=== PATIENT | male | born 1980 | race Caucasian/White ===

== ENCOUNTER 2021-11-02 23:31 | Emergency (ER) | payer MEDICAID, SELFPAY ==
[2021-11-02 23:39] VITALS: BP 160/87; BP 168/82; PULSE 105; PULSE 90; RESP 16; TEMP 36.8; O2SAT 95; O2SAT 97; BMI 25.8
[2021-11-02 23:44] LABS: Glucose, Whole Blood 111 mg/dL (60-115)
[2021-11-02 23:47] VITALS: PULSE 104; RESP 16; O2SAT 97
--- NOTE | 2021-11-03 03:31 | ED.ALCOHOL ---
HPI - Alcohol General Chief Complaint: ETOH/Substance Use Stated Complaint: ETOH USE Time Seen by Provider: 11/03/21 03:31 Source: patient Mode of arrival: EMS Limitations: no limitations History of Present Illness HPI narrative: 41-year-old male who is brought to emergency department for evaluation of alcohol intoxication. Patient states that he was drinking vodka and beer. He states that he was walking and got tired and sat down and fell asleep. Patient was found outside with altered mental status, EMS report that the patient was outside of a [employer]. The patient had no complaints and was transported to the emergency department for evaluation. When I evaluated the patient he told me that he drinks anywhere from a pint to a 5th of vodka per day. He states that he was not ill in any way prior to drinking this evening. He currently denies being ill. He denies headache, neck pain, chest pain, abdominal pain, nausea, vomiting, change in his bowel movements, frequency, urgency or dysuria. Related Data Allergies Allergy/AdvReac Type Severity Reaction Status Date / Time fish derived [FISH] Allergy Unknown UNKNOWN - Unverified 08/02/20 19:51 NOT ANAPHYLAXIS PER PATIENT Review of Systems Review of Systems: Yes all other systems are reviewed and are negative FOR[facility]LY [facility] Social History Social History Advance Directives: No Advance Directives Information Provided: No Physical Exam Vital Signs: Vital Signs: Last Vital Signs Temp 98.2 F 11/02/21 23:39 Pulse 104 H 11/02/21 23:47 Resp 16 11/02/21 23:47 BP 160/87 H 11/02/21 23:39 Pulse Ox 97 11/02/21 23:47 BMI result Body Mass Index 25.8 Const: General: cooperative and no acute distress Orientation/consciousness: oriented to person and oriented to place Limitations: no limitations HENMT: Head: Yes normal to inspection, Yes normocephalic and Yes atraumatic Ears: external ears normal General nose exam: Normal external nose present Face and sinus: Yes normal facial exam Mouth: Normal oral and palatal mucosa present Throat: Yes posterior oropharynx normal Eyes: General: appearance normal, both eyes and all related structures Pupils: Equal, round and reactive pupils present Neck: Neck: Yes normal visual inspection, Yes no lymphadenopathy, Yes trachea midline and Yes supple Chest: Chest palpation & inspection: normal inspection of the chest and normal palpation of entire chest wall Resp: Effort & Inspection: normal respiratory effort and able to speak in complete sentences Auscultation: clear to auscultation bilaterally Cardio: Rate: regular rate Rhythm: regular rhythm Heart sounds: S1 normal heart sound present, S2 normal heart sound present and no murmurs GI: Inspection: Yes normal to inspection Palpation (GI): Soft to palpation, nontender and no guarding Auscultation: normal bowel sounds : General: Yes no CVA tenderness Back/Spine/Pelvis: Back: no CVA tenderness Skin: General skin exam: no rashes or lesions noted Neuro: General: oriented to person and oriented to place Cranial nerves: Yes CN's II-XII intact bilaterally and Yes Equal, round and reactive pupils present Cognition (Neuro): normal cognition Motor exam (neuro): 5/5 motor strength present throughout Extrem: General: Yes normal to inspection Psych: Appearance: grossly normal Speech and movement: Normal speech and movement present Affect: normal affect Attitude: cooperative Thought process: Normal thought process present Thought content: Normal thought content present Course Course Course Narrative: 41-year-old male who presents emergency department for evaluation of acute intoxication. The patient was found outside of a mini marked altered. The patient admits to drinking alcohol and he patient denies any injury or illness. The patient was observed in the emergency department for several hours. He remained awake and alert. The patient was able to walk in the emergency department without any difficulty. The patient does not want any help with his alcohol use disorder at this time therefore he was discharged home. MDM - Alcohol Lab Data Labs: Lab Results 11/02/21 Range/Units 23:37 POC Glucose 111 (60-115) mg/dL Discharge Plan Discharge Clinical Impression: Alcoholic intoxication Qualifiers: Complication of substance-induced condition: uncomplicated Qualified Code(s): F10.920 - Alcohol use, unspecified with intoxication, uncomplicated Patient Disposition: Home, Self-Care Instructions: Alcohol Intoxication (ED) Additional Instructions: Follow-up with your doctor in 2 days. Please return to the emergency department if your symptoms get worse or if you develop any symptoms that are concerning to you.
--- NOTE | 2021-11-03 03:31 | PC.NURSE ---
PT AWAKE A/O SPEAKING IN FULL SENTENCES, WALKING WITH STEADY GAIT, STATING TO THIS RN I MADE A DEAL WITH THE DOC I WOULD BE OUT OF HER BY 2AM. DID VISUALIZE PT WALKING IN FRONT OF NURSES STATION. PT NOW DRESSING IN ROOM AWAITING D/C PAPERWORK
== END 2021-11-03 05:10 | disposition home or self-care (01) ==
PROVIDERS: Emergency Provider Emergency Medicine Emergency Medical Services
DX: F10.920 Alcohol use, unspecified with intoxication, uncomplicated (principal); Y90.9 Presence of alcohol in blood, level not specified
CPT/HCPCS: 82947; 99282; 99284

== ENCOUNTER 2021-12-06 09:30 | Emergency (ER) | payer MEDICAID, SELFPAY ==
[2021-12-06 09:50] VITALS: BP 123/75; PULSE 117; RESP 19; TEMP 36.2; O2SAT 97; BMI 25.7
--- NOTE | 2021-12-06 10:01 | ECG_ITS ---
Test Reason : overdose Blood Pressure : / mmHG Vent. Rate : 100 BPM Atrial Rate : 100 BPM P-R Int : 134 ms QRS Dur : 086 ms QT Int : 356 ms P-R-T Axes : 060 061 -01 degrees QTc Int : 459 ms Normal sinus rhythm Nonspecific ST abnormality Abnormal QRS-T angle, consider primary T wave abnormality Abnormal ECG No previous ECGs available Referred By: Alicia Villasenor Electronically Signed By:Elgin Kingsley
--- NOTE | 2021-12-06 10:18 | MHC.CARE ---
Addendum entered by Bee Palma, [facility] 12/06/21 11:32: recovery support Original Note: Pt should be offered SUDE when medically stable.
--- NOTE | 2021-12-06 10:19 | ED_ITS ---
HPI - Overdose General Chief Complaint: Overdose Stated Complaint: BODY ACHES/CP/SOB S/P SUBSTANCE ABUSE Time Seen by Provider: 12/06/21 10:01 Source: patient and EMS Mode of arrival: EMS Limitations: no limitations History of Present Illness HPI Narrative: 41 y/o male with history of hepatitis C, IVDA who presents to the ER with complaints of feeling freezing cold after he shot up bad dope about 2 hours ago, got sick and fell to the ground. He reports he was unable to get up for >1 hour due to not feeling good and cramping in his legs. He reports being out in the cold all night. He denies anyt trauma from the fall. His main complaint is leg cramping and pain in both legs. He reports having a staph infe ction to the back of his left leg. He has not been on antibiotics. It has not been worsening. He has not no fevers. No drainage from the area. complaint: accidental overdose Onset (ago): hour(s) Intent: unknown How Overdose Was Discovered: called 911 Context: Accidental Overdose: wanted to get high Treatments Prior to Arrival: none Related Data Allergies Allergy/AdvReac Type Severity Reaction Status Date / Time fish derived [FISH] Allergy Unknown UNKNOWN - Unverified 08/02/20 19:51 NOT ANAPHYLAXIS PER PATIENT Review of Systems Review of Systems: Constitutional: No Fever, No Chills ENT/Mouth: No sore throat, No Rhinorrhea, No Swallowing Difficulty Cardiovascular: No Chest Pain, No SOB, No Orthopnea, No Edema Respiratory: No Cough, No Sputum, No Wheezing, No dyspnea Gastrointestinal: + Nausea, + Vomiting, No Diarrhea, No abdominal Pain, No Hematochezia, No Melena Genitourinary: No Dysuria, No Urinary Frequency, No Hematuria Musculoskeletal: No joint pain, + Myalgias Skin: + Skin Lesions, No rash Neuro: No Weakness, No Numbness, No Dizziness, No Headache Psych: + Anxiety/Panic, No Depression Heme/Lymph: No Bruising, No Lymphadenopathy Endocrine: No Polyuria, No Polydipsia PMFSH Past Medical History Medical History (Updated 12/06/21 @ 16:50 by ALEIDA Kunz) Hep C w/o coma, chronic Social History Social History Advance Directives: No Advance Directives Information Provided: No Physical Exam Vital Signs: Vital Signs: Last Vital Signs Temp 99.4 F 12/06/21 15:53 Pulse 97 12/06/21 15:53 Resp 15 12/06/21 15:53 BP 133/52 L 12/06/21 15:53 Pulse Ox 93 12/06/21 15:53 BMI result Body Mass Index 25.7 Appearance: Alert. Oriented X3. Appears uncomfortable, she ring and cold. Eyes: Pupils 3mm equal, round and reactive to light. ENT: Pharynx normal. face with crusted and scabbed lesions on the left side of his face Neck: Normal inspection. Neck supple. CVS: Tachycardic, regular rhythm. Pulses normal. Respiratory: No respiratory distress. Breath sounds normal. Abdomen: Soft and nontender. +BS x4 Skin: Skin warm and dry. Normal skin color. Normal skin turgor. No rashes. Extremities: No lower extremity edema. scattered dry, flakey lesions on bilateral LE. posterior aspect of left lower leg with an oval shape 5cm lesion with red, raw skin, mild surrounding erythema. bilateral calf tenderness, quadricep tenderness, compartments are soft and compressible. pelvis stable. normal ROM x4 Neuro: Oriented X 3. No motor deficit. No sensory deficit. Moves all extremities. Course Course Course Narrative: 41-year-old male with a history of IV drug use and hepatitis C presents to the ER via EMS after he used ?bad dope,? got sick and fell to the ground and was unable to get up. He reports severe muscle aches and cramping after being out in the cold. His core temperature today is 97 degrees. Will check for electrolyte abnormalities and rhabdomyolysis. His exam does not reveal any traumatic injuries. Will monitor closely. Reevaluation(s) Reevaluation #1: Electrolytes are within normal limits. CPK in the 200s. He is tolerating p.o.. No role for IV fluids. He remains normothermic. He reports he is in alcohol withdrawal. His alcohol level is in the 80s. His CIWA score is 6. He is asking for medication for withdrawal. He reports ?goose bumps? con cern for more opiate withdrawal than alcohol withdrawal. Will discuss detox and see if he is interested in detox placement. Reevaluation #2: Patient has been accepted to [place] for detox. Patient is agreeable with plan. Spoke with provider there. Plan to treat left posterior lower leg cellulitis with oral Keflex and doxycycline for double coverage given he has a history of MRSA in the remote past. He is not septic at this time. He is stable for discharge with oral antibiotics, outpatient follow-up and plan to go directly to detox. MDM - Overdose Medical Records Attestation: I reviewed the patient's medical records. Lab Data Attestation: I reviewed the patient's lab results. Result diagrams: 12/06/21 11:40 12/06/21 11:40 Labs: Lab Results 12/06/21 12/06/21 12/06/21 Range/Units 11:40 11:40 11:40 WBC 11.5 H (4.8-10.8) X10*3/uL RBC 5.16 (4.60-5.80) X10*6/uL Hgb 11.0 L (14.0-18.0) g/dl Hct 35.1 L (42.0-52.0) % MCV 68.0 L (80.0-98.0) fL MCH 21.3 L (27.0-33.0) pg MCHC 31.3 (31.0-36.0) g/dl RDW 16.7 H (11.0-16.0) % Plt Count 301 (160-400) X10*3/uL MPV 9.6 (9.4-12.4) fL Immature Gran % (Auto) 0.4 (0.0-0.4) % Neut % (Auto) 82.9 H (45-73) % Lymph % (Auto) 7.9 L (20-40) % [place] % (Auto) 8.6 (2-11) % Eos % (Auto) 0.1 (0-4) % Baso % (Auto) 0.1 (0-2) % Lymph # (Auto) 0.9 L (1.2-4.9) X10*3/uL [place] # (Auto) 1.0 (0.1-1.2) X10*3/uL Eos # (Auto) 0.0 (0.0-0.4) X10*3/uL Baso # (Auto) 0.0 (0.0-0.2) X10*3/uL Abs Immat Gran (auto) 0.05 H (0.00-0.03) X10*3/uL Absolute Neuts (auto) 9.5 H (2.0-8.3) x10*3/uL Absolute Nucleated RBC 0.000 (0.0-0.012) X10*3/uL Nucleated RBC % (auto) 0.0 (0.0-0.2) /100WBC Sodium 137 (135-145) mmol/L Potassium 3.5 (3.3-5.1) mmol/L Chloride 102 (96-108) mmol/L Carbon Dioxide 25 (22-29) mmol/L Anion Gap 14 (12-20) BUN 8 L (9-16) mg/dL Creatinine 0.74 (0.5-1.4) mg/dL Estim Creat Clear Calc 142.7 Estimated GFR > 60 Random Glucose 110 (60-115) mg/dL Calcium 8.7 (8.4-10.2) mg/dL Magnesium 2.0 (1.6-2.6) mg/dL Total Bilirubin 0.9 (0.0-1.0) mg/dL Direct Bilirubin 0.6 H (0.0-0.5) mg/dL AST 106 H (5-37) U/L ALT 81 H (0-40) U/L Alkaline Phosphatase 77 (39-117) U/L Total Creatine Kinase 242 H (38-174) U/L Total Protein 7.2 (6.5-8.0) g/dL Albumin 3.7 (3.5-5.0) g/dL Urine Color Urine Appearance Urine pH (5.0-8.0) Ur Specific [place] (1.005-1.025) Urine Protein (NEG-TRACE) MG/DL Urine Glucose (UA) (NEG) MG/DL Urine Ketones (NEG) MG/DL Urine Blood (NEG) Urine Nitrite (NEG) Ur Leukocyte Esterase (NEG) Urine RBC (0) /HPF Urine WBC (0-4) /HPF Ur Squamous Epith Cells /LPF Urine Bacteria /LPF Urine Opiates Screen (Not Detect) Urine Fentanyl Screen (Not Detect) Ur Barbiturates Screen (Not Detect) Ur Phencyclidine Scrn (Not Detect) Ur Amphetamines Screen (Not Detect) U Benzodiazepines Scrn (Not Detect) Urine Cocaine Screen (Not Detect) U Marijuana (THC) Screen (Not Detect) Ethyl Alcohol 83 mg/dL COVID-19 (ELOY) (Negative) COVID-19 Clin Com Influenza Type A (PCR) (Negative) Influenza Type B (PCR) (Negative) RSV RNA Qual (PCR) (Negative) SARS-CoV-2 RNA (RT-PCR) (Negative) 12/06/21 12/06/21 12/06/21 Range/Units 12:20 14:20 14:20 WBC (4.8-10.8) X10*3/uL RBC (4.60-5.80) X10*6/uL Hgb (14.0-18.0) g/dl Hct (42.0-52.0) % MCV (80.0-98.0) fL MCH (27.0-33.0) pg MCHC (31.0-36.0) g/dl RDW (11.0-16.0) % Plt Count (160-400) X10*3/uL MPV (9.4-12.4) fL Immature Gran % (Auto) (0.0-0.4) % Neut % (Auto) (45-73) % Lymph % (Auto) (20-40) % [place] % (Auto) (2-11) % Eos % (Auto) (0-4) % Baso % (Auto) (0-2) % Lymph # (Auto) (1.2-4.9) X10*3/uL [place] # (Auto) (0.1-1.2) X10*3/uL Eos # (Auto) (0.0-0.4) X10*3/uL Baso # (Auto) (0.0-0.2) X10*3/uL Abs Immat Gran (auto) (0.00-0.03) X10*3/uL Absolute Neuts (auto) (2.0-8.3) x10*3/uL Absolute Nucleated RBC (0.0-0.012) X10*3/uL Nucleated RBC % (auto) (0.0-0.2) /100WBC Sodium (135-145) mmol/L Potassium (3.3-5.1) mmol/L Chloride (96-108) mmol/L Carbon Dioxide (22-29) mmol/L Anion Gap (12-20) BUN (9-16) mg/dL Creatinine (0.5-1.4) mg/dL Estim Creat Clear Calc Estimated GFR Random Glucose (60-115) mg/dL Calcium (8.4-10.2) mg/dL Magnesium (1.6-2.6) mg/dL Total Bilirubin (0.0-1.0) mg/dL Direct Bilirubin (0.0-0.5) mg/dL AST (5-37) U/L ALT (0-40) U/L Alkaline Phosphatase (39-117) U/L Total Creatine Kinase (38-174) U/L Total Protein (6.5-8.0) g/dL Albumin (3.5-5.0) g/dL Urine Color YELLOW Urine Appearance HAZY Urine pH 5.5 (5.0-8.0) Ur Specific [place] 1.025 (1.005-1.025) Urine Protein 2+ H (NEG-TRACE) MG/DL Urine Glucose (UA) NEG (NEG) MG/DL Urine Ketones NEG (NEG) MG/DL Urine Blood NEG (NEG) Urine Nitrite NEG (NEG) Ur Leukocyte Esterase NEG (NEG) Urine RBC 1-4 (0) /HPF Urine WBC 0-2 (0-4) /HPF Ur Squamous Epith Cells TRACE /LPF Urine Bacteria NONE /LPF Urine Opiates Screen (Not Detect) Urine Fentanyl Screen (Not Detect) Ur Barbiturates Screen (Not Detect) Ur Phencyclidine Scrn (Not Detect) Ur Amphetamines Screen (Not Detect) U Benzodiazepines Scrn (Not Detect) Urine Cocaine Screen (Not Detect) U Marijuana (THC) Screen (Not Detect) Ethyl Alcohol mg/dL COVID-19 ([facility]OY) Negative (Negative) COVID-19 Clin Com See Note Influenza Type A (PCR) NEGATIVE (Negative) Influenza Type B (PCR) NEGATIVE (Negative) RSV RNA Qual (PCR) NEGATIVE (Negative) SARS-CoV-2 RNA (RT-PCR) NEGATIVE (Negative) 12/06/21 Range/Units 14:20 WBC (4.8-10.8) X10*3/uL RBC (4.60-5.80) X10*6/uL Hgb (14.0-18.0) g/dl Hct (42.0-52.0) % MCV (80.0-98.0) fL MCH (27.0-33.0) pg MCHC (31.0-36.0) g/dl RDW (11.0-16.0) % Plt Count (160-400) X10*3/uL MPV (9.4-12.4) fL Immature Gran % (Auto) (0.0-0.4) % Neut % (Auto) (45-73) % Lymph % (Auto) (20-40) % [place] % (Auto) (2-11) % Eos % (Auto) (0-4) % Baso % (Auto) (0-2) % Lymph # (Auto) (1.2-4.9) X10*3/uL [place] # (Auto) (0.1-1.2) X10*3/uL Eos # (Auto) (0.0-0.4) X10*3/uL Baso # (Auto) (0.0-0.2) X10*3/uL Abs Immat Gran (auto) (0.00-0.03) X10*3/uL Absolute Neuts (auto) (2.0-8.3) x10*3/uL Absolute Nucleated RBC (0.0-0.012) X10*3/uL Nucleated RBC % (auto) (0.0-0.2) /100WBC Sodium (135-145) mmol/L Potassium (3.3-5.1) mmol/L Chloride (96-108) mmol/L Carbon Dioxide (22-29) mmol/L Anion Gap (12-20) BUN (9-16) mg/dL Creatinine (0.5-1.4) mg/dL Estim Creat Clear Calc Estimated GFR Random Glucose (60-115) mg/dL Calcium (8.4-10.2) mg/dL Magnesium (1.6-2.6) mg/dL Total Bilirubin (0.0-1.0) mg/dL Direct Bilirubin (0.0-0.5) mg/dL AST (5-37) U/L ALT (0-40) U/L Alkaline Phosphatase (39-117) U/L Total Creatine Kinase (38-174) U/L Total Protein (6.5-8.0) g/dL Albumin (3.5-5.0) g/dL Urine Color Urine Appearance Urine pH (5.0-8.0) Ur Specific [place] (1.005-1.025) Urine Protein (NEG-TRACE) MG/DL Urine Glucose (UA) (NEG) MG/DL Urine Ketones (NEG) MG/DL Urine Blood (NEG) Urine Nitrite (NEG) Ur Leukocyte Esterase (NEG) Urine RBC (0) /HPF Urine WBC (0-4) /HPF Ur Squamous Epith Cells /LPF Urine Bacteria /LPF Urine Opiates Screen POSITIVE H (Not Detect) Urine Fentanyl Screen POSITIVE H (Not Detect) Ur Barbiturates Screen Not Detected (Not Detect) Ur Phencyclidine Scrn Not Detected (Not Detect) Ur Amphetamines Screen Not Detected (Not Detect) U Benzodiazepines Scrn Not Detected (Not Detect) Urine Cocaine Screen POSITIVE H (Not Detect) U Marijuana (THC) Screen POSITIVE H (Not Detect) Ethyl Alcohol mg/dL COVID-19 ([facility]OY) (Negative) COVID-19 Clin Com Influenza Type A (PCR) (Negative) Influenza Type B (PCR) (Negative) RSV RNA Qual (PCR) (Negative) SARS-CoV-2 RNA (RT-PCR) (Negative) ECG Data ECG interpretation date: 12/06/21 ECG interpretation time: 16:52 Prior ECG tracings: not available for review Interpretation: Normal sinus rhythm, heart rate 100 beats per minute, nonspecific ST wave abnormality, normal MO interval, normal QTC, no ST segment elevations or depressions. Critical Care Time Critical Care Time Critical Care Time: No Discharge Plan Discharge Clinical Impression: Poisoning by opiate or related narcotic Cellulitis Qualifiers: Site of cellulitis: extremity Site of cellulitis of extremity: lower extremity Laterality: left Qualified Code(s): L03.116 - Cellulitis of left lower limb Patient Disposition: Home, Self-Care Instructions: Cellulitis (ED), Opioid Use Disorder (ED) Additional Instructions: Present directly to the [facility] for detox. Recommend oral antibiotics for cellulitis/infection of the skin - recommend Keflex 500 mg every 6 hours and Doxycycline 100 mg every 12 hours for 1 week (given history of MRSA in the past, this will cover possible MRSA) Follow up with your primary care doctor in 1 week If you have worsening swelling, pain, redness or develop fevers or drainage of pus call your doctor or come back to the ER for further evaluation.
[2021-12-06 11:15] VITALS: BP 123/75; PULSE 118; RESP 24; TEMP 36.1; O2SAT 96
[2021-12-06 11:44] LABS: MANUAL DIFF FLAG NO
[2021-12-06 11:47] LABS: Basophils Percent Auto 0.1 % (0-2); Eosinophils Percent Auto 0.1 % (0-4); Hematocrit 35.1 % (42.0-52.0); Imm Gran Abs Auto 0.05 X10*3/uL (0.00-0.03); Imm Gran Pct Auto 0.4 % (0.0-0.4); Lymphocytes Absolute Auto 0.9 X10*3/uL (1.2-4.9); Lymphocytes Percent Auto 7.9 % (20-40); Mean Corpuscular HGB Conc 31.3 g/dl (31.0-36.0); Mean Corpuscular Hemoglobin 21.3 pg (27.0-33.0); Mean Platelet Volume 9.6 fL (9.4-12.4); Monocytes Percent Auto 8.6 % (2-11); Neutrophils Absolute Auto 9.5 x10*3/uL (2.0-8.3); Neutrophils Percent Auto 82.9 % (45-73); Platelet Count 301 X10*3/uL (160-400); Red Blood Count 5.16 X10*6/uL (4.60-5.80); Red Cell Distribution Width 16.7 % (11.0-16.0); White Blood Count 11.5 X10*3/uL (4.8-10.8)
[2021-12-06 12:02] LABS: Ethanol 83 mg/dL
[2021-12-06 12:06] LABS: Alanine Aminotransferase 81 U/L (0-40); Albumin Level 3.7 g/dL (3.5-5.0); Alkaline Phosphatase 77 U/L (39-117); Anion Gap 14 (12-20); Aspartate Amino Transferase 106 U/L (5-37); Bilirubin Direct 0.6 mg/dL (0.0-0.5); Bilirubin Total 0.9 mg/dL (0.0-1.0); Blood Urea Nitrogen 8 mg/dL (9-16); Calcium 8.7 mg/dL (8.4-10.2); Carbon Dioxide 25 mmol/L (22-29); Chloride 102 mmol/L (96-108); Creatinine Clr Calc Pharmacy 142.7; Estimated Glomerular Filt Rate > 60; Glucose Random 110 mg/dL (60-115); Potassium 3.5 mmol/L (3.3-5.1); Sodium 137 mmol/L (135-145); Total Protein 7.2 g/dL (6.5-8.0)
--- NOTE | 2021-12-06 12:15 | PC.NURSE ---
pt a difficult stick, uncooperative during attempt for U/S guided IV by KRISTOPHER Astudillo. this RN made an attempt without luck. ALEIDA Vargas made aware. phlebotomy called to obtain lab work
[2021-12-06 12:48] LABS: COVID-19 Test Negative (Negative); IDNOW Serial# 9DD0AD1C
[2021-12-06] MEDS: 0.9 % Sodium Chloride 1,000 ML 999 ML IVCONT (12:59)
[2021-12-06 13:09] VITALS: PULSE 94; RESP 14
[2021-12-06] MEDS: LORazepam 1 MG TABLET PO (13:26)
--- NOTE | 2021-12-06 14:34 | MHC.RECOVSUP ---
Recovery Support note: Patient is a 41 year old [place] African speaking male who presented to [facility] via EMS after using heroin and being unable to get up off the ground. Patient is medically cleared and was referred to this consumer loan underwriter for assistance securing an ATS bed. Patient reports using 1-2 bundles of heroin a day and half a gallon of vodka. Patient reports he has been using this quantity consistently for over a week. Patient reports 4 overdoses with the most recent occurring summer. Patient denies SI and also denies HI. Patient reports a remote history of suicidality however continues to deny SI at this time. Patient reports anxiety and depression and currently does not have providers. Patient denies AH and also denies VH. Discussed case with crisis/CARE Team. No further evaluation necessary at this time.
[2021-12-06 14:38] LABS: Appearance Urine HAZY; Color Urine YELLOW; Glucose Urine UA NEG (NEG); Leukocyte Esterase Urine NEG (NEG); Nitrite Urine NEG (NEG); PH 5.5 (5.0-8.0); Specific Gravity - Urine 1.025 (1.005-1.025); UACC Culture Trigger NO; Urine Blood NEG (NEG); Urine Ketones NEG (NEG); Urine Protein 2+ MG/DL (NEG-TRACE)
[2021-12-06 14:47] LABS: Squamous Epithelial Cell Urine TRACE /LPF; WBC Urine 0-2 /HPF (0-4)
[2021-12-06 14:54] LABS: Amphetamine Screen Urine Not Detected (Not Detect); Barbiturates, Urine Not Detected (Not Detect); Benzodiazepines Screen Urine Not Detected (Not Detect); Cannabinoid Screen Urine POSITIVE (Not Detect); Cocaine Screen Urine POSITIVE (Not Detect); Fentanyl, urine POSITIVE (Not Detect); Opiate Screen Urine POSITIVE (Not Detect); Phencyclidine Screen Urine Not Detected (Not Detect)
[2021-12-06 14:55] VITALS: PULSE 96; RESP 17; O2SAT 93
[2021-12-06 15:09] LABS: Influenza A PCR NEGATIVE (Negative); Influenza B PCR NEGATIVE (Negative); Resp Syncy Virus RNA Qual PCR NEGATIVE (Negative); SARS COV2 PCR INHOUSE NEGATIVE (Negative)
[2021-12-06 15:53] VITALS: BP 133/52; PULSE 97; RESP 15; TEMP 37.4; O2SAT 93
--- NOTE | 2021-12-06 15:57 | MHC.RECOVSUP ---
Recovery Support note: [facility] 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
[2021-12-06] MEDS: LORazepam 2 MG/ML VIAL IM (18:14)
== END 2021-12-06 18:45 | disposition home or self-care (01) ==
PROVIDERS: Physician Assistant; Emergency Provider Emergency Medicine Emergency Medical Services
DX: T40.2X1A Poisoning by other opioids, accidental (unintentional), initial encounter (principal); R25.2 Cramp and spasm; F11.10 Opioid abuse, uncomplicated; Y92.410 Unspecified street and highway as the place of occurrence of the external cause; L03.116 Cellulitis of left lower limb; Z20.822 Contact with and (suspected) exposure to COVID-19; F19.10 Other psychoactive substance abuse, uncomplicated; B19.20 Unspecified viral hepatitis C without hepatic coma; Z86.14 Personal history of Methicillin resistant Staphylococcus aureus infection; F12.90 Cannabis use, unspecified, uncomplicated; F14.90 Cocaine use, unspecified, uncomplicated; F17.200 Nicotine dependence, unspecified, uncomplicated
CPT/HCPCS: 0241U; 80048; 80076; 80307; 81001; 82077; 82550; 83735; 85025; 87635; 93005; 96360; 96372; 99284; 99285; J2060

== ENCOUNTER 2021-12-06 19:13 | Emergency (ER) | payer MEDICAID, SELFPAY ==
[2021-12-06 19:28] VITALS: BP 130/82; BP 138/70; PULSE 78; PULSE 98; RESP 16; TEMP 37.4; O2SAT 96; O2SAT 99; BMI 28.7
--- NOTE | 2021-12-06 19:43 | MHC.RECOVSUP ---
? Reason for consult o Current location: o Identified substance use concern: - Overdose - Withdrawal - Seeking ATS (detox) - Support ? Intervention: o ATS bed search started/completed/in process o MAT started or to be started o Community resources provided o Harm reduction discussion ? Plan: o Referral to [facility] o Bed search in progress to o Follow up tomorrow o Patient awaiting crisis evaluation o Patient to follow up with [facility] after discharge ? Additional information:pt seen at for etoh and hypothermia, treated and discharged to [facility] and on arrival they refused to take the pt and they had to bring the pt back to .. Not much info was given why he was refused.. But we think its because his [facility] status.. There is no beds anywhere tonight.
--- NOTE | 2021-12-06 19:44 | ED_ITS ---
HPI - General Adult General Chief complaint: ETOH/Substance Use Stated complaint: ETOH/Withdrawals Time Seen by Provider: 12/06/21 19:43 Source: patient, EMS and old records reviewed Mode of arrival: EMS History of Present Illness HPI narrative: Patient is a 41 year old male presenting to the emergency department today with alcohol withdrawal, cellulitis, and requiring placement for detox. Patient states that he was seen here earlier this evening when he was diagnosed with cellulitis of the lower limb and need placement for withdrawal from alcohol. Patient states that he was sent to the [facility], where he was turned away and sent back here. Patient denies any dizziness, lightheadedness, abdominal pain, nausea, vomiting, fever, chills, blurry vision, double vision, loss of vision, chest pain, difficulty breathing, shortness of breath, back pain, night sweats, pain with urination, increased urinary frequency, increased urinary urgency, blood in his urine or stool, syncope or a near syncopal episode, recent trauma or falls, bowel incontinence, bladder incontinence, bowel retention, bladder retention, or any other complaints at this time. Onset (ago): hour(s) Radiation: non-radiation Severity: mild Relieving factors: none Exacerbating factors: none Associated symptoms: denies other symptoms Related Data Previous Rx's Medication Instructions Recorded cephalexin 500 mg capsule 500 mg PO Q6H 7 Days #28 cap 12/06/21 doxycycline hyclate 100 mg tablet 100 mg PO BID #14 tab 12/06/21 Allergies Allergy/AdvReac Type Severity Reaction Status Date / Time fish derived [FISH] Allergy Unknown UNKNOWN - Unverified 08/02/20 19:51 NOT ANAPHYLAXIS PER PATIENT Review of Systems Constitutional: Constitutional: Reports no additional constitutional complaints, Denies chills, Denies fever(s) and Denies night sweats Eyes: Eyes: Reports no additional eye complaints, Denies blurry vision, Denies change in vision, Denies diplopia, Denies eye discharge, Denies loss of vision and Denies eye pain ENT: Denies dizziness Cardiovascular: Cardiovascular: Reports no additional cardiovascular complaints, Denies chest pain, Denies lightheadedness, Denies Loss of Consciousness and Denies dyspnea Respiratory: Respiratory: Reports no additional respiratory complaints and Denies dyspnea Gastrointestinal: Gastrointestinal: Reports no additional gastrointestinal complaints, Denies abdominal pain, Denies melena, Denies hematochezia, Denies change in bowel habits and Denies change in stool character Genitourinary: Genitourinary: Reports no additional male genitourinary complaints, Denies hematuria, Denies oliguria, Denies difficulty urinating, Denies dysuria, Denies urinary frequency, Denies urinary hesitancy, Denies urinary incontinence and Denies urinary urgency Musculoskeletal: Musculoskeletal: Reports no additional musculoskeletal complaints, Denies numbness and Denies tingling Neurologic: Denies dizziness, Denies loss of vision, Denies numbness and Denies tingling Psychiatric: Psychiatric: Reports no additional psychiatric complaints Endocrine: Endocrine: Reports no additional endocrine complaints Hematologic/Lymphatic: Hematologic/Lymphatic: Reports no additional hematologic/lymphatic complaints Allergic/Immunologic: Allergic/Immunologic: Reports no additional allergic/immunologic complaints [facility] Past Medical History Attestation statement: The following information was validated with the patient. Medical History Hep C w/o coma, chronic Social History Social History Alcohol intake: current Alcohol intake frequency: 3 or more drinks per day Alcohol type: hard liquor Patient Tobacco Use Status: Current everyday Tobacco user Smoked in Last 30 Days: Yes Use of substances other than those prescribed or required for medical reasons: Yes Substance Use Type: Heroin Substance Use Frequency: Daily Advance Directives: No Physical Exam Vital Signs: Vital Signs: Last Vital Signs Temp 99.3 F 12/06/21 19:28 Pulse 89 12/06/21 21:52 Resp 18 12/06/21 21:52 BP 134/62 12/06/21 21:52 Pulse Ox 97 12/06/21 21:52 BMI result Body Mass Index 28.7 Const: General: cooperative, no acute distress, alert and awake Nutritional Appearance: well nourished Orientation/consciousness: patient oriented x3 Limitations: no limitations HENMT: Head: Yes normal to inspection and Yes atraumatic Ears: hearing grossly normal bilaterally and external ears normal General nose exam: Normal external nose present, no nasal discharge noted and no epistaxis Face and sinus: Yes normal facial exam, No abrasion and No laceration Mouth: Normal oral and palatal mucosa present, no drooling and no muffled voice Eyes: General: appearance normal, both eyes and all related structures Periorbital: periorbital findings normal Eyelids: Yes eyelids normal Conjunctivae: conjunctivae normal Pupils: Equal, round and reactive pupils present EOM: EOMs intact bilaterally Neck: Neck: Yes normal visual inspection, Yes full ROM and Yes no lymphadenop athy Chest: Chest palpation & inspection: normal inspection of the chest Resp: Effort & Inspection: normal respiratory effort and able to speak in complete sentences GI: Inspection: Yes normal to inspection Neuro: General: patient oriented x3 and moves all extremities Cranial nerves: Yes Equal, round and reactive pupils present Cognition (Neuro): normal cognition Motor exam (neuro): 5/5 motor strength present throughout Sensory Exam: Normal double simultaneous stimulation for sensation Coordination: [id number] test normal Extrem: General: Yes normal to inspection, Yes full ROM and Yes capillary refill normal Psych: Appearance: grossly normal Mental Status: mental status grossly normal Affect: normal affect Attitude: cooperative Thought process: Normal thought process present Thought content: Normal thought content present Insight: Good insight present (Psych) Medical Decision Making [facility] Narrative Medical decision making narrative: Patient is a 41 year old male presenting to the emergency department today requesting alcohol detox. Patient's physical exam was unremarkable. Patient's previous workup, done earlier today, was reviewed and it was not necessary to repeat due to [facility] and [facility]. I explained my physical exam findings to the patient. I answered all questions asked by the patient. Patient received Librium which he stated helped his symptoms significantly. [facility], pending a care team consultation, in the morning, for placement for detox. Differential Diagnosis Differential Diagnosis: Alcohol detox, medical examination, [facility] Medical Records Medical records reviewed: Yes I reviewed the patient's medical records. Lab Data Lab results reviewed: Yes I reviewed the patient's lab results. Discharge Plan Discharge Clinical Impression: Alcohol withdrawal syndrome Patient Disposition: Still a Patient Prescriptions: No Action doxycycline hyclate 100 mg tablet 100 mg PO BID Qty: 14 RF: 0 cephalexin 500 mg capsule 500 mg PO Q6H 7 Days Qty: 28 RF: 0
--- NOTE | 2021-12-06 19:48 | PC.NURSE ---
late entry 1900. this rn recieved call from Ro, Clinical Coordinator, at [facility] in [place]. [phone]. Ro stating that patient is being brought back to ED b/c pt is ineligible for care but it cannot be explained why it may have to do with his discharge
--- NOTE | 2021-12-06 21:27 | PC.NURSE ---
report given to overflow. pt is sleeping vitals stable. skin pink warm and dry. no changes to facial scabs.
[2021-12-06 21:52] VITALS: BP 134/62; PULSE 89; RESP 18; O2SAT 97
[2021-12-06] MEDS: chlordiazePOXIDE HCl 25 MG CAPSULE 50 MG PO (22:01)
--- NOTE | 2021-12-06 23:02 | PC.NURSE ---
Assumed care of pt at 2300. Pt sleeping, even and non-labored respirations noted. Awaiting care team eval in the AM
[2021-12-06 23:21] VITALS: BP 156/87; PULSE 89; RESP 20; O2SAT 98
[2021-12-07 07:40] VITALS: BP 155/83; PULSE 68; RESP 14; O2SAT 97
--- NOTE | 2021-12-07 09:02 | MHC.RECOVSUP ---
Recovery Support note: Patient is a 41 year old [place]er speaking male who presented to [facility] via [facility] after [facility]. This blurb writer met with patient to discuss treatment options. Patient initially expressed interest in going to detox and was referred to [facility]. Informed patient that we may have to expand the bedsearch to [place] if nothing is available locally. Shortly later patient reported that he has called his brother and that he would like to leave. Discussed case with ED provider. Patient safe to discharge with resources.
== END 2021-12-07 09:11 | disposition left against medical advice (07) ==
PROVIDERS: Emergency Provider Internal Medicine
DX: F10.130 Alcohol abuse with withdrawal, uncomplicated (principal); Y90.9 Presence of alcohol in blood, level not specified; L03.116 Cellulitis of left lower limb
CPT/HCPCS: 99284; 99285

== ENCOUNTER 2021-12-20 09:58 | Emergency (ER) | payer MEDICAID, SELFPAY ==
[2021-12-20] VITALS (8 sets, daily range): BP systolic 138–166; BP diastolic 66–99; PULSE 76–102; RESP 12–20; TEMP 36.1–37.5; O2SAT 94–97; BMI 25.8
--- NOTE | ~2021-12-20 | XR_ITS ---
EXAMINATION: XR CHEST CLINICAL INFORMATION: Weakness COMPARISON: CT chest 08/02/2020 TECHNIQUE: 2 views of the chest were obtained. FINDINGS: No significant abnormality is noted involving the heart, lungs, mediastinum, bony thorax or soft tissues. XR/XR chest 2V IMPRESSION: Unremarkable chest examination.
--- NOTE | 2021-12-20 11:40 | ECG_ITS ---
Test Reason : weakness Blood Pressure : / mmHG Vent. Rate : 066 BPM Atrial Rate : 066 BPM P-R Int : 148 ms QRS Dur : 088 ms QT Int : 454 ms P-R-T Axes : 049 039 017 degrees QTc Int : 475 ms Sinus rhythm with marked sinus arrhythmia Otherwise normal ECG When compared with ECG of 06-DEC-2021 11:03, Vent. rate has decreased BY 34 BPM Referred By: Henny Charles Electronically Signed By:BURAK TIMMONS
--- NOTE | 2021-12-20 11:41 | ED_ITS ---
HPI - General Adult General Chief complaint: General Medical <Henny Charles NP - Last Filed: 12/20/21 20:44> Stated complaint: BODY SWELLING NOT FEELING RIGHT DETOX <Henny Charles NP - Last Filed: 12/20/21 20:44> Time Seen by Provider: 12/20/21 11:14 <Henny Charles NP - Last Filed: 12/20/21 20:44> Source: patient <Henny Charles NP - Last Filed: 12/20/21 20:44> Mode of arrival: ambulatory <Henny Charles NP - Last Filed: 12/20/21 20:44> Limitations: no limitations <Henny Charles NP - Last Filed: 12/20/21 20:44> History of Present Illness HPI narrative: 41yo male with history of IV drug abuse and alcohol abuse who is currently homeless here with reports of generalized body aches with chills since yesterday. Patient tells me he does not have a thermometer but he does not think he was febrile. He also had some vomiting, diarrhea and abdominal cramps today. No cough, shortness of breath, chest pain, headache, neck pain, uti symptoms. Patient does report a history of psoriasis and so he has some wounds to the lower extremities. Patient has received covid vaccine x2 w/ booster last week. <Henny Charles NP - Last Filed: 12/20/21 20:44> Related Data Allergies/adverse reactions: Allergies Allergy/AdvReac Type Severity Reaction Status Date / Time fish derived [FISH] Allergy Unknown UNKNOWN - Unverified 08/02/20 19:51 NOT ANAPHYLAXIS PER PATIENT <Henny Charles NP - Last Filed: 12/20/21 20:44> Review of Systems Verdana 4l Review of Systems: Verdana 4d Yes all other systems are reviewed and are negative Verdana 4Il <Henny Charles NP - Last Filed: 12/20/21 20:44> Verdana 4d Verdana 4l Constitutional: Verdana 4d Verdana 4d Constitutional: Verdana 4d Reports no additional constitutional complaints, Reports body ache(s), Reports chills, Denies fever(s), Denies headache(s) and Denies weakness Verdana 4Il <Henny Charles NP - Last Filed: 12/20/21 20:44> Eyes: Eyes: Reports no additional eye complaints and Denies change in vision <Henny Charles NP - Last Filed: 12/20/21 20:44> ENT: Reports system reviewed and no additional complaints, except as documented, Denies dizziness, Denies headache(s), Denies nasal congestion, Denies nasal discharge and Denies neck pain <Henny Charles NP - Last Filed: 12/20/21 20:44> Cardiovascular: Cardiovascular: Reports no additional cardiovascular complaints, Denies chest pain, Denies leg edema and Denies dyspnea <Henny Charles NP - Last Filed: 12/20/21 20:44> Respiratory: Respiratory: Reports no additional respiratory complaints, Denies cough and Denies dyspnea <Henny Charles NP - Last Filed: 12/20/21 20:44> Gastrointestinal: Gastrointestinal: Reports no additional gastrointestinal complaints, Reports abdominal pain, Reports diarrhea, Reports nausea and Reports vomiting <Henny Charles NP - Last Filed: 12/20/21 20:44> Genitourinary: Genitourinary: Denies urinary incontinence <Henny Charles NP - Last Filed: 12/20/21 20:44> Musculoskeletal: Musculoskeletal: Reports no additional musculoskeletal complaints, Denies back pain, Denies arthralgias, Denies joint swelling, Denies neck pain, Denies numbness and Denies tingling <Henny Charles NP - Last Filed: 12/20/21 20:44> Integumentary/Breasts: Skin/Breast: Reports system reviewed and no additional complaints, except as docu and Denies rash <Henny Charles NP - Last Filed: 12/20/21 20:44> Neurologic: Denies Abnormal speech present, Denies dizziness, Denies headache(s), Denies numbness, Denies tingling and Denies weakness <Henny Charles NP - Last Filed: 12/20/21 20:44> PMFSH Past Medical History Attestation statement: The following information was validated with the patient. <Henny Charles NP - Last Filed: 12/20/21 20:44> Source: old records reviewed and nursing notes reviewed <Henny Charles NP - Last Filed: 12/20/21 20:44> Medical History: Medical History Hep C w/o coma, chronic <Henny Charles NP - Last Filed: 12/20/21 20:44> Social History Social History: Social History (Updated 12/20/21 @ 11:50 by Henny Charles NP) Alcohol intake: current Alcohol intake frequency: 3 or more drinks per day Alcohol type: hard liquor Patient Tobacco Use Status: Current everyday Tobacco user Smoked in Last 30 Days: Yes Use of substances other than those prescribed or required for medical reasons: Yes Substance Use Type: Heroin, IV Drugs and Other Substance Use Type Other:: fentanyl Substance Use Frequency: Daily Last Used Substance: Just Prior to Admission Advance Directives: No Advance Directives Information Provided: No <Henny Charles NP - Last Filed: 12/20/21 20:44> Physical Exam Verdana 4l Vital Signs: Verdana 4d Verdana 4d Vital Signs: Verdana 4d Verdana 4Bd Last Vital Signs Verdana 4d Project Manager/Design Manager New 4d Project Manager/Design Manager New 4d Temp 98.6 F 12/20/21 23:45 Project Manager/Design Manager New 4d Pulse 88 12/20/21 23:45 Project Manager/Design Manager New 4d Resp 16 12/21/21 07:33 BP 152/86 H 12/20/21 23:45 Pulse Ox 97 12/20/21 23:45 BMI result Body Mass Index 25.8 <Henny Charles NP - Last Filed: 12/20/21 20:44> Vital Signs: Last Vital Signs Temp 98.6 F 12/20/21 23:45 Pulse 88 12/20/21 23:45 Resp 12/21/21 07:33 BP 152/86 H 12/20/21 23:45 Pulse Ox 97 12/20/21 23:45 BMI result Body Mass Index 25.8 <ALEIDA Zaragoza - Last Filed: 12/21/21 10:22> Const: General: alert and poor hygiene <Henny Charles NP - Last Filed: 12/20/21 20:44> Orientation/consciousness: patient oriented x3 <Henny Charles NP - Last Filed: 12/20/21 20:44> Limitations: no limitations <Henny Charles NP - Last Filed: 12/20/21 20:44> HENMT: Head: Yes normal to inspection <eHnny Charles NP - Last Filed: 12/20/21 20:44> Ears: hearing grossly normal bilaterally and TM's normal bilaterally <Henny Charles NP - Last Filed: 12/20/21 20:44> General nose exam: Normal external nose present <Henny Charles NP - Last Filed: 12/20/21 20:44> Face and sinus: Yes normal facial exam <Henny Charles NP - Last Filed: 0 12/20/21 20:44> Mouth: Normal oral and palatal mucosa present <Henny Charles NP - Last Filed: 12/20/21 20:44> Throat: Yes posterior oropharynx normal, Yes tonsils normal and Yes uvula midline <Henny Charles NP - Last Filed: 12/20/21 20:44> Eyes: General: appearance normal, both eyes and all related structures <Henny Charles NP - Last Filed: 12/20/21 20:44> Pupils: Equal, round and reactive pupils present <Henny hCarles NP - Last Filed: 12/20/21 20:44> Neck: Neck: Yes normal visual inspection, Yes full ROM, Yes no lymphadenopathy and Yes no meningeal signs <Henny Charles NP - Last Filed: 12/20/21 20:44> Chest: Chest palpation & inspection: normal inspection of the chest <Henny Charles NP - Last Filed: 12/20/21 20:44> Resp: Effort & Inspection: normal respiratory effort <Henny Charles NP - Last Filed: 12/20/21 20:44> Auscultation: clear to auscultation bilaterally <Henny Charles NP - Last Filed: 12/20/21 20:44> Cardio: Rate: regular rate <Henny Charles NP - Last Filed: 12/20/21 20:44> Rhythm: regular rhythm <Henny Charles NP - Last Filed: 12/20/21 20:44> Peripheral pulses: Peripheral pulses 2+ throughout <Henny Charles NP - Last Filed: 12/20/21 20:44> GI: Inspection: Yes normal to inspection <Henny Charles NP - Last Filed: 12/20/21 20:44> Palpation (GI): Soft to palpation and nontender <Henny Charles NP - Last Filed: 12/20/21 20:44> Auscultation: normal bowel sounds <Henny Charles NP - Last Filed: 12/20/21 20:44> Back/Spine/Pelvis: Thoracic/Lumbar Spine: thoracic and lumbar spine normal to inspection <Henny Charles NP - Last Filed: 12/20/21 20:44> Skin: General skin exam: no rashes or lesions noted <Henny Charles NP - Last Filed: 12/20/21 20:44> Neuro: General: patient oriented x3, no meningeal signs, no focal motor deficits and normal sensation to monofilament <Henny Charles NP - Last Filed: 12/20/21 20:44> Cranial nerves: Yes CN's II-XII intact bilaterally, Yes Equal, round and reactive pupils present, Yes Bilaterally intact EOM present, Yes Nystagmus not present, Yes Normal facial strength present and Yes Midline tongue present <Henny Charles NP - Last Filed: 12/20/21 20:44> Cognition (Neuro): normal cognition <Henny Charles NP - Last Filed: 03/07 20:44> Speech: No Abnormal speech present <Henny Charles NP - Last Filed: 12/20/21 20:44> Gait exam (Neuro): Normal gait present <Henny Charles NP - Last Filed: 12/20/21 20:44> Motor exam (neuro): 5/5 motor strength present throughout <Henny Charles NP - Last Filed: 12/20/21 20:44> Sensory Exam: Normal double simultaneous stimulation for sensation <Henyn Charles NP - Last Filed: 12/20/21 20:44> Extrem: Other: To the lower legs there are plaque like lesions noted. To the posterior left knee there is an abrasion with some crusting but no surrounding erythema, fluctuance or warmth. To the soles of both feet there is maceration with no open wounds, erythema, warmth <Henny Charles NP - Last Filed: 12/20/21 20:44> General: Yes normal to inspection <Henny Charles NP - Last Filed: 12/20/21 20:44> Course Course Course Narrative: 41 yo male with a history of IV drug abuse and alcohol abuse here with reports of chills and body aches since yesterday. Patient reports generalized malaise and fatigue. His last use of fentanyl was just prior to arrival. The patient reports using about 20 bags per day IV. He did use 2 bags prior to arrival. Patient also reports drinking about half a pt of liquor a day his last use was yesterday. He does not feel like he is withdrawing. Patient states ?I am sick . Will check labs including blood cultures, lactic acid, chest x-ray, EKG, UA, C OVID screen 1250-labs show no leukocytosis or shift. Negative lactic acid. EKG unchanged from previous. Chest x-ray and COVID screen negative. Patient alcohol levels show 183. Drug screen shows poly substances. UA is pending. ?withdrawal related. Patient is interested in detox so will speak to recovery team. At this point he is medically cleared 2020-care team is actively working on obtaining a detox bed for the patient. The patient has required p.r.n. Ativan for withdrawal symptoms from alcohol. Nursing will monitor his CIWA scores closely. 2100-Sign out to Dr Dougherty pending placement <Henny Charles NP - Last Filed: 12/20/21 20:44> Reevaluation(s) Reevaluation #1: Pt placed at [facility] [place] in [facility], being discharged this morning He is CIWA, will medicate prior to transport <ALEIDA Zaragoza - Last Filed: 12/21/21 10:22> Time: 10:21 <ALEIDA Zaragoza - Last Filed: 12/21/21 10:22> Medical Decision Making MDM Narrative Medical decision making narrative: Consider cellulitis. Skin exam is normal Consider meningitis but no headache, fever here, leukocytosis, nuchal rigidity Consider endocarditis but no reports of chest pain, no EKG changes, no murmur on exam. No fever here. No reports of back pain or neurological deficits concerning for osteomyelitis or epidural abscess <Henny Charles NP - Last Filed: 12/20/21 20:44> Medical Records Medical records reviewed: Yes I reviewed the patient's medical records. <Henny Charles NP - Last Filed: 12/20/21 20:44> Lab Data Lab results reviewed: Yes I reviewed the patient's lab results. <Henny Charles NP - Last Filed: 12/20/21 20:44> Result diagrams: : 12/20/21 11:56 12/20/21 11:56 <Henny Charles NP - Last Filed: 12/20/21 20:44> Labs: Lab Results 12/20/21 12/20/21 12/20/21 Range/Units 11:47 11:47 11:48 WBC (4.8-10.8) X10*3/uL RBC (4.60-5.80) X10*6/uL Hgb (14.0-18.0) g/dl Hct (42.0-52.0) % MCV (80.0-98.0) fL MCH (27.0-33.0) pg MCHC (31.0-36.0) g/dl RDW (11.0-16.0) % Plt Count (160-400) X10*3/uL MPV (9.4-12.4) fL Immature Gran % (0.0-0.4) % (Auto) Neut % (Auto) (45-73) % Lymph % (Auto) (20-40) % [place] % (Auto) (2-11) % Eos % (Auto) (0-4) % Baso % (Auto) (0-2) % Lymph # (Auto) (1.2-4.9) X10*3/uL [place] # (Auto) (0.1-1.2) X10*3/uL Eos # (Auto) (0.0-0.4) X10*3/uL Baso # (Auto) (0.0-0.2) X10*3/uL Abs Immat Gran (auto) (0.00-0.03) X10*3/uL Absolute Neuts (auto) (2.0-8.3) x10*3/uL Absolute Nucleated (0.0-0.012) RBC X10*3/uL Nucleated RBC % (0.0-0.2) /100WBC (auto) PT (9.9-13.0) SEC INR (0.9-1.1) Sodium (135-145) mmol/L Potassium (3.3-5.1) mmol/L Chloride (96-108) mmol/L Carbon Dioxide (22-29) mmol/L Anion Gap (12-20) BUN (9-16) mg/dL Creatinine (0.5-1.4) mg/dL Estim Creat Clear Calc Estimated GFR Random Glucose (60-115) mg/dL Lactic Acid (0.5-2.0) mmol/L Calcium (8.4-10.2) mg/dL Magnesium (1.6-2.6) mg/dL Total Bilirubin (0.0-1.0) mg/dL Direct Bilirubin (0.0-0.5) mg/dL AST (5-37) U/L ALT (0-40) U/L Alkaline Phosphatase (39-117) U/L Total Creatine Kinase (38-174) U/L Troponin I High Sens (<3.5-35.0) ng/L C-Reactive Protein (< or = 0.50) mg/dL B-Natriuretic Peptide (<100) pg/mL Total Protein (6.5-8.0) g/dL Albumin (3.5-5.0) g/dL Lipase (8-78) U/L Urine Color YELLOW Urine Appearance CLEAR Urine pH 8.0 (5.0-8.0) Ur Specific Barnett 1.015 (1.005-1.025) Urine Protein 2+ H (NEG-TRACE) MG/DL Urine Glucose (UA) NEG (NEG) MG/DL Urine Ketones NEG (NEG) MG/DL Urine Blood NEG (NEG) Urine Nitrite NEG (NEG) Ur Leukocyte Esterase NEG (NEG) Urine RBC 0-2 (0) /HPF Urine WBC 0 (0-4) /HPF Ur Squamous Epith NONE /LPF Cells Urine Bacteria NONE /LPF Urine Opiates Screen POSITIVE H (Not Detect) Urine Fentanyl Screen POSITIVE H (Not Detect) Ur Barbiturates Not Detected (Not Detect) Screen Ur Phencyclidine Scrn Not Detected (Not Detect) Ur Amphetamines Not Detected (Not Detect) Screen U Benzodiazepines POSITIVE H (Not Detect) Scrn Urine Cocaine Screen Not Detected (Not Detect) U Marijuana (THC) Not Detected (Not Detect) Screen Ethyl Alcohol mg/dL Influenza Type A NEGATIVE (Negative) (PCR) Influenza Type B NEGATIVE (Negative) (PCR) RSV RNA Qual (PCR) NEGATIVE (Negative) SARS-CoV-2 RNA NEGATIVE (Negative) (RT-PCR) 12/20/21 12/20/21 12/20/21 Range/Units 11:56 11:56 11:56 WBC 5.9 (4.8-10.8) X10*3/uL RBC 5.20 (4.60-5.80) X10*6/uL Hgb 10.9 L (14.0-18.0) g/dl Hct 34.9 L (42.0-52.0) % MCV 67.1 L (80.0-98.0) fL MCH 21.0 L (27.0-33.0) pg MCHC 31.2 (31.0-36.0) g/dl RDW 15.8 (11.0-16.0) % Plt Count 352 (160-400) X10*3/uL MPV 9.1 L (9.4-12.4) fL Immature Gran % (Auto) 0.3 (0.0-0.4) % Neut % (Auto) 73.5 H (45-73) % Lymph % (Auto) 16.9 L (20-40) % [place] % (Auto) 8.6 (2-11) % Eos % (Auto) 0.2 (0-4) % Baso % (Auto) 0.5 (0-2) % Lymph # (Auto) 1.0 L (1.2-4.9) X10*3/uL [place] # (Auto) 0.5 (0.1-1.2) X10*3/uL Eos # (Auto) 0.0 (0.0-0.4) X10*3/uL Baso # (Auto) 0.0 (0.0-0.2) X10*3/uL Abs Immat Gran (auto) 0.02 (0.00-0.03) X10*3/uL Absolute Neuts (auto) 4.4 (2.0-8.3) x10*3/uL Absolute Nucleated RBC 0.000 (0.0-0.012) X10*3/uL Nucleated RBC % (auto) 0.0 (0.0-0.2) /100WBC PT 12.6 (9.9-13.0) SEC INR 1.1 (0.9-1.1) Sodium 137 (135-145) mmol/L Potassium 4.0 (3.3-5.1) mmol/L Chloride 100 (96-108) mmol/L Carbon Dioxide 28 (22-29) mmol/L Anion Gap 13 (12-20) BUN 4 L (9-16) mg/dL Creatinine 0.72 (0.5-1.4) mg/dL Estim Creat Clear Calc 138.0 Estimated GFR > 60 Random Glucose 132 H (60-115) mg/dL Lactic Acid (0.5-2.0) mmol/L Calcium 9.0 (8.4-10.2) mg/dL Magnesium 1.7 (1.6-2.6) mg/dL Total Bilirubin 0.7 (0.0-1.0) mg/dL Direct Bilirubin 0.4 (0.0-0.5) mg/dL AST 166 H (5-37) U/L ALT 100 H (0-40) U/L Alkaline Phosphatase 111 D (39-117) U/L Total Creatine Kinase 258 H (38-174) U/L Troponin I High Sens (<3.5-35.0) ng/L C-Reactive Protein 0.08 (< or = 0.50) mg/dL B-Natriuretic Peptide (<100) pg/mL Total Protein 7.9 (6.5-8.0) g/dL Albumin 4.0 (3.5-5.0) g/dL Lipase 27 (8-78) U/L Urine Color Urine Appearance Urine pH (5.0-8.0) Ur Specific Barnett (1.005-1.025) Urine Protein (NEG-TRACE) MG/DL Urine Glucose (UA) (NEG) MG/DL Urine Ketones (NEG) MG/DL Urine Blood (NEG) Urine Nitrite (NEG) Ur Leukocyte Esterase (NEG) Urine RBC (0) /HPF Urine WBC (0-4) /HPF Ur Squamous Epith Cells /LPF Urine Bacteria /LPF Urine Opiates Screen (Not Detect) Urine Fentanyl Screen (Not Detect) Ur Barbiturates Screen (Not Detect) Ur Phencyclidine Scrn (Not Detect) Ur Amphetamines Screen (Not Detect) U Benzodiazepines Scrn (Not Detect) Urine Cocaine Screen (Not Detect) U Marijuana (THC) Screen (Not Detect) Ethyl Alcohol mg/dL Influenza Type A (PCR) (Negative) Influenza Type B (PCR) (Negative) RSV RNA Qual (PCR) (Negative) SARS-CoV-2 RNA (RT-PCR) (Negative) 12/20/21 12/20/21 12/20/21 Range/Units 11:56 11:56 11:56 WBC (4.8-10.8) X10*3/uL RBC (4.60-5.80) X10*6/uL Hgb (14.0-18.0) g/dl Hct (42.0-52.0) % MCV (80.0-98.0) fL MCH (27.0-33.0) pg MCHC (31.0-36.0) g/dl RDW (11.0-16.0) % Plt Count (160-400) X10*3/uL MPV (9.4-12.4) fL Immature Gran % (Auto) (0.0-0.4) % Neut % (Auto) (45-73) % Lymph % (Auto) (20-40) % [place] % (Auto) (2-11) % Eos % (Auto) (0-4) % Baso % (Auto) (0-2) % Lymph # (Auto) (1.2-4.9) X10*3/uL [place] # (Auto) (0.1-1.2) X10*3/uL Eos # (Auto) (0.0-0.4) X10*3/uL Baso # (Auto) (0.0-0.2) X10*3/uL Abs Immat Gran (auto) (0.00-0.03) X10*3/uL Absolute Neuts (auto) (2.0-8.3) x10*3/uL Absolute Nucleated RBC (0.0-0.012) X10*3/uL Nucleated RBC % (auto) (0.0-0.2) /100WBC PT (9.9-13.0) SEC INR (0.9-1.1) Sodium (135-145) mmol/L Potassium (3.3-5.1) mmol/L Chloride (96-108) mmol/L Carbon Dioxide (22-29) mmol/L Anion Gap (12-20) BUN (9-16) mg/dL Creatinine (0.5-1.4) mg/dL Estim Creat Clear Calc Estimated GFR Random Glucose (60-115) mg/dL Lactic Acid 1.9 (0.5-2.0) mmol/L Calcium (8.4-10.2) mg/dL Magnesium (1.6-2.6) mg/dL Total Bilirubin (0.0-1.0) mg/dL Direct Bilirubin (0.0-0.5) mg/dL AST (5-37) U/L ALT (0-40) U/L Alkaline Phosphatase (39-117) U/L Total Creatine Kinase (38-174) U/L Troponin I High Sens < 3.5 (<3.5-35.0) ng/L C-Reactive Protein (< or = 0.50) mg/dL B-Natriuretic Peptide 12 (<100) pg/mL Total Protein (6.5-8.0) g/dL Albumin (3.5-5.0) g/dL Lipase (8-78) U/L Urine Color Urine Appearance Urine pH (5.0-8.0) Ur Specific Barnett (1.005-1.025) Urine Protein (NEG-TRACE) MG/DL Urine Glucose (UA) (NEG) MG/DL Urine Ketones (NEG) MG/DL Urine Blood (NEG) Urine Nitrite (NEG) Ur Leukocyte Esterase (NEG) Urine RBC (0) /HPF Urine WBC (0-4) /HPF Ur Squamous Epith Cells /LPF Urine Bacteria /LPF Urine Opiates Screen (Not Detect) Urine Fentanyl Screen (Not Detect) Ur Barbiturates Screen (Not Detect) Ur Phencyclidine Scrn (Not Detect) Ur Amphetamines Screen (Not Detect) U Benzodiazepines Scrn (Not Detect) Urine Cocaine Screen (Not Detect) U Marijuana (THC) Screen (Not Detect) Ethyl Alcohol 183 mg/dL Influenza Type A (PCR) (Negative) Influenza Type B (PCR) (Negative) RSV RNA Qual (PCR) (Negative) SARS-CoV-2 RNA (RT-PCR) (Negative) <Henny Charles, MEDICATION MANAGER - Last Filed: 12/20/21 20:44> Lab Results 12/20/21 12/20/21 12/20/21 Range/Units 11:47 11:47 11:48 WBC (4.8-10.8) X10*3/uL RBC (4.60-5.80) X10*6/uL Hgb (14.0-18.0) g/dl Hct (42.0-52.0) % MCV (80.0-98.0) fL MCH (27.0-33.0) pg MCHC (31.0-36.0) g/dl RDW (11.0-16.0) % Plt Count (160-400) X10*3/uL MPV (9.4-12.4) fL Immature Gran % (0.0-0.4) % (Auto) Neut % (Auto) (45-73) % Lymph % (Auto) (20-40) % [place] % (Auto) (2-11) % Eos % (Auto) (0-4) % Baso % (Auto) (0-2) % Lymph # (Auto) (1.2-4.9) X10*3/uL [place] # (Auto) (0.1-1.2) X10*3/uL Eos # (Auto) (0.0-0.4) X10*3/uL Baso # (Auto) (0.0-0.2) X10*3/uL Abs Immat Gran (auto) (0.00-0.03) X10*3/uL Absolute Neuts (auto) (2.0-8.3) x10*3/uL Absolute Nucleated (0.0-0.012) RBC X10*3/uL Nucleated RBC % (0.0-0.2) /100WBC (auto) PT (9.9-13.0) SEC INR (0.9-1.1) Sodium (135-145) mmol/L Potassium (3.3-5.1) mmol/L Chloride (96-108) mmol/L Carbon Dioxide (22-29) mmol/L Anion Gap (12-20) BUN (9-16) mg/dL Creatinine (0.5-1.4) mg/dL Estim Creat Clear Calc Estimated GFR Random Glucose (60-115) mg/dL Lactic Acid (0.5-2.0) mmol/L Calcium (8.4-10.2) mg/dL Magnesium (1.6-2.6) mg/dL Total Bilirubin (0.0-1.0) mg/dL Direct Bilirubin (0.0-0.5) mg/dL AST (5-37) U/L ALT (0-40) U/L Alkaline Phosphatase (39-117) U/L Total Creatine Kinase (38-174) U/L Troponin I High Sens (<3.5-35.0) ng/L C-Reactive Protein (< or = 0.50) mg/dL B-Natriuretic Peptide (<100) pg/mL Total Protein (6.5-8.0) g/dL Albumin (3.5-5.0) g/dL Lipase (8-78) U/L Urine Color YELLOW Urine Appearance CLEAR Urine pH 8.0 (5.0-8.0) Ur Specific [place]ett 1.015 (1.005-1.025) Urine Protein 2+ H (NEG-TRACE) MG/DL Urine Glucose (UA) NEG (NEG) MG/DL Urine Ketones NEG (NEG) MG/DL Urine Blood NEG (NEG) Urine Nitrite NEG (NEG) Ur Leukocyte Esterase NEG (NEG) Urine RBC 0-2 (0) /HPF Urine WBC 0 (0-4) /HPF Ur Squamous Epith NONE /LPF Cells Urine Bacteria NONE /LPF Urine Opiates Screen POSITIVE H (Not Detect) Urine Fentanyl Screen POSITIVE H (Not Detect) Ur Barbiturates Not Detected (Not Detect) Screen Ur Phencyclidine Scrn Not Detected (Not Detect) Ur Amphetamines Not Detected (Not Detect) Screen U Benzodiazepines POSITIVE H (Not Detect) Scrn Urine Cocaine Screen Not Detected (Not Detect) U Marijuana (THC) Not Detected (Not Detect) Screen Ethyl Alcohol mg/dL Influenza Type A NEGATIVE (Negative) (PCR) Influenza Type B NEGATIVE (Negative) (PCR) RSV RNA Qual (PCR) NEGATIVE (Negative) SARS-CoV-2 RNA NEGATIVE (Negative) (RT-PCR) 12/20/21 12/20/21 12/20/21 Range/Units 11:56 11:56 11:56 WBC 5.9 (4.8-10.8) X10*3/uL RBC 5.20 (4.60-5.80) X10*6/uL Hgb 10.9 L (14.0-18.0) g/dl Hct 34.9 L (42.0-52.0) % MCV 67.1 L (80.0-98.0) fL MCH 21.0 L (27.0-33.0) pg MCHC 31.2 (31.0-36.0) g/dl RDW 15.8 (11.0-16.0) % Plt Count 352 (160-400) X10*3/uL MPV 9.1 L (9.4-12.4) fL Immature Gran % (Auto) 0.3 (0.0-0.4) % Neut % (Auto) 73.5 H (45-73) % Lymph % (Auto) 16.9 L (20-40) % [place] % (Auto) 8.6 (2-11) % Eos % (Auto) 0.2 (0-4) % Baso % (Auto) 0.5 (0-2) % Lymph # (Auto) 1.0 L (1.2-4.9) X10*3/uL [place] # (Auto) 0.5 (0.1-1.2) X10*3/uL Eos # (Auto) 0.0 (0.0-0.4) X10*3/uL Baso # (Auto) 0.0 (0.0-0.2) X10*3/uL Abs Immat Gran (auto) 0.02 (0.00-0.03) X10*3/uL Absolute Neuts (auto) 4.4 (2.0-8.3) x10*3/uL Absolute Nucleated RBC 0.000 (0.0-0.012) X10*3/uL Nucleated RBC % (auto) 0.0 (0.0-0.2) /100WBC PT 12.6 (9.9-13.0) SEC INR 1.1 (0.9-1.1) Sodium 137 (135-145) mmol/L Potassium 4.0 (3.3-5.1) mmol/L Chloride 100 (96-108) mmol/L Carbon Dioxide 28 (22-29) mmol/L Anion Gap 13 (12-20) BUN 4 L (9-16) mg/dL Creatinine 0.72 (0.5-1.4) mg/dL Estim Creat Clear Calc 138.0 Estimated GFR > 60 Random Glucose 132 H (60-115) mg/dL Lactic Acid (0.5-2.0) mmol/L Calcium 9.0 (8.4-10.2) mg/dL Magnesium 1.7 (1.6-2.6) mg/dL Total Bilirubin 0.7 (0.0-1.0) mg/dL Direct Bilirubin 0.4 (0.0-0.5) mg/dL AST 166 H (5-37) U/L ALT 100 H (0-40) U/L Alkaline Phosphatase 111 D (39-117) U/L Total Creatine Kinase 258 H (38-174) U/L Troponin I High Sens (<3.5-35.0) ng/L C-Reactive Protein 0.08 (< or = 0.50) mg/dL B-Natriuretic Peptide (<100) pg/mL Total Protein 7.9 (6.5-8.0) g/dL Albumin 4.0 (3.5-5.0) g/dL Lipase 27 (8-78) U/L Urine Color Urine Appearance Urine pH (5.0-8.0) Ur Specific [place] (1.005-1.025) Urine Protein (NEG-TRACE) MG/DL Urine Glucose (UA) (NEG) MG/DL Urine Ketones (NEG) MG/DL Urine Blood (NEG) Urine Nitrite (NEG) Ur Leukocyte Esterase (NEG) Urine RBC (0) /HPF Urine WBC (0-4) /HPF Ur Squamous Epith Cells /LPF Urine Bacteria /LPF Urine Opiates Screen (Not Detect) Urine Fentanyl Screen (Not Detect) Ur Barbiturates Screen (Not Detect) Ur Phencyclidine Scrn (Not Detect) Ur Amphetamines Screen (Not Detect) U Benzodiazepines Scrn (Not Detect) Urine Cocaine Screen (Not Detect) U Marijuana (THC) Screen (Not Detect) Ethyl Alcohol mg/dL Influenza Type A (PCR) (Negative) Influenza Type B (PCR) (Negative) RSV RNA Qual (PCR) (Negative) SARS-CoV-2 RNA (RT-PCR) (Negative) 12/20/21 12/20/21 12/20/21 Range/Units 11:56 11:56 11:56 WBC (4.8-10.8) X10*3/uL RBC (4.60-5.80) X10*6/uL Hgb (14.0-18.0) g/dl Hct (42.0-52.0) % MCV (80.0-98.0) fL MCH (27.0-33.0) pg MCHC (31.0-36.0) g/dl RDW (11.0-16.0) % Plt Count (160-400) X10*3/uL MPV (9.4-12.4) fL Immature Gran % (Auto) (0.0-0.4) % Neut % (Auto) (45-73) % Lymph % (Auto) (20-40) % [place] % (Auto) (2-11) % Eos % (Auto) (0-4) % Baso % (Auto) (0-2) % Lymph # (Auto) (1.2-4.9) X10*3/uL [place] # (Auto) (0.1-1.2) X10*3/uL Eos # (Auto) (0.0-0.4) X10*3/uL Baso # (Auto) (0.0-0.2) X10*3/uL Abs Immat Gran (auto) (0.00-0.03) X10*3/uL Absolute Neuts (auto) (2.0-8.3) x10*3/uL Absolute Nucleated RBC (0.0-0.012) X10*3/uL Nucleated RBC % (auto) (0.0-0.2) /100WBC PT (9.9-13.0) SEC INR (0.9-1.1) Sodium (135-145) mmol/L Potassium (3.3-5.1) mmol/L Chloride (96-108) mmol/L Carbon Dioxide (22-29) mmol/L Anion Gap (12-20) BUN (9-16) mg/dL Creatinine (0.5-1.4) mg/dL Estim Creat Clear Calc Estimated GFR Random Glucose (60-115) mg/dL Lactic Acid 1.9 (0.5-2.0) mmol/L Calcium (8.4-10.2) mg/dL Magnesium (1.6-2.6) mg/dL Total Bilirubin (0.0-1.0) mg/dL Direct Bilirubin (0.0-0.5) mg/dL AST (5-37) U/L ALT (0-40) U/L Alkaline Phosphatase (39-117) U/L Total Creatine Kinase (38-174) U/L Troponin I High Sens < 3.5 (<3.5-35.0) ng/L C-Reactive Protein (< or = 0.50) mg/dL B-Natriuretic Peptide 12 (<100) pg/mL Total Protein (6.5-8.0) g/dL Albumin (3.5-5.0) g/dL Lipase (8-78) U/L Urine Color Urine Appearance Urine pH (5.0-8.0) Ur Specific Barnett (1.005-1.025) Urine Protein (NEG-TRACE) MG/DL Urine Glucose (UA) (NEG) MG/DL Urine Ketones (NEG) MG/DL Urine Blood (NEG) Urine Nitrite (NEG) Ur Leukocyte Esterase (NEG) Urine RBC (0) /HPF Urine WBC (0-4) /HPF Ur Squamous Epith Cells /LPF Urine Bacteria /LPF Urine Opiates Screen (Not Detect) Urine Fentanyl Screen (Not Detect) Ur Barbiturates Screen (Not Detect) Ur Phencyclidine Scrn (Not Detect) Ur Amphetamines Screen (Not Detect) U Benzodiazepines Scrn (Not Detect) Urine Cocaine Screen (Not Detect) U Marijuana (THC) Screen (Not Detect) Ethyl Alcohol 183 mg/dL Influenza Type A (PCR) (Negative) Influenza Type B (PCR) (Negative) RSV RNA Qual (PCR) (Negative) SARS-CoV-2 RNA (RT-PCR) (Negative) <ALEIDA Zaragoza - Last Filed: 12/21/21 10:22> Imaging Data Chest x-ray: Attestation: I personally reviewed and interpreted this imaging study as follows: <Henny Charles NP - Last Filed: 12/20/21 20:44> Radiologist's impression: EXAMINATION: XR CHEST CLINICAL INFORMATION: Weakness COMPARISON: CT chest 08/02/2020 TECHNIQUE: 2 views of the chest were obtained. FINDINGS: No significant abnormality is noted involving the heart, lungs, mediastinum, bony thorax or soft tissues. XR/XR chest 2V IMPRESSION: Unremarkable chest examination. <Henny Charles NP - Last Filed: 12/20/21 20:44> ECG Data Attestation: I personally reviewed and interpreted this ECG as follows: <Henny Charles NP - Last Filed: 12/20/21 20:44> Interpretation: Sinus rhythm with sinus arrhythmia with rate Sixty-six, normal [place], normal QRS, normal QT, ST depressions leads V1 and V2 unchanged with EKG from 12/06/2021 <Henny Charles NP - Last Filed: 12/20/21 20:44> Discharge Plan Discharge Clinical Impression: Opioid use disorder, Alcohol abuse <Henny Charles NP - Last Filed: 12/20/21 20:44> Patient Disposition: Still a Patient <Henny Charles NP - Last Filed: 12/20/21 20:44> Instructions: Abuse of Alcohol (DC), Opioid Use Disorder (ED) <Henny Charles NP - Last Filed: 12/20/21 20:44>
[2021-12-20 12:03] LABS: MANUAL DIFF FLAG NO
[2021-12-20 12:07] LABS: Appearance Urine CLEAR; Color Urine YELLOW; Glucose Urine UA NEG (NEG); Leukocyte Esterase Urine NEG (NEG); Nitrite Urine NEG (NEG); Specific Gravity - Urine 1.015 (1.005-1.025); UACC Culture Trigger NO; Urine Blood NEG (NEG); Urine Ketones NEG (NEG); Urine Protein 2+ MG/DL (NEG-TRACE)
[2021-12-20 12:09] LABS: Basophils Percent Auto 0.5 % (0-2); Eosinophils Percent Auto 0.2 % (0-4); Hematocrit 34.9 % (42.0-52.0); Hemoglobin 10.9 g/dl (14.0-18.0); Imm Gran Abs Auto 0.02 X10*3/uL (0.00-0.03); Imm Gran Pct Auto 0.3 % (0.0-0.4); Lymphocytes Percent Auto 16.9 % (20-40); Mean Corpuscular HGB Conc 31.2 g/dl (31.0-36.0); Mean Corpuscular Volume 67.1 fL (80.0-98.0); Mean Platelet Volume 9.1 fL (9.4-12.4); Monocytes Absolute Auto 0.5 X10*3/uL (0.1-1.2); Monocytes Percent Auto 8.6 % (2-11); Neutrophils Absolute Auto 4.4 x10*3/uL (2.0-8.3); Neutrophils Percent Auto 73.5 % (45-73); Platelet Count 352 X10*3/uL (160-400); Red Cell Distribution Width 15.8 % (11.0-16.0); White Blood Count 5.9 X10*3/uL (4.8-10.8)
[2021-12-20 12:16] LABS: Lactic Acid 1.9 mmol/L (0.5-2.0)
[2021-12-20 12:17] LABS: RBC Urine 0-2 /HPF (0); WBC Urine 0 /HPF (0-4)
[2021-12-20 12:18] LABS: Ethanol 183 mg/dL
[2021-12-20 12:22] LABS: INTERNATIONAL NORM RATIO 1.1 (0.9-1.1); Prothrombin Time 12.6 SEC (9.9-13.0)
[2021-12-20 12:26] LABS: B Type Natriuretic Peptide 12 pg/mL (<100); Troponin-I High Sensitivity < 3.5 ng/L (<3.5-35.0)
[2021-12-20 12:40] LABS: Alanine Aminotransferase 100 U/L (0-40); Alkaline Phosphatase 111 U/L (39-117); Anion Gap 13 (12-20); Aspartate Amino Transferase 166 U/L (5-37); Bilirubin Direct 0.4 mg/dL (0.0-0.5); Bilirubin Total 0.7 mg/dL (0.0-1.0); Blood Urea Nitrogen 4 mg/dL (9-16); C Reactive Protein 0.08 mg/dL (< or = 0.50); Carbon Dioxide 28 mmol/L (22-29); Chloride 100 mmol/L (96-108); Estimated Glomerular Filt Rate > 60; Glucose Random 132 mg/dL (60-115); Lipase 27 U/L (8-78); Magnesium 1.7 mg/dL (1.6-2.6); Sodium 137 mmol/L (135-145); Total Protein 7.9 g/dL (6.5-8.0)
[2021-12-20 12:46] LABS: Influenza A PCR NEGATIVE (Negative); Influenza B PCR NEGATIVE (Negative); Resp Syncy Virus RNA Qual PCR NEGATIVE (Negative); SARS COV2 PCR INHOUSE NEGATIVE (Negative)
[2021-12-20 12:49] LABS: Amphetamine Screen Urine Not Detected (Not Detect); Barbiturates, Urine Not Detected (Not Detect); Benzodiazepines Screen Urine POSITIVE (Not Detect); Cannabinoid Screen Urine Not Detected (Not Detect); Cocaine Screen Urine Not Detected (Not Detect); Fentanyl, urine POSITIVE (Not Detect); Opiate Screen Urine POSITIVE (Not Detect); Phencyclidine Screen Urine Not Detected (Not Detect)
[2021-12-20] MEDS: LORazepam 1 MG TABLET 2 MG PO ×3 (13:16→22:45)
--- NOTE | 2021-12-20 13:30 | MHC.RECOVSUP ---
Recovery Support note: Patient is a 41 year old Tanzanian speaking male who presented [place] [facility] seeking detox reporting he does not feel well. Patient was medically cleared and referred to this jingle writer for ATS referrals. Patient reports using up to 30 bags of heroin daily and up to half a gallon of vodka. Patient reports he has not drank today and he is feeling sick Patient is willing to go anywhere for treatment. This jingle writer will assist patient in referring to ATS facilities.
--- NOTE | 2021-12-20 17:05 | PC.NURSE ---
Pt is requesting more ativan, not scoring on CIWA at this time. Last dose was approximately at 1300 and recieved 2mg PO. VSS.
--- NOTE | 2021-12-20 17:06 | MHC.RECOVSUP ---
Recovery Support note: Patient declined from [facility] due to lab values. Informed patient. [facility] is the only facility with a bed at this time. Patient continues to report he is not willing to go there. Patient stated to this rfp writer I'll just tell them I'm going to kill myself, [facility]. Discussed case with patient's RN and jv baseball coach. life skills coach will check in with patient and will continue searching for an [facility] bed.
--- NOTE | 2021-12-20 18:48 | PC.NURSE ---
Brought up concerns regarding ETOH withdrawal management to [facility] [employer], per request Updated VS and CIWA in system. Awaiting orders for medication management at this time.
--- NOTE | 2021-12-20 19:53 | PC.NURSE ---
Patient scored 16 on CIWA at 1934, provider notified/ordered Ativan 2 mg PO/administered as ordered pending effect, will continue to monitor for alcohol withdrawal.
--- NOTE | 2021-12-21 06:53 | PC.NURSE ---
Patient slept through the night, no distress observed/reported, asymptomatic of withdrawal at this time, per care team patient's disposition is detox bed search, patient currently not on any medication this time, will continue to monitor.
[2021-12-21 07:33] VITALS: RESP 16
--- NOTE | 2021-12-21 07:55 | PC.NURSE ---
pt is sleeping resp even and unlabored.
[2021-12-21] MEDS: LORazepam 1 MG TABLET 2 MG PO (10:35)
--- NOTE | 2021-12-21 10:48 | PC.NURSE ---
Patient was escorted to waiting room with belongings and discharge paperwork to await ride to detox. Scot from care team accompanied hime to await ride. Patient verbally stated he understood discharge instruction.
--- NOTE | 2021-12-21 10:48 | MHC.RECOVSUP ---
Recovery Support note: Patient accepted to [facility] [place] and transported to facility via Ly[employer].
== END 2021-12-21 10:58 | disposition other institution (70) ==
PROVIDERS: Nurse Practitioner Family; Emergency Provider Emergency Medicine
DX: F11.99 Opioid use, unspecified with unspecified opioid-induced disorder (principal); F10.10 Alcohol abuse, uncomplicated; Y90.6 Blood alcohol level of 120-199 mg/100 ml; R68.83 Chills (without fever); M79.10 Myalgia, unspecified site; F19.10 Other psychoactive substance abuse, uncomplicated; Z20.822 Contact with and (suspected) exposure to COVID-19
CPT/HCPCS: 0241U; 71046; 80048; 80076; 80307; 81001; 82077; 82550; 83605; 83690; 83735; 83880; 84484; 85025; 85610; 86140; 87040; 93005; 99285

== ENCOUNTER 2022-01-04 12:55 | Inpatient (IN) | payer MEDICAID, OTHER, SELFPAY ==
--- NOTE | ~2022-01-04 | XR_ITS ---
EXAMINATION: XR CHEST CLINICAL INFORMATION: Chest pain and shortness of breath COMPARISON: 12/20/2021 TECHNIQUE: Frontal view of the chest was obtained. FINDINGS: No significant abnormality is noted involving the heart, lungs, mediastinum, bony thorax or soft tissues. XR/XR chest 1V IMPRESSION: Unremarkable examination.
[2022-01-04 13:09] VITALS: BP 120/77; PULSE 84; RESP 20; TEMP 37.1; O2SAT 99; BMI 25.8
--- NOTE | 2022-01-04 13:39 | ED_ITS ---
HPI - Psych General Chief Complaint: Psychiatric Symptoms Stated Complaint: crisis Time Seen by Provider: 01/04/22 13:39 Source: patient Mode of arrival: ambulatory Limitations: no limitations History of Present Illness HPI Narrative: 41-year-old male past medical history significant for homelessness, hepatitis-C, IV drug abuse, alcohol use disorder presents to the emergency department with suicidal ideation with plan, chest pain and shortness of breath. Patient tells me that he has been feeling this way since yesterday. He tells me he feels short of breath particularly when he takes a deep breath and. He tells me when he takes a deep breath in his chest also hurts. He tells me his chest pain is substernal, nonradiating. He tells me he has never experienced this before. He explains to me that he was recently in detox for heroin, cocaine, methamphetamines in [place] however he left detox because he felt like it was not working for him. Patient tells me that his plan is to kill himself with a firea rm, he has access to a firearm he tells me he wants to use his brother's rifle. He denies visual, auditory and tactile hallucinations. He tells me he used heroin, and drink some alcohol yesterday night. He denies any drug or alcohol use today. He tells me he would want to be quick and easy. Patient has no medical complaints at this time, denies chest pain, shortness of breath, nausea, vomiting, fevers, chills, abdominal pain, weakness, lethargy, headache, dizziness. Patient does not have outpatient providers at this time. MD complaint: suicidal ideation Onset (ago): week(s) (2) Duration: constant Relieving factors: none Exacerbating factors: none Associated psychiatric symptoms: none Associated symptoms: denies other symptoms Treatments prior to arrival: none If self harm: admits thoughts of self harm and has plan (with firearm) Related Data Home Medications Medication Instructions Recorded Confirmed No Known Home Meds 01/04/22 01/04/22 Allergies Allergy/AdvReac Type Severity Reaction Status Date / Time fish derived [FISH] Allergy Unknown UNKNOWN - Unverified 08/02/20 19:51 NOT ANAPHYLAXIS PER PATIENT Review of Systems Review of Systems: Constitutional : No Fever, No Chills ENT/Mouth : No Ear Pain, No Nasal Congestion, No sore throat Eyes: No Eye Pain, No Swelling, No Redness Cardiovascular : + Chest Pain, + SOB Respiratory : No Cough, No Sputum, No Dyspnea Gastrointestinal : No Nausea, No Vomiting, No Diarrhea, No Hematochezia, No Melena Genitourinary : No Dysuria, No Urinary Frequency, No Hematuria Musculoskeletal : No Myalgias Skin : No Skin Lesions, No rash Neuro : No Weakness, No Numbness, No Paresthesias, No Dizziness, No Headache Psych : positive Anxiety, positive Depression, positive SI/HI All other systems reviewed and are negative Yes all other systems are reviewed and are negative [facility] Past Medical History Attestation statement: The following information was validated with the patient. Source: old records reviewed and nursing notes reviewed Medical History Hep C w/o coma, chronic Social History Social History (Updated 12/20/21 @ 11:50 by Henny Charles NP) Alcohol intake: current Alcohol intake frequency: 3 or more drinks per day Alcohol type: hard liquor Patient Tobacco Use Status: Current everyday Tobacco user Substance Use Type: Heroin, IV Drugs and Other Advance Directives: No Advance Directives Information Provided: No Physical Exam Vital Signs: Vital Signs: Last Vital Signs Temp 98.7 F 01/04/22 13:09 Pulse 84 01/04/22 13:09 Resp 20 01/04/22 13:09 BP 120/77 01/04/22 13:09 Pulse Ox 99 01/04/22 13:09 BMI result Body Mass Index 25.8 vss Appearance: Alert.? Oriented X3.? No acute distress.? Head: Normocephalic, atraumatic, no step-offs or deformities Eyes: Pupils equal, round and reactive to light.? ENT: Pharynx normal.? No tongue fasciculations. Neck: Normal inspection.? Neck supple.? CVS: Normal heart rate and rhythm.? Pulses normal.? Respiratory: No respiratory distress.? Breath sounds normal.? Abdomen: Soft and nontender.? Skin: Skin warm and dry.? Normal skin color.? Normal skin turgor.? Extremities: No lower extremity edema.? No calf ttp, negative abisai b/l. 5/5 strength to bilateral upper and lower extremities. No asterixis. Back: No midline tenderness, no C-spine tenderness, full range of motion, no CVA tenderness bilaterally Neuro: Oriented X 3.? No motor deficit.? No sensory deficit. CN 2-12 intact Course Reevaluation(s) Reevaluation #1: Patient noted to have a microcytic anemia. Platelets are noted to be elevated however this appears to be patient's baseline. D-dimer negative. Trop negative. No acute electrolyte abnormalities. Ethanol 46. COVID negative. UA, urine tox, CXR pending Time: 15:11 Reevaluation #2: Chest x-ray unremarkable. UA, urine toxicology still pending at this time. Unlikely that this is a PE, ACS, or pneumonia. At this time patient will be placed in physician observation to allow more time to be evaluated by the behavioral health team. At time that observation was started patient was, cooperative in no acute distress. No signs of acute alcohol withdrawal, or opiate withdrawal at this time. Will continue to monitor. Time: 16:08 MDM - Psych MDM Narrative Medical decision making narrative: 1343 41 yo m pmhx homelessness, hep c, IVDA, alcohol abuse presents with chest pain and sob, si w/ plan to use fire arm, he tells me he would use his brothers rifle. Was in detox 3 weeks ago which he feels like didnt work PE benign. Negative abisai b/l. Neuro itact. CN 2-12 itact. Based off patient history and physical examination PE is unlikely however due to the patient explaining that his chest pain is pleuritic in nature will order a D-dimer, and troponin to rule out PE/DVT and ACS. Plan- labs, EKG, troponin, D-dimer, urine, ethanol, ley, BHN consult. Based off patient's history and physical examination patient should be placed on a Section [address] Curtis sign it. Medical Records Attestation: I reviewed the patient's medical records. Lab Data Attestation: I reviewed the patient's lab results. Result diagrams: 01/04/22 14:18 01/04/22 14:17 Labs: Lab Results 01/04/22 01/04/22 01/04/22 Range/Units 13:59 14:17 14:17 WBC (4.8-10.8) X10*3/uL RBC (4.60-5.80) X10*6/uL Hgb (14.0-18.0) g/dl Hct (42.0-52.0) % MCV (80.0-98.0) fL MCH (27.0-33.0) pg MCHC (31.0-36.0) g/dl RDW (11.0-16.0) % Plt Count (160-400) X10*3/uL MPV (9.4-12.4) fL Immature Gran % (Auto) (0.0-0.4) % Neut % (Auto) (45-73) % Lymph % (Auto) (20-40) % Emanuel % (Auto) (2-11) % Eos % (Auto) (0-4) % Baso % (Auto) (0-2) % Lymph # (Auto) (1.2-4.9) X10*3/uL Emanuel # (Auto) (0.1-1.2) X10*3/uL Eos # (Auto) (0.0-0.4) X10*3/uL Baso # (Auto) (0.0-0.2) X10*3/uL Abs Immat Gran (auto) (0.00-0.03) X10*3/uL Absolute Neuts (auto) (2.0-8.3) x10*3/uL Absolute Nucleated RBC (0.0-0.012) X10*3/uL Nucleated RBC % (auto) (0.0-0.2) /100WBC D-Dimer High Sensitivty NG/ML Sodium 135 (135-145) mmol/L Potassium 3.5 (3.3-5.1) mmol/L Chloride 100 (96-108) mmol/L Carbon Dioxide 25 (22-29) mmol/L Anion Gap 14 (12-20) BUN 10 D (9-16) mg/dL Creatinine 0.73 (0.5-1.4) mg/dL Estim Creat Clear Calc 136.1 Estimated GFR > 60 Random Glucose 159 H (60-115) mg/dL Calcium 9.0 (8.4-10.2) mg/dL Troponin I High Sens (<3.5-35.0) ng/L Ethyl Alcohol 46 mg/dL COVID-19 (ELOY) Negative (Negative) COVID-19 Clin Com See Note 01/04/22 01/04/22 01/04/22 Range/Units 14:17 14:18 14:18 WBC 8.7 (4.8-10.8) X10*3/uL RBC 4.75 (4.60-5.80) X10*6/uL Hgb 10.1 L (14.0-18.0) g/dl Hct 31.9 L (42.0-52.0) % MCV 67.2 L (80.0-98.0) fL MCH 21.3 L (27.0-33.0) pg MCHC 31.7 (31.0-36.0) g/dl RDW 14.3 (11.0-16.0) % Plt Count 429 H (160-400) X10*3/uL MPV 10.3 (9.4-12.4) fL Immature Gran % (Auto) 0.5 H (0.0-0.4) % Neut % (Auto) 71.5 (45-73) % Lymph % (Auto) 16.7 L (20-40) % Emanuel % (Auto) 10.4 (2-11) % Eos % (Auto) 0.6 (0-4) % Baso % (Auto) 0.3 (0-2) % Lymph # (Auto) 1.5 (1.2-4.9) X10*3/uL Emanuel # (Auto) 0.9 (0.1-1.2) X10*3/uL Eos # (Auto) 0.1 (0.0-0.4) X10*3/uL Baso # (Auto) 0.0 (0.0-0.2) X10*3/uL Abs Immat Gran (auto) 0.04 H (0.00-0.03) X10*3/uL Absolute Neuts (auto) 6.2 (2.0-8.3) x10*3/uL Absolute Nucleated RBC 0.000 (0.0-0.012) X10*3/uL Nucleated RBC % (auto) 0.0 (0.0-0.2) /100WBC D-Dimer High Sensitivty 225 NG/ML Sodium (135-145) mmol/L Potassium (3.3-5.1) mmol/L Chloride (96-108) mmol/L Carbon Dioxide (22-29) mmol/L Anion Gap (12-20) BUN (9-16) mg/dL Creatinine (0.5-1.4) mg/dL Estim Creat Clear Calc Estimated GFR Random Glucose (60-115) mg/dL Calcium (8.4-10.2) mg/dL Troponin I High Sens 3.5 (<3.5-35.0) ng/L Ethyl Alcohol mg/dL COVID-19 (LEOY) (Negative) COVID-19 Clin Com ECG Data Attestation: I personally reviewed and interpreted this ECG as follows: ECG interpretation date: 01/04/22 ECG interpretation time: 14:15 Prior ECG tracings: available for review Interpretation: Ventricular rate 86, DC normal, QRS normal, QT/QTC normal. EKG shows normal sinus rhythm. No ST elevations or inversions concerning for ischemia. No significant changes when compared to EKG from December 2021. Critical Care Time Critical Care Time Critical Care Time: No Discharge Plan Discharge Clinical Impression: Suicidal ideation Patient Disposition: Still a Patient Prescriptions: No Action No Known Home Meds 0RF
--- NOTE | 2022-01-04 13:53 | ECG_ITS ---
Test Reason : chest pain Blood Pressure : / mmHG Vent. Rate : 086 BPM Atrial Rate : 086 BPM P-R Int : 122 ms QRS Dur : 086 ms QT Int : 394 ms P-R-T Axes : 062 057 026 degrees QTc Int : 471 ms Normal sinus rhythm Normal ECG When compared with ECG of 20-DEC-2021 11:57, No significant change was found Referred By: Leilani Case Electronically Signed By:SANDRA LINK MD
--- NOTE | 2022-01-04 14:04 | PHA.MEDREC ---
Pharmacy Consult ? Medication Reconciliation Pharmacy has completed the medication reconciliation. No known home meds. Vee PatelD
[2022-01-04] MEDS: LORazepam 1 MG TABLET PO (14:14)
[2022-01-04 14:23] LABS: MANUAL DIFF FLAG NO
[2022-01-04 14:32] LABS: Basophils Percent Auto 0.3 % (0-2); Eosinophils Absolute Auto 0.1 X10*3/uL (0.0-0.4); Eosinophils Percent Auto 0.6 % (0-4); Hematocrit 31.9 % (42.0-52.0); Hemoglobin 10.1 g/dl (14.0-18.0); Imm Gran Abs Auto 0.04 X10*3/uL (0.00-0.03); Imm Gran Pct Auto 0.5 % (0.0-0.4); Lymphocytes Absolute Auto 1.5 X10*3/uL (1.2-4.9); Lymphocytes Percent Auto 16.7 % (20-40); Mean Corpuscular HGB Conc 31.7 g/dl (31.0-36.0); Mean Corpuscular Hemoglobin 21.3 pg (27.0-33.0); Mean Corpuscular Volume 67.2 fL (80.0-98.0); Mean Platelet Volume 10.3 fL (9.4-12.4); Monocytes Absolute Auto 0.9 X10*3/uL (0.1-1.2); Monocytes Percent Auto 10.4 % (2-11); Neutrophils Absolute Auto 6.2 x10*3/uL (2.0-8.3); Neutrophils Percent Auto 71.5 % (45-73); Platelet Count 429 X10*3/uL (160-400); Red Blood Count 4.75 X10*6/uL (4.60-5.80); Red Cell Distribution Width 14.3 % (11.0-16.0); White Blood Count 8.7 X10*3/uL (4.8-10.8)
[2022-01-04 14:34] LABS: D Dimer High Sensitivity 225 NG/ML
[2022-01-04 14:38] LABS: Ethanol 46 mg/dL
[2022-01-04 14:39] LABS: Anion Gap 14 (12-20); Blood Urea Nitrogen 10 mg/dL (9-16); Carbon Dioxide 25 mmol/L (22-29); Chloride 100 mmol/L (96-108); Creatinine Clr Calc Pharmacy 136.1; Estimated Glomerular Filt Rate > 60; Glucose Random 159 mg/dL (60-115); Potassium 3.5 mmol/L (3.3-5.1); Sodium 135 mmol/L (135-145)
[2022-01-04 14:41] LABS: COVID-19 Test Negative (Negative)
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
[2022-01-04 14:47] LABS: Troponin-I High Sensitivity 3.5 ng/L (<3.5-35.0)
--- NOTE | 2022-01-04 18:09 | PC.NURSE ---
Patient resting comfortablly in bed bhn called and stated bhn en route for eval. no c/o pain was given 1mg ativan for anxiety. will continue to monitor.
[2022-01-04] MEDS: LORazepam 1 MG TABLET 2 MG PO (18:42)
[2022-01-04 18:56] LABS: Appearance Urine CLEAR; Color Urine YELLOW; Glucose Urine UA NEG (NEG); Leukocyte Esterase Urine NEG (NEG); Nitrite Urine NEG (NEG); PH 6.5 (5.0-8.0); UACC Culture Trigger NO; Urine Blood NEG (NEG); Urine Ketones 15 MG/DL (NEG); Urine Protein 1+ MG/DL (NEG-TRACE)
[2022-01-04 19:13] LABS: Amphetamine Screen Urine POSITIVE (Not Detect); Barbiturates, Urine Not Detected (Not Detect); Benzodiazepines Screen Urine Not Detected (Not Detect); Cannabinoid Screen Urine POSITIVE (Not Detect); Cocaine Screen Urine Not Detected (Not Detect); Fentanyl, urine POSITIVE (Not Detect); Opiate Screen Urine POSITIVE (Not Detect); Phencyclidine Screen Urine Not Detected (Not Detect)
[2022-01-04 19:24] LABS: Squamous Epithelial Cell Urine TRACE /LPF
[2022-01-05 01:18] VITALS: BP 122/68; PULSE 84; RESP 18; TEMP 37.2; O2SAT 100
[2022-01-05] MEDS: chlordiazePOXIDE HCl 25 MG CAPSULE 50 MG PO (01:41)
--- NOTE | 2022-01-05 06:32 | PC.NURSE ---
PT appears to be sleeping on safety checks. PT VSS, calm and cooperative. PRN Librium 50mg given at 01:41 for withdrawal symptoms.
[2022-01-05 08:35] VITALS: BP 108/57; PULSE 69; O2SAT 96
[2022-01-05] MEDS: LORazepam 1 MG TABLET PO ×3 (09:20→22:42)
[2022-01-05 16:21] VITALS: BP 145/73; PULSE 63; TEMP 36.8; O2SAT 100
--- NOTE | 2022-01-05 16:48 | PC.NURSE ---
Patient medicated for anxiety at this time resting comfortably in bed awaiting inpatient bed search
[2022-01-05] MEDS: Buprenorphine/Naloxone 4/1 mg FILM 1 FILM SUBLINGUAL (17:27)
--- NOTE | 2022-01-05 17:39 | MHC.RECOVSUP ---
Recovery Support note: This check writer checked in on patient to discuss withdrawal symptoms. Patient appears uncomfortable and reports that he is experiencing alcohol and opiate withdrawal. Discussed Suboxone initiation with patient. Patient cannot recall when he last used however when he arrived to the ED on 01/04 he had reported using the night before. Patient has been on Suboxone in the past and found it helpful and he is open to receiving it today. Discussed case with ED provider. Plan for patient to receive 4/1mg of Suboxone and to be re-evaluated after 1-2 hours. If patient does not experience precipitated withdrawal, additional Suboxone will be provided.
[2022-01-05 22:38] VITALS: BP 153/80; PULSE 98; TEMP 37; O2SAT 98
[2022-01-06] MEDS: LORazepam 1 MG TABLET PO ×6 (05:33→20:59)
[2022-01-06 05:35] VITALS: BP 142/82; PULSE 73; RESP 16; TEMP 37.2; O2SAT 100
--- NOTE | 2022-01-06 06:01 | PC.NURSE ---
Patient slept through the night, received Ativan 1 mg PO at 0553 for anxiety/pending effect, behavior demanding, loud, and disruptive at time. medication compliant, disposition per [facility] s section 12 inpatient bed search, VSS, will continue to monitor.
--- NOTE | 2022-01-06 07:13 | PC.NURSE ---
patient appears to remain asleep at present respirations are even and unlabored patient appears in no distress
[2022-01-06] MEDS: Buprenorphine/Naloxone 4/1 mg FILM 1 FILM SUBLINGUAL ×2 (10:32→14:42)
[2022-01-06] MEDS: Nicotine Polacrilex 2 MG GUM BUCCAL ×5 (11:55→20:10)
[2022-01-06 21:04] VITALS: BP 127/70; PULSE 63; TEMP 37.3; O2SAT 97
[2022-01-07 00:07] VITALS: BP 131/89; PULSE 80; RESP 17; TEMP 36.7; O2SAT 96
[2022-01-07] MEDS: LORazepam 1 MG TABLET PO ×4 (05:06→16:21)
--- NOTE | 2022-01-07 06:19 | PC.NURSE ---
Patient slept through the night, received Ativan 1 mg PO at 0506 for comfort/pending effect, patient exhibit med seeking behavior by constantly asking for ativa, medication compliant, disposition per [facility] s section 12 inpatient bed search, VSS, will continue to monitor
--- NOTE | 2022-01-07 07:12 | PC.NURSE ---
patient appears to remain asleep at present respirations are even and unlabored patient appears in no distress
[2022-01-07] MEDS: Buprenorphine/Naloxone 8/2 mg FILM 1 FILM SUBLINGUAL (08:02)
[2022-01-07] MEDS: Nicotine Polacrilex 2 MG GUM BUCCAL ×6 (08:17→19:19)
[2022-01-07 10:16] LABS: COVID-19 Test Negative (Negative)
[2022-01-07] MEDS: Thiamine HCL 100 MG TABLET 200 MG PO (18:53)
[2022-01-07] MEDS: LORazepam 1 MG TABLET 2 MG PO (18:54)
[2022-01-07] MEDS: Nicotine 21 MG PATCH.TD24 TRANSDERMA (19:19)
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
[2022-01-07] MEDS: Gabapentin 300 MG CAPSULE PO (20:13)
[2022-01-07 20:15] VITALS: BP 126/80; PULSE 94; RESP 19; TEMP 36.6; O2SAT 96
[2022-01-07] MEDS: hydrOXYzine HCL 25 MG TABLET PO (20:19)
[2022-01-08] VITALS (9 sets, daily range): BP systolic 117–143; BP diastolic 53–79; PULSE 60–114; RESP 18–19; TEMP 36.2–36.8; O2SAT 99–100
[2022-01-08] MEDS: Magnesium Hydrox/Alum Hydrox 30 ML ORAL.SUSP PO (00:45)
[2022-01-08] MEDS: LORazepam 1 MG TABLET 2 MG PO ×4 (00:45→16:03)
[2022-01-08] MEDS: Acetaminophen 325 MG TABLET 650 MG PO (05:27)
[2022-01-08] MEDS: Thiamine HCL 100 MG TABLET 200 MG PO (08:52)
[2022-01-08] MEDS: Buprenorphine/Naloxone 8/2 mg FILM 1 FILM SUBLINGUAL (08:52)
[2022-01-08] MEDS: Gabapentin 300 MG CAPSULE PO (08:52)
[2022-01-08 09:15] LABS: Estimated Average Glucose 103 mg/dL; Hemoglobin A1c % 5.2 %
[2022-01-08 09:41] LABS: Cholesterol 188 mg/dL; HDL Cholesterol 43 mg/dL; LDL Cholesterol Calculated 122 mg/dl; Triglycerides 116 mg/dL
[2022-01-08 10:04] LABS: Thyroid Stimulating Hormone 1.44 uIU/mL (0.32-4.0)
[2022-01-08 10:28] LABS: Folate 18.3 ng/mL (> or = 4.0); Vitamin B12 496 pg/mL (200-900)
[2022-01-08] MEDS: Nicotine Polacrilex 2 MG GUM BUCCAL ×2 (10:53→16:48)
[2022-01-08] MEDS: LORazepam 1 MG TABLET PO ×2 (12:03→22:13)
[2022-01-08] MEDS: Nicotine 21 MG PATCH.TD24 TRANSDERMA (12:03)
[2022-01-08] MEDS: Buprenorphine/Naloxone 4/1 mg FILM 1 FILM SUBLINGUAL (12:03)
[2022-01-08] MEDS: cloNIDine HCL 0.1 MG TABLET PO ×2 (12:03→16:02)
[2022-01-08] MEDS: Gabapentin 300 MG CAPSULE 600 MG PO ×2 (16:03→22:03)
[2022-01-08] MEDS: Dicyclomine HCl 10 MG CAPSULE PO ×2 (16:03→22:13)
[2022-01-08] MEDS: Ibuprofen 600 MG TABLET PO ×2 (16:03→22:13)
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
[2022-01-08] MEDS: cloNIDine HCL 0.2 MG TABLET PO (22:03)
[2022-01-08] MEDS: traZODone HCL 50 MG TABLET PO (22:13)
[2022-01-09] VITALS (8 sets, daily range): BP systolic 105–128; BP diastolic 65–91; PULSE 77–110; RESP 16–18; TEMP 36.2–36.9; O2SAT 97–100; BMI 26.3
[2022-01-09] MEDS: cloNIDine HCL 0.1 MG TABLET PO ×4 (06:07→15:59)
[2022-01-09] MEDS: LORazepam 1 MG TABLET 2 MG PO (06:08)
[2022-01-09] MEDS: Ibuprofen 600 MG TABLET PO (06:08)
[2022-01-09] MEDS: Nicotine 21 MG PATCH.TD24 TRANSDERMA (09:41)
[2022-01-09] MEDS: Thiamine HCL 100 MG TABLET 200 MG PO (09:42)
[2022-01-09] MEDS: Gabapentin 300 MG CAPSULE 600 MG PO (09:42)
[2022-01-09] MEDS: Buprenorphine/Naloxone 12/3 mg FILM 1 FILM SUBLINGUAL (09:43)
[2022-01-09] MEDS: Dextroamphetamine/Amphetamine XR 10 MG CAP.ER.24H PO ×2 (12:29→15:54)
[2022-01-09] MEDS: LORazepam 1 MG TABLET PO ×2 (12:30→18:02)
--- NOTE | 2022-01-09 13:56 | P.PNPSI_ITS ---
Subjective Subjective Date of Service: 01/09/22 Reason For Visit: SI Interim History: pt reports he is feeling OK, a little better than yesterday. still needing a lot of ativan. asks for gabapentin to be increased back to 800 TID for nerve pain, his previous outpt dose. he is interested in higher doses as well as the 2400 mg daily does not quite help enough. also agrees to increase clonidine at HS to 0.3 mg to help with sleep - he had a rough night last night. asks for stimulants, reluctantly restarts stimulants at 10 mg adderall XR. pt's statements on his Hx at [facility] are not consistent with [place] medical record. per staff, anxious. denies depression. no SI/HI/AVH. good appetite. gassy. poor sleep. slept all shift days. getting various PRNs. restless. up at 0600. CIWA 14 and COWS 10 at 0600 today. recovery group contacted and pt will be referred there for intake for when he discharges. Mental Status Exam Mental Status Exam Narrative: appropriately dressed and groomed. cooperative. no PMA/PMR. speech nml rate, amount, loudness, latency. thoughts linear and logical. affect constricted, normo-intense, non-labile, consistent with context. mood anxious no SI/HI/AVH expressed. Diagnostics Vital Signs (24Hr): Vital Signs - 24 hr 01/08/22 15:49 01/08/22 21:50 01/09/22 06:11 Temperature 97.2 F 97.7 F Pulse Rate 90 88 85 Respiratory Rate 18 Blood Pressure 117/73 143/53 H 126/79 Pulse Oximetry 99 97 01/09/22 09:03 01/09/22 12:39 Temperature 97.2 F Pulse Rate 92 110 H Respiratory Rate 18 18 Blood Pressure 105/65 128/91 H Pulse Oximetry 98 97 BMI result Body Mass Index 25.8 Labs Results: 01/04/22 14:18 01/04/22 14:17 Labs: Laboratory Results - last 48 hr 01/08/22 01/08/22 01/08/22 08:42 08:42 08:42 Estimat Average Glucose 103 Hemoglobin A1c % 5.2 Triglycerides 116 Cholesterol 188 LDL Cholesterol, Calc 122 HDL Cholesterol 43 Vitamin B12 496 Folate 18.3 TSH 1.44 Imaging Radiology Impressions: ITS Impressions Chest X-Ray 01/04/22 15:39 IMPRESSION: Unremarkable examination. Medications Medications Current Medications Al Hydroxide/Mg Hydroxide (Magnesium Hydrox/Alum Hydrox 30 Ml Oral.Susp) 30 ml PO Q6H PRN PRN Reason: Heartburn/Nausea Last Admin: 01/08/22 00:45 Dose: 30 ml Documented by: Amphetamine/Dextroamphetamine (Dextroamphetamine/Amphetamine Xr 10 Mg Cap.Er.24h) 10 mg PO BID@1000,1500 [facility] Last Admin: 01/09/22 12:29 Dose: 10 mg Documented by: Buprenorphine/Naloxone (Buprenorphine/Naloxone 12/3 Mg Film) 1 film SUBLINGUAL DAILY [facility] Last Admin: 01/09/22 09:43 Dose: 1 film Documented by: Clonidine HCl (Clonidine Hcl 0.1 Mg Tablet) 0.1 mg PO DAILY [facility]; Protocol Last Admin: 01/09/22 09:43 Dose: 0.1 mg Documented by: Clonidine HCl (Clonidine Hcl 0.1 Mg Tablet) 0.1 mg PO DAILY@1500 [facility]; Protocol Last Admin: 01/08/22 16:02 Dose: 0.1 mg Documented by: Clonidine HCl (Clonidine Hcl 0.1 Mg Tablet) 0.1 mg PO Q2H PRN; Protocol PRN Reason: COWS > 8 Last Admin: 01/09/22 12:30 Dose: 0.1 mg Documented by: Clonidine HCl (Clonidine Hcl 0.1 Mg Tablet) 0.3 mg PO BEDTIME [facility]; Protocol Dicyclomine HCl (Dicyclomine Hcl 10 Mg Capsule) 10 mg PO QIDACHS PRN PRN Reason: cramping Last Admin: 01/08/22 22:13 Dose: 10 mg Documented by: Gabapentin (Gabapentin 400 Mg Capsule) 800 mg PO TID [facility] Hydroxyzine HCl (Hydroxyzine Hcl 25 Mg Tablet) 25 mg PO Q6H PRN PRN Reason: Anxiety Last Admin: 01/07/22 20:19 Dose: 25 mg Documented by: Ibuprofen (Ibuprofen 600 Mg Tablet) 600 mg PO Q6H PRN PRN Reason: moderate pain Last Admin: 01/09/22 06:08 Dose: 600 mg Documented by: Lorazepam (Lorazepam 1 Mg Tablet) 1 mg PO Q4H PRN PRN Reason: ciwa AR 8-12 Last Admin: 01/09/22 12:30 Dose: 1 mg Documented by: Lorazepam (Lorazepam 1 Mg Tablet) 2 mg PO Q4H PRN PRN Reason: ciwa ar 13-16 Last Admin: 01/09/22 06:08 Dose: 2 mg Documented by: Magnesium Hydroxide (Milk Of Magnesia 30 Ml Oral.Susp) 30 ml PO DAILY PRN PRN Reason: Constipation Nicotine (Nicotine 21 Mg Patch.Td24) 21 mg TRANSDERMA DAILY [facility] Last Admin: 01/09/22 09:41 Dose: 21 mg Documented by: Nicotine Polacrilex (Nicotine Polacrilex 2 Mg Gum) 2 mg BUCCAL Q1H PRN PRN Reason: smoking cessation/craving Last Admin: 01/08/22 16:48 Dose: 2 mg Documented by: Thiamine HCl (Thiamine Hcl 100 Mg Tablet) 200 mg PO DAILY [facility] Last Admin: 01/09/22 09:42 Dose: 200 mg Documented by: Trazodone HCl (Trazodone Hcl 50 Mg Tablet) 50 mg PO BEDTIME PRN PRN Reason: Insomnia Last Admin: 01/08/22 22:13 Dose: 50 mg Documented by: Allergies Allergies Allergy/AdvReac Type Severity Reaction Status Date / Time fish derived [FISH] Allergy Unknown UNKNOWN - Verified 01/05/22 21:22 NOT ANAPHYLAXIS PER PATIENT Assessment & Plan Assessment & Plan (1) Opioid use disorder: Status: Acute Code(s): F11.90 - Opioid use, unspecified, uncomplicated (2) Alcohol use disorder, moderate, dependence: Status: Acute Code(s): F10.20 - Alcohol dependence, uncomplicated (3) Stimulant use disorder: Status: Acute Code(s): F15.90 - Other stimulant use, unspecified, uncomplicated (4) PTSD (post-traumatic stress disorder): Status: Acute Code(s): F43.10 - Post-traumatic stress disorder, unspecified Plan ativan per [facility] protocol for alcohol use disorder titration of suboxone and comfort meds for opioid withdrawal/use disorder clonidine for anxiety/PTSD. gabapentin for neuropathy. restarted adderall XR at 10 BID 01/09. h/o stimulant misuse and abuse, however[facility]. has had a script for adderall recently from the [place]. I spent minutes with the patient and/or on the patient floor today, greater than?50% of which was spent counseling/coordinating care. Reason for contiued inpatient stay Substantial Risk for: inability to function and rapid decompensation
[2022-01-09] MEDS: Gabapentin 400 MG CAPSULE 800 MG PO ×2 (15:54→20:33)
[2022-01-09] MEDS: Nicotine Polacrilex 2 MG GUM BUCCAL ×2 (16:27→18:33)
[2022-01-09] MEDS: cloNIDine HCL 0.1 MG TABLET 0.3 MG PO (20:33)
[2022-01-09] MEDS: hydrOXYzine HCL 25 MG TABLET PO (20:36)
[2022-01-10] MEDS: LORazepam 1 MG TABLET PO ×4 (00:43→20:04)
[2022-01-10] MEDS: cloNIDine HCL 0.1 MG TABLET PO ×4 (01:20→19:03)
[2022-01-10] MEDS: traZODone HCL 50 MG TABLET PO (01:20)
[2022-01-10] MEDS: hydrOXYzine HCL 25 MG TABLET PO (01:20)
--- NOTE | 2022-01-10 07:03 | PC.NURSE ---
At approximately 2345, Pt in 326-2 came to the Nurse's station stating my roommate fell in the bathroom . Upon this writers arrival, pt was on the bathroom on the floor on his left side, pt stated he went to urinate and did not know what happened. Pt was Ox4, Seemed to hallucinate at times. VS were 98.7T, 100%, 109HR, 108/61BP,18RR and a blood glucose of 139. Pt was oriented to person, place and time. Stated that his left hip was hurting and his left side of head. Upon assessment of face, blood was on the left side of nose and left mu-ism area. Rapid Response was called. Pt was taken to have Head CT and cervical spine CT scan which came back negative as well as an xray of the left hip that also came back negative. Doctor and Psychiatrist are aware of event. Upon return from xray, Orthostats were done @ 0130 and were as follows; lying - 89/52, HR94 / sitting - 84/53, HR116 / Standing - unable to obtain due to pt increasing agitation. Labs were drawn and pt was ordered 2000mls of LR to be given over 2 hours. Pt IV access was removed per doctor. During this process of removing, he pushed this scenario writer away and kneeled at the foot of the bed and urinated a SIGNIFICANT amount onto the floor. ES called to clean. Monitored for rest of evening resting comfortably, was placed on 1:1 d/t IV and unsteady gate.
[2022-01-10 08:00] VITALS: PULSE 84
[2022-01-10] MEDS: Thiamine HCL 100 MG TABLET 200 MG PO (08:33)
[2022-01-10] MEDS: Nicotine 21 MG PATCH.TD24 TRANSDERMA ×2 (08:34→18:15)
[2022-01-10] MEDS: Buprenorphine/Naloxone 12/3 mg FILM 1 FILM SUBLINGUAL (08:34)
[2022-01-10] MEDS: Dextroamphetamine/Amphetamine XR 10 MG CAP.ER.24H PO ×2 (08:34→14:37)
[2022-01-10] MEDS: Gabapentin 400 MG CAPSULE 800 MG PO (08:34)
[2022-01-10] MEDS: Nicotine Polacrilex 2 MG GUM BUCCAL ×3 (10:21→19:04)
--- NOTE | 2022-01-10 12:26 | HO.PSYCHPN ---
Subjective Subjective Date of Service: 01/10/22 Reason For Visit: SI Subjective Notes: Conditional Voluntary Interim History: Pt siting in TV area doing puzzle he states has been working on for about two days. Pt reports he feels safe here. He denies SI/HI. he reports he wants to return to residential substance use tx through [place], otherwise not interested in other programs. Pt reports feeling anxious, asks for increased in gabapentin. This account underwriter agrees to increase in gabapentin. He also asks for increase in adderall which this account underwriter explained to account underwriter will leave up to primary treatment team. Per nursing, pt visible in unit, irritable at times. No behavioral concerns. Medication Compliance: Yes Side effects from medications: No Review of Systems Review of Systems Constitutional : No Fever, No Chills ENT/Mouth : No Ear Pain, No Nasal Congestion, No sore throat Eyes: No Eye Pain, No Swelling, No Redness Cardiovascular : + Chest Pain, + SOB Respiratory : No Cough, No Sputum, No Dyspnea Gastrointestinal : No Nausea, No Vomiting, No Diarrhea, No Hematochezia, No Melena Genitourinary : No Dysuria, No Urinary Frequency, No Hematuria Musculoskeletal : No Myalgias Skin : No Skin Lesions, No rash Neuro : No Weakness, No Numbness, No Paresthesias, No Dizziness, No Headache Psych : positive Anxiety, positive Depression, positive SI/HI All other systems reviewed and are negative Yes all other systems are reviewed and are negative Mental Status Exam Mental Status Exam Narrative: appropriately dressed and groomed. cooperative. no PMA/PMR. speech nml rate, amount, loudness, latency. thoughts linear and logical. affect constricted, normo-intense, non-labile, consistent with context. mood anxious no SI/HI/AVH expressed. Diagnostics Vital Signs (24Hr): Vital Signs - 24 hr 01/09/22 20:32 01/10/22 14:30 Temperature 98.4 F Pulse Rate 97 100 Blood Pressure 118/73 130/78 Pulse Oximetry 97 99 BMI result Body Mass Index 26.3 Labs Results: 01/04/22 14:18 01/04/22 14:17 Imaging Radiology Impressions: ITS Impressions Chest X-Ray 01/04/22 15:39 IMPRESSION: Unremarkable examination. Medications Medications Current Medications Al Hydroxide/Mg Hydroxide (Magnesium Hydrox/Alum Hydrox 30 Ml Oral.Susp) 30 ml PO Q6H PRN PRN Reason: Heartburn/Nausea Last Admin: 01/08/22 00:45 Dose: 30 ml Documented by: Amphetamine/Dextroamphetamine (Dextroamphetamine/Amphetamine Xr 10 Mg Cap.Er.24h) 10 mg PO BID@1000,1500 [facility] Last Admin: 01/10/22 14:37 Dose: 10 mg Documented by: Buprenorphine/Naloxone (Buprenorphine/Naloxone 12/3 Mg Film) 1 film SUBLINGUAL DAILY [facility] Last Admin: 01/10/22 08:34 Dose: 1 film Documented by: Clonidine HCl (Clonidine Hcl 0.1 Mg Tablet) 0.1 mg PO DAILY [facility]; Protocol Last Admin: 01/10/22 08:36 Dose: 0.1 mg Documented by: Clonidine HCl (Clonidine Hcl 0.1 Mg Tablet) 0.1 mg PO DAILY@1500 [facility]; Protocol Last Admin: 01/10/22 14:36 Dose: 0.1 mg Documented by: Clonidine HCl (Clonidine Hcl 0.1 Mg Tablet) 0.1 mg PO Q2H PRN; Protocol PRN Reason: COWS > 8 Last Admin: 01/10/22 01:20 Dose: 0.1 mg Documented by: Clonidine HCl (Clonidine Hcl 0.1 Mg Tablet) 0.3 mg PO BEDTIME [facility]; Protocol Last Admin: 01/09/22 20:33 Dose: 0.3 mg Documented by: Dicyclomine HCl (Dicyclomine Hcl 10 Mg Capsule) 10 mg PO QIDACHS PRN PRN Reason: cramping Last Admin: 01/08/22 22:13 Dose: 10 mg Documented by: Gabapentin (Gabapentin 400 Mg Capsule) 1,200 mg PO TID [facility] Last Admin: 01/10/22 14:35 Dose: 1,200 mg Documented by: Hydroxyzine HCl (Hydroxyzine Hcl 25 Mg Tablet) 25 mg PO Q6H PRN PRN Reason: Anxiety Last Admin: 01/10/22 01:20 Dose: 25 mg Documented by: Ibuprofen (Ibuprofen 600 Mg Tablet) 600 mg PO Q6H PRN PRN Reason: moderate pain Last Admin: 01/09/22 06:08 Dose: 600 mg Documented by: Lorazepam (Lorazepam 1 Mg Tablet) 1 mg PO Q4H PRN PRN Reason: ciwa AR 8-12 Last Admin: 01/10/22 14:36 Dose: 1 mg Documented by: Lorazepam (Lorazepam 1 Mg Tablet) 2 mg PO Q4H PRN PRN Reason: [facility] ar 13-16 Last Admin: 01/09/22 06:08 Dose: 2 mg Documented by: Magnesium Hydroxide (Milk Of Magnesia 30 Ml Oral.Susp) 30 ml PO DAILY PRN PRN Reason: Constipation Nicotine (Nicotine 21 Mg Patch.Td24) 21 mg TRANSDERMA DAILY [facility] Last Admin: 01/10/22 08:34 Dose: 21 mg Documented by: Nicotine Polacrilex (Nicotine Polacrilex 2 Mg Gum) 2 mg BUCCAL Q1H PRN PRN Reason: smoking cessation/craving Last Admin: 01/10/22 14:36 Dose: 2 mg Documented by: Thiamine HCl (Thiamine Hcl 100 Mg Tablet) 200 mg PO DAILY [facility] Last Admin: 01/10/22 08:33 Dose: 200 mg Documented by: Trazodone HCl (Trazodone Hcl 50 Mg Tablet) 50 mg PO BEDTIME PRN PRN Reason: Insomnia Last Admin: 01/10/22 01:20 Dose: 50 mg Documented by: Allergies Allergies Allergy/AdvReac Type Severity Reaction Status Date / Time fish derived [FISH] Allergy Unknown UNKNOWN - Verified 01/05/22 21:22 NOT ANAPHYLAXIS PER PATIENT Assessment & Plan Assessment & Plan (1) Opioid use disorder: Status: Acute Code(s): F11.90 - Opioid use, unspecified, uncomplicated (2) Alcohol use disorder, moderate, dependence: Status: Acute Code(s): F10.20 - Alcohol dependence, uncomplicated (3) Stimulant use disorder: Status: Acute Code(s): F15.90 - Other stimulant use, unspecified, uncomplicated (4) PTSD (post-traumatic stress disorder): Status: Acute Code(s): F43.10 - Post-traumatic stress disorder, unspecified Plan ativan per [facility] protocol for alcohol use disorder titration of suboxone and comfort meds for opioid withdrawal/use disorder clonidine for anxiety/PTSD. gabapentin for neuropathy- increase to 1200mg po TID on 01/10 restarted adderall XR at 10 BID 01/09. h/o stimulant misuse and abuse, however[facility]. [facility] I spent minutes with the patient and/or on the patient floor today, greater than?50% of which was spent counseling/coordinating care. Reason for contiued inpatient stay Substantial Risk for: harm to self
[2022-01-10 14:30] VITALS: BP 130/78; PULSE 100; O2SAT 99
[2022-01-10] MEDS: Gabapentin 400 MG CAPSULE 1200 MG PO ×2 (14:35→20:04)
[2022-01-10 16:00] VITALS: PULSE 96
[2022-01-10 19:01] VITALS: BP 118/73; PULSE 96; RESP 18; O2SAT 100
--- NOTE | 2022-01-10 19:10 | PC.NURSE ---
Patient reporting i feel sick, I think I need more Suboxone, I have chills. Observed to be eating a full meal, offered [id number] and hydroxyzine. Patient stating: 'where's the Ativan, I need Ativan.' Explained to patient that his symptoms appear to be related to opiate withdrawal. Pt increasingly agitated. Provider texted to notify re: patient request and agitation.
[2022-01-10 19:59] VITALS: BP 124/74; PULSE 85; RESP 18; TEMP 36.9; O2SAT 100
[2022-01-10] MEDS: cloNIDine HCL 0.1 MG TABLET 0.3 MG PO (20:04)
[2022-01-10 22:41] VITALS: PULSE 85
[2022-01-11] MEDS: LORazepam 1 MG TABLET PO ×4 (01:54→21:22)
[2022-01-11 06:00] VITALS: BP 109/58; PULSE 77; RESP 18; TEMP 36.6; O2SAT 96
[2022-01-11] MEDS: Nicotine Polacrilex 2 MG GUM BUCCAL (07:41)
[2022-01-11 08:00] VITALS: PULSE 77
--- NOTE | 2022-01-11 08:01 | P.PNPSI_ITS ---
Subjective Subjective Date of Service: 01/11/22 Reason For Visit: SI Subjective Notes: Conditional Voluntary Medical Problems Affecting Mental Status: No Interim History: Patient was seen and discussed in rounds today. Records and plans reviewed. He continues to be very uncomfortable with his withdrawal symptoms and the current dose of Suboxone 12 mg seems inadequate so I will add another 8 mg in the afternoon. He has been on as high as 24 mg in the past. He continues to score low on the CIWA protocol. The opiate withdrawal protocol is minimally helpful. He is irritable and not sleeping well. He continues to endorse anxiety and depression. No active suicidal ideations. Medication Compliance: Yes Side effects from medications: No Review of Systems Review of Systems Constitutional : No Fever, No Chills ENT/Mouth : No Ear Pain, No Nasal Congestion, No sore throat Eyes: No Eye Pain, No Swelling, No Redness Cardiovascular : + Chest Pain, + SOB Respiratory : No Cough, No Sputum, No Dyspnea Gastrointestinal : No Nausea, No Vomiting, No Diarrhea, No Hematochezia, No Melena Genitourinary : No Dysuria, No Urinary Frequency, No Hematuria Musculoskeletal : No Myalgias Skin : No Skin Lesions, No rash Neuro : No Weakness, No Numbness, No Paresthesias, No Dizziness, No Headache Psych : positive Anxiety, positive Depression, positive SI/HI All other systems reviewed and are negative Yes all other systems are reviewed and are negative Mental Status Exam Mental Status Exam Narrative: In today's visit he is alert, oriented and pleasant. Normal speech. Good eye contact. Affect is appropriate and varied. Some anxiety and restlessness present. No active SI. Cognitively intact. Judgment is intact Diagnostics Vital Signs (24Hr): Vital Signs - 24 hr 01/10/22 14:30 01/10/22 19:01 01/10/22 19:59 Temperature 98.4 F Pulse Rate 100 96 85 Respiratory Rate 18 18 Blood Pressure 130/78 118/73 124/74 Pulse Oximetry 99 100 100 BMI result Body Mass Index 26.3 Labs Results: 01/04/22 14:18 01/04/22 14:17 Imaging Radiology Impressions: ITS Impressions Chest X-Ray 01/04/22 15:39 IMPRESSION: Unremarkable examination. Medications Medications Current Medications Al Hydroxide/Mg Hydroxide (Magnesium Hydrox/Alum Hydrox 30 Ml Oral.Susp) 30 ml PO Q6H PRN PRN Reason: Heartburn/Nausea Last Admin: 01/08/22 00:45 Dose: 30 ml Documented by: Amphetamine/Dextroamphetamine (Dextroamphetamine/Amphetamine Xr 10 Mg Cap.Er.24h) 10 mg PO BID@1000,1500 [facility] Last Admin: 01/10/22 14:37 Dose: 10 mg Documented by: Buprenorphine/Naloxone (Buprenorphine/Naloxone 8/2 Mg Film) 1 film SUBLINGUAL DAILY [facility] Clonidine HCl (Clonidine Hcl 0.1 Mg Tablet) 0.1 mg PO DAILY [facility]; Protocol Last Admin: 01/10/22 08:36 Dose: 0.1 mg Documented by: Clonidine HCl (Clonidine Hcl 0.1 Mg Tablet) 0.1 mg PO DAILY@1500 [place]; Protocol Last Admin: 01/10/22 14:36 Dose: 0.1 mg Documented by: Clonidine HCl (Clonidine Hcl 0.1 Mg Tablet) 0.1 mg PO Q2H PRN; Protocol PRN Reason: COWS > 8 Last Admin: 01/10/22 19:03 Dose: 0.1 mg Documented by: Clonidine HCl (Clonidine Hcl 0.1 Mg Tablet) 0.3 mg PO BEDTIME [place]; Protocol Last Admin: 01/10/22 20:04 Dose: 0.3 mg Documented by: Dicyclomine HCl (Dicyclomine Hcl 10 Mg Capsule) 10 mg PO QIDACHS PRN PRN Reason: cramping Last Admin: 01/08/22 22:13 Dose: 10 mg Documented by: Gabapentin (Gabapentin 400 Mg Capsule) 1,200 mg PO TID [place] Last Admin: 01/10/22 20:04 Dose: 1,200 mg Documented by: Hydroxyzine HCl (Hydroxyzine Hcl 25 Mg Tablet) 25 mg PO Q6H PRN PRN Reason: Anxiety Last Admin: 01/10/22 01:20 Dose: 25 mg Documented by: Ibuprofen (Ibuprofen 600 Mg Tablet) 600 mg PO Q6H PRN PRN Reason: moderate pain Last Admin: 01/09/22 06:08 Dose: 600 mg Documented by: Lorazepam (Lorazepam 1 Mg Tablet) 1 mg PO Q4H PRN PRN Reason: breanne RUSSO 8-12 Last Admin: 01/11/22 07:03 Dose: 1 mg Documented by: Lorazepam (Lorazepam 1 Mg Tablet) 2 mg PO Q4H PRN PRN Reason: ciwa ar 13-16 Last Admin: 01/09/22 06:08 Dose: 2 mg Documented by: Magnesium Hydroxide (Milk Of Magnesia 30 Ml Oral.Susp) 30 ml PO DAILY PRN PRN Reason: Constipation Nicotine (Nicotine 21 Mg Patch.Td24) 21 mg TRANSDERMA DAILY [facility] Last Admin: 01/10/22 08:34 Dose: 21 mg Documented by: Nicotine Polacrilex (Nicotine Polacrilex 2 Mg Gum) 2 mg BUCCAL Q1H PRN PRN Reason: smoking cessation/craving Last Admin: 01/11/22 07:41 Dose: 2 mg Documented by: Thiamine HCl (Thiamine Hcl 100 Mg Tablet) 200 mg PO DAILY [facility] Last Admin: 01/10/22 08:33 Dose: 200 mg Documented by: Trazodone HCl (Trazodone Hcl 50 Mg Tablet) 50 mg PO BEDTIME PRN PRN Reason: Insomnia Last Admin: 01/10/22 01:20 Dose: 50 mg Documented by: Allergies Allergies Allergy/AdvReac Type Severity Reaction Status Date / Time fish derived [FISH] Allergy Unknown UNKNOWN - Verified 01/05/22 21:22 NOT ANAPHYLAXIS PER PATIENT Assessment & Plan Assessment & Plan (1) Opioid use disorder: Status: Acute Code(s): F11.90 - Opioid use, unspecified, uncomplicated (2) Alcohol use disorder, moderate, dependence: Status: Acute Code(s): F10.20 - Alcohol dependence, uncomplicated (3) Stimulant use disorder: Status: Acute Code(s): F15.90 - Other stimulant use, unspecified, uncomplicated (4) PTSD (post-traumatic stress disorder): Status: Acute Code(s): F43.10 - Post-traumatic stress disorder, unspecified Plan ativan per [facility] protocol for alcohol use disorder titration of suboxone and comfort meds for opioid withdrawal/use disorder clonidine for anxiety/PTSD. gabapentin for neuropathy- increase to 1200mg po TID on 01/10 restarted adderall XR at 10 BID 01/09. h/o stimulant misuse and abuse, however, per [facility] records. has had a script for [facility]all recently from the [facility]. 01/11/2022: Continue current regimen and plans with increase of Suboxone by 8 mg. I spent minutes with the patient and/or on the patient floor today, greater than?50% of which was spent counseling/coordinating care. Patient educated on: substance abuse and therapeutic strategies Reason for contiued inpatient stay Substantial Risk for: other
[2022-01-11] MEDS: Buprenorphine/Naloxone 12/3 mg FILM 1 FILM SUBLINGUAL (08:06)
[2022-01-11] MEDS: Gabapentin 400 MG CAPSULE 1200 MG PO ×3 (08:06→21:21)
[2022-01-11] MEDS: Thiamine HCL 100 MG TABLET 200 MG PO (08:07)
[2022-01-11] MEDS: cloNIDine HCL 0.1 MG TABLET PO ×3 (08:07→14:50)
[2022-01-11] MEDS: Dextroamphetamine/Amphetamine XR 10 MG CAP.ER.24H PO ×2 (08:09→14:50)
[2022-01-11] MEDS: Nicotine Polacrilex 2 MG GUM 4 MG BUCCAL ×6 (10:01→22:48)
[2022-01-11 13:14] VITALS: PULSE 89
[2022-01-11] MEDS: Buprenorphine/Naloxone 8/2 mg FILM 1 FILM SUBLINGUAL (14:50)
[2022-01-11 16:00] VITALS: PULSE 92
[2022-01-11 18:00] VITALS: BP 112/66; PULSE 93; RESP 16; TEMP 36.8; O2SAT 98
[2022-01-11] MEDS: cloNIDine HCL 0.1 MG TABLET 0.3 MG PO (21:21)
[2022-01-11] MEDS: hydrOXYzine HCL 25 MG TABLET PO (22:47)
[2022-01-12] MEDS: Ibuprofen 600 MG TABLET PO ×2 (04:39→11:39)
[2022-01-12] MEDS: LORazepam 1 MG TABLET PO ×4 (04:39→18:53)
[2022-01-12 04:42] VITALS: BP 117/82; PULSE 95
[2022-01-12 08:25] VITALS: BP 117/76; PULSE 98; RESP 16; TEMP 36.4; O2SAT 98
--- NOTE | 2022-01-12 08:26 | HO.PSYCHPN ---
Subjective Subjective Date of Service: 01/12/22 Reason For Visit: SI Subjective Notes: Conditional Voluntary Medical Problems Affecting Mental Status: No Interim History: Patient was seen and reviewed in rounds today. Records were reviewed. He states that he is frustrated that his Adderall was not putting correctly. He had been on ?10 mg 4 times a day? and he is on a b.i.d. dosing. I will increase it to t.i.d. for now and he will review this with Dr. Caballero tomorrow. He has an irritable edge. Eating and sleeping adequately. Continues to score on his detox protocol scale. No other complaints. No changes were made other than the Adderall. Medication Compliance: Yes Side effects from medications: No Review of Systems Review of Systems Constitutional : No Fever, No Chills ENT/Mouth : No Ear Pain, No Nasal Congestion, No sore throat Eyes: No Eye Pain, No Swelling, No Redness Cardiovascular : + Chest Pain, + SOB Respiratory : No Cough, No Sputum, No Dyspnea Gastrointestinal : No Nausea, No Vomiting, No Diarrhea, No Hematochezia, No Melena Genitourinary : No Dysuria, No Urinary Frequency, No Hematuria Musculoskeletal : No Myalgias Skin : No Skin Lesions, No rash Neuro : No Weakness, No Numbness, No Paresthesias, No Dizziness, No Headache Psych : positive Anxiety, positive Depression, positive SI/HI All other systems reviewed and are negative Yes all other systems are reviewed and are negative Mental Status Exam Mental Status Exam Narrative: In today's visit he is alert, oriented and pleasant. Normal speech. Good eye contact. Affect is appropriate and irritable. Some anxiety and restlessness present. No active SI. Cognitively intact. Judgment is intact Diagnostics Vital Signs (24Hr): Vital Signs - 24 hr 01/11/22 18:00 01/12/22 04:42 Temperature 98.3 F Pulse Rate 93 95 Respiratory Rate 16 Blood Pressure 112/66 117/82 Pulse Oximetry 98 BMI result Body Mass Index 26.3 Labs Results: 01/04/22 14:18 01/04/22 14:17 Imaging Radiology Impressions: ITS Impressions Chest X-Ray 01/04/22 15:39 IMPRESSION: Unremarkable examination. Medications Medications Current Medications Al Hydroxide/Mg Hydroxide (Magnesium Hydrox/Alum Hydrox 30 Ml Oral.Susp) 30 ml PO Q6H PRN PRN Reason: Heartburn/Nausea Last Admin: 01/08/22 00:45 Dose: 30 ml Documented by: Amphetamine/Dextroamphetamine (Dextroamphetamine/Amphetamine Xr 10 Mg Cap.Er.24h) 10 mg PO BID@1000,1500 [place] Last Admin: 01/11/22 14:50 Dose: 10 mg Documented by: Buprenorphine/Naloxone (Buprenorphine/Naloxone 8/2 Mg Film) 1 film SUBLINGUAL DAILY@1500 [place] Last Admin: 01/11/22 14:50 Dose: 1 film Documented by: Buprenorphine/Naloxone (Buprenorphine/Naloxone 12/3 Mg Film) 1 film SUBLINGUAL DAILY [facility] Last Admin: 01/11/22 08:06 Dose: 1 film Documented by: Clonidine HCl (Clonidine Hcl 0.1 Mg Tablet) 0.1 mg PO DAILY [facility]; Protocol Last Admin: 01/11/22 08:07 Dose: 0.1 mg Documented by: Clonidine HCl (Clonidine Hcl 0.1 Mg Tablet) 0.1 mg PO DAILY@1500 [place]; Protocol Last Admin: 01/11/22 14:50 Dose: 0.1 mg Documented by: Clonidine HCl (Clonidine Hcl 0.1 Mg Tablet) 0.1 mg PO Q2H PRN; Protocol PRN Reason: COWS > 8 Last Admin: 01/11/22 13:26 Dose: 0.1 mg Documented by: Clonidine HCl (Clonidine Hcl 0.1 Mg Tablet) 0.3 mg PO BEDTIME [facility]; Protocol Last Admin: 01/11/22 21:21 Dose: 0.3 mg Documented by: Dicyclomine HCl (Dicyclomine Hcl 10 Mg Capsule) 10 mg PO QIDACHS PRN PRN Reason: cramping Last Admin: 01/08/22 22:13 Dose: 10 mg Documented by: Gabapentin (Gabapentin 400 Mg Capsule) 1,200 mg PO TID [facility] Last Admin: 01/11/22 21:21 Dose: 1,200 mg Documented by: Hydroxyzine HCl (Hydroxyzine Hcl 25 Mg Tablet) 25 mg PO Q6H PRN PRN Reason: Anxiety Last Admin: 01/11/22 22:47 Dose: 25 mg Documented by: Ibuprofen (Ibuprofen 600 Mg Tablet) 600 mg PO Q6H PRN PRN Reason: moderate pain Last Admin: 01/12/22 04:39 Dose: 600 mg Documented by: Lorazepam (Lorazepam 1 Mg Tablet) 1 mg PO Q4H PRN PRN Reason: [facility] AR 8-12 Last Admin: 01/12/22 04:39 Dose: 1 mg Documented by: Lorazepam (Lorazepam 1 Mg Tablet) 2 mg PO Q4H PRN PRN Reason: [facility] ar 13-16 Last Admin: 01/09/22 06:08 Dose: 2 mg Documented by: Magnesium Hydroxide (Milk Of Magnesia 30 Ml Oral.Susp) 30 ml PO DAILY PRN PRN Reason: Constipation Nicotine (Nicotine 21 Mg Patch.Td24) 21 mg TRANSDERMA DAILY [facility] Last Admin: 01/11/22 10:56 Dose: Not Given Documented by: Nicotine Polacrilex (Nicotine Polacrilex 2 Mg Gum) 4 mg BUCCAL Q1H PRN PRN Reason: smoking cessation/craving Last Admin: 01/11/22 22:48 Dose: 4 mg Documented by: Thiamine HCl (Thiamine Hcl 100 Mg Tablet) 200 mg PO DAILY [facility] Last Admin: 01/11/22 08:07 Dose: 200 mg Documented by: Trazodone HCl (Trazodone Hcl 50 Mg Tablet) 50 mg PO BEDTIME PRN PRN Reason: Insomnia Last Admin: 01/10/22 01:20 Dose: 50 mg Documented by: Allergies Allergies Allergy/AdvReac Type Severity Reaction Status Date / Time fish derived [FISH] Allergy Unknown UNKNOWN - Verified 01/05/22 21:22 NOT ANAPHYLAXIS PER PATIENT Assessment & Plan Assessment & Plan (1) Opioid use disorder: Status: Acute Code(s): F11.90 - Opioid use, unspecified, uncomplicated (2) Alcohol use disorder, moderate, dependence: Status: Acute Code(s): F10.20 - Alcohol dependence, uncomplicated (3) Stimulant use disorder: Status: Acute Code(s): F15.90 - Other stimulant use, unspecified, uncomplicated (4) PTSD (post-traumatic stress disorder): Status: Acute Code(s): F43.10 - Post-traumatic stress disorder, unspecified Plan ativan per [facility] protocol for alcohol use disorder titration of suboxone and comfort meds for opioid withdrawal/use disorder clonidine for anxiety/PTSD. gabapentin for neuropathy- increase to 1200mg po TID on 01/10 restarted adderall XR at 10 BID 01/09. h/o stimulant misuse and abuse, however[facility] 01/11/2022: Continue current regimen and plans with increase of Suboxone by 8 mg. 01/12: Continue current regimen and plans. Increase Adderall to 10 mg t.i.d. I spent minutes with the patient and/or on the patient floor today, greater than?50% of which was spent counseling/coordinating care. Patient educated on: medication risk/benefits Reason for contiued inpatient stay Substantial Risk for: other
[2022-01-12] MEDS: Nicotine 21 MG PATCH.TD24 TRANSDERMA (08:34)
[2022-01-12] MEDS: Buprenorphine/Naloxone 12/3 mg FILM 1 FILM SUBLINGUAL (08:35)
[2022-01-12] MEDS: Gabapentin 400 MG CAPSULE 1200 MG PO ×3 (08:35→20:03)
[2022-01-12] MEDS: Thiamine HCL 100 MG TABLET 200 MG PO (08:35)
[2022-01-12] MEDS: cloNIDine HCL 0.1 MG TABLET PO ×3 (08:36→18:56)
[2022-01-12] MEDS: Dextroamphetamine/Amphetamine XR 10 MG CAP.ER.24H PO ×3 (08:40→15:05)
[2022-01-12] MEDS: Nicotine Polacrilex 2 MG GUM 4 MG BUCCAL ×3 (11:42→21:32)
[2022-01-12 14:55] VITALS: BP 123/83; PULSE 87
[2022-01-12] MEDS: Buprenorphine/Naloxone 8/2 mg FILM 1 FILM SUBLINGUAL (15:02)
[2022-01-12 21:28] VITALS: BP 120/70; PULSE 88; RESP 16; TEMP 36.6; O2SAT 97
[2022-01-12] MEDS: cloNIDine HCL 0.1 MG TABLET 0.3 MG PO (21:32)
[2022-01-12] MEDS: hydrOXYzine HCL 25 MG TABLET PO (21:32)
[2022-01-13] MEDS: Dicyclomine HCl 10 MG CAPSULE PO (01:03)
[2022-01-13] MEDS: LORazepam 1 MG TABLET PO (01:03)
[2022-01-13] MEDS: Ibuprofen 600 MG TABLET PO (01:04)
[2022-01-13] MEDS: Nicotine Polacrilex 2 MG GUM 4 MG BUCCAL (07:11)
[2022-01-13 08:00] VITALS: PULSE 96
[2022-01-13] MEDS: Gabapentin 400 MG CAPSULE 1200 MG PO (08:27)
[2022-01-13] MEDS: cloNIDine HCL 0.1 MG TABLET PO (08:28)
[2022-01-13] MEDS: Buprenorphine/Naloxone 12/3 mg FILM 1 FILM SUBLINGUAL (08:28)
[2022-01-13] MEDS: Thiamine HCL 100 MG TABLET 200 MG PO (08:28)
[2022-01-13] MEDS: Nicotine 21 MG PATCH.TD24 TRANSDERMA (08:33)
[2022-01-13] MEDS: Dextroamphetamine/Amphetamine XR 10 MG CAP.ER.24H PO ×2 (08:33→11:53)
--- NOTE | 2022-01-13 09:08 | PC.NURSE ---
Patient reporting nausea, diarrhea, tremors- offered imodium for diarrhea but declined. Patient visible on unit, affect even, completing jigsaw puzzle; appears to be tolerating PO fluids w/o concern. Patient states 'I can be discharged once I'm on the right dose of my adderall, when asked, patient reports he is hopeful to be resumed on 30 mg QD.
[2022-01-13 09:12] VITALS: BP 105/50; PULSE 96; RESP 12; TEMP 36.7; O2SAT 100
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
== END 2022-01-13 12:47 | disposition home or self-care (01) | DRG 755 ==
LOC: HO.ED 01-07 15:42 → HO.PADLT16 01-07 18:05
PROVIDERS: Physician Assistant; Social Worker; Admitting Provider Psychiatry & Neurology Psychiatry; Emergency Provider Emergency Medicine; Visit Provider Psychiatry & Neurology Psychiatry
DX: F43.12 Post-traumatic stress disorder, chronic (principal); R45.851 Suicidal ideations; F10.20 Alcohol dependence, uncomplicated; F17.210 Nicotine dependence, cigarettes, uncomplicated; F15.10 Other stimulant abuse, uncomplicated; Z20.822 Contact with and (suspected) exposure to COVID-19; Z59.02 Unsheltered homelessness; Z71.6 Tobacco abuse counseling; Z79.899 Other long term (current) drug therapy
CPT/HCPCS: 36415; 71045; 80048; 80061; 80307; 81001; 82077; 82607; 82746; 83036; 84443; 84484; 85025; 85379; 87635; 93005; 99285

== ENCOUNTER 2022-02-04 00:50 | Inpatient (IN) | payer OTHER, SELFPAY ==
[2022-02-04] VITALS (7 sets, daily range): BP systolic 113–145; BP diastolic 54–93; PULSE 82–104; RESP 18–20; TEMP 36.7–37.2; O2SAT 96–99; BMI 25.1
--- NOTE | 2022-02-04 | ECG_ITS ---
Test Reason : MED CLEARANCE Blood Pressure : / mmHG Vent. Rate : 081 BPM Atrial Rate : 081 BPM P-R Int : 148 ms QRS Dur : 092 ms QT Int : 426 ms P-R-T Axes : 052 043 022 degrees QTc Int : 494 ms Normal sinus rhythm Prolonged QT Abnormal ECG When compared with ECG of 04-JAN-2022 14:00, No significant change was found Referred By: Armando Dougherty Electronically Signed By:Elgin Kingsley
--- NOTE | 2022-02-04 01:12 | ED.PSYCH ---
HPI - Psych General Chief Complaint: Psychiatric Symptoms Stated Complaint: SI Time Seen by Provider: 02/04/22 01:09 Source: patient Mode of arrival: ambulatory Limitations: no limitations History of Present Illness HPI Narrative: Patient's history of PTSD/depression alcohol use and opiate use been feeling more depressed lately drinking heavy for depression also had suicidal thoughts with no specific plans but very close to it. No hallucination or delusions patient just discharged from inpatient psych on 01/13 Related Data Home Medications Medication Instructions Recorded Confirmed buprenorphine 12 mg-naloxone 3 mg 1 strip SUBLINGUAL DAILY 02/04/22 02/04/22 sublingual film (Suboxone) buprenorphine 8 mg-naloxone 2 mg 1 strip SUBLINGUAL DAILY@1700 02/04/22 02/04/22 sublingual film (Suboxone) clonidine HCl 0.1 mg tablet 1 tab PO BID 02/04/22 02/04/22 gabapentin 400 mg capsule 3 cap PO TID 02/04/22 02/04/22 nicotine (polacrilex) 2 mg gum 2 mg PO Q1H PRN 02/04/22 02/04/22 nicotine 21 mg/24 hr daily 1 patch TOPICAL DAILY 02/04/22 02/04/22 transdermal patch thiamine HCl (vitamin B1) 100 mg 2 tab PO DAILY 02/04/22 02/04/22 tablet Allergies Allergy/AdvReac Type Severity Reaction Status Date / Time fish derived [FISH] Allergy Unknown UNKNOWN - Verified 01/05/22 21:22 NOT ANAPHYLAXIS PER PATIENT Review of Systems Review of Systems: Yes all other systems are reviewed and are negative PMFSH Past Medical History Medical History Hep C w/o coma, chronic Stimulant use disorder Social History Social History Household Members: None Housing: Homeless Do you presently have visiting nurse or other home services: No Alcohol intake: current Alcohol intake frequency: 3 or more drinks per day Alcohol type: hard liquor Patient Tobacco Use Status: Current everyday Tobacco user Tobacco use type: Cigarette Cigarette Packs Per Day: 2 Cigarettes Per Day: 40.0 e-Cigarette/Vaping Use: Currently Using Second Hand Smoke Exposure: Yes Substance Use Type: Amphetamines, Crack/Cocaine and Heroin Advance Directives: No Advance Directives Information Provided: Yes service: Yes (pt served in the .) Sexual orientation: Don't Know Physical Exam Vital Signs: Vital Signs: Last Vital Signs Pulse 97 02/04/22 00:53 Resp 18 02/04/22 00:53 BP 145/60 H 02/04/22 00:53 Pulse Ox 97 02/04/22 00:53 BMI result Body Mass Index 25.1 Appearance: Alert. Oriented X3. No acute distress. Eyes: PERRLA, No Nystagmus ENT: Pharynx normal. Oral Mucosa moist Neck: Normal inspection. Neck supple. CVS: Normal heart rate and rhythm. Pulses normal. Respiratory: No respiratory distress. Equal air entry bilateral, no wheezing/rales/rhonchi Abdomen: Soft and nontender. Bowel sounds are present, no mass palpable, no CVA tenderness Skin: Skin warm and dry. Normal skin color. Normal skin turgor. Extremities: No lower extremity edema. No calf tenderness IVDA track lee+ psych: Depressed no current suicidal ideation or homicidal feeling no delusions or hallucination fair judgment Neuro: Oriented X 3. No motor deficit. No sensory deficit.No cerebellar signs , cranial nerves II-XII intact MDM - Psych Lab Data Labs: Lab Results 02/04/22 Range/Units 01:08 COVID-19 (ELOY) Negative (Negative) COVID-19 Clin Com See Note Discharge Plan Discharge Clinical Impression: PTSD (post-traumatic stress disorder), Alcohol use disorder, moderate, dependence, Opioid use disorder, Suicidal ideation, Depression Patient Disposition: Still a Patient Prescriptions: No Action clonidine HCl 0.1 mg tablet 1 tab PO BID 0RF nicotine (polacrilex) 2 mg gum 2 mg PO Q1H PRN (Reason: Nicotine Cravings) 0RF gabapentin 400 mg capsule 3 cap PO TID 0RF thiamine HCl (vitamin B1) 100 mg tablet 2 tab PO DAILY 0RF nicotine 21 mg/24 hr patch 24 hour 1 patch topical DAILY 0RF buprenorphine-naloxone [Suboxone] 12-3 mg film 1 strip sublingual DAILY 0RF buprenorphine-naloxone [Suboxone] 8-2 mg film 1 strip sublingual DAILY@1700 0RF
[2022-02-04 01:31] LABS: COVID-19 Test Negative (Negative)
[2022-02-04 01:43] LABS: MANUAL DIFF FLAG NO
[2022-02-04 01:44] LABS: Basophils Percent Auto 0.5 % (0-2); Eosinophils Absolute Auto 0.2 X10*3/uL (0.0-0.4); Eosinophils Percent Auto 2.5 % (0-4); Hematocrit 31.2 % (42.0-52.0); Hemoglobin 9.7 g/dl (14.0-18.0); Imm Gran Abs Auto 0.02 X10*3/uL (0.00-0.03); Imm Gran Pct Auto 0.3 % (0.0-0.4); Lymphocytes Absolute Auto 2.2 X10*3/uL (1.2-4.9); Lymphocytes Percent Auto 29.4 % (20-40); Mean Corpuscular HGB Conc 31.1 g/dl (31.0-36.0); Mean Corpuscular Hemoglobin 20.8 pg (27.0-33.0); Mean Corpuscular Volume 66.8 fL (80.0-98.0); Mean Platelet Volume 10.1 fL (9.4-12.4); Monocytes Percent Auto 13.8 % (2-11); Neutrophils Absolute Auto 4.1 x10*3/uL (2.0-8.3); Neutrophils Percent Auto 53.5 % (45-73); Platelet Count 379 X10*3/uL (160-400); Red Blood Count 4.67 X10*6/uL (4.60-5.80); Red Cell Distribution Width 14.6 % (11.0-16.0); White Blood Count 7.6 X10*3/uL (4.8-10.8)
[2022-02-04 02:04] LABS: Ethanol 42 mg/dL
[2022-02-04 02:09] LABS: Alanine Aminotransferase 72 U/L (0-40); Albumin Level 3.5 g/dL (3.5-5.0); Alkaline Phosphatase 85 U/L (39-117); Anion Gap 14 (12-20); Aspartate Amino Transferase 68 U/L (5-37); Bilirubin Total 0.7 mg/dL (0.0-1.0); Blood Urea Nitrogen 9 mg/dL (9-16); Calcium 8.6 mg/dL (8.4-10.2); Carbon Dioxide 24 mmol/L (22-29); Chloride 102 mmol/L (96-108); Creatinine Clr Calc Pharmacy 134.8; Estimated Glomerular Filt Rate > 60; Glucose Random 137 mg/dL (60-115); Potassium 3.7 mmol/L (3.3-5.1); Sodium 136 mmol/L (135-145); Total Protein 6.5 g/dL (6.5-8.0)
[2022-02-04 03:19] LABS: Appearance Urine CLEAR; Color Urine YELLOW; Glucose Urine UA NEG (NEG); Leukocyte Esterase Urine NEG (NEG); Nitrite Urine NEG (NEG); PH 5.5 (5.0-8.0); Specific Gravity - Urine 1.015 (1.005-1.025); Urine Blood NEG (NEG); Urine Ketones NEG (NEG); Urine Protein NEG (NEG-TRACE)
[2022-02-04 04:12] LABS: Amphetamine Screen Urine Not Detected (Not Detect); Barbiturates, Urine Not Detected (Not Detect); Benzodiazepines Screen Urine Not Detected (Not Detect); Cannabinoid Screen Urine Not Detected (Not Detect); Cocaine Screen Urine POSITIVE (Not Detect); Fentanyl, urine POSITIVE (Not Detect); Opiate Screen Urine POSITIVE (Not Detect); Phencyclidine Screen Urine Not Detected (Not Detect)
--- NOTE | 2022-02-04 06:15 | PC.NURSE ---
Patient slept through the night, no distress observed/reported, feet and hand edematous, provider aware no new order, behavior non concerning, Med rec completed/JAN updated, patient was assessed by N disposition voluntary inpatient bed search, will continue to monitor.
[2022-02-04] MEDS: chlordiazePOXIDE HCl 25 MG CAPSULE PO ×2 (06:42→18:51)
--- NOTE | 2022-02-04 06:44 | PC.NURSE ---
CIWA 10, administered 25 mg/pending effect.
--- NOTE | 2022-02-04 07:08 | PC.NURSE ---
patient appears to remain asleep at present respirations are even and unlabored patient appears in no distress
[2022-02-04] MEDS: Nicotine 21 MG PATCH.TD24 TRANSDERMA (09:51)
[2022-02-04] MEDS: Gabapentin 400 MG CAPSULE 1200 MG PO ×3 (09:51→20:34)
[2022-02-04] MEDS: Thiamine HCL 100 MG TABLET 200 MG PO (09:51)
[2022-02-04] MEDS: cloNIDine HCL 0.1 MG TABLET PO ×2 (09:51→23:13)
--- NOTE | 2022-02-04 10:25 | HE.PHANOTE ---
Suboxone was continue from home medication list. The order is currently pended. Medication has not been picked up since 01/13/22 for a 7 days supply. Last prescribed when patient was discharge from here by Broderick Caballero. Spoke with Dr Dougherty, he will monitor patient's COWs scale to determine if patient need Suboxone. Tesha Underwood, PharmD
[2022-02-04] MEDS: LORazepam 1 MG TABLET 2 MG PO (23:29)
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
[2022-02-05 06:43] VITALS: BP 102/55; PULSE 68; RESP 18; TEMP 37.6; O2SAT 99
[2022-02-05] MEDS: cloNIDine HCL 0.1 MG TABLET PO ×2 (08:42→20:23)
[2022-02-05] MEDS: Nicotine 21 MG PATCH.TD24 TRANSDERMA (08:42)
[2022-02-05] MEDS: LORazepam 1 MG TABLET 2 MG PO (08:42)
[2022-02-05] MEDS: Thiamine HCL 100 MG TABLET 200 MG PO (08:42)
[2022-02-05] MEDS: Buprenorphine/Naloxone 12/3 mg FILM 1 FILM SUBLINGUAL (08:42)
[2022-02-05] MEDS: Gabapentin 400 MG CAPSULE 1200 MG PO ×3 (08:42→20:23)
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
[2022-02-05] MEDS: Acetaminophen 325 MG TABLET 650 MG PO (14:31)
[2022-02-05] MEDS: LORazepam 1 MG TABLET PO ×2 (14:34→20:23)
[2022-02-05] MEDS: Buprenorphine/Naloxone 8/2 mg FILM 1 FILM SUBLINGUAL (16:30)
[2022-02-05] MEDS: Nicotine Polacrilex 2 MG GUM BUCCAL ×2 (18:15→20:30)
[2022-02-05 20:00] VITALS: BP 132/76; PULSE 108; TEMP 37.2; O2SAT 99
[2022-02-06 06:00] VITALS: BP 128/88; PULSE 90; RESP 14; TEMP 36.6; O2SAT 7
[2022-02-06 07:00] VITALS: BMI 25.4
[2022-02-06] MEDS: Nicotine 21 MG PATCH.TD24 TRANSDERMA (08:20)
[2022-02-06] MEDS: LORazepam 1 MG TABLET PO ×3 (08:20→20:03)
[2022-02-06] MEDS: Thiamine HCL 100 MG TABLET 200 MG PO (08:20)
[2022-02-06] MEDS: Gabapentin 400 MG CAPSULE 1200 MG PO ×3 (08:20→20:04)
[2022-02-06] MEDS: Buprenorphine/Naloxone 12/3 mg FILM 1 FILM SUBLINGUAL (08:20)
[2022-02-06] MEDS: cloNIDine HCL 0.1 MG TABLET PO ×2 (08:20→20:03)
[2022-02-06] MEDS: Nicotine Polacrilex 2 MG GUM BUCCAL ×3 (08:46→16:20)
--- NOTE | 2022-02-06 13:04 | HO.PSYCHPN ---
Subjective Subjective Date of Service: 02/06/22 Reason For Visit: PTSD Depression w/Psychosis SI ETOH/Opiate Use D/O Interim History: Patient reports that he is still feeling alcohol withdrawal and getting sweaty however he does acknowledge that he was mostly able to rest with current medication. Patient asks if he can please start Adderall XR are 30 mg daily. Financing Analyst touched on his history of stimulant abuse and patient agrees that this has occurred however he has been on Adderall for a long time and specifically this medication and gabapentin has made a significant difference in his ability to function. He says on these 2 medications I want to do the right things... Financing Analyst discussed that patient needs to get a permanent outpatient provider and that team will help set that up for him during this admission; however if patient does not follow up with this provider, television writer will not be able to provide future scripts for this patient should he become inpatient again. Patient said he fully understands this. [facility] [place] person available for drop-in appointments. Patient talked about how he was kicked out of [email or web address] ([facility]) for threatening to kill one of the staff people there named Baudilio. He said it was a mistake and that he meant to text 1 of his friends named Baudilio. He understands he needs to contact them and see if this could be cleared up and if he can return saying they have some of his belongings and his cellphone. Patient's goal is to get in to the [facility], a [place] treatment program for dual diagnosis. Financing Analyst discussed this and patient agrees and understands that he will need to pursue this with his [facility] providers. Financing Analyst talked about patient's history of PTSD and his report of symptoms of nightmares and flashbacks and hypervigilance. Patient did not want to discuss details but agreed to a trial of Prozac after television writer reviewed side effects/risks. He says he has never been on this type of medication in the past. Financing Analyst screened for history of manic type behaviors or episodes which was negative. Patient has trouble sleeping and says that trazodone causes pre a prism and Seroquel causes restless leg. He asks for Benadryl to which television writer agrees. Patient endorses depression but denies SI or HI. Mental Status Exam Mental Status Exam Narrative: Pt is alert and oriented; behavior is cooperative, calm; patient is not in distress; dressed in casual attire with unkempt hair but adequate hygiene; mood is described as depressed and affect congruent but no longer irritable; eye contact appropriate; Speech is normal rate, volume and prosody and not pressured; no psychomotor agitation/retardation present; thought process is organized and goal directed; Thought content is on tx; otherwise pertinent to relevant topics and without any delusional content, paranoid ideations or grandiosity; no SI; no HI. There is no evidence of perceptual disturbance. ?Patients insight and judgment appear intact. Diagnostics Vital Signs (24Hr): Vital Signs - 24 hr 02/05/22 20:00 Temperature 98.9 F Pulse Rate 108 H Blood Pressure 132/76 Pulse Oximetry 99 BMI result Body Mass Index 25.1 Labs Results: 02/04/22 01:37 02/04/22 01:37 Medications Medications Current Medications Acetaminophen (Acetaminophen 325 Mg Tablet) 650 mg PO Q6H PRN PRN Reason: Headache/Pain Mild Scale (1-3) Last Admin: 02/05/22 14:31 Dose: 650 mg Documented by: Al Hydroxide/Mg Hydroxide (Magnesium Hydrox/Alum Hydrox 30 Ml Oral.Susp) 30 ml PO Q6H PRN PRN Reason: Heartburn/Nausea Amphetamine/Dextroamphetamine (Dextroamphetamine/Amphetamine Xr 10 Mg Cap.Er.24h) 30 mg PO DAILY COUNTS INCLUDE 234 BEDS AT THE [facility] Amphetamine/Dextroamphetamine (Dextroamphetamine/Amphetamine Xr 10 Mg Cap.Er.24h) 30 mg PO ONCE ONE Stop: 02/06/22 13:03 Buprenorphine/Naloxone (Buprenorphine/Naloxone 8/2 Mg Film) 1 film SUBLINGUAL DAILY@1700 COUNTS INCLUDE 234 BEDS AT THE [facility] Last Admin: 02/05/22 16:30 Dose: 1 film Documented by: Buprenorphine/Naloxone (Buprenorphine/Naloxone 12/3 Mg Film) 1 film SUBLINGUAL DAILY COUNTS INCLUDE 234 BEDS AT THE [facility] Last Admin: 02/06/22 08:20 Dose: 1 film Documented by: Clonidine HCl (Clonidine Hcl 0.1 Mg Tablet) 0.1 mg PO BID COUNTS INCLUDE 234 BEDS AT THE [facility]; Protocol Last Admin: 02/06/22 08:20 Dose: 0.1 mg Documented by: Fluoxetine HCl (Fluoxetine Hcl 10 Mg Capsule) 10 mg PO DAILY COUNTS INCLUDE 234 BEDS AT THE [facility] Gabapentin (Gabapentin 400 Mg Capsule) 1,200 mg PO TID COUNTS INCLUDE 234 BEDS AT THE [facility] Last Admin: 02/06/22 08:20 Dose: 1,200 mg Documented by: Hydroxyzine HCl (Hydroxyzine Hcl 25 Mg Tablet) 25 mg PO BEDTIME PRN PRN Reason: Anxiety Loperamide HCl (Loperamide Hcl 2 Mg Capsule) 2 mg PO Q4H PRN PRN Reason: Loose Stool Lorazepam (Lorazepam 1 Mg Tablet) 1 mg PO TID COUNTS INCLUDE 234 BEDS AT THE [facility] Stop: 02/06/22 23:55 Last Admin: 02/06/22 08:20 Dose: 1 mg Documented by: Lorazepam (Lorazepam 1 Mg Tablet) 1 mg PO BID COUNTS INCLUDE 234 BEDS AT THE [facility] Stop: 02/08/22 23:50 Lorazepam (Lorazepam 1 Mg Tablet) 1 mg PO DAILY COUNTS INCLUDE 234 BEDS AT THE [facility] Stop: 02/10/22 23:00 Lorazepam (Lorazepam 1 Mg Tablet) 2 mg PO Q2H PRN PRN Reason: CIWA 13 and above Lorazepam (Lorazepam 1 Mg Tablet) 1 mg PO Q2H PRN PRN Reason: CIWA 8 - 12 Magnesium Hydroxide (Milk Of Magnesia 30 Ml Oral.Susp) 30 ml PO DAILY PRN PRN Reason: Constipation Nicotine (Nicotine 21 Mg Patch.Td24) 21 mg TRANSDERMA DAILY COUNTS INCLUDE 234 BEDS AT THE [facility] Last Admin: 02/06/22 08:20 Dose: 21 mg Documented by: Nicotine Polacrilex (Nicotine Polacrilex 2 Mg Gum) 2 mg BUCCAL Q1H PRN PRN Reason: Nicotine Cravings Last Admin: 02/06/22 08:46 Dose: 2 mg Documented by: Thiamine HCl (Thiamine Hcl 100 Mg Tablet) 200 mg PO DAILY COUNTS INCLUDE 234 BEDS AT THE [facility] Last Admin: 02/06/22 08:20 Dose: 200 mg Documented by: Allergies Allergies Allergy/AdvReac Type Severity Reaction Status Date / Time fish derived [FISH] Allergy Unknown UNKNOWN - Verified 01/05/22 21:22 NOT ANAPHYLAXIS PER PATIENT trazodone AdvReac Severe priapr Verified 02/06/22 12:53 Assessment & Plan Assessment & Plan (1) PTSD (post-traumatic stress disorder): Status: Acute Code(s): F43.10 - Post-traumatic stress disorder, unspecified (2) Alcohol use disorder, moderate, dependence: Status: Acute Code(s): F10.20 - Alcohol dependence, uncomplicated (3) Opioid use disorder: Status: Acute Code(s): F11.90 - Opioid use, unspecified, uncomplicated (4) Stimulant use disorder: Status: Acute Code(s): F15.90 - Other stimulant use, unspecified, uncomplicated Plan Pt is a 41 yo with hx of PTSD, polysubstance abuse/dependence, anti-social personality disorder and numerous arrests/incarcerations who presents detoxing from alcohol and opiates and SI. Patient endorses feeling depressed and tired of the cycle of relapse with substance abuse. He also endorses ongoing chronic PTSD symptoms. 02/06 patient continues to have withdrawal symptoms; television writer agrees to start Adderall as patient is emphatic that this medication is what helps some stay stable and want to do the right things. There is some concern that patient uses inpatient admissions to refill some of his prescriptions. Financing Analyst explained (and Patient understands) there will be limitations when writing an outpatient script and that subsequent scripts will not be given if he misses outpt appointment being set up by tx Team. Patient's goal is to get in to the [facility], a dual diagnosis [place] treatment program. Financing Analyst discussed this and patient agrees and understands that he will need to pursue this with his outpatient [place] providers. Patient agrees to trial of Prozac, or having reviewed risks/side effects with patient, for PTSD symptoms. He says he was on Zoloft as a child but does not remember anything about it. Patient asks for Benadryl for sleep PLAN: CV q15min checks -pt detoxing from Etoh, on CIWA -restarted on Suboxone which he says he's tolerating START Prozac 10mg daily for ptsd/depression ADDINg Benadry for insomnia + exra prn sTART Adderall XR 30mg for ADHD symptoms; will give outpatient script but will do it for short durations and only until outpatient provider appointment; patient understands that if for any reason this outpatient appointment is missed, that will be no subsequent outpatient scripts given Social work to set up outpatient appointment with psychiatric television writer at the [place] I spent minutes with the patient and/or on the patient floor today, greater than?50% of which was spent counseling/coordinating care. Patient educated on: diagnosis, medication risk/benefits, substance abuse and therapeutic strategies Informed Consent: understands Reason for contiued inpatient stay Substantial Risk for: rapid decompensation and med/psych decompensation
[2022-02-06] MEDS: FLUoxetine HCl 10 MG CAPSULE PO (13:24)
[2022-02-06] MEDS: Dextroamphetamine/Amphetamine XR 10 MG CAP.ER.24H 30 MG PO (13:36)
[2022-02-06] MEDS: Buprenorphine/Naloxone 8/2 mg FILM 1 FILM SUBLINGUAL (16:20)
[2022-02-06 18:00] VITALS: BP 133/94; PULSE 98
[2022-02-06 19:39] VITALS: BP 123/88; PULSE 116
[2022-02-06] MEDS: diphenhydrAMINE HCL 25 MG TABLET 100 MG PO (20:03)
[2022-02-07 06:00] VITALS: BP 140/88; PULSE 88; RESP 14; TEMP 36.6; O2SAT 97
[2022-02-07] MEDS: Gabapentin 400 MG CAPSULE 1200 MG PO ×3 (07:59→21:00)
[2022-02-07] MEDS: cloNIDine HCL 0.1 MG TABLET PO ×2 (07:59→20:57)
[2022-02-07] MEDS: Nicotine Polacrilex 2 MG GUM BUCCAL ×2 (08:00→17:54)
[2022-02-07] MEDS: Thiamine HCL 100 MG TABLET 200 MG PO (08:00)
[2022-02-07] MEDS: Dextroamphetamine/Amphetamine XR 10 MG CAP.ER.24H 30 MG PO (08:00)
[2022-02-07] MEDS: Nicotine 21 MG PATCH.TD24 TRANSDERMA (08:01)
[2022-02-07] MEDS: Buprenorphine/Naloxone 12/3 mg FILM 1 FILM SUBLINGUAL (08:01)
[2022-02-07] MEDS: FLUoxetine HCl 10 MG CAPSULE PO (08:19)
[2022-02-07] MEDS: LORazepam 1 MG TABLET PO ×4 (08:20→21:00)
--- NOTE | 2022-02-07 12:22 | P.PNPSI_ITS ---
Subjective Subjective Date of Service: 02/07/22 Reason For Visit: PTSD Depression w/Psychosis SI ETOH/Opiate Use D/O Interim History: pt reports he's feeling a little better; still in withdrawal but says it's getting milder. Denies medication side-effects. Pt denies any SI or HI and talks about programs he wants to get into. Pt also talked about housing saying he will start to call places on Thursday (since not open on ). Pt has no complaints; sleeping better. Mental Status Exam Mental Status Exam Narrative: Pt is alert and oriented; behavior is cooperative, calm; patient is not in distress; dressed in casual attire, clean shaven with adequate hygiene; mood is described as little better and affect congruent, brighter; eye contact appropriate; Speech is normal rate, volume and prosody and not pressured; no psychomotor agitation/retardation present; thought process is organized and goal directed; Thought content is on tx; otherwise pertinent to relevant topics and without any delusional content, paranoid ideations or grandiosity; no SI; no HI. There is no evidence of perceptual disturbance. ?Patients insight and judgment appear intact. Diagnostics Vital Signs (24Hr): Vital Signs - 24 hr 02/06/22 18:00 02/06/22 19:39 02/07/22 06:00 Temperature 98 F Pulse Rate 98 116 H 88 Respiratory Rate 14 Blood Pressure 133/94 H 123/88 140/88 H Pulse Oximetry 97 BMI result Body Mass Index 25.4 Labs Results: 02/04/22 01:37 02/04/22 01:37 Medications Medications Current Medications Acetaminophen (Acetaminophen 325 Mg Tablet) 650 mg PO Q6H PRN PRN Reason: Headache/Pain Mild Scale (1-3) Last Admin: 02/05/22 14:31 Dose: 650 mg Documented by: Al Hydroxide/Mg Hydroxide (Magnesium Hydrox/Alum Hydrox 30 Ml Oral.Susp) 30 ml PO Q6H PRN PRN Reason: Heartburn/Nausea Amphetamine/Dextroamphetamine (Dextroamphetamine/Amphetamine Xr 10 Mg Cap.Er.24h) 30 mg PO DAILY [facility] Last Admin: 02/07/22 08:00 Dose: 30 mg Documented by: Buprenorphine/Naloxone (Buprenorphine/Naloxone 8/2 Mg Film) 1 film SUBLINGUAL DAILY@1700 [facility] Last Admin: 02/06/22 16:20 Dose: 1 film Documented by: Buprenorphine/Naloxone (Buprenorphine/Naloxone 12/3 Mg Film) 1 film SUBLINGUAL DAILY [facility] Last Admin: 02/07/22 08:01 Dose: 1 film Documented by: Clonidine HCl (Clonidine Hcl 0.1 Mg Tablet) 0.1 mg PO BID [facility]; Protocol Last Admin: 02/07/22 07:59 Dose: 0.1 mg Documented by: Diphenhydramine HCl (Diphenhydramine Hcl 25 Mg Tablet) 50 mg PO BEDTIME PRN PRN Reason: continued insomnia Diphenhydramine HCl (Diphenhydramine Hcl 25 Mg Tablet) 100 mg PO BEDTIME [facility] Last Admin: 02/06/22 20:03 Dose: 100 mg Documented by: Fluoxetine HCl (Fluoxetine Hcl 10 Mg Capsule) 10 mg PO DAILY [facility] Last Admin: 02/07/22 08:19 Dose: 10 mg Documented by: Gabapentin (Gabapentin 400 Mg Capsule) 1,200 mg PO TID [facility] Last Admin: 02/07/22 07:59 Dose: 1,200 mg Documented by: Hydroxyzine HCl (Hydroxyzine Hcl 25 Mg Tablet) 25 mg PO BEDTIME PRN PRN Reason: Anxiety Loperamide HCl (Loperamide Hcl 2 Mg Capsule) 2 mg PO Q4H PRN PRN Reason: Loose Stool Lorazepam (Lorazepam 1 Mg Tablet) 1 mg PO BID [facility] Stop: 02/08/22 23:50 Lorazepam (Lorazepam 1 Mg Tablet) 1 mg PO DAILY [facility] Stop: 02/10/22 23:00 Lorazepam (Lorazepam 1 Mg Tablet) 2 mg PO Q2H PRN PRN Reason: CIWA 13 and above Lorazepam (Lorazepam 1 Mg Tablet) 1 mg PO Q2H PRN PRN Reason: CIWA 8 - 12 Last Admin: 02/07/22 08:20 Dose: 1 mg Documented by: Magnesium Hydroxide (Milk Of Magnesia 30 Ml Oral.Susp) 30 ml PO DAILY PRN PRN Reason: Constipation Nicotine (Nicotine 21 Mg Patch.Td24) 21 mg TRANSDERMA DAILY [facility] Last Admin: 02/07/22 08:01 Dose: 21 mg Documented by: Nicotine Polacrilex (Nicotine Polacrilex 2 Mg Gum) 2 mg BUCCAL Q1H PRN PRN Reason: Nicotine Cravings Last Admin: 02/07/22 08:00 Dose: 2 mg Documented by: Thiamine HCl (Thiamine Hcl 100 Mg Tablet) 200 mg PO DAILY [facility] Last Admin: 02/07/22 08:00 Dose: 200 mg Documented by: Allergies Allergies Allergy/AdvReac Type Severity Reaction Status Date / Time fish derived [FISH] Allergy Unknown UNKNOWN - Verified 01/05/22 21:22 NOT ANAPHYLAXIS PER PATIENT trazodone AdvReac Severe priapr Verified 02/06/22 12:53 Assessment & Plan Assessment & Plan (1) PTSD (post-traumatic stress disorder): Status: Acute Code(s): F43.10 - Post-traumatic stress disorder, unspecified (2) Alcohol use disorder, moderate, dependence: Status: Acute Code(s): F10.20 - Alcohol dependence, uncomplicated (3) Opioid use disorder: Status: Acute Code(s): F11.90 - Opioid use, unspecified, uncomplicated (4) Stimulant use disorder: Status: Acute Code(s): F15.90 - Other stimulant use, unspecified, uncomplicated Plan Pt is a 41 yo with hx of PTSD, polysubstance abuse/dependence, anti- social personality disorder and numerous arrests/incarcerations who presents detoxing from alcohol and opiates and SI. Patient endorses feeling depressed and tired of the cycle of relapse with substance abuse. He also endorses ongoing chronic PTSD symptoms. 02/06 patient continues to have withdrawal symptoms; manual writer agrees to start Adderall as patient is emphatic that this medication is what helps some stay stable and want to do the right things. There is some concern that patient uses inpatient admissions to refill some of his prescriptions. Lip Cutter explained (and Patient understands) there will be limitations when writing an outpatient script and that subsequent scripts will not be given if he misses outpt appointment being set up by tx Team. Patient's goal is to get in to the [facility], a dual diagnosis [place] treatment program. Lip Cutter discussed this and patient agrees and understands that he will need to pursue this with his outpatient [facility] providers. Patient agrees to trial of Prozac, or having reviewed risks/side effects with patient, for PTSD symptoms. He says he was on Zoloft as a child but does not remember anything about it. Patient asks for Benadryl for sleep 02/07 withdrawal getting mild; mood better and no SI. tolerating meds PLAN: CV q15min checks -pt detoxing from Etoh, on CIWA Continue Suboxone 12/3 daily and 8/1mg afternoon Continue Prozac 10mg daily for ptsd/depression; may increase Continue Benadry 100mg qhs for insomnia + exra prn Continue Adderall XR 30mg for ADHD symptoms; will give outpatient script but will do it for short durations and only until outpatient provider appointment; patient understands that if for any reason this outpatient appointment is missed, that will be no subsequent outpatient scripts given Continue Gabapentin 1200mg TID (which was RE-started by admitting provider) Continue Clonidine 0.1mg BID, started by admitting provider Social work to set up outpatient appointment with psychiatric manual writer at the [place] I spent minutes with the patient and/or on the patient floor today, greater than?50% of which was spent counseling/coordinating care. Patient educated on: diagnosis and substance abuse Informed Consent: understands Reason for contiued inpatient stay Substantial Risk for: med/psych decompensation
[2022-02-07 16:41] VITALS: BP 134/92; PULSE 78; RESP 14; TEMP 37; O2SAT 98
[2022-02-07] MEDS: Buprenorphine/Naloxone 8/2 mg FILM 1 FILM SUBLINGUAL (16:44)
[2022-02-07] MEDS: diphenhydrAMINE HCL 25 MG TABLET 100 MG PO (20:59)
[2022-02-08] MEDS: Dextroamphetamine/Amphetamine XR 10 MG CAP.ER.24H 30 MG PO (07:52)
[2022-02-08] MEDS: Gabapentin 400 MG CAPSULE 1200 MG PO ×3 (07:52→20:34)
[2022-02-08] MEDS: FLUoxetine HCl 10 MG CAPSULE PO (07:53)
[2022-02-08] MEDS: Thiamine HCL 100 MG TABLET 200 MG PO (07:53)
[2022-02-08] MEDS: Nicotine 21 MG PATCH.TD24 TRANSDERMA (07:53)
[2022-02-08] MEDS: Buprenorphine/Naloxone 12/3 mg FILM 1 FILM SUBLINGUAL (07:53)
[2022-02-08] MEDS: cloNIDine HCL 0.1 MG TABLET PO ×2 (07:53→20:35)
[2022-02-08] MEDS: LORazepam 1 MG TABLET PO ×4 (07:53→20:35)
[2022-02-08 08:00] VITALS: BP 120/80; PULSE 101; TEMP 36.4; O2SAT 98
[2022-02-08] MEDS: Loperamide HCl 2 MG CAPSULE PO ×2 (08:14→13:12)
[2022-02-08] MEDS: Nicotine Polacrilex 2 MG GUM BUCCAL ×3 (15:30→20:35)
--- NOTE | 2022-02-08 16:17 | HO.PSYCHPN ---
Subjective Subjective Date of Service: 02/08/22 Reason For Visit: PTSD Depression w/Psychosis SI ETOH/Opiate Use D/O Interim History: Patient seen and discussed with team. Patient evaluated today and upon interview he reports when im the combo im on, im great, i'm super focused. [facility]. Sleep has been up and down, thinks its because im here. Working on a puzzle.? In the milieu, patient is safe and appropriate in behavior, irritable at times. Denies SI/SIB/HI upon inquiry. Says he feels safe. Medication Compliance: Yes Side effects from medications: No Attending Groups: Yes Review of Systems Acute medical concerns: No Medical Review of Systems: unchanged Mental Status Exam Mental Status Exam Narrative: Pt is alert and oriented; behavior is cooperative, calm; patient is not in distress; dressed in casual attire, clean shaven with adequate hygiene; mood is described as okay and affect congruent, appropriate;? eye contact appropriate; Speech is normal rate, volume and prosody and not pressured; no psychomotor agitation/retardation present; thought process is organized and goal directed; Thought content is on tx; otherwise pertinent to relevant topics and without any delusional content, paranoid ideations or grandiosity; no SI; no HI. There is no evidence of perceptual disturbance. ?Patients insight and judgment appear intact. Diagnostics Vital Signs (24Hr): Vital Signs - 24 hr 02/09/22 08:25 02/09/22 18:00 Temperature 97.8 F 97.8 F Pulse Rate 83 108 H Respiratory Rate 16 Blood Pressure 124/80 123/86 Pulse Oximetry 99 98 BMI result Body Mass Index 25.4 Labs Results: 02/04/22 01:37 02/04/22 01:37 Medications Medications Current Medications Acetaminophen (Acetaminophen 325 Mg Tablet) 650 mg PO Q6H PRN PRN Reason: Headache/Pain Mild Scale (1-3) Last Admin: 02/05/22 14:31 Dose: 650 mg Documented by: Al Hydroxide/Mg Hydroxide (Magnesium Hydrox/Alum Hydrox 30 Ml Oral.Susp) 30 ml PO Q6H PRN PRN Reason: Heartburn/Nausea Amphetamine/Dextroamphetamine (Dextroamphetamine/Amphetamine Xr 10 Mg Cap.Er.24h) 30 mg PO DAILY [facility] Last Admin: 02/09/22 08:11 Dose: 30 mg Documented by: Buprenorphine/Naloxone (Buprenorphine/Naloxone 8/2 Mg Film) 1 film SUBLINGUAL DAILY@1700 [facility] Last Admin: 02/09/22 17:09 Dose: 1 film Documented by: Buprenorphine/Naloxone (Buprenorphine/Naloxone 12/3 Mg Film) 1 film SUBLINGUAL DAILY [facility] Last Admin: 02/09/22 08:11 Dose: 1 film Documented by: Clonidine HCl (Clonidine Hcl 0.1 Mg Tablet) 0.1 mg PO DAILY [facility]; Protocol Clonidine HCl (Clonidine Hcl 0.2 Mg Tablet) 0.2 mg PO BEDTIME [facility]; Protocol Last Admin: 02/09/22 19:49 Dose: 0.2 mg Documented by: Diphenhydramine HCl (Diphenhydramine Hcl 25 Mg Tablet) 50 mg PO BEDTIME PRN PRN Reason: continued insomnia Diphenhydramine HCl (Diphenhydramine Hcl 25 Mg Tablet) 100 mg PO BEDTIME [facility] Last Admin: 02/09/22 19:50 Dose: 100 mg Documented by: Fluoxetine HCl (Fluoxetine Hcl 10 Mg Capsule) 10 mg PO DAILY [facility] Last Admin: 02/09/22 08:11 Dose: 10 mg Documented by: Gabapentin (Gabapentin 400 Mg Capsule) 1,200 mg PO TID [facility] Last Admin: 02/09/22 19:50 Dose: 1,200 mg Documented by: Hydroxyzine HCl (Hydroxyzine Hcl 25 Mg Tablet) 25 mg PO BEDTIME PRN PRN Reason: Anxiety Last Admin: 02/09/22 19:49 Dose: 25 mg Documented by: Loperamide HCl (Loperamide Hcl 2 Mg Capsule) 2 mg PO Q4H PRN PRN Reason: Loose Stool Last Admin: 02/09/22 11:12 Dose: 2 mg Documented by: Lorazepam (Lorazepam 1 Mg Tablet) 1 mg PO DAILY [facility] Stop: 02/10/22 23:00 Last Admin: 02/09/22 08:11 Dose: 1 mg Documented by: Lorazepam (Lorazepam 1 Mg Tablet) 2 mg PO Q2H PRN PRN Reason: CIWA 13 and above Last Admin: 02/09/22 19:50 Dose: 2 mg Documented by: Lorazepam (Lorazepam 1 Mg Tablet) 1 mg PO Q2H PRN PRN Reason: CIWA 8 - 12 Last Admin: 02/09/22 12:56 Dose: 1 mg Documented by: Magnesium Hydroxide (Milk Of Magnesia 30 Ml Oral.Susp) 30 ml PO DAILY PRN PRN Reason: Constipation Nicotine (Nicotine 21 Mg Patch.Td24) 21 mg TRANSDERMA DAILY [facility] Last Admin: 02/09/22 08:11 Dose: 21 mg Documented by: Nicotine Polacrilex (Nicotine Polacrilex 2 Mg Gum) 2 mg BUCCAL Q1H PRN PRN Reason: Nicotine Cravings Last Admin: 02/09/22 19:49 Dose: 2 mg Documented by: Thiamine HCl (Thiamine Hcl 100 Mg Tablet) 200 mg PO DAILY [facility] Last Admin: 02/09/22 08:11 Dose: 200 mg Documented by: Allergies Allergies Allergy/AdvReac Type Severity Reaction Status Date / Time fish derived [FISH] Allergy Unknown UNKNOWN - Verified 01/05/22 21:22 NOT ANAPHYLAXIS PER PATIENT trazodone AdvReac Severe priapr Verified 02/06/22 12:53 Assessment & Plan Assessment & Plan (1) PTSD (post-traumatic stress disorder): Status: Acute Code(s): F43.10 - Post-traumatic stress disorder, unspecified (2) Alcohol use disorder, moderate, dependence: Status: Acute Code(s): F10.20 - Alcohol dependence, uncomplicated (3) Opioid use disorder: Status: Acute Code(s): F11.90 - Opioid use, unspecified, uncomplicated (4) Stimulant use disorder: Status: Acute Code(s): F15.90 - Other stimulant use, unspecified, uncomplicated Plan Pt is a 41 yo with hx of PTSD, polysubstance abuse/dependence, anti-social personality disorder and numerous arrests/incarcerations who presents detoxing from alcohol and opiates and SI. Patient endorses feeling depressed and tired of the cycle of relapse with substance abuse. He also endorses ongoing chronic PTSD symptoms. 02/06 patient continues to have withdrawal symptoms; handbook writer agrees to start Adderall as patient is emphatic that this medication is what helps some stay stable and want to do the right things. There is some concern that patient uses inpatient admissions to refill some of his prescriptions. Planning Official explained (and Patient understands) there will be limitations when writing an outpatient script and that subsequent scripts will not be given if he misses outpt appointment being set up by tx Team. Patient's goal is to get in to the [facility], [facility]. Planning Official discussed this and patient agrees and understands that he will need to pursue this with his outpatient [facility] providers. Patient agrees to trial of Prozac, or having reviewed risks/side effects with patient, for PTSD symptoms. He says he was on Zoloft as a child but does not remember anything about it. Patient asks for Benadryl for sleep 02/07 withdrawal getting mild; mood better and no SI. tolerating meds 02/08 No changes to med regimen, scoring lower on CIWA PLAN: CV q15min checks -pt detoxing from Etoh, on CIWA Continue Suboxone 12/3 daily and 8/1mg afternoon Continue Prozac 10mg daily for ptsd/depression; may increase Continue Benadry 100mg qhs for insomnia + exra prn Continue Adderall XR 30mg for ADHD symptoms; will give outpatient script but will do it for short durations and only until outpatient provider appointment; patient understands that if for any reason this outpatient appointment is missed, that will be no subsequent outpatient scripts given Continue Gabapentin 1200mg TID (which was RE-started by admitting provider) Continue Clonidine 0.1mg BID, started by admitting provider Social work to [facility] I spent minutes with the patient and/or on the patient floor today, greater than?50% of which was spent counseling/coordinating care. Reason for contiued inpatient stay Substantial Risk for: rapid decompensation and med/psych decompensation
[2022-02-08] MEDS: Buprenorphine/Naloxone 8/2 mg FILM 1 FILM SUBLINGUAL (16:55)
[2022-02-08 18:00] VITALS: BP 145/88; PULSE 112; TEMP 37; O2SAT 98
[2022-02-08] MEDS: diphenhydrAMINE HCL 25 MG TABLET 100 MG PO (20:34)
[2022-02-09] MEDS: cloNIDine HCL 0.1 MG TABLET PO (08:10)
[2022-02-09] MEDS: Gabapentin 400 MG CAPSULE 1200 MG PO ×3 (08:10→19:50)
[2022-02-09] MEDS: LORazepam 1 MG TABLET PO ×2 (08:11→12:56)
[2022-02-09] MEDS: Buprenorphine/Naloxone 12/3 mg FILM 1 FILM SUBLINGUAL (08:11)
[2022-02-09] MEDS: FLUoxetine HCl 10 MG CAPSULE PO (08:11)
[2022-02-09] MEDS: Thiamine HCL 100 MG TABLET 200 MG PO (08:11)
[2022-02-09] MEDS: Dextroamphetamine/Amphetamine XR 10 MG CAP.ER.24H 30 MG PO (08:11)
[2022-02-09] MEDS: Nicotine 21 MG PATCH.TD24 TRANSDERMA (08:11)
[2022-02-09 08:25] VITALS: BP 124/80; PULSE 83; TEMP 36.6; O2SAT 99
[2022-02-09] MEDS: Loperamide HCl 2 MG CAPSULE PO (11:12)
[2022-02-09] MEDS: Nicotine Polacrilex 2 MG GUM BUCCAL ×2 (11:12→19:49)
[2022-02-09] MEDS: Buprenorphine/Naloxone 8/2 mg FILM 1 FILM SUBLINGUAL (17:09)
[2022-02-09 18:00] VITALS: BP 123/86; PULSE 108; RESP 16; TEMP 36.6; O2SAT 98
--- NOTE | 2022-02-09 18:17 | HO.PSYCHPN ---
Subjective Subjective Date of Service: 02/09/22 Reason For Visit: PTSD Depression w/Psychosis SI ETOH/Opiate Use D/O Subjective Notes: Betts Warning and Conditional Voluntary Interim History: Patient seen and discussed with team. Patient evaluated today and upon interview pt reports Im loveht. Says sleep has been a thing, has difficulty falling asleep, not sure if because i'm here, but also says he didnt sleep much prior to coming in due to sleeping in the street, now getting four to six hours, has nightmares. Energy is okay. Discussed trialing an increase in bedtime clonidine. Pt is worried about homelessness. In the milieu, patient is safe and appropriate in behavior, working on a puzzle. Denies SI/SIB/HI upon inquiry. Says he feels safe. Medication Compliance: Yes Side effects from medications: No Attending Groups: Intermittent Review of Systems Acute medical concerns: No Medical Review of Systems: unchanged Mental Status Exam Mental Status Exam Narrative: Pt is alert and oriented; behavior is cooperative, calm; patient is not in distress; dressed in casual attire, clean shaven with adequate hygiene; mood is described as okay and affect congruent, appropriate;? eye contact appropriate; Speech is normal rate, volume and prosody and not pressured; no psychomotor agitation/retardation present; thought process is organized and goal directed; Thought content is on tx; otherwise pertinent to relevant topics and without any delusional content, paranoid ideations or grandiosity; no SI; no HI. There is no evidence of perceptual disturbance. ?Patients insight and judgment appear intact. Diagnostics Vital Signs (24Hr): Vital Signs - 24 hr 02/09/22 18:00 02/10/22 06:00 Temperature 97.8 F 98 F Pulse Rate 108 H 69 Respiratory Rate 16 16 Blood Pressure 123/86 106/61 Pulse Oximetry 98 99 BMI result Body Mass Index 25.4 Labs Results: 02/04/22 01:37 02/04/22 01:37 Medications Medications Current Medications Acetaminophen (Acetaminophen 325 Mg Tablet) 650 mg PO Q6H PRN PRN Reason: Headache/Pain Mild Scale (1-3) Last Admin: 02/05/22 14:31 Dose: 650 mg Documented by: Al Hydroxide/Mg Hydroxide (Magnesium Hydrox/Alum Hydrox 30 Ml Oral.Susp) 30 ml PO Q6H PRN PRN Reason: Heartburn/Nausea Amphetamine/Dextroamphetamine (Dextroamphetamine/Amphetamine Xr 10 Mg Cap.Er.24h) 30 mg PO DAILY [facility] Last Admin: 02/10/22 08:20 Dose: 30 mg Documented by: Buprenorphine/Naloxone (Buprenorphine/Naloxone 8/2 Mg Film) 1 film SUBLINGUAL DAILY@1700 [facility] Last Admin: 02/09/22 17:09 Dose: 1 film Documented by: Buprenorphine/Naloxone (Buprenorphine/Naloxone 12/3 Mg Film) 1 film SUBLINGUAL DAILY [facility] Last Admin: 02/10/22 08:22 Dose: 1 film Documented by: Clonidine HCl (Clonidine Hcl 0.1 Mg Tablet) 0.1 mg PO DAILY [facility]; Protocol Last Admin: 02/10/22 08:21 Dose: 0.1 mg Documented by: Clonidine HCl (Clonidine Hcl 0.2 Mg Tablet) 0.2 mg PO BEDTIME [facility]; Protocol Last Admin: 02/09/22 19:49 Dose: 0.2 mg Documented by: Diphenhydramine HCl (Diphenhydramine Hcl 25 Mg Tablet) 50 mg PO BEDTIME PRN PRN Reason: continued insomnia Diphenhydramine HCl (Diphenhydramine Hcl 25 Mg Tablet) 100 mg PO BEDTIME [facility] Last Admin: 02/09/22 19:50 Dose: 100 mg Documented by: Fluoxetine HCl (Fluoxetine Hcl 10 Mg Capsule) 10 mg PO DAILY [facility] Last Admin: 02/10/22 08:21 Dose: 10 mg Documented by: Gabapentin (Gabapentin 400 Mg Capsule) 1,200 mg PO TID [facility] Last Admin: 02/10/22 08:18 Dose: 1,200 mg Documented by: Hydroxyzine HCl (Hydroxyzine Hcl 25 Mg Tablet) 25 mg PO BEDTIME PRN PRN Reason: Anxiety Last Admin: 02/09/22 19:49 Dose: 25 mg Documented by: Loperamide HCl (Loperamide Hcl 2 Mg Capsule) 2 mg PO Q4H PRN PRN Reason: Loose Stool Last Admin: 02/09/22 11:12 Dose: 2 mg Documented by: Lorazepam (Lorazepam 1 Mg Tablet) 1 mg PO DAILY [facility] Stop: 02/10/22 23:00 Last Admin: 02/10/22 08:21 Dose: 1 mg Documented by: Lorazepam (Lorazepam 1 Mg Tablet) 2 mg PO Q2H PRN PRN Reason: CIWA 13 and above Last Admin: 02/09/22 19:50 Dose: 2 mg Documented by: Lorazepam (Lorazepam 1 Mg Tablet) 1 mg PO Q2H PRN PRN Reason: CIWA 8 - 12 Last Admin: 02/09/22 12:56 Dose: 1 mg Documented by: Magnesium Hydroxide (Milk Of Magnesia 30 Ml Oral.Susp) 30 ml PO DAILY PRN PRN Reason: Constipation Nicotine (Nicotine 21 Mg Patch.Td24) 21 mg TRANSDERMA DAILY [facility] Last Admin: 02/10/22 08:18 Dose: 21 mg Documented by: Nicotine Polacrilex (Nicotine Polacrilex 2 Mg Gum) 2 mg BUCCAL Q1H PRN PRN Reason: Nicotine Cravings Last Admin: 02/10/22 08:21 Dose: 2 mg Documented by: Thiamine HCl (Thiamine Hcl 100 Mg Tablet) 200 mg PO DAILY [facility] Last Admin: 02/10/22 08:20 Dose: 200 mg Documented by: Allergies Allergies Allergy/AdvReac Type Severity Reaction Status Date / Time fish derived [FISH] Allergy Unknown UNKNOWN - Verified 01/05/22 21:22 NOT ANAPHYLAXIS PER PATIENT trazodone AdvReac Severe priapr Verified 02/06/22 12:53 Assessment & Plan Assessment & Plan (1) PTSD (post-traumatic stress disorder): Status: Acute Code(s): F43.10 - Post-traumatic stress disorder, unspecified (2) Alcohol use disorder, moderate, dependence: Status: Acute Code(s): F10.20 - Alcohol dependence, uncomplicated (3) Opioid use disorder: Status: Acute Code(s): F11.90 - Opioid use, unspecified, uncomplicated (4) Stimulant use disorder: Status: Acute Code(s): F15.90 - Other stimulant use, unspecified, uncomplicated Plan Pt is a 41 yo with hx of PTSD, polysubstance abuse/dependence, anti-social personality disorder and numerous arrests/incarcerations who presents detoxing from alcohol and opiates and SI. Patient endorses feeling depressed and tired of the cycle of relapse with substance abuse. He also endorses ongoing chronic PTSD symptoms. 02/06 patient continues to have withdrawal symptoms; ghost writer agrees to start Adderall as patient is emphatic that this medication is what helps some stay stable and want to do the right things. There is some concern that patient uses inpatient admissions to refill some of his prescriptions. Records Officer explained (and Patient understands) there will be limitations when writing an outpatient script and that subsequent scripts will not be given if he misses outpt appointment being set up by tx Team. Patient's goal is to get in to the [facility], a dual diagnosis [place] treatment program. Records Officer discussed this and patient agrees and understands that he will need to pursue this with his outpatient [facility] providers. Patient agrees to trial of Prozac, or having reviewed risks/side effects with patient, for PTSD symptoms. He says he was on Zoloft as a child but does not remember anything about it. Patient asks for Benadryl for sleep 02/07 withdrawal getting mild; mood better and no SI. tolerating meds 02/08 No changes to med regimen, scoring lower on CIWA 02/09: will increase bedtime clonidine to 0.2 mg QHS for sleep and nightmares. PLAN: CV q15min checks -pt detoxing from Etoh, on CIWA Continue Suboxone 12/3 daily and 8/1mg afternoon Continue Prozac 10mg daily for ptsd/depression; may increase Continue Benadry 100mg qhs for insomnia + exra prn Continue Adderall XR 30mg for ADHD symptoms; will give outpatient script but will do it for short durations and only until outpatient provider appointment; patient understands that if for any reason this outpatient appointment is missed, that will be no subsequent outpatient scripts given Continue Gabapentin 1200mg TID (which was RE-started by admitting provider) Continue Clonidine 0.1mg BID, started by admitting provider Social work to set up outpatient appointment with psychiatric ghost writer at the [place] I spent minutes with the patient and/or on the patient floor today, greater than?50% of which was spent counseling/coordinating care. Reason for contiued inpatient stay Substantial Risk for: harm to self and med/psych decompensation
[2022-02-09] MEDS: cloNIDine HCL 0.2 MG TABLET PO (19:49)
[2022-02-09] MEDS: hydrOXYzine HCL 25 MG TABLET PO (19:49)
[2022-02-09] MEDS: diphenhydrAMINE HCL 25 MG TABLET 100 MG PO (19:50)
[2022-02-09] MEDS: LORazepam 1 MG TABLET 2 MG PO (19:50)
[2022-02-10 06:00] VITALS: BP 106/61; PULSE 69; RESP 16; TEMP 36.6; O2SAT 99
[2022-02-10] MEDS: Nicotine 21 MG PATCH.TD24 TRANSDERMA (08:18)
[2022-02-10] MEDS: Gabapentin 400 MG CAPSULE 1200 MG PO ×3 (08:18→20:31)
[2022-02-10] MEDS: Dextroamphetamine/Amphetamine XR 10 MG CAP.ER.24H 30 MG PO (08:20)
[2022-02-10] MEDS: Thiamine HCL 100 MG TABLET 200 MG PO (08:20)
[2022-02-10] MEDS: FLUoxetine HCl 10 MG CAPSULE PO (08:21)
[2022-02-10] MEDS: cloNIDine HCL 0.1 MG TABLET PO (08:21)
[2022-02-10] MEDS: Nicotine Polacrilex 2 MG GUM BUCCAL ×3 (08:21→20:29)
[2022-02-10] MEDS: LORazepam 1 MG TABLET PO (08:21)
[2022-02-10] MEDS: Buprenorphine/Naloxone 12/3 mg FILM 1 FILM SUBLINGUAL (08:22)
[2022-02-10] MEDS: LORazepam 0.5 MG TABLET PO ×2 (15:22→20:31)
--- NOTE | 2022-02-10 17:06 | P.PNPSI_ITS ---
Subjective Subjective Date of Service: 02/10/22 Reason For Visit: PTSD Depression w/Psychosis SI ETOH/Opiate Use D/O Interim History: Patient says that he is feeling better that withdrawal is complete. He feels that Prozac is working. He says his mood is good and all SI remains resol malissa. Regarding Prozac next effect, he says with some surprise that he does not feel angry, but overall more calm. PTSD symptoms are little less and nightmares less. Patient says that he is ready to discharge and appointments are set up at the [facility] for him for follow-up. Patient asks if aligner typewriter will help send application to [employer] on to which aligner typewriter agrees. Patient is going to stay at his brother's for however long as brother will let him otherwise will stay in a prison until he can get in to sold drawn which he is hopeful about. Patient is future oriented saying [facility], saying he is sick of the cycle of relapse and ready to address PTSD/trauma history. Patient has an appointment for trauma during the coming up in about 1 week. Patient expresses gratitude for help received. He is grateful that medications will be continued with [employer] scripts until his appointment next week on February 18 ([facility]er typewriter [facility] and [facility]18 with TREMAINE Osborne) Mental Status Exam Mental Status Exam Narrative: Pt is alert and oriented; behavior is cooperative, calm; patient is not in distress; dressed in casual attire, clean shaven with adequate hygiene; mood is described as good and affect congruent, appropriate;? eye contact appropriate; Speech is normal rate, volume and prosody and not pressured; no psychomotor agitation/retardation present; thought process is organized and goal directed; Thought content is [facility]; otherwise pertinent to relevant topics and without any delusional content, paranoid ideations or grandiosity; no SI; no HI. There is no evidence of perceptual disturbance. ?Patients insight and judgment appear intact. Diagnostics Vital Signs (24Hr): Vital Signs - 24 hr 02/09/22 18:00 02/10/22 06:00 Temperature 97.8 F 98 F Pulse Rate 108 H 69 Respiratory Rate 16 16 Blood Pressure 123/86 106/61 Pulse Oximetry 98 99 BMI result Body Mass Index 25.4 Labs Results: 02/04/22 01:37 02/04/22 01:37 Medications Medications Current Medications Acetaminophen (Acetaminophen 325 Mg Tablet) 650 mg PO Q6H PRN PRN Reason: Headache/Pain Mild Scale (1-3) Last Admin: 02/05/22 14:31 Dose: 650 mg Documented by: Al Hydroxide/Mg Hydroxide (Magnesium Hydrox/Alum Hydrox 30 Ml Oral.Susp) 30 ml PO Q6H PRN PRN Reason: Heartburn/Nausea Amphetamine/Dextroamphetamine (Dextroamphetamine/Amphetamine Xr 10 Mg Cap.E r.24h) 30 mg PO DAILY [facility] Last Admin: 02/10/22 08:20 Dose: 30 mg Documented by: Buprenorphine/Naloxone (Buprenorphine/Naloxone 8/2 Mg Film) 1 film SUBLINGUAL DAILY@1700 [facility] Last Admin: 02/09/22 17:09 Dose: 1 film Documented by: Buprenorphine/Naloxone (Buprenorphine/Naloxone 12/3 Mg Film) 1 film SUBLINGUAL DAILY [facility] Last Admin: 02/10/22 08:22 Dose: 1 film Documented by: Clonidine HCl (Clonidine Hcl 0.1 Mg Tablet) 0.1 mg PO DAILY [facility]; Protocol Last Admin: 02/10/22 08:21 Dose: 0.1 mg Documented by: Clonidine HCl (Clonidine Hcl 0.2 Mg Tablet) 0.2 mg PO BEDTIME [facility]; Protocol Last Admin: 02/09/22 19:49 Dose: 0.2 mg Documented by: Diphenhydramine HCl (Diphenhydramine Hcl 25 Mg Tablet) 50 mg PO BEDTIME PRN PRN Reason: continued insomnia Diphenhydramine HCl (Diphenhydramine Hcl 25 Mg Tablet) 100 mg PO BEDTIME [facility] Last Admin: 02/09/22 19:50 Dose: 100 mg Documented by: Fluoxetine HCl (Fluoxetine Hcl 10 Mg Capsule) 10 mg PO DAILY [facility] Last Admin: 02/10/22 08:21 Dose: 10 mg Documented by: Gabapentin (Gabapentin 400 Mg Capsule) 1,200 mg PO TID [facility] Last Admin: 02/10/22 14:22 Dose: 1,200 mg Documented by: Hydroxyzine HCl (Hydroxyzine Hcl 25 Mg Tablet) 25 mg PO BEDTIME PRN PRN Reason: Anxiety Last Admin: 02/09/22 19:49 Dose: 25 mg Documented by: Loperamide HCl (Loperamide Hcl 2 Mg Capsule) 2 mg PO Q4H PRN PRN Reason: Loose Stool Last Admin: 02/09/22 11:12 Dose: 2 mg Documented by: Lorazepam (Lorazepam 1 Mg Tablet) 1 mg PO DAILY [facility] Stop: 02/10/22 23:00 Last Admin: 02/10/22 08:21 Dose: 1 mg Documented by: Lorazepam (Lorazepam 0.5 Mg Tablet) 0.5 mg PO BID PRN PRN Reason: anxiety Last Admin: 02/10/22 15:22 Dose: 0.5 mg Documented by: Magnesium Hydroxide (Milk Of Magnesia 30 Ml Oral.Susp) 30 ml PO DAILY PRN PRN Reason: Constipation Nicotine (Nicotine 21 Mg Patch.Td24) 21 mg TRANSDERMA DAILY [facility] Last Admin: 02/10/22 08:18 Dose: 21 mg Documented by: Nicotine Polacrilex (Nicotine Polacrilex 2 Mg Gum) 2 mg BUCCAL Q1H PRN PRN Reason: Nicotine Cravings Last Admin: 02/10/22 15:23 Dose: 2 mg Documented by: Thiamine HCl (Thiamine Hcl 100 Mg Tablet) 200 mg PO DAILY [facility] Last Admin: 02/10/22 08:20 Dose: 200 mg Documented by: Allergies Allergies Allergy/AdvReac Type Severity Reaction Status Date / Time fish derived [FISH] Allergy Unknown UNKNOWN - Verified 01/05/22 21:22 NOT ANAPHYLAXIS PER PATIENT trazodone AdvReac Severe priapr Verified 02/06/22 12:53 Assessment & Plan Assessment & Plan (1) PTSD (post-traumatic stress disorder): Status: Acute Code(s): F43.10 - Post-traumatic stress disorder, unspecified (2) Alcohol use disorder, moderate, dependence: Status: Acute Code(s): F10.20 - Alcohol dependence, uncomplicated (3) Opioid use disorder: Status: Acute Code(s): F11.90 - Opioid use, unspecified, uncomplicated (4) Stimulant use disorder: Status: Acute Code(s): F15.90 - Other stimulant use, unspecified, uncomplicated Plan Pt is a 41 yo with hx of PTSD, polysubstance abuse/dependence, anti- social personality disorder and numerous arrests/incarcerations who presents detoxing from alcohol and opiates and SI. Patient endorses feeling depressed and tired of the cycle of relapse with substance abuse. He also endorses ongoing chronic PTSD symptoms. 02/06 patient continues to have withdrawal symptoms; aligner typewriter agrees to start Adderall as patient is emphatic that this medication is what helps some stay stable and want to do the right things. There is some concern that patient u ses inpatient admissions to refill some of his prescriptions. Home Health Travel Pt explained (and Patient understands) there will be limitations when writing an outpatient script and that subsequent scripts will not be given if he misses outpt appointment being set up by tx Team. Patient's goal is to get in to the [facility], a dual diagnosis [place] treatment program. Home Health Travel Pt discussed this and patient agrees and understands that he will need to pursue this with his outpatient [facility] providers. Patient agrees to trial of Prozac, or having reviewed risks/side effects with patient, for PTSD symptoms. He says he was on Zoloft as a child but does not remember anything about it. Patient asks for Benadryl for sleep 02/07 withdrawal getting mild; mood better and no SI. tolerating meds 02/08 No changes to med regimen, scoring lower on CIWA 02/09: will increase bedtime clonidine to 0.2 mg QHS for sleep and nightmares. 02/10 patient reports his mood is good and remains without any SI; withdrawal complete. He is tolerating medications well and feels that Prozac is helping and he can notice the change in his mood and disposition. is future oriented and has plans to attend his [facility] appointments and more directly deal with history of trauma. Patient is ready for discharge tomorrow and will either stay at his brother's or prison until he can hopefully get into homeless program at the [facility]. patient has remained in good behavioral and impulse control throughout his stay on the unit. He is not in imminent risk of harm to self or others and his request for discharge appropriate and honored. Will give patient prescriptions to get him to his outpatient appointment, which aligner typewriter and social service technician both co nfirmed on 02/18/2022 PLAN: CV q15min checks detox complete Continue Suboxone 12/3 daily and 8/1mg afternoon Continue Prozac 10mg daily for ptsd/depression; may increase Continue Benadry 100mg qhs for insomnia + exra prn Continue Adderall XR 30mg for ADHD symptoms; will give outpatient script but w ill do it for short durations and only until outpatient provider appointment; patient understands that if for any reason this outpatient appointment is missed, that will be no subsequent outpatient scripts given Continue Gabapentin 1200mg TID (which was RE-started by admitting provider) Continue Clonidine 0.1mg AM and 0.2 mg qhs Social work set up outpatient appointment with psychiatric provider at the [facility] I spent minutes with the patient and/or on the patient floor today, greater than?50% of which was spent counseling/coordinating care. Patient educated on: diagnosis, medication risk/benefits, substance abuse and therapeutic strategies Informed Consent: understands Reason for contiued inpatient stay Substantial Risk for: stable for discharge
[2022-02-10] MEDS: Buprenorphine/Naloxone 8/2 mg FILM 1 FILM SUBLINGUAL (17:26)
[2022-02-10 20:14] VITALS: BP 142/84; PULSE 101; RESP 16; TEMP 36.6; O2SAT 98
[2022-02-10] MEDS: diphenhydrAMINE HCL 25 MG TABLET 100 MG PO (20:30)
[2022-02-10] MEDS: cloNIDine HCL 0.2 MG TABLET PO (20:31)
[2022-02-11] MEDS: Gabapentin 400 MG CAPSULE 1200 MG PO (08:14)
[2022-02-11] MEDS: Buprenorphine/Naloxone 12/3 mg FILM 1 FILM SUBLINGUAL (08:14)
[2022-02-11] MEDS: Thiamine HCL 100 MG TABLET 200 MG PO (08:15)
[2022-02-11] MEDS: Dextroamphetamine/Amphetamine XR 10 MG CAP.ER.24H 30 MG PO (08:15)
[2022-02-11] MEDS: FLUoxetine HCl 10 MG CAPSULE PO (08:16)
[2022-02-11] MEDS: cloNIDine HCL 0.1 MG TABLET PO (08:16)
[2022-02-11] MEDS: Nicotine 21 MG PATCH.TD24 TRANSDERMA (08:16)
--- NOTE | 2022-02-11 09:26 | P.DS_ITS ---
DS: Providers Provider Date of Service: 02/11/22 Date of admission: 02/04/22 15:33 Date of discharge: 02/11/22 Primary care physician: Unknown Physician Attending physician on admission: Jose Ornelas Attending physician on discharge: Jose Ornelas DS: Diagnosis Discharge Diagnosis (1) PTSD (post-traumatic stress disorder): Status: Acute (2) Alcohol use disorder, moderate, dependence: Status: Resolved (3) Opioid use disorder: Status: Acute (4) Stimulant use disorder: Status: Acute DS: Medications Discharge Medications Home Medications: Previous Rx's Medication Instructions Recorded buprenorphine 12 mg-naloxone 3 mg 1 film SUBLINGUAL DAILY 7 Days #7 02/11/22 sublingual film (Suboxone) ea buprenorphine 8 mg-naloxone 2 mg 1 film SUBLINGUAL DAILY@1700 8 02/11/22 sublingual film (Suboxone) Days #8 ea clonidine HCl 0.1 mg tablet See Rx Instructions .ROUTE 02/11/22 .COMPLEX 7 Days #21 tab dextroamphetamine-amphetamine ER 30 mg PO DAILY 7 Days #7 cap 02/11/22 30 mg 24hr capsule,extend release diphenhydramine HCl 50 mg capsule 100 mg PO BEDTIME PRN 7 Days #7 cap 02/11/22 fluoxetine 10 mg capsule 10 mg PO DAILY 7 Days #7 cap 02/11/22 gabapentin 400 mg capsule 1,200 mg PO TID 8 Days #72 cap 02/11/22 nicotine (polacrilex) 2 mg gum 2 mg PO Q1H PRN 7 Days #20 ea 02/11/22 nicotine 21 mg/24 hr daily 1 patch TOPICAL DAILY PRN 7 Days 02/11/22 transdermal patch #7 ea thiamine HCl (vitamin B1) 100 mg 200 mg PO DAILY 7 Days #14 tab 02/11/22 tablet Mental Status Exam Mental Status Exam Narrative: Pt is alert and oriented; behavior is cooperative, calm; patient is not in distress; dressed in casual attire, clean shaven with adequate hygiene; mood is described as good and affect congruent, appropriate;? eye contact appropriate; Speech is normal rate, volume and prosody and not pressured; no psychomotor agitation/retardation present; thought process is organized and goal directed; Thought content is on pursuing treatment at [place]; otherwise pertinent to relevant topics and without any delusional content, paranoid ideations or grandiosity; no SI; no HI. There is no evidence of perceptual disturbance. ?Patients insight and judgment appear intact. DS: Summary Hospital Course Hospital Course: Pt is a 41 yo with hx of PTSD, polysubstance abuse/dependence, anti- social personality disorder and numerous arrests/incarcerations who presents detoxing from alcohol and opiates and SI.? Patient endorses feeling depressed and tired of the cycle of relapse with substance abuse.? He also endorses ongoing chronic PTSD symptoms. On admission, patient reported depression and SI however both these quickly resolved. He continued to have alcohol withdrawal symptoms which were treated with benzos. He was continued on Suboxone 12/3 daily and 8/1mg afternoon. Patient asks for Adderall to be restarted. He is emphatic that this medication is what helps some stay stable and want to do the right things. There is some concern that patient uses inpatient admissions to refill some of his prescriptions.? [employer]is [employer] Attendant explained (and Patient understands) there will be limitations when writing an outpatient script and that subsequent scripts will not be given if he misses outpt appointment being set up by tx Team.? Patient's goal is to get in to the [facility], a dual diagnosis [place] treatment program.? [employer] Attendant discussed this and patient agrees and understands that he will need to pursue this with his outpatient [facility] providers. Patient agrees to trial of Prozac, or having reviewed risks/side effects with patient, for PTSD symptoms.? He says he was on Zoloft as a child but does not remember anything about it.? Patient asks for Benadryl for sleep. Patient remained without any SI and withdrawal completed without incident. Clonidine used to q.h.s. for sleep and nightmares which patient said was helpful.? He tolerated medications well and feels that Prozac is helping and he can notice the change in his mood and disposition.? Patient reports he is ready for discharge tomorrow and will either stay at his brother's or jail until he can hopefully get into homeless program at the [place]. He is future oriented and has plans to attend his [facility] appointments and more directly deal with history of t rauma.? Patient could be demanding at times but generally remained appropriate with peers and staff and demonstrated impulse control throughout his stay on the unit.? He is not in imminent risk of harm to self or others and his request for discharge appropriate and honored.? Time spent discussing smoking cessation with patient: 3 to 10 minutes Status at Discharge Functional status at discharge: independent ambulation Overall status at discharge: patient is back to baseline Time Spent with Patient Time attestation: Total time spent providing and/or coordinating discharge services: Time spent: Greater than 30 minutes Discharge Plan Discharge Patient Disposition: Assisted Discharge Diagnosis: PTSD, chronic with acute exacerbation Referrals: Psychiatric Prescriber: Dr. Allison [Other] - 02/18/22 10:30 am (This is a video appointment that will be conducted at the [facility] [place] [facility] on the [facility]) Mental Health Clinic: Dr. Jennings [Other] - 02/19/22 2:00 pm (This appointment is in-office at the clinic) Mental Health Clinic: Dr. Jennings [Other] - 02/26/22 11:30 am (This appointment is in-office at the [facility]: room 1252) [facility] [Other] - 1 Week (PT. HAS NO PCP . PT REFERRED TO [facility]) Discharge Medications: New diphenhydramine HCl 50 mg capsule 100 mg PO BEDTIME PRN (Reason: sleep) 7 Days Qty: 7 0RF dextroamphetamine-amphetamine 30 mg capsule,extended release 24hr 30 mg PO DAILY 7 Days Qty: 7 0RF fluoxetine 10 mg Capsule 10 mg PO DAILY 7 Days Qty: 7 0RF gabapentin 400 mg Capsule 1,200 mg PO TID 8 Days Qty: 72 0RF Rx Instructions: fill script for 8 days (discard script for 7 days) Continued nicotine (polacrilex) 2 mg gum 2 mg PO Q1H PRN (Reason: Nicotine Cravings) 7 Days Qty: 20 0RF Changed clonidine HCl 0.1 mg tablet See Rx Instructions .ROUTE .COMPLEX 7 Days Qty: 21 0RF Rx Instructions: take 1 tab in the morning and take 2 tabs at bedtime thiamine HCl (vitamin B1) 100 mg tablet 200 mg PO DAILY 7 Days Qty: 14 0RF nicotine 21 mg/24 hr patch 24 hour 1 patch topical DAILY PRN (Reason: nicotine cravings) 7 Days Qty: 7 0RF Rx Instructions: remove at bedtime buprenorphine-naloxone [Suboxone] 8-2 mg film 1 film sublingual DAILY@1700 8 Days Qty: 8 0RF buprenorphine-naloxone [Suboxone] 12-3 mg film 1 film sublingual DAILY 7 Days Qty: 7 0RF Discontinued gabapentin 400 mg capsule 3 cap PO TID 0RF Discharge Orders: Discharge Order (Routine); Ordered 02/11/22 Ordered By: Jose Ornelas Diet: regular diet Activity on Discharge: As tolerated Stand Alone Forms: Patient Portal Discharge page, Community Support Care Plan Goals: Maintain mood and safe behaviors Take medications as prescribed Continue to pursue sobriety Practice coping skills Continue with outpatient providers and reach out to them as needed Health Concerns: Mood stability and behaviors Sobriety Plan of Treatment: Follow up with your PCP, psychiatric provider and other outpatient providers regarding above concerns Assessment: Risk assessment at time of discharge:? Patient was interviewed prior to discharge and found to be fully oriented and without any SI or HI. Patient has insight and demonstrates good judgment in terms of wanting to pursue treatment. Patient is not in imminent risk of harm to self or others and has a safety plan that includes presenting to the closest ER or calling 911 if feeling unsafe.? Patient has been observed closely by nursing and unit staff throughout admission; patient has not engaged in any behaviors that suggest dangerousness to self or others and has demonstrated appropriate behaviors and impulse control. Discharge Date/Time: 02/11/22 10:40
[2022-02-11] MEDS: Nicotine Polacrilex 2 MG GUM BUCCAL (10:35)
== END 2022-02-11 10:40 | disposition home or self-care (01) | DRG 755 ==
LOC: HO.ED 07:59 → HO.PM5 16:26
PROVIDERS: Internal Medicine; Admitting Provider Psychiatry & Neurology Psychiatry; Emergency Provider Emergency Medicine Emergency Medical Services; Visit Provider Psychiatry & Neurology Psychiatry
DX: F43.10 Post-traumatic stress disorder, unspecified (principal); R45.851 Suicidal ideations; F10.20 Alcohol dependence, uncomplicated; F11.20 Opioid dependence, uncomplicated; F17.210 Nicotine dependence, cigarettes, uncomplicated; F15.10 Other stimulant abuse, uncomplicated; Z71.6 Tobacco abuse counseling; Z91.410 Personal history of adult physical and sexual abuse; Z20.822 Contact with and (suspected) exposure to COVID-19; Z59.02 Unsheltered homelessness; Z91.013 Allergy to seafood; Z79.899 Other long term (current) drug therapy
CPT/HCPCS: 80053; 80307; 81003; 82077; 85025; 87635; 93005; 99285; Q0163

== ENCOUNTER 2022-04-04 04:47 | Emergency (ER) | payer MEDICAID, SELFPAY ==
--- NOTE | ~2022-04-04 | US_ITS ---
EXAMINATION: US VENOUS WITH DOPPLER UPPER EXTREMITY, LEFT CLINICAL INFORMATION: Left upper extremity abscess and swelling. COMPARISON: None TECHNIQUE: Ultrasound of the upper extremity is performed using compression sonography and color and pulse Doppler flow with assessment of augmentation of flow. There is also imaging and Doppler assessment of the jugular and subclavian veins. Spectral analysis with color-flow imaging is performed. FINDINGS: Respiratory variation, normal compression, and augmented flow are noted throughout the upper extremity including the axillary, brachial, cubital, and radial and ulnar veins. There is normal flow in the internal jugular and subclavian veins. There is no visible deep or superficial thrombophlebitis. If the patient's symptoms progress, a followup ultrasound in 5 -7 days might be of value to exclude proximal propagation from a nonvisualized distal arm vein. US/US venous duplex UE LT IMPRESSION: No DVT demonstrated in the left upper extremity.
[2022-04-04 05:05] VITALS: BP 155/94; PULSE 95; RESP 22; TEMP 36.8; O2SAT 95; BMI 25.1
[2022-04-04] MEDS: Ibuprofen 600 MG TABLET PO ×2 (05:30→07:51)
[2022-04-04 05:38] VITALS: BP 172/68; PULSE 89; RESP 20; O2SAT 94
[2022-04-04 05:52] LABS: Basophils Absolute Auto 0.1 X10*3/uL (0.0-0.2); Basophils Percent Auto 0.6 % (0-2); Eosinophils Absolute Auto 0.2 X10*3/uL (0.0-0.4); Eosinophils Percent Auto 1.2 % (0-4); Hematocrit 31.8 % (42.0-52.0); Imm Gran Abs Auto 0.06 X10*3/uL (0.00-0.03); Imm Gran Pct Auto 0.4 % (0.0-0.4); Lymphocytes Absolute Auto 2.9 X10*3/uL (1.2-4.9); Lymphocytes Percent Auto 21.2 % (20-40); MANUAL DIFF FLAG SCAN; Mean Corpuscular HGB Conc 31.4 g/dl (31.0-36.0); Mean Corpuscular Hemoglobin 21.3 pg (27.0-33.0); Mean Corpuscular Volume 67.8 fL (80.0-98.0); Mean Platelet Volume 9.9 fL (9.4-12.4); Monocytes Absolute Auto 1.7 X10*3/uL (0.1-1.2); Monocytes Percent Auto 12.3 % (2-11); Neutrophils Percent Auto 64.3 % (45-73); Platelet Count 453 X10*3/uL (160-400); Red Blood Count 4.69 X10*6/uL (4.60-5.80); Red Cell Distribution Width 16.3 % (11.0-16.0); SCAN SMEAR FLAG 1; White Blood Count 13.9 X10*3/uL (4.8-10.8)
[2022-04-04 05:55] LABS: Lactic Acid 1.4 mmol/L (0.5-2.0)
[2022-04-04 06:01] LABS: Alanine Aminotransferase 57 U/L (0-40); Albumin Level 3.8 g/dL (3.5-5.0); Alkaline Phosphatase 103 U/L (39-117); Anion Gap 13 (12-20); Aspartate Amino Transferase 70 U/L (5-37); Bilirubin Total 0.8 mg/dL (0.0-1.0); Blood Urea Nitrogen 6 mg/dL (9-16); Calcium 8.7 mg/dL (8.4-10.2); Carbon Dioxide 27 mmol/L (22-29); Chloride 100 mmol/L (96-108); Creatinine Clr Calc Pharmacy 129.7; Estimated Glomerular Filt Rate > 60; Glucose Random 115 mg/dL (60-115); Potassium 3.6 mmol/L (3.3-5.1); Sodium 136 mmol/L (135-145); Total Protein 7.2 g/dL (6.5-8.0)
--- NOTE | 2022-04-04 06:05 | PC.NURSE ---
this RN attempted to call [facility] on [facility] [place] ([phone]) to verify pt methadone dose. no answer x 3 attempts despite online hours stating they open at 0530. message left to call [facility] to verify dose.
[2022-04-04 06:36] LABS: SLIDE REVIEW VERIFIED
[2022-04-04 07:22] VITALS: BP 132/78; PULSE 89; RESP 17; TEMP 36.7; O2SAT 98
--- NOTE | 2022-04-04 07:37 | ED_ITS ---
HPI - Skin/Abscess/Foreign Bdy General Chief complaint: ETOH/Substance Use Stated complaint: heroine & alcohol withdrawal; arm infection Time Seen by Provider: 04/04/22 07:17 Source: patient Mode of arrival: ambulatory Limitations: no limitations History of Present Illness HPI narrative: 41-year-old male who presents emergency department for evaluation of an abscess of his left biceps. Patient has a history heroin use disorder and he states that he is in a methadone program. He states he did injected into his left arm 7 days prior to evaluation. He states that he was seen at [facility] 3 days prior and had a small area of redness to his biceps which the provider nancy a blue line around but did not start him on antibiotics. States the area of redness is gotten larger and area is now more swollen. He states that has a constant, dull pain which is 8/10 in the area of swelling. He states that he has been feeling sweaty, fatigued and has lost his appetite. The patient is in a methadone program but he states that he overslept yesterday and missed his methadone dose. He denied fever but he did experience chills. He has had rhinorrhea. He denied sore throat, cough, chest pain, shortness of breath, dyspnea on exertion, nausea, vomiting or diarrhea. The patient did tell the nurse that he felt like dying but he does not feel like harming himself, denies suicidal or homicidal ideation. complaint: abscess/boil Onset (ago): day(s) (7) Tetanus up to date: unsure (Greater than 5 years prior) Location: LUE Severity: moderate Severity scale (1-10): 8 Quality: stabbing Pain Consistency: constant Relieving factors: none Exacerbating factors: none Context: IVDA (Injected into the left biceps area 7 days prior) Associated symptoms: chills and other Treatments prior to arrival: none Related Data Home Medications Medication Instructions Recorded Confirmed methadone 10 mg/mL oral concentrate 70 mg PO DAILY 04/04/22 04/04/22 Previous Rx's Medication Instructions Recorded buprenorphine 12 mg-naloxone 3 mg 1 film SUBLINGUAL DAILY 7 Days #7 02/11/22 sublingual film (Suboxone) ea buprenorphine 8 mg-naloxone 2 mg 1 film SUBLINGUAL DAILY@1700 8 02/11/22 sublingual film (Suboxone) Days #8 ea clonidine HCl 0.1 mg tablet See Rx Instructions .ROUTE 02/11/22 .COMPLEX 7 Days #21 tab dextroamphetamine-amphetamine ER 30 mg PO DAILY 7 Days #7 cap 02/11/22 30 mg 24hr capsule,extend release diphenhydramine HCl 50 mg capsule 100 mg PO BEDTIME PRN 7 Days #7 cap 02/11/22 fluoxetine 10 mg capsule 10 mg PO DAILY 7 Days #7 cap 02/11/22 gabapentin 400 mg capsule 1,200 mg PO TID 8 Days #72 cap 02/11/22 nicotine (polacrilex) 2 mg gum 2 mg PO Q1H PRN 7 Days #20 ea 02/11/22 nicotine 21 mg/24 hr daily 1 patch TOPICAL DAILY PRN 7 Days 02/11/22 transdermal patch #7 ea thiamine HCl (vitamin B1) 100 mg 200 mg PO DAILY 7 Days #14 tab 02/11/22 tablet cephalexin 500 mg capsule 500 mg PO QID 7 Days #28 cap 04/04/22 doxycycline hyclate 100 mg tablet 100 mg PO Q12H 7 Days #14 tab 04/04/22 ibuprofen 600 mg tablet 600 mg PO Q6H #30 tab 04/04/22 Allergies Allergy/AdvReac Type Severity Reaction Status Date / Time fish derived [FISH] Allergy Unknown UNKNOWN - Verified 01/05/22 21:22 NOT ANAPHYLAXIS PER PATIENT trazodone AdvReac Severe priapr Verified 02/06/22 12:53 Review of Systems Review of Systems: Yes all other systems are reviewed and are negative [facility] Past Medical History [facility] Narrative: Past medical history: PTSD, hepatitis-C, polysubstance use disorder, alcohol use disorder. Social history: He smokes 1/2 pack of cigarettes per day times 25 years. He states that he drinks 30 nips of alcohol per day. He states that he uses injects heroin. Medical History Hep C w/o coma, chronic Social History Social History Household Members: None Housing: Homeless Do you presently have visiting nurse or other home services: No Alcohol intake: current Alcohol intake frequency: 3 or more drinks per day Alcohol type: hard liquor Patient Tobacco Use Status: Current everyday Tobacco user Tobacco use type: Cigarette Cigarette Packs Per Day: 2 Cigarettes Per Day: 40.0 Years Smoked: 25 e-Cigarette/Vaping Use: Currently Using Second Hand Smoke Exposure: No Substance Use Type: Crack/Cocaine, Heroin, Opiates and Painkillers Advance Directives: No Advance Directives Information Provided: No service: Yes (served in the [employer]) Sexual orientation: Did not discuss Physical Exam Vital Signs: Vital Signs: Last Vital Signs Temp 97.7 F 04/04/22 10:44 Pulse 52 04/04/22 10:44 Resp 17 04/04/22 10:44 BP 137/76 04/04/22 10:44 Pulse Ox 96 04/04/22 10:44 BMI result Body Mass Index 25.1 Const: General: cooperative and no acute distress Orientation/consciousness: oriented to person and oriented to place Limitations: no limitations HEENT: Head: Yes normal to inspection, Yes normocephalic and Yes atraumatic Ears: external ears normal General nose exam: Normal external nose present Face and sinus: Yes normal facial exam Mouth: Normal oral and palatal mucosa present Throat: Yes posterior oropharynx normal Eyes: General: appearance normal, both eyes and all related structures Pupils: Equal, round and reactive pupils present Neck: Neck: Yes normal visual inspection, Yes no lymphadenopathy, Yes trachea midline and Yes supple Chest: Chest palpation & inspection: normal inspection of the chest and normal palpation of entire chest wall Resp: Effort & Inspection: normal respiratory effort and able to speak in complete sentences Auscultation: clear to auscultation bilaterally Cardio: Rate: regular rate Rhythm: regular rhythm Heart sounds: S1 normal heart sound present, S2 normal heart sound present and no murmurs GI: Inspection: Yes normal to inspection Palpation (GI): Soft to palpation, nontender and no guarding Auscultation: normal bowel sounds : General: Yes no CVA tenderness Back/Spine/Pelvis: Back: no CVA tenderness Skin: General skin exam: no rashes or lesions noted Neuro: General: oriented to person and oriented to place Cranial nerves: Yes CN's II-XII intact bilaterally and Yes Equal, round and reactive pupils present Cognition (Neuro): normal cognition Motor exam (neuro): 5/5 motor strength present throughout Extrem: Other: The patient has a 6 x 4 cm abscess to his left biceps which is warm to the touch. He does have swelling of both upper extremities most likely secondary to his injection drug use. Psych: Appearance: grossly normal Speech and movement: Normal speech and movement present Affect: normal affect Attitude: cooperative Thought process: Normal thought process present Thought content: Normal thought con tent present Course Course Course Narrative: 41-year-old male with a history injection drug use who injected into his left arm biceps area proximally 5 days prior who presents with a large abscess she bicep which requires incision and drainage. The patient is in a methadone clinic but he states that he missed his dose of methadone yesterday and today. He continues to use injection heroin . He also states that he drinks 30 minute site alcohol per day. Patient's vital signs did reveal an elevated respiratory rate of 22 and an elevated blood pressure of 155/94 otherwise were unremarkable. The patient does have a large abscess to his left bicep which needs to be incised and drained. We will contact the patient's methadone clinic to determine his methadone dose administered here in the emergency department. Laboratory evaluation and left upper extremity ultrasound be obtained to rule out DVT. 0748: Laboratory evaluation: Elevated WBC 50430, anemia with an H&H of 10 and 31. 0918: The patient tolerated the incision injuring packing procedure well. His dose of methadone was conformed at 70 mg daily and this was ordered . He was also ordered to get doxycycline 100 mg orally and Keflex 500 mg orally. He was seen by our care team and they are going to do a search to get into a detox pr ogram. 1123: The Doppler ultrasound of the right upper extremity is negative for DVT. The patient is feeling better after receiving his methadone dose. The care team did obtain a detox bed for the patient at [facility]. The patient's prescriptions will be sent to the [facility] and the patient will pick these medications up prior to going to the rehab center. I will also prescribe ibuprofen for his pain. MDM - Skin/Abscess/Foreign Bdy Lab Data Result diagrams: 04/04/22 05:38 04/04/22 05:38 Labs: Lab Results 04/04/22 04/04/22 04/04/22 Range/Units 05:38 05:38 05:38 WBC 13.9 H (4.8-10.8) X10*3/uL RBC 4.69 (4.60-5.80) X10*6/uL Hgb 10.0 L (14.0-18.0) g/dl Hct 31.8 L (42.0-52.0) % MCV 67.8 L (80.0-98.0) fL MCH 21.3 L (27.0-33.0) pg MCHC 31.4 (31.0-36.0) g/dl RDW 16.3 H (11.0-16.0) % Plt Count 453 H (160-400) X10*3/uL MPV 9.9 (9.4-12.4) fL Immature Gran % (Auto) 0.4 (0.0-0.4) % Neut % (Auto) 64.3 (45-73) % Lymph % (Auto) 21.2 (20-40) % [place] % (Auto) 12.3 H (2-11) % Eos % (Auto) 1.2 (0-4) % Baso % (Auto) 0.6 (0-2) % Lymph # (Auto) 2.9 (1.2-4.9) X10*3/uL [place] # (Auto) 1.7 H (0.1-1.2) X10*3/uL Eos # (Auto) 0.2 (0.0-0.4) X10*3/uL Baso # (Auto) 0.1 (0.0-0.2) X10*3/uL Abs Immat Gran (auto) 0.06 H (0.00-0.03) X10*3/uL Absolute Neuts (auto) 9.0 H (2.0-8.3) x10*3/uL Absolute Nucleated RBC 0.000 (0.0-0.012) X10*3/uL Nucleated RBC % (auto) 0.0 (0.0-0.2) /100WBC Smear Tech's Comments VERIFIED Sodium 136 (135-145) mmol/L Potassium 3.6 (3.3-5.1) mmol/L Chloride 100 (96-108) mmol/L Carbon Dioxide 27 (22-29) mmol/L Anion Gap 13 (12-20) BUN 6 L (9-16) mg/dL Creatinine 0.79 (0.5-1.4) mg/dL Estim Creat Clear Calc 129.7 Estimated GFR > 60 Random Glucose 115 (60-115) mg/dL Lactic Acid 1.4 (0.5-2.0) mmol/L Calcium 8.7 (8.4-10.2) mg/dL Total Bilirubin 0.8 (0.0-1.0) mg/dL AST 70 H (5-37) U/L ALT 57 H (0-40) U/L Alkaline Phosphatase 103 D (39-117) U/L Total Protein 7.2 (6.5-8.0) g/dL Albumin 3.8 (3.5-5.0) g/dL Procedures Abscess I/D Site: upper extremity Side (if applicable): left Sedation/analgesia: other (Ativan 2 mg orally) Local Anesthetic: lidocaine 1% Amount of anesthesia used (mL): 10 Technique: incised with blade ( #11 Blade Scalp) Amount of fluid expressed (mL): 60 Sent for culture/gram staining?: Yes Irrigation: No Packing used?: iodoform Complications: other (None) Discharge Plan Discharge Clinical Impression: Abscess of arm, left, Alcohol use disorder, severe, dependence, Opiate use, Opiate withdrawal Patient Disposition: Home, Self-Care Instructions: Abscess (ED) Additional Instructions: Your blood work [place] [address], this is due to the infection/abscess in your arm. Your blood work was otherwise unremarkable. The left biceps abscess was incised drained and packed with I order form gauze. This packing needs to stay in for 4 days and you can remove this by pulling on the and that is sticking out of your arm. If this packing falls out before 4 days it does not need to be replaced. Keep your left arm elevated Apply a heating pad or warm compress to the arm for 15 minutes 4 to 6 times a day to help increase the blood flow to the area and help the healing process. Take doxycycline 100 mg pills, 1 pill twice a day for 7 days. Take Keflex 500 mg pills, 1 pill 4 times a day for 7 days. Take ibuprofen 6 mg pills, 1 pills every 6 hours as needed for pain. You need to crab picker your medications at the [facility] on [facility] prior to going to the [facility] detox facility. Please return to the emergency department if your symptoms get worse or if you develop any symptoms that are concerning to you. Prescriptions: New cephalexin 500 mg capsule 500 mg PO QID 7 Days Qty: 28 0RF doxycycline hyclate 100 mg tablet 100 mg PO Q12H 7 Days Qty: 14 0RF ibuprofen 600 mg tablet 600 mg PO Q6H Qty: 30 0RF No Action methadone 10 mg/mL Concentrate 70 mg PO DAILY 0RF diphenhydramine HCl 50 mg capsule 100 mg PO BEDTIME PRN (Reason: sleep) 7 Days Qty: 7 0RF dextroamphetamine-amphetamine 30 mg capsule,extended release 24hr 30 mg PO DAILY 7 Days Qty: 7 0RF fluoxetine 10 mg Capsule 10 mg PO DAILY 7 Days Qty: 7 0RF clonidine HCl 0.1 mg tablet See Rx Instructions .ROUTE .COMPLEX 7 Days Qty: 21 0RF Rx Instructions: take 1 tab in the morning and take 2 tabs at bedtime nicotine (polacrilex) 2 mg gum 2 mg PO Q1H PRN (Reason: Nicotine Cravings) 7 Days Qty: 20 0RF thiamine HCl (vitamin B1) 100 mg tablet 200 mg PO DAILY 7 Days Qty: 14 0RF nicotine 21 mg/24 hr patch 24 hour 1 patch topical DAILY PRN (Reason: nicotine cravings) 7 Days Qty: 7 0RF Rx Instructions: remove at bedtime buprenorphine-naloxone [Suboxone] 8-2 mg film 1 film sublingual DAILY@1700 8 Days Qty: 8 0RF buprenorphine-naloxone [Suboxone] 12-3 mg film 1 film sublingual DAILY 7 Days Qty: 7 0RF gabapentin 400 mg Capsule 1,200 mg PO TID 8 Days Qty: 72 0RF Rx Instructions: fill script for 8 days (discard script for 7 days)
[2022-04-04] MEDS: cloNIDine HCL 0.2 MG TABLET PO (07:51)
[2022-04-04] MEDS: LORazepam 1 MG TABLET 2 MG PO (07:51)
[2022-04-04] MEDS: Lidocaine HCl 1 % MPF 5 ML VIAL INFILTRATI ×2 (08:03)
--- NOTE | 2022-04-04 09:03 | MHC.RECOVSUP ---
Recovery Support note: Patient is a 41 year old Filipino speaking male who presented to [facility] due to an abscess and interest in going to detox. Patient is currently on methadone, 70mg, through [facility] on [address]. Patient reports he has been drinking a lot and that he would like to go to detox. Patient unable to quantify daily consumption however reports he has been having over ten drinks a day. This curriculum writer will assist patient in referring to ATS facilities.
[2022-04-04] MEDS: Diphth,Pertus(ACell),Tet Adult 0.5 ML SYRINGE IM (09:46)
[2022-04-04] MEDS: cephALEXin 500 MG CAPSULE PO (09:46)
[2022-04-04 10:44] VITALS: BP 137/76; PULSE 52; RESP 17; TEMP 36.5; O2SAT 96
[2022-04-04] MEDS: methADONE HCl 20 MG/2 ML ORAL.CONC 70 MG PO (10:51)
--- NOTE | 2022-04-04 11:08 | MHC.RECOVSUP ---
Recovery Support note: Patient accepted to [facility] with an admission time of 1545. Patient will need to bring antibiotics and dressing supplies. Discussed case with ED physician. This remote mortgage underwriter will arrange transportation.
--- NOTE | 2022-04-04 13:43 | ECG_ITS ---
Test Reason : weakness Blood Pressure : / mmHG Vent. Rate : 088 BPM Atrial Rate : 088 BPM P-R Int : 130 ms QRS Dur : 092 ms QT Int : 382 ms P-R-T Axes : 066 065 001 degrees QTc Int : 462 ms Normal sinus rhythm Normal ECG When compared with ECG of 04-FEB-2022 13:44, No significant change was found Referred By: Armando Dougherty Electronically Signed By:BURAK TIMMONS
== END 2022-04-04 13:39 | disposition home or self-care (01) ==
PROVIDERS: Emergency Provider Emergency Medicine Emergency Medical Services
DX: L02.414 Cutaneous abscess of left upper limb (principal); F11.23 Opioid dependence with withdrawal; F10.20 Alcohol dependence, uncomplicated; Y90.9 Presence of alcohol in blood, level not specified; M79.622 Pain in left upper arm; F17.210 Nicotine dependence, cigarettes, uncomplicated
CPT/HCPCS: 10060; 36415; 80053; 83605; 85025; 87040; 87071; 87205; 90471; 90715; 93005; 93971; 99284

== ENCOUNTER 2022-04-20 09:42 | Inpatient (IN) | payer OTHER, MEDICAID, SELFPAY ==
--- NOTE | ~2022-04-20 | XR_ITS ---
EXAMINATION: XR CHEST CLINICAL INFORMATION: Low oxygen level and falls asleep. COMPARISON: Chest 01/04/2022 TECHNIQUE: Frontal view of the chest was obtained. FINDINGS: The lungs are well-expanded and clear. The heart size and pulmonary vascularity is normal. No gross bony abnormality seen XR/XR chest 1V IMPRESSION: Unremarkable chest exam.
[2022-04-20 09:57] VITALS: BP 147/96; BP 150/70; PULSE 51; PULSE 60; RESP 16; TEMP 36.7; O2SAT 100; O2SAT 97; BMI 26.5
--- NOTE | 2022-04-20 10:05 | ECG_ITS ---
Test Reason : MEDICAL CLEARANCE Blood Pressure : / mmHG Vent. Rate : 053 BPM Atrial Rate : 053 BPM P-R Int : 132 ms QRS Dur : 096 ms QT Int : 514 ms P-R-T Axes : 050 056 026 degrees QTc Int : 482 ms Sinus bradycardia with sinus arrhythmia RSR' or QR pattern in V1 suggests right ventricular conduction delay Minimal voltage criteria for LVH, may be normal variant ( Sokolow-Mas ) Prolonged QT Abnormal ECG When compared with ECG of 04-APR-2022 05:20, Vent. rate has decreased BY 35 BPM Referred By: Shonda Barraza Electronically Signed By:BURAK TIMMONS
--- NOTE | 2022-04-20 10:07 | ED_ITS ---
HPI - Psych General Chief Complaint: Psychiatric Symptoms <ALEIDA Piedra - Last Filed: 04/20/22 17:43> Stated Complaint: WITHDRAWAL SX FROM ETOH & OPIOIDS, SI <ALEIDA Piedra - Last Filed: 04/20/22 17:43> Time Seen by Provider: 04/20/22 10:04 <ALEIDA Piedra - Last Filed: 04/20/22 17:43> Source: patient and EMS <ALEIDA Piedra Last Filed: 04/20/22 17:43> Mode of arrival: EMS <ALEIDA Piedra Last Filed: 04/20/22 17:43> Limitations: no limitations <ALEIDA Piedra Last Filed: 04/20/22 17:43> History of Present Illness HPI Narrative: 41-year-old male with past medical history of PTSD, polysubstance abuse/dependence x 22 years which include use of heroin, benzos, alcohol consumption on a daily basis as much as 30 nips/vodka, antisocial personality disorder, numerous arrest/incarcerations, hepatitis-C diagnosed in 2012 without treatment, alcohol withdrawal seizures and 2 episodes of overdoses presenting to the emergency department via EMS with complaints of increased anxiety/depression/SI thoughts with plan to walk in front of traffic to kill himself. He reports that he is currently homeless and he lost his 1 year ago overall heroin overdose. He reports that his 15-year-old daughter is currently living with the grandmother and he is not sure how she is doing. Reports that he last used around 03:00 prior to arrival. He feels like he is currently withdrawing. He reports he has a headache and some nausea. Denies any fevers, chills, dizziness, neck pain/stiffness, trouble swallowing or breathing, nasal congestion/rhinorrhea, loss of taste or smell, vomiting, chest pain or shortness of breath, dyspnea on exertion, orthopnea, palpitations, paresthesias, shakes, abdominal pain, back pain, cough, flank pain, dysuria, hematuria, abnormal penile discharge, rashes, recent falls or trauma, recent travel or sick contacts or any other symptoms complaints or concerns at this time. <ALEIDA Piedra Last Filed: 04/20/22 17:43> MD complaint: suicidal ideation, feels depressed, anxiety, substance abuse and alcohol abuse <ALEIDA Piedra Last Filed: 04/20/22 17:43> Onset (ago): day(s) <ALEIDA Piedra Last Filed: 04/20/22 17:43> Duration: constant, changing over time and getting worse <ALEIDA Piedra Last Filed: 04/20/22 17:43> History of same: Yes <ALEIDA Piedra Last Filed: 04/20/22 17:43> Relieving factors: none <ALEIDA Piedra Last Filed: 04/20/22 17:43> Exacerbating factors: alcohol and drug use <ALEIDA Piedra Last Filed: 04/20/22 17:43> Context: recent alcohol abuse, recent drug abuse and significant life stressor (His of an overdose approximately 1 year ago and his 15-year-old daughter is living with the grandmother and patient does not know how she is doing) <ALEIDA Piedra Last Filed: 04/20/22 17:43> Associated psychiatric symptoms: depression, suicidal ideation and racing thoughts <ALEIDA Piedra Last Filed: 04/20/22 17:43> Associated symptoms: headache, nausea and other (Feels like he is going into alcohol withdrawal) <ALEIDA Piedra Last Filed: 04/20/22 17:43> Treatments prior to arrival: none <ALEIDA Piedra Last Filed: 04/20/22 17:43> If self harm: admits thoughts of self harm and has plan (To walk in front of traffic) <ALEIDA Piedra Last Filed: 04/20/22 17:43> Related Data Home Medications: Home Medications Medication Instructions Recorded Confirmed No Known Home Meds 04/21/22 04/21/22 <ALEIDA Piedra Last Filed: 04/20/22 17:43> Allergies/Adverse Reactions: Allergies Allergy/AdvReac Type Severity Reaction Status Date / Time fish derived [FISH] Allergy Unknown UNKNOWN - Verified 01/05/22 21:22 NOT ANAPHYLAXIS PER PATIENT trazodone AdvReac Severe priapr Verified 02/06/22 12:53 <ALEIDA Piedra Last Filed: 04/20/22 17:43> Review of Systems Review of Systems: Constitutional : No Fever, No Chills ENT/Mouth : No Ear Pain, No Nasal Congestion, No sore throat Eyes: No Eye Pain, No Swelling, No Redness Cardiovascular : No Chest Pain, No SOB Respiratory : No Cough, No Sputum, No Dyspnea Gastrointestinal : No ingestions, + Nausea, No Vomiting, No Diarrhea, No Hematochezia, No Melena Genitourinary : No Dysuria, No Urinary Frequency, No Hematuria Musculoskeletal : No Myalgias Skin : No Skin Lesions, No rash Neuro : No Weakness, No Numbness, No Paresthesias, No Dizziness, + Headache Psych : + Anxiety, + Depression, + SI, + thoughts of self injury, No HI, No AVH, Heme/Lymph: No Lymphadenopathy Endocrine : No Polyuria, No Polydipsia <ALEIDA Piedra - Last Filed: 04/20/22 17:43> Yes all other systems are reviewed and are negative <ALEIDA Piedra - Last Filed: 04/20/22 17:43> [facility] Past Medical History Attestation statement: The following information was validated with the patient. <ALEIDA Piedra - Last Filed: 04/20/22 17:43> Source: old records reviewed and nursing notes reviewed <ALEIDA Piedra - Last Filed: 04/20/22 17:43> Medical History: Medical History Hep C w/o coma, chronic <ALEIDA Piedra - Last Filed: 04/20/22 17:43> Surgical History: Surgical History History of surgery on arm <ALEIDA Piedra Last Filed: 04/20/22 17:43> Social History Social History: Social History Household Members: None Housing: Homeless Do you presently have visiting nurse or other home services: No Alcohol intake: current Alcohol intake frequency: 3 or more drinks per day Alcohol type: hard liquor Patient Tobacco Use Status: Current everyday Tobacco user Tobacco use type: Cigarette Cigarette Packs Per Day: 2 Cigarettes Per Day: 40.0 Years Smoked: 25 Smoked in Last 30 Days: Yes e-Cigarette/Vaping Use: Currently Using Second Hand Smoke Exposure: No Use of substances other than those prescribed or required for medical reasons: Yes Substance Use Type: Heroin Advance Directives: No Advance Directives Information Provided: No service: Yes (served in the [employer]) Sexual orientation: Did not discuss <ALEIDA Piedra - Last Filed: 04/20/22 17:43> Physical Exam Vital Signs: Vital Signs: Last Vital Signs Temp 98.5 F 04/20/22 16:56 Pulse 81 04/20/22 16:56 Resp 20 04/20/22 16:56 BP 147/93 H 04/20/22 16:56 Pulse Ox 95 04/20/22 16:56 BMI result Body Mass Index 26.5 vital signs have been reviewed as normal and appeared to be correct. Blood pressure 1467/96. Heart rate normal. Respiration rate normal. Temperature normal. Oxygen saturation normal. <ALEIDA Piedra - Last Filed: 04/20/22 17:43> Vital Signs: Last Vital Signs Temp 98.5 F 04/20/22 16:56 Pulse 81 04/20/22 16:56 Resp 20 04/20/22 16:56 BP 147/93 H 04/20/22 16:56 Pulse Ox 95 04/20/22 16:56 BMI result Body Mass Index 26.5 <Andressa Schultz MD - Last Filed: 04/21/22 03:17> Appearance: Alert. Oriented X3. No acute distress. Head: Normal external exam. Normocephalic. Atraumatic. No Vasquez signs noted. No raccoon eyes noted Eyes: PERRLA. EOMI. Conjunctiva and sclera normal. Eyelids normal. ENT: EAC normal. TM's Normal. Pharynx normal. Uvula midline. Moist mucous membranes. No trismus noted. No drooling noted. No muffled voice noted. Neck: Normal inspection. Neck supple. FROM. No adenopathy. Thyroid Normal. No meningeal signs. No neck mass noted. CVS: Normal heart rate and rhythm. Heart sound normal. No murmurs noted. Pulses normal throughout. Respiratory: No respiratory distress. Painless inspiration. Breath sounds normal. No wheezes/rales/rhonchi noted. Chest nontender. No accessory muscle usage noted or decreased air movement noted. Abdomen: Soft and nontender. Bowel sounds normal in all 4 quadrants. No distention noted. No organomegaly noted. No visible injury noted. Back: No CVA tenderness. Full range of motion noted. Skin: Skin warm and dry. Normal skin color. Normal skin turgor. No rashes/lesions/lacerations noted. Extremities: No lower extremity edema. Extremities exhibit normal range of motion. Extremities nontender. Neuro: Oriented X 3. No motor deficit. No sensory deficit. Reflexes normal. CN's II-XII intact bilaterally? Psych: Appearance grossly normal, well-kept, mental status normal, speech and movement normal, speech clear, patient appears very sad and anxious along with depressed. Is cooperative. Normal thought process. Normal thought content. Normal good insight. Judgment good. <ALEIDA Piedra - Last Filed: 04/20/22 17:43> Course Course Course Narrative: 10am - 41-year-old male with a PMHX of PTSD, polysubstance abuse/dependence x 22 years which include use of heroin, benzos, alcohol consumption on a daily basis as much as 30 nips/vodka, antisocial personality disorder, numerous arrest/incarcerations, hepatitis-C diagnosed in 2012 without treatment, alcohol withdrawal seizures and 2 episodes of overdoses presenting to the emergency department via EMS with complaints of increased anxiety/depression/SI thoughts with plan to walk in front of traffic to kill himself. He reports that he is currently homeless and he lost his 1 year ago overall heroin overdose. He reports that his 15-year-old daughter is currently living with the grandmother and he is not sure how she is doing. Reports that he last used around 03:00 prior to arrival. He feels like he is currently withdrawing. He reports he has a headache and some nausea. Plan: Will obtain labs, EKG, chest x-ray, urine drug screen, ethanol level, UA, COVID swab/influenza swab and re-eval. <ALEIDA Piedra - Last Filed: 04/20/22 17:43> Reevaluation(s) Reevaluation #1: - labs reviewed and patient mild baseline anemia similar compared to prior. BUN 8. AST/ALT 122/91 mildly and decreased when compared to prior although patient denies any abdominal pain. ETOH level 49. Otherwise all other labs are within normal limits. Patient negative for COVID and influenza. - EKG is sinus bradycardia with sinus arrhythmia with prolonged QT at 514 milliseconds otherwise no acute ischemic change are noted and similar compared to prior EKG 04/04/2022. - chest x-ray within normal limits no acute processes noted. - therefore patient is medically cleared and placed in Physician observation because the patient needs more time to be evaluated by crisis at this time he is neuro intact. No focal neuro deficits are noted. cv rrr. Lungs clear to auscultation. Abdomen is soft nontender. <ALEIDA Piedra - Last Filed: 04/20/22 17:43> Time: 12:31 <ALEIDA Piedra - Last Filed: 04/20/22 17:43> MDM - Psych MDM Narrative Medical decision making narrative: Patient evaluated by [facility]. Will admit patient for further evaluation. Patient is currently pending bed search. In stable condition. <Andressa Schultz MD - Last Filed: 04/21/22 03:17> Medical Records Attestation: I reviewed the patient's medical records. <ALEIDA Piedra - Last Filed: 04/20/22 17:43> Lab Data Attestation: I reviewed the patient's lab results. <ALEIDA Piedra - Last Filed: 04/20/22 17:43> Result diagrams: : 04/20/22 10:35 04/20/22 10:35 <ALEIDA Piedra - Last Filed: 04/20/22 17:43> Labs: Lab Results 04/20/22 04/20/22 04/20/22 Range/Units 10:35 10:35 10:35 WBC 5.6 (4.8-10.8) X10*3/uL RBC 4.96 (4.60-5.80) X10*6/uL Hgb 10.4 L (14.0-18.0) g/dl Hct 33.1 L (42.0-52.0) % MCV 66.7 L (80.0-98.0) fL MCH 21.0 L (27.0-33.0) pg MCHC 31.4 (31.0-36.0) g/dl RDW 16.0 (11.0-16.0) % Plt Count 344 (160-400) X10*3/uL MPV 9.5 (9.4-12.4) fL Immature Gran % (Auto) 0.4 (0.0-0.4) % Neut % (Auto) 55.9 (45-73) % Lymph % (Auto) 26.1 (20-40) % Wake % (Auto) 12.4 H (2-11) % Eos % (Auto) 4.1 H (0-4) % Baso % (Auto) 1.1 (0-2) % Lymph # (Auto) 1.5 (1.2-4.9) X10*3/uL Wake # (Auto) 0.7 (0.1-1.2) X10*3/uL Eos # (Auto) 0.2 (0.0-0.4) X10*3/uL Baso # (Auto) 0.1 (0.0-0.2) X10*3/uL Abs Immat Gran (auto) 0.02 (0.00-0.03) X10*3/uL Absolute Neuts (auto) 3.1 (2.0-8.3) x10*3/uL Absolute Nucleated RBC 0.000 (0.0-0.012) X10*3/uL Nucleated RBC % (auto) 0.0 (0.0-0.2) /100WBC Sodium 137 (135-145) mmol/L Potassium 4.4 D (3.3-5.1) mmol/L Chloride 99 (96-108) mmol/L Carbon Dioxide 28 (22-29) mmol/L Anion Gap 14 (12-20) BUN 8 L (9-16) mg/dL Creatinine 0.85 (0.5-1.4) mg/dL Estim Creat Clear Calc 116.8 Estimated GFR > 60 Random Glucose 91 (60-115) mg/dL Calcium 9.3 D (8.4-10.2) mg/dL Magnesium 1.9 (1.6-2.6) mg/dL Total Bilirubin 0.8 (0.0-1.0) mg/dL AST 122 H (5-37) U/L ALT 91 H (0-40) U/L Alkaline Phosphatase 106 (39-117) U/L Total Protein 7.6 (6.5-8.0) g/dL Albumin 4.0 (3.5-5.0) g/dL Lipase 23 (8-78) U/L Urine Color Urine Appearance Urine pH (5.0-8.0) Ur Specific [place] (1.005-1.025) Urine Protein (NEG-TRACE) MG/DL Urine Glucose (UA) (NEG) MG/DL Urine Ketones (NEG) MG/DL Urine Blood (NEG) Urine Nitrite (NEG) Ur Leukocyte Esterase (NEG) Urine Opiates Screen (Not Detect) Urine Fentanyl Screen (Not Detect) Ur Barbiturates Screen (Not Detect) Ur Phencyclidine Scrn (Not Detect) Ur Amphetamines Screen (Not Detect) U Benzodiazepines Scrn (Not Detect) Urine Cocaine Screen (Not Detect) U Marijuana (THC) Screen (Not Detect) Ethyl Alcohol 49 mg/dL COVID-19 ([facility]OY) (Negative) COVID-19 Clin Com Influenza Type A ([place]) (Negative) Influenza Type B ([place]) (Negative) Influenza A & B Note 04/20/22 04/20/22 04/20/22 Range/Units 11:04 11:05 16:38 WBC (4.8-10.8) X10*3/uL RBC (4.60-5.80) X10*6/uL Hgb (14.0-18.0) g/dl Hct (42.0-52.0) % MCV (80.0-98.0) fL MCH (27.0-33.0) pg MCHC (31.0-36.0) g/dl RDW (11.0-16.0) % Plt Count (160-400) X10*3/uL MPV (9.4-12.4) fL Immature Gran % (Auto) (0.0-0.4) % Neut % (Auto) (45-73) % Lymph % (Auto) (20-40) % Wake % (Auto) (2-11) % Eos % (Auto) (0-4) % Baso % (Auto) (0-2) % Lymph # (Auto) (1.2-4.9) X10*3/uL Wake # (Auto) (0.1-1.2) X10*3/uL Eos # (Auto) (0.0-0.4) X10*3/uL Baso # (Auto) (0.0-0.2) X10*3/uL Abs Immat Gran (auto) (0.00-0.03) X10*3/uL Absolute Neuts (auto) (2.0-8.3) x10*3/uL Absolute Nucleated RBC (0.0-0.012) X10*3/uL Nucleated RBC % (auto) (0.0-0.2) /100WBC Sodium (135-145) mmol/L Potassium (3.3-5.1) mmol/L Chloride (96-108) mmol/L Carbon Dioxide (22-29) mmol/L Anion Gap (12-20) BUN (9-16) mg/dL Creatinine (0.5-1.4) mg/dL Estim Creat Clear Calc Estimated GFR Random Glucose (60-115) mg/dL Calcium (8.4-10.2) mg/dL Magnesium (1.6-2.6) mg/dL Total Bilirubin (0.0-1.0) mg/dL AST (5-37) U/L ALT (0-40) U/L Alkaline Phosphatase (39-117) U/L Total Protein (6.5-8.0) g/dL Albumin (3.5-5.0) g/dL Lipase (8-78) U/L Urine Color Urine Appearance Urine pH (5.0-8.0) Ur Specific [place] (1.005-1.025) Urine Protein (NEG-TRACE) MG/DL Urine Glucose (UA) (NEG) MG/DL Urine Ketones (NEG) MG/DL Urine Blood (NEG) Urine Nitrite (NEG) Ur Leukocyte Esterase (NEG) Urine Opiates Screen POSITIVE H (Not Detect) Urine Fentanyl Screen POSITIVE H (Not Detect) Ur Barbiturates Screen Not Detected (Not Detect) Ur Phencyclidine Scrn Not Detected (Not Detect) Ur Amphetamines Screen Not Detected (Not Detect) U Benzodiazepines Scrn POSITIVE H (Not Detect) Urine Cocaine Screen POSITIVE H (Not Detect) U Marijuana (THC) Screen POSITIVE H (Not Detect) Ethyl Alcohol mg/dL COVID-19 (ELOY) Negative (Negative) COVID-19 Clin Com See Note Influenza Type A ([place]) Negative (Negative) Influenza Type B ([place]) Negative (Negative) Influenza A & B Note See Note 04/20/22 Range/Units 16:39 WBC (4.8-10.8) X10*3/uL RBC (4.60-5.80) X10*6/uL Hgb (14.0-18.0) g/dl Hct (42.0-52.0) % MCV (80.0-98.0) fL MCH (27.0-33.0) pg MCHC (31.0-36.0) g/dl RDW (11.0-16.0) % Plt Count (160-400) X10*3/uL MPV (9.4-12.4) fL Immature Gran % (Auto) (0.0-0.4) % Neut % (Auto) (45-73) % Lymph % (Auto) (20-40) % Wake % (Auto) (2-11) % Eos % (Auto) (0-4) % Baso % (Auto) (0-2) % Lymph # (Auto) (1.2-4.9) X10*3/uL Wake # (Auto) (0.1-1.2) X10*3/uL Eos # (Auto) (0.0-0.4) X10*3/uL Baso # (Auto) (0.0-0.2) X10*3/uL Abs Immat Gran (auto) (0.00-0.03) X10*3/uL Absolute Neuts (auto) (2.0-8.3) x10*3/uL Absolute Nucleated RBC (0.0-0.012) X10*3/uL Nucleated RBC % (auto) (0.0-0.2) /100WBC Sodium (135-145) mmol/L Potassium (3.3-5.1) mmol/L Chloride (96-108) mmol/L Carbon Dioxide (22-29) mmol/L Anion Gap (12-20) BUN (9-16) mg/dL Creatinine (0.5-1.4) mg/dL Estim Creat Clear Calc Estimated GFR Random Glucose (60-115) mg/dL Calcium (8.4-10.2) mg/dL Magnesium (1.6-2.6) mg/dL Total Bilirubin (0.0-1.0) mg/dL AST (5-37) U/L ALT (0-40) U/L Alkaline Phosphatase (39-117) U/L Total Protein (6.5-8.0) g/dL Albumin (3.5-5.0) g/dL Lipase (8-78) U/L Urine Color DK YELLOW Urine Appearance CLEAR Urine pH 8.0 (5.0-8.0) Ur Specific [place] 1.010 (1.005-1.025) Urine Protein TRACE (NEG-TRACE) MG/DL Urine Glucose (UA) NEG (NEG) MG/DL Urine Ketones NEG (NEG) MG/DL Urine Blood NEG (NEG) Urine Nitrite NEG (NEG) Ur Leukocyte Esterase NEG (NEG) Urine Opiates Screen (Not Detect) Urine Fentanyl Screen (Not Detect) Ur Barbiturates Screen (Not Detect) Ur Phencyclidine Scrn (Not Detect) Ur Amphetamines Screen (Not Detect) U Benzodiazepines Scrn (Not Detect) Urine Cocaine Screen (Not Detect) U Marijuana (THC) Screen (Not Detect) Ethyl Alcohol mg/dL COVID-19 ([facility]OY) (Negative) COVID-19 Clin Com Influenza Type A ([place]) (Negative) Influenza Type B ([place]) (Negative) Influenza A & B Note <ALEIDA Piedra - Last Filed: 04/20/22 17:43> Lab Results 04/20/22 04/20/22 04/20/22 Range/Units 10:35 10:35 10:35 WBC 5.6 (4.8-10.8) X10*3/uL RBC 4.96 (4.60-5.80) X10*6/uL Hgb 10.4 L (14.0-18.0) g/dl Hct 33.1 L (42.0-52.0) % MCV 66.7 L (80.0-98.0) fL MCH 21.0 L (27.0-33.0) pg MCHC 31.4 (31.0-36.0) g/dl RDW 16.0 (11.0-16.0) % Plt Count 344 (160-400) X10*3/uL MPV 9.5 (9.4-12.4) fL Immature Gran % (Auto) 0.4 (0.0-0.4) % Neut % (Auto) 55.9 (45-73) % Lymph % (Auto) 26.1 (20-40) % Wake % (Auto) 12.4 H (2-11) % Eos % (Auto) 4.1 H (0-4) % Baso % (Auto) 1.1 (0-2) % Lymph # (Auto) 1.5 (1.2-4.9) X10*3/uL Wake # (Auto) 0.7 (0.1-1.2) X10*3/uL Eos # (Auto) 0.2 (0.0-0.4) X10*3/uL Baso # (Auto) 0.1 (0.0-0.2) X10*3/uL Abs Immat Gran (auto) 0.02 (0.00-0.03) X10*3/uL Absolute Neuts (auto) 3.1 (2.0-8.3) x10*3/uL Absolute Nucleated RBC 0.000 (0.0-0.012) X10*3/uL Nucleated RBC % (auto) 0.0 (0.0-0.2) /100WBC Sodium 137 (135-145) mmol/L Potassium 4.4 D (3.3-5.1) mmol/L Chloride 99 (96-108) mmol/L Carbon Dioxide 28 (22-29) mmol/L Anion Gap 14 (12-20) BUN 8 L (9-16) mg/dL Creatinine 0.85 (0.5-1.4) mg/dL Estim Creat Clear Calc 116.8 Estimated GFR > 60 Random Glucose 91 (60-115) mg/dL Calcium 9.3 D (8.4-10.2) mg/dL Magnesium 1.9 (1.6-2.6) mg/dL Total Bilirubin 0.8 (0.0-1.0) mg/dL AST 122 H (5-37) U/L ALT 91 H (0-40) U/L Alkaline Phosphatase 106 (39-117) U/L Total Protein 7.6 (6.5-8.0) g/dL Albumin 4.0 (3.5-5.0) g/dL Lipase 23 (8-78) U/L Urine Color Urine Appearance Urine pH (5.0-8.0) Ur Specific [place] (1.005-1.025) Urine Protein (NEG-TRACE) MG/DL Urine Glucose (UA) (NEG) MG/DL Urine Ketones (NEG) MG/DL Urine Blood (NEG) Urine Nitrite (NEG) Ur Leukocyte Esterase (NEG) Urine Opiates Screen (Not Detect) Urine Fentanyl Screen (Not Detect) Ur Barbiturates Screen (Not Detect) Ur Phencyclidine Scrn (Not Detect) Ur Amphetamines Screen (Not Detect) U Benzodiazepines Scrn (Not Detect) Urine Cocaine Screen (Not Detect) U Marijuana (THC) Screen (Not Detect) Ethyl Alcohol 49 mg/dL COVID-19 ([facility]OY) (Negative) COVID-19 Clin Com Influenza Type A ([place]) (Negative) Influenza Type B ([place]) (Negative) Influenza A & B Note 04/20/22 04/20/22 04/20/22 Range/Units 11:04 11:05 16:38 WBC (4.8-10.8) X10*3/uL RBC (4.60-5.80) X10*6/uL Hgb (14.0-18.0) g/dl Hct (42.0-52.0) % MCV (80.0-98.0) fL MCH (27.0-33.0) pg MCHC (31.0-36.0) g/dl RDW (11.0-16.0) % Plt Count (160-400) X10*3/uL MPV (9.4-12.4) fL Immature Gran % (Auto) (0.0-0.4) % Neut % (Auto) (45-73) % Lymph % (Auto) (20-40) % Wake % (Auto) (2-11) % Eos % (Auto) (0-4) % Baso % (Auto) (0-2) % Lymph # (Auto) (1.2-4.9) X10*3/uL Wake # (Auto) (0.1-1.2) X10*3/uL Eos # (Auto) (0.0-0.4) X10*3/uL Baso # (Auto) (0.0-0.2) X10*3/uL Abs Immat Gran (auto) (0.00-0.03) X10*3/uL Absolute Neuts (auto) (2.0-8.3) x10*3/uL Absolute Nucleated RBC (0.0-0.012) X10*3/uL Nucleated RBC % (auto) (0.0-0.2) /100WBC Sodium (135-145) mmol/L Potassium (3.3-5.1) mmol/L Chloride (96-108) mmol/L Carbon Dioxide (22-29) mmol/L Anion Gap (12-20) BUN (9-16) mg/dL Creatinine (0.5-1.4) mg/dL Estim Creat Clear Calc Estimated GFR Random Glucose (60-115) mg/dL Calcium (8.4-10.2) mg/dL Magnesium (1.6-2.6) mg/dL Total Bilirubin (0.0-1.0) mg/dL AST (5-37) U/L ALT (0-40) U/L Alkaline Phosphatase (39-117) U/L Total Protein (6.5-8.0) g/dL Albumin (3.5-5.0) g/dL Lipase (8-78) U/L Urine Color Urine Appearance Urine pH (5.0-8.0) Ur Specific [place] (1.005-1.025) Urine Protein (NEG-TRACE) MG/DL Urine Glucose (UA) (NEG) MG/DL Urine Ketones (NEG) MG/DL Urine Blood (NEG) Urine Nitrite (NEG) Ur Leukocyte Esterase (NEG) Urine Opiates Screen POSITIVE H (Not Detect) Urine Fentanyl Screen POSITIVE H (Not Detect) Ur Barbiturates Screen Not Detected (Not Detect) Ur Phencyclidine Scrn Not Detected (Not Detect) Ur Amphetamines Screen Not Detected (Not Detect) U Benzodiazepines Scrn POSITIVE H (Not Detect) Urine Cocaine Screen POSITIVE H (Not Detect) U Marijuana (THC) Screen POSITIVE H (Not Detect) Ethyl Alcohol mg/dL COVID-19 ([facility]) Negative (Negative) COVID-19 Clin Com See Note Influenza Type A ([place]) Negative (Negative) Influenza Type B ([place]) Negative (Negative) Influenza A & B Note See Note 04/20/22 Range/Units 16:39 WBC (4.8-10.8) X10*3/uL RBC (4.60-5.80) X10*6/uL Hgb (14.0-18.0) g/dl Hct (42.0-52.0) % MCV (80.0-98.0) fL MCH (27.0-33.0) pg MCHC (31.0-36.0) g/dl RDW (11.0-16.0) % Plt Count (160-400) X10*3/uL MPV (9.4-12.4) fL Immature Gran % (Auto) (0.0-0.4) % Neut % (Auto) (45-73) % Lymph % (Auto) (20-40) % Wake % (Auto) (2-11) % Eos % (Auto) (0-4) % Baso % (Auto) (0-2) % Lymph # (Auto) (1.2-4.9) X10*3/uL Wake # (Auto) (0.1-1.2) X10*3/uL Eos # (Auto) (0.0-0.4) X10*3/uL Baso # (Auto) (0.0-0.2) X10*3/uL Abs Immat Gran (auto) (0.00-0.03) X10*3/uL Absolute Neuts (auto) (2.0-8.3) x10*3/uL Absolute Nucleated RBC (0.0-0.012) X10*3/uL Nucleated RBC % (auto) (0.0-0.2) /100WBC Sodium (135-145) mmol/L Potassium (3.3-5.1) mmol/L Chloride (96-108) mmol/L Carbon Dioxide (22-29) mmol/L Anion Gap (12-20) BUN (9-16) mg/dL Creatinine (0.5-1.4) mg/dL Estim Creat Clear Calc Estimated GFR Random Glucose (60-115) mg/dL Calcium (8.4-10.2) mg/dL Magnesium (1.6-2.6) mg/dL Total Bilirubin (0.0-1.0) mg/dL AST (5-37) U/L ALT (0-40) U/L Alkaline Phosphatase (39-117) U/L Total Protein (6.5-8.0) g/dL Albumin (3.5-5.0) g/dL Lipase (8-78) U/L Urine Color DK YELLOW Urine Appearance CLEAR Urine pH 8.0 (5.0-8.0) Ur Specific [place] 1.010 (1.005-1.025) Urine Protein TRACE (NEG-TRACE) MG/DL Urine Glucose (UA) NEG (NEG) MG/DL Urine Ketones NEG (NEG) MG/DL Urine Blood NEG (NEG) Urine Nitrite NEG (NEG) Ur Leukocyte Esterase NEG (NEG) Urine Opiates Screen (Not Detect) Urine Fentanyl Screen (Not Detect) Ur Barbiturates Screen (Not Detect) Ur Phencyclidine Scrn (Not Detect) Ur Amphetamines Screen (Not Detect) U Benzodiazepines Scrn (Not Detect) Urine Cocaine Screen (Not Detect) U Marijuana (THC) Screen (Not Detect) Ethyl Alcohol mg/dL COVID-19 ([facility]) (Negative) COVID-19 Clin Com Influenza Type A ([facility]) (Negative) Influenza Type B ([place]) (Negative) Influenza A & B Note <Andressa Schultz MD - Last Filed: 04/21/22 03:17> Discharge Plan Discharge Clinical Impression: Suicidal ideation, Depression, Acute anxiety, Active substance abuse, Alcohol dependence <ALEIDA Piedra - Last Filed: 04/20/22 17:43> Patient Disposition: Still a Patient <ALEIDA Piedra - Last Filed: 04/20/22 17:43> Prescriptions: No Action No Known Home Meds 0RF <ALEIDA Piedra - Last Filed: 04/20/22 17:43>
[2022-04-20 10:37] LABS: MANUAL DIFF FLAG NO
[2022-04-20 10:51] LABS: Basophils Absolute Auto 0.1 X10*3/uL (0.0-0.2); Basophils Percent Auto 1.1 % (0-2); Eosinophils Absolute Auto 0.2 X10*3/uL (0.0-0.4); Eosinophils Percent Auto 4.1 % (0-4); Hematocrit 33.1 % (42.0-52.0); Hemoglobin 10.4 g/dl (14.0-18.0); Imm Gran Abs Auto 0.02 X10*3/uL (0.00-0.03); Imm Gran Pct Auto 0.4 % (0.0-0.4); Lymphocytes Absolute Auto 1.5 X10*3/uL (1.2-4.9); Lymphocytes Percent Auto 26.1 % (20-40); Mean Corpuscular HGB Conc 31.4 g/dl (31.0-36.0); Mean Corpuscular Volume 66.7 fL (80.0-98.0); Mean Platelet Volume 9.5 fL (9.4-12.4); Monocytes Absolute Auto 0.7 X10*3/uL (0.1-1.2); Monocytes Percent Auto 12.4 % (2-11); Neutrophils Absolute Auto 3.1 x10*3/uL (2.0-8.3); Neutrophils Percent Auto 55.9 % (45-73); Platelet Count 344 X10*3/uL (160-400); Red Blood Count 4.96 X10*6/uL (4.60-5.80); White Blood Count 5.6 X10*3/uL (4.8-10.8)
[2022-04-20] MEDS: Acetaminophen 325 MG TABLET 975 MG PO (10:53)
--- NOTE | 2022-04-20 10:57 | PC.NURSE ---
pt put on 2l oxygen because ever time the pt falls asleep his oxygen drops down to 89%, ls clear
[2022-04-20 10:58] VITALS: BP 128/76; PULSE 45; PULSE 47; RESP 12; RESP 18; O2SAT 89; O2SAT 98
[2022-04-20] MEDS: methADONE HCl 20 MG/2 ML ORAL.CONC 80 MG PO (10:59)
[2022-04-20 11:06] LABS: Ethanol 49 mg/dL
[2022-04-20 11:11] LABS: Alanine Aminotransferase 91 U/L (0-40); Alkaline Phosphatase 106 U/L (39-117); Anion Gap 14 (12-20); Aspartate Amino Transferase 122 U/L (5-37); Bilirubin Total 0.8 mg/dL (0.0-1.0); Blood Urea Nitrogen 8 mg/dL (9-16); Calcium 9.3 mg/dL (8.4-10.2); Carbon Dioxide 28 mmol/L (22-29); Chloride 99 mmol/L (96-108); Creatinine Clr Calc Pharmacy 116.8; Estimated Glomerular Filt Rate > 60; Glucose Random 91 mg/dL (60-115); Lipase 23 U/L (8-78); Magnesium 1.9 mg/dL (1.6-2.6); Potassium 4.4 mmol/L (3.3-5.1); Sodium 137 mmol/L (135-145); Total Protein 7.6 g/dL (6.5-8.0)
[2022-04-20 11:23] LABS: IDNOW Serial# 9DB6401D; Influenza A Negative (Negative); Influenza B2 Negative (Negative)
[2022-04-20 11:23] LABS: COVID-19 Test Negative (Negative)
[2022-04-20 13:14] VITALS: BP 141/77; PULSE 48; RESP 13; O2SAT 99
[2022-04-20] MEDS: chlordiazePOXIDE HCl 25 MG CAPSULE PO ×2 (13:34→17:26)
[2022-04-20 16:47] LABS: Appearance Urine CLEAR; Color Urine DK YELLOW; Glucose Urine UA NEG (NEG); Leukocyte Esterase Urine NEG (NEG); Nitrite Urine NEG (NEG); Urine Blood NEG (NEG); Urine Ketones NEG (NEG); Urine Protein TRACE MG/DL (NEG-TRACE)
[2022-04-20 16:56] VITALS: BP 147/93; PULSE 81; RESP 20; TEMP 36.9; O2SAT 95
[2022-04-20 17:00] LABS: Amphetamine Screen Urine Not Detected (Not Detect); Barbiturates, Urine Not Detected (Not Detect); Benzodiazepines Screen Urine POSITIVE (Not Detect); Cannabinoid Screen Urine POSITIVE (Not Detect); Cocaine Screen Urine POSITIVE (Not Detect); Fentanyl, urine POSITIVE (Not Detect); Opiate Screen Urine POSITIVE (Not Detect); Phencyclidine Screen Urine Not Detected (Not Detect)
--- NOTE | 2022-04-20 17:03 | MHC.RECOVSUP ---
Recovery Support note: Patient is a 41 year old Cuban speaking male who presented to [facility] ED due to concern of opiate and alcohol withdrawal and SI. This designer writer met with patient shortly after he arrived to the ED. Patient reports things have been getting worse and that it has never been this bad , in regards to his SI. Patient reports he presented to [facility] hoping to be admitted to their psychiatric unit. Patient reports he feels he needs dual diagnosis treatment. This designer writer spoke with Carlos at [facility] in [place] and confirmed that patient was dosed with 80mg of methadone at the clinic on 04/19. Verification form completed and faxed to pharmacy. Plan for patient to be evaluated by [facility] Discussed case with patient's ED provider.
--- NOTE | 2022-04-20 17:57 | PC.NURSE ---
patient reports he was either due to appear or will be tomorrow [place], enlisting assistance to call even though case should be dismissed . t/w notified him we could research phone number for him on 04/21/22.
[2022-04-21] MEDS: chlordiazePOXIDE HCl 25 MG CAPSULE 50 MG PO (03:00)
[2022-04-21 05:58] VITALS: BP 143/87; PULSE 64; RESP 16; TEMP 36.8; O2SAT 95
--- NOTE | 2022-04-21 06:46 | PC.NURSE ---
Patient slept though the night, well engaged with [facility] clinician, disposition section 12 inpatient bed search, Librium 50 mg PO administered at 0300 + effect, behavior appropriate and non concerning at this time, VSS, patient is currently not on any medication, will continue to monitor.
--- NOTE | 2022-04-21 07:44 | PC.NURSE ---
patient appears to remain asleep at present respirations are even and unlabored patient appears in no distress
[2022-04-21] MEDS: methADONE HCl 20 MG/2 ML ORAL.CONC 80 MG PO (09:36)
[2022-04-21 10:10] VITALS: BP 161/76; PULSE 62; RESP 16; TEMP 36.6; O2SAT 97
[2022-04-21] MEDS: LORazepam 1 MG TABLET 2 MG PO (14:00)
--- NOTE | 2022-04-21 14:30 | PC.NURSE ---
Pt seen this day at bedside for individual OT intervention. Upon initial approach pt presents agitated, anxious and graded. Pt education provided at role of OT within behavioral health setting at pts request. Following education pt became more receptive to treatment. Pt is uninterested in any activities to occupy his time while in the POD stating I just need something for anxiety I need to make a phone call . Pt encouraged to engage in deep breathing exercise for coping with periods of anxiety, pt smirks in response to suggestion however is receptive to the suggestion thanking this rfp writer for coming to talk with him.
[2022-04-21 16:27] LABS: COVID-19 Test Negative (Negative); IDNOW Serial# 9DD0AD1C
[2022-04-22] MEDS: LORazepam 1 MG TABLET PO ×3 (00:18→16:19)
[2022-04-22 01:54] VITALS: BP 145/115; PULSE 77; RESP 18; TEMP 36.2; O2SAT 97
--- NOTE | 2022-04-22 02:27 | PC.ADMIT ---
41yoM admitted from [facility] ED for suicidal ideation with plan to walk into traffic. Pt has hx PTSD and substance use x 20 yrs including fentanyl, alcohol, cocaine, and benzos. Pt reports drinking up to 30 nips of vodka/day and an undisclosed amount of fentanyl. Pt is homeless and his from an OD 1 year ago. Pt on methadone maintenance through [facility], dose verified in ED. Pt reports s/sx etoh withdrawal, hx w/d seizures. Pt declined to participate in admission interview, requesting a snack and went to sleep.
[2022-04-22 08:49] LABS: Alanine Aminotransferase 74 U/L (0-40); Albumin Level 4.1 g/dL (3.5-5.0); Alkaline Phosphatase 107 U/L (39-117); Aspartate Amino Transferase 73 U/L (5-37); Bilirubin Direct 0.5 mg/dL (0.0-0.5); Bilirubin Total 1.1 mg/dL (0.0-1.0); Total Protein 8.1 g/dL (6.5-8.0)
[2022-04-22] MEDS: methADONE HCl 20 MG/2 ML ORAL.CONC 80 MG PO (08:59)
[2022-04-22 09:00] VITALS: BP 145/92; PULSE 75; RESP 16; TEMP 36.7; O2SAT 97
[2022-04-22] MEDS: LORazepam 1 MG TABLET 2 MG PO (14:14)
[2022-04-22 14:21] VITALS: BP 126/84; PULSE 60; RESP 16; TEMP 36.3; O2SAT 97
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
--- NOTE | 2022-04-23 00:14 | PC.NURSE ---
Patient stated that he is not going through alcohol withdrawal. Patient requested not to be awoken during the overnight.
--- NOTE | 2022-04-23 03:55 | PC.NURSE ---
Patient requested not to be awoken for CIWA assessment if sleeping. Patient appears to be resting comfortably. Breathing was free and easy. RR-16. Nurse will continue to monitor.
[2022-04-23 10:04] VITALS: BP 124/66; PULSE 59; RESP 17; TEMP 36.6; O2SAT 98
[2022-04-23] MEDS: methADONE HCl 20 MG/2 ML ORAL.CONC 80 MG PO (10:07)
[2022-04-23] MEDS: LORazepam 1 MG TABLET PO ×3 (10:07→21:00)
--- NOTE | 2022-04-23 15:11 | HO.PSYCHPN ---
Subjective Subjective Date of Service: 04/23/22 Reason For Visit: SI Interim History: lying in bed, no eye contact, reports feeling unwell physically, not interested in much talk. informed ativan taper would be scheduled over next several days. would like to continue to detox and engage with MD once feeling better. per staff, not attending groups. spent nearly 100% of his time in his bed. VSS. refused ativan at HS. slept through the night. Mental Status Exam Mental Status Exam Narrative: in bed under covers. cooperative, but declines interview. no PMA/PMR. speech nml rate, decr amount, decr loudness, nml latency. thoughts linear and logical. affect constricted, normo-intense, non-labile, consistent with context. mood not assessed. no SI/HI/AVH expressed. Diagnostics Vital Signs (24Hr): Vital Signs - 24 hr 04/23/22 10:04 Temperature 97.8 F Pulse Rate 59 Respiratory Rate 17 Blood Pressure 124/66 Pulse Oximetry 98 Oxygen Delivery Method Room Air BMI result Body Mass Index 26.5 Labs Results: 04/20/22 10:35 04/20/22 10:35 Labs: Laboratory Results - last 48 hr 04/21/22 04/22/22 15:59 08:10 Total Bilirubin 1.1 H Direct Bilirubin 0.5 AST 73 H ALT 74 H Alkaline Phosphatase 107 Total Protein 8.1 H Albumin 4.1 COVID-19 ([facility]) Negative COVID-19 Clin Com See Note Imaging Radiology Impressions: ITS Impressions Chest X-Ray 04/20/22 11:00 IMPRESSION: Unremarkable chest exam. Medications Medications Current Medications Al Hydroxide/Mg Hydroxide (Magnesium Hydrox/Alum Hydrox 30 Ml Oral.Susp) 30 ml PO Q6H PRN PRN Reason: Heartburn/Nausea Clonidine HCl (Clonidine Hcl 0.1 Mg Tablet) 0.1 mg PO Q4H PRN; Protocol PRN Reason: signs of opioid withdrawal Dicyclomine HCl (Dicyclomine Hcl 10 Mg Capsule) 10 mg PO Q6H PRN PRN Reason: stomach cramps Hydroxyzine HCl (Hydroxyzine Hcl 25 Mg Tablet) 25 mg PO Q6H PRN PRN Reason: Anxiety Ibuprofen (Ibuprofen 600 Mg Tablet) 600 mg PO Q6H PRN PRN Reason: aches Lorazepam (Lorazepam 1 Mg Tablet) 1 mg PO TID [facility] Last Admin: 04/23/22 10:07 Dose: 1 mg Magnesium Hydroxide (Milk Of Magnesia 30 Ml Oral.Susp) 30 ml PO DAILY PRN PRN Reason: Constipation Methadone HCl (Methadone Hcl 20 Mg/2 Ml Oral.Conc) 80 mg PO DAILY [facility] Last Admin: 04/23/22 10:07 Dose: 80 mg Nicotine Polacrilex (Nicotine Polacrilex 2 Mg Gum) 4 mg BUCCAL Q2H PRN PRN Reason: Nicotine Cravings Allergies Allergies Allergy/AdvReac Type Severity Reaction Status Date / Time fish derived [FISH] Allergy Unknown UNKNOWN - Verified 01/05/22 21:22 NOT ANAPHYLAXIS PER PATIENT trazodone AdvReac Severe priapr Verified 02/06/22 12:53 Assessment & Plan Assessment & Plan (1) PTSD (post-traumatic stress disorder): Status: Acute Code(s): F43.10 - Post-traumatic stress disorder, unspecified (2) Stimulant use disorder: Status: Acute Code(s): F15.90 - Other stimulant use, unspecified, uncomplicated (3) Opioid use disorder: Status: Acute Code(s): F11.90 - Opioid use, unspecified, uncomplicated (4) Alcohol dependence: Status: Acute Code(s): F10.20 - Alcohol dependence, uncomplicated (5) Suicidal ideation: Status: Acute Code(s): R45.851 - Suicidal ideations Plan taper ativan: received 5 ativan mg equivs, 04/21, 4 on 04/22. will continue with 3 on 04/23, 2 on 04/24, and 1 on 04/25. comfort meds for opioid withdrawal. continue home meds otherwise. reassess daily, engage more around mental health treatment once detox is further along. I spent ___25___ minutes with the patient and/or on the patient floor today, greater than?50% of which was spent counseling/coordinating care. Reason for contiued inpatient stay Substantial Risk for: inability to function and rapid decompensation
[2022-04-23 20:55] VITALS: BP 124/84; PULSE 91; RESP 16; TEMP 36.4; O2SAT 98
[2022-04-23] MEDS: Melatonin 3 MG TABLET 6 MG PO (21:00)
[2022-04-24 06:00] VITALS: BP 152/67; PULSE 128; RESP 20; TEMP 36.6; O2SAT 98
[2022-04-24 07:00] VITALS: BMI 24.0
[2022-04-24] MEDS: methADONE HCl 20 MG/2 ML ORAL.CONC 80 MG PO (09:42)
[2022-04-24] MEDS: LORazepam 1 MG TABLET PO (09:42)
[2022-04-24] MEDS: Ibuprofen 600 MG TABLET PO ×2 (09:42→17:38)
[2022-04-24] MEDS: Dicyclomine HCl 10 MG CAPSULE PO ×2 (09:42→17:38)
[2022-04-24] MEDS: Milk of Magnesia 30 ML ORAL.SUSP PO (09:43)
[2022-04-24] MEDS: cloNIDine HCL 0.1 MG TABLET PO ×3 (09:43→21:54)
[2022-04-24] MEDS: Nicotine Polacrilex 2 MG GUM 4 MG BUCCAL ×4 (09:46→21:55)
--- NOTE | 2022-04-24 14:27 | P.PNPSI_ITS ---
Subjective Subjective Date of Service: 04/24/22 Reason For Visit: SI Interim History: pt remains in bed, easily roused. a bit more responsive to MD today. asks for his usual outpt meds to be restarted, specifying adderall and gabapentin. MD asks where he gets his meds filled and who prescribes them and pt states he last got them from [facility] at his most recent discharge. MD says he will look into it. pt also asks for triamcinolone for his plaque psoriasis, showing a plaque on his fisher. MD agrees to Rx. pt has no other requests or complaints for MD, states he is feeling a little better today but not well. reviews most recent DC summary, dated 02/11/22, which includes the following meds: suboxone 20 mg daily clonidine 0.1 mg TID adderall XR 30 mg daily prozac 10 mg daily gabapentin 1200 mg TID per staff, still spending all day in bed. no PO intake yesterday. court date thursday, which he asked SW to take care of. SW communicated with court and now date has been moved to may. no other notable events or behaviors. Mental Status Exam Mental Status Exam Narrative: in bed. cooperative, but keeps interview brief. no PMA/PMR. speech nml rate, decr amount, nml loudness, nml latency. thoughts linear and logical. affect constricted, normo-intense, non-labile, consistent with context. mood not assessed. no SI/HI/AVH expressed. Diagnostics Vital Signs (24Hr): Vital Signs - 24 hr 04/23/22 20:55 04/24/22 06:00 Temperature 97.5 F 97.9 F Pulse Rate 91 128 H Respiratory Rate 16 20 Blood Pressure 124/84 152/67 H Pulse Oximetry 98 98 Oxygen Delivery Method Room Air Room Air BMI result Body Mass Index 26.5 Labs Results: 04/20/22 10:35 04/20/22 10:35 Imaging Radiology Impressions: ITS Impressions Chest X-Ray 04/20/22 11:00 IMPRESSION: Unremarkable chest exam. Medications Medications Current Medications Al Hydroxide/Mg Hydroxide (Magnesium Hydrox/Alum Hydrox 30 Ml Oral.Susp) 30 ml PO Q6H PRN PRN Reason: Heartburn/Nausea Clonidine HCl (Clonidine Hcl 0.1 Mg Tablet) 0.1 mg PO TID [facility]; Protocol Dicyclomine HCl (Dicyclomine Hcl 10 Mg Capsule) 10 mg PO Q6H PRN PRN Reason: stomach cramps Last Admin: 04/24/22 09:42 Dose: 10 mg Fluoxetine HCl (Fluoxetine Hcl 20 Mg Capsule) 20 mg PO DAILY COUNT INCLUDES [facility] Gabapentin (Gabapentin 400 Mg Capsule) 400 mg PO TID COUNT INCLUDES THE [facility] Hydroxyzine HCl (Hydroxyzine Hcl 25 Mg Tablet) 25 mg PO Q6H PRN PRN Reason: Anxiety Ibuprofen (Ibuprofen 600 Mg Tablet) 600 mg PO Q6H PRN PRN Reason: aches Last Admin: 04/24/22 09:42 Dose: 600 mg Lorazepam (Lorazepam 0.5 Mg Tablet) 0.5 mg PO TID COUNT INCLUDES THE [facility] Magnesium Hydroxide (Milk Of Magnesia 30 Ml Oral.Susp) 30 ml PO DAILY PRN PRN Reason: Constipation Last Admin: 04/24/22 09:43 Dose: 30 ml Melatonin (Melatonin 3 Mg Tablet) 6 mg PO BEDTIME PRN PRN Reason: Insomnia Last Admin: 04/23/22 21:00 Dose: 6 mg Methadone HCl (Methadone Hcl 20 Mg/2 Ml Oral.Conc) 80 mg PO DAILY [facility] Last Admin: 04/24/22 09:42 Dose: 80 mg Nicotine Polacrilex (Nicotine Polacrilex 2 Mg Gum) 4 mg BUCCAL Q2H PRN PRN Reason: Nicotine Cravings Last Admin: 04/24/22 09:46 Dose: 4 mg Allergies Allergies Allergy/AdvReac Type Severity Reaction Status Date / Time fish derived [FISH] Allergy Unknown UNKNOWN - Verified 01/05/22 21:22 NOT ANAPHYLAXIS PER PATIENT trazodone AdvReac Severe priapr Verified 02/06/22 12:53 Assessment & Plan Assessment & Plan (1) PTSD (post-traumatic stress disorder): Status: Acute Code(s): F43.10 - Post-traumatic stress disorder, unspecified (2) Stimulant use disorder: Status: Acute Code(s): F15.90 - Other stimulant use, unspecified, uncomplicated (3) Opioid use disorder: Status: Acute Code(s): F11.90 - Opioid use, unspecified, uncomplicated (4) Alcohol dependence: Status: Acute Code(s): F10.20 - Alcohol dependence, uncomplicated (5) Suicidal ideation: Status: Acute Code(s): R45.851 - Suicidal ideations Plan taper ativan: received 5 ativan mg equivs, 04/21, 4 on 04/22. will continue with 3 on 04/23, 2 on 04/24, and 1 on 04/25. comfort meds for opioid withdrawal. restart clonidine, gabapentin, prozac, per pt request. hold adderall, as pt has clear h/o stimulant abuse and it is apparently not helping him stay away from drugs. add triamcinolone for psoriasis.. I spent __25____ minutes with the patient and/or on the patient floor today, greater than?50% of which was spent counseling/coordinating care. Reason for contiued inpatient stay Substantial Risk for: inability to function and rapid decompensation
[2022-04-24] MEDS: FLUoxetine HCl 20 MG CAPSULE PO (15:30)
[2022-04-24] MEDS: Gabapentin 400 MG CAPSULE PO ×2 (15:31→21:55)
[2022-04-24] MEDS: LORazepam 0.5 MG TABLET PO ×2 (15:31→21:55)
[2022-04-24] MEDS: hydrOXYzine HCL 25 MG TABLET PO (17:38)
[2022-04-24 21:52] VITALS: BP 102/70; PULSE 81; TEMP 36.6; O2SAT 98
[2022-04-24] MEDS: Melatonin 3 MG TABLET 6 MG PO (21:54)
[2022-04-25 09:26] VITALS: BP 107/69; PULSE 96; RESP 17; TEMP 36.9; O2SAT 98
[2022-04-25] MEDS: cloNIDine HCL 0.1 MG TABLET PO ×3 (09:27→20:13)
[2022-04-25] MEDS: FLUoxetine HCl 20 MG CAPSULE PO (09:28)
[2022-04-25] MEDS: methADONE HCl 20 MG/2 ML ORAL.CONC 80 MG PO (09:28)
[2022-04-25] MEDS: Gabapentin 400 MG CAPSULE PO ×2 (09:28→14:43)
[2022-04-25] MEDS: LORazepam 0.5 MG TABLET PO ×3 (09:28→23:20)
[2022-04-25] MEDS: Ibuprofen 600 MG TABLET PO (13:29)
[2022-04-25] MEDS: hydrOXYzine HCL 25 MG TABLET PO ×2 (13:30→20:13)
[2022-04-25] MEDS: Nicotine Polacrilex 2 MG GUM 4 MG BUCCAL ×2 (13:32→20:14)
[2022-04-25] MEDS: Triamcinolone Acet 0.1 % Cream 15 GM TUBE 1 APPL TOPICAL (14:41)
[2022-04-25 14:44] VITALS: BP 126/79; PULSE 107
--- NOTE | 2022-04-25 15:28 | HO.PSYCHPN ---
Subjective Subjective Date of Service: 04/25/22 Reason For Visit: SI Interim History: pt found sleeping in bed late morning, rousable to loud voice. asks MD about adderall, states no stimulants will be provided for him due to his substance use history. MD informs pt that plan will be to detox him through the weekend and [facility]. pt expresses gratitude for being allowed to stay the weekend and agreement with the plan as stated. he requests an increase in gabapentin dosing and to have benadryl 100 PRN at HS rather than hydroxyzine. Mental Status Exam Mental Status Exam Narrative: in bed. cooperative, but keeps interview brief. no PMA/PMR. speech nml rate, decr amount, nml loudness, nml latency. thoughts linear and logical. affect constricted, normo-intense, non-labile, consistent with context. mood not assessed. no SI/HI/AVH expressed. Diagnostics Vital Signs (24Hr): Vital Signs - 24 hr 04/24/22 21:52 04/25/22 09:26 04/25/22 14:44 Temperature 97.9 F 98.5 F Pulse Rate 81 96 107 H Respiratory Rate 17 Blood Pressure 102/70 107/69 126/79 Pulse Oximetry 98 98 Oxygen Delivery Method Room Air Room Air BMI result Body Mass Index 24.0 Labs Results: 04/20/22 10:35 04/20/22 10:35 Imaging Radiology Impressions: ITS Impressions Chest X-Ray 04/20/22 11:00 IMPRESSION: Unremarkable chest exam. Medications Medications Current Medications Al Hydroxide/Mg Hydroxide (Magnesium Hydrox/Alum Hydrox 30 Ml Oral.Susp) 30 ml PO Q6H PRN PRN Reason: Heartburn/Nausea Clonidine HCl (Clonidine Hcl 0.1 Mg Tablet) 0.1 mg PO TID [facility]; Protocol Last Admin: 04/25/22 14:43 Dose: 0.1 mg Dicyclomine HCl (Dicyclomine Hcl 10 Mg Capsule) 10 mg PO Q6H PRN PRN Reason: stomach cramps Last Admin: 04/24/22 17:38 Dose: 10 mg Fluoxetine HCl (Fluoxetine Hcl 20 Mg Capsule) 20 mg PO DAILY [facility] Last Admin: 04/25/22 09:28 Dose: 20 mg Gabapentin (Gabapentin 400 Mg Capsule) 800 mg PO TID [facility] Hydroxyzine HCl (Hydroxyzine Hcl 25 Mg Tablet) 25 mg PO Q6H PRN PRN Reason: Anxiety Last Admin: 04/25/22 13:30 Dose: 25 mg Ibuprofen (Ibuprofen 600 Mg Tablet) 600 mg PO Q6H PRN PRN Reason: aches Last Admin: 04/25/22 13:29 Dose: 600 mg Magnesium Hydroxide (Milk Of Magnesia 30 Ml Oral.Susp) 30 ml PO DAILY PRN PRN Reason: Constipation Last Admin: 04/24/22 09:43 Dose: 30 ml Melatonin (Melatonin 3 Mg Tablet) 6 mg PO BEDTIME PRN PRN Reason: Insomnia Last Admin: 04/24/22 21:54 Dose: 6 mg Methadone HCl (Methadone Hcl 20 Mg/2 Ml Oral.Conc) 80 mg PO DAILY [facility] Last Admin: 04/25/22 09:28 Dose: 80 mg Nicotine Polacrilex (Nicotine Polacrilex 2 Mg Gum) 4 mg BUCCAL Q2H PRN PRN Reason: Nicotine Cravings Last Admin: 04/25/22 13:32 Dose: 4 mg Triamcinolone Acetonide (Triamcinolone Acet 0.1 % Cream 15 Gm Tube) 1 appl TOPICAL DAILY [facility]; Protocol Last Admin: 04/25/22 14:41 Dose: 1 appl Allergies Allergies Allergy/AdvReac Type Severity Reaction Status Date / Time fish derived [FISH] Allergy Unknown UNKNOWN - Verified 01/05/22 21:22 NOT ANAPHYLAXIS PER PATIENT trazodone AdvReac Severe priapr Verified 02/06/22 12:53 Assessment & Plan Assessment & Plan (1) PTSD (post-traumatic stress disorder): Status: Acute Code(s): F43.10 - Post-traumatic stress disorder, unspecified (2) Stimulant use disorder: Status: Acute Code(s): F15.90 - Other stimulant use, unspecified, uncomplicated (3) Opioid use disorder: Status: Acute Code(s): F11.90 - Opioid use, unspecified, uncomplicated (4) Alcohol dependence: Status: Acute Code(s): F10.20 - Alcohol dependence, uncomplicated (5) Suicidal ideation: Status: Acute Code(s): R45.851 - Suicidal ideations Plan taper ativan: received 5 ativan mg equivs, 04/21, 4 on 04/22. will continue with 3 on 04/23, 2 on 04/24, and 1 on 04/25. comfort meds for opioid withdrawal. restarted clonidine, gabapentin, prozac, per pt request. hold adderall, as pt has clear h/o stimulant abuse and it is apparently not helping him stay away from drugs. added triamcinolone for psoriasis. DC thursday to [facility]. I spent __20____ minutes with the patient and/or on the patient floor today, greater than?50% of which was spent counseling/coordinating care. Reason for contiued inpatient stay Substantial Risk for: inability to function and rapid decompensation
[2022-04-25 20:05] VITALS: BP 101/71; PULSE 100; RESP 18; TEMP 36.4; O2SAT 97
[2022-04-25] MEDS: Gabapentin 400 MG CAPSULE 800 MG PO (20:13)
[2022-04-25] MEDS: Melatonin 3 MG TABLET 6 MG PO (20:13)
[2022-04-25] MEDS: diphenhydrAMINE HCL 25 MG TABLET 100 MG PO (20:13)
[2022-04-26] MEDS: hydrOXYzine HCL 25 MG TABLET PO ×2 (01:25→21:15)
[2022-04-26 09:05] VITALS: BP 119/73; PULSE 73; RESP 18; TEMP 36.6; O2SAT 99
[2022-04-26] MEDS: Gabapentin 400 MG CAPSULE 800 MG PO ×3 (09:18→21:14)
[2022-04-26] MEDS: FLUoxetine HCl 20 MG CAPSULE PO (09:18)
[2022-04-26] MEDS: cloNIDine HCL 0.1 MG TABLET PO ×2 (09:18→14:34)
[2022-04-26] MEDS: LORazepam 0.5 MG TABLET PO ×2 (09:19→21:14)
[2022-04-26] MEDS: methADONE HCl 20 MG/2 ML ORAL.CONC 80 MG PO (09:23)
--- NOTE | 2022-04-26 11:08 | P.PNPSI_ITS ---
Subjective Subjective Date of Service: 04/26/22 Reason For Visit: SI Subjective Notes: Conditional Voluntary Interim History: Pt reports I'm leaving Thursday, I am fine, I will sleep until Thursday. He denies SI/HI. He is eating and sleeping well. No behavioral concerns but not engagement in treatment. Medication Compliance: Yes Side effects from medications: No Review of Systems Review of Systems Constitutional : No Fever, No Chills ENT/Mouth : No Ear Pain, No Nasal Congestion, No sore throat Eyes: No Eye Pain, No Swelling, No Redness Cardiovascular : No Chest Pain, No SOB Respiratory : No Cough, No Sputum, No Dyspnea Gastrointestinal : No ingestions, + Nausea, No Vomiting, No Diarrhea, No Hematochezia, No Melena Genitourinary : No Dysuria, No Urinary Frequency, No Hematuria Musculoskeletal : No Myalgias Skin : No Skin Lesions, No rash Neuro : No Weakness, No Numbness, No Paresthesias, No Dizziness, + Headache Psych : + Anxiety, + Depression, + SI, + thoughts of self injury, No HI, No AVH, Heme/Lymph: No Lymphadenopathy Endocrine : No Polyuria, No Polydipsia Yes all other systems are reviewed and are negative Mental Status Exam Mental Status Exam Narrative: in bed. cooperative, but keeps interview brief. no PMA/PMR. speech nml rate, decr amount, nml loudness, nml latency. thoughts linear and logical. affect constricted, normo-intense, non-labile, consistent with context. mood not assessed. no SI/HI/AVH expressed. Diagnostics Vital Signs (24Hr): Vital Signs - 24 hr 04/27/22 09:30 04/27/22 14:40 04/27/22 20:10 Temperature 97.5 F 98.1 F Pulse Rate 83 96 74 Respiratory Rate 20 18 18 Blood Pressure 113/80 130/74 125/69 Pulse Oximetry 98 98 98 Oxygen Delivery Method Room Air Room Air Room Air BMI result Body Mass Index 24.0 Labs Results: 04/20/22 10:35 04/20/22 10:35 Imaging Radiology Impressions: ITS Impressions Chest X-Ray 04/20/22 11:00 IMPRESSION: Unremarkable chest exam. Medications Medications Current Medications Al Hydroxide/Mg Hydroxide (Magnesium Hydrox/Alum Hydrox 30 Ml Oral.Susp) 30 ml PO Q6H PRN PRN Reason: Heartburn/Nausea Clonidine HCl (Clonidine Hcl 0.1 Mg Tablet) 0.1 mg PO TID [facility]; Protocol Last Admin: 04/27/22 20:12 Dose: 0.1 mg Dicyclomine HCl (Dicyclomine Hcl 10 Mg Capsule) 10 mg PO Q6H PRN PRN Reason: stomach cramps Last Admin: 04/24/22 17:38 Dose: 10 mg Diphenhydramine HCl (Diphenhydramine Hcl 25 Mg Tablet) 100 mg PO BEDTIME PRN PRN Reason: insomnia Last Admin: 04/27/22 20:12 Dose: 100 mg Fluoxetine HCl (Fluoxetine Hcl 20 Mg Capsule) 20 mg PO DAILY [facility] Last Admin: 04/27/22 09:39 Dose: 20 mg Gabapentin (Gabapentin 400 Mg Capsule) 800 mg PO TID [facility] Last Admin: 04/27/22 20:12 Dose: 800 mg Hydroxyzine HCl (Hydroxyzine Hcl 25 Mg Tablet) 25 mg PO Q6H PRN PRN Reason: Anxiety Last Admin: 04/26/22 21:15 Dose: 25 mg Ibuprofen (Ibuprofen 600 Mg Tablet) 600 mg PO Q6H PRN PRN Reason: aches Last Admin: 04/27/22 09:39 Dose: 600 mg Magnesium Hydroxide (Milk Of Magnesia 30 Ml Oral.Susp) 30 ml PO DAILY PRN PRN Reason: Constipation Last Admin: 04/24/22 09:43 Dose: 30 ml Melatonin (Melatonin 3 Mg Tablet) 6 mg PO BEDTIME PRN PRN Reason: Insomnia Last Admin: 04/27/22 20:13 Dose: 6 mg Methadone HCl (Methadone Hcl 20 Mg/2 Ml Oral.Conc) 80 mg PO DAILY [facility] Last Admin: 04/27/22 09:38 Dose: 80 mg Nicotine Polacrilex (Nicotine Polacrilex 2 Mg Gum) 4 mg BUCCAL Q2H PRN PRN Reason: Nicotine Cravings Last Admin: 04/27/22 20:13 Dose: 4 mg Triamcinolone Acetonide (Triamcinolone Acet 0.1 % Cream 15 Gm Tube) 1 appl TOPICAL DAILY [facility]; Protocol Last Admin: 04/27/22 13:42 Dose: Not Given Allergies Allergies Allergy/AdvReac Type Severity Reaction Status Date / Time fish derived [FISH] Allergy Unknown UNKNOWN - Verified 01/05/22 21:22 NOT ANAPHYLAXIS PER PATIENT trazodone AdvReac Severe priapr Verified 02/06/22 12:53 Assessment & Plan Assessment & Plan (1) PTSD (post-traumatic stress disorder): Status: Acute Code(s): F43.10 - Post-traumatic stress disorder, unspecified (2) Stimulant use disorder: Status: Acute Code(s): F15.90 - Other stimulant use, unspecified, uncomplicated (3) Opioid use disorder: Status: Acute Code(s): F11.90 - Opioid use, unspecified, uncomplicated (4) Alcohol dependence: Status: Acute Code(s): F10.20 - Alcohol dependence, uncomplicated (5) Suicidal ideation: Status: Acute Code(s): R45.851 - Suicidal ideations Plan taper ativan: received 5 ativan mg equivs, 04/21, 4 on 04/22. will continue with 3 on 04/23, 2 on 04/24, and 1 on 04/25. comfort meds for opioid withdrawal. restarted clonidine, gabapentin, prozac, per pt request. hold adderall, as pt has clear h/o stimulant abuse and it is apparently not helping him stay away from drugs. added triamcinolone for psoriasis. [facility] continue current tx. I spent __25____ minutes with the patient and/or on the patient floor today, greater than?50% of which was spent counseling/coordinating care. Reason for contiued inpatient stay Substantial Risk for: stable for discharge
[2022-04-26] MEDS: Nicotine Polacrilex 2 MG GUM 4 MG BUCCAL ×2 (12:25→21:14)
[2022-04-26 14:40] VITALS: BP 115/79; PULSE 104; RESP 18; O2SAT 98
[2022-04-26 21:10] VITALS: BP 137/74; PULSE 60; RESP 16; TEMP 36.3; O2SAT 96
[2022-04-26] MEDS: diphenhydrAMINE HCL 25 MG TABLET 100 MG PO (21:15)
[2022-04-26] MEDS: Melatonin 3 MG TABLET 6 MG PO (21:15)
[2022-04-27] MEDS: cloNIDine HCL 0.1 MG TABLET PO ×4 (04:38→20:12)
[2022-04-27 04:40] VITALS: BP 137/86; PULSE 77; RESP 18; TEMP 36.6; O2SAT 98
--- NOTE | 2022-04-27 07:10 | HO.PSYCHPN ---
Subjective Subjective Date of Service: 04/27/22 Reason For Visit: SI Subjective Notes: Conditional Voluntary Interim History: Pt reports he is doing well. he denies SI/HI/VH/AH. He slept well. No behavioral concerns. However, pt not engaged in any aspect of therapeutic milieu. Medication Compliance: Yes Side effects from medications: No Review of Systems Review of Systems Constitutional : No Fever, No Chills ENT/Mouth : No Ear Pain, No Nasal Congestion, No sore throat Eyes: No Eye Pain, No Swelling, No Redness Cardiovascular : No Chest Pain, No SOB Respiratory : No Cough, No Sputum, No Dyspnea Gastrointestinal : No ingestions, + Nausea, No Vomiting, No Diarrhea, No Hematochezia, No Melena Genitourinary : No Dysuria, No Urinary Frequency, No Hematuria Musculoskeletal : No Myalgias Skin : No Skin Lesions, No rash Neuro : No Weakness, No Numbness, No Paresthesias, No Dizziness, + Headache Psych : + Anxiety, + Depression, + SI, + thoughts of self injury, No HI, No AVH, Heme/Lymph: No Lymphadenopathy Endocrine : No Polyuria, No Polydipsia Yes all other systems are reviewed and are negative Mental Status Exam Mental Status Exam Narrative: in bed. cooperative, but keeps interview brief. no PMA/PMR. speech nml rate, decr amount, nml loudness, nml latency. thoughts linear and logical. affect constricted, normo-intense, non-labile, consistent with context. mood not assessed. no SI/HI/AVH expressed. Diagnostics Vital Signs (24Hr): Vital Signs - 24 hr 04/27/22 09:30 04/27/22 14:40 04/27/22 20:10 Temperature 97.5 F 98.1 F Pulse Rate 83 96 74 Respiratory Rate 20 18 18 Blood Pressure 113/80 130/74 125/69 Pulse Oximetry 98 98 98 Oxygen Delivery Method Room Air Room Air Room Air BMI result Body Mass Index 24.0 Labs Results: 04/20/22 10:35 04/20/22 10:35 Imaging Radiology Impressions: ITS Impressions Chest X-Ray 04/20/22 11:00 IMPRESSION: Unremarkable chest exam. Medications Medications Current Medications Al Hydroxide/Mg Hydroxide (Magnesium Hydrox/Alum Hydrox 30 Ml Oral.Susp) 30 ml PO Q6H PRN PRN Reason: Heartburn/Nausea Clonidine HCl (Clonidine Hcl 0.1 Mg Tablet) 0.1 mg PO TID [facility]; Protocol Last Admin: 04/27/22 20:12 Dose: 0.1 mg Dicyclomine HCl (Dicyclomine Hcl 10 Mg Capsule) 10 mg PO Q6H PRN PRN Reason: stomach cramps Last Admin: 04/24/22 17:38 Dose: 10 mg Diphenhydramine HCl (Diphenhydramine Hcl 25 Mg Tablet) 100 mg PO BEDTIME PRN PRN Reason: insomnia Last Admin: 04/27/22 20:12 Dose: 100 mg Fluoxetine HCl (Fluoxetine Hcl 20 Mg Capsule) 20 mg PO DAILY [facility] Last Admin: 04/27/22 09:39 Dose: 20 mg Gabapentin (Gabapentin 400 Mg Capsule) 800 mg PO TID [facility] Last Admin: 04/27/22 20:12 Dose: 800 mg Hydroxyzine HCl (Hydroxyzine Hcl 25 Mg Tablet) 25 mg PO Q6H PRN PRN Reason: Anxiety Last Admin: 04/26/22 21:15 Dose: 25 mg Ibuprofen (Ibuprofen 600 Mg Tablet) 600 mg PO Q6H PRN PRN Reason: aches Last Admin: 04/27/22 09:39 Dose: 600 mg Magnesium Hydroxide (Milk Of Magnesia 30 Ml Oral.Susp) 30 ml PO DAILY PRN PRN Reason: Constipation Last Admin: 04/24/22 09:43 Dose: 30 ml Melatonin (Melatonin 3 Mg Tablet) 6 mg PO BEDTIME PRN PRN Reason: Insomnia Last Admin: 04/27/22 20:13 Dose: 6 mg Methadone HCl (Methadone Hcl 20 Mg/2 Ml Oral.Conc) 80 mg PO DAILY [facility] Last Admin: 04/27/22 09:38 Dose: 80 mg Nicotine Polacrilex (Nicotine Polacrilex 2 Mg Gum) 4 mg BUCCAL Q2H PRN PRN Reason: Nicotine Cravings Last Admin: 04/27/22 20:13 Dose: 4 mg Triamcinolone Acetonide (Triamcinolone Acet 0.1 % Cream 15 Gm Tube) 1 appl TOPICAL DAILY [facility]; Protocol Last Admin: 04/27/22 13:42 Dose: Not Given Allergies Allergies Allergy/AdvReac Type Severity Reaction Status Date / Time fish derived [FISH] Allergy Unknown UNKNOWN - Verified 01/05/22 21:22 NOT ANAPHYLAXIS PER PATIENT trazodone AdvReac Severe priapr Verified 03/24/22 12:53 Assessment & Plan Assessment & Plan (1) PTSD (post-traumatic stress disorder): Status: Acute Code(s): F43.10 - Post-traumatic stress disorder, unspecified (2) Stimulant use disorder: Status: Acute Code(s): F15.90 - Other stimulant use, unspecified, uncomplicated (3) Opioid use disorder: Status: Acute Code(s): F11.90 - Opioid use, unspecified, uncomplicated (4) Alcohol dependence: Status: Acute Code(s): F10.20 - Alcohol dependence, uncomplicated (5) Suicidal ideation: Status: Acute Code(s): R45.851 - Suicidal ideations Plan taper ativan: received 5 ativan mg equivs, 04/21, 4 on 04/22. will continue with 3 on 04/23, 2 on 04/24, and 1 on 04/25. comfort meds for opioid withdrawal. restarted clonidine, gabapentin, prozac, per pt request. hold adderall, as pt has clear h/o stimulant abuse and it is apparently not helping him stay away from drugs. added triamcinolone for psoriasis. DC thursday to [facility]. 04/26 continue current tx. 04/27 continue tx plan. I spent __25____ minutes with the patient and/or on the patient floor today, greater than?50% of which was spent counseling/coordinating care. Reason for contiued inpatient stay Substantial Risk for: stable for discharge
[2022-04-27 09:30] VITALS: BP 113/80; PULSE 83; RESP 20; TEMP 36.4; O2SAT 98
[2022-04-27] MEDS: methADONE HCl 20 MG/2 ML ORAL.CONC 80 MG PO (09:38)
[2022-04-27] MEDS: LORazepam 0.5 MG TABLET PO (09:39)
[2022-04-27] MEDS: Gabapentin 400 MG CAPSULE 800 MG PO ×3 (09:39→20:12)
[2022-04-27] MEDS: FLUoxetine HCl 20 MG CAPSULE PO (09:39)
[2022-04-27] MEDS: Ibuprofen 600 MG TABLET PO (09:39)
[2022-04-27] MEDS: Nicotine Polacrilex 2 MG GUM 4 MG BUCCAL ×3 (10:29→20:13)
[2022-04-27 14:40] VITALS: BP 130/74; PULSE 96; RESP 18; O2SAT 98
[2022-04-27 20:10] VITALS: BP 125/69; PULSE 74; RESP 18; TEMP 36.7; O2SAT 98
[2022-04-27] MEDS: diphenhydrAMINE HCL 25 MG TABLET 100 MG PO (20:12)
[2022-04-27] MEDS: Melatonin 3 MG TABLET 6 MG PO (20:13)
[2022-04-28 06:00] VITALS: BP 117/90; PULSE 83; RESP 16; TEMP 37; O2SAT 96
[2022-04-28] MEDS: Gabapentin 400 MG CAPSULE 800 MG PO (07:52)
[2022-04-28] MEDS: methADONE HCl 20 MG/2 ML ORAL.CONC 80 MG PO (07:52)
[2022-04-28] MEDS: FLUoxetine HCl 20 MG CAPSULE PO (07:53)
[2022-04-28] MEDS: cloNIDine HCL 0.1 MG TABLET PO (07:53)
[2022-04-28] MEDS: Nicotine Polacrilex 2 MG GUM 4 MG BUCCAL ×2 (07:55→09:58)
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
== END 2022-04-28 10:48 | disposition home or self-care (01) | DRG 755 ==
LOC: HO.ED 16:37 → HO.PADLT16 04-21 23:19
PROVIDERS: Physician Assistant Medical; Psychiatry & Neurology Psychiatry; Admitting Provider Psychiatry & Neurology Psychiatry; Emergency Provider Student in an Organized Health Care Education/Training Program; Visit Provider Psychiatry & Neurology Psychiatry
DX: F43.10 Post-traumatic stress disorder, unspecified (principal); R45.851 Suicidal ideations; F10.20 Alcohol dependence, uncomplicated; F11.20 Opioid dependence, uncomplicated; F17.210 Nicotine dependence, cigarettes, uncomplicated; Z20.822 Contact with and (suspected) exposure to COVID-19; Z91.013 Allergy to seafood; Z71.6 Tobacco abuse counseling; Z79.899 Other long term (current) drug therapy
CPT/HCPCS: 36415; 71045; 80053; 80076; 80307; 81003; 82077; 83690; 83735; 85025; 87502; 87635; 93005; 99285; Q0163

== ENCOUNTER 2022-05-18 05:33 | Inpatient (IN) | payer MEDICAID, OTHER, SELFPAY ==
[2022-05-18 05:35] VITALS: BP 155/90; PULSE 77; RESP 22; TEMP 36.6; O2SAT 98; BMI 27.2
[2022-05-18] MEDS: LORazepam 1 MG TABLET PO (06:12)
[2022-05-18 06:19] LABS: COVID-19 Test Negative (Negative)
[2022-05-18 06:28] LABS: MANUAL DIFF FLAG NO
[2022-05-18 06:30] LABS: Basophils Percent Auto 0.5 % (0-2); Eosinophils Absolute Auto 0.1 X10*3/uL (0.0-0.4); Eosinophils Percent Auto 1.6 % (0-4); Hematocrit 32.7 % (42.0-52.0); Hemoglobin 10.5 g/dl (14.0-18.0); Imm Gran Abs Auto 0.02 X10*3/uL (0.00-0.03); Imm Gran Pct Auto 0.2 % (0.0-0.4); Lymphocytes Absolute Auto 1.9 X10*3/uL (1.2-4.9); Lymphocytes Percent Auto 23.4 % (20-40); Mean Corpuscular HGB Conc 32.1 g/dl (31.0-36.0); Mean Corpuscular Volume 65.5 fL (80.0-98.0); Mean Platelet Volume 9.6 fL (9.4-12.4); Monocytes Absolute Auto 1.2 X10*3/uL (0.1-1.2); Monocytes Percent Auto 14.6 % (2-11); Neutrophils Absolute Auto 4.9 x10*3/uL (2.0-8.3); Neutrophils Percent Auto 59.7 % (45-73); Platelet Count 275 X10*3/uL (160-400); Red Blood Count 4.99 X10*6/uL (4.60-5.80); Red Cell Distribution Width 16.8 % (11.0-16.0); White Blood Count 8.2 X10*3/uL (4.8-10.8)
--- NOTE | 2022-05-18 06:32 | PC.NURSE ---
Patient just arrived, walked in, no distress observed/reported, [facility] referral completed/confirmed/pending ETA, med rec completed/pending provider's approval, urine pending, blood work completed, methadon dose needs to verified/paper work ready, VSS, Ativan 1 mg PO administered for comfort, will continue to monitor.
[2022-05-18 06:47] LABS: Acetaminophen LAB < 1 mcg/mL (<30); Alanine Aminotransferase 62 U/L (0-40); Albumin Level 4.3 g/dL (3.5-5.0); Alkaline Phosphatase 96 U/L (39-117); Anion Gap 14 (12-20); Aspartate Amino Transferase 97 U/L (5-37); Bilirubin Direct 0.5 mg/dL (0.0-0.5); Bilirubin Total 0.9 mg/dL (0.0-1.0); Blood Urea Nitrogen 9 mg/dL (9-16); Calcium 9.1 mg/dL (8.4-10.2); Carbon Dioxide 30 mmol/L (22-29); Chloride 96 mmol/L (96-108); Creatinine Clr Calc Pharmacy 109.1; Estimated Glomerular Filt Rate > 60; Ethanol 31 mg/dL; Glucose Random 80 mg/dL (60-115); Potassium 3.7 mmol/L (3.3-5.1); Salicylate < 5.0 mg/dL (15-30); Sodium 136 mmol/L (135-145); Total Protein 8.1 g/dL (6.5-8.0)
--- NOTE | 2022-05-18 06:56 | ED_ITS ---
HPI - Psych General Chief Complaint: Psychiatric Symptoms <Armando Dougherty MD - Last Filed: 05/18/22 07:05> Stated Complaint: SI , Withdrawing <Armando Dougherty MD - Last Filed: 05/18/22 07:05> Time Seen by Provider: 05/18/22 06:08 <Armando Dougherty MD - Last Filed: 05/18/22 07:05> Source: patient <Armando Dougherty MD - Last Filed: 05/18/22 07:05> Mode of arrival: ambulatory <Armando Dougherty MD - Last Filed: 05/18/22 07:05> Limitations: no limitations <Armadno Dougherty MD - Last Filed: 05/18/22 07:05> History of Present Illness HPI Narrative: 41-year-old male who presents emergency department for evaluation of suicidal ideation. The patient states that he was feeling suicidal this morning prior to coming to the emergency department. He states that he plans on walking into traffic or jumping off a bridge. He states that he has never attempted suicide but he states that he feels very close . The patient was hospitalized on our psychiatric service from 04/17/2022 until 04/28/2022. He states that since leaving the psychiatric service he is not taking a of his medications. The patient was started in a methadone program 1 month prior he states that he has cut down significantly on the amount fentanyl is using. He states that he was using 50 bag today and he is now down to 2-3 bags of intranasal fentanyl daily. The patient states that he drinks 25 nips of vodka per day his last drink was yesterday. He states he feels like he is withdrawing from alcohol, he states he feels anxious and shaky. Review of systems was positive for nausea and 2 episodes of vomiting otherwise was unremarkable. <Armando Dougherty MD - Last Filed: 05/18/22 07:05> complaint: suicidal ideation <Armando Dougherty MD - Last Filed: 05/18/22 07:05> Onset (ago): hour(s) (2) <Armando Dougherty MD - Last Filed: 05/18/22 07:05> Duration: constant <Armando Dougherty MD - Last Filed: 05/18/22 07:05> History of same: Yes <Armando Dougherty MD - Last Filed: 05/18/22 07:05> Relieving factors: none <Armando Dougherty MD - Last Filed: 05/18/22 07:05> Exacerbating factors: alcohol and drug use <Armando Dougherty MD - Last Filed: 05/18/22 07:05> Context: recent alcohol abuse and recent drug abuse <Armando Dougherty MD - Last Filed: 05/18/22 07:05> Associated psychiatric symptoms: depression and suicidal ideation <Armando Dougherty MD - Last Filed: 05/18/22 07:05> Associated symptoms: headache and shortness of breath <Armando Dougherty MD - Last Filed: 05/18/22 07:05> Treatments prior to arrival: none <Armando Doguherty MD - Last Filed: 05/18/22 07:05> If self harm: admits thoughts of self harm and has plan <Armando Dougherty MD - Last Filed: 05/18/22 07:05> Details of plan: Walk into traffic, jump off a bridge <Armando Dougherty MD - Last Filed: 05/18/22 07:05> Related Data Home Medications: Home Medications Medication Instructions Recorded Confirmed methadone 10 mg/5 mL oral solution 85 mg PO DAILY 04/21/22 05/18/22 Previous Rx's Medication Instructions Recorded fluoxetine 20 mg capsule 20 mg PO DAILY 30 days #30 caps 04/28/22 gabapentin 400 mg capsule 800 mg PO TID 30 days #180 caps 04/28/22 hydroxyzine HCl 25 mg tablet 25 mg PO BID PRN Anxiety 30 days 04/28/22 #60 tabs triamcinolone acetonide 0.1 % 1 appl topical DAILY 30 days #100 04/28/22 topical cream grams <Armando Dougherty MD - Last Filed: 05/18/22 07:05> Allergies/Adverse Reactions: Allergies Allergy/AdvReac Type Severity Reaction Status Date / Time fish derived [FISH] Allergy Unknown UNKNOWN - Verified 05/18/22 05:35 NOT ANAPHYLAXIS PER PATIENT trazodone AdvReac Severe priapr Verified 05/18/22 05:35 <Armando Dougherty MD - Last Filed: 05/18/22 07:05> Review of Systems Review of Systems: Yes all other systems are reviewed and are negative <Armando Dougherty MD - Last Filed: 05/18/22 07:05> [facility] Past Medical History [facility] Narrative: past medical history: Hepatitis C, opiate abuse disorder, alcohol use disorder. Surgery to the patient's right upper extremities /axilla region for MRSA infection. Social history: The patient is homeless. He smokes E cigarettes. He drinks 12 nips of vodka per day. He uses 2-3 bags of intranasal heroin per day, he is in a methadone program <Armando Dougherty MD - Last Filed: 05/18/22 07:05> Medical History: Medical History Hep C w/o coma, chronic PTSD (post-traumatic stress disorder) <Armando Dougherty MD - Last Filed: 05/18/22 07:05> Surgical History: Surgical History History of surgery on arm <Armando Dougherty MD - Last Filed: 05/18/22 07:05> Social History Social History: Social History Household Members: Unknown / Unable to assess Housing: Homeless Do you presently have visiting nurse or other home services: No Alcohol intake: current Alcohol intake frequency: 3 or more drinks per day Alcohol type: hard liquor Patient Tobacco Use Status: Current everyday Tobacco user Tobacco use type: Cigarette Cigarette Packs Per Day: 2 Cigarettes Per Day: 40.0 Years Smoked: 25 e-Cigarette/Vaping Use: Currently Using Second Hand Smoke Exposure: No Substance Use Type: Heroin, Marijuana and Opiates Advance Directives: No Advance Directives Information Provided: No service: Yes (Served in the [employer].) Sexual orientation: Did not discuss. <Armando Dougherty MD - Last Filed: 05/18/22 07:05> Physical Exam Vital Signs: Vital Signs: Last Vital Signs Temp 97.8 F 05/18/22 05:35 Pulse 77 05/18/22 05:35 Resp 22 H 05/18/22 05:35 BP 155/90 H 05/18/22 05:35 Pulse Ox 98 05/18/22 05:35 O2 Del Method 05/18/22 05:35 BMI result Body Mass Index 27.2 <Armando Dougherty MD - Last Filed: 05/18/22 07:05> Vital Signs: Last Vital Signs Temp 97.8 F 05/18/22 05:35 Pulse 77 05/18/22 05:35 Resp 22 H 05/18/22 05:35 BP 155/90 H 05/18/22 05:35 Pulse Ox 98 05/18/22 05:35 O2 Del Method 05/18/22 05:35 BMI result Body Mass Index 27.2 <ALEIDA Zaragoza - Last Filed: 05/18/22 10:10> Const: General: cooperative and no acute distress <Armando Dougherty MD - Last Filed: 05/18/22 07:05> Orientation/consciousness: oriented to person and oriented to place <Armando Dougherty MD - Last Filed: 05/18/22 07:05> Limitations: no limitations <Armando Dougherty MD - Last Filed: 05/18/22 07:05> HEENT: Head: Yes normal to inspection, Yes normocephalic and Yes atraumatic <Armando Dougherty MD - Last Filed: 05/18/22 07:05> Ears: external ears normal <Armando Dougherty MD - Last Filed: 05/18/22 07:05> General nose exam: Normal external nose present <Armando Dougherty MD - Last Filed: 05/18/22 07:05> Face and sinus: Yes normal facial exam <Armando Dougherty MD - Last Filed: 05/18/22 07:05> Mouth: Normal oral and palatal mucosa present <Armando Dougherty MD - Last Filed: 05/18/22 07:05> Throat: Yes posterior oropharynx normal <MD Lucía Hall Last Filed: 05/18/22 07:05> Eyes: General: appearance normal, both eyes and all related structures <MD Lucía Hall Last Filed: 05/18/22 07:05> Pupils: Equal, round and reactive pupils present <MD Lucía Hall Last Filed: 05/18/22 07:05> Neck: Neck: Yes normal visual inspection, Yes no lymphadenopathy, Yes trachea midline and Yes supple <MD Lucía Hall Last Filed: 05/18/22 07:05> Chest: Chest palpation & inspection: normal inspection of the chest and normal palpation of entire chest wall <MD Lucía Hall Last Filed: 05/18/22 07:05> Resp: Effort & Inspection: normal respiratory effort and able to speak in complete sentences <MD Lucía Hall Last Filed: 05/18/22 07:05> Auscultation: clear to auscultation bilaterally <MD Lucía Hall Last Filed: 05/18/22 07:05> Cardio: Rate: regular rate <MD Lucía Hall Last Filed: 05/18/22 07:05> Rhythm: regular rhythm <MD Lucía Hall Last Filed: 05/18/22 07:05> Heart sounds: S1 normal heart sound present, S2 normal heart sound present and no murmurs <MD Lucía Hall Last Filed: 05/18/22 07:05> GI: Inspection: Yes normal to inspection <MD Lucía Hall Last Filed: 05/18/22 07:05> Palpation (GI): Soft to palpation, nontender and no guarding <MD Lucía Hall Last Filed: 05/18/22 07:05> Auscultation: normal bowel sounds <MD Lucía Hall Last Filed: 05/18/22 07:05> : General: Yes no CVA tenderness <MD Lucía Hall Last Filed: 05/18/22 07:05> Back/Spine/Pelvis: Back: no CVA tenderness <Armando Dougherty MD - Last Filed: 05/18/22 07:05> Skin: General skin exam: no rashes or lesions noted <Armando Dougherty MD - Last Filed: 05/18/22 07:05> Neuro: General: oriented to person and oriented to place <Armando Dougherty MD - Last Filed: 05/18/22 07:05> Cranial nerves: Yes CN's II-XII intact bilaterally and Yes Equal, round and reactive pupils present <Armando Dougherty MD - Last Filed: 05/18/22 07:05> Cognition (Neuro): normal cognition <Armando Dougherty MD - Last Filed: 05/18/22 07:05> Motor exam (neuro): 5/5 motor strength present throughout <Armando Dougherty MD - Last Filed: 05/18/22 07:05> Extrem: General: Yes normal to inspection <Armando Dougherty MD - Last Filed: 05/18/22 07:05> Psych: Appearance: grossly normal <Armando Dougherty MD - Last Filed: 05/18/22 07:05> Speech and movement: Normal speech and movement present <Armando Dougherty MD - Last Filed: 05/18/22 07:05> Affect: Anxious affect present <Armando Dougherty MD - Last Filed: 05/18/22 07:05> Attitude: cooperative <Armando Dougherty MD - Last Filed: 05/18/22 07:05> Thought process: Normal thought process present <Armando Dougherty MD - Last Filed: 05/18/22 07:05> Thought content: Suicidality present <Armando Dougherty MD - Last Filed: 05/18/22 07:05> Course Course Course Narrative: 41-year-old male who presents emergency department for evaluation of suicidal ideation with a plan to either walk into traffic or jump off a bridge with symptoms starting prior to coming to the emergency department. Patient has had similar presentations in the past and was recently hospitalized on our psychiatric service from 04/17/2022 until 04/28/2022. Since being discharged the patient has not been compliant with his medications. Patient has been drinking 25 nips of vodka per day and has been using 2-3 bags of intranasal fentanyl daily and is in a methadone program. Vital signs revealed an elevated BP of 155/99 elevated respiratory rate of 22 otherwise were unremarkable.Patient's physical examination was unremarkable. Laboratory evaluation: CBC revealed anemia with an H&H of 10.5 and 32.7 with a low MCV of 66.5 -this is chronic. CO2 was elevated at 30.AST and ALT were amelia vated at 97 and 62 - this could be secondary to his ETOH use or his hepatitis- C. ETOH was low at 31, salicylate and acetaminophen were below detectable limits. COVID-19 was negative. Patient's medications from his previous visit reconciled and these were ordered by me. Patient was ordered to get Librium 50 mg 4 times a day for his alcohol withdrawal. He was also ordered to get a nicotine patch 21 mg Q 24 hours and I ordered his outpatient methadone dose as well. Patient is medically cleared for crisis evaluation. <Armando Dougherty MD - Last Filed: 05/18/22 07 :05> Reevaluation(s) Reevaluation #1: Physician observation continues, patient currently sleeping, vital signs have been stable, patient got methadone dose verified, patient got Librium, ordered C was evaluation. Patient in no apparent distress, respirations even and regular, awaiting behavioral health evaluation. Will continue to monitor <ALEIDA Zaragoza - Last Filed: 05/18/22 10:10> MDM - Psych Medical Records Attestation: I reviewed the patient's medical records. <Armando Dougherty MD - Last Filed: 05/18/22 07:05> Lab Data Attestation: I reviewed the patient's lab results. <Armando Dougherty MD - Last Filed: 05/18/22 07:05> Result diagrams: : 05/18/22 06:17 05/18/22 06:17 <Armando Dougherty MD - Last Filed: 05/18/22 07:05> Labs: Lab Results 05/18/22 05/18/22 05/18/22 Range/Units 05:53 06:17 06:17 WBC 8.2 (4.8-10.8) X10*3/uL RBC 4.99 (4.60-5.80) X10*6/uL Hgb 10.5 L (14.0-18.0) g/dl Hct 32.7 L (42.0-52.0) % MCV 65.5 L (80.0-98.0) fL MCH 21.0 L (27.0-33.0) pg MCHC 32.1 (31.0-36.0) g/dl RDW 16.8 H (11.0-16.0) % Plt Count 275 (160-400) X10*3/uL MPV 9.6 (9.4-12.4) fL Immature Gran % (Auto) 0.2 (0.0-0.4) % Neut % (Auto) 59.7 (45-73) % Lymph % (Auto) 23.4 (20-40) % [place] % (Auto) 14.6 H (2-11) % Eos % (Auto) 1.6 (0-4) % Baso % (Auto) 0.5 (0-2) % Lymph # (Auto) 1.9 (1.2-4.9) X10*3/uL [place] # (Auto) 1.2 (0.1-1.2) X10*3/uL Eos # (Auto) 0.1 (0.0-0.4) X10*3/uL Baso # (Auto) 0.0 (0.0-0.2) X10*3/uL Abs Immat Gran (auto) 0.02 (0.00-0.03) X10*3/uL Absolute Neuts (auto) 4.9 (2.0-8.3) x10*3/uL Absolute Nucleated RBC 0.000 (0.0-0.012) X10*3/uL Nucleated RBC % (auto) 0.0 (0.0-0.2) /100WBC Sodium 136 (135-145) mmol/L Potassium 3.7 (3.3-5.1) mmol/L Chloride 96 (96-108) mmol/L Carbon Dioxide 30 H (22-29) mmol/L Anion Gap 14 (12-20) BUN 9 (9-16) mg/dL Creatinine 0.91 (0.5-1.4) mg/dL Estim Creat Clear Calc 109.1 Estimated GFR > 60 Random Glucose 80 (60-115) mg/dL Calcium 9.1 (8.4-10.2) mg/dL Total Bilirubin 0.9 (0.0-1.0) mg/dL Direct Bilirubin 0.5 (0.0-0.5) mg/dL AST 97 H (5-37) U/L ALT 62 H (0-40) U/L Alkaline Phosphatase 96 (39-117) U/L Total Protein 8.1 H (6.5-8.0) g/dL Albumin 4.3 (3.5-5.0) g/dL Salicylates < 5.0 L (15-30) mg/dL Acetaminophen < 1 (<30) mcg/mL Ethyl Alcohol 31 mg/dL COVID-19 ([facility]OY) Negative (Negative) COVID-19 Clin Com See Note <Armando Dougherty MD - Last Filed: 05/18/22 07:05> Lab Results 05/18/22 05/18/22 05/18/22 Range/Units 05:53 06:17 06:17 WBC 8.2 (4.8-10.8) X10*3/uL RBC 4.99 (4.60-5.80) X10*6/uL Hgb 10.5 L (14.0-18.0) g/dl Hct 32.7 L (42.0-52.0) % MCV 65.5 L (80.0-98.0) fL MCH 21.0 L (27.0-33.0) pg MCHC 32.1 (31.0-36.0) g/dl RDW 16.8 H (11.0-16.0) % Plt Count 275 (160-400) X10*3/uL MPV 9.6 (9.4-12.4) fL Immature Gran % (Auto) 0.2 (0.0-0.4) % Neut % (Auto) 59.7 (45-73) % Lymph % (Auto) 23.4 (20-40) % [place] % (Auto) 14.6 H (2-11) % Eos % (Auto) 1.6 (0-4) % Baso % (Auto) 0.5 (0-2) % Lymph # (Auto) 1.9 (1.2-4.9) X10*3/uL [place] # (Auto) 1.2 (0.1-1.2) X10*3/uL Eos # (Auto) 0.1 (0.0-0.4) X10*3/uL Baso # (Auto) 0.0 (0.0-0.2) X10*3/uL Abs Immat Gran (auto) 0.02 (0.00-0.03) X10*3/uL Absolute Neuts (auto) 4.9 (2.0-8.3) x10*3/uL Absolute Nucleated RBC 0.000 (0.0-0.012) X10*3/uL Nucleated RBC % (auto) 0.0 (0.0-0.2) /100WBC Sodium 136 (135-145) mmol/L Potassium 3.7 (3.3-5.1) mmol/L Chloride 96 (96-108) mmol/L Carbon Dioxide 30 H (22-29) mmol/L Anion Gap 14 (12-20) BUN 9 (9-16) mg/dL Creatinine 0.91 (0.5-1.4) mg/dL Estim Creat Clear Calc 109.1 Estimated GFR > 60 Random Glucose 80 (60-115) mg/dL Calcium 9.1 (8.4-10.2) mg/dL Total Bilirubin 0.9 (0.0-1.0) mg/dL Direct Bilirubin 0.5 (0.0-0.5) mg/dL AST 97 H (5-37) U/L ALT 62 H (0-40) U/L Alkaline Phosphatase 96 (39-117) U/L Total Protein 8.1 H (6.5-8.0) g/dL Albumin 4.3 (3.5-5.0) g/dL Salicylates < 5.0 L (15-30) mg/dL Acetaminophen < 1 (<30) mcg/mL Ethyl Alcohol 31 mg/dL COVID-19 ([facility]OY) Negative (Negative) COVID-19 Clin Com See Note <ALEIDA Zaragoza - Last Filed: 05/18/22 10:10> Discharge Plan Discharge Clinical Impression: Suicidal ideation <Armando Dougherty MD - Last Filed: 05/18/22 07:05> Prescriptions: No Action methadone 10 mg/5 mL Solution 85 mg PO DAILY gabapentin 400 mg Capsule 800 mg PO TID 30 Days Qty: 180 0RF triamcinolone acetonide 0.1 % Cream 1 appl topical DAILY 30 Days Qty: 100 0RF Protocol: Apply to: Apply to: areas affected by psoriasis hydroxyzine HCl 25 mg Tablet 25 mg PO BID PRN (Reason: Anxiety) 30 Days Qty: 60 0RF fluoxetine 20 mg Capsule 20 mg PO DAILY 30 Days Qty: 30 0RF <Armando Dougherty MD - Last Filed: 05/18/22 07:05>
--- NOTE | 2022-05-18 07:19 | PC.NURSE ---
patient appears to remain asleep at present respirations are even and unlabored patient appears in no distress
[2022-05-18] MEDS: Nicotine 21 MG PATCH.TD24 TRANSDERMA (08:05)
[2022-05-18] MEDS: Gabapentin 400 MG CAPSULE 800 MG PO ×3 (08:05→20:14)
[2022-05-18] MEDS: chlordiazePOXIDE HCl 25 MG CAPSULE 50 MG PO ×4 (08:05→20:14)
[2022-05-18] MEDS: methADONE HCl 20 MG/2 ML ORAL.CONC 80 MG PO (08:06)
[2022-05-18] MEDS: FLUoxetine HCl 20 MG CAPSULE PO (08:06)
[2022-05-18 11:01] LABS: Barbiturates, Urine Not Detected (Not Detect); Benzodiazepines Screen Urine Not Detected (Not Detect); Cannabinoid Screen Urine POSITIVE (Not Detect); Cocaine Screen Urine POSITIVE (Not Detect); Fentanyl, urine POSITIVE (Not Detect); Opiate Screen Urine POSITIVE (Not Detect); Phencyclidine Screen Urine Not Detected (Not Detect)
[2022-05-18 11:03] LABS: Amphetamine Screen Urine Not Detected (Not Detect)
[2022-05-18 14:06] VITALS: BP 148/79; PULSE 84; TEMP 37.1; O2SAT 97
--- NOTE | 2022-05-19 | ECG_ITS ---
Test Reason : med clearance Blood Pressure : / mmHG Vent. Rate : 057 BPM Atrial Rate : 057 BPM P-R Int : 140 ms QRS Dur : 090 ms QT Int : 474 ms P-R-T Axes : 051 047 023 degrees QTc Int : 461 ms Sinus bradycardia with sinus arrhythmia Minimal voltage criteria for LVH, may be normal variant ( Sokolow-Mas ) Borderline ECG When compared with ECG of 20-APR-2022 10:15, No significant change was found Referred By: Armando Dougherty Electronically Signed By:Elgin Kingsley
[2022-05-19 03:03] VITALS: BP 142/74; PULSE 80; RESP 16; TEMP 37.1; O2SAT 97
--- NOTE | 2022-05-19 05:08 | PC.NURSE ---
Patient slept though the night, no distress observed/reported, medication compliant, behavior appropriate, VSS, disposition per N is inpatient bed search, will continue to monitor.
--- NOTE | 2022-05-19 07:00 | PC.NURSE ---
patient appears to remain asleep respirations are even and unlabored patient appears in no distress
[2022-05-19] MEDS: chlordiazePOXIDE HCl 25 MG CAPSULE 50 MG PO ×2 (07:57→13:23)
[2022-05-19] MEDS: Nicotine 21 MG PATCH.TD24 TRANSDERMA (07:57)
[2022-05-19] MEDS: methADONE HCl 20 MG/2 ML ORAL.CONC 80 MG PO (07:58)
[2022-05-19] MEDS: FLUoxetine HCl 20 MG CAPSULE PO (07:59)
[2022-05-19] MEDS: Gabapentin 400 MG CAPSULE 800 MG PO ×3 (07:59→20:32)
[2022-05-19 15:27] VITALS: BP 157/102; PULSE 81; RESP 15; TEMP 36.5; O2SAT 95
--- NOTE | 2022-05-19 16:05 | PC.NURSE ---
after ekg, tech inquires if patient has been medicated, patients pulse is 57 on ekg. t/w goes to his room where patient is mildly flush, eyes closed, sleeping on bed (very soon after completion of ekg) and appears as if he is relaxed, just fallen sleep. patient has been eating very well, possibly disinhibited. spoke to provider with recommendation that librium be reduced at present.
[2022-05-19] MEDS: cloNIDine HCL 0.1 MG TABLET PO (18:18)
[2022-05-19] MEDS: chlordiazePOXIDE HCl 25 MG CAPSULE PO (18:19)
[2022-05-19] MEDS: LORazepam 1 MG TABLET 0.5 MG PO (20:32)
--- NOTE | 2022-05-19 22:29 | PC.ADMIT ---
Pt is a male admitted for SI and w/drawals. Pt is alert and oriented X4, VSS, Covid negative, Tox screen positive for opiates, fentanyl, cocaine, and marijuana. Pt was brought in by a friend after he threatened to jump [place]. Pt presents as depressed hopeless and homeless. Pt states that he is here to get help to get into [facility] in [place]. Pt appears irritable saying that he lost his $25 the last time he was here and demanded to observe his belongings while being sorted out. Speech is regular with normal, rate and rhythm. Pt denies SI/HI at this time, endorsed anxiety and depression. Pt complained that Prozac is not working for him and added, i am supposed to be on Adderall. Admission orders obtained.
[2022-05-20] MEDS: LORazepam 1 MG TABLET 0.5 MG PO ×5 (02:16→20:15)
[2022-05-20] MEDS: Nicotine Polacrilex 2 MG GUM BUCCAL ×4 (02:16→23:48)
[2022-05-20 06:00] VITALS: BP 144/86; PULSE 79; RESP 16; TEMP 36.9; O2SAT 97
[2022-05-20 08:35] LABS: Alanine Aminotransferase 49 U/L (0-40); Albumin Level 4.1 g/dL (3.5-5.0); Alkaline Phosphatase 100 U/L (39-117); Anion Gap 13 (12-20); Aspartate Amino Transferase 56 U/L (5-37); Bilirubin Total 0.8 mg/dL (0.0-1.0); Blood Urea Nitrogen 14 mg/dL (9-16); Calcium 9.8 mg/dL (8.4-10.2); Carbon Dioxide 30 mmol/L (22-29); Chloride 98 mmol/L (96-108); Cholesterol 193 mg/dL; Creatinine Clr Calc Pharmacy 125.7; Estimated Glomerular Filt Rate > 60; Glucose Fasting 112 mg/dL (60-99); HDL Cholesterol 66 mg/dL; LDL Cholesterol Calculated 108 mg/dl; Potassium 4.7 mmol/L (3.3-5.1); Sodium 136 mmol/L (135-145); Total Protein 7.8 g/dL (6.5-8.0); Triglycerides 96 mg/dL
[2022-05-20] MEDS: Nicotine 21 MG PATCH.TD24 TRANSDERMA (08:36)
[2022-05-20] MEDS: Gabapentin 400 MG CAPSULE 800 MG PO ×3 (08:36→20:15)
[2022-05-20] MEDS: FLUoxetine HCl 20 MG CAPSULE PO (08:37)
[2022-05-20] MEDS: methADONE HCl 20 MG/2 ML ORAL.CONC 85 MG PO (09:35)
[2022-05-20] MEDS: Dextroamphetamine/Amphetamine XR 5 MG CAP.ER.24H 15 MG PO (12:41)
[2022-05-20] MEDS: Ferrous Sulfate 324 MG TABLET.DR PO (12:41)
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
[2022-05-20] MEDS: Triamcinolone Acet 0.1 % Cream 15 GM TUBE 1 APPL TOPICAL (20:13)
[2022-05-20] MEDS: Acetaminophen 325 MG TABLET 650 MG PO (20:14)
[2022-05-20 20:15] VITALS: BP 131/91; PULSE 96; TEMP 36.5
[2022-05-20] MEDS: hydrOXYzine HCL 25 MG TABLET PO (23:48)
[2022-05-20] MEDS: LORazepam 1 MG TABLET PO (23:48)
[2022-05-21] MEDS: LORazepam 1 MG TABLET 0.5 MG PO ×4 (03:16→20:05)
[2022-05-21] MEDS: LORazepam 1 MG TABLET PO (03:17)
[2022-05-21 06:00] VITALS: BP 140/84; PULSE 90; TEMP 36.4; O2SAT 96
[2022-05-21] MEDS: methADONE HCl 20 MG/2 ML ORAL.CONC 85 MG PO (09:25)
[2022-05-21] MEDS: Gabapentin 400 MG CAPSULE 800 MG PO ×3 (09:26→20:03)
[2022-05-21] MEDS: Ferrous Sulfate 324 MG TABLET.DR PO (09:26)
[2022-05-21] MEDS: Multivitamin TABLET 1 TAB PO (09:26)
[2022-05-21] MEDS: Dextroamphetamine/Amphetamine XR 5 MG CAP.ER.24H 15 MG PO (09:26)
[2022-05-21] MEDS: FLUoxetine HCl 20 MG CAPSULE PO (09:26)
[2022-05-21] MEDS: Nicotine 21 MG PATCH.TD24 TRANSDERMA (09:29)
[2022-05-21] MEDS: Nicotine Polacrilex 2 MG GUM BUCCAL ×3 (09:31→20:03)
[2022-05-21 10:06] LABS: Iron 89 mcg/dL (45-160); Percent Iron Saturation 22 % (15-50); Total Iron Binding Capacity 403 mcg/dL (228-428); Unsaturated Iron Binding 314 ug/dL
[2022-05-21 10:33] LABS: Thyroid Stimulating Hormone 3.48 uIU/mL (0.32-4.0)
[2022-05-21 10:51] LABS: Folate 15.8 ng/mL (> or = 4.0); Vitamin B12 293 pg/mL (200-900)
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
--- NOTE | 2022-05-21 16:00 | P.PNPSI_ITS ---
Subjective Subjective Date of Service: 05/21/22 Reason For Visit: Depression Subjective Notes: Conditional Voluntary Healthcare Proxy: No Guardianship: No Medical Problems Affecting Mental Status: No Interim History: Labile, Irritable. Discussed bowel incontinence of 05/20. Discussed intensity of illness, addiction and the need for treatment. Mark is focused on admission to one local skilled nursing. He is not able to add options to his treatment palate. He is also unwilling. He would like a regime of Methadone, Adderall, Gabapentin and Klonopin. He asks to stop Prozac. He has narrowed his acceptable options down to a point where we are unable to offer anything he will agree to or accept. Medication Compliance: Yes Side effects from medications: No Attending Groups: Intermittent Review of Systems Acute medical concerns: No Medical Review of Systems: unchanged Review of Systems Constitutional: Reports no additional constitutional complaints Eyes: Reports no additional eye complaints Reports system reviewed and no additional complaints, except as documented Cardiovascular: Reports no additional cardiovascular complaints Respiratory: Reports no additional respiratory complaints Gastrointestinal: Reports no additional gastrointestinal complaints and Reports diarrhea (05/20/22) Genitourinary: Reports no additional male genitourinary complaints Musculoskeletal: Reports no additional musculoskeletal complaints Skin/Breast: Reports nail changes, Reports change in nails (toenails are falling off) and Reports other (eczema) Reports system reviewed and no additional complaints, except as documented and Reports behavioral changes Psychiatric: Reports anxiety, Reports behavioral changes, Reports depression, Reports difficulty concentrating, Reports hopelessness, Reports irritability, Re ports anhedonia, Reports mood swings, Reports paranoia and Reports suicidal ideation Endocrine: Reports no additional endocrine complaints Hematologic/Lymphatic: Reports no additional hematologic/lymphatic complaints Allergic/Immunologic: Reports no additional allergic/immunologic complaints Mental Status Exam Mental Status Exam Patient Appearance: Appropriate Patient Orientation: Person, Place, Time and Situation Level of Consciousness: Restless and Alert Patient Behavior: Guarded, Talkative, Suspicious, Distractible and Poor Eye Contact Mood Description: Suspicious, Depressed, Hostile, Angry and Apprehensive Affect Description: Labile Patient Cognition Impaired: No Ability to Follow Directions: Good Speech Pattern: Spontaneous Speech Memory Description: Episodic Impaired Hallucinations: None Delusions: Paranoid Ideation Perceptual Disturbances: Depersonalization and Derealization Thought Process: Distracted, Rumination and Evasive Thought Content: positive for [place], positive for Circumstantial and positive for Suicidal Ideation Depressive Symptoms: Diff. Making Decisions, Increased Irritability, Loss of Int. in Activity, Feelings of Worthlessness, Hopelessness, Increased Fatigue, Thoughts of /Suicide, Low Self Esteem, Loss of Energy and Difficulty Concentrating Abnormal Motor Activity Signs and Symptoms: Agitation and Restlessness Judgement: Good Diagnostics Vital Signs (24Hr): Vital Signs - 24 hr 05/20/22 20:15 05/21/22 06:00 Temperature 97.7 F 97.6 F Pulse Rate 96 90 Blood Pressure 131/91 H 140/84 H Pulse Oximetry 96 Oxygen Delivery Method Room Air BMI result Body Mass Index 27.2 Labs Results: 05/18/22 06:17 05/20/22 07:50 Labs: Laboratory Results - last 48 hr 05/20/22 05/21/22 05/21/22 07:50 08:31 08:31 Sodium 136 Potassium 4.7 D Chloride 98 Carbon Dioxide 30 H Anion Gap 13 BUN 14 D Creatinine 0.79 Estim Creat Clear Calc 125.7 Estimated GFR > 60 Fasting Glucose 112 H Calcium 9.8 D Iron TIBC % Saturation Unsat Iron Binding Total Bilirubin 0.8 AST 56 H ALT 49 H Alkaline Phosphatase 100 Total Protein 7.8 Albumin 4.1 Triglycerides 96 Cholesterol 193 LDL Cholesterol, Calc 108 HDL Cholesterol 66 D Vitamin B12 293 Folate 15.8 TSH 3.48 05/21/22 08:31 Sodium Potassium Chloride Carbon Dioxide Anion Gap BUN Creatinine Estim Creat Clear Calc Estimated GFR Fasting Glucose Calcium Iron 89 TIBC 403 % Saturation 22 Unsat Iron Binding 314 Total Bilirubin AST ALT Alkaline Phosphatase Total Protein Albumin Triglycerides Cholesterol LDL Cholesterol, Calc HDL Cholesterol Vitamin B12 Folate TSH Medications Medications Current Medications Acetaminophen (Acetaminophen 325 Mg Tablet) 650 mg PO Q6H PRN PRN Reason: Headache/Pain Mild Scale (1-3) Last Admin: 05/20/22 20:14 Dose: 650 mg Al Hydroxide/Mg Hydroxide (Magnesium Hydrox/Alum Hydrox 30 Ml Oral.Susp) 30 ml PO Q6H PRN PRN Reason: Heartburn/Nausea Amphetamine/Dextroamphetamine (Dextroamphetamine/Amphetamine Xr 5 Mg Cap.Er.24h) 15 mg PO DAILY [facility] Last Admin: 05/21/22 09:26 Dose: 15 mg Ferrous Sulfate (Ferrous Sulfate 324 Mg Tablet.Dr) 324 mg PO DAILY [facility] Last Admin: 05/21/22 09:26 Dose: 324 mg Fluoxetine HCl (Fluoxetine Hcl 20 Mg Capsule) 20 mg PO DAILY [facility] Last Admin: 05/21/22 09:26 Dose: 20 mg Gabapentin (Gabapentin 400 Mg Capsule) 800 mg PO TID [facility] Last Admin: 05/21/22 15:07 Dose: 800 mg Hydroxyzine HCl (Hydroxyzine Hcl 25 Mg Tablet) 25 mg PO BID PRN PRN Reason: Anxiety Last Admin: 05/20/22 23:48 Dose: 25 mg Lorazepam (Lorazepam 1 Mg Tablet) 1 mg PO Q6H [place]; Taper Stop: 05/23/22 19:53 Last Admin: 05/21/22 15:08 Dose: 1 mg Lorazepam (Lorazepam 1 Mg Tablet) 1 mg PO Q4H PRN PRN Reason: Breakthrough alcohol withdrawa Stop: 05/23/22 19:53 Last Admin: 05/21/22 03:17 Dose: 1 mg Magnesium Hydroxide (Milk Of Magnesia 30 Ml Oral.Susp) 30 ml PO DAILY PRN PRN Reason: Constipation Methadone HCl (Methadone Hcl 20 Mg/2 Ml Oral.Conc) 85 mg PO DAILY [facility] Last Admin: 05/21/22 09:25 Dose: 85 mg Multivitamins/Vitamin C (Multivitamin Tablet) 1 tab PO DAILY [facility] Last Admin: 05/21/22 09:26 Dose: 1 tab Nicotine (Nicotine 21 Mg Patch.Td24) 21 mg TRANSDERMA DAILY [facility] Last Admin: 05/21/22 09:29 Dose: 21 mg Nicotine Polacrilex (Nicotine Polacrilex 2 Mg Gum) 2 mg BUCCAL Q2H PRN PRN Reason: Nicotine Cravings Last Admin: 05/21/22 10:52 Dose: 2 mg Triamcinolone Acetonide (Triamcinolone Acet 0.1 % Cream 15 Gm Tube) 1 appl TOPICAL BID [facility]; Protocol Last Admin: 05/21/22 11:45 Dose: Not Given Allergies Allergies Allergy/AdvReac Type Severity Reaction Status Date / Time fish derived [FISH] Allergy Unknown UNKNOWN - Verified 05/18/22 05:35 NOT ANAPHYLAXIS PER PATIENT trazodone AdvReac Severe priapr Verified 05/18/22 05:35 Assessment & Plan Assessment & Plan (1) Suicidal ideation: Status: Acute Code(s): R45.851 - Suicidal ideations (2) PTSD (post-traumatic stress disorder): Status: Acute Code(s): F43.10 - Post-traumatic stress disorder, unspecified (3) Recurrent major depression-severe: Status: Acute Code(s): F33.2 - Major depressive disorder, recurrent severe without psychotic features (4) Active substance abuse: Status: Acute Code(s): F19.10 - Other psychoactive substance abuse, uncomplicated (5) Alcohol dependence: Status: Acute Code(s): F10.20 - Alcohol dependence, uncomplicated (6) Hep C w/o coma, chronic: Status: Acute Code(s): B18.2 - Chronic viral hepatitis C (7) Opioid use disorder: Status: Acute Code(s): F11.90 - Opioid use, unspecified, uncomplicated (8) Stimulant use disorder: Status: Acute Code(s): F15.90 - Other stimulant use, unspecified, uncomplicated Plan 41 yo male, hx of PTSD, recurrent MDD, opiate/alcohol/stimulant use disorders. This is one of many recent admissions. Pt expresses anger that stimulants were not continued after last admission and that Methadone is cut (states he usually takes 120 mg daily.) Reports several legal issues, minimal connections in community and active SI with plan to jump from the [place] bridge. He presents several challenges he needs to address Plan: Addiction consult Attempt to connect with [facility] services if pt will allow Attempt to re-establish regime to evaluate efficacy and level of functioning/sx mgt. Labs: Iron Profile, TSH, B12, Folate Ferrous Sulfate daily Continue remainder of regime 05/21/22: Contineu current regime. I spent minutes with the patient and/or on the patient floor today, greater than?50% of which was spent counseling/coordinating care. Patient educated on: therapeutic strategies Informed Consent: further education needed Reason for contiued inpatient stay Substantial Risk for: harm to self, inability to function and rapid decompensation
--- NOTE | 2022-05-21 16:00 | P.PNPSI_ITS ---
Subjective Subjective Reason For Visit: Depression Diagnostics Vital Signs (24Hr): Vital Signs - 24 hr 05/20/22 20:15 05/21/22 06:00 Temperature 97.7 F 97.6 F Pulse Rate 96 90 Blood Pressure 131/91 H 140/84 H Pulse Oximetry 96 Oxygen Delivery Method Room Air BMI result Body Mass Index 27.2 Labs Results: 05/18/22 06:17 05/20/22 07:50 Labs: Laboratory Results - last 48 hr 05/20/22 05/21/22 05/21/22 07:50 08:31 08:31 Sodium 136 Potassium 4.7 D Chloride 98 Carbon Dioxide 30 H Anion Gap 13 BUN 14 D Creatinine 0.79 Estim Creat Clear Calc 125.7 Estimated GFR > 60 Fasting Glucose 112 H Calcium 9.8 D Iron TIBC % Saturation Unsat Iron Binding Total Bilirubin 0.8 AST 56 H ALT 49 H Alkaline Phosphatase 100 Total Protein 7.8 Albumin 4.1 Triglycerides 96 Cholesterol 193 LDL Cholesterol, Calc 108 HDL Cholesterol 66 D Vitamin B12 293 Folate 15.8 TSH 3.48 05/21/22 08:31 Sodium Potassium Chloride Carbon Dioxide Anion Gap BUN Creatinine Estim Creat Clear Calc Estimated GFR Fasting Glucose Calcium Iron 89 TIBC 403 % Saturation 22 Unsat Iron Binding 314 Total Bilirubin AST ALT Alkaline Phosphatase Total Protein Albumin Triglycerides Cholesterol LDL Cholesterol, Calc HDL Cholesterol Vitamin B12 Folate TSH Medications Medications Current Medications Acetaminophen (Acetaminophen 325 Mg Tablet) 650 mg PO Q6H PRN PRN Reason: Headache/Pain Mild Scale (1-3) Last Admin: 05/20/22 20:14 Dose: 650 mg Al Hydroxide/Mg Hydroxide (Magnesium Hydrox/Alum Hydrox 30 Ml Oral.Susp) 30 ml PO Q6H PRN PRN Reason: Heartburn/Nausea Amphetamine/Dextroamphetamine (Dextroamphetamine/Amphetamine Xr 5 Mg Cap.Er.24h) 15 mg PO DAILY [facility] Last Admin: 05/21/22 09:26 Dose: 15 mg Ferrous Sulfate (Ferrous Sulfate 324 Mg Tablet.Dr) 324 mg PO DAILY [facility] Last Admin: 05/21/22 09:26 Dose: 324 mg Fluoxetine HCl (Fluoxetine Hcl 20 Mg Capsule) 20 mg PO DAILY [facility] Last Admin: 05/21/22 09:26 Dose: 20 mg Gabapentin (Gabapentin 400 Mg Capsule) 800 mg PO TID [facility] Last Admin: 05/21/22 15:07 Dose: 800 mg Hydroxyzine HCl (Hydroxyzine Hcl 25 Mg Tablet) 25 mg PO BID PRN PRN Reason: Anxiety Last Admin: 05/20/22 23:48 Dose: 25 mg Lorazepam (Lorazepam 1 Mg Tablet) 1 mg PO Q6H [facility]; Taper Stop: 05/23/22 19:53 Last Admin: 05/21/22 15:08 Dose: 1 mg Lorazepam (Lorazepam 1 Mg Tablet) 1 mg PO Q4H PRN PRN Reason: Breakthrough alcohol withdrawa Stop: 05/23/22 19:53 Last Admin: 05/21/22 03:17 Dose: 1 mg Magnesium Hydroxide (Milk Of Magnesia 30 Ml Oral.Susp) 30 ml PO DAILY PRN PRN Reason: Constipation Methadone HCl (Methadone Hcl 20 Mg/2 Ml Oral.Conc) 85 mg PO DAILY [facility] Last Admin: 05/21/22 09:25 Dose: 85 mg Multivitamins/Vitamin C (Multivitamin Tablet) 1 tab PO DAILY [facility] Last Admin: 05/21/22 09:26 Dose: 1 tab Nicotine (Nicotine 21 Mg Patch.Td24) 21 mg TRANSDERMA DAILY [facility] Last Admin: 05/21/22 09:29 Dose: 21 mg Nicotine Polacrilex (Nicotine Polacrilex 2 Mg Gum) 2 mg BUCCAL Q2H PRN PRN Reason: Nicotine Cravings Last Admin: 05/21/22 10:52 Dose: 2 mg Triamcinolone Acetonide (Triamcinolone Acet 0.1 % Cream 15 Gm Tube) 1 appl TOPICAL BID [facility]; Protocol Last Admin: 05/21/22 11:45 Dose: Not Given Allergies Allergies Allergy/AdvReac Type Severity Reaction Status Date / Time fish derived [FISH] Allergy Unknown UNKNOWN - Verified 05/18/22 05:35 NOT ANAPHYLAXIS PER PATIENT trazodone AdvReac Severe priapr Verified 05/18/22 05:35 Assessment & Plan Assessment & Plan (1) Suicidal ideation: Status: Acute Code(s): R45.851 - Suicidal ideations (2) PTSD (post-traumatic stress disorder): Status: Acute Code(s): F43.10 - Post-traumatic stress disorder, unspecified (3) Recurrent major depression-severe: Status: Acute Code(s): F33.2 - Major depressive disorder, recurrent severe without psychotic features (4) Active substance abuse: Status: Acute Code(s): F19.10 - Other psychoactive substance abuse, uncomplicated (5) Alcohol dependence: Status: Acute Code(s): F10.20 - Alcohol dependence, uncomplicated (6) Hep C w/o coma, chronic: Status: Acute Code(s): B18.2 - Chronic viral hepatitis C (7) Opioid use disorder: Status: Acute Code(s): F11.90 - Opioid use, unspecified, uncomplicated (8) Stimulant use disorder: Status: Acute Code(s): F15.90 - Other stimulant use, unspecified, uncomplicated Plan 41 yo male, hx of PTSD, recurrent MDD, opiate/alcohol/stimulant use disorders. This is one of many recent admissions. Pt expresses anger that stimulants were not continued after last admission and that Methadone is cut (states he usually takes 120 mg daily.) Reports several legal issues, minimal connections in community and active SI with plan to jump from the [facility]. He presents several challenges he needs to address Plan: Addiction consult Attempt to connect with [facility] services if pt will allow Attempt to re-establish regime to evaluate efficacy and level of functioning/sx mgt. Labs: Iron Profile, TSH, B12, Folate Ferrous Sulfate daily Continue remainder of regime I spent minutes with the patient and/or on the patient floor today, greater than?50% of which was spent counseling/coordinating care.
[2022-05-21 18:00] VITALS: BP 132/74; PULSE 108; TEMP 36.5; O2SAT 96
[2022-05-21] MEDS: Acetaminophen 325 MG TABLET 650 MG PO (20:02)
[2022-05-22 06:00] VITALS: BP 137/87; PULSE 108; TEMP 36.6; O2SAT 97
[2022-05-22] MEDS: LORazepam 1 MG TABLET PO ×3 (06:16→22:53)
[2022-05-22] MEDS: Nicotine Polacrilex 2 MG GUM BUCCAL ×3 (06:16→16:01)
[2022-05-22 07:00] VITALS: BMI 27.8
[2022-05-22] MEDS: Gabapentin 400 MG CAPSULE 800 MG PO ×3 (08:12→20:50)
[2022-05-22] MEDS: LORazepam 1 MG TABLET 0.5 MG PO ×3 (08:12→20:59)
[2022-05-22] MEDS: methADONE HCl 20 MG/2 ML ORAL.CONC 85 MG PO (08:14)
[2022-05-22] MEDS: Ferrous Sulfate 324 MG TABLET.DR PO (08:14)
[2022-05-22] MEDS: Multivitamin TABLET 1 TAB PO (08:14)
[2022-05-22] MEDS: Triamcinolone Acet 0.1 % Cream 15 GM TUBE 1 APPL TOPICAL ×2 (09:59→20:52)
[2022-05-22] MEDS: Dextroamphetamine/Amphetamine XR 5 MG CAP.ER.24H 15 MG PO ×2 (11:12→13:08)
[2022-05-22 13:29] VITALS: BP 142/94; PULSE 102; RESP 18; TEMP 527.2; TEMP 981; O2SAT 98
[2022-05-22] MEDS: Acetaminophen 325 MG TABLET 650 MG PO (14:26)
--- NOTE | 2022-05-22 15:11 | HO.PSYCHPN ---
Subjective Subjective Date of Service: 05/22/22 Reason For Visit: Depression Subjective Notes: Conditional Voluntary Healthcare Proxy: No Guardianship: No Medical Problems Affecting Mental Status: No Interim History: Wilfred continues to decline available referrals, chosing a significantly small amount of referral resources which are acceptable to him. Considering [facility] with [place], but declines long-term placements at this time. Plans to camp by the [place]. Discussed treatment resistance with pt and what treatment options could offer in terms of recovery and healing. He will consider, but declines at this time. Medication Compliance: Yes Side effects from medications: No Attending Groups: No Review of Systems Acute medical concerns: No Medical Review of Systems: unchanged Review of Systems Reports behavioral changes Psychiatric: Reports anxiety, Reports behavioral changes, Reports irritability and Reports mood swings Mental Status Exam Mental Status Exam Patient Appearance: Appropriate Patient Orientation: Person, Place, Time and Situation Level of Consciousness: Alert Patient Behavior: Appropriate, Talkative, Cooperative and Good Eye Contact Mood Description: Labile, Angry and Apprehensive Affect Description: Labile Patient Cognition Impaired: No Ability to Follow Directions: Good Speech Pattern: Spontaneous Speech Memory Description: Intact Hallucinations: None Delusions: Not Present Thought Process: Intact Thought Content: positive for Intact and positive for Circumstantial Abnormal Motor Activity Signs and Symptoms: Restlessness Judgement: Good Diagnostics Vital Signs (24Hr): Vital Signs - 24 hr 05/21/22 18:00 05/22/22 06:00 05/22/22 13:29 Temperature 97.7 F 97.9 F 981 F H Pulse Rate 108 H 108 H 102 H Respiratory Rate 18 Blood Pressure 132/74 137/87 142/94 H Pulse Oximetry 96 97 98 Oxygen Delivery Method Room Air Room Air Room Air BMI result Body Mass Index 27.8 Labs Results: 05/18/22 06:17 05/20/22 07:50 Labs: Laboratory Results - last 48 hr 05/21/22 05/21/22 05/21/22 08:31 08:31 08:31 Iron 89 TIBC 403 % Saturation 22 Unsat Iron Binding 314 Vitamin B12 293 Folate 15.8 TSH 3.48 Medications Medications Current Medications Acetaminophen (Acetaminophen 325 Mg Tablet) 650 mg PO Q6H PRN PRN Reason: Headache/Pain Mild Scale (1-3) Last Admin: 05/22/22 14:26 Dose: 650 mg Al Hydroxide/Mg Hydroxide (Magnesium Hydrox/Alum Hydrox 30 Ml Oral.Susp) 30 ml PO Q6H PRN PRN Reason: Heartburn/Nausea Amphetamine/Dextroamphetamine (Dextroamphetamine/Amphetamine Xr 10 Mg Cap.Er.24h) 30 mg PO DAILY [facility] Ferrous Sulfate (Ferrous Sulfate 324 Mg Tablet.Dr) 324 mg PO DAILY [facility] Last Admin: 05/22/22 08:14 Dose: 324 mg Gabapentin (Gabapentin 400 Mg Capsule) 800 mg PO TID [facility] Last Admin: 05/22/22 14:25 Dose: 800 mg Hydroxyzine HCl (Hydroxyzine Hcl 25 Mg Tablet) 25 mg PO BID PRN PRN Reason: Anxiety Last Admin: 05/20/22 23:48 Dose: 25 mg Lorazepam (Lorazepam 1 Mg Tablet) 0.5 mg PO Q6H [facility]; Taper Stop: 05/23/22 19:53 Last Admin: 05/22/22 13:07 Dose: 0.5 mg Lorazepam (Lorazepam 1 Mg Tablet) 1 mg PO Q4H PRN PRN Reason: Breakthrough alcohol withdrawa Stop: 05/23/22 19:53 Last Admin: 05/22/22 06:16 Dose: 1 mg Magnesium Hydroxide (Milk Of Magnesia 30 Ml Oral.Susp) 30 ml PO DAILY PRN PRN Reason: Constipation Methadone HCl (Methadone Hcl 20 Mg/2 Ml Oral.Conc) 85 mg PO DAILY [facility] Last Admin: 05/22/22 08:14 Dose: 85 mg Multivitamins/Vitamin C (Multivitamin Tablet) 1 tab PO DAILY [facility] Last Admin: 05/22/22 08:14 Dose: 1 tab Nicotine (Nicotine 21 Mg Patch.Td24) 21 mg TRANSDERMA DAILY [facility] Last Admin: 05/21/22 09:29 Dose: 21 mg Nicotine Polacrilex (Nicotine Polacrilex 2 Mg Gum) 2 mg BUCCAL Q2H PRN PRN Reason: Nicotine Cravings Last Admin: 05/22/22 14:25 Dose: 2 mg Triamcinolone Acetonide (Triamcinolone Acet 0.1 % Cream 15 Gm Tube) 1 appl TOPICAL BID [facility]; Protocol Last Admin: 05/22/22 09:59 Dose: 1 appl Allergies Allergies Allergy/AdvReac Type Severity Reaction Status Date / Time fish derived [FISH] Allergy Unknown UNKNOWN - Verified 05/18/22 05:35 NOT ANAPHYLAXIS PER PATIENT trazodone AdvReac Severe priapr Verified 05/18/22 05:35 Assessment & Plan Assessment & Plan (1) Suicidal ideation: Status: Acute Code(s): R45.851 - Suicidal ideations (2) PTSD (post-traumatic stress disorder): Status: Acute Code(s): F43.10 - Post-traumatic stress disorder, unspecified (3) Recurrent major depression-severe: Status: Acute Code(s): F33.2 - Major depressive disorder, recurrent severe without psychotic features (4) Active substance abuse: Status: Acute Code(s): F19.10 - Other psychoactive substance abuse, uncomplicated (5) Alcohol dependence: Status: Acute Code(s): F10.20 - Alcohol dependence, uncomplicated (6) Hep C w/o coma, chronic: Status: Acute Code(s): B18.2 - Chronic viral hepatitis C (7) Opioid use disorder: Status: Acute Code(s): F11.90 - Opioid use, unspecified, uncomplicated (8) Stimulant use disorder: Status: Acute Code(s): F15.90 - Other stimulant use, unspecified, uncomplicated Plan 41 yo male, hx of PTSD, recurrent MDD, opiate/alcohol/stimulant use disorders. This is one of many recent admissions. Pt expresses anger that stimulants were not continued after last admission and that Methadone is cut (states he usually takes 120 mg daily.) Reports several legal issues, minimal connections in community and active SI with plan to jump from the [facility]. He presents several challenges he needs to address Plan: Addiction consult Attempt to connect with VA services if pt will allow Attempt to re-establish regime to evaluate efficacy and level of functioning/sx mgt. Labs: Iron Profile, TSH, B12, Folate Ferrous Sulfate daily Continue remainder of regime 05/21/22: Continue current regime. 05/22/22: Considering options, however, self-limiting at this time. I spent minutes with the patient and/or on the patient floor today, greater than?50% of which was spent counseling/coordinating care. Patient educated on: therapeutic strategies Informed Consent: further education needed Reason for contiued inpatient stay Substantial Risk for: inability to function and rapid decompensation
[2022-05-22 18:00] VITALS: BP 146/74; PULSE 92; RESP 16; TEMP 36.3; O2SAT 100
[2022-05-22] MEDS: hydrOXYzine HCL 25 MG TABLET PO (20:50)
[2022-05-23 06:00] VITALS: BP 139/86; PULSE 99; RESP 16; TEMP 36.4; O2SAT 99
[2022-05-23] MEDS: methADONE HCl 20 MG/2 ML ORAL.CONC 85 MG PO (07:58)
[2022-05-23] MEDS: Ferrous Sulfate 324 MG TABLET.DR PO (08:01)
[2022-05-23] MEDS: Gabapentin 400 MG CAPSULE 800 MG PO (08:01)
[2022-05-23] MEDS: LORazepam 1 MG TABLET 0.5 MG PO (08:01)
[2022-05-23] MEDS: Dextroamphetamine/Amphetamine XR 10 MG CAP.ER.24H 30 MG PO (08:01)
[2022-05-23] MEDS: Nicotine 21 MG PATCH.TD24 TRANSDERMA (08:03)
[2022-05-23] MEDS: Multivitamin TABLET 1 TAB PO (08:14)
--- NOTE | 2022-05-23 15:29 | PM.PSYDC ---
DS: Providers Provider Date of Service: 05/23/22 Date of admission: 05/19/22 19:18 Date of discharge: 05/23/22 Primary care physician: None Physician Admitting clinician: Jazmine Retana Attending physician on admission: Lui Gao Consults: 05/20/22 12:24 Addiction Medicine Routine Consulting Provider: Floresita Barry Reason for consultation: pt looking for methadone titration Has provider been notified: No Attending physician on discharge: Lui Gao Discharging clinician: Jazmine Retana DS: Diagnosis Discharge Diagnosis (1) Suicidal ideation: Status: Resolved (2) PTSD (post-traumatic stress disorder): Status: Acute (3) Recurrent major depression-severe: Status: Acute (4) Active substance abuse: Status: Resolved (5) Alcohol dependence: Status: Acute (6) Hep C w/o coma, chronic: (7) Opioid use disorder: Status: Acute (8) Stimulant use disorder: Status: Acute DS: Medications Discharge Medications Home Medications: Home Medications Medication Instructions Recorded Confirmed methadone 10 mg/5 mL oral solution 85 mg PO DAILY 04/21/22 05/18/22 Previous Rx's Medication Instructions Recorded ferrous sulfate 324 mg (65 mg 324 mg PO DAILY #30 tabs 05/23/22 iron) tablet,delayed release gabapentin 400 mg capsule 800 mg PO TID 30 days #42 caps 05/23/22 hydroxyzine HCl 25 mg tablet 25 mg PO BID PRN Anxiety 30 days 05/23/22 #60 tabs multivitamin (Daily-Jesenia) 1 tab PO DAILY #30 tabs 05/23/22 nicotine (polacrilex) 2 mg gum 2 mg buccal Q2H PRN Nicotine 05/23/22 Cravings #60 ea nicotine 21 mg/24 hr daily 21 mg transdermal DAILY #30 ea 05/23/22 transdermal patch triamcinolone acetonide 0.1 % 1 appl topical DAILY 30 days #100 05/23/22 topical cream grams Mental Status Exam Mental Status Exam Patient Appearance: Appropriate Patient Orientation: Person, Place, Time and Situation Level of Consciousness: Alert Patient Behavior: Appropriate, Talkative, Cooperative and Good Eye Contact Mood Description: Labile, Angry and Apprehensive Affect Description: Labile Patient Cognition Impaired: No Ability to Follow Directions: Good Speech Pattern: Spontaneous Speech Memory Description: Intact Hallucinations: None Delusions: Not Present Thought Process: Intact Thought Content: positive for Intact and positive for Circumstantial Abnormal Motor Activity Signs and Symptoms: Restlessness Judgement: Good Data Data Completed and Pending Completed studies during hospitalization [Text1]: 05/18/22 05/18/22 05/18/22 05:53 06:17 06:17 WBC 8.2 RBC 4.99 Hgb 10.5 L Hct 32.7 L MCV 65.5 L MCH 21.0 L MCHC 32.1 RDW 16.8 H Plt Count 275 MPV 9.6 Immature Gran % (Auto) 0.2 Neut % (Auto) 59.7 Lymph % (Auto) 23.4 [place] % (Auto) 14.6 H Eos % (Auto) 1.6 Baso % (Auto) 0.5 Lymph # (Auto) 1.9 [place] # (Auto) 1.2 Eos # (Auto) 0.1 Baso # (Auto) 0.0 Abs Immat Gran (auto) 0.02 Absolute Neuts (auto) 4.9 Absolute Nucleated RBC 0.000 Nucleated RBC % (auto) 0.0 Sodium 136 Potassium 3.7 Chloride 96 Carbon Dioxide 30 H Anion Gap 14 BUN 9 Creatinine 0.91 Estim Creat Clear Calc 109.1 Estimated GFR > 60 Random Glucose 80 Fasting Glucose Calcium 9.1 Iron TIBC % Saturation Unsat Iron Binding Total Bilirubin 0.9 Direct Bilirubin 0.5 AST 97 H ALT 62 H Alkaline Phosphatase 96 Total Protein 8.1 H Albumin 4.3 Triglycerides Cholesterol LDL Cholesterol, Calc HDL Cholesterol Vitamin B12 Folate TSH Salicylates < 5.0 L Urine Opiates Screen Urine Fentanyl Screen Acetaminophen < 1 Ur Barbiturates Screen Ur Phencyclidine Scrn Ur Amphetamines Screen U Benzodiazepines Scrn Urine Cocaine Screen U Marijuana (THC) Screen Ethyl Alcohol 31 COVID-19 ([facility]OY) Negative COVID-19 Clin Com See Note 05/18/22 05/20/22 05/21/22 10:33 07:50 08:31 WBC RBC Hgb Hct MCV MCH MCHC RDW Plt Count MPV Immature Gran % (Auto) Neut % (Auto) Lymph % (Auto) [place] % (Auto) Eos % (Auto) Baso % (Auto) Lymph # (Auto) [place] # (Auto) Eos # (Auto) Baso # (Auto) Abs Immat Gran (auto) Absolute Neuts (auto) Absolute Nucleated RBC Nucleated RBC % (auto) Sodium 136 Potassium 4.7 D Chloride 98 Carbon Dioxide 30 H Anion Gap 13 BUN 14 D Creatinine 0.79 Estim Creat Clear Calc 125.7 Estimated GFR > 60 Random Glucose Fasting Glucose 112 H Calcium 9.8 D Iron TIBC % Saturation Unsat Iron Binding Total Bilirubin 0.8 Direct Bilirubin AST 56 H ALT 49 H Alkaline Phosphatase 100 Total Protein 7.8 Albumin 4.1 Triglycerides 96 Cholesterol 193 LDL Cholesterol, Calc 108 HDL Cholesterol 66 D Vitamin B12 293 Folate 15.8 TSH Salicylates Urine Opiates Screen POSITIVE H Urine Fentanyl Screen POSITIVE H Acetaminophen Ur Barbiturates Screen Not Detected Ur Phencyclidine Scrn Not Detected Ur Amphetamines Screen Not Detected U Benzodiazepines Scrn Not Detected Urine Cocaine Screen POSITIVE H U Marijuana (THC) Screen POSITIVE H Ethyl Alcohol COVID-19 ([facility]OY) COVID-19 [employer] 05/21/22 05/21/22 08:31 08:31 WBC RBC Hgb Hct MCV MCH MCHC RDW Plt Count MPV Immature Gran % (Auto) Neut % (Auto) Lymph % (Auto) [place] % (Auto) Eos % (Auto) Baso % (Auto) Lymph # (Auto) [place] # (Auto) Eos # (Auto) Baso # (Auto) Abs Immat Gran (auto) Absolute Neuts (auto) Absolute Nucleated RBC Nucleated RBC % (auto) Sodium Potassium Chloride Carbon Dioxide Anion Gap BUN Creatinine Estim Creat Clear Calc Estimated GFR Random Glucose Fasting Glucose Calcium Iron 89 TIBC 403 % Saturation 22 Unsat Iron Binding 314 Total Bilirubin Direct Bilirubin AST ALT Alkaline Phosphatase Total Protein Albumin Triglycerides Cholesterol LDL Cholesterol, Calc HDL Cholesterol Vitamin B12 Folate TSH 3.48 Salicylates Urine Opiates Screen Urine Fentanyl Screen Acetaminophen Ur Barbiturates Screen Ur Phencyclidine Scrn Ur Amphetamines Screen U Benzodiazepines Scrn Urine Cocaine Screen U Marijuana (THC) Screen Ethyl Alcohol COVID-19 ([facility]OY) COVID-19 [employer] DS: Summary Hospital Course Hospital Course: Admission to adult psychiatry to address symptom exacerbation of PTSD, recurrent, severe major depression, opiate, alcohol and cocaine use disorder. Medications were evaluated. Mark refused any medication for depression and requested Prozac be discontinued. He declined to participate in the milieu and in aftercare planning, asking that we secure housing for him which was not a realistic possiblity. Several program applications were offered which would all include housing, however he refused, looking for housing without a treatment component. He declined out patient referrals and was discharged with a plan to call and or return should he change his mind regarding referrals. Time spent discussing smoking cessation with patient: 3 to 10 minutes Status at Discharge Functional status at discharge: independent ambulation Overall status at discharge: patient is back to baseline Time Spent with Patient Time attestation: Total time spent providing and/or coordinating discharge services: 35 Time spent: Greater than 30 minutes Discharge Plan Discharge Patient Disposition: Home, Self-Care Discharge Diagnosis: PTSD Recurrent Major Depression, Severe Opiate Use Disorder Alcohol Use Disorder Cocaine Use Disorder Referrals: Physician,None [Primary Care Provider] - 1 Week Discharge Medications: New multivitamin [Daily-Jesenia] Tablet 1 tab PO DAILY Qty: 30 0RF nicotine (polacrilex) 2 mg Gum 2 mg buccal Q2H PRN (Reason: Nicotine Cravings) Qty: 60 0RF nicotine 21 mg/24 hr Patch 24 Hour 21 mg transdermal DAILY Qty: 30 0RF ferrous sulfate 324 mg (65 mg iron) Tablet,Delayed Release (Dr/Ec) 324 mg PO DAILY Qty: 30 0RF Continued methadone 10 mg/5 mL Solution 85 mg PO DAILY gabapentin 400 mg Capsule 800 mg PO TID 30 Days Qty: 42 4RF triamcinolone acetonide 0.1 % Cream 1 appl topical DAILY 30 Days Qty: 100 0RF Protocol: Apply to: Apply to: areas affected by psoriasis hydroxyzine HCl 25 mg Tablet 25 mg PO BID PRN (Reason: Anxiety) 30 Days Qty: 60 0RF Discontinued fluoxetine 20 mg Capsule 20 mg PO DAILY 30 Days Qty: 30 0RF Discharge Orders: Discharge Order (Routine); Ordered 05/23/22 Ordered By: Jazmine Retana Diet: Advance to usual diet Activity on Discharge: As tolerated Stand Alone Forms: Patient Portal Discharge page Care Plan Goals: Mood Stabilization Sobriety Health Concerns: PTSD Major Depression Opiate Use Disorder Alcohol Use Disorder Stimulant Use Disorder-cocaine Plan of Treatment: You have declined medications for depression. You have declined referrals to programs to continue treatment You have requested to leave today. Call/Return as needed. Treatment options are available and we can help you to work with these options- Scott Aguilar has given you a list of treatment options, including [facility], [facility], [facility], [facility], [facility], [facility], [facility], [facility] and [facility]on Steele ([facility]) If you change your mind and want assistance in application, please call [phone]. [facility] Living Room may also help you with referrals [phone] Assessment: non suicidal, non psychotic Discharge Date/Time: 05/23/22 12:15
== END 2022-05-23 12:15 | disposition home or self-care (01) | DRG 751 ==
LOC: HO.ED 06:40 → HO.PM5 05-19 19:32
PROVIDERS: Psychiatry & Neurology Psychiatry; Admitting Provider Psychiatry & Neurology Psychiatry; Emergency Provider Emergency Medicine Emergency Medical Services; Visit Provider Clinical Nurse Specialist Psychiatric/Mental Health, Adult
DX: F33.2 Major depressive disorder, recurrent severe without psychotic features (principal); R45.851 Suicidal ideations; F10.20 Alcohol dependence, uncomplicated; F11.20 Opioid dependence, uncomplicated; F43.10 Post-traumatic stress disorder, unspecified; F17.210 Nicotine dependence, cigarettes, uncomplicated; F14.20 Cocaine dependence, uncomplicated; Z20.822 Contact with and (suspected) exposure to COVID-19; Z71.6 Tobacco abuse counseling; Z91.013 Allergy to seafood; Z88.8 Allergy status to other drugs, medicaments and biological substances; Z79.899 Other long term (current) drug therapy
CPT/HCPCS: 36415; 80048; 80053; 80061; 80076; 80143; 80179; 80307; 82077; 82607; 82746; 83540; 84443; 85025; 87635; 93005; 99285

== ENCOUNTER 2022-05-27 07:39 | Emergency (ER) | payer MEDICAID, SELFPAY ==
--- NOTE | 2022-05-27 08:05 | ED_ITS ---
HPI - General Adult General Chief complaint: Psychiatric Symptoms Stated complaint: SI,CALM/COOP PER EMS Time Seen by Provider: 05/27/22 08:05 Source: patient and EMS Mode of arrival: EMS Limitations: no limitations History of Present Illness HPI narrative: Patient is a 41 year old male presenting to the emergency department today with suicidal ideation. Patient states that he was just discharged from here and he isn't sure what to do. Patient denies any dizziness, lightheadedness, abdominal pain, nausea, vomiting, fever, chills, blurry vision, double vision, loss of vision, chest pain, difficulty breathing, shortness of breath, back pain, night sweats, pain with urination, increased urinary frequency, increased urinary urgency, blood in his urine or stool, syncope or a near syncopal episode, recent trauma or falls, bowel incontinence, bladder incontinence, bowel retention, bladder retention, or any other complaints at this time. Onset (ago): day(s) Relieving factors: none Exacerbating factors: none Associated symptoms: denies other symptoms Treatments prior to arrival: none Related Data Home Medications Medication Instructions Recorded Confirmed methadone 10 mg/5 mL oral solution 85 mg PO DAILY 04/21/22 05/27/22 Previous Rx's Medication Instructions Recorded ferrous sulfate 324 mg (65 mg 324 mg PO DAILY #30 tabs 05/23/22 iron) tablet,delayed release gabapentin 400 mg capsule 800 mg PO TID 30 days #42 caps 05/23/22 hydroxyzine HCl 25 mg tablet 25 mg PO BID PRN Anxiety 30 days 05/23/22 #60 tabs multivitamin (Daily-Jesenia) 1 tab PO DAILY #30 tabs 05/23/22 nicotine (polacrilex) 2 mg gum 2 mg buccal Q2H PRN Nicotine 05/23/22 Cravings #60 ea nicotine 21 mg/24 hr daily 21 mg transdermal DAILY #30 ea 05/23/22 transdermal patch triamcinolone acetonide 0.1 % 1 appl topical DAILY 30 days #100 05/23/22 topical cream grams Allergies Allergy/AdvReac Type Severity Reaction Status Date / Time fish derived [FISH] Allergy Unknown UNKNOWN - Verified 05/18/22 05:35 NOT ANAPHYLAXIS PER PATIENT trazodone AdvReac Severe priapr Verified 05/18/22 05:35 Review of Systems Constitutional: Constitutional: Reports no additional constitutional complaints, Denies chills, Denies fever(s) and Denies night sweats Eyes: Eyes: Reports no additional eye complaints, Denies blurry vision, Denies change in vision, Denies diplopia, Denies eye discharge, Denies loss of vision and Denies eye pain ENT: Denies dizziness Cardiovascular: Cardiovascular: Reports no additional cardiovascular complaints, Denies chest pain, Denies lightheadedness, Denies Loss of Cons ciousness and Denies dyspnea Respiratory: Respiratory: Reports no additional respiratory complaints and Denies dyspnea Gastrointestinal: Gastrointestinal: Reports no additional gastrointestinal complaints, Denies abdominal pain, Denies melena, Denies hematochezia, Denies change in bowel habits and Denies change in stool character Genitourinary: Genitourinary: Reports no additional male genitourinary complaints, Denies hematuria, Denies oliguria, Denies difficulty urinating, Denies dysuria, Denies urinary frequency, Denies urinary hesitancy, Denies urinary incontinence and Denies urinary urgency Musculoskeletal: Musculoskeletal: Reports no additional musculoskeletal complaints, Denies numbness and Denies tingling Neurologic: Denies dizziness, Denies loss of vision, Denies numbness and Denies tingling Psychiatric: Psychiatric: Reports no additional psychiatric complaints and Reports suicidal ideation Endocrine: Endocrine: Reports no additional endocrine complaints Hematologic/Lymphatic: Hematologic/Lymphatic: Reports no additional hematologic/lymphatic complaints Allergic/Immunologic: Allergic/Immunologic: Reports no additional allergic/immunologic complaints [facility] Past Medical History Attestation statement: The following information was validated with the patient. Source: old records reviewed Medical History Hep C w/o coma, chronic PTSD (post-traumatic stress disorder) PTSD (post-traumatic stress disorder) Recurrent major depression-severe Surgical History History of surgery on arm Social History Social History Household Members: Other Housing: Homeless Do you presently have visiting nurse or other home services: No Alcohol intake: current Alcohol intake frequency: 3 or more drinks per day Alcohol type: hard liquor Patient Tobacco Use Status: Current everyday Tobacco user Tobacco use type: Cigarette Cigarette Packs Per Day: 1 Cigarettes Per Day: 20.0 Years Smoked: 25 e-Cigarette/Vaping Use: Never Used Second Hand Smoke Exposure: Yes Substance Use Type: Heroin Advance Directives: Yes Advance Directives Information Provided: Yes Advance Directives on File: No service: Yes ([employer]) Sexual orientation: Straight/Heterosexual Physical Exam ED Vital Signs: Vital Signs - 24 hr 05/27/22 08:17 Temperature 97.7 F Pulse Rate 81 Respiratory Rate 18 Blood Pressure 139/93 H Pulse Oximetry 95 Oxygen Delivery Method Room Air BMI result Body Mass Index 27.2 Const General: cooperative, no acute distress, alert and awake Nutritional Appearance: well nourished Orientation/consciousness: patient oriented x3 Limitations: no limitations HENMT Head: Yes normal to inspection and Yes atraumatic Ears: hearing grossly normal bilaterally and external ears normal General nose exam: Normal external nose present, no nasal discharge noted and no epistaxis Face and sinus: Yes normal facial exam, No abrasion and No laceration Mouth: Normal oral and palatal mucosa present, no drooling and no muffled voice Eyes General: appearance normal, both eyes and all related structures Periorbital: periorbital findings normal Eyelids: Yes eyelids normal Conjunctivae: conjunctivae normal Pupils: Equal, round and reactive pupils present EOM: EOMs intact bilaterally Neck Neck: Yes normal visual inspection, Yes full ROM and Yes no lymphadenopathy Chest Chest palpation & inspection: normal inspection of the chest Resp Effort & Inspection: normal respiratory effort and able to speak in complete sentences Auscultation: clear to auscultation bilaterally Cardio Rate: regular rate Rhythm: regular rhythm GI Inspection: Yes normal to inspection Neuro General: patient oriented x3 and moves all extremities Cranial nerves: Yes Equal, round and reactive pupils present Cognition (Neuro): normal cognition Motor exam (neuro): 5/5 motor strength present throughout Sensory Exam: Normal double simultaneous stimulation for sensation Coordination: [id number] test normal Extrem General: Yes normal to inspection, Yes full ROM and Yes capillary refill normal Psych Appearance: grossly normal Mental Status: mental status grossly normal Affect: normal affect Attitude: cooperative Thought process: Normal thought process present Thought content: Normal thought content present Insight: Good insight present (Psych) Medical Decision Making MDM Narrative Medical decision making narrative: Patient is a 41 year old male presenting to the emergency department today with suicidal ideation. Patient's physical exam was unremarkable. Patient's blood work was unremarkable. Patient's urine showed no acute process. I explained my physical exam findings as well as all test results to the patient. I answered all questions asked by the patient. [facility] recommended discharge to the living room. I stressed the importance of the patient taking his medication as prescribed. I stressed the importance of the patient following up with his primary care provider. I stressed the importance of the patient returning to the emergency department immediately if his symptoms were to worsen or if he were to develop any dizziness, shortness of breath, difficulty breathing, chest pain, blurry vision, loss of vision, nausea, vomiting, abdominal pain, fever, chills, back pain, or any other complaints. Patient verbalized agreement and understanding with this treatment plan and discharge. Differential Diagnosis Differential Diagnosis: depression Medical Records Medical records reviewed: Yes I reviewed the patient's medical records. Lab Data Lab results reviewed: Yes I reviewed the patient's lab results. Result diagrams: 05/27/22 08:27 05/27/22 08:27 Labs: Lab Results 05/27/22 05/27/22 05/27/22 Range/Units 08:17 08:18 08:20 WBC (4.8-10.8) X10*3/uL RBC (4.60-5.80) X10*6/uL Hgb (14.0-18.0) g/dl Hct (42.0-52.0) % MCV (80.0-98.0) fL MCH (27.0-33.0) pg MCHC (31.0-36.0) g/dl RDW (11.0-16.0) % Plt Count (160-400) X10*3/uL MPV (9.4-12.4) fL Immature Gran % (Auto) (0.0-0.4) % Neut % (Auto) (45-73) % Lymph % (Auto) (20-40) % [place] % (Auto) (2-11) % Eos % (Auto) (0-4) % Baso % (Auto) (0-2) % Lymph # (Auto) (1.2-4.9) X10*3/uL [place] # (Auto) (0.1-1.2) X10*3/uL Eos # (Auto) (0.0-0.4) X10*3/uL Baso # (Auto) (0.0-0.2) X10*3/uL Abs Immat Gran (auto) (0.00-0.03) X10*3/uL Absolute Neuts (auto) (2.0-8.3) x10*3/uL Absolute Nucleated RBC (0.0-0.012) X10*3/uL Nucleated RBC % (auto) (0.0-0.2) /100WBC Sodium (135-145) mmol/L Potassium (3.3-5.1) mmol/L Chloride (96-108) mmol/L Carbon Dioxide (22-29) mmol/L Anion Gap (12-20) BUN (9-16) mg/dL Creatinine (0.5-1.4) mg/dL Estim Creat Clear Calc Estimated GFR Random Glucose (60-115) mg/dL Calcium (8.4-10.2) mg/dL Total Bilirubin (0.0-1.0) mg/dL AST (5-37) U/L ALT (0-40) U/L Alkaline Phosphatase (39-117) U/L Total Protein (6.5-8.0) g/dL Albumin (3.5-5.0) g/dL Urine Color YELLOW Urine Appearance CLEAR Urine pH 7.5 (5.0-8.0) Ur Specific [place] 1.010 (1.005-1.025) Urine Protein NEG (NEG-TRACE) MG/DL Urine Glucose (UA) NEG (NEG) MG/DL Urine Ketones NEG (NEG) MG/DL Urine Blood NEG (NEG) Urine Nitrite NEG (NEG) Ur Leukocyte Esterase NEG (NEG) Urine Opiates Screen POSITIVE H (Not Detect) Urine Fentanyl Screen POSITIVE H (Not Detect) Ur Barbiturates Screen Not Detected (Not Detect) Ur Phencyclidine Scrn Not Detected (Not Detect) Ur Amphetamines Screen Not Detected (Not Detect) U Benzodiazepines Scrn POSITIVE H (Not Detect) Urine Cocaine Screen POSITIVE H (Not Detect) U Marijuana (THC) Screen Not Detected (Not Detect) Ethyl Alcohol mg/dL COVID-19 (ELOY) Negative (Negative) COVID-19 Clin Com See Note 05/27/22 05/27/22 Range/Units 08:27 08:27 WBC 4.8 (4.8-10.8) X10*3/uL RBC 4.43 L (4.60-5.80) X10*6/uL Hgb 9.4 L (14.0-18.0) g/dl Hct 29.4 L (42.0-52.0) % MCV 66.4 L (80.0-98.0) fL MCH 21.2 L (27.0-33.0) pg MCHC 32.0 (31.0-36.0) g/dl RDW 16.2 H (11.0-16.0) % Plt Count 221 (160-400) X10*3/uL MPV 9.5 (9.4-12.4) fL Immature Gran % (Auto) 0.4 (0.0-0.4) % Neut % (Auto) 60.7 (45-73) % Lymph % (Auto) 23.1 (20-40) % [place] % (Auto) 13.7 H (2-11) % Eos % (Auto) 1.5 (0-4) % Baso % (Auto) 0.6 (0-2) % Lymph # (Auto) 1.1 L (1.2-4.9) X10*3/uL [place] # (Auto) 0.7 (0.1-1.2) X10*3/uL Eos # (Auto) 0.1 (0.0-0.4) X10*3/uL Baso # (Auto) 0.0 (0.0-0.2) X10*3/uL Abs Immat Gran (auto) 0.02 (0.00-0.03) X10*3/uL Absolute Neuts (auto) 2.9 (2.0-8.3) x10*3/uL Absolute Nucleated RBC 0.000 (0.0-0.012) X10*3/uL Nucleated RBC % (auto) 0.0 (0.0-0.2) /100WBC Sodium 136 (135-145) mmol/L Potassium 3.8 (3.3-5.1) mmol/L Chloride 102 (96-108) mmol/L Carbon Dioxide 27 (22-29) mmol/L Anion Gap 11 L (12-20) BUN 8 L (9-16) mg/dL Creatinine 0.73 (0.5-1.4) mg/dL Estim Creat Clear Calc 136.1 Estimated GFR > 60 Random Glucose 89 (60-115) mg/dL Calcium 8.2 L D (8.4-10.2) mg/dL Total Bilirubin 0.7 (0.0-1.0) mg/dL AST 94 H (5-37) U/L ALT 72 H (0-40) U/L Alkaline Phosphatase 72 D (39-117) U/L Total Protein 6.8 (6.5-8.0) g/dL Albumin 3.7 (3.5-5.0) g/dL Urine Color Urine Appearance Urine pH (5.0-8.0) Ur Specific [place] (1.005-1.025) Urine Protein (NEG-TRACE) MG/DL Urine Glucose (UA) (NEG) MG/DL Urine Ketones (NEG) MG/DL Urine Blood (NEG) Urine Nitrite (NEG) Ur Leukocyte Esterase (NEG) Urine Opiates Screen (Not Detect) Urine Fentanyl Screen (Not Detect) Ur Barbiturates Screen (Not Detect) Ur Phencyclidine Scrn (Not Detect) Ur Amphetamines Screen (Not Detect) U Benzodiazepines Scrn (Not Detect) Urine Cocaine Screen (Not Detect) U Marijuana (THC) Screen (Not Detect) Ethyl Alcohol 21 mg/dL COVID-19 (ELOY) (Negative) COVID-19 Clin Com Discharge Plan Discharge Clinical Impression: PTSD (post-traumatic stress disorder) Patient Disposition: Home, Self-Care Instructions: Post Traumatic Stress Disorder (ED) Additional Instructions: Follow up with your primary care provider. Return to the emergency department immediately if your symptoms worsen or if you develop any dizziness, shortness of breath, difficulty breathing, chest pain, blurry vision, loss of vision, nausea, vomiting, abdominal pain, fever, chills, back pain, or any other c omplaints. Prescriptions: No Action methadone 10 mg/5 mL Solution 85 mg PO DAILY multivitamin [Daily-Jseenia] Tablet 1 tab PO DAILY Qty: 30 0RF nicotine (polacrilex) 2 mg Gum 2 mg buccal Q2H PRN (Reason: Nicotine Cravings) Qty: 60 0RF nicotine 21 mg/24 hr Patch 24 Hour 21 mg transdermal DAILY Qty: 30 0RF ferrous sulfate 324 mg (65 mg iron) Tablet,Delayed Release (Dr/Ec) 324 mg PO DAILY Qty: 30 0RF gabapentin 400 mg Capsule 800 mg PO TID 30 Days Qty: 42 4RF triamcinolone acetonide 0.1 % Cream 1 appl topical DAILY 30 Days Qty: 100 0RF Protocol: Apply to: Apply to: areas affected by psoriasis hydroxyzine HCl 25 mg Tablet 25 mg PO BID PRN (Reason: Anxiety) 30 Days Qty: 60 0RF Referrals: [facility] Family Medicine [Provider Group] (Call to establish and follow up with a primary care provider. If you already have a primary care provider, call and follow up with them. ) [facility] Primary Care, Shauna [Provider Group] (Call to establish and follow up with a primary care provider. If you already have a primary care provider, call and follow up with them. ) [facility] Primary Care,Jay [Provider Group] (Call to establish and follow up with a primary care provider. If you already have a primary care provider, call and follow up with them. ) Print Language: Polish
[2022-05-27 08:17] VITALS: BP 139/93; BP 150/70; PULSE 80; PULSE 81; RESP 18; TEMP 36.5; O2SAT 95; BMI 27.2
[2022-05-27 08:34] LABS: MANUAL DIFF FLAG NO
[2022-05-27 08:36] LABS: Basophils Percent Auto 0.6 % (0-2); Eosinophils Absolute Auto 0.1 X10*3/uL (0.0-0.4); Eosinophils Percent Auto 1.5 % (0-4); Hematocrit 29.4 % (42.0-52.0); Hemoglobin 9.4 g/dl (14.0-18.0); Imm Gran Abs Auto 0.02 X10*3/uL (0.00-0.03); Imm Gran Pct Auto 0.4 % (0.0-0.4); Lymphocytes Absolute Auto 1.1 X10*3/uL (1.2-4.9); Lymphocytes Percent Auto 23.1 % (20-40); Mean Corpuscular Hemoglobin 21.2 pg (27.0-33.0); Mean Corpuscular Volume 66.4 fL (80.0-98.0); Mean Platelet Volume 9.5 fL (9.4-12.4); Monocytes Absolute Auto 0.7 X10*3/uL (0.1-1.2); Monocytes Percent Auto 13.7 % (2-11); Neutrophils Absolute Auto 2.9 x10*3/uL (2.0-8.3); Neutrophils Percent Auto 60.7 % (45-73); Platelet Count 221 X10*3/uL (160-400); Red Blood Count 4.43 X10*6/uL (4.60-5.80); Red Cell Distribution Width 16.2 % (11.0-16.0); White Blood Count 4.8 X10*3/uL (4.8-10.8)
[2022-05-27 08:36] LABS: Appearance Urine CLEAR; Color Urine YELLOW; Glucose Urine UA NEG (NEG); Leukocyte Esterase Urine NEG (NEG); Nitrite Urine NEG (NEG); PH 7.5 (5.0-8.0); Urine Blood NEG (NEG); Urine Ketones NEG (NEG); Urine Protein NEG (NEG-TRACE)
[2022-05-27 08:52] LABS: Alanine Aminotransferase 72 U/L (0-40); Albumin Level 3.7 g/dL (3.5-5.0); Alkaline Phosphatase 72 U/L (39-117); Anion Gap 11 (12-20); Aspartate Amino Transferase 94 U/L (5-37); Bilirubin Total 0.7 mg/dL (0.0-1.0); Blood Urea Nitrogen 8 mg/dL (9-16); Calcium 8.2 mg/dL (8.4-10.2); Carbon Dioxide 27 mmol/L (22-29); Chloride 102 mmol/L (96-108); Creatinine Clr Calc Pharmacy 136.1; Estimated Glomerular Filt Rate > 60; Ethanol 21 mg/dL; Glucose Random 89 mg/dL (60-115); Potassium 3.8 mmol/L (3.3-5.1); Sodium 136 mmol/L (135-145); Total Protein 6.8 g/dL (6.5-8.0)
[2022-05-27 08:52] LABS: Amphetamine Screen Urine Not Detected (Not Detect); Barbiturates, Urine Not Detected (Not Detect); Benzodiazepines Screen Urine POSITIVE (Not Detect); Cannabinoid Screen Urine Not Detected (Not Detect); Cocaine Screen Urine POSITIVE (Not Detect); Fentanyl, urine POSITIVE (Not Detect); Opiate Screen Urine POSITIVE (Not Detect); Phencyclidine Screen Urine Not Detected (Not Detect)
[2022-05-27 08:57] LABS: COVID-19 Test Negative (Negative)
[2022-05-27] MEDS: Nicotine Polacrilex 2 MG GUM BUCCAL (10:41)
[2022-05-27] MEDS: methADONE HCl 20 MG/2 ML ORAL.CONC 85 MG PO (10:41)
== END 2022-05-27 16:06 | disposition home or self-care (01) ==
PROVIDERS: Physician Assistant Medical; Emergency Provider Emergency Medicine
DX: F43.10 Post-traumatic stress disorder, unspecified (principal); R45.851 Suicidal ideations; R42 Dizziness and giddiness; R11.2 Nausea with vomiting, unspecified; R06.02 Shortness of breath; F17.210 Nicotine dependence, cigarettes, uncomplicated; Z20.822 Contact with and (suspected) exposure to COVID-19; Z79.899 Other long term (current) drug therapy; Z71.6 Tobacco abuse counseling
CPT/HCPCS: 80053; 80307; 81003; 82077; 85025; 87635; 99282; 99283

== ENCOUNTER 2022-06-20 06:15 | Emergency (ER) | payer MEDICAID, SELFPAY ==
[2022-06-20 06:21] VITALS: BMI 27.9
[2022-06-20 06:25] VITALS: BP 145/94; PULSE 93; RESP 17; TEMP 36.9; O2SAT 99
--- NOTE | 2022-06-20 06:37 | ED.PSYCH ---
HPI - Psych General Chief Complaint: Psychiatric Symptoms Stated Complaint: SI Time Seen by Provider: 06/20/22 06:37 Source: patient Mode of arrival: EMS Limitations: no limitations History of Present Illness MD complaint: suicidal ideation and feels depressed Onset (ago): day(s) (2) Duration: getting worse History of same: Yes Relieving factors: none Exacerbating factors: alcohol Context: recent alcohol abuse and not taking psychiatric medications Associated psychiatric symptoms: depression and suicidal ideation Associated symptoms: denies other symptoms Treatments prior to arrival: none If self harm: admits thoughts of self harm and has plan Related Data Home Medications Medication Instructions Recorded Confirmed methadone 10 mg/5 mL oral solution 85 mg PO DAILY 04/21/22 05/27/22 ferrous sulfate 324 mg (65 mg 1 tab PO DAILY 06/20/22 06/20/22 iron) tablet,delayed release gabapentin 400 mg capsule 2 cap PO TID 06/20/22 06/20/22 hydroxyzine HCl 25 mg tablet 1 tab PO BID PRN anxiety 06/20/22 06/20/22 multivitamin with folic acid 400 1 tab PO DAILY 06/20/22 06/20/22 mcg tablet (Daily-Jesenia (with folic acid)) nicotine (polacrilex) 2 mg gum 1 gum PO Q2H PRN nicotine cravings 06/20/22 06/20/22 nicotine 21 mg/24 hr daily 1 patch transdermal DAILY 06/20/22 06/20/22 transdermal patch triamcinolone acetonide 0.1 % 1 appl topical DAILY 06/20/22 06/20/22 topical cream Allergies Allergy/AdvReac Type Severity Reaction Status Date / Time fish derived [FISH] Allergy Unknown UNKNOWN - Verified 05/18/22 05:35 NOT ANAPHYLAXIS PER PATIENT trazodone AdvReac Severe priapr Verified 05/18/22 05:35 Review of Systems Review of Systems: Constitutional : No Fever, No Chills ENT/Mouth : No Ear Pain, No Nasal Congestion, No sore throat Eyes: No Eye Pain, No Swelling, No Redness Cardiovascular : No Chest Pain, No SOB Respiratory : No Cough, No Sputum, No Dyspnea Gastrointestinal : No Nausea, No Vomiting, No Diarrhea, No Hematochezia, No Melena Genitourinary : No Dysuria, No Urinary Frequency, No Hematuria Musculoskeletal : No Myalgias Skin : No Skin Lesions, No rash Neuro : No Weakness, No Numbness, No Paresthesias, No Dizziness, No Headache Psych : positive Anxiety, positive Depression, positive SI no HI Heme/Lymph: No Lymphadenopathy Endocrine : No Polyuria, No Polydipsia All other systems reviewed and are negative [facility] Past Medical History Attestation statement: The following information was validated with the patient. Medical History Hep C w/o coma, chronic PTSD (post-traumatic stress disorder) PTSD (post-traumatic stress disorder) Recurrent major depression-severe Surgical History History of surgery on arm Social History Social History Household Members: Other Housing: Homeless Do you presently have visiting nurse or other home services: No Alcohol intake: current Alcohol intake frequency: 3 or more drinks per day Alcohol type: hard liquor Patient Tobacco Use Status: Current everyday Tobacco user Tobacco use type: Cigarette Cigarette Packs Per Day: 1 Cigarettes Per Day: 20.0 Years Smoked: 25 e-Cigarette/Vaping Use: Never Used Second Hand Smoke Exposure: Yes Substance Use Type: Heroin Advance Directives: No Advance Directives Information Provided: Yes service: Yes ([employer] Sexual orientation: Straight/Heterosexual Physical Exam Vital Signs: Vital Signs: Last Vital Signs Temp 98.4 F 06/20/22 06:25 Pulse 93 06/20/22 06:25 Resp 17 06/20/22 06:25 BP 145/94 H 06/20/22 06:25 Pulse Ox 99 06/20/22 06:25 O2 Del Method 06/20/22 06:25 BMI result Body Mass Index 27.9 Appearance: Alert. Oriented X3. No acute distress. Anxious, agitated slightly with RN Eyes: Pupils equal, round and reactive to light. ENT: Pharynx normal. Neck: Normal inspection. Neck supple. CVS: Normal heart rate and rhythm. Pulses normal. Respiratory: No respiratory distress. Breath sounds normal. Abdomen: Soft and nontender. Skin: Skin warm and dry. Normal skin color. Normal skin turgor. Extremities: No lower extremity edema. Neuro: Oriented X 3. No motor deficit. No sensory deficit.CN 2-12 intact Course Course Course Narrative: Physician observation started at 744am. Patient placed in physician observation because the patient needed more time for BHN to assess the need for psych admission. At the time observation was started the patient's vitals were stable, patient is alert and oriented but slightly agitated, Neuro: nonfocal, CV RRR, Lungs clear Physician observation ended at 1212pm. Patient seen and cleared by CARE team and black leather buffer. Plan to DC to the living room. Patient agrees to DC. NAD, lungs clear, CV RRR, Abd nontender, Neuro intact. Disposition is for respite. MDM - Psych MDM Narrative Medical decision making narrative: 42 yo male with hx of PTSD< substance abuse, ETOH abuse here with c/o missing methadone dose x 2 days, feels shaky from not drinking ETOH - at this time labs, PO ativan and call to methadone clinic ordered. Will also refer to BHN given c/o SI. Lab Data Result diagrams: 06/20/22 08:11 06/20/22 08:11 Labs: Lab Results 06/20/22 06/20/22 06/20/22 Range/Units 06:29 06:35 08:11 WBC 6.8 (4.8-10.8) X10*3/uL RBC 4.82 (4.60-5.80) X10*6/uL Hgb 10.4 L (14.0-18.0) g/dl Hct 32.3 L (42.0-52.0) % MCV 67.0 L (80.0-98.0) fL MCH 21.6 L (27.0-33.0) pg MCHC 32.2 (31.0-36.0) g/dl RDW 17.4 H (11.0-16.0) % Plt Count 259 (160-400) X10*3/uL MPV 9.6 (9.4-12.4) fL Immature Gran % (Auto) 0.3 (0.0-0.4) % Neut % (Auto) 69.3 (45-73) % Lymph % (Auto) 16.4 L (20-40) % [place] % (Auto) 12.3 H (2-11) % Eos % (Auto) 1.0 (0-4) % Baso % (Auto) 0.7 (0-2) % Lymph # (Auto) 1.1 L (1.2-4.9) X10*3/uL [place] # (Auto) 0.8 (0.1-1.2) X10*3/uL Eos # (Auto) 0.1 (0.0-0.4) X10*3/uL Baso # (Auto) 0.1 (0.0-0.2) X10*3/uL Abs Immat Gran (auto) 0.02 (0.00-0.03) X10*3/uL Absolute Neuts (auto) 4.7 (2.0-8.3) x10*3/uL Absolute Nucleated RBC 0.000 (0.0-0.012) X10*3/uL Nucleated RBC % (auto) 0.0 (0.0-0.2) /100WBC Sodium (135-145) mmol/L Potassium (3.3-5.1) mmol/L Chloride (96-108) mmol/L Carbon Dioxide (22-29) mmol/L Anion Gap (12-20) BUN (9-16) mg/dL Creatinine (0.5-1.4) mg/dL Estim Creat Clear Calc Estimated GFR Random Glucose (60-115) mg/dL Calcium (8.4-10.2) mg/dL Total Bilirubin (0.0-1.0) mg/dL Direct Bilirubin (0.0-0.5) mg/dL AST (5-37) U/L ALT (0-40) U/L Alkaline Phosphatase (39-117) U/L Total Protein (6.5-8.0) g/dL Albumin (3.5-5.0) g/dL Urine Opiates Screen POSITIVE H (Not Detect) Urine Fentanyl Screen POSITIVE H (Not Detect) Ur Barbiturates Screen Not Detected (Not Detect) Ur Phencyclidine Scrn Not Detected (Not Detect) Ur Amphetamines Screen Not Detected (Not Detect) U Benzodiazepines Scrn POSITIVE H (Not Detect) Urine Cocaine Screen POSITIVE H (Not Detect) U Marijuana (THC) Screen Not Detected (Not Detect) Ethyl Alcohol mg/dL COVID-19 (ELOY) Negative (Negative) COVID-19 Clin Com See Note 06/20/22 Range/Units 08:11 WBC (4.8-10.8) X10*3/uL RBC (4.60-5.80) X10*6/uL Hgb (14.0-18.0) g/dl Hct (42.0-52.0) % MCV (80.0-98.0) fL MCH (27.0-33.0) pg MCHC (31.0-36.0) g/dl RDW (11.0-16.0) % Plt Count (160-400) X10*3/uL MPV (9.4-12.4) fL Immature Gran % (Auto) (0.0-0.4) % Neut % (Auto) (45-73) % Lymph % (Auto) (20-40) % [place] % (Auto) (2-11) % Eos % (Auto) (0-4) % Baso % (Auto) (0-2) % Lymph # (Auto) (1.2-4.9) X10*3/uL [place] # (Auto) (0.1-1.2) X10*3/uL Eos # (Auto) (0.0-0.4) X10*3/uL Baso # (Auto) (0.0-0.2) X10*3/uL Abs Immat Gran (auto) (0.00-0.03) X10*3/uL Absolute Neuts (auto) (2.0-8.3) x10*3/uL Absolute Nucleated RBC (0.0-0.012) X10*3/uL Nucleated RBC % (auto) (0.0-0.2) /100WBC Sodium 133 L (135-145) mmol/L Potassium 4.1 (3.3-5.1) mmol/L Chloride 94 L (96-108) mmol/L Carbon Dioxide 27 (22-29) mmol/L Anion Gap 16 (12-20) BUN 9 (9-16) mg/dL Creatinine 0.77 (0.5-1.4) mg/dL Estim Creat Clear Calc 138.5 Estimated GFR > 60 Random Glucose 110 (60-115) mg/dL Calcium 9.2 D (8.4-10.2) mg/dL Total Bilirubin 1.7 H (0.0-1.0) mg/dL Direct Bilirubin 0.9 H (0.0-0.5) mg/dL AST 89 H (5-37) U/L ALT 60 H (0-40) U/L Alkaline Phosphatase 98 D (39-117) U/L Total Protein 8.3 H D (6.5-8.0) g/dL Albumin 4.3 (3.5-5.0) g/dL Urine Opiates Screen (Not Detect) Urine Fentanyl Screen (Not Detect) Ur Barbiturates Screen (Not Detect) Ur Phencyclidine Scrn (Not Detect) Ur Amphetamines Screen (Not Detect) U Benzodiazepines Scrn (Not Detect) Urine Cocaine Screen (Not Detect) U Marijuana (THC) Screen (Not Detect) Ethyl Alcohol < 10 mg/dL COVID-19 (ELOY) (Negative) COVID-19 Clin Com Discharge Plan Discharge Clinical Impression: Suicidal ideation, Opioid use disorder Patient Disposition: Home, Self-Care Instructions: Opioid Use Disorder (ED), Suicide Prevention (ED) Additional Instructions: return to ED for any worsening symptoms or concerns please follow up with your mental health providers Prescriptions: No Action methadone 10 mg/5 mL Solution 85 mg PO DAILY nicotine (polacrilex) 2 mg gum 1 gum PO Q2H PRN (Reason: nicotine cravings) gabapentin 400 mg capsule 2 cap PO TID triamcinolone acetonide 0.1 % cream 1 appl topical DAILY nicotine 21 mg/24 hr patch 24 hour 1 patch transdermal DAILY hydroxyzine HCl 25 mg tablet 1 tab PO BID PRN (Reason: anxiety) ferrous sulfate 324 mg (65 mg iron) tablet,delayed release (DR/EC) 1 tab PO DAILY multivitamin with folic acid [Daily-Jesenia (with folic acid)] 400 mcg tablet 1 tab PO DAILY
[2022-06-20 06:48] LABS: COVID-19 Test Negative (Negative)
--- NOTE | 2022-06-20 06:49 | PC.NURSE ---
[facility] referral completed/confirmed/pending ETA, med rec completed/pending provider's approval, pending methadon verification from [facility] donnell, no concerning behavior, will continue to monitor.
[2022-06-20 06:55] LABS: Amphetamine Screen Urine Not Detected (Not Detect); Barbiturates, Urine Not Detected (Not Detect); Benzodiazepines Screen Urine POSITIVE (Not Detect); Cannabinoid Screen Urine Not Detected (Not Detect); Cocaine Screen Urine POSITIVE (Not Detect); Fentanyl, urine POSITIVE (Not Detect); Opiate Screen Urine POSITIVE (Not Detect); Phencyclidine Screen Urine Not Detected (Not Detect)
--- NOTE | 2022-06-20 08:07 | PC.NURSE ---
This nurse attempted to verify Methadone from [facility] [phone], message left,will reattempt
[2022-06-20 08:16] LABS: MANUAL DIFF FLAG NO
[2022-06-20] MEDS: LORazepam 1 MG TABLET 2 MG PO (08:17)
[2022-06-20 08:18] LABS: Basophils Absolute Auto 0.1 X10*3/uL (0.0-0.2); Basophils Percent Auto 0.7 % (0-2); Eosinophils Absolute Auto 0.1 X10*3/uL (0.0-0.4); Hematocrit 32.3 % (42.0-52.0); Hemoglobin 10.4 g/dl (14.0-18.0); Imm Gran Abs Auto 0.02 X10*3/uL (0.00-0.03); Imm Gran Pct Auto 0.3 % (0.0-0.4); Lymphocytes Absolute Auto 1.1 X10*3/uL (1.2-4.9); Lymphocytes Percent Auto 16.4 % (20-40); Mean Corpuscular HGB Conc 32.2 g/dl (31.0-36.0); Mean Corpuscular Hemoglobin 21.6 pg (27.0-33.0); Mean Platelet Volume 9.6 fL (9.4-12.4); Monocytes Absolute Auto 0.8 X10*3/uL (0.1-1.2); Monocytes Percent Auto 12.3 % (2-11); Neutrophils Absolute Auto 4.7 x10*3/uL (2.0-8.3); Neutrophils Percent Auto 69.3 % (45-73); Platelet Count 259 X10*3/uL (160-400); Red Blood Count 4.82 X10*6/uL (4.60-5.80); Red Cell Distribution Width 17.4 % (11.0-16.0); White Blood Count 6.8 X10*3/uL (4.8-10.8)
[2022-06-20 08:40] LABS: Alanine Aminotransferase 60 U/L (0-40); Albumin Level 4.3 g/dL (3.5-5.0); Alkaline Phosphatase 98 U/L (39-117); Anion Gap 16 (12-20); Aspartate Amino Transferase 89 U/L (5-37); Bilirubin Direct 0.9 mg/dL (0.0-0.5); Bilirubin Total 1.7 mg/dL (0.0-1.0); Blood Urea Nitrogen 9 mg/dL (9-16); Calcium 9.2 mg/dL (8.4-10.2); Carbon Dioxide 27 mmol/L (22-29); Chloride 94 mmol/L (96-108); Creatinine Clr Calc Pharmacy 138.5; Estimated Glomerular Filt Rate > 60; Ethanol < 10 mg/dL; Glucose Random 110 mg/dL (60-115); Potassium 4.1 mmol/L (3.3-5.1); Sodium 133 mmol/L (135-145); Total Protein 8.3 g/dL (6.5-8.0)
--- NOTE | 2022-06-20 08:47 | PC.NURSE ---
last methadone dose 06/18/22 85 mg, verified by ARLEEN Olmedo [phone]. Dr. Adamson aware, verification faxed to pharmacy.
--- NOTE | 2022-06-20 09:15 | HE.PHANOTE ---
RE METHADONE GOT FORM FROM ED
[2022-06-20] MEDS: methADONE HCl 20 MG/2 ML ORAL.CONC 85 MG PO (09:28)
--- NOTE | 2022-06-20 09:32 | PC.NURSE ---
Addendum entered by Lenora Yu RN 06/20/22 09:38: DENIES SI/HI. NO COMPLAINTS Original Note: METHADONE GIVEN DOCUMENTED
--- NOTE | 2022-06-20 12:40 | MHC.CARE ---
Pt is a 42 y/o Japanese speaking, male who is previously known to the CARE Team through prior ED visits and inpatient stays.? Today, pt presented to the ED, after calling an ambulance, with a complaint of suicidal thoughts in the context of his substance use and homelessness.? Pt also reports missing 2 methadone doses.? Pt has been medically cleared and is being assessed by the CARE Team to determine appropriate treatment recommendations.? Pt has a hx of PTSD, substance use, and inpatient treatment. Pt is alert and oriented x4 and is assessed in his room in the behavioral health pod of the ED.? He is engaged in the assessment and appears to be help seeking though he cannot say what help he feels he needs.? He does say he needs to ?Feel better.?? He reports poor sleep (sleeping outdoors), and good appetite.? His eye contact is avoidant, his speech is unremarkable.? He reports his mood as ?depressed? and attributes this to his homelessness and substance use.? He reports AVH, stating that he has been talking to people that aren?t there and ?hearing things.?? Pt did not appear to be experiencing this as he did not appear distracted.? Observation of pt after the assessment did not yield any indication that he was experiencing AVH.? Pt reports vague SI with a plan to ?jump off a bridge? or ?Walk into traffic.?? He attributes this to his homelessness and substance use.? Pt reports a remote attempt to complete suicide ?Many years ago? which resulted in a hospitalization for 30 days at [place].? Insight, judgement, concentration, impulse control and memory appear good.? Pt?s thoughts of suicide appear to be in the context of his substance use, isolation from his support system, and homelessness.? Plan is for pt to be discharged with referrals for housing with [facility], spoke with Kayode Wu ([phone]).? Intake form e mailed to [facility], Kayode Wu.? Pt will be referred to PHP at [facility] and [facility] as well. CARE Team contacted [facility] and secured placement for the day. CARE Team discussed the plan with pt who expressed that he was not interested in the referrals and refused to be transported to [facility].? Pt walked away from CARE Team while attempting to discuss the plan and the potential benefits of counseling, medication, PHP groups, and the resources offered by [facility] while at the [facility]. This plan was discussed with and agreed upon by [facility] Record Clerk of Behavioral Health YELITZA Schwab, ED Provider Dr. Adamson, and Psychiatric provider Malik.
== END 2022-06-20 12:33 | disposition home or self-care (01) ==
PROVIDERS: Emergency Provider Emergency Medicine
DX: F33.1 Major depressive disorder, recurrent, moderate (principal); R45.851 Suicidal ideations; F11.10 Opioid abuse, uncomplicated; F17.210 Nicotine dependence, cigarettes, uncomplicated; Z71.6 Tobacco abuse counseling; Z79.899 Other long term (current) drug therapy; Z20.822 Contact with and (suspected) exposure to COVID-19
CPT/HCPCS: 36415; 80048; 80076; 80307; 82077; 85025; 87635; 99284

== ENCOUNTER 2022-09-12 21:57 | Emergency (ER) | payer MEDICAID, SELFPAY ==
[2022-09-12 22:27] VITALS: BP 110/68; PULSE 83; O2SAT 93
[2022-09-12] MEDS: Naloxone HCl Nasal 4 MG SPRAY NOSTRILALT (22:29)
--- NOTE | 2022-09-12 22:29 | PC.NURSE ---
Pt. moved from ED 22H bed to ED bed 5. Given IN Narcan. Pt. non-compliant with wearing O2. Sats ~95% on RA. Pt. is gradually waking up. Not participating with RN's triage questions.
[2022-09-12 22:30] VITALS: BP 110/83; PULSE 77; RESP 25; TEMP 36.8; O2SAT 84; BMI 22.1
--- NOTE | 2022-09-12 22:41 | PC.NURSE ---
Pt. given second dose of IN Narcan d/t desating to 80s
--- NOTE | 2022-09-12 22:41 | PC.NURSE ---
Pt. on capnography at this time
[2022-09-12 22:42] VITALS: BP 110/83; PULSE 77; RESP 25; O2SAT 96
--- NOTE | 2022-09-12 23:53 | ED.OVERDOSE ---
HPI - Overdose General Chief Complaint: Overdose Stated Complaint: Drug Use Time Seen by Provider: 09/12/22 22:08 Source: patient Mode of arrival: ambulatory Limitations: no limitations History of Present Illness HPI Narrative: Patient history of opiate use disorder PTSD depression was found on the side of the street overdose on heroin details not available patient is obtunded falling sleep saturating 88% at room air with shallow breathing Related Data Home Medications Medication Instructions Recorded Confirmed methadone 10 mg/5 mL oral solution 85 mg PO DAILY 04/21/22 05/27/22 ferrous sulfate 324 mg (65 mg 1 tab PO DAILY 06/20/22 06/20/22 iron) tablet,delayed release gabapentin 400 mg capsule 2 cap PO TID 06/20/22 06/20/22 hydroxyzine HCl 25 mg tablet 1 tab PO BID PRN anxiety 06/20/22 06/20/22 multivitamin with folic acid 400 1 tab PO DAILY 06/20/22 06/20/22 mcg tablet (Daily-Jesenia (with folic acid)) nicotine (polacrilex) 2 mg gum 1 gum PO Q2H PRN nicotine cravings 06/20/22 06/20/22 nicotine 21 mg/24 hr daily 1 patch transdermal DAILY 06/20/22 06/20/22 transdermal patch triamcinolone acetonide 0.1 % 1 appl topical DAILY 06/20/22 06/20/22 topical cream Allergies Allergy/AdvReac Type Severity Reaction Status Date / Time fish derived [FISH] Allergy Unknown UNKNOWN - Verified 05/18/22 05:35 NOT ANAPHYLAXIS PER PATIENT trazodone AdvReac Severe priapr Verified 05/18/22 05:35 Review of Systems Review of Systems: Yes Unobtainable due to mental status PMFSH Past Medical History Medical History Hep C w/o coma, chronic PTSD (post-traumatic stress disorder) PTSD (post-traumatic stress disorder) Recurrent major depression-severe Surgical History History of surgery on arm Social History Social History Household Members: Other Housing: Homeless Do you presently have visiting nurse or other home services: No Alcohol intake: current Alcohol intake frequency: 3 or more drinks per day Alcohol type: hard liquor Patient Tobacco Use Status: Current everyday Tobacco user Tobacco use type: Cigarette Cigarette Packs Per Day: 1 Cigarettes Per Day: 20.0 Years Smoked: 25 e-Cigarette/Vaping Use: Never Used Second Hand Smoke Exposure: Yes Substance Use Type: Heroin Advance Directives: No Advance Directives Information Provided: No service: Yes ([employer]) Sexual orientation: Straight/Heterosexual Physical Exam Vital Signs: Vital Signs: Last Vital Signs Temp 98.3 F 09/13/22 05:57 Pulse 46 L 09/13/22 06:04 Resp 14 09/13/22 06:04 BP 102/55 L 09/13/22 06:04 Pulse Ox 98 09/13/22 06:04 O2 Del Method 09/13/22 06:04 O2 Flow Rate 1 09/13/22 06:04 BMI result Body Mass Index 22.1 Appearance: Alert. Oriented X3. No acute distress. Eyes: PERRL ENT: Pharynx normal. Oral Mucosa moist Neck: Normal inspection. Neck supple. CVS: Normal heart rate and rhythm. Pulses normal. Respiratory: No respiratory distress. Equal air entry bilateral, no wheezing/rales/rhonchi Abdomen: Soft and nontender. Bowel sounds are present, no mass palpable, Skin: Skin warm and dry. Normal skin color. Normal skin turgor. Extremities: No lower extremity edema. No calf tenderness IVDA Track + Neuro: Obtunded responding to noxious stimuli moving all 4 extremities Course Reevaluation(s) Reevaluation #1: Narcan 4 mg intranasally was given patient responded became more awake Time: 22:08 Reevaluation #2: Second dose of Narcan 4 mg intranasally was given as patient was desaturating to 82% 5 L nasal cannula with ET CO2 was applied saturating 99% now Time: 22:40 MDM - Overdose MDM Narrative Medical decision making narrative: Patient with polysubstance abuse requiring 2 doses of Narcan woke up in the morning urine drug screen positive for fentanyl opiates cocaine and THC patient refused any help does want to see 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 Labs: Lab Results 09/13/22 Range/Units 05:24 Urine Opiates Screen POSITIVE H (Not Detect) Urine Fentanyl Screen POSITIVE H (Not Detect) Ur Barbiturates Screen Not Detected (Not Detect) Ur Phencyclidine Scrn Not Detected (Not Detect) Ur Amphetamines Screen Not Detected (Not Detect) U Benzodiazepines Scrn POSITIVE H (Not Detect) Urine Cocaine Screen POSITIVE H (Not Detect) U Marijuana (THC) Screen POSITIVE H (Not Detect) Discharge Plan Discharge Clinical Impression: Polysubstance abuse Patient Disposition: Home, Self-Care Instructions: Polysubstance Abuse (ED) Additional Instructions: Stop using drugs heroin/fentanyl/cocaine Follow up detox Prescriptions: No Action methadone 10 mg/5 mL Solution 85 mg PO DAILY nicotine (polacrilex) 2 mg gum 1 gum PO Q2H PRN (Reason: nicotine cravings) gabapentin 400 mg capsule 2 cap PO TID triamcinolone acetonide 0.1 % cream 1 appl topical DAILY nicotine 21 mg/24 hr patch 24 hour 1 patch transdermal DAILY hydroxyzine HCl 25 mg tablet 1 tab PO BID PRN (Reason: anxiety) ferrous sulfate 324 mg (65 mg iron) tablet,delayed release (DR/EC) 1 tab PO DAILY multivitamin with folic acid [Daily-Jesenia (with folic acid)] 400 mcg tablet 1 tab PO DAILY Interventions: ED Discharge Assessment Last Done: 09/13/22 06:38 Discharge Date/Time: 09/13/22 06:40
[2022-09-13 00:46] VITALS: BP 139/78; PULSE 73; RESP 19; O2SAT 100
--- NOTE | 2022-09-13 01:49 | PC.NURSE ---
This RN spoke with Dr Mendoza to confirm if third dose of narcan IN should be given. Per Dr. Mendoza third dose was put in as a duplicate order.
[2022-09-13 02:00] VITALS: BP 114/52; PULSE 65; RESP 11; O2SAT 95
[2022-09-13 05:45] LABS: Amphetamine Screen Urine Not Detected (Not Detect); Barbiturates, Urine Not Detected (Not Detect); Benzodiazepines Screen Urine POSITIVE (Not Detect); Cannabinoid Screen Urine POSITIVE (Not Detect); Cocaine Screen Urine POSITIVE (Not Detect); Fentanyl, urine POSITIVE (Not Detect); Opiate Screen Urine POSITIVE (Not Detect); Phencyclidine Screen Urine Not Detected (Not Detect)
[2022-09-13 05:57] VITALS: BP 106/57; PULSE 48; RESP 10; TEMP 36.8; O2SAT 99
[2022-09-13 06:04] VITALS: BP 102/55; PULSE 46; RESP 14; O2SAT 98
--- NOTE | 2022-09-13 06:37 | PC.NURSE ---
pt walked with a steady gait. discharge detox and substance abuse information given at discharge, pt given food and drink before discharge.
== END 2022-09-13 06:40 | disposition home or self-care (01) ==
PROVIDERS: Emergency Provider Internal Medicine
DX: T40.1X1A Poisoning by heroin, accidental (unintentional), initial encounter (principal); Y92.9 Unspecified place or not applicable; F43.10 Post-traumatic stress disorder, unspecified; F17.210 Nicotine dependence, cigarettes, uncomplicated; Z79.899 Other long term (current) drug therapy; Z71.6 Tobacco abuse counseling
CPT/HCPCS: 80307; 99284

== ENCOUNTER 2023-03-01 08:35 | Emergency (ER) | payer OTHER, MEDICAID, SELFPAY ==
--- NOTE | 2023-03-01 08:48 | ED.PSYCH ---
HPI - Psych General Chief Complaint: Psychiatric Symptoms Stated Complaint: SI per EMS Time Seen by Provider: 03/01/23 08:40 Source: patient and EMS Mode of arrival: EMS Limitations: no limitations History of Present Illness HPI Narrative: 42-year-old male homeless was picked up from a methadone clinic by EMS to come to the hospital for further evaluation of depression and SI. There is no plan for SI today, patient admitted to drinking alcohol today he gets withdrawal symptoms if he does not drink last drink was last night. Related Data Home Medications Medication Instructions Recorded Confirmed methadone 10 mg/5 mL oral solution 85 mg PO DAILY 04/21/22 05/27/22 ferrous sulfate 324 mg (65 mg 1 tab PO DAILY 06/20/22 06/20/22 iron) tablet,delayed release gabapentin 400 mg capsule 2 cap PO TID 06/20/22 06/20/22 hydroxyzine HCl 25 mg tablet 1 tab PO BID PRN anxiety 06/20/22 06/20/22 multivitamin with folic acid 400 1 tab PO DAILY 06/20/22 06/20/22 mcg tablet (Daily-Jesenia (with folic acid)) nicotine (polacrilex) 2 mg gum 1 gum PO Q2H PRN nicotine cravings 06/20/22 06/20/22 nicotine 21 mg/24 hr daily 1 patch transdermal DAILY 06/20/22 06/20/22 transdermal patch triamcinolone acetonide 0.1 % 1 appl topical DAILY 06/20/22 06/20/22 topical cream Allergies Allergy/AdvReac Type Severity Reaction Status Date / Time fish derived [FISH] Allergy Unknown UNKNOWN - Verified 03/01/23 11:41 NOT ANAPHYLAXIS PER PATIENT trazodone AdvReac Severe priapr Verified 05/18/22 05:35 Review of Systems Review of Systems: All other systems are reviewed and are negative Constitutional: Reports as per HPI and Reports no additional constitutional complaints Eyes: Reports as per HPI and Reports no additional eye complaints Reports system reviewed and no additional complaints, except as documented Cardiovascular: Reports as per HPI and Reports no additional cardiovascular complaints Respiratory: Reports as per HPI and Reports no additional respiratory complaints Gastrointestinal: Reports as per HPI and Reports no additional gastrointestinal complaints Genitourinary: Reports no additional female genitourinary complaints Musculoskeletal: Reports no additional musculoskeletal complaints Skin/Breast: Reports system reviewed and no additional complaints, except as docu Psychiatric: Reports no additional psychiatric complaints Endocrine: Reports no additional endocrine complaints Hematologic/Lymphatic: Reports no additional hematologic/lymphatic complaints Allergic/Immunologic: Reports no additional allergic/immunologic complaints Reports system reviewed and no additional complaints, except as documented and Reports Abnormal speech present [facility] Past Medical History Medical History Hep C w/o coma, chronic PTSD (post-traumatic stress disorder) PTSD (post-traumatic stress disorder) Recurrent major depression-severe Surgical History History of surgery on arm Social History Social History Household Members: Other Housing: Homeless Do you presently have visiting nurse or other home services: No Alcohol intake: current Alcohol intake frequency: 3 or more drinks per day Alcohol type: hard liquor Patient Tobacco Use Status: Current everyday Tobacco user Tobacco use type: Cigarette Cigarette Packs Per Day: 1 Cigarettes Per Day: 20.0 Years Smoked: 25 e-Cigarette/Vaping Use: Never Used Second Hand Smoke Exposure: Yes Substance Use Type: Heroin Advance Directives: No Advance Directives Information Provided: No Guardian: No service: Yes ([employer]) Sexual orientation: Straight/Heterosexual Physical Exam Vital Signs: Vital Signs: Last Vital Signs Temp 98.7 F 03/01/23 15:07 Pulse 70 03/01/23 15:07 Resp 18 03/01/23 15:07 BP 127/65 03/01/23 15:07 Pulse Ox 100 03/01/23 15:07 O2 Del Method Room Air 03/01/23 15:07 BMI result Body Mass Index 25.8 Vital signs have been reviewed as appeared to be correct. Blood pressure normal. Heart rate normal. Respiration rate normal. Temperature normal. Oxygen saturation normal. Appearance: Alert. Oriented X3. No acute distress. Head: Normal external exam. Normocephalic. Atraumatic. No Vasquez signs noted. No raccoon eyes noted Eyes: PERRLA. EOMI. Conjunctiva and sclera normal. Eyelids normal. ENT: TM's Normal. Pharynx normal. Uvula midline. Moist mucous membranes. No trismus noted. No drooling noted. No muffled voice noted. Neck: Normal inspection. Neck supple. FROM. No adenopathy. Thyroid Normal. No meningeal signs. No neck mass noted. CVS: Normal heart rate and rhythm. Heart sound normal. No murmurs noted. Pulses normal throughout. Respiratory: No respiratory distress. Painless inspiration. Breath sounds normal. No wheezes/rales/rhonchi noted. Chest nontender. No accessory muscle usage noted or decreased air movement noted. Abdomen: Soft and nontender. Bowel sounds normal in all 4 quadrants. No distention noted. No organomegaly noted. No visible injury noted. Back: No CVA tenderness. Full range of motion noted. Skin: Skin warm and dry. Normal skin color. Normal skin turgor. No rashes/lesions/lacerations noted. Extremities: No lower extremity edema. Extremities exhibit normal range of motion. Extremities nontender. Neuro: Oriented X 3. Cranial nerve exam: II-XII are grossly intact No motor deficit. No sensory deficit. Reflexes normal. Patient Orientation: Person, Place, Time and Situation, okay hygiene and grooming. Fair eye contact, attentive, no tics or tremors. Level of Consciousness: Awake, Appropriate and Alert Patient Behavior: Appropriate, Guarded, Cooperative and Anxious Mood Description: Constricted, Blunted and Apprehensive Affect Description: Constricted, Blunted and Apprehensive Patient Cognition Impaired: No Ability to Follow Directions: Excellent Speech Pattern: Clear, Appropriate and Spontaneous Speech, nonpressured, spontaneous with regular rate and rhythm, normal volume and prosody. No dysarthria. Memory Description: Intact, Immediate Intact and Short Term Intact Hallucinations: None Delusions: Not Present Thought Process: Intact Thought Content: positive for Intact, positive for Logical, + Suicidal Ideation with no plan, denies Homicidal Ideation. Depressive Symptoms: Not present. Judgement and Insight: Limited but adequate. Course Course Course Narrative: Patient is accepted to [facility], we will arrange for transportation of the patient. Patient feels safe to go to the [facility], at discharge no SI, no HI, no visual hallucination. Medical Decision Making Differential Diagnosis Differential Diagnoses: The differential diagnosis associated with the presentation includes (Depression, alcohol withdrawal electrolyte disturbance, severe anemia, UTI.) Lab Data 03/01/23 09:36 03/01/23 09:36 Labs: Lab Results 03/01/23 03/01/23 03/01/23 Range/Units 09:29 09:29 09:36 WBC 5.0 (4.8-10.8) X10*3/uL RBC 4.82 (4.60-5.80) X10*6/uL Hgb 9.9 L (14.0-18.0) g/dl Hct 31.6 L (42.0-52.0) % MCV 65.6 L (80.0-98.0) fL MCH 20.5 L (27.0-33.0) pg MCHC 31.3 (31.0-36.0) g/dl RDW 17.0 H (11.0-16.0) % Plt Count 276 (160-400) X10*3/uL MPV 10.0 (9.4-12.4) fL Immature Gran % (Auto) 0.2 (0.0-0.4) % Neut % (Auto) 65.8 (45-73) % Lymph % (Auto) 21.6 (20-40) % [place] % (Auto) 10.6 (2-11) % Eos % (Auto) 0.8 (0-4) % Baso % (Auto) 1.0 (0-2) % Lymph # (Auto) 1.1 L (1.2-4.9) X10*3/uL [place] # (Auto) 0.5 (0.1-1.2) X10*3/uL Eos # (Auto) 0.0 (0.0-0.4) X10*3/uL Baso # (Auto) 0.1 (0.0-0.2) X10*3/uL Abs Immat Gran (auto) 0.01 (0.00-0.03) X10*3/uL Absolute Neuts (auto) 3.3 (2.0-8.3) x10*3/uL Absolute Nucleated RBC 0.000 (0.0-0.012) X10*3/uL Nucleated RBC % (auto) 0.0 (0.0-0.2) /100WBC Sodium (135-145) mmol/L Potassium (3.3-5.1) mmol/L Chloride (96-108) mmol/L Carbon Dioxide (22-29) mmol/L Anion Gap (12-20) BUN (9-16) mg/dL Creatinine (0.5-1.4) mg/dL Estim Creat Clear Calc Estimated GFR Random Glucose (60-115) mg/dL Calcium (8.4-10.2) mg/dL Total Bilirubin (0.0-1.0) mg/dL Direct Bilirubin (0.0-0.5) mg/dL AST (5-37) U/L ALT (0-40) U/L Alkaline Phosphatase (39-117) U/L Total Protein (6.5-8.0) g/dL Albumin (3.5-5.0) g/dL Lipase (8-78) U/L Urine Color Yellow Urine Appearance Clear Urine pH 6.0 (5.0-9.0) Ur Specific [place] 1.010 (1.005-1.025) Urine Protein Negative (Neg-Trace) mg/dL Urine Glucose (UA) Negative (Negative) mg/dL Urine Ketones 15 (Negative) mg/dL Urine Blood Negative (Negative) Urine Nitrite Negative (Negative) Ur Leukocyte Esterase Negative (Negative) Urine Opiates Screen Not Detected (Not Detect) Urine Fentanyl Screen POSITIVE H (Not Detect) Ur Barbiturates Screen Not Detected (Not Detect) Ur Phencyclidine Scrn Not Detected (Not Detect) Ur Amphetamines Screen Not Detected (Not Detect) U Benzodiazepines Scrn Not Detected (Not Detect) Urine Cocaine Screen POSITIVE H (Not Detect) U Marijuana (THC) Screen POSITIVE H (Not Detect) Ethyl Alcohol mg/dL 03/01/23 03/01/23 Range/Units 09:36 09:36 WBC (4.8-10.8) X10*3/uL RBC (4.60-5.80) X10*6/uL Hgb (14.0-18.0) g/dl Hct (42.0-52.0) % MCV (80.0-98.0) fL MCH (27.0-33.0) pg MCHC (31.0-36.0) g/dl RDW (11.0-16.0) % Plt Count (160-400) X10*3/uL MPV (9.4-12.4) fL Immature Gran % (Auto) (0.0-0.4) % Neut % (Auto) (45-73) % Lymph % (Auto) (20-40) % [place] % (Auto) (2-11) % Eos % (Auto) (0-4) % Baso % (Auto) (0-2) % Lymph # (Auto) (1.2-4.9) X10*3/uL [place] # (Auto) (0.1-1.2) X10*3/uL Eos # (Auto) (0.0-0.4) X10*3/uL Baso # (Auto) (0.0-0.2) X10*3/uL Abs Immat Gran (auto) (0.00-0.03) X10*3/uL Absolute Neuts (auto) (2.0-8.3) x10*3/uL Absolute Nucleated RBC (0.0-0.012) X10*3/uL Nucleated RBC % (auto) (0.0-0.2) /100WBC Sodium 137 (135-145) mmol/L Potassium 3.9 (3.3-5.1) mmol/L Chloride 103 (96-108) mmol/L Carbon Dioxide 24 (22-29) mmol/L Anion Gap 14 (12-20) BUN 11 (9-16) mg/dL Creatinine 0.70 (0.5-1.4) mg/dL Estim Creat Clear Calc 140.4 Estimated GFR > 60 Random Glucose 83 (60-115) mg/dL Calcium 8.6 D (8.4-10.2) mg/dL Total Bilirubin 1.0 (0.0-1.0) mg/dL Direct Bilirubin 0.5 (0.0-0.5) mg/dL AST 61 H (5-37) U/L ALT 51 H (0-40) U/L Alkaline Phosphatase 68 (39-117) U/L Total Protein 6.9 (6.5-8.0) g/dL Albumin 3.7 (3.5-5.0) g/dL Lipase 23 (8-78) U/L Urine Color Urine Appearance Urine pH (5.0-9.0) Ur Specific [place] (1.005-1.025) Urine Protein (Neg-Trace) mg/dL Urine Glucose (UA) (Negative) mg/dL Urine Ketones (Negative) mg/dL Urine Blood (Negative) Urine Nitrite (Negative) Ur Leukocyte Esterase (Negative) Urine Opiates Screen (Not Detect) Urine Fentanyl Screen (Not Detect) Ur Barbiturates Screen (Not Detect) Ur Phencyclidine Scrn (Not Detect) Ur Amphetamines Screen (Not Detect) U Benzodiazepines Scrn (Not Detect) Urine Cocaine Screen (Not Detect) U Marijuana (THC) Screen (Not Detect) Ethyl Alcohol 56 mg/dL Discharge Plan Discharge Clinical Impression: PTSD (post-traumatic stress disorder), Recurrent major depression-severe Patient Disposition: [facility] Transfer Details: [facility] resp[facility] Instructions: Depression (ED) Prescriptions: No Action methadone 10 mg/5 mL Solution 85 mg PO DAILY nicotine (polacrilex) 2 mg gum 1 gum PO Q2H PRN (Reason: nicotine cravings) gabapentin 400 mg capsule 2 cap PO TID triamcinolone acetonide 0.1 % cream 1 appl topical DAILY nicotine 21 mg/24 hr patch 24 hour 1 patch transdermal DAILY hydroxyzine HCl 25 mg tablet 1 tab PO BID PRN (Reason: anxiety) ferrous sulfate 324 mg (65 mg iron) tablet,delayed release (DR/EC) 1 tab PO DAILY multivitamin with folic acid [Daily-Jesenia (with folic acid)] 400 mcg tablet 1 tab PO DAILY Interventions: [place]-Suicide Risk Severity Scale Last Done: 03/01/23 11:50
[2023-03-01 09:13] VITALS: BP 132/88; BP 135/87; PULSE 68; PULSE 73; RESP 16; TEMP 37; O2SAT 98; O2SAT 99; BMI 25.8
[2023-03-01 09:41] LABS: MANUAL DIFF FLAG NO
[2023-03-01 09:44] LABS: Basophils Absolute Auto 0.1 X10*3/uL (0.0-0.2); Eosinophils Percent Auto 0.8 % (0-4); Hematocrit 31.6 % (42.0-52.0); Hemoglobin 9.9 g/dl (14.0-18.0); Imm Gran Abs Auto 0.01 X10*3/uL (0.00-0.03); Imm Gran Pct Auto 0.2 % (0.0-0.4); Lymphocytes Absolute Auto 1.1 X10*3/uL (1.2-4.9); Lymphocytes Percent Auto 21.6 % (20-40); Mean Corpuscular HGB Conc 31.3 g/dl (31.0-36.0); Mean Corpuscular Hemoglobin 20.5 pg (27.0-33.0); Mean Corpuscular Volume 65.6 fL (80.0-98.0); Monocytes Absolute Auto 0.5 X10*3/uL (0.1-1.2); Monocytes Percent Auto 10.6 % (2-11); Neutrophils Absolute Auto 3.3 x10*3/uL (2.0-8.3); Neutrophils Percent Auto 65.8 % (45-73); Platelet Count 276 X10*3/uL (160-400); Red Blood Count 4.82 X10*6/uL (4.60-5.80)
[2023-03-01 09:45] LABS: Appearance Urine Clear; Color Urine Yellow; Glucose Urine UA Negative (Negative); Leukocyte Esterase Urine Negative (Negative); Nitrite Urine Negative (Negative); Urine Blood Negative (Negative); Urine Ketones 15 mg/dL (Negative); Urine Protein Negative (Neg-Trace)
[2023-03-01 09:54] LABS: Amphetamine Screen Urine Not Detected (Not Detect); Barbiturates, Urine Not Detected (Not Detect); Benzodiazepines Screen Urine Not Detected (Not Detect); Cannabinoid Screen Urine POSITIVE (Not Detect); Cocaine Screen Urine POSITIVE (Not Detect); Fentanyl, urine POSITIVE (Not Detect); Opiate Screen Urine Not Detected (Not Detect); Phencyclidine Screen Urine Not Detected (Not Detect)
[2023-03-01 09:56] LABS: Ethanol 56 mg/dL
[2023-03-01 10:00] LABS: Alanine Aminotransferase 51 U/L (0-40); Albumin Level 3.7 g/dL (3.5-5.0); Alkaline Phosphatase 68 U/L (39-117); Anion Gap 14 (12-20); Aspartate Amino Transferase 61 U/L (5-37); Bilirubin Direct 0.5 mg/dL (0.0-0.5); Blood Urea Nitrogen 11 mg/dL (9-16); Calcium 8.6 mg/dL (8.4-10.2); Carbon Dioxide 24 mmol/L (22-29); Chloride 103 mmol/L (96-108); Creatinine Clr Calc Pharmacy 140.4; Estimated Glomerular Filt Rate > 60; Glucose Random 83 mg/dL (60-115); Lipase 23 U/L (8-78); Potassium 3.9 mmol/L (3.3-5.1); Sodium 137 mmol/L (135-145); Total Protein 6.9 g/dL (6.5-8.0)
[2023-03-01 15:07] VITALS: BP 127/65; PULSE 70; RESP 18; TEMP 37.1; O2SAT 100
--- NOTE | 2023-03-01 15:39 | MHC.CARE ---
Pt accepted to [facility], Care Team to arrange transportation
== END 2023-03-01 16:08 | disposition skilled nursing facility (03) ==
PROVIDERS: Emergency Provider Emergency Medicine
DX: F33.1 Major depressive disorder, recurrent, moderate (principal); R45.851 Suicidal ideations; F43.10 Post-traumatic stress disorder, unspecified; F17.210 Nicotine dependence, cigarettes, uncomplicated; F11.10 Opioid abuse, uncomplicated; Z79.899 Other long term (current) drug therapy; Z71.6 Tobacco abuse counseling
CPT/HCPCS: 36415; 80048; 80076; 80307; 81003; 82077; 83690; 85025; 99284; S9485

== ENCOUNTER 2023-07-29 05:46 | Emergency (ER) | payer MEDICAID, OTHER, SELFPAY ==
[2023-07-29] VITALS (12 sets, daily range): BP systolic 114–146; BP diastolic 56–84; PULSE 66–77; RESP 14–18; TEMP 36.2–37.9; O2SAT 92–98; BMI 26.5
--- NOTE | ~2023-07-29 | XR_ITS ---
EXAMINATION: XR CHEST CLINICAL INFORMATION: Chest pain COMPARISON: 04/20/2022 TECHNIQUE: AP upright and lateral views of the chest were obtained. FINDINGS: No significant abnormality is noted involving the heart, lungs, mediastinum, bony thorax or soft tissues. XR/XR chest 2V IMPRESSION: No acute disease or interval change
--- NOTE | ~2023-07-29 | CT_ITS ---
EXAMINATION: CT ABDOMEN AND PELVIS WITH CONTRAST CLINICAL INFORMATION: Abdominal pain COMPARISON: CT of 08/02/2020 TECHNIQUE: Multidetector volumetric images were obtained from the superior aspect of the liver through the pubic symphysis following administration 85 mL of Omnipaque 350 intravenous contrast. Sagittal and coronal reformatted images were obtained on the technologist's workstation. Oral contrast: No This CT examination was performed using dose optimization techniques as appropriate, variously including the following: *Automated exposure control *Adjustment of mA and/or kV according to patient size (this includes techniques or standardized protocols for targeted exams where dose is matched to indication/reason for exam; i.e. extremities or head) *Use of iterative reconstruction technique DLP: 774 mGy-cm FINDINGS: LUNG BASES: The visualized lung bases are unremarkable. LIVER, GALLBLADDER, AND BILIARY TREE: The liver is normal in size, shape, and attenuation. No focal hepatic lesion or biliary ductal dilatation is present. The gallbladder is unremarkable with no evidence of radiopaque gallstones, gallbladder wall thickening, or obvious pericholecystic inflammatory changes. PANCREAS: Unremarkable. SPLEEN: Enlarged, measuring 14.2 cm. ADRENAL GLANDS: Unremarkable. KIDNEYS AND URETERS: A 14 x 7 mm cyst is evident in the upper pole the right kidney. The kidneys are normal in size, shape, and attenuation. No hydronephrosis, hydroureter, or calculi seen. No perinephric stranding. BLADDER: Unremarkable. GASTROINTESTINAL TRACT: The small and large bowel are unremarkable. Fecal material distends the colon. The appendix is not visualized. . Evaluation of the intraperitoneal structures is limited by a marked paucity of intra-abdominal adipose tissue and the absence of oral contrast material. ABDOMINAL WALL: No significant hernia is appreciated. LYMPH NODES: Normal. VASCULAR: Unremarkable. PELVIC VISCERA: Unremarkable. OSSEOUS STRUCTURES: No suspicious bone lesions are evident. Degenerative disc disease is evident at L4-L5 and L5-S1 with retrolisthesis and vacuum phenomena at both levels. CT/CT abdomen pelvis w IV con IMPRESSION: 1. Splenomegaly, 14.2 cm. 2. No acute findings otherwise in the abdomen and pelvis. 3. Constipation. 4. Nonvisualization of the appendix. Fleischner guidelines were followed.
--- NOTE | ~2023-07-29 | CT_ITS ---
EXAMINATION: CT ANGIOGRAM OF THE CHEST WITH AND WITHOUT CONTRAST (CT PULMONARY ANGIOGRAM FOR PE) CLINICAL INFORMATION: Reason for Exam chest pain COMPARISON: None available. TECHNIQUE: Prior to contrast administration, noncontrast localization images were obtained. Subsequently, multidetector volumetric imaging was performed from the thoracic inlet to below the diaphragms following the administration of 85 mL Omnipaque 350 intravenous contrast. No contrast reaction reported Sagittal, coronal, and MIP oblique sagittal reformatted images were obtained on the CT workstation, uploaded to PACS, and reviewed. This CT examination was performed using dose optimization techniques as appropriate, variously including the following: *Automated exposure control *Adjustment of mA and/or kV according to patient size (this includes techniques or standardized protocols for targeted exams where dose is matched to indication/reason for exam; i.e. extremities or head) *Use of iterative reconstruction technique Total exam dose-length product 1142 mGy-cm FINDINGS: QUALITY OF STUDY/CONTRAST BOLUS: Satisfactory. PULMONARY ARTERIES: No pulmonary emboli. THORACIC AORTA: No aneurysm. LUNG: The lungs are well-expanded and clear of acute pneumonic process. No pulmonary nodule, mass or consolidation seen. PLEURA: No pleural effusion or pneumothorax. MEDIASTINUM: The thyroid lobes are symmetric and normal. The central trachea and the bronchi widely patent. Heart there is borderline enlarged cardiomegaly. There is good opacification of pulmonary artery and is branches without any intraluminal filling defect. There is no aneurysmal dilatation. Size and the great vessels are normal caliber. No evidence of septal bowing or right heart strain. CORONARY ARTERY CALCIFICATION: None visualized on this study. CHEST WALL/AXILLA: No axillary or internal mammary lymphadenopathy. OSSEOUS STRUCTURES: No acute or suspicious osseous abnormality. UPPER ABDOMEN: The liver is diffusely attenuated without any focal lesion seen however limited. The spleen, pancreas and bilateral adrenal glands are unremarkable. No reflux of contrast into the hepatic veins to suggest elevated right heart pressures. CT/CT angio chest PE protocol IMPRESSION: 1. No evidence of PE. 2. No evidence of aortic aneurysm. 3. Borderline cardiomegaly. VTE: negative.
--- NOTE | 2023-07-29 06:02 | PC.NURSE ---
Pt ca& responds to verbal stimuli appropriately. Pt reports 10/10 body aches from the waist up with an onset of x1-2 days. Pt reports the last time he drank alcohol or used cocaine was today. Plan of care ongoing.
--- NOTE | 2023-07-29 06:44 | ECG_ITS ---
Test Reason : CP Blood Pressure : / mmHG Vent. Rate : 070 BPM Atrial Rate : 070 BPM P-R Int : 144 ms QRS Dur : 090 ms QT Int : 430 ms P-R-T Axes : 047 043 015 degrees QTc Int : 464 ms Normal sinus rhythm Normal ECG When compared with ECG of 19-MAY-2022 15:56, No significant change was found Referred By: Ladi Lira Electronically Signed By:ZAC LANE
--- NOTE | 2023-07-29 06:45 | ED_ITS ---
HPI - General Adult General Chief complaint: Psychiatric Symptoms Stated complaint: body pain 2x days Time Seen by Provider: 07/29/23 06:34 Source: patient and RN notes reviewed Mode of arrival: EMS Limitations: no limitations History of Present Illness HPI narrative: This is a 43-year-old male, with a past medical history of untreated hepatitis- C, alcohol and cocaine abuse, presenting to the emergency department with complaints of severe body pain from the waist up . Patient is a poor historian as patient occasionally will fall asleep during exam, easily arousable. Patient states that yesterday while he was shooting cocaine into his right arm he suddenly developed pain all over. He states that the worst pain that he is having is in his chest. He states that the chest pain is constant and does not radiate. Chest pain worsens with movement and with palpation. Upon further questioning he states that the chest pain started 5 days ago. He denies any shortness of breath. No fevers or chills. Endorsing right upper quadrant pain. Denies nausea, vomiting, diarrhea. Endorsing constipation. Denies taking any medications at home to treat his current symptoms. He states that he drinks alcohol daily approximates 6-7 beers per day. Has a history of alcohol withdrawal seizures. No other complaints or concerns at this time. MD complaint: Chest pain, body aches Onset (ago): day(s) Location: chest, back and abdomen Radiation: non-radiation Severity: severe Quality: stabbing and aching Pain Consistency: constant Relieving factors: none Exacerbating factors: none Associated symptoms: denies other symptoms Treatments prior to arrival: none Related Data Home Medications Medication Instructions Recorded Confirmed nicotine (polacrilex) 2 mg gum 1 gum PO Q2H PRN nicotine cravings 06/20/22 07/29/23 nicotine 21 mg/24 hr daily 1 patch transdermal DAILY 06/20/22 07/29/23 transdermal patch Allergies Allergy/AdvReac Type Severity Reaction Status Date / Time fish derived [FISH] Allergy Unknown UNKNOWN - Verified 03/01/23 11:41 NOT ANAPHYLAXIS PER PATIENT trazodone AdvReac Severe priapr Verified 05/18/22 05:35 Review of Systems 2 Review of Systems: Yes all other systems are reviewed and are negative Constitutional: Constitutional: Reports as per [facility] Past Medical History Medical History Hep C w/o coma, chronic PTSD (post-traumatic stress disorder) PTSD (post-traumatic stress disorder) Recurrent major depression-severe Surgical History History of surgery on arm Social History Social History Household Members: Other Housing: Homeless Do you presently have visiting nurse or other home services: No Alcohol intake: current Alcohol intake frequency: 3 or more drinks per day Alcohol type: hard liquor Patient Tobacco Use Status: Current everyday Tobacco user Tobacco use type: Cigarette Cigarette Packs Per Day: 1 Cigarettes Per Day: 20.0 Years Smoked: 25 Smoked in Last 30 Days: Yes e-Cigarette/Vaping Use: Never Used Second Hand Smoke Exposure: Yes Use of substances other than those prescribed or required for medical reasons: Yes Substance Use Type: Crack/Cocaine Advance Directives: No Advance Directives Information Provided: Yes Healthcare Proxy: No Guardian: No service: Yes ([employer]) Sexual orientation: Straight/Heterosexual Physical Exam ED Vital Signs: Vital Signs - 24 hr 07/29/23 23:15 07/30/23 10:32 07/30/23 11:27 Temperature 97.2 F 98.7 F Pulse Rate 70 72 Respiratory Rate 16 18 18 Blood Pressure 140/76 H 142/92 H Pulse Oximetry 96 96 Oxygen Delivery Method Room Air Room Air 07/30/23 14:34 07/30/23 16:01 07/30/23 16:05 Temperature 100.5 F H 100.3 F 100.3 F Pulse Rate 79 65 Respiratory Rate 17 16 Blood Pressure 132/99 H 138/74 Pulse Oximetry 98 96 Oxygen Delivery Method Room Air Room Air 07/30/23 17:00 Temperature 99.9 F Pulse Rate Respiratory Rate Blood Pressure Pulse Oximetry Oxygen Delivery Method BMI result Body Mass Index 26.5 Const General: cooperative, comfortable, poor hygiene and tired appearing Orientation/consciousness: patient oriented x3 Limitations: no limitations HENMT Head: Yes normal to inspection, Yes normocephalic and Yes atraumatic Ears: hearing grossly normal bilaterally General nose exam: Normal external nose present Face and sinus: Yes normal facial exam Mouth: Normal oral and palatal mucosa present, oropharynx normal and moist mucous membranes Throat: Yes posterior oropharynx normal Eyes General: appearance normal, both eyes and all related structures Eyelids: Yes eyelids normal Conjunctivae: conjunctivae normal Sclerae: sclerae normal Pupils: Equal, round and reactive pupils present EOM: EOMs intact bilaterally Neck Neck: Yes normal visual inspection, Yes full ROM and Yes no lymphadenopathy Lymphatic: no lymphadenopathy noted Chest Other: Tenderness palpation across the anterior chest wall. Chest palpation & inspection: normal inspection of the chest Resp Effort & Inspection: normal respiratory effort and able to speak in complete sentences Auscultation: clear to auscultation bilaterally, no crackles, no rales, no rhonchi and no wheezes Cardio Rate: regular rate Rhythm: regular rhythm Heart sounds: S1 normal heart sound present and S2 normal heart sound present GI Other: Abdomen is soft, nondistended, with tenderness palpation in the right upper quadrant. Inspection: Yes normal to inspection Skin General skin exam: no rashes or lesions noted Trauma: no lacerations or abrasions Wounds: no wounds Neuro General: patient oriented x3 and moves all extremities Cranial nerves: Yes Equal, round and reactive pupils present Extrem General: Yes normal to inspection Right upper extremity: normal to inspection Left upper extremity: normal to inspection Right lower extremity: normal to inspection Left lower extremity: normal to inspection Course Course Course Narrative: 7:11 p.m. 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 for discharge to [facility] Reevaluation(s) Reevaluation #1: CPK mildly elevated 840. Will medicate with 1 L of IV fluids. Patient asleep, resting comfortably in exam room, upon awakening, patient reporting still severe persistent chest pain and body pain. Patient reporting no relief after receiving aspirin. Viral swabs still pending. Urine toxicology revealing positive opiates, fentanyl, and cocaine. Negative troponin. Upon further questioning, patient reports that the chest pain started 5 days ago and has been constant. Time: 07:45 Reevaluation #2: Patient sleeping in exam room. Upon waking patient, he is still complaining of body aches and chest pain. He states I am in withdrawal, sweetheart . CIWA and COWS scale ordered, pt medicated with ativan. Due to pt with persisnt chest pain, discussed case with my attending physician, Dr. Dougherty, will medicate with Toradol 30 mg IV chest CTA and CT abdomen and pelvis ordered. Time: 09:13 Reevaluation #3: CTA chest and CT abdomen and pelvis unremarkable for acute findings. Patient medicated with Toradol. I was notified by nursing staff the patient was having some suicidal ideations. Patient started to have elevation in temperature, lactic and cultures were ordered. Lactic negative. I came and evaluated the patient and patient reports that if he was to leave here today he would kill himself with an overdose. He denies any homicidal ideations. He endorses that he does have auditory hallucinations stating that he hears his at times stating to ?hold on . He reports that he also sees shadows, he has been seeing shadows for years. Crisis evaluation was ordered. Additional Reevaluation(s): Patient feeling slightly improved after receiving morphine, 2 L of IV fluids, troponin x2 negative. Upon each reassessment, patient is resting comfortably. Upon awaking, pt reporting body ache pain. Throughout his ER stay, patient has had a complete workup without any acute findings to distinguish his pain. I discussed case with my attending physician, Dr. Dougherty. Patient is medically cleared, will be seen by crisis and recovery team. It is 7:40 a.m.. I have assumed care at this time. Patient is pending care team evaluation. Patient has polysubstance abuse. Patient has symptomatology of depressive disorder. Medications Administered Generic Name Dose Route Start Last Admin Trade Name Freq PRN Reason Stop Dose Admin Lorazepam 2 mg 07/29/23 19:55 07/30/23 10:25 Lorazepam 1 Mg Tablet PO 2 mg RQ4H WHILE AWAKE PRN Administration Alcohol Withdrawal Discontinued Medications Generic Name Dose Route Start Last Admin Trade Name Freq PRN Reason Stop Dose Admin Acetaminophen 975 mg 07/30/23 16:01 07/30/23 16:04 Acetaminophen 325 Mg Tablet PO 07/30/23 16:02 975 mg ONCE ONE Administration Aspirin 324 mg 07/29/23 06:43 07/29/23 06:59 Aspirin 81 Mg Tab.Chew PO 07/29/23 06:44 324 mg ONCE ONE Administration Clonidine HCl 0.1 mg 07/30/23 11:10 07/30/23 11:20 Clonidine Hcl 0.1 Mg Tablet PO 07/30/23 11:11 0.1 mg ONCE ONE Administration Protocol Hydroxyzine HCl 25 mg 07/30/23 11:10 07/30/23 11:20 Hydroxyzine Hcl 25 Mg Tablet PO 07/30/23 11:11 25 mg ONCE ONE Administration Sodium Chloride 1,000 mls @ 999 mls/hr 07/29/23 07:34 07/29/23 09:25 Ns IV 07/29/23 08:34 Infused .Q1H1M ONE Infusion Sodium Chloride 1,000 mls @ 999 mls/hr 07/29/23 13:34 07/29/23 19:03 Ns IV 07/29/23 14:34 Infused .Q1H1M ONE Infusion Ibuprofen 600 mg 07/30/23 01:16 07/30/23 01:19 Ibuprofen 600 Mg Tablet PO 07/30/23 01:17 600 mg ONCE ONE Administration Ibuprofen 600 mg 07/30/23 14:27 07/30/23 14:34 Ibuprofen 600 Mg Tablet PO 07/30/23 14:28 600 mg ONCE ONE Administration Iohexol 100 ml 07/29/23 10:20 07/29/23 10:21 Iohexol 350 Mg/Ml 100 Ml Infus..Btl IV 07/29/23 10:21 85 ml ONCE ONE Administration Ketorolac Tromethamine 30 mg 07/29/23 09:15 07/29/23 09:23 Ketorolac Tromethamine 30 Mg/Ml Vial IVPUSH 07/29/23 09:16 30 mg ONCE ONE Administration Lorazepam 2 mg 07/29/23 12:07 07/29/23 12:12 Lorazepam 1 Mg Tablet PO 07/29/23 12:08 2 mg ONCE STA Administration Lorazepam 2 mg 07/29/23 18:22 07/29/23 18:48 Lorazepam 1 Mg Tablet PO 07/29/23 18:23 2 mg ONCE ONE Administration Methadone HCl 10 mg 07/30/23 09:21 07/30/23 09:37 Methadone Hcl 10 Mg Tablet PO 07/30/23 09:22 10 mg ONCE ONE Administration Methadone HCl 15 mg 07/30/23 11:10 07/30/23 11:20 Methadone Hcl 10 Mg Tablet PO 07/30/23 11:11 15 mg ONCE ONE Administration Morphine Sulfate 4 mg 07/29/23 15:33 07/29/23 15:37 Morphine Sulfate 4 Mg/Ml Cartridge IVPUSH 07/29/23 15:34 4 mg ONCE ONE Administration Protocol Medical Decision Making Medical Decision Making [facility] Narrative: This is a 43-year-old male, with a past medical history of untreated hepatitis- C, alcohol and cocaine abuse, presenting to the emergency department complaints of severe body pain from the waist up . He states that the most pain is he is having is in his chest. He denies any cardiac history. He states that he developed the symptoms after use with cocaine yesterday. He states that the chest pain has been constant. Upon further questioning he states that his chest pain has been constant for the last 5 days, exacerbated by palpation. Given onset and duration of symptoms, ACS is less likely. On arrival blood pressure 146/72, all other vital signs within normal limits. Lungs are clear to auscultation bilaterally. Patient has diffuse tenderness to palpation across the anterior chest wall. Differential diagnoses include ACS, rhabdomyolysis, cocaine abuse, polysubstance withdrawal, dehydration, electrolyte abnormality, COVID, viral syndrome Plan: Labs, EKG, equipment monitor phototypesetting, cardiac work up, urine drug screen, UA, chest x-ray, EKG. Patient medicated with aspirin 324 given chest pain. Differential Diagnosis Differential Diagnoses: The differential diagnosis associated with the presentation includes See above Consult Healthcare Provider Management of the patient was discussed with: Behavioral Health Provider Lab Data [facility] Lab Attestation statement: I reviewed the patient's lab results. See above 07/29/23 07:02 07/29/23 07:02 Labs: Lab Results 07/29/23 07/29/23 07/29/23 Range/Units 07:02 13:55 16:17 WBC 9.1 (4.8-10.8) X10*3/uL RBC 4.66 (4.60-5.80) X10*6/uL Hgb 9.8 L (14.0-18.0) g/dl Hct 31.3 L (42.0-52.0) % MCV 67.2 L (80.0-98.0) fL MCH 21.0 L (27.0-33.0) pg MCHC 31.3 (31.0-36.0) g/dl RDW 15.9 (11.0-16.0) % Plt Count 292 (160-400) X10*3/uL MPV 10.0 (9.4-12.4) fL Immature Gran % (Auto) 0.5 H (0.0-0.4) % Neut % (Auto) 67.8 (45-73) % Lymph % (Auto) 15.0 L (20-40) % [place] % (Auto) 15.0 H (2-11) % Eos % (Auto) 1.0 (0-4) % Baso % (Auto) 0.7 (0-2) % Lymph # (Auto) 1.4 (1.2-4.9) X10*3/uL [place] # (Auto) 1.4 H (0.1-1.2) X10*3/uL Eos # (Auto) 0.1 (0.0-0.4) X10*3/uL Baso # (Auto) 0.1 (0.0-0.2) X10*3/uL Abs Immat Gran (auto) 0.05 H (0.00-0.03) X10*3/uL Absolute Neuts (auto) 6.2 (2.0-8.3) x10*3/uL Absolute Nucleated RBC 0.000 (0.0-0.012) X10*3/uL Nucleated RBC % (auto) 0.0 (0.0-0.2) /100WBC PT 12.3 (11.1-13.3) SEC INR 1.0 (0.9-1.1) APTT 33.8 (26.0-36.4) SEC Sodium 136 (135-145) mmol/L Potassium 3.7 (3.3-5.1) mmol/L Chloride 101 (96-108) mmol/L Carbon Dioxide 24 (22-29) mmol/L Anion Gap 15 (12-20) BUN 8 L (9-16) mg/dL Creatinine 0.71 (0.5-1.4) mg/dL Estim Creat Clear Calc 137.0 Estimated GFR > 60 Random Glucose 106 (60-115) mg/dL Lactic Acid 0.9 (0.5-2.0) mmol/L Calcium 8.7 (8.4-10.2) mg/dL Magnesium 2.1 (1.6-2.6) mg/dL Total Bilirubin 0.7 (0.0-1.0) mg/dL Direct Bilirubin 0.4 (0.0-0.5) mg/dL AST 145 H (5-37) U/L ALT 89 H (0-40) U/L Alkaline Phosphatase 82 (39-117) U/L Total Creatine Kinase 840 H (38-174) U/L Troponin I High Sens < 2.7 < 2.7 (<3.5-35.0) ng/L Total Protein 7.9 (6.5-8.0) g/dL Albumin 3.8 (3.5-5.0) g/dL Lipase 14 (8-78) U/L Urine Color Yellow Urine Appearance Clear Urine pH 6.0 (5.0-9.0) Ur Specific [place] 1.015 (1.005-1.025) Urine Protein Trace (Neg-Trace) mg/dL Urine Glucose (UA) Negative (Negative) mg/dL Urine Ketones Negative (Negative) mg/dL Urine Blood Negative (Negative) Urine Nitrite Negative (Negative) Ur Leukocyte Esterase Negative (Negative) Urine Opiates Screen POSITIVE H (Not Detect) Urine Fentanyl Screen POSITIVE H (Not Detect) Ur Barbiturates Screen Not Detected (Not Detect) Ur Phencyclidine Scrn Not Detected (Not Detect) Ur Amphetamines Screen Not Detected (Not Detect) U Benzodiazepines Scrn Not Detected (Not Detect) Urine Cocaine Screen POSITIVE H (Not Detect) U Marijuana (THC) Screen Not Detected (Not Detect) Ethyl Alcohol 154 mg/dL Influenza Type A (PCR) NEGATIVE (Negative) Influenza Type B (PCR) NEGATIVE (Negative) RSV RNA Qual (PCR) NEGATIVE (Negative) SARS-CoV-2 RNA (RT-PCR) NEGATIVE (Negative) Independent Interpretation I performed an independent interpretation of an: EKG Interpretation: EKG normal sinus rhythm with a ventricular rate of 70bpm, MI interval 144, QTC 464, no ST elevation or depression Radiology Impression Discussion of test interpretation with radiology: I have reviewed the radiologist's reading. Radiologist Impression: Ordering Physician: Ladi Lira Date of Service: 07/29/23 Procedure(s): CT angio chest PE protocol Accession Number(s): [id number] cc: Ladi Lira; Physician,Unknown ~ EXAMINATION: CT ANGIOGRAM OF THE CHEST WITH AND WITHOUT CONTRAST (CT PULMONARY ANGIOGRAM FOR PE) CLINICAL INFORMATION: Reason for Exam chest pain COMPARISON: None available. TECHNIQUE: Prior to contrast administration, noncontrast localization images were obtained. Subsequently, multidetector volumetric imaging was performed from the thoracic inlet to below the diaphragms following the administration of 85 mL Omnipaque 350 intravenous contrast. No contrast reaction reported Sagittal, coronal, and MIP oblique sagittal reformatted images were obtained on the CT workstation, uploaded to PACS, and reviewed. This CT examination was performed using dose optimization techniques as appropriate, variously including the following: *Automated exposure control *Adjustment of mA and/or kV according to patient size (this includes techniques or standardized protocols for targeted exams where dose is matched to indication/reason for exam; i.e. extremities or head) *Use of iterative reconstruction technique Total exam dose-length product 1142 mGy-cm FINDINGS: QUALITY OF STUDY/CONTRAST BOLUS: Satisfactory. PULMONARY ARTERIES: No pulmonary emboli. THORACIC AORTA: No aneurysm. LUNG: The lungs are well-expanded and clear of acute pneumonic process. No pulmonary nodule, mass or consolidation seen. PLEURA: No pleural effusion or pneumothorax. MEDIASTINUM: The thyroid lobes are symmetric and normal. The central trachea and the bronchi widely patent. Heart there is borderline enlarged cardiomegaly. There is good opacification of pulmonary artery and is branches without any intraluminal filling defect. There is no aneurysmal dilatation. Size and the great vessels are normal caliber. No evidence of septal bowing or right heart strain. CORONARY ARTERY CALCIFICATION: None visualized on this study. CHEST WALL/AXILLA: No axillary or internal mammary lymphadenopathy. OSSEOUS STRUCTURES: No acute or suspicious osseous abnormality. UPPER ABDOMEN: The liver is diffusely attenuated without any focal lesion seen however limited. The spleen, pancreas and bilateral adrenal glands are unremarkable. No reflux of contrast into the hepatic veins to suggest elevated right heart pressures. CT/CT angio chest PE protocol IMPRESSION: 1. No evidence of PE. 2. No evidence of aortic aneurysm. 3. Borderline cardiomegaly. VTE: negative. EXAMINATION: CT ABDOMEN AND PELVIS WITH CONTRAST CLINICAL INFORMATION: Abdominal pain COMPARISON: CT of 08/02/2020 TECHNIQUE: Multidetector volumetric images were obtained from the superior aspect of the liver through the pubic symphysis following administration 85 mL of Omnipaque 350 intravenous contrast. Sagittal and coronal reformatted images were obtained on the technologist's workstation. Oral contrast: No This CT examination was performed using dose optimization techniques as appropriate, variously including the following: *Automated exposure control *Adjustment of mA and/or kV according to patient size (this includes techniques or standardized protocols for targeted exams where dose is matched to indication/reason for exam; i.e. extremities or head) *Use of iterative reconstruction technique DLP: 774 mGy-cm FINDINGS: LUNG BASES: The visualized lung bases are unremarkable. LIVER, GALLBLADDER, AND BILIARY TREE: The liver is normal in size, shape, and attenuation. No focal hepatic lesion or biliary ductal dilatation is present. The gallbladder is unremarkable with no evidence of radiopaque gallstones, gallbladder wall thickening, or obvious pericholecystic inflammatory changes. PANCREAS: Unremarkable. SPLEEN: Enlarged, measuring 14.2 cm. ADRENAL GLANDS: Unremarkable. KIDNEYS AND URETERS: A 14 x 7 mm cyst is evident in the upper pole the right kidney. The kidneys are normal in size, shape, and attenuation. No hydronephrosis, hydroureter, or calculi seen. No perinephric stranding. BLADDER: Unremarkable. GASTROINTESTINAL TRACT: The small and large bowel are unremarkable. Fecal material distends the colon. The appendix is not visualized. . Evaluation of the intraperitoneal structures is limited by a marked paucity of intra-abdominal adipose tissue and the absence of oral contrast material. ABDOMINAL WALL: No significant hernia is appreciated. LYMPH NODES: Normal. VASCULAR: Unremarkable. PELVIC VISCERA: Unremarkable. OSSEOUS STRUCTURES: No suspicious bone lesions are evident. Degenerative disc disease is evident at L4-L5 and L5-S1 with retrolisthesis and vacuum phenomena at both levels. CT/CT abdomen pelvis w IV con IMPRESSION: 1. Splenomegaly, 14.2 cm. 2. No acute findings otherwise in the abdomen and pelvis. 3. Constipation. 4. Nonvisualization of the appendix. Fleischner guidelines were followed. Dictated By: Davian Becker MD Scores Heart Score History: -1- moderately suspicious Age: -1- >45 - <65 Risk factory: -1- 1 or 2 risk factors Discharge Plan Discharge Clinical Impression: Opioid use disorder, Cocaine abuse, Myalgia Patient Disposition: Home, Self-Care Additional Instructions: Your workup today showed mild dehydration, we have given you IV fluids. Your CT scan of your chest and abdomen did not show any acute abnormalities. Is unclear what is causing you to have these body aches however there is no medical reason feet have this pain at this time. Please stop using drugs as this can be the cause of you to have this type of pain. Please take ibuprofen and Tylenol as needed body aches. Please follow the care team and crisis recommendations. If any new or worsening symptoms occur, please return for re-evaluation. Prescriptions: No Action nicotine (polacrilex) 2 mg gum 1 gum PO Q2H PRN (Reason: nicotine cravings) nicotine 21 mg/24 hr patch 24 hour 1 patch transdermal DAILY Interventions: Walker-Suicide Risk Severity Scale Last Done: 07/30/23 16:59
[2023-07-29] MEDS: Aspirin 81 MG TAB.CHEW 324 MG PO (06:59)
--- NOTE | 2023-07-29 07:02 | PC.NURSE ---
medication administered per provider order. tech currently drawing labs and obtaining urine.
--- NOTE | 2023-07-29 07:03 | PC.NURSE ---
Report and handoff given to oncoming RN be
[2023-07-29 07:12] LABS: MANUAL DIFF FLAG NO
[2023-07-29 07:14] LABS: Appearance Urine Clear; Color Urine Yellow; Glucose Urine UA Negative (Negative); Leukocyte Esterase Urine Negative (Negative); Nitrite Urine Negative (Negative); Specific Gravity - Urine 1.015 (1.005-1.025); Urine Blood Negative (Negative); Urine Ketones Negative (Negative); Urine Protein Trace mg/dL (Neg-Trace)
--- NOTE | 2023-07-29 07:18 | PC.NURSE ---
pt a&ox3, vss, nsr on the synthetic gem press operator. pt verbalizing 10/10 right sided chest pain that radiates to right neck & right shoulder/arm. pt verbalizes that he has never had this type of pain in his life. pt verbalizes that he is homeless and last drink was yesterday (unknown of what he drank and how much). pt also verbalizes that he injects cocaine into his hands - last use was yesterday (unknown on how much). pt currently tearful and agitated d/t pain. states he is not able to sit down because the pain increases. pt currently standing bedside. red socks on for fall precautions. pt completely changed over. respirations even and unlabored. call ellsworth placed on side of bed.
[2023-07-29 07:22] LABS: Amphetamine Screen Urine Not Detected (Not Detect); Barbiturates, Urine Not Detected (Not Detect); Benzodiazepines Screen Urine Not Detected (Not Detect); Cannabinoid Screen Urine Not Detected (Not Detect); Cocaine Screen Urine POSITIVE (Not Detect); Fentanyl, urine POSITIVE (Not Detect); Opiate Screen Urine POSITIVE (Not Detect); Phencyclidine Screen Urine Not Detected (Not Detect)
[2023-07-29 07:23] LABS: Prothrombin Time 12.3 SEC (11.1-13.3)
[2023-07-29 07:25] LABS: Basophils Absolute Auto 0.1 X10*3/uL (0.0-0.2); Basophils Percent Auto 0.7 % (0-2); Eosinophils Absolute Auto 0.1 X10*3/uL (0.0-0.4); Hematocrit 31.3 % (42.0-52.0); Hemoglobin 9.8 g/dl (14.0-18.0); Imm Gran Abs Auto 0.05 X10*3/uL (0.00-0.03); Imm Gran Pct Auto 0.5 % (0.0-0.4); Lymphocytes Absolute Auto 1.4 X10*3/uL (1.2-4.9); Mean Corpuscular HGB Conc 31.3 g/dl (31.0-36.0); Mean Corpuscular Volume 67.2 fL (80.0-98.0); Monocytes Absolute Auto 1.4 X10*3/uL (0.1-1.2); Neutrophils Absolute Auto 6.2 x10*3/uL (2.0-8.3); Neutrophils Percent Auto 67.8 % (45-73); Platelet Count 292 X10*3/uL (160-400); Red Blood Count 4.66 X10*6/uL (4.60-5.80); Red Cell Distribution Width 15.9 % (11.0-16.0); White Blood Count 9.1 X10*3/uL (4.8-10.8)
[2023-07-29 07:26] LABS: Ethanol 154 mg/dL; Partial Thromboplastin Time 33.8 SEC (26.0-36.4)
[2023-07-29 07:30] LABS: Alanine Aminotransferase 89 U/L (0-40); Albumin Level 3.8 g/dL (3.5-5.0); Alkaline Phosphatase 82 U/L (39-117); Anion Gap 15 (12-20); Aspartate Amino Transferase 145 U/L (5-37); Bilirubin Direct 0.4 mg/dL (0.0-0.5); Bilirubin Total 0.7 mg/dL (0.0-1.0); Blood Urea Nitrogen 8 mg/dL (9-16); Calcium 8.7 mg/dL (8.4-10.2); Carbon Dioxide 24 mmol/L (22-29); Chloride 101 mmol/L (96-108); Estimated Glomerular Filt Rate > 60; Glucose Random 106 mg/dL (60-115); Lipase 14 U/L (8-78); Magnesium 2.1 mg/dL (1.6-2.6); Potassium 3.7 mmol/L (3.3-5.1); Sodium 136 mmol/L (135-145); Total Protein 7.9 g/dL (6.5-8.0)
[2023-07-29 07:39] LABS: Troponin-I High Sensitivity < 2.7 ng/L (<3.5-35.0)
[2023-07-29 08:10] LABS: Influenza A PCR NEGATIVE (Negative); Influenza B PCR NEGATIVE (Negative); Resp Syncy Virus RNA Qual PCR NEGATIVE (Negative); SARS COV2 PCR INHOUSE NEGATIVE (Negative)
[2023-07-29] MEDS: 0.9 % Sodium Chloride 1,000 ML 999 ML IV ×2 (08:24→14:01)
--- NOTE | 2023-07-29 08:25 | PC.NURSE ---
20gIV placed in the right AC after multiple attempts. pt was a hard stick d/t scar tissue and hx of IV drug use. IVF hung and administered per provider order. pt verbalizes that pain level did not change despite aspirin administration. pt increasingly diaphoretic. updated temp = 99.4. skin warm to touch. nsr on the property assessment monitor. pt resting comfortably in no apparent distress with his eyes closed. respirations even and unlabored. call ellsworth placed within reach.
--- NOTE | 2023-07-29 08:42 | PC.NURSE ---
xray bedside w/ pt.
--- NOTE | 2023-07-29 09:00 | PC.NURSE ---
pt returned from xray. attempted to reposition pt to auscultate lung sounds. from what this rn could hear due to lack of mobility from pt - lung sounds clear throughout. heart sounds regular and wnl. nsr on the quality assurance monitor. pt resting in no apparent distress. respirations even and unlabored. call ellsworth placed within reach.
[2023-07-29] MEDS: Ketorolac Tromethamine 30 MG/ML VIAL IVPUSH (09:23)
--- NOTE | 2023-07-29 09:25 | PC.NURSE ---
CT came to bedside - this RN stated that she wanted to administer medication prior to CT so pain level decreases so mobility can improve for scans to be completed. medication administered per provider order. CT states that they will come back shortly.
--- NOTE | 2023-07-29 09:32 | PC.NURSE ---
pt currently being brought to CT.
--- NOTE | 2023-07-29 09:40 | PC.NURSE ---
pt brought to CT but were unaware that someone else was ahead of him so they brought him back to his room. vss and up to date. nsr on the satellite project site monitor. IVF still hung and running. blanket placed under arm in attempts to keep arm straight so fluids can flow more adequately. pt resting comfortably in no apparent distress. lights dimmed & call ellsworth placed within reach.
--- NOTE | 2023-07-29 09:48 | PC.NURSE ---
pt placed on IVF pump d/t not being able to keep arm straight for fluids to be administered. pt now being brought to CT.
--- NOTE | 2023-07-29 10:09 | PC.NURSE ---
pt returned from CT. IVF continues to be hung and running. vss. nsr on the envelope sealer. pt verbalizes pain level has not changed despite medication administration. resting comfortably with the lights dimmed. call ellsworth placed within reach.
[2023-07-29] MEDS: iohexoL 350 MG/ML 100 ML INFUS..BTL IV (10:21)
--- NOTE | 2023-07-29 11:30 | PC.NURSE ---
pt verbalizing that he is going through withdrawals from substances and etoh. CIWA = 21, COWS = 13. will notify provider kurtz. pt still verbalizing 10/10 generalized upper body aches and is now in apparent distress/discomfort. pt agitated d/t pain at this time.
--- NOTE | 2023-07-29 12:05 | PC.NURSE ---
pt c/o feeling like i am going to have a seizure md aware. no seizure activity at this time. seizure pads are in place.
[2023-07-29] MEDS: LORazepam 1 MG TABLET 2 MG PO ×2 (12:12→18:48)
--- NOTE | 2023-07-29 13:05 | PC.NURSE ---
pt newly endorsing SI at this time. states that he wants to and that he needs to be admitted somewhere because if not, then he is going to buy fentanyl and shoot up to kill himself. pt currently stating that he is interested in detox and would like to speak with someone about it. will reach out to proper resources in regards to pt's request.
--- NOTE | 2023-07-29 13:20 | PC.NURSE ---
COMMUNITY ENGAGEMENT MANAGER AND MLP (CHUCK) AT BEDSIDE, PT AWARE OF PLAN OF CARE.
--- NOTE | 2023-07-29 13:54 | MHC.RECOVSUP ---
Attempted to meet with pt in ED17 who is here for chest pain. When arriving to room pt was endorsing SI in addition to auditory and visual hallucinations stating he plans to intentionally OD. Will follow up with pt if cleared by Care Team.
--- NOTE | 2023-07-29 14:01 | PC.NURSE ---
IVF administered per provider order. tech bedside drawing repeat labs.
--- NOTE | 2023-07-29 14:10 | PC.NURSE ---
vss. nsr on architectural wood model maker. 2nd set of cultures drawn and sent to lab by tech. pressure bag applied to IVF to help administer fluids quicker. seizure pad precautions in place. 1:1 sitter present. pt in no apparent distress. respirations even and unlabored. call ellsworth placed within reach.
[2023-07-29 14:11] LABS: Lactic Acid 0.9 mmol/L (0.5-2.0)
--- NOTE | 2023-07-29 14:34 | PC.NURSE ---
behavioral health specialist bedside w/ pt. states that she is not able to speak w/ him until he is medically cleared. pt still not medically cleared at this moment. messaged transport to request inpatient bed d/t pt being in pain from lack of mobility. 1:1 sitter present. pt resting comfortably with the lights dimmed. call ellsworth placed within reach.
--- NOTE | 2023-07-29 14:47 | MHC.CARE ---
Pt is not currently medically cleared to be seen, getting IV fluids for rhabdomyolysis. Hospitalists consult ordered.
--- NOTE | 2023-07-29 15:20 | PC.NURSE ---
patient's belongings brought to decon by tech.
[2023-07-29] MEDS: Morphine Sulfate 4 MG/ML CARTRIDGE IVPUSH (15:37)
--- NOTE | 2023-07-29 15:39 | PC.NURSE ---
pt increasingly agitated and tearful d/t pain increase. provider aware. medication administered per provider order. will reassess pain shortly. 1:1 sitter present.
--- NOTE | 2023-07-29 16:38 | PC.NURSE ---
pt currently sleeping at this time so pain level will be reassess post medication administration once pt wakes up. pt resting comfortably in no apparent distress at this time. respirations even and unlabored. 1:1 sitter present. call ellsworth placed within reach.
[2023-07-29 16:54] LABS: Troponin-I High Sensitivity < 2.7 ng/L (<3.5-35.0)
--- NOTE | 2023-07-29 18:54 | PC.NURSE ---
vss and up to date. pt verbalizing no change in pain at this time. pt medicated per provider order. resting comfortably in no apparent distress with the lights dimmed. respirations even and unlabored. 1:1 sitter present. call ellsworth placed within reach.
[2023-07-30] VITALS (7 sets, daily range): BP systolic 132–142; BP diastolic 74–99; PULSE 65–79; RESP 16–18; TEMP 37.1–38.1; O2SAT 96–98
[2023-07-30] MEDS: Ibuprofen 600 MG TABLET PO ×2 (01:19→14:34)
[2023-07-30] MEDS: LORazepam 1 MG TABLET 2 MG PO ×3 (01:19→19:17)
--- NOTE | 2023-07-30 06:35 | PC.NURSE ---
Patient slept through the night, no distress observed/reported, asymptomatic of ETOH withdrawal at this time but has history of withdrawal seizure, Ativan 2 mg PO and ibuprofen 600 mg po administered at 0119 with + effect, disposition per care team is BIJU follow up, VSS, will continue to monitor.
--- NOTE | 2023-07-30 09:17 | MHC.CARE ---
T/w met with patient this morning to determine risk/ safety concerns. Patient was awakened, eyes remained closed. He reports that he wants detox, and when asked if he has any plan/ intention to try to kill himself, and he states no, not if I get the help I need. He has been in the ED numerous times and has no documented hx of suicide attempts, with his stays primarily related to discomfort from withdrawal / detox. He denies HI, denies AH/ VH and does not appear to be responding to internal stimuli. He is voluntary for detox LOC.
--- NOTE | 2023-07-30 09:25 | MHC.RECOVRN ---
Addendum entered by Milind Amador 07/30/23 14:47: Pt accepted to [facility] for 10pm admission. Lyft ordered for 7:30pm for transportation. Original Note: This abstract writer met with patient after patient cleared by Care Team. Pt was laying in bed, on side. Pt reports sweats, chills, bodyaches, visibly diaphoretic.Pt reports daily polysubstance use ETOH daily 6-7 beers, 2 bundles heroin IV, occasional use EKATERINA. Pt seeking detox, reviewed bedsearch process with patient. Pt verbalized understanding. This abstract writer reviewed findings with ED Provider, MTD ordered to treat opiate withdrawal. Provider and ED RN aware of plan. This abstract writer sending ATS referrals.
[2023-07-30] MEDS: methADONE HCl 10 MG TABLET PO (09:37)
--- NOTE | 2023-07-30 09:40 | PC.NURSE ---
Patient oob ambulating to bathroom, gait steady. Patient reports mild headache with nausea, visibly tremulous. Medicated with methadone per jan.
--- NOTE | 2023-07-30 10:25 | PC.NURSE ---
Patient re checked after methadone administration, patient remains tremulous, reports nausea and headache. Patient requesting ativan, given per jan.
[2023-07-30] MEDS: methADONE HCl 10 MG TABLET 15 MG PO (11:20)
[2023-07-30] MEDS: cloNIDine HCL 0.1 MG TABLET PO (11:20)
[2023-07-30] MEDS: hydrOXYzine HCL 25 MG TABLET PO (11:20)
--- NOTE | 2023-07-30 11:23 | PC.NURSE ---
Crystalizer Operator notified of tremors, patient reporting still having withdrawal symptoms. New orders obtained from MD, given per mar
--- NOTE | 2023-07-30 12:37 | PC.NURSE ---
Patient oob ambulating to bathroom , gait remains steady. Less tremulous, fluids provided at patients request.
--- NOTE | 2023-07-30 13:08 | PC.NURSE ---
Patient speaking with N intake for possible detox placement
--- NOTE | 2023-07-30 14:35 | PC.NURSE ---
temp 100.4, provider aware, order to give ibuprofen
--- NOTE | 2023-07-30 15:11 | PC.NURSE ---
oob ambulating in room, gait steady, reports all over body aches, improving with ibuprofen
[2023-07-30] MEDS: Acetaminophen 325 MG TABLET 975 MG PO (16:04)
--- NOTE | 2023-07-30 16:05 | PC.NURSE ---
temp 100.3, provider notified, new orders obtained
--- NOTE | 2023-07-30 16:59 | PC.NURSE ---
temp 99.9, patient resting comfortably, breathing even and unlabored.
--- NOTE | 2023-07-30 18:08 | PC.NURSE ---
Alert and oriented, reports body aches have improved. Taking fluids well.
== END 2023-07-30 19:26 | disposition home or self-care (01) ==
PROVIDERS: Physician Assistant Medical; Emergency Provider Emergency Medicine Emergency Medical Services
DX: M79.10 Myalgia, unspecified site (principal); F11.19 Opioid abuse with unspecified opioid-induced disorder; F14.19 Cocaine abuse with unspecified cocaine-induced disorder; R07.89 Other chest pain; M54.50 Low back pain, unspecified; R10.11 Right upper quadrant pain; Z20.822 Contact with and (suspected) exposure to COVID-19; Z20.828 Contact with and (suspected) exposure to other viral communicable diseases; Z79.899 Other long term (current) drug therapy; F17.210 Nicotine dependence, cigarettes, uncomplicated; Z71.6 Tobacco abuse counseling; Z71.51 Drug abuse counseling and surveillance of drug abuser
CPT/HCPCS: 0241U; 36415; 71046; 71275; 74177; 80048; 80076; 80307; 81003; 82550; 83605; 83690; 83735; 84484; 85025; 85610; 85730; 87040; 93005; 96361; 96374; 96375; 99285; J1885; J2270; Q9967; S9485

== ENCOUNTER 2023-08-17 10:07 | Inpatient (IN) | payer MEDICAID, SELFPAY ==
--- NOTE | ~2023-08-17 | CT_ITS ---
EXAMINATION: CT FOREARM WITH CONTRAST, RIGHT CLINICAL INFORMATION: Skin and soft tissue infection. COMPARISON: None available. TECHNIQUE: CT scan of the right forearm is performed with intra-articular contrast. Contrast dose 85 cc of Omnipaque 350 given intravenously. Reconstruction imaging performed at the acquisition workstation. This CT examination was performed using dose optimization techniques as appropriate, variously including the following: *Automated exposure control *Adjustment of mA and/or kV according to patient size (this includes techniques or standardized protocols for targeted exams where dose is matched to indication/reason for exam; i.e. extremities or head) *Use of iterative reconstruction technique DLP: 158 mGy-cm FINDINGS: Surgical clips are present in the volar proximal forearm just distal to the elbow joint. There is an area of slightly increased density fluid along the anteromedial aspect of the proximal forearm just distal to level of the surgical clips. This could reflect hematoma and/or seroma. This area measures 5.9 cm transverse, 1.6 cm AP, and 4.8 cm craniocaudal. There is circumferential generalized abnormal fluid like density noted throughout the forearm and extending into the proximal hand compatible with edema and perhaps scattered areas of cellulitis and/or fasciitis but without definitive enhancement. Muscles/tendons: Normal. Bone/joints: Unremarkable. Neurovascular structures: Unremarkable. CT/CT forearm RT w IV con IMPRESSION: 1. Post surgical changes in the proximal forearm. 2. Possible hematoma and/or seroma or possibly evolving into abscess along the subcutaneous soft tissues of the anteromedial aspect of the proximal forearm just distal to the level of the surgical clips. 3. Generalized abnormal fluid like density noted throughout the forearm and extending into the proximal hand compatible edema and perhaps scattered areas of cellulitis and/or fasciitis. No definite soft tissue enhancement.
[2023-08-17 10:24] VITALS: BP 117/72; BP 124/82; PULSE 72; RESP 18; TEMP 36.8; O2SAT 97; O2SAT 98; BMI 23.9
--- NOTE | 2023-08-17 10:27 | PC.NURSE ---
Patient alert and oriented, nodding off, states last drink of etoh was drug use was last night. Patiet repots 10/10 right arm pain that started 2 days ago. Right arm swollen, tender to touch, warm, with large abscess. Able to move fingers. 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 Reports drainage from site.
--- NOTE | 2023-08-17 10:30 | PC.NURSE ---
Patient with no s/s of etoh withdrawl at this time. Changed into hospital attire, belongings locked in decon by security
[2023-08-17 11:29] LABS: MANUAL DIFF FLAG NO
[2023-08-17] MEDS: ceFAZolin Sodium/Dextrose,Iso 2 GM/50 ML PIGGYBACK IV (11:36)
[2023-08-17 11:42] LABS: Basophils Absolute Auto 0.1 X10*3/uL (0.0-0.2); Basophils Percent Auto 0.6 % (0-2); Eosinophils Absolute Auto 0.2 X10*3/uL (0.0-0.4); Eosinophils Percent Auto 2.1 % (0-4); Hematocrit 29.6 % (42.0-52.0); Hemoglobin 9.1 g/dl (14.0-18.0); Imm Gran Abs Auto 0.03 X10*3/uL (0.00-0.03); Imm Gran Pct Auto 0.4 % (0.0-0.4); Lymphocytes Absolute Auto 1.5 X10*3/uL (1.2-4.9); Lymphocytes Percent Auto 17.9 % (20-40); Mean Corpuscular HGB Conc 30.7 g/dl (31.0-36.0); Mean Corpuscular Hemoglobin 20.6 pg (27.0-33.0); Monocytes Percent Auto 12.3 % (2-11); Neutrophils Absolute Auto 5.5 x10*3/uL (2.0-8.3); Neutrophils Percent Auto 66.7 % (45-73); Platelet Count 398 X10*3/uL (160-400); Red Blood Count 4.42 X10*6/uL (4.60-5.80); Red Cell Distribution Width 15.1 % (11.0-16.0); White Blood Count 8.2 X10*3/uL (4.8-10.8)
[2023-08-17 11:45] LABS: Anion Gap 15 (12-20); Blood Urea Nitrogen 6 mg/dL (9-16); Calcium 8.9 mg/dL (8.4-10.2); Carbon Dioxide 26 mmol/L (22-29); Chloride 100 mmol/L (96-108); Estimated Glomerular Filt Rate > 60; Glucose Random 97 mg/dL (60-115); Potassium 3.9 mmol/L (3.3-5.1); Sodium 137 mmol/L (135-145)
[2023-08-17] MEDS: iohexoL 350 MG/ML 100 ML INFUS..BTL IV (12:19)
[2023-08-17] MEDS: vancomycin/NS 2,000 MG/500 ML PLAST..BAG 250 MG IV (12:24)
--- NOTE | 2023-08-17 12:38 | PC.NURSE ---
Alert and oriented. IV abt running per order. CT scan obtained, resting quietly in bed breathing even and unlabored
--- NOTE | 2023-08-17 14:37 | ED_ITS ---
HPI - Wound/Laceration General Chief Complaint: Wound/Laceration Stated Complaint: R ARM INFECTION/?ETOH WITHDRAWALS Time Seen by Provider: 08/17/23 10:41 Source: patient Mode of arrival: ambulatory Limitations: no limitations History of Present Illness HPI narrative: Patient is an active IV drug abuse shooting cocaine with presents with a 3 day history of arm swelling and erythema after shooting into his arm Onset (ago): day(s) Extremity Location: right: arm Related Data Home Medications Medication Instructions Recorded Confirmed nicotine (polacrilex) 2 mg gum 1 gum PO Q2H PRN nicotine cravings 06/20/22 07/29/23 nicotine 21 mg/24 hr daily 1 patch transdermal DAILY 06/20/22 07/29/23 transdermal patch Allergies Allergy/AdvReac Type Severity Reaction Status Date / Time fish derived [FISH] Allergy Unknown UNKNOWN - Verified 03/01/23 11:41 NOT ANAPHYLAXIS PER PATIENT trazodone AdvReac Severe priapr Verified 05/18/22 05:35 Review of Systems 2 Review of Systems: Yes all other systems are reviewed and are negative Neurologic: Denies Sensory deficit (Neuro) PMFSH Past Medical History Medical History Recurrent major depression-severe PTSD (post-traumatic stress disorder) PTSD (post-traumatic stress disorder) Hep C w/o coma, chronic Surgical History History of surgery on arm Social History Social History Household Members: Other Housing: Homeless Do you presently have visiting nurse or other home services: No Alcohol intake: current Alcohol intake frequency: 3 or more drinks per day Alcohol type: beer and hard liquor Patient Tobacco Use Status: Current everyday Tobacco user Tobacco use type: Cigarette Cigarette Packs Per Day: 1 Cigarettes Per Day: 20.0 Years Smoked: 25 Smoked in Last 30 Days: Yes e-Cigarette/Vaping Use: Never Used Second Hand Smoke Exposure: Yes Use of substances other than those prescribed or required for medical reasons: Yes Substance Use Type: Crack/Cocaine Advance Directives: No Advance Directives Information Provided: Yes service: Yes ([employer]) Sexual orientation: Straight/Heterosexual Physical Exam 2 Vital Signs: Vital Signs: Last Vital Signs Temp 98.3 F 08/17/23 10:24 Pulse 72 08/17/23 10:24 Resp 18 08/17/23 10:24 BP 117/72 08/17/23 10:24 Pulse Ox 97 08/17/23 10:24 O2 Del Method Room Air 08/17/23 10:24 BMI result Body Mass Index 23.9 Const: Other: male looking older than stated age, unkept Orientation/consciousness: oriented to person and patient oriented x3 L imitations: no limitations HEENT: Head: Yes normal to inspection Ears: external ears normal General nose exam: Normal external nose present Mouth: Normal oral and palatal mucosa present and oropharynx normal Throat: Yes posterior oropharynx normal Eyes: General: appearance normal, both eyes and all related structures Neck: Other: supple Neck: Yes normal visual inspection Chest: Chest palpation & inspection: normal inspection of the chest Resp: Auscultation: clear to auscultation bilaterally Cardio: Jugular venous distension: no JVD Rate: regular rate Rhythm: r egular rhythm Heart sounds: S1 normal heart sound present and S2 normal heart sound present GI: Inspection: Yes normal to inspection Palpation (GI): Soft to palpation, nontender and No hepatosplenomegaly present Auscultation: normal bowel sounds : General: Yes no CVA tenderness Back/Spine/Pelvis: Back: no CVA tenderness Skin: Other: right arm with swelling and erythema Neuro: General: oriented to person and patient oriented x3 Cranial nerves: Yes CN's II-XII intact bilaterally Motor exam (neuro): 5/5 motor strength present throughout Sensory Exam: No Sensory deficit (Neuro) Extrem: General: Yes normal to inspection Psych: Appearance: grossly normal Course Reevaluation(s) Reevaluation #1: Discussed with Dr. Guzman will admit to medicine Time: 14:42 Medications Administered Discontinued Medications Generic Name Dose Route Start Last Admin Trade Name Freq PRN Reason Stop Dose Admin Cefazolin Sodium/Dextrose 2 gm in 50 mls @ 100 mls/hr 08/17/23 11:11 08/17/23 12:10 Ancef IV 08/17/23 11:40 Infused ONCE ONE Infusion Vancomycin HCl 2,000 mg in 500 mls @ 250 mls/hr 08/17/23 11:15 08/17/23 12:24 Vancomycin/Ns IV 08/17/23 13:14 250 mls/hr ONCE ONE Administration Iohexol 100 ml 08/17/23 12:18 08/17/23 12:19 Iohexol 350 Mg/Ml 100 Ml Infus..Btl IV 08/17/23 12:19 85 ml ONCE ONE Administration Medical Decision Making Differential Diagnosis Differential Diagnoses: The differential diagnosis associated with the presentation includes (abscess, cellulitis, foreign body) Admission/Observation Consideration of admission/observation: Escalation of care including admission/observation considered (upon arrival patient considered for admission) Lab Data 08/17/23 11:25 08/17/23 11:25 Labs: Lab Results 08/17/23 Range/Units 11:25 WBC 8.2 (4.8-10.8) X10*3/uL RBC 4.42 L (4.60-5.80) X10*6/uL Hgb 9.1 L (14.0-18.0) g/dl Hct 29.6 L (42.0-52.0) % MCV 67.0 L (80.0-98.0) fL MCH 20.6 L (27.0-33.0) pg MCHC 30.7 L (31.0-36.0) g/dl RDW 15.1 (11.0-16.0) % Plt Count 398 D (160-400) X10*3/uL MPV 10.0 (9.4-12.4) fL Immature Gran % (Auto) 0.4 (0.0-0.4) % Neut % (Auto) 66.7 (45-73) % Lymph % (Auto) 17.9 L (20-40) % Aiken % (Auto) 12.3 H (2-11) % Eos % (Auto) 2.1 (0-4) % Baso % (Auto) 0.6 (0-2) % Lymph # (Auto) 1.5 (1.2-4.9) X10*3/uL Aiken # (Auto) 1.0 (0.1-1.2) X10*3/uL Eos # (Auto) 0.2 (0.0-0.4) X10*3/uL Baso # (Auto) 0.1 (0.0-0.2) X10*3/uL Abs Immat Gran (auto) 0.03 (0.00-0.03) X10*3/uL Absolute Neuts (auto) 5.5 (2.0-8.3) x10*3/uL Absolute Nucleated RBC 0.000 (0.0-0.012) X10*3/uL Nucleated RBC % (auto) 0.0 (0.0-0.2) /100WBC Sodium 137 (135-145) mmol/L Potassium 3.9 (3.3-5.1) mmol/L Chloride 100 (96-108) mmol/L Carbon Dioxide 26 (22-29) mmol/L Anion Gap 15 (12-20) BUN 6 L (9-16) mg/dL Creatinine 0.69 (0.5-1.4) mg/dL Estim Creat Clear Calc 141.0 Estimated GFR > 60 Random Glucose 97 (60-115) mg/dL Calcium 8.9 (8.4-10.2) mg/dL Independent Interpretation I performed an independent interpretation of an: CT Scan (edema and question of FB) Radiology Impression Discussion of test interpretation with radiology: I have reviewed the radiologist's reading. (old surgical clips question of developing abscess, I agree) Chronic Conditions Patient?s care impacted by: Other (active IVDU) Social Determinants Patient?s care significantly limited by Social Determinants of Health including: Low income and Alcoholism and drug addiction in family Discharge Plan Discharge Clinical Impression: Abscess, IVDU (intravenous drug user) Cellulitis Qualifiers: Site of cellulitis: extremity Site of cellulitis of extremity: upper extremity Laterality: right Qualified Code(s): L03.113 - Cellulitis of right upper limb Patient Disposition: Admitted As Inpatient Prescriptions: No Action nicotine (polacrilex) 2 mg gum 1 gum PO Q2H PRN (Reason: nicotine cravings) nicotine 21 mg/24 hr patch 24 hour 1 patch transdermal DAILY
--- NOTE | 2023-08-17 15:08 | P.CONGS_ITS ---
History of Present Illness Consult details Consult date: 08/17/23 Requesting physician: Chang Denton Narrative: 43-year-old male patient with history of IV drug use and alcohol use presenting with complaints of pain and swelling of the right arm. This initially began after injecting into his right arm. He has a previous history of right arm injury and previously underwent surgery at this location. Current episode began between 3-5 days ago and he now reports from the hand up to the armpit. He denies any bleeding or discharge. Workup in the emergency department revealed that he was afebrile with normal blood pressure and pulse. WBC was 8.2 and hemoglobin 9.2. A CT of the right arm does indicate a fluid density possibly due to hematoma or seroma with subcutaneous edema possibly related to an evolving abscess. He is admitted to the hospitalist service for IV antibiotics. Review of Systems 2 Review of Systems: Yes Unobtainable due to mental condition PMFSH Past Medical History Medical History Recurrent major depression-severe PTSD (post-traumatic stress disorder) PTSD (post-traumatic stress disorder) Hep C w/o coma, chronic Surgical History Surgical History History of surgery on arm Social History Social History Household Members: Other Housing: Homeless Do you presently have visiting nurse or other home services: No Alcohol intake: current Alcohol intake frequency: 3 or more drinks per day Alcohol type: beer and hard liquor Patient Tobacco Use Status: Current everyday Tobacco user Tobacco use type: Cigarette Cigarette Packs Per Day: 1 Cigarettes Per Day: 20.0 Years Smoked: 25 Smoked in Last 30 Days: Yes e-Cigarette/Vaping Use: Never Used Second Hand Smoke Exposure: Yes Use of substances other than those prescribed or required for medical reasons: Yes Substance Use Type: Crack/Cocaine Advance Directives: No Advance Directives Information Provided: Yes service: Yes ([employer]) Sexual orientation: Straight/Heterosexual Meds Allergies Allergy/AdvReac Type Severity Reaction Status Date / Time fish derived [FISH] Allergy Unknown UNKNOWN - Verified 03/01/23 11:41 NOT ANAPHYLAXIS PER PATIENT trazodone AdvReac Severe priapr Verified 05/18/22 05:35 Home Medications Medication Instructions Recorded Confirmed Last Taken Type nicotine (polacrilex) 2 mg gum 1 gum PO Q2H PRN nicotine cravings 06/20/22 07/29/23 Unknown History nicotine 21 mg/24 hr daily 1 patch transdermal DAILY 06/20/22 07/29/23 Unknown History transdermal patch Physical Exam 2 Vital Signs: Vital Signs: Last Vital Signs Temp 98.3 F 08/17/23 10:24 Pulse 72 08/17/23 10:24 Resp 18 08/17/23 10:24 BP 117/72 08/17/23 10:24 Pulse Ox 97 08/17/23 10:24 O2 Del Method Room Air 08/17/23 10:24 BMI result Body Mass Index 23.9 Const: General: lethargic, poor hygiene and tired appearing Nutritional Appearance: thin Orientation/consciousness: lethargic HEENT: Head: Yes normocephalic Resp: Effort & Inspection: normal respiratory effort, no audible wheezes, no cough and no respiratory distress GI: Inspection: Yes normal to inspection Palpation (GI): nontender Skin: Other: Warm and dry, brisk capillary refill Extrem: Other: Right arm: Extensive scarring noted in the antecubital fossa with a black ulceration noted within the scar tissue. Multiple track lee noted throughout the right arm. Diffuse swelling and tenderness at both the upper and lower arm with no particular fluctuant area appreciated. Evidence of cellulitis throughout the arm surrounding injection sites. Results Labs 08/17/23 11:25 08/17/23 11:25 Labs: Abnormal lab results 08/17/23 Range/Units 11:25 RBC 4.42 L (4.60-5.80) X10*6/uL Hgb 9.1 L (14.0-18.0) g/dl Hct 29.6 L (42.0-52.0) % MCV 67.0 L (80.0-98.0) fL MCH 20.6 L (27.0-33.0) pg MCHC 30.7 L (31.0-36.0) g/dl Lymph % (Auto) 17.9 L (20-40) % [place] % (Auto) 12.3 H (2-11) % BUN 6 L (9-16) mg/dL Short CBC 08/17/23 Range/Units 11:25 WBC 8.2 (4.8-10.8) X10*3/uL Hgb 9.1 L (14.0-18.0) g/dl Hct 29.6 L (42.0-52.0) % Plt Count 398 D (160-400) X10*3/uL [facility] 08/17/23 11:25 Sodium 137 Potassium 3.9 Chloride 100 Carbon Dioxide 26 BUN 6 L Creatinine 0.69 Calcium 8.9 All other labs normal. Assessment and Plan (1) IVDU (intravenous drug user): Status: Acute (2) Cellulitis: Qualifiers: Laterality: right Site of cellulitis: extremity Site of cellulitis of extremity: upper extremity Qualified Code(s): L03.113 - Cellulitis of right upper limb Status: Acute (3) Abscess: Status: Acute Plan 43-year-old male patient with history of IV drug use now presenting with cellulitis of the right arm and possible hematoma/seroma/abscess of the right forearm by CT. Examination is is difficult but no definite abscess could be appreciated. Recommend arm elevation on pillows, IV antibiotics. Suggest consultation with hand surgeon as well. Will monitor patient's progress. Time Spent With Patient Time: Total time managing care of this patient today ____ minutes. Procedures Date of Service Date of Service: 08/17/23
--- NOTE | 2023-08-17 15:43 | PM.IMHP ---
History of Present Illness Date of Service: 08/17/23 Attending physician on admission: Miguelito Uribe Chief Complaint: Right arm pain, redness, and swelling Pt is a 43-year-old male with a PMH significant for?IVDU who presents to the ED with?2-3 days of right hand and arm pain, swelling, and redness. Pt has a long history of IVDU primarily injects cocaine in his upper extremities and hands. Patient began noticing symptoms between 2 and 3 days ago, states he has also had fever, chills, fatigue, and right shoulder and back pain. Pt is somnolent but arousable, constantly drifting in and out of sleep. However, patient is overall rather unhelpful at providing history or answering follow-up questions in any detail. Does state he believes he is going through alcohol withdrawal. Reports drinking over half a gal of vodka each day, with last drink yesterday. Also reports a history of withdrawal seizures. Denies auditory or visual hallucinations. No nausea, vomiting diarrhea, abdominal pain. In the ED patient was afebrile and normotensive. Labs were significant for stable H&H 9.1/29.6 (around baseline), otherwise grossly unremarkable. No leukocytosis. Electrolytes WNL. Renal function baseline. CT?of right forearm showed possible hematoma and/or seroma possibly evolving into abscess. Also found generalized abnormal fluid like density throughout the forearm and extended the proximal hand compatible with edema and perhaps scattered areas of cellulitis and or fasciitis. EKG pending. Pt was treated with vancomycin and cefazolin. Pt will be admitted to the hospital for treatment further evaluation of alcohol withdrawal and right upper extremity cellulitis with question of hematoma/seroma/abscess. Review of Systems Review of Systems: Right hand swelling, pain, erythema Fever, chills Right shoulder pain Back pain Denies nausea, vomiting, diarrhea, abdominal pain No shortness of breath PMFSH Medical History Recurrent major depression-severe PTSD (post-traumatic stress disorder) PTSD (post-traumatic stress disorder) Hep C w/o coma, chronic Surgical History History of surgery on arm Social History Household Members: Other Housing: Homeless Do you presently have visiting nurse or other home services: No Alcohol intake: current Alcohol intake frequency: 3 or more drinks per day Alcohol type: beer and hard liquor Patient Tobacco Use Status: Current everyday Tobacco user Tobacco use type: Cigarette Cigarette Packs Per Day: 1 Cigarettes Per Day: 20.0 Years Smoked: 25 Smoked in Last 30 Days: Yes e-Cigarette/Vaping Use: Never Used Second Hand Smoke Exposure: Yes Use of substances other than those prescribed or required for medical reasons: Yes Substance Use Type: Crack/Cocaine Advance Directives: No Advance Directives Information Provided: Yes service: Yes ([employer]) Sexual orientation: Straight/Heterosexual Meds Allergies Allergy/AdvReac Type Severity Reaction Status Date / Time fish derived [FISH] Allergy Unknown UNKNOWN - Verified 03/01/23 11:41 NOT ANAPHYLAXIS PER PATIENT trazodone AdvReac Severe priapr Verified 05/18/22 05:35 Home Medications Medication Instructions Recorded Confirmed Last Taken Type methadone 10 mg/mL oral 110 mg PO DAILY 08/17/23 08/17/23 History concentrate (Methadone Intensol) Physical Exam Vital Signs and Narrative: Vital Signs: Last Vital Signs Temp 98.3 F 08/17/23 10:24 Pulse 72 08/17/23 10:24 Resp 18 08/17/23 10:24 BP 117/72 08/17/23 10:24 Pulse Ox 97 08/17/23 10:24 O2 Del Method Room Air 08/17/23 10:24 BMI result Body Mass Index 23.9 Constitutional: Alert, somnolent but arousable, drifting in and out of sleep. Answers questions appropriately but in little detail. In no acute distress. Mental Status: Oriented to person, place and time. Eyes: Pupils are equal, round, and reactive to light. Ear, Nose, and Throat: Oropharynx clear, mucous membranes moist. Ears and nose without deformities. Trachea midline. Respiratory: Clear to auscultation bilaterally. No wheezing, rales, or rhonchi. Cardiovascular: S1, S2 regular. 2/6 murmur best heard along left sternal border. Gastrointestinal: Abdomen soft, non-tender, non-distended. Normal bowel sounds. Neurologic: Cranial nerves II-XII are grossly intact bilaterally. No focal neurological deficits. Moves all extremities spontaneously. Minor upper extremity tremor noted in left hand. Musculoskeletal: Right shoulder tender to palpation. Right shoulder ROM limited secondary to pain. Extremities: Right upper extremity with significant swelling and erythema. Multiple track lee on right upper extremity. Warm, tender to touch. No clear areas of induration or fluctuance noted. See pictures below Psychiatric: Somnolent but arousable. Mostly cooperative. Results Labs 08/17/23 11:25 08/17/23 11:25 Labs: Laboratory Results - last 24 hr 08/17/23 11:25 MCV 67.0 L MCH 20.6 L MCHC 30.7 L RDW 15.1 Plt Count 398 D MPV 10.0 Immature Gran % (Auto) 0.4 Neut % (Auto) 66.7 Lymph % (Auto) 17.9 L [place] % (Auto) 12.3 H Eos % (Auto) 2.1 Baso % (Auto) 0.6 Lymph # (Auto) 1.5 [place] # (Auto) 1.0 Eos # (Auto) 0.2 Baso # (Auto) 0.1 Abs Immat Gran (auto) 0.03 Absolute Neuts (auto) 5.5 Absolute Nucleated RBC 0.000 Nucleated RBC % (auto) 0.0 Anion Gap 15 Estim Creat Clear Calc 141.0 Estimated GFR > 60 Random Glucose 97 Calcium 8.9 Imaging Radiologist's Impressions: Impressions Forearm CT 08/17/23 12:28 IMPRESSION: 1. Post surgical changes in the proximal forearm. 2. Possible hematoma and/or seroma or possibly evolving into abscess along the subcutaneous soft tissues of the anteromedial aspect of the proximal forearm just distal to the level of the surgical clips. 3. Generalized abnormal fluid like density noted throughout the forearm and extending into the proximal hand compatible edema and perhaps scattered areas of cellulitis and/or fasciitis. No definite soft tissue enhancement. Assessment and Plan (1) IVDU (intravenous drug user): Status: Acute (2) Cellulitis: Qualifiers: Laterality: right Site of cellulitis: extremity Site of cellulitis of extremity: upper extremity Qualified Code(s): L03.113 - Cellulitis of right upper limb Status: Acute (3) Alcohol withdrawal syndrome: Status: Inactive Plan Pt is a 43-year-old male with a PMH significant for?IVDU who presents to the ED with?2-3 days of right hand and arm pain, swelling, and redness. Pt has a long history of IVDU primarily injects cocaine in his upper extremities and hands. Pt will be admitted to the hospital for treatment further evaluation of alcohol withdrawal and right upper extremity cellulitis with question of hematoma/seroma/abscess. Right upper extremity cellulitis in the setting of IVDU Patient with right upper extremity swelling, pain, erythema times 2-3 days PE with obvious cellulitis surrounding multiple track lee, extremity is warm, painful to touch CT with possible evidence of hematoma/seroma/abscess Will treat with IV antibiotics, vancomycin, started 08/17/2023 Elevate arm on pillows General surgery consult Hand surgery consult Follow cultures Acute alcohol withdrawal Patient reports drinking 1/2 gal vodka daily with last drink yesterday Reports history of alcohol withdrawal with alcohol withdrawal seizures Will start patient on phenobarb protocol Daily multivitamin, folic acid, thiamine, famotidine Follow lytes, Mag, BMP IVF: Lactated Ringer's CIWA scale Seizure protocols Addiction Medicine consult Monitor on telemetry Full Code Attending:?Dr. Uribe DVT Prophylaxis: Lovenox Pt will require a hospitalization of at least two nights for treatment of?acute alcohol withdrawal and upper right extremity cellulitis in setting of IVDU with possible hematoma/seroma/abscess. Patient be treated with phenobarb protocol, IV antibiotics, close monitoring, and specialist consultation. Time Spent With Patient Time: Total time managing care of this patient today ____ minutes. Quality Stroke Does the patient have a stroke diagnosis?: No VTE Prior VTE?: No VTE Risk Level:: Medical - moderate - high VTE Device Contraindication: Treatment Not Indicated VTE Drug Contraindication: N/A - Med Ordered
--- NOTE | 2023-08-17 15:44 | PHA.MEDREC ---
Pharmacy Consult ? Medication Reconciliation Pharmacy has completed the medication reconciliation. Patient self reports methadone at [facility] on [address] 110 mg, will need to call for verification.
--- NOTE | 2023-08-17 17:05 | PHA.PROG ---
Admission Date/Time: Indication: Cellulitis, IVDU Weight in k.5 kg Adjusted body weight in K kg [place] body weight in K kg Obesity Dosing Indication % IBW:103% Serum Creatinine - Last 168 Hours 08/17/23 11:25 Creatinine 0.69 Estimated CrCl and GFR - Last 168 Hours 08/17/23 11:25 Estim Creat Clear Calc 141.0 Estimated GFR > 60 Vancomycin Loading Dose: 2000 mg Current Vancomycin Dosing Regimen: 1500 mg Q12H Date and Time for next Vancomycin Level to be drawn: 08/18 @ 1100 Pharmacist Comments on Vancomycin Plan: Patient received an adequate load dose on 08/17 @ 1224 Maintenance dose vancomycin 1500 mg Q12H is scheduled to start 08/18 @ 0100. Predicted AUC 568 with a trough of 16.2 Level is be drawn prior to 3rd dose to access for safety and efficacy Pharmacy to monitor renal function daily Tesha Underwood PharmD Vancomycin dosing will take advantage of [employer] as a clinical decision support tool that uses Bayesian modeling to calculate individual patient's pharmacokinetic parameters and forecast the patient's drug concentration time course with the target goal AUC 24 range of 400 - 600 mg/L/hr.
[2023-08-17 17:07] VITALS: BP 128/74
[2023-08-17] MEDS: Multivitamin TABLET 1 TAB PO (17:08)
[2023-08-17] MEDS: Folic Acid 1 MG TABLET PO (17:08)
[2023-08-17] MEDS: Thiamine HCL 100 MG TABLET PO (17:08)
[2023-08-17] MEDS: PHENobarbitaL sodium 130 MG/ML IM ONCE 234 MG IM (17:09)
[2023-08-17] MEDS: Enoxaparin Sodium 40 MG/0.4 ML SYRINGE SUBCUT (17:09)
[2023-08-17 17:14] VITALS: PULSE 55; RESP 18; O2SAT 97
[2023-08-17 17:31] LABS: Magnesium 2.1 mg/dL (1.6-2.6)
[2023-08-17] MEDS: Lactated Ringers 1,000 ML 100 ML IVCONT (17:52)
--- NOTE | 2023-08-17 17:52 | MHC.RECOVRN ---
This loan underwriter met with patient after receiving addiction consult. Pt admitted Cellulitis, ETOH withdrawal. Pt was sleeping, pt did not open eyes to verbal command. This loan underwriter reviewed with Nisha ED RN, pt has been receiving phenobarb, pt reported pain while this loan underwriter present. Pt declined to answer questions. Ed HURTADO RN reports pt has stable on pheno protocol, reviewed with Nisha, this loan underwriter contacted recreation therapy aide N administration to confirm MTD dose, waiting on verification. COWS 2, for pain.
[2023-08-17 19:30] VITALS: BP 114/67; PULSE 79; RESP 18; TEMP 36.8; O2SAT 98
--- NOTE | 2023-08-17 19:32 | MHC.EDTECH ---
This tech assumed care of patient at 1900, hourly rounds and vitals completed.This tech completed belongings list, prior shift placed belongings in [facility]. Patient urinated 500cc in urinal, pudding giving per request. Patient has a bed at this time awaiting nurse to nurse report.
--- NOTE | 2023-08-17 19:34 | PC.NURSE ---
This RN attempted to call report. RN on IM not available.
[2023-08-17 21:59] VITALS: BP 129/67; PULSE 61; RESP 18; TEMP 37; O2SAT 98
[2023-08-17] MEDS: Famotidine 20 MG TABLET PO (22:12)
[2023-08-17] MEDS: 0.9 % Sodium Chloride Flush 3 ML SYRINGE IVFLUSH (22:13)
[2023-08-17 22:15] VITALS: BMI 25.8
[2023-08-17] MEDS: PHENobarbitaL sodium 130 MG/ML VIAL IM Q3Hx2 175 MG IM (22:50)
[2023-08-17 23:26] VITALS: BP 127/74; PULSE 56; RESP 18; TEMP 37.1; O2SAT 96
[2023-08-18] MEDS: vancomycin HCL 1,500 MG in 0.9 % Sodium Chloride 500 ML 333.33 MG IV (00:37)
[2023-08-18] MEDS: PHENobarbitaL sodium 130 MG/ML VIAL IM Q3Hx2 175 MG IM (02:19)
[2023-08-18] MEDS: Lactated Ringers 1,000 ML 100 ML IVCONT ×3 (02:20→21:39)
[2023-08-18 03:03] VITALS: BP 122/74; PULSE 59; RESP 18; TEMP 37.2; O2SAT 96
--- NOTE | 2023-08-18 05:00 | ECG_ITS ---
Test Reason : BASELINE EKG Blood Pressure : / mmHG Vent. Rate : 068 BPM Atrial Rate : 068 BPM P-R Int : 142 ms QRS Dur : 092 ms QT Int : 446 ms P-R-T Axes : 062 057 017 degrees QTc Int : 474 ms Normal sinus rhythm Normal ECG When compared with ECG of 29-JUL-2023 06:51, No significant change was found Referred By: Gissell Oshea Electronically Signed By:ZAC LANE
[2023-08-18 07:05] LABS: Hematocrit 31.2 % (42.0-52.0); Hemoglobin 9.7 g/dl (14.0-18.0); Mean Corpuscular HGB Conc 31.1 g/dl (31.0-36.0); Mean Corpuscular Hemoglobin 20.6 pg (27.0-33.0); Mean Corpuscular Volume 66.2 fL (80.0-98.0); Mean Platelet Volume 10.3 fL (9.4-12.4); Platelet Count 379 X10*3/uL (160-400); Red Blood Count 4.71 X10*6/uL (4.60-5.80); Red Cell Distribution Width 14.9 % (11.0-16.0); White Blood Count 6.6 X10*3/uL (4.8-10.8)
[2023-08-18 07:12] LABS: Anion Gap 13 (12-20); Blood Urea Nitrogen 7 mg/dL (9-16); Calcium 8.9 mg/dL (8.4-10.2); Carbon Dioxide 27 mmol/L (22-29); Chloride 101 mmol/L (96-108); Creatinine Clr Calc Pharmacy 147.4; Estimated Glomerular Filt Rate > 60; Glucose Random 89 mg/dL (60-115); Sodium 137 mmol/L (135-145)
[2023-08-18] MEDS: Multivitamin TABLET 1 TAB PO (07:35)
[2023-08-18] MEDS: methADONE HCl 20 MG/2 ML ORAL.CONC 40 MG PO (07:35)
[2023-08-18] MEDS: PHENobarbitaL 15 MG TABLET 45 MG PO ×2 (07:35→19:05)
[2023-08-18] MEDS: Folic Acid 1 MG TABLET PO (07:36)
[2023-08-18] MEDS: 0.9 % Sodium Chloride Flush 3 ML SYRINGE IVFLUSH ×3 (07:36→19:05)
[2023-08-18] MEDS: Famotidine 20 MG TABLET PO ×2 (07:36→19:05)
[2023-08-18] MEDS: Thiamine HCL 100 MG TABLET PO (07:36)
--- NOTE | 2023-08-18 07:45 | P.CONOP_ITS ---
History of Present Illness HPI Consult date: 08/18/23 Requesting physician: Gissell Oshea Chief complaint: Right arm cellulitis, alcohol withdrawal Narrative: RIght arm pain for several days 2/2 heroin injection. On methadone and trying to stay off heroin. ? etoh. Poor historian but no improvement subjectively on abx PMFSH Past Medical History Medical History Recurrent major depression-severe PTSD (post-traumatic stress disorder) PTSD (post-traumatic stress disorder) Hep C w/o coma, chronic Surgical History Surgical History History of surgery on arm Social History Social History Household Members: Other Housing: Homeless Do you presently have visiting nurse or other home services: No Alcohol intake: current Alcohol intake frequency: 3 or more drinks per day Alcohol type: beer and hard liquor Patient Tobacco Use Status: Current everyday Tobacco user Tobacco use type: Cigarette Cigarette Packs Per Day: 1 Cigarettes Per Day: 20.0 Years Smoked: 25 Smoked in Last 30 Days: Yes e-Cigarette/Vaping Use: Never Used Patient Interested in Nicotine Replacement: Yes Patient Given Instructions on How to Stop Smoking: No Second Hand Smoke Exposure: Yes Use of substances other than those prescribed or required for medical reasons: Yes Substance Use Type: Other Substance Use Type Other:: fentanyl Substance Use Frequency: Occasionally Have you been hit, kicked, punched, or otherwise hurt by someone within the past year? If so, by whom?: No Advance Directives: No Advance Directives Information Provided: Yes Do you have thoughts of harming others: None Do you have a plan to hurt others: No Plan Nutrition Risks: No Nutritional Risk service: Yes ([employer]) Sexual orientation: Straight/Heterosexual Meds Allergies Allergy/AdvReac Type Severity Reaction Status Date / Time fish derived [FISH] Allergy Unknown UNKNOWN - Verified 03/01/23 11:41 NOT ANAPHYLAXIS PER PATIENT trazodone AdvReac Severe priapr Verified 05/18/22 05:35 Active Medications: Current Medications Acetaminophen (Acetaminophen 325 Mg Tablet) 650 mg PO Q6H PRN PRN Reason: Pain, Mild (Pain Scale 1-3) Docusate Sodium (Docusate Sodium 100 Mg Capsule) 100 mg PO DAILY PRN PRN Reason: Constipation Enoxaparin Sodium (Enoxaparin Sodium 40 Mg/0.4 Ml Syringe) 40 mg SUBCUT Q24H [facility] Last Admin: 08/17/23 17:09 Dose: 40 mg Famotidine (Famotidine 20 Mg Tablet) 20 mg PO BID [facility] Last Admin: 08/18/23 07:36 Dose: 20 mg Folic Acid (Folic Acid 1 Mg Tablet) 1 mg PO DAILY [facility] Stop: 08/20/23 16:24 Last Admin: 08/18/23 07:36 Dose: 1 mg Hydromorphone HCl (Hydromorphone Hcl 0.5 Mg/0.5 Ml Syringe) 0.5 mg IVPUSH Q4H PRN; Protocol PRN Reason: Pain, Severe (Pain Scale 7-10) Vancomycin HCl 1,500 mg/ (Sodium Chloride) 500 mls @ 333.333 mls/hr IV Q12H [facility] Last Infusion: 08/18/23 02:11 Dose: Infused Lactated Ringer's (Lr) 1,000 mls @ 100 mls/hr IVCONT .Q10H [facility] Last Admin: 08/18/23 02:20 Dose: 100 mls/hr Methadone HCl (Methadone Hcl 20 Mg/2 Ml Oral.Conc) 40 mg PO DAILY [facility] Last Admin: 08/18/23 07:35 Dose: 40 mg Multivitamins/Vitamin C (Multivitamin Tablet) 1 tab PO DAILY [facility] Stop: 08/20/23 16:24 Last Admin: 08/18/23 07:35 Dose: 1 tab Nicotine (Nicotine 14 Mg Patch.Td24) 14 mg TRANSDERMA DAILY [facility] Last Admin: 08/18/23 06:13 Dose: Not Given Ondansetron HCl (Ondansetron Hcl 4 Mg/2 Ml Vial) 4 mg IVPUSH Q8H PRN PRN Reason: Nausea and Vomiting Pharmacy Consult (Consult Rx Vancomycin Dosing) 1 each MISCELLANE DAILY PRN PRN Reason: Consult order Pharmacy Consult (Consult Rx Etoh Phenob Im/Po) 1 each MISCELLANE ONCE PRN; Protocol PRN Reason: Consult order Phenobarbital (Phenobarbital 15 Mg Tablet) 45 mg PO BID [facility] Stop: 08/19/23 21:01 Last Admin: 08/18/23 07:35 Dose: 45 mg Phenobarbital (Phenobarbital 15 Mg Tablet) 15 mg PO BID [facility] Stop: 08/21/23 21:01 Phenobarbital (Phenobarbital 15 Mg Tablet) 15 mg PO DAILY [facility] Stop: 08/23/23 09:01 Sodium Chloride (0.9 % Sodium Chloride Flush 3 Ml Syringe) 3 ml IVFLUSH QSHIFT [facility] Last Admin: 08/18/23 07:36 Dose: 3 ml Thiamine HCl (Thiamine Hcl 100 Mg Tablet) 100 mg PO DAILY [facility] Stop: 08/20/23 16:24 Last Admin: 08/18/23 07:36 Dose: 100 mg Home Medications Medication Instructions Recorded Confirmed Last Taken Type methadone 10 mg/mL oral 110 mg PO DAILY 08/17/23 08/17/23 History concentrate (Methadone Intensol) Physical Exam 2 Vital Signs: Vital Signs: Last Vital Signs Temp 99.0 F 08/18/23 03:03 Pulse 59 08/18/23 03:03 Resp 18 08/18/23 03:03 BP 122/74 08/18/23 03:03 Pulse Ox 96 08/18/23 03:03 O2 Del Method Room Air 08/18/23 03:03 BMI result Body Mass Index 25.8 Extrem: Other: generalized edema WITHOUT fluctuance. Forearm soft. RRing finger with absent extension ( this has been present for months?). There is post traumatic scarring of proximal medial forearm with one area of eschar without drainage or fluctuance Results Labs 08/18/23 06:14 08/18/23 06:14 Labs: Abnormal lab results 08/17/23 08/18/23 Range/Units 11:25 06:14 RBC 4.42 L (4.60-5.80) X10*6/uL Hgb 9.1 L 9.7 L (14.0-18.0) g/dl Hct 29.6 L 31.2 L (42.0-52.0) % MCV 67.0 L 66.2 L (80.0-98.0) fL MCH 20.6 L 20.6 L (27.0-33.0) pg MCHC 30.7 L (31.0-36.0) g/dl Lymph % (Auto) 17.9 L (20-40) % [place] % (Auto) 12.3 H (2-11) % BUN 6 L 7 L (9-16) mg/dL H & H 08/17/23 08/18/23 Range/Units 11:25 06:14 Hgb 9.1 L 9.7 L (14.0-18.0) g/dl Hct 29.6 L 31.2 L (42.0-52.0) % All other labs normal. Diagnostic results Elbow CT: image reviewed ( Post surgical changes in the proximal forearm. 2. Possible hematoma and/or seroma or possibly evolving into abscess along the subcutaneous soft tissues of the anteromedial aspect of the proximal forearm just distal to the level of the surgical clips. 3. Generalized abnormal fluid like density not) Assessment and Plan (1) IVDU (intravenous drug user): Status: Acute (2) Cellulitis: Qualifiers: Laterality: right Site of cellulitis: extremity Site of cellulitis of extremity: upper extremity Qualified Code(s): L03.113 - Cellulitis of right upper limb Status: Acute At this time no role for surgical intervention. Continue IV ABX Time Spent With Patient Time: Total time managing care of this patient today _15__ minutes. Procedures Date of Service Date of Service: 08/18/23
[2023-08-18 08:00] VITALS: BP 130/74; PULSE 57; RESP 18; TEMP 37; O2SAT 98
--- NOTE | 2023-08-18 08:22 | P.PNGS_ITS ---
Subjective Subjective Date of Service: 08/18/23 Interval history: Patient complaining about not getting his full dose of methadone this morning. Continues to report right arm pain but is more concerned about his pain medication. Physical Exam 2 Vital Signs: Vital Signs: Last Vital Signs Temp 98.6 F 08/18/23 08:00 Pulse 57 08/18/23 08:00 Resp 18 08/18/23 08:00 BP 130/74 08/18/23 08:00 Pulse Ox 98 08/18/23 08:00 O2 Del Method Room Air 08/18/23 08:00 BMI result Body Mass Index 25.8 Const: General: alert and poor hygiene Nutritional Appearance: average body habitus Resp: Effort & Inspection: normal respiratory effort Extrem: Other: Right arm actually appears improved with decreased redness the forearm. Swelling still present extending into the hand. Patient is able to actively flex and extend fingers without tenderness. Able to bend elbow without tenderness. No fluctuant areas identified throughout the arm. Objective Data Active Medications Acetaminophen (Acetaminophen 325 Mg Tablet) 650 mg PO Q6H PRN PRN Reason: Pain, Mild (Pain Scale 1-3) Docusate Sodium (Docusate Sodium 100 Mg Capsule) 100 mg PO DAILY PRN PRN Reason: Constipation Enoxaparin Sodium (Enoxaparin Sodium 40 Mg/0.4 Ml Syringe) 40 mg SUBCUT Q24H [facility] Last Admin: 08/17/23 17:09 Dose: 40 mg Documented By: DIGNA Famotidine (Famotidine 20 Mg Tablet) 20 mg PO BID [facility] Last Admin: 08/18/23 07:36 Dose: 20 mg Documented By: CRYSTAL Folic Acid (Folic Acid 1 Mg Tablet) 1 mg PO DAILY [facility] Stop: 08/20/23 16:24 Last Admin: 08/18/23 07:36 Dose: 1 mg Documented By: CRYSTAL Hydromorphone HCl (Hydromorphone Hcl 0.5 Mg/0.5 Ml Syringe) 0.5 mg IVPUSH Q4H PRN; Protocol PRN Reason: Pain, Severe (Pain Scale 7-10) Vancomycin HCl 1,500 mg/ (Sodium Chloride) 500 mls @ 333.333 mls/hr IV Q12H [facility] Last Infusion: 08/18/23 02:11 Dose: Infused Documented By: NKECHI Lactated Ringer's (Lr) 1,000 mls @ 100 mls/hr IVCONT .Q10H [facility] Last Admin: 08/18/23 02:20 Dose: 100 mls/hr Documented By: NKECHI Methadone HCl (Methadone Hcl 20 Mg/2 Ml Oral.Conc) 40 mg PO DAILY [facility] Last Admin: 08/18/23 07:35 Dose: 40 mg Documented By: CRYSTAL Multivitamins/Vitamin C (Multivitamin Tablet) 1 tab PO DAILY [facility] Stop: 08/20/23 16:24 Last Admin: 08/18/23 07:35 Dose: 1 tab Documented By: CRYSTAL Nicotine (Nicotine 14 Mg Patch.Td24) 14 mg TRANSDERMA DAILY [facility] Last Admin: 08/18/23 06:13 Dose: Not Given Documented By: NKECHI Non-Admin Reason: Patient Asleep Ondansetron HCl (Ondansetron Hcl 4 Mg/2 Ml Vial) 4 mg IVPUSH Q8H PRN PRN Reason: Nausea and Vomiting Pharmacy Consult (Consult Rx Vancomycin Dosing) 1 each MISCELLANE DAILY PRN PRN Reason: Consult order Pharmacy Consult (Consult Rx Etoh Phenob Im/Po) 1 each MISCELLANE ONCE PRN; Protocol PRN Reason: Consult order Phenobarbital (Phenobarbital 15 Mg Tablet) 45 mg PO BID [facility] Stop: 08/19/23 21:01 Last Admin: 08/18/23 07:35 Dose: 45 mg Documented By: CRYSTAL Phenobarbital (Phenobarbital 15 Mg Tablet) 15 mg PO BID [facility] Stop: 08/21/23 21:01 Phenobarbital (Phenobarbital 15 Mg Tablet) 15 mg PO DAILY [facility] Stop: 08/23/23 09:01 Sodium Chloride (0.9 % Sodium Chloride Flush 3 Ml Syringe) 3 ml IVFLUSH QSHIFT [facility] Last Admin: 08/18/23 07:36 Dose: 3 ml Documented By: CRYSTAL Thiamine HCl (Thiamine Hcl 100 Mg Tablet) 100 mg PO DAILY [facility] Stop: 08/20/23 16:24 Last Admin: 08/18/23 07:36 Dose: 100 mg Documented By: CRYSTAL Labs 08/18/23 06:14 08/18/23 06:14 Labs: Laboratory Results - last 24 hr 08/17/23 08/18/23 11:25 06:14 MCV 67.0 L 66.2 L MCH 20.6 L 20.6 L MCHC 30.7 L 31.1 RDW 15.1 14.9 Plt Count 398 D 379 MPV 10.0 10.3 Immature Gran % (Auto) 0.4 Neut % (Auto) 66.7 Lymph % (Auto) 17.9 L [place] % (Auto) 12.3 H Eos % (Auto) 2.1 Baso % (Auto) 0.6 Lymph # (Auto) 1.5 [place] # (Auto) 1.0 Eos # (Auto) 0.2 Baso # (Auto) 0.1 Abs Immat Gran (auto) 0.03 Absolute Neuts (auto) 5.5 Absolute Nucleated RBC 0.000 0.000 Nucleated RBC % (auto) 0.0 0.0 Anion Gap 15 13 Estim Creat Clear Calc 141.0 147.4 Estimated GFR > 60 > 60 Random Glucose 97 89 Calcium 8.9 8.9 Magnesium 2.1 2.0 Procedures Date of Service Date of Service: 08/18/23 Progress Note: A&P Assessment and plan (1) Abscess: Status: Acute (2) Cellulitis: Status: Acute Plan Overall patient appears improved this morning with decreased erythema in the right arm. No areas of fluctuance are appreciated at this time. Discussed with Dr. Waggoner and orthopedic staff. Continue IV antibiotics. Time Spent With Patient Time: Total time managing care of this patient today ____ minutes. Quality Stroke Does the patient have a stroke diagnosis?: No VTE Prior VTE?: No VTE Risk Level:: Medical - moderate - high VTE Device Contraindication: Treatment Not Indicated VTE Drug Contraindication: N/A - Med Ordered
--- NOTE | 2023-08-18 09:02 | HE.PHANOTE ---
re: methadone verification last dose 110 mg 08/17/23 @[facility]
[2023-08-18] MEDS: methADONE HCl 20 MG/2 ML ORAL.CONC 70 MG PO (09:35)
--- NOTE | 2023-08-18 10:18 | HO.PM.IMPN ---
Subjective Subjective Date of Service: 08/18/23 Interval History: arm pain Physical Exam Vital Signs: Vital Signs: Last Vital Signs Temp 98.6 F 08/18/23 08:00 Pulse 57 08/18/23 08:00 Resp 18 08/18/23 08:00 BP 130/74 08/18/23 08:00 Pulse Ox 98 08/18/23 08:00 O2 Del Method Room Air 08/18/23 08:00 BMI result Body Mass Index 25.8 Const: General: alert and poor hygiene Nutritional Appearance: average body habitus Resp: Effort & Inspection: normal respiratory effort Cardio: Heart sounds: Murmur heart sound present Extrem: Other: Right arm actually appears improved with decreased redness the forearm. Swelling still present extending into the hand. Patient is able to actively flex and extend fingers without tenderness. Able to bend elbow without tenderness. No fluctuant areas identified throughout the arm. Objective Data Active Medications Acetaminophen (Acetaminophen 325 Mg Tablet) 650 mg PO Q6H PRN PRN Reason: Pain, Mild (Pain Scale 1-3) Docusate Sodium (Docusate Sodium 100 Mg Capsule) 100 mg PO DAILY PRN PRN Reason: Constipation Enoxaparin Sodium (Enoxaparin Sodium 40 Mg/0.4 Ml Syringe) 40 mg SUBCUT Q24H [facility] Last Admin: 08/17/23 17:09 Dose: 40 mg Documented By: DIGNA Famotidine (Famotidine 20 Mg Tablet) 20 mg PO BID [facility] Last Admin: 08/18/23 07:36 Dose: 20 mg Documented By: CRYSTAL Folic Acid (Folic Acid 1 Mg Tablet) 1 mg PO DAILY [facility] Stop: 08/20/23 16:24 Last Admin: 08/18/23 07:36 Dose: 1 mg Documented By: CRYSTAL Hydromorphone HCl (Hydromorphone Hcl 0.5 Mg/0.5 Ml Syringe) 0.5 mg IVPUSH Q4H PRN; Protocol PRN Reason: Pain, Severe (Pain Scale 7-10) Vancomycin HCl 1,500 mg/ (Sodium Chloride) 500 mls @ 333.333 mls/hr IV Q12H [facility] Last Infusion: 08/18/23 02:11 Dose: Infused Documented By: BRYANORALEvon Lactated Ringer's (Lr) 1,000 mls @ 100 mls/hr IVCONT .Q10H [facility] Last Admin: 08/18/23 02:20 Dose: 100 mls/hr Documented By: NKECHI Methadone HCl (Methadone Hcl 20 Mg/2 Ml Oral.Conc) 110 mg PO DAILY [facility] Multivitamins/Vitamin C (Multivitamin Tablet) 1 tab PO DAILY [facility] Stop: 08/20/23 16:24 Last Admin: 08/18/23 07:35 Dose: 1 tab Documented By: CRYSTAL Nicotine (Nicotine 14 Mg Patch.Td24) 14 mg TRANSDERMA DAILY [facility] Last Admin: 08/18/23 06:13 Dose: Not Given Documented By: NKECHI Non-Admin Reason: Patient Asleep Ondansetron HCl (Ondansetron Hcl 4 Mg/2 Ml Vial) 4 mg IVPUSH Q8H PRN PRN Reason: Nausea and Vomiting Pharmacy Consult (Consult Rx Vancomycin Dosing) 1 each MISCELLANE DAILY PRN PRN Reason: Consult order Pharmacy Consult (Consult Rx Etoh Phenob Im/Po) 1 each MISCELLANE ONCE PRN; Protocol PRN Reason: Consult order Phenobarbital (Phenobarbital 15 Mg Tablet) 45 mg PO BID [facility] Stop: 08/19/23 21:01 Last Admin: 08/18/23 07:35 Dose: 45 mg Documented By: CRYSTAL Phenobarbital (Phenobarbital 15 Mg Tablet) 15 mg PO BID [facility] Stop: 08/21/23 21:01 Phenobarbital (Phenobarbital 15 Mg Tablet) 15 mg PO DAILY [facility] Stop: 08/23/23 09:01 Sodium Chloride (0.9 % Sodium Chloride Flush 3 Ml Syringe) 3 ml IVFLUSH QSHIFT [facility] Last Admin: 08/18/23 07:36 Dose: 3 ml Documented By: CRYSTAL Thiamine HCl (Thiamine Hcl 100 Mg Tablet) 100 mg PO DAILY [facility] Stop: 08/20/23 16:24 Last Admin: 08/18/23 07:36 Dose: 100 mg Documented By: CRYSTAL Labs 08/18/23 06:14 08/18/23 06:14 Labs: Laboratory Results - last 24 hr 08/17/23 08/18/23 11:25 06:14 MCV 67.0 L 66.2 L MCH 20.6 L 20.6 L MCHC 30.7 L 31.1 RDW 15.1 14.9 Plt Count 398 D 379 MPV 10.0 10.3 Immature Gran % (Auto) 0.4 Neut % (Auto) 66.7 Lymph % (Auto) 17.9 L [place] % (Auto) 12.3 H Eos % (Auto) 2.1 Baso % (Auto) 0.6 Lymph # (Auto) 1.5 [place] # (Auto) 1.0 Eos # (Auto) 0.2 Baso # (Auto) 0.1 Abs Immat Gran (auto) 0.03 Absolute Neuts (auto) 5.5 Absolute Nucleated RBC 0.000 0.000 Nucleated RBC % (auto) 0.0 0.0 Anion Gap 15 13 Estim Creat Clear Calc 141.0 147.4 Estimated GFR > 60 > 60 Random Glucose 97 89 Calcium 8.9 8.9 Magnesium 2.1 2.0 Assessment and Plan (1) IVDU (intravenous drug user): Status: Acute Plan 43M PMH ivda, etoh dependnece, presented with right arm pain and swelling RUE cellulitis and possible abscess due to IVDA [facility] ortho appreciated - no role for surgical involvement at this time follow up cultures etoh dependence with withdrawal phenobarb opiate dependence with withdrawal methadone dvt prophyalxis - lovenox full code reason for continued hospitalization: iv abx for severe infection, concern for bacteremia Time Spent With Patient Time: Total time managing care of this patient today ____ minutes. Quality Stroke Does the patient have a stroke diagnosis?: No VTE Prior VTE?: No VTE Risk Level:: Medical - moderate - high VTE Device Contraindication: Treatment Not Indicated VTE Drug Contraindication: N/A - Med Ordered
[2023-08-18 11:32] LABS: Vancomycin Random 8.6 mcg/mL (15-20)
[2023-08-18 11:37] VITALS: BP 131/76; PULSE 90; RESP 16; TEMP 36.7; O2SAT 98
--- NOTE | 2023-08-18 11:54 | HE.PHANOTE ---
RE VANCO RENAL FUNCTION IS STABLE. INCREASING DOSE DUE TO LOWER TROUGH BUT WILL MONITOR SINCE PT HAS ETOH USE. NEXT LEVEL DUE 08/19 @1100 [facility]
[2023-08-18] MEDS: vancomycin HCL 1,000 MG in 0.9 % Sodium Chloride 250 ML 270 MG IV ×2 (12:43→21:38)
--- NOTE | 2023-08-18 13:47 | MHC.CM.PN ---
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 He uses [facility] to follow and assist with dc plan.
--- NOTE | 2023-08-18 14:32 | MHC.RECOVRN ---
Attempted to meet with pt in 486 after consult placed to Addiction Medicine for substance use. Pt presented to ED for arm infection and subsequently admitted for RUE cellulitis and possible abscess. Pt sleeping upon entering room, does not wake to voice. Resources left at bedside along with t/w contact information. T/w available if needed.
[2023-08-18 15:33] VITALS: BP 129/73; PULSE 53; RESP 20; TEMP 36.3; O2SAT 98
[2023-08-18] MEDS: Enoxaparin Sodium 40 MG/0.4 ML SYRINGE SUBCUT (16:14)
[2023-08-18 23:24] VITALS: BP 119/66; PULSE 55; RESP 18; TEMP 36.5; O2SAT 98
[2023-08-19 04:00] VITALS: BP 131/78; PULSE 51; RESP 18; TEMP 37; O2SAT 98
[2023-08-19] MEDS: vancomycin HCL 1,000 MG in 0.9 % Sodium Chloride 250 ML 270 MG IV (04:24)
[2023-08-19 06:31] LABS: Anion Gap 12 (12-20); Blood Urea Nitrogen 8 mg/dL (9-16); Carbon Dioxide 27 mmol/L (22-29); Chloride 99 mmol/L (96-108); Estimated Glomerular Filt Rate > 60; Glucose Fasting 112 mg/dL (60-99); Glucose Random 111 mg/dL (60-115); Potassium 4.1 mmol/L (3.3-5.1); Sodium 134 mmol/L (135-145)
[2023-08-19] MEDS: Lactated Ringers 1,000 ML 100 ML IVCONT (06:40)
[2023-08-19 06:54] LABS: Hematocrit 33.8 % (42.0-52.0); Hemoglobin 10.5 g/dl (14.0-18.0); Mean Corpuscular HGB Conc 31.1 g/dl (31.0-36.0); Mean Corpuscular Hemoglobin 20.6 pg (27.0-33.0); Mean Corpuscular Volume 66.4 fL (80.0-98.0); Mean Platelet Volume 10.9 fL (9.4-12.4); Platelet Count 447 X10*3/uL (160-400); Red Blood Count 5.09 X10*6/uL (4.60-5.80); Red Cell Distribution Width 14.7 % (11.0-16.0); White Blood Count 6.6 X10*3/uL (4.8-10.8)
[2023-08-19 08:00] VITALS: BP 135/82; PULSE 59; RESP 20; TEMP 36.8; O2SAT 99
[2023-08-19] MEDS: 0.9 % Sodium Chloride Flush 3 ML SYRINGE IVFLUSH ×3 (08:45→20:36)
[2023-08-19] MEDS: methADONE HCl 20 MG/2 ML ORAL.CONC 110 MG PO (08:45)
[2023-08-19] MEDS: Famotidine 20 MG TABLET PO ×2 (08:47→20:35)
[2023-08-19] MEDS: Folic Acid 1 MG TABLET PO (08:47)
[2023-08-19] MEDS: Multivitamin TABLET 1 TAB PO (08:47)
[2023-08-19] MEDS: Thiamine HCL 100 MG TABLET PO (08:47)
[2023-08-19] MEDS: Nicotine 14 MG PATCH.TD24 TRANSDERMA (08:48)
[2023-08-19] MEDS: PHENobarbitaL 15 MG TABLET 45 MG PO ×2 (08:49→20:35)
[2023-08-19] MEDS: HYDROmorphone HCl 0.5 MG/0.5 ML SYRINGE IVPUSH ×4 (09:01→22:16)
[2023-08-19] MEDS: Butalb/Acetamin/Caff 50/325/40 TABLET 2 TAB PO (10:28)
--- NOTE | 2023-08-19 10:31 | P.PNGS_ITS ---
Subjective Subjective Date of Service: 08/19/23 Interval history: Overall patient feels improved but continues to have pain in the hand. Denies any further pain in the upper arm and axilla. Physical Exam 2 Vital Signs: Vital Signs: Last Vital Signs Temp 98.3 F 08/19/23 08:00 Pulse 59 08/19/23 08:00 Resp 20 08/19/23 08:00 BP 135/82 08/19/23 08:00 Pulse Ox 99 08/19/23 08:00 O2 Del Method Room Air 08/19/23 08:00 BMI result Body Mass Index 25.8 Const: General: alert Nutritional Appearance: well nourished O rientation/consciousness: patient oriented x3 HEENT: Other: Rash over face noted Resp: Other: Breathing comfortably on room air, no respiratory distress Skin: Other: Warm and dry rashes noted on face Neuro: General: patient oriented x3 Extrem: Other: Right arm erythema much improved. Residual area of erythema noted at the distal radial head at site of multiple injection lee. Hand remains swollen but upper arm appears resolved. No areas of fluctuance appreciated at this time. Objective Data Active Medications Acetaminophen (Acetaminophen 325 Mg Tablet) 650 mg PO Q6H PRN PRN Reason: Pain, Mild (Pain Scale 1-3) Docusate Sodium (Docusate Sodium 100 Mg Capsule) 100 mg PO DAILY PRN PRN Reason: Constipation Enoxaparin Sodium (Enoxaparin Sodium 40 Mg/0.4 Ml Syringe) 40 mg SUBCUT Q24H [facility] Last Admin: 08/18/23 16:14 Dose: 40 mg Documented By: CRYSTAL Famotidine (Famotidine 20 Mg Tablet) 20 mg PO BID [facility] Last Admin: 08/19/23 08:47 Dose: 20 mg Documented By: LISA Folic Acid (Folic Acid 1 Mg Tablet) 1 mg PO DAILY [facility] Stop: 08/20/23 16:24 Last Admin: 08/19/23 08:47 Dose: 1 mg Documented By: LISA Hydromorphone HCl (Hydromorphone Hcl 0.5 Mg/0.5 Ml Syringe) 0.5 mg IVPUSH Q4H PRN; Protocol PRN Reason: Pain, Severe (Pain Scale 7-10) Last Admin: 08/19/23 09:01 Dose: 0.5 mg Documented By: LISA Vancomycin HCl 1,000 mg/ (Sodium Chloride) 270 mls @ 270 mls/hr IV Q8H [facility] Last Infusion: 08/19/23 06:40 Dose: Infused Documented By: MARIO Methadone HCl (Methadone Hcl 20 Mg/2 Ml Oral.Conc) 110 mg PO DAILY [facility] Last Admin: 08/19/23 08:45 Dose: 110 mg Documented By: LISA Multivitamins/Vitamin C (Multivitamin Tablet) 1 tab PO DAILY [facility] Stop: 08/20/23 16:24 Last Admin: 08/19/23 08:47 Dose: 1 tab Documented By: LISA Nicotine (Nicotine 14 Mg Patch.Td24) 14 mg TRANSDERMA DAILY [facility] Last Admin: 08/19/23 08:48 Dose: 14 mg Documented By: LISA Ondansetron HCl (Ondansetron Hcl 4 Mg/2 Ml Vial) 4 mg IVPUSH Q8H PRN PRN Reason: Nausea and Vomiting Pharmacy Consult (Consult Rx Vancomycin Dosing) 1 each MISCELLANE DAILY PRN PRN Reason: Consult order Pharmacy Consult (Consult Rx Etoh Phenob Im/Po) 1 each MISCELLANE ONCE PRN; Protocol PRN Reason: Consult order Phenobarbital (Phenobarbital 15 Mg Tablet) 45 mg PO BID [facility] Stop: 08/19/23 21:01 Last Admin: 08/19/23 08:49 Dose: 45 mg Documented By: LISA Phenobarbital (Phenobarbital 15 Mg Tablet) 15 mg PO BID [facility] Stop: 08/21/23 21:01 Phenobarbital (Phenobarbital 15 Mg Tablet) 15 mg PO DAILY [facility] Stop: 08/23/23 09:01 Sodium Chloride (0.9 % Sodium Chloride Flush 3 Ml Syringe) 3 ml IVFLUSH QSHIFT [facility] Last Admin: 08/19/23 08:45 Dose: 3 ml Documented By: LISA Thiamine HCl (Thiamine Hcl 100 Mg Tablet) 100 mg PO DAILY [facility] Stop: 08/20/23 16:24 Last Admin: 08/19/23 08:47 Dose: 100 mg Documented By: LISA Labs 08/19/23 05:42 08/19/23 05:42 Labs: Laboratory Results - last 24 hr 08/18/23 08/19/23 08/19/23 11:08 05:42 05:42 MCV 66.4 L Cancelled MCH 20.6 L MCHC RDW Plt Count MPV Absolute Nucleated RBC Nucleated RBC % (auto) Anion Gap Estim Creat Clear Calc Estimated GFR Random Glucose Fasting Glucose Calcium Magnesium Random Vancomycin 8.6 L 08/19/23 08/19/23 08/19/23 05:42 05:42 05:42 MCV MCH Cancelled MCHC 31.1 Cancelled RDW 14.7 Cancelled Plt Count 447 H MPV Absolute Nucleated RBC Nucleated RBC % (auto) Anion Gap Estim Creat Clear Calc Estimated GFR Random Glucose Fasting Glucose Calcium Magnesium Random Vancomycin 08/19/23 08/19/23 08/19/23 05:42 05:42 05:42 MCV MCH MCHC RDW Plt Count Cancelled MPV 10.9 Cancelled Absolute Nucleated RBC 0.000 Cancelled Nucleated RBC % (auto) 0.0 Anion Gap Estim Creat Clear Calc Estimated GFR Random Glucose Fasting Glucose Calcium Magnesium Random Vancomycin 08/19/23 05:42 MCV MCH MCHC RDW Plt Count MPV Absolute Nucleated RBC Nucleated RBC % (auto) Cancelled Anion Gap 12 Estim Creat Clear Calc 152.0 Estimated GFR > 60 Random Glucose 111 Fasting Glucose 112 H Calcium 9.0 Magnesium 2.0 Random Vancomycin Microbiology Microbiology Results: Microbiology 08/17/23 11:32 Blood Culture - Preliminary Blood - Arterial No growth after 24 hours. 08/17/23 11:25 Blood Culture - Preliminary Blood - Arterial No growth after 24 hours. Procedures Date of Service Date of Service: 08/19/23 Progress Note: A&P Assessment and plan (1) Abscess: Status: Acute (2) Cellulitis: Status: Acute Plan 43-year-old male patient with history of IV drug use presenting with marked cellulitis of the right upper extremity. Patient continues to show improvement with decreased erythema and decreased pain noted in the upper arm. He continues to have swelling and pain in the and but has full range of motion at the hand wrist and elbow. Continue IV antibiotics. Time Spent With Patient Time: Total time managing care of this patient today ____ minutes. Quality Stroke Does the patient have a stroke diagnosis?: No VTE Prior VTE?: No VTE Risk Level:: Medical - moderate - high VTE Device Contraindication: Treatment Not Indicated VTE Drug Contraindication: N/A - Med Ordered
[2023-08-19 11:51] VITALS: BP 120/62; PULSE 52; RESP 20; TEMP 36.4; O2SAT 98
[2023-08-19 12:27] LABS: Vancomycin Random 11.9 mcg/mL (15-20)
--- NOTE | 2023-08-19 12:40 | HE.PHANOTE ---
RE: VANCO DOSING SCR STABLE AT 0.64, BUT AFTER 6 DOSES TROUGH IS ONLY 11.9. INCREASING DOSE TO 1250 [id number] AND WILL RECHECK LEVEL AGAIN 08/20 @1100 TO ENSURE SAFETY AND EFFICACY. EXPECT AUC 489 AND TROUGH ~15.4.
[2023-08-19] MEDS: vancomycin HCL 1,250 MG in 0.9 % Sodium Chloride 250 ML 166.67 MG IV ×2 (13:26→20:35)
--- NOTE | 2023-08-19 14:36 | HO.PM.IMPN ---
Subjective Subjective Date of Service: 08/19/23 Interval History: Seen and evaluated this morning reporting headache and pain in RUE No fever or chills erythema and swelling improving Review of Systems Review of Systems: Yes all other systems are reviewed and are negative Physical Exam Vital Signs: Vital Signs: Last Vital Signs Temp 97.5 F 08/19/23 11:51 Pulse 52 08/19/23 11:51 Resp 20 08/19/23 11:51 BP 120/62 08/19/23 11:51 Pulse Ox 98 08/19/23 11:51 O2 Del Method Room Air 08/19/23 11:51 BMI result Body Mass Index 25.8 Const: Other: Constitutional : Awake, interactive, not in distress Neck : Normal inspection, Supple Cardiovascular : RRR, no JVP, no lower extremity edema Respiratory : good bilateral air entry, no crackles, wheezes or rhonchi Gastrointestinal: soft, lax, Normal bowel sounds, Non tender Skeletal: RUE erythema and swelling decreased, missing Rt ring finger extension, good ROM Skin : Warm, Dry, injection lee Neurological : Alert & oriented x3, No focal deficit Objective Data Active Medications Acetaminophen (Acetaminophen 325 Mg Tablet) 650 mg PO Q6H PRN PRN Reason: Pain, Mild (Pain Scale 1-3) Docusate Sodium (Docusate Sodium 100 Mg Capsule) 100 mg PO DAILY PRN PRN Reason: Constipation Enoxaparin Sodium (Enoxaparin Sodium 40 Mg/0.4 Ml Syringe) 40 mg SUBCUT Q24H [facility] Last Admin: 08/18/23 16:14 Dose: 40 mg Documented By: CRYSTAL Famotidine (Famotidine 20 Mg Tablet) 20 mg PO BID [facility] Last Admin: 08/19/23 08:47 Dose: 20 mg Documented By: LISA Folic Acid (Folic Acid 1 Mg Tablet) 1 mg PO DAILY [facility] Stop: 08/20/23 16:24 Last Admin: 08/19/23 08:47 Dose: 1 mg Documented By: LISA Hydromorphone HCl (Hydromorphone Hcl 0.5 Mg/0.5 Ml Syringe) 0.5 mg IVPUSH Q4H PRN; Protocol PRN Reason: Pain, Severe (Pain Scale 7-10) Last Admin: 08/19/23 13:22 Dose: 0.5 mg Documented By: LISA Vancomycin HCl 1,250 mg/ (Sodium Chloride) 250 mls @ 166.667 mls/hr IV Q8H [facility] Last Admin: 08/19/23 13:26 Dose: 166.67 mls/hr Documented By: LISA Methadone HCl (Methadone Hcl 20 Mg/2 Ml Oral.Conc) 110 mg PO DAILY [facility] Last Admin: 08/19/23 08:45 Dose: 110 mg Documented By: LISA Multivitamins/Vitamin C (Multivitamin Tablet) 1 tab PO DAILY [facility] Stop: 08/20/23 16:24 Last Admin: 08/19/23 08:47 Dose: 1 tab Documented By: LISA Nicotine (Nicotine 14 Mg Patch.Td24) 14 mg TRANSDERMA DAILY [facility] Last Admin: 08/19/23 08:48 Dose: 14 mg Documented By: LISA Ondansetron HCl (Ondansetron Hcl 4 Mg/2 Ml Vial) 4 mg IVPUSH Q8H PRN PRN Reason: Nausea and Vomiting Pharmacy Consult (Consult Rx Vancomycin Dosing) 1 each MISCELLANE DAILY PRN PRN Reason: Consult order Pharmacy Consult (Consult Rx Etoh Phenob Im/Po) 1 each MISCELLANE ONCE PRN; Protocol PRN Reason: Consult order Phenobarbital (Phenobarbital 15 Mg Tablet) 45 mg PO BID [facility] Stop: 08/19/23 21:01 Last Admin: 08/19/23 08:49 Dose: 45 mg Documented By: LISA Phenobarbital (Phenobarbital 15 Mg Tablet) 15 mg PO BID [facility] Stop: 08/21/23 21:01 Phenobarbital (Phenobarbital 15 Mg Tablet) 15 mg PO DAILY [facility] Stop: 08/23/23 09:01 Sodium Chloride (0.9 % Sodium Chloride Flush 3 Ml Syringe) 3 ml IVFLUSH QSHIFT [facility] Last Admin: 08/19/23 08:45 Dose: 3 ml Documented By: LISA Thiamine HCl (Thiamine Hcl 100 Mg Tablet) 100 mg PO DAILY [facility] Stop: 08/20/23 16:24 Last Admin: 08/19/23 08:47 Dose: 100 mg Documented By: LISA Labs 08/19/23 05:42 08/19/23 05:42 Labs: Laboratory Results - last 24 hr 08/19/23 08/19/2323 05:42 05:42 05:42 MCV 66.4 L Cancelled MCH 20.6 L Cancelled MCHC 31.1 RDW Plt Count MPV Absolute Nucleated RBC Nucleated RBC % (auto) Anion Gap Estim Creat Clear Calc Estimated GFR Random Glucose Fasting Glucose Calcium Magnesium Random Vancomycin 08/19/23 08/19/23 08/19/23 05:42 05:42 05:42 MCV MCH MCHC Cancelled RDW 14.7 Cancelled Plt Count 447 H Cancelled MPV 10.9 Absolute Nucleated RBC Nucleated RBC % (auto) Anion Gap Estim Creat Clear Calc Estimated GFR Random Glucose Fasting Glucose Calcium Magnesium Random Vancomycin 08/19/23 08/19/23 08/19/23 05:42 05:42 05:42 MCV MCH MCHC RDW Plt Count MPV Cancelled Absolute Nucleated RBC 0.000 Cancelled Nucleated RBC % (auto) 0.0 Cancelled Anion Gap 12 Estim Creat Clear Calc 152.0 Estimated GFR > 60 Random Glucose 111 Fasting Glucose 112 H Calcium 9.0 Magnesium 2.0 Random Vancomycin 08/19/23 11:48 MCV MCH MCHC RDW Plt Count MPV Absolute Nucleated RBC Nucleated RBC % (auto) Anion Gap Estim Creat Clear Calc Estimated GFR Random Glucose Fasting Glucose Calcium Magnesium Random Vancomycin 11.9 L Microbiology Microbiology Results: Microbiology 08/17/23 11:32 Blood Culture - Preliminary Blood - Arterial No growth after 48 hours. 08/17/23 11:25 Blood Culture - Preliminary Blood - Arterial No growth after 48 hours. Assessment and Plan (1) IVDU (intravenous drug user): Status: Acute (2) Cellulitis: Status: Acute (3) Alcohol dependence: Status: Acute (4) Alcohol withdrawal syndrome: Status: Inactive Plan 43M PMH ivda, etoh dependnece, presented with right arm pain and swelling RUE cellulitis due to IVDA continue vanc Surgery and ortho appreciated - no role for surgical involvement at this time Negative cultures follow Vanco trough etoh dependence with withdrawal phenobarb Headache Fiorecit PRN Mild Hyponatremia encourage PO intake follow BMP opiate dependence with withdrawal methadone dvt prophyalxis - lovenox full code reason for continued hospitalization: iv abx for severe infection Time Spent With Patient Time: Total time managing care of this patient today ____ minutes. Quality Stroke Does the patient have a stroke diagnosis?: No VTE Prior VTE?: No VTE Risk Level:: Medical - moderate - high VTE Device Contraindication: Treatment Not Indicated VTE Drug Contraindication: N/A - Med Ordered
[2023-08-19 15:01] VITALS: BP 119/63; PULSE 52; RESP 18; TEMP 36.1; O2SAT 98
[2023-08-19] MEDS: Butalb/Acetamin/Caff 50/325/40 TABLET 1 TAB PO ×2 (15:54→20:35)
[2023-08-19] MEDS: PHENobarbitaL sodium 130 MG/ML VIAL IM (15:55)
[2023-08-19] MEDS: Enoxaparin Sodium 40 MG/0.4 ML SYRINGE SUBCUT (17:49)
[2023-08-19 19:07] VITALS: BP 110/61; PULSE 52; RESP 12; TEMP 36.3; O2SAT 100
[2023-08-19 23:33] VITALS: BP 103/70; PULSE 45; RESP 18; TEMP 36.4; O2SAT 97
[2023-08-20 04:00] VITALS: BP 121/68; PULSE 52; RESP 18; TEMP 36.7; O2SAT 98
[2023-08-20] MEDS: vancomycin HCL 1,250 MG in 0.9 % Sodium Chloride 250 ML 166.67 MG IV (04:49)
[2023-08-20] MEDS: PHENobarbitaL 15 MG TABLET PO (07:56)
[2023-08-20] MEDS: Folic Acid 1 MG TABLET PO (07:57)
[2023-08-20] MEDS: Nicotine 14 MG PATCH.TD24 TRANSDERMA (07:57)
[2023-08-20] MEDS: Thiamine HCL 100 MG TABLET PO (07:57)
[2023-08-20] MEDS: Multivitamin TABLET 1 TAB PO (07:57)
[2023-08-20] MEDS: Famotidine 20 MG TABLET PO (07:57)
[2023-08-20] MEDS: methADONE HCl 20 MG/2 ML ORAL.CONC 110 MG PO (07:58)
[2023-08-20 08:00] VITALS: BP 126/80; PULSE 51; RESP 20; TEMP 36.9; O2SAT 100
[2023-08-20] MEDS: 0.9 % Sodium Chloride Flush 3 ML SYRINGE IVFLUSH (08:02)
[2023-08-20] MEDS: HYDROmorphone HCl 0.5 MG/0.5 ML SYRINGE IVPUSH (08:02)
[2023-08-20 11:24] VITALS: BP 126/75; PULSE 48; RESP 20; TEMP 36.8; O2SAT 99
[2023-08-20 11:25] LABS: Hematocrit 37.3 % (42.0-52.0); Hemoglobin 11.4 g/dl (14.0-18.0); Mean Corpuscular HGB Conc 30.6 g/dl (31.0-36.0); Mean Corpuscular Hemoglobin 20.7 pg (27.0-33.0); Mean Corpuscular Volume 67.6 fL (80.0-98.0); Mean Platelet Volume 10.9 fL (9.4-12.4); Platelet Count 372 X10*3/uL (160-400); Red Blood Count 5.52 X10*6/uL (4.60-5.80); Red Cell Distribution Width 15.1 % (11.0-16.0); White Blood Count 7.1 X10*3/uL (4.8-10.8)
[2023-08-20 11:38] LABS: Vancomycin Random 16.1 mcg/mL (15-20)
[2023-08-20 11:41] LABS: Anion Gap 16 (12-20); Blood Urea Nitrogen 8 mg/dL (9-16); Calcium 9.2 mg/dL (8.4-10.2); Carbon Dioxide 19 mmol/L (22-29); Chloride 104 mmol/L (96-108); Estimated Glomerular Filt Rate > 60; Glucose Random 106 mg/dL (60-115); Magnesium 2.1 mg/dL (1.6-2.6); Potassium 4.3 mmol/L (3.3-5.1); Sodium 135 mmol/L (135-145)
--- NOTE | 2023-08-20 11:42 | MHC.CM.PN ---
Pt has been medically cleared for dc. He said he might go to [facility], CM asked recovery nurse to assist with this. She had provided pt with information to set this up. CM gave pt phone number to call there today. Pt said this is a N program and that he is connected with [facility]. Knapsack given to PT ([employer] blessing bag), transportation will be arranged via Lyft.
--- NOTE | 2023-08-20 11:50 | HE.PHANOTE ---
RE VANCO DOSING TROUGH IS 16.1 AND SCR IS STABLE AT 0.69. INSIGHT SHOWS PT SHOULD NOT SEE MUCH MORE OF A RISE IN AUC AND TROUGH AT THIS TIME. WILL CONTINUE ON SOME DOSING REGIMEN AND RECHECK LEVEL 08/21/23 @1100 TO ENSURE SAFETY AND EFFICACY.
--- NOTE | 2023-08-20 13:26 | PM.DS ---
DS: Providers Provider Date of Service: 08/20/23 Date of admission: 08/17/23 18:01 Primary care physician: Unknown Physician Consults: 08/17/23 16:28 Consult to Orthopedics Routine Consulting Provider: Anjelica Hunt Reason for consultation: IVDU w/ right hand/arm cellulitis, ?abscess 08/17/23 16:30 Consult to General Surgery Routine Consulting Provider: [facility] Reason for consultation: IVDU w/ right hand & arm cellulitis, ?abscess 08/17/23 16:32 Addiction Medicine Routine Consulting Provider: Addiction Covering Reason for consultation: IVDU on methadone DS: Diagnosis Discharge Diagnosis (1) IVDU (intravenous drug user): Status: Acute (2) Cellulitis: Status: Acute (3) Alcohol dependence: Status: Acute (4) Alcohol withdrawal syndrome: Status: Inactive DS: Summary Hospital Course Hospital Course: Admission note HPI Pt is a 43-year-old male with a PMH significant for?IVDU who presents to the ED with?2-3 days of right hand and arm pain, swelling, and redness. Pt has a long history of IVDU primarily injects cocaine in his upper extremities and hands. Patient began noticing symptoms between 2 and 3 days ago, states he has also had fever, chills, fatigue, and right shoulder and back pain. Pt is somnolent but arousable, constantly drifting in and out of sleep. However, patient is overall rather unhelpful at providing history or answering follow-up questions in any detail. Does state he believes he is going through alcohol withdrawal. Reports drinking over half a gal of vodka each day, with last drink yesterday. Also reports a history of withdrawal seizures. Denies auditory or visual hallucinations. No nausea, vomiting diarrhea, abdominal pain. In the ED patient was afebrile and normotensive. Labs were significant for stable H&H 9.1/29.6 (around baseline), otherwise grossly unremarkable. No leukocytosis. Electrolytes WNL. Renal function baseline. CT?of right forearm showed possible hematoma and/or seroma possibly evolving into abscess. Also found generalized abnormal fluid like density throughout the forearm and extended the proximal hand compatible with edema and perhaps scattered areas of cellulitis and or fasciitis. EKG pending. Pt was treated with vancomycin and cefazolin. Pt will be admitted to the hospital for treatment further evaluation of alcohol withdrawal and right upper extremity cellulitis with question of hematoma/seroma/abscess. Hospital course #RUE cellulitis due to IVDA Evaluated with a CT scan that showed possible fluid collection. evaluated by surgery and ortho appreciated who recommended no role for surgical involvement at this time as the patient was treated with IV Vancomycin with good response as erythema, swelling and pain improved. Negative cultures. #etoh dependence with withdrawal Treated with phenobarbital protocol with addition of Folic acid and Thiamin. Advised complete absitenece from alcohol. # Mild Hyponatremia encourage PO intake. resolved. # opiate dependence with withdrawal Evaluated by Addiction team and continued on methadone with fair response. Continue Antibiotics as prescribed Avoid using IV drugs We advise you abstinence from alcohol Follow with Orthopedics as outpatient as needed Time Spent with Patient Time attestation: Total time managing care of this patient today ____ minutes. Discharge coordination time: Greater than 30 minutes Quality: Safe Use of Opioids Does Pt have an Active Cancer Diagnosis on the Problem List?: No Quality: Stroke Does the patient have a stroke diagnosis?: No Physical Exam Vital Signs: Vital Signs: Last Vital Signs Temp 98.2 F 08/20/23 11:24 Pulse 48 L 08/20/23 11:24 Resp 20 08/20/23 11:24 BP 126/75 08/20/23 11:24 Pulse Ox 99 08/20/23 11:24 O2 Del Method Room Air 08/20/23 11:24 BMI result Body Mass Index 25.8 Const: Other: Constitutional : Awake, interactive, not in distress Neck : Normal inspection, Supple Cardiovascular : RRR, no JVP, no lower extremity edema Respiratory : good bilateral air entry, no crackles, wheezes or rhonchi Gastrointestinal: soft, lax, Normal bowel sounds, Non tender Skeletal: RUE erythema and swelling decreased, decreased Rt ring finger extension, good ROM Skin : Warm, Dry, injection lee Neurological : Alert & oriented x3, No focal deficit DS: Data Data Completed and Pending Labs on day of discharge: Laboratory Results - last 24 hr 08/20/23 08/20/23 08/20/23 11:08 11:08 11:08 WBC 7.1 RBC 5.52 Hgb 11.4 L Hct 37.3 L MCV 67.6 L MCH 20.7 L MCHC 30.6 L RDW 15.1 Plt Count 372 MPV 10.9 Absolute Nucleated RBC 0.000 Nucleated RBC % (auto) 0.0 Sodium 135 Potassium 4.3 Chloride 104 Carbon Dioxide 19 L Anion Gap 16 BUN 8 L Creatinine 0.69 Cancelled Estim Creat Clear Calc 141.0 Cancelled Estimated GFR > 60 Random Glucose Calcium Magnesium Random Vancomycin 08/20/23 11:08 WBC RBC Hgb Hct MCV MCH MCHC RDW Plt Count MPV Absolute Nucleated RBC Nucleated RBC % (auto) Sodium Potassium Chloride Carbon Dioxide Anion Gap BUN Creatinine Estim Creat Clear Calc Estimated GFR Cancelled Random Glucose 106 Calcium 9.2 Magnesium 2.1 Random Vancomycin 16.1 Preliminary micro results at discharge 08/17/23 11:32 Blood Culture - Preliminary Blood - Arterial No growth after 48 hours. 08/17/23 11:25 Blood Culture - Preliminary Blood - Arterial No growth after [address] Forearm : Radiologist's impression: ITS Impressions Forearm CT 08/17/23 12:28 IMPRESSION: 1. Post surgical changes in the proximal forearm. 2. Possible hematoma and/or seroma or possibly evolving into abscess along the subcutaneous soft tissues of the anteromedial aspect of the proximal forearm just distal to the level of the surgical clips. 3. Generalized abnormal fluid like density noted throughout the forearm and extending into the proximal hand compatible edema and perhaps scattered areas of cellulitis and/or fasciitis. No definite soft tissue enhancement. Discharge Plan Discharge Anticipated Discharge Date/Time: 08/20/23 12:48 Patient Disposition: Home, Self-Care Discharge Diagnosis: Cellulitis Alcohol withdrawal Referrals: Physician,Unknown J [Primary Care Provider] - 1 Week Discharge Medications: New famotidine 20 mg Tablet 20 mg PO DAILY Qty: 30 0RF folic acid 1 mg Tablet 1 mg PO DAILY Qty: 30 0RF thiamine mononitrate (vit B1) 100 mg Tablet 100 mg PO DAILY Qty: 30 0RF doxycycline monohydrate 100 mg capsule 100 mg PO BID Qty: 14 0RF cefuroxime axetil 500 mg tablet 500 mg PO BID Qty: 14 0RF oxycodone 5 mg tablet 5 mg PO Q8H PRN (Reason: pain (scale score 7-10)) Qty: 10 0RF Rx Instructions: Partial Fill upon patient request. Continued methadone [Methadone Intensol] 10 mg/mL Concentrate 110 mg PO DAILY Discharge Orders: Discharge Order (Routine); Ordered 08/20/23 Ordered By: Patricia Villa Diet: Advance to usual diet Activity on Discharge: As tolerated Stand Alone Forms: Patient Portal Discharge page Care Plan Goals: Read below Health Concerns: Read below Plan of Treatment: Read below Assessment: You were admitted for treatment of swelling and pain in right arm. evaluated by orthopedic surgeon who reviewed images and did not feel any surgical intervention needed. Treated with IV antibiotics with good response. Continue Antibiotics as prescribed Avoid using IV drugs We advise you abstinence from alcohol Follow with Orthopedics as outpatient as needed
--- NOTE | 2023-08-20 15:51 | MHC.CM.PN ---
Pt left on his own today. CM attempted to get a Lyft ride for him, none were available. Offered him a bus pass. He obtained his belongings from security and left on his own.
== END 2023-08-20 16:19 | disposition home or self-care (01) | DRG 383 ==
LOC: HO.ED 15:11 → HO.EDOVER 18:02 → HO.IMC 18:55
PROVIDERS: Internal Medicine; Admitting Provider Student in an Organized Health Care Education/Training Program; Emergency Provider Emergency Medicine; Visit Provider Student in an Organized Health Care Education/Training Program
DX: L03.113 Cellulitis of right upper limb (principal); E87.1 Hypo-osmolality and hyponatremia; F10.239 Alcohol dependence with withdrawal, unspecified; F11.23 Opioid dependence with withdrawal; L02.413 Cutaneous abscess of right upper limb; F17.210 Nicotine dependence, cigarettes, uncomplicated; F43.10 Post-traumatic stress disorder, unspecified; Z71.6 Tobacco abuse counseling
CPT/HCPCS: 36415; 73201; 80048; 80202; 83735; 85025; 85027; 87040; 93005; 99222; 99285; J0690; J1170; J1650; J2560; J3370; J3371; Q9967

== ENCOUNTER → 2023-08-17 10:37 | Outpatient (BNV) | payer MEDICAID, SELFPAY | PROVIDERS: Emergency Provider Emergency Medicine; Visit Provider Surgery | DX: F19.90 Other psychoactive substance use, unspecified, uncomplicated (principal); L03.113 Cellulitis of right upper limb; L02.91 Cutaneous abscess, unspecified | CPT/HCPCS: 99222; 99232 ==

== ENCOUNTER → 2023-08-17 18:01 | Outpatient (BNV) | payer MEDICAID, SELFPAY | PROVIDERS: Admitting Provider Student in an Organized Health Care Education/Training Program; Emergency Provider Emergency Medicine; Visit Provider Student in an Organized Health Care Education/Training Program | DX: F19.90 Other psychoactive substance use, unspecified, uncomplicated (principal); L03.113 Cellulitis of right upper limb; F10.239 Alcohol dependence with withdrawal, unspecified | CPT/HCPCS: 99223; 99233; 99239 ==

== ENCOUNTER → 2023-08-17 18:01 | Outpatient (BNV) | payer MEDICAID, SELFPAY | PROVIDERS: Admitting Provider Student in an Organized Health Care Education/Training Program; Emergency Provider Emergency Medicine; Visit Provider Orthopaedic Surgery | DX: F19.90 Other psychoactive substance use, unspecified, uncomplicated (principal); L03.113 Cellulitis of right upper limb | CPT/HCPCS: 99222 ==

== ENCOUNTER 2023-08-22 21:20 | Emergency (ER) | payer MEDICAID, OTHER, SELFPAY ==
[2023-08-22 21:23] VITALS: BP 134/90; PULSE 75; RESP 16; TEMP 36.2; O2SAT 99; BMI 25.8
--- NOTE | 2023-08-22 21:29 | ED.PSYCH ---
HPI - Psych General Chief Complaint: Psychiatric Symptoms Stated Complaint: si seeking detox Time Seen by Provider: 08/22/23 21:25 Source: patient Mode of arrival: EMS Limitations: no limitations History of Present Illness HPI Narrative: Patient comes to the emergency room complaining of suicidal ideation. Patient also requesting detox. According to the patient, patient has access to his brother's gone. Otherwise, patient denies any other symptoms. Related Data Home Medications Medication Instructions Recorded Confirmed No Known Home Meds 08/22/23 08/22/23 Allergies Allergy/AdvReac Type Severity Reaction Status Date / Time fish derived [FISH] Allergy Unknown UNKNOWN - Verified 03/01/23 11:41 NOT ANAPHYLAXIS PER PATIENT trazodone AdvReac Severe priapr Verified 05/18/22 05:35 Review of Systems Review of Systems: Constitutional : No Weight loss, No Fever, No Chills, No Night Sweats, No Fatigue, No Malaise ENT/Mouth : No Hearing loss, No Ear Pain, No Nasal Congestion, No Sinus Pain, No Hoarseness, No sore throat, No Rhinorrhea, No Swallowing Difficulty Eyes: No Eye Pain, No Swelling, No Redness, No Foreign Body, No Discharge, No Vision Changes Cardiovascular : No Chest Pain, No SOB, No Dyspnea on Exertion, No Orthopnea, No Edema, No Palpitations Respiratory : No Cough, No Sputum, No Wheezing, No Smoke Exposure, No Dyspnea Gastrointestinal : No Nausea, No Vomiting, No Diarrhea, No Constipation, No abdominal Pain, No Hematochezia, No Melena Genitourinary : no irregular bleeding, No Dysuria, No Urinary Frequency, No Hematuria, No Urinary Incontinence, No Urgency, No Flank Pain, No Urinary Flow Changes, No Hesitancy Musculoskeletal : No joint pain, No Myalgias, No Joint Swelling Skin : No Skin Lesions, No rash Neuro : No Weakness, No Numbness, No Paresthesias, No Loss of Consciousness, No Dizziness, No Headache Psych : Complaining of anxiety, depression, SI, admits to polysubstance abuse Heme/Lymph: No Bruising, No Bleeding,No Lymphadenopathy Endocrine : No Polyuria, No Polydipsia, No Temperature Intolerance PMFSH Past Medical History Medical History Recurrent major depression-severe PTSD (post-traumatic stress disorder) PTSD (post-traumatic stress disorder) Hep C w/o coma, chronic Surgical History History of surgery on arm Social History Social History Household Members: Other Housing: Homeless Do you presently have visiting nurse or other home services: No Alcohol intake: current Alcohol intake frequency: 3 or more drinks per day Alcohol type: beer and hard liquor Patient Tobacco Use Status: Current everyday Tobacco user Tobacco use type: Cigarette Cigarette Packs Per Day: 1 Cigarettes Per Day: 20.0 Years Smoked: 25 e-Cigarette/Vaping Use: Never Used Second Hand Smoke Exposure: Yes Substance Use Type: Other service: Yes Sexual orientation: Straight/Heterosexual Physical Exam Vital Signs: Vital Signs: Last Vital Signs Temp 97.2 F 08/22/23 21:23 Pulse 75 08/22/23 21:23 Resp 16 08/22/23 21:23 BP 134/90 H 08/22/23 21:23 Pulse Ox 99 08/22/23 21:23 O2 Del Method Room Air 08/22/23 21:23 BMI result Body Mass Index 25.8 Const: Other: Appearance: Alert. Oriented X3. No acute distress. Eyes: Pupils equal, round and reactive to light. ENT: Pharynx normal. Neck: Normal inspection. Neck supple. No lymph nodes noted. No crepitus CVS: Normal heart rate and rhythm. Pulses normal. Normal S1 and S2 Respiratory: No respiratory distress. Breath sounds normal. No Wheezing. No rales Abdomen: Soft and nontender. No rigidity. No distention. Skin: Skin warm and dry. Normal skin color. Normal skin turgor. Extremities: No lower extremity edema. No Lacerations. No Rash Neuro: Oriented X 3. No motor deficit. No sensory deficit. Moving all extremities. No slurred speech. CN 2 through 12 grossly intact Psych: calm, cooperative, flat affect Course Course Course Narrative: -all patient's labs pending -care team consult pending -physician observation started at 21:30 Medical Decision Making Differential Diagnosis Differential Diagnoses: The differential diagnosis associated with the presentation includes (Anxiety, depression, polysubstance abuse) Admission/Observation Consideration of admission/observation: Escalation of care including admission/observation considered (Patient is under observation in the emergency room waiting for the care team to be evaluated) Discharge Plan Discharge Clinical Impression: Polysubstance abuse, Suicidal ideation Prescriptions: No Action methadone [Methadone Intensol] 10 mg/mL Concentrate 110 mg PO DAILY famotidine 20 mg Tablet 20 mg PO DAILY Qty: 30 0RF folic acid 1 mg Tablet 1 mg PO DAILY Qty: 30 0RF thiamine mononitrate (vit B1) 100 mg Tablet 100 mg PO DAILY Qty: 30 0RF doxycycline monohydrate 100 mg capsule 100 mg PO BID Qty: 14 0RF cefuroxime axetil 500 mg tablet 500 mg PO BID Qty: 14 0RF ibuprofen 400 mg tablet 400 mg PO TID Qty: 30 0RF oxycodone 5 mg tablet 5 mg PO Q8H PRN (Reason: pain (scale score 7-10)) Qty: 14 0RF Rx Instructions: Partial Fill upon patient request.
[2023-08-22 22:23] LABS: Alanine Aminotransferase 39 U/L (0-40); Albumin Level 3.8 g/dL (3.5-5.0); Alkaline Phosphatase 83 U/L (39-117); Anion Gap 18 (12-20); Aspartate Amino Transferase 60 U/L (5-37); Bilirubin Total 0.4 mg/dL (0.0-1.0); Blood Urea Nitrogen 11 mg/dL (9-16); Calcium 8.9 mg/dL (8.4-10.2); Carbon Dioxide 20 mmol/L (22-29); Chloride 105 mmol/L (96-108); Creatinine Clr Calc Pharmacy 126.4; Estimated Glomerular Filt Rate > 60; Ethanol 213 mg/dL; Glucose Random 91 mg/dL (60-115); Magnesium 2.6 mg/dL (1.6-2.6); Sodium 139 mmol/L (135-145); Total Protein 8.8 g/dL (6.5-8.0)
[2023-08-23 06:16] VITALS: BP 107/53; PULSE 63; RESP 17; TEMP 36.8; O2SAT 96
--- NOTE | 2023-08-23 06:23 | PC.NURSE ---
Patient slept through the night, no distress observed/reported, behavior non concerning, asymptomatic of etoh withdrawal at this time may withdraw, Ativan 2 mg PO administered for comfort pending effect, VSS, labs completed/resulted, care consult ordered/pending evaluation, med rec completed/currently not on any medication, will continue to monitor.
--- NOTE | 2023-08-23 11:51 | HE.PHANOTE ---
RE METHADONE PT HAS NOT BEEN DOSED SINCE THEY LEFT HERE ON 08/19. POLICY RECOMMENDS REDUCING DOSE. PROVIDER DOES NOT WANT MERCEDES
[2023-08-23 12:00] VITALS: BP 132/79; PULSE 94; RESP 18; TEMP 36.6; O2SAT 98
--- NOTE | 2023-08-23 18:07 | PC.NURSE ---
notified via tiger text that patient would like ativan. Awaiting reply
[2023-08-24 03:23] VITALS: BP 115/52; PULSE 66; RESP 17; TEMP 36.8; O2SAT 100
--- NOTE | 2023-08-24 06:10 | PC.NURSE ---
Patient slept through the night, no distress observed/reported, Ativan 1 mg PO administered at 0317 for comfort with + effect, patient is asymptomatic of ETOH withdrawal, disposition is pending psych consult, labs completed/resulted, VSS, will continue to monitor.
--- NOTE | 2023-08-24 07:23 | PC.NURSE ---
patient appears to remain asleep at present respirations are even and unlabored patient appears in no distress
[2023-08-24 08:53] VITALS: BP 138/65; PULSE 73; RESP 17; TEMP 37; O2SAT 100
--- NOTE | 2023-08-24 11:11 | HE.PHANOTE ---
RE METHADONE METHADONE VERIFICATION RECEIVED. PT LAST OBTAINED METHADONE FROM [facility] ON 08/17/23 FOR A DOSE OF 110 MG MERCEDES
--- NOTE | 2023-08-24 12:05 | PC.NURSE ---
client came out of room, requested vanilla pudding and went back into his darkened room
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
--- NOTE | 2023-08-24 14:04 | MHC.CARE ---
Recovery Team met with pt who discussed the lack of availability of detox.? Recovery Team reports pt stated that he would shoot himself in the head or walk into traffic if he were to be discharged.? CARE Team spoke with Dr. Denton and it was agreed upon that due to his statements, Dr. Denton?s unfamiliarity with pt, and this data analyst report writer?s unfamiliarity with pt that he will be reassessed in the morning. Pt?s presentation does appear to be situational and for the secondary gain of housing. Pt will be reassessed in the morning.
--- NOTE | 2023-08-24 14:06 | MHC.RECOVRN ---
This health technical writer met with patient after patient cleared for SI by Care Team and Psychiatry. Per chart review, pt stable on 110mg MTD, last dose this a.m. 08/24/23. Pt asymptomatic for ETOH withdrawal. Pt is not a candidate for detox at this time due to those factors. This health technical writer met with patient to review recovery supports in the community, pt resting comfortably in bed. This health technical writer reviewed above information, pt reports I'm suicidal, I will walk out in traffic if I leave here or blow my brains out . CM aware.
--- NOTE | 2023-08-24 22:33 | PC.NURSE ---
Patient refusing vital signs at this time.
--- NOTE | 2023-08-25 03:30 | PC.NURSE ---
Addendum entered by Joel Dominguez RN 08/25/23 03:45: Entered in error under incorrect user. This RN assumed care at initial time of this note as follows: Assumed care of pt. Pt lying on stretcher, no acute medical or behavioral concerns at this time. Eyes closed, respirations even and unlabored. Continuing safety monitoring and plan of care. Original Note: Assumed care of pt. Pt lying on stretcher, no acute medical or behavioral concerns at this time. Eyes closed, respirations even and unlabored. Continuing safety monitoring and plan of care.
[2023-08-25 06:07] VITALS: BP 112/59; PULSE 50; RESP 18; TEMP 36.8; O2SAT 100
--- NOTE | 2023-08-25 07:20 | PC.NURSE ---
patient arose once already today, wearing monae in milieu which he has not yesterday, frequently...walked back tpo room and laid down again to sleep patient appears in no distress.
== END 2023-08-25 10:00 | disposition home or self-care (01) ==
PROVIDERS: Emergency Provider Emergency Medicine
DX: F19.10 Other psychoactive substance abuse, uncomplicated (principal); R45.851 Suicidal ideations; F33.9 Major depressive disorder, recurrent, unspecified; F43.10 Post-traumatic stress disorder, unspecified; B18.2 Chronic viral hepatitis C; F11.20 Opioid dependence, uncomplicated; F17.210 Nicotine dependence, cigarettes, uncomplicated; Z59.01 Sheltered homelessness; Z79.899 Other long term (current) drug therapy
CPT/HCPCS: 36415; 80053; 80307; 81003; 83735; 85025; 99284; 99285; S9485

== ENCOUNTER → 2023-08-22 21:45 | Outpatient (BNV) | payer OTHER, SELFPAY | PROVIDERS: Emergency Provider Emergency Medicine; Visit Provider Psychiatry & Neurology Psychiatry | DX: F19.10 Other psychoactive substance abuse, uncomplicated (principal) | CPT/HCPCS: 99282 ==

== ENCOUNTER 2023-09-20 18:49 | Inpatient (IN) | payer MEDICAID, OTHER, SELFPAY ==
--- NOTE | ~2023-09-20 | CT_ITS ---
EXAMINATION: CT FOREARM W IV CONTRAST CLINICAL INFORMATION: Rule out tenosynovitis COMPARISON: None available. TECHNIQUE: Contiguous axial contrast-enhanced CT scan images of the left forearm performed after the intravenous administration of 85 mL of Omnipaque 350. Sagittal and coronal reformatted images also obtained. This CT examination was performed using dose optimization techniques as appropriate, variously including the following: *Automated exposure control *Adjustment of mA and/or kV according to patient size (this includes techniques or standardized protocols for targeted exams where dose is matched to indication/reason for exam; i.e. extremities or head) *Use of iterative reconstruction technique DLP: 135 mGy-cm FINDINGS: The bone mineralization is normal. There is no fracture or bony erosive change. There is diffuse forearm skin thickening and subcutaneous infiltration. There is no fluid collection. CT/CT forearm LT w IV con IMPRESSION: Cutaneous thickening and subcutaneous infiltration likely cellulitis. No acute osseous abnormality. No collection identified.
--- NOTE | ~2023-09-20 | CT_ITS ---
EXAMINATION: CT HEAD WITHOUT CONTRAST CLINICAL INFORMATION: Possible fall. COMPARISON: None available. TECHNIQUE: Contiguous axial imaging was performed from the skull base to vertex without intravenous administration of contrast. This CT examination was performed using dose optimization techniques as appropriate, variously including the following: *Automated exposure control *Adjustment of mA and/or kV according to patient size (this includes techniques or standardized protocols for targeted exams where dose is matched to indication/reason for exam; i.e. extremities or head) *Use of iterative reconstruction technique DLP: 789 mGy-cm FINDINGS: There is no mass hemorrhage or cerebral edema. Ventricles and basal cisterns normal. Ventura-white matter differentiation is normal. Sinuses clear measurable Mastoid air cells clear. Soft tissues: Normal. Bone: Normal. No fracture. CT/CT head/brain wo IV con IMPRESSION: No acute intracranial pathology.
--- NOTE | ~2023-09-20 | CT_ITS ---
EXAMINATION: CT scan of the left forearm without contrast CLINICAL INFORMATION: Evaluate for tenosynovitis. Pain and soreness mid forearm. COMPARISON: No prior imaging of the left forearm. CT scan of the right forearm 08/17/2023. TECHNIQUE: CT scan of the left forearm was performed without contrast with reconstruction imaging performed at the acquisition workstation. FINDINGS: The exam is significantly limited because of beam hardening artifact given the positioning of the forearm over the lower abdomen/pelvis as well as because of the lack of intravenous contrast in addition to image degrading motion artifact. No bone joint or soft tissue abnormality detected. CT/CT forearm LT w IV con IMPRESSION: 1. Limited exam. 2. No bone joint or soft tissue abnormality detected.
--- NOTE | ~2023-09-20 | CT_ITS ---
EXAMINATION: CT ABDOMEN AND PELVIS WITH CONTRAST CLINICAL INFORMATION: Bilateral flank back pain lumbar pain. COMPARISON: Prior examinations including CT of the abdomen and pelvis July 2023 TECHNIQUE: Multidetector volumetric images were obtained from the superior aspect of the liver through the pubic symphysis following administration 90 mL of Omnipaque 350 intravenous contrast. Sagittal and coronal reformatted images were obtained on the technologist's workstation. Oral contrast: No This CT examination was performed using dose optimization techniques as appropriate, variously including the following: *Automated exposure control *Adjustment of mA and/or kV according to patient size (this includes techniques or standardized protocols for targeted exams where dose is matched to indication/reason for exam; i.e. extremities or head) *Use of iterative reconstruction technique DLP: 827 mGy-cm FINDINGS: The exam is limited by streak artifact given the positioning of the patient's left arm Overlying the anterior abdomen LUNG BASES: The visualized lung bases are unremarkable. LIVER, GALLBLADDER, AND BILIARY TREE: The liver is normal in size, shape, and attenuation. No focal hepatic lesion or biliary ductal dilatation is present. The gallbladder is unremarkable with no evidence of radiopaque gallstones, gallbladder wall thickening, or obvious pericholecystic inflammatory changes. PANCREAS: Unremarkable. SPLEEN: Unremarkable. ADRENAL GLANDS: Unremarkable. KIDNEYS AND URETERS: Cyst upper pole right kidney. No follow-up necessary no change.. Kidneys otherwise unremarkable. No hydronephrosis. No stones. BLADDER: Unremarkable. GASTROINTESTINAL TRACT: The small and large bowel are unremarkable. Appendix not visualized. However no inflammatory changes are noted in the right lower quadrant. ABDOMINAL WALL: No significant hernia is appreciated. LYMPH NODES: Normal. VASCULAR: Unremarkable. PELVIC VISCERA: Unremarkable. OSSEOUS STRUCTURES: Multilevel degenerative disc changes present with prominent degenerative disc changes at L4-L5 unchanged compared to prior.. Limbus vertebra noted along the anterior superior endplate of L5. Grade 1 retrolisthesis of the lateral 4 and L5 unchanged. Osteoarthritis of the left hip with subchondral cystic change present along the superior acetabulum unchanged. CT/CT abdomen pelvis w IV con IMPRESSION: 1. No acute abnormality. 2. Right renal cyst. No follow-up necessary. 3. Degenerative changes of the spine and left hip unchanged.. Superior endplate of L5 unchanged. Fleischner guidelines were followed.
--- NOTE | 2023-09-20 08:31 | ECG_ITS ---
Test Reason : OVERDOSE Blood Pressure : / mmHG Vent. Rate : 096 BPM Atrial Rate : 096 BPM P-R Int : 134 ms QRS Dur : 092 ms QT Int : 390 ms P-R-T Axes : 055 044 035 degrees QTc Int : 492 ms Normal sinus rhythm Incomplete right bundle branch block Abnormal ECG When compared with ECG of 17-AUG-2023 16:56, No significant change was found Referred By: Stacy Tejeda Electronically Signed By:PATRICK VEGA MD
[2023-09-20 19:01] VITALS: BP 113/43; PULSE 91; RESP 16; BMI 23.7
[2023-09-20 19:03] VITALS: BP 138/68; PULSE 102; O2SAT 96
[2023-09-20 19:32] LABS: MANUAL DIFF FLAG NO
[2023-09-20 19:35] LABS: Basophils Absolute Auto 0.1 X10*3/uL (0.0-0.2); Basophils Percent Auto 0.5 % (0-2); Eosinophils Absolute Auto 0.2 X10*3/uL (0.0-0.4); Eosinophils Percent Auto 1.4 % (0-4); Hematocrit 32.8 % (42.0-52.0); Hemoglobin 10.3 g/dl (14.0-18.0); Imm Gran Abs Auto 0.02 X10*3/uL (0.00-0.03); Imm Gran Pct Auto 0.2 % (0.0-0.4); Lymphocytes Absolute Auto 1.9 X10*3/uL (1.2-4.9); Lymphocytes Percent Auto 17.2 % (20-40); Mean Corpuscular HGB Conc 31.4 g/dl (31.0-36.0); Mean Corpuscular Hemoglobin 20.5 pg (27.0-33.0); Mean Corpuscular Volume 65.2 fL (80.0-98.0); Mean Platelet Volume 9.3 fL (9.4-12.4); Monocytes Absolute Auto 1.1 X10*3/uL (0.1-1.2); Monocytes Percent Auto 9.6 % (2-11); Neutrophils Percent Auto 71.1 % (45-73); Platelet Count 384 X10*3/uL (160-400); Red Blood Count 5.03 X10*6/uL (4.60-5.80); Red Cell Distribution Width 15.3 % (11.0-16.0); White Blood Count 11.3 X10*3/uL (4.8-10.8)
[2023-09-20 19:42] LABS: Prothrombin Time 12.1 SEC (11.1-13.3)
[2023-09-20] MEDS: 0.9 % Sodium Chloride 2,000 ML 999 ML IVCONT (19:43)
[2023-09-20 19:45] LABS: Lactic Acid 0.9 mmol/L (0.5-2.0)
[2023-09-20] MEDS: Piperacillin Sodium/Tazobactam 3.375 GM in 0.9 % Sodium Chloride 50 ML IV (19:46)
[2023-09-20 19:48] LABS: Ethanol 59 mg/dL
--- NOTE | 2023-09-20 19:49 | PC.NURSE ---
Addendum entered by Judie Escalera 09/20/23 21:47: pt changed into hospital gown upon arrival. placed on heart monitor nsr 98 bpm. Addendum entered by Judie Escalera 09/20/23 19:56: pt also refusing blood draws/iv to L. arm. pt axox4; states used fetanyl prior to arrival. sats remains 90-93% on RA; resp even and unlabored; arousable to name. Original Note: pt difficult stick; able to obtain first set of cultures with iv access established by Monik SUMMERS. unable to obtain 2nd blood cultures; Dr. Tejeda aware. iv abx and ivf infusing per Dr. Tejeda approval.
[2023-09-20 19:50] VITALS: BP 119/61; PULSE 94; RESP 14; O2SAT 92
[2023-09-20 19:50] LABS: Alanine Aminotransferase 59 U/L (0-40); Albumin Level 3.8 g/dL (3.5-5.0); Alkaline Phosphatase 71 U/L (39-117); Anion Gap 12 (12-20); Aspartate Amino Transferase 104 U/L (5-37); Bilirubin Direct 0.4 mg/dL (0.0-0.5); Bilirubin Total 0.7 mg/dL (0.0-1.0); Blood Urea Nitrogen 9 mg/dL (9-16); C Reactive Protein 1.24 mg/dL (< or = 0.50); Carbon Dioxide 25 mmol/L (22-29); Chloride 101 mmol/L (96-108); Creatinine Clr Calc Pharmacy 131.5; Estimated Glomerular Filt Rate > 60; Glucose Random 113 mg/dL (60-115); Potassium 3.4 mmol/L (3.3-5.1); Sodium 135 mmol/L (135-145); Total Protein 7.9 g/dL (6.5-8.0)
[2023-09-20 19:52] LABS: COVID-19 Test Negative (Negative); IDNOW Serial# 08D9AD1C
[2023-09-20 19:59] LABS: Troponin-I High Sensitivity < 2.7 ng/L (<3.5-35.0)
--- NOTE | 2023-09-20 20:03 | PC.NURSE ---
pt to ct scan at this time.
[2023-09-20 20:13] LABS: Erythrocyte Sedimentation Rate 18 MM/HR (0-15)
[2023-09-20] MEDS: vancomycin/NS 2,000 MG/500 ML PLAST..BAG 250 MG IV (20:36)
[2023-09-20] MEDS: LORazepam 2 MG/ML VIAL IVPUSH (20:43)
[2023-09-20] MEDS: diphenhydrAMINE HCL 50 MG/ML VIAL IVPUSH (20:43)
[2023-09-20 20:46] VITALS: BP 114/65; PULSE 99; RESP 22; O2SAT 93
--- NOTE | 2023-09-20 20:46 | PC.NURSE ---
pt unable to tolerate ct scan; pt medicated per mar. resp even an unlabored sats 93% RA.
--- NOTE | 2023-09-20 20:53 | ED.GENADULT ---
HPI - General Adult General Chief complaint: General Medical Stated complaint: ETOH,HALLUCINATIONS,L& R ARM INFECTION,KIDNEY PAIN Time Seen by Provider: 09/20/23 18:52 Source: patient and EMS Mode of arrival: EMS Limitations: other (Somnolent) History of Present Illness HPI narrative: Patient comes to the emergency room via ambulance complaining of significant pain to the left arm and also complaining of hallucinations. Patient admits that he has been using IV drugs, fentanyl prior to arrival. Patient has been hospitalized in the past for abscesses in the upper extremities. Patient is very somnolent, seems that he recently used opiates. Poor historian Related Data Home Medications Medication Instructions Recorded Confirmed Methadone Intensol 110 mg PO DAILY 08/24/23 08/24/23 Previous Rx's Medication Instructions Recorded ibuprofen 800 mg tablet 800 mg PO Q6H PRN fever or pain 09/21/23 #20 tabs sulfamethoxazole 800 1 tab PO Q12H #20 tabs 09/21/23 mg-trimethoprim 160 mg tablet (Bactrim DS) Allergies Allergy/AdvReac Type Severity Reaction Status Date / Time fish derived [FISH] Allergy Unknown UNKNOWN - Verified 03/01/23 11:41 NOT ANAPHYLAXIS PER PATIENT trazodone AdvReac Severe priapr Verified 05/18/22 05:35 Review of Systems Review of Systems: Constitutional : Denies fever chills ENT/Mouth : No Hearing loss, No Ear Pain, No Nasal Congestion, No Sinus Pain, No Hoarseness, No sore throat, No Rhinorrhea, No Swallowing Difficulty Eyes: No Eye Pain, No Swelling, No Redness, No Foreign Body, No Discharge, No Vision Changes Cardiovascular : No Chest Pain, No SOB, No Dyspnea on Exertion, No Orthopnea, No Edema, No Palpitations Respiratory : No Cough, No Sputum, No Wheezing, No Smoke Exposure, No Dyspnea Gastrointestinal : No Nausea, No Vomiting, No Diarrhea, No Constipation, No abdominal Pain, No Hematochezia, No Melena Genitourinary : no irregular bleeding, No Dysuria, No Urinary Frequency, No Hematuria, No Urinary Incontinence, No Urgency, No Flank Pain, No Urinary Flow Changes, No Hesitancy Musculoskeletal : No joint pain, No Myalgias, No Joint Swelling Skin : Complaining of an abscess to the left upper extremity, very tender to touch Neuro : No Weakness, No Numbness, No Paresthesias, No Loss of Consciousness, No Dizziness, No Headache Psych : No Anxiety/Panic, No Depression, No SI/HI/AH/VH, admits to drug use, patient states he has been hallucinating, patient did not describe Heme/Lymph: No Bruising, No Bleeding,No Lymphadenopathy Endocrine : No Polyuria, No Polydipsia, No Temperature Intolerance PMF Past Medical History Medical History IVDU (intravenous drug user) Alcohol dependence Recurrent major depression-severe PTSD (post-traumatic stress disorder) PTSD (post-traumatic stress disorder) Hep C w/o coma, chronic Surgical History History of surgery on arm Social History Social History Household Members: Other Housing: Homeless Do you presently have visiting nurse or other home services: No Alcohol intake: current Alcohol intake frequency: 3 or more drinks per day Alcohol type: hard liquor Patient Tobacco Use Status: Current everyday Tobacco user Tobacco use type: Cigarette Cigarette Packs Per Day: 1 Cigarettes Per Day: 20.0 Years Smoked: 25 Smoked in Last 30 Days: Yes e-Cigarette/Vaping Use: Never Used Second Hand Smoke Exposure: Yes Use of substances other than those prescribed or required for medical reasons: Yes Substance Use Type: Crack/Cocaine and IV Drugs Substance Use Type Other:: Fetanyl Substance Use Frequency: Daily Last Used Substance: Just Prior to Admission Any prior treatment program specific to substance use: No Advance Directives: No Advance Directives Information Provided: Yes service: Yes Sexual orientation: Straight/Heterosexual Physical Exam ED Vital Signs: Vital Signs - 24 hr 09/20/23 19:01 09/20/23 19:50 09/20/23 20:46 Temperature Pulse Rate 91 94 99 Respiratory Rate 16 14 22 H Blood Pressure 113/43 L 119/61 114/65 Pulse Oximetry 92 93 Oxygen Delivery Method Room Air Room Air Room Air Oxygen Flow Rate 09/20/23 23:23 Temperature 99.8 F Pulse Rate 93 Respiratory Rate 16 Blood Pressure Pulse Oximetry 98 Oxygen Delivery Method Nasal Cannula Oxygen Flow Rate 2 BMI result Body Mass Index 23.7 Const Other: Appearance: Alert. Very somnolent, easily arousable, patient seems to be intoxicated versus high on opiates Eyes: Pupils equal, round and reactive to light. ENT: Pharynx normal. Neck: Normal inspection. Neck supple. No lymph nodes noted. No crepitus CVS: Normal heart rate and rhythm. Pulses normal. Normal S1 and S2 Respiratory: No respiratory distress. Breath sounds normal. No Wheezing. No rales Abdomen: Soft and nontender. No rigidity. No distention. Skin: Skin warm and dry. Normal skin color. Normal skin turgor. Extremities: No lower extremity edema. Patient has significant tenderness to palpation in the left extremity, states that he cannot open and close his hand due to pain. Neuro: Oriented X 3. No motor deficit. No sensory deficit. Moving all extremities. No slurred speech. CN 2 through 12 grossly intact Psych: calm, somnolent Course Course Course Narrative: -patient has no fever, normal blood pressure. At this time, we will start empiric IV fluids, vancomycin and Zosyn, CT scan of the arm pending to rule out tenosynovitis. -it is unclear if the patient had any head trauma, head CT pending. 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 It was unable to be completed. I spoke with the patient when he was back in the room, patient agreeable to take Ativan IV and Benadryl to help him stay still doing the CT scan in during the incision and drainage of the abscess in the arm. For the CT scan of the arm, patient was able to lay still without any additional medication. However, for the incision and drainage, patient requested a bit more of Ativan to help him stay still and be more somnolent during the procedure since it is very painful -patient was given 2 mg of Ativan. -incision and drainage was performed, bedside ultrasound shows a small abscess, approximately 2 cm deep. Incision and drainage was performed, a moderate amount of pus was expressed, packing in place. -interpretation of labs: White blood cell count slightly elevated, chemistry unremarkable, ESR and CRP and minimally elevated, lactic acid is normal, urine negative for UTI, U tox positive for opiates, fentanyl and cocaine -interpretation of CT scan of the head: No intracranial bleed, in my interpretation of CT scan of the abdomen pelvis: No ureterolithiasis. -CT scan of the left forearm pending. Of note, the 1st CT scan of the forearm did not have enough contrast, not diagnostic. Had to be repeated with contrast specific for the study. -patient already was treated with IV fluids, vancomycin and Zosyn -if the CT scan of the abdomen does not show tenosynovitis, patient can be discharged home with antibiotics, patient is to return in 24 to 48 hours for wound check and packing removal -sign-out given to Dr. Curtis Medications Administered Discontinued Medications Generic Name Dose Route Start Last Admin Trade Name Freq PRN Reason Stop Dose Admin Diphenhydramine HCl 50 mg 09/20/23 20:32 09/20/23 20:43 Diphenhydramine Hcl 50 Mg/Ml Vial IVPUSH 09/20/23 20:33 50 mg ONCE ONE Administration Sodium Chloride 2,000 mls @ 999 mls/hr 09/20/23 18:59 09/20/23 19:43 Ns IVCONT 09/20/23 20:59 999 mls/hr .Q2H1M ONE Administration Piperacillin Sod/Tazobactam 50 mls @ 100 mls/hr 09/20/23 18:59 09/20/23 20:33 Sod 3.375 gm/ Sodium Chloride IV 09/20/23 19:28 Infused ONCE ONE Infusion Vancomycin HCl 2,000 mg in 500 mls @ 250 mls/hr 09/20/23 18:59 09/20/23 23:57 Vancomycin/Ns IV 09/20/23 20:58 Infused ONCE ONE Infusion Iohexol 100 ml 09/20/23 21:29 09/20/23 21:29 Iohexol 350 Mg/Ml 100 Ml Infus..Btl IV 09/20/23 21:30 90 ml ONCE ONE Administration Iohexol 85 ml 09/21/23 01:36 09/21/23 01:37 Iohexol 350 Mg/Ml 100 Ml Infus..Btl IV 09/21/23 01:37 85 ml ONCE ONE Administration Lorazepam 2 mg 09/20/23 20:32 09/20/23 20:43 Lorazepam 2 Mg/Ml Vial IVPUSH 09/20/23 20:33 2 mg ONCE ONE Administration Lorazepam 2 mg 09/21/23 01:07 09/21/23 01:45 Lorazepam 2 Mg/Ml Vial IVPUSH 09/21/23 01:08 2 mg ONCE ONE Administration Medical Decision Making Differential Diagnosis Differential Diagnoses: The differential diagnosis associated with the presentation includes (Abscess, cellulitis, tenosynovitis, polysubstance abuse) Admission/Observation Consideration of admission/observation: Escalation of care including admission/observation considered (Given the patient's initial presentation, admission was considered.) Lab Data MDM Lab Attestation statement: I reviewed the patient's lab results. 09/20/23 19:27 09/20/23 19:27 Labs: Lab Results 09/20/23 09/21/23 Range/Units 19:27 01:28 WBC 11.3 H (4.8-10.8) X10*3/uL RBC 5.03 (4.60-5.80) X10*6/uL Hgb 10.3 L (14.0-18.0) g/dl Hct 32.8 L (42.0-52.0) % MCV 65.2 L (80.0-98.0) fL MCH 20.5 L (27.0-33.0) pg MCHC 31.4 (31.0-36.0) g/dl RDW 15.3 (11.0-16.0) % Plt Count 384 (160-400) X10*3/uL MPV 9.3 L (9.4-12.4) fL Immature Gran % (Auto) 0.2 (0.0-0.4) % Neut % (Auto) 71.1 (45-73) % Lymph % (Auto) 17.2 L (20-40) % [place] % (Auto) 9.6 (2-11) % Eos % (Auto) 1.4 (0-4) % Baso % (Auto) 0.5 (0-2) % Lymph # (Auto) 1.9 (1.2-4.9) X10*3/uL [place] # (Auto) 1.1 (0.1-1.2) X10*3/uL Eos # (Auto) 0.2 (0.0-0.4) X10*3/uL Baso # (Auto) 0.1 (0.0-0.2) X10*3/uL Abs Immat Gran (auto) 0.02 (0.00-0.03) X10*3/uL Absolute Neuts (auto) 8.0 (2.0-8.3) x10*3/uL Absolute Nucleated RBC 0.000 (0.0-0.012) X10*3/uL Nucleated RBC % (auto) 0.0 (0.0-0.2) /100WBC ESR 18 H (0-15) MM/HR PT 12.1 (11.1-13.3) SEC INR 1.0 (0.9-1.1) Sodium 135 (135-145) mmol/L Potassium 3.4 (3.3-5.1) mmol/L Chloride 101 (96-108) mmol/L Carbon Dioxide 25 (22-29) mmol/L Anion Gap 12 (12-20) BUN 9 (9-16) mg/dL Creatinine 0.74 (0.5-1.4) mg/dL Estim Creat Clear Calc 131.5 Estimated GFR > 60 Random Glucose 113 (60-115) mg/dL Lactic Acid 0.9 (0.5-2.0) mmol/L Calcium 9.0 (8.4-10.2) mg/dL Magnesium 2.0 (1.6-2.6) mg/dL Total Bilirubin 0.7 (0.0-1.0) mg/dL Direct Bilirubin 0.4 (0.0-0.5) mg/dL AST 104 H (5-37) U/L ALT 59 H (0-40) U/L Alkaline Phosphatase 71 (39-117) U/L Troponin I High Sens < 2.7 (<3.5-35.0) ng/L C-Reactive Protein 1.24 H (< or = 0.50) mg/dL Total Protein 7.9 (6.5-8.0) g/dL Albumin 3.8 (3.5-5.0) g/dL Urine Color Yellow Urine Appearance Clear Urine pH 6.0 (5.0-9.0) Ur Specific [place] >= 1.030 H (1.005-1.025) Urine Protein Negative (Neg-Trace) mg/dL Urine Glucose (UA) Negative (Negative) mg/dL Urine Ketones Negative (Negative) mg/dL Urine Blood Negative (Negative) Urine Nitrite Negative (Negative) Ur Leukocyte Esterase Negative (Negative) Urine Opiates Screen POSITIVE H (Not Detect) Urine Fentanyl Screen POSITIVE H (Not Detect) Ur Barbiturates Screen Not Detected (Not Detect) Ur Phencyclidine Scrn Not Detected (Not Detect) Ur Amphetamines Screen Not Detected (Not Detect) U Benzodiazepines Scrn Not Detected (Not Detect) Urine Cocaine Screen POSITIVE H (Not Detect) U Marijuana (THC) Screen Not Detected (Not Detect) Ethyl Alcohol 59 mg/dL COVID-19 (ELOY) Negative (Negative) COVID-19 Clin Com See Note Independent Interpretation I performed an independent interpretation of an: CT Scan Radiology Impression Discussion of test interpretation with radiology: I have reviewed the radiologist's reading. Radiologist Impression: CT scan of the abdomen pelvis: IMPRESSION: 1. No acute abnormality. 2. Right renal cyst. No follow-up necessary. 3. Degenerative changes of the spine and left hip unchanged.. CT scan of the head: FINDINGS: There is no mass hemorrhage or cerebral edema. Ventricles and basal cisterns normal. [place]-white matter differentiation is normal. Sinuses clear measurable Mastoid air cells clear. Soft tissues: Normal. Bone: Normal. No fracture. CT/CT head/brain wo IV con IMPRESSION: No acute intracranial pathology. Critical Care Time Critical Care Time Critical Care Time: Yes Total Critical Care Time: 90 Attestation: I have personally provided critical care time. Time includes review of lab data, radiology results, discussion with consultants, and monitoring for potential decompensation. Intervention performed as documented. Discharge Plan Discharge Clinical Impression: Cellulitis and abscess of other specified site, Polysubstance abuse Patient Disposition: Still a Patient Instructions: Abscess (ED), Polysubstance Abuse (ED) Additional Instructions: You need to return in 36-48 hours for a wound check and packing removal. Please follow-up with your primary care physician tomorrow. If you have any worsening or new symptoms, please return to the emergency room or call 911 Prescriptions: New sulfamethoxazole-trimethoprim [Bactrim DS] 800-160 mg tablet 1 tab PO Q12H Qty: 20 0RF ibuprofen 800 mg tablet 800 mg PO Q6H PRN (Reason: fever or pain) Qty: 20 0RF No Action Methadone Intensol 110 mg PO DAILY
--- NOTE | 2023-09-20 21:02 | PC.NURSE ---
sats 88-89% on RA; placed on 2L NC; sats 97%. pt to ct scan at this time.
[2023-09-20] MEDS: iohexoL 350 MG/ML 100 ML INFUS..BTL IV (21:29)
--- NOTE | 2023-09-20 21:50 | PC.NURSE ---
delayed infusion of fluids as iv is positional and was not infusing during cat scans.
[2023-09-20 23:23] VITALS: PULSE 93; RESP 16; TEMP 37.7; O2SAT 98
--- NOTE | 2023-09-20 23:25 | PC.NURSE ---
resp even and unlabored. linen changed as pt had urinary incontinence. repositioned pt to left side as refusing to turn on back. unable to obtain bp d/t positioning. ivf and abx infusing.
--- NOTE | 2023-09-21 00:29 | PC.NURSE ---
lidocaine 2% unavailable in pyxis; this rn override lidocaine 1% 30mL per Dr. Tejeda verbal order. given to Dr. Tejeda for administration by
[2023-09-21 01:36] LABS: Appearance Urine Clear; Color Urine Yellow; Glucose Urine UA Negative (Negative); Leukocyte Esterase Urine Negative (Negative); Nitrite Urine Negative (Negative); Specific Gravity - Urine >= 1.030 (1.005-1.025); Urine Blood Negative (Negative); Urine Ketones Negative (Negative); Urine Protein Negative (Neg-Trace)
[2023-09-21] MEDS: iohexoL 350 MG/ML 100 ML INFUS..BTL 85 ML IV (01:37)
--- NOTE | 2023-09-21 01:37 | PC.NURSE ---
ativan iv ordered per Dr. Tejeda as pt was being uncooperative in ct scan initially. however pt able to follow commands and keep L arm above head for imaging. medication not given.
--- NOTE | 2023-09-21 01:39 | PC.NURSE ---
pt back in room from ct scan; sleeping in stretcher. resp even and unlabored nsr on monitor 94 bpm. pt arousable to name.
[2023-09-21] MEDS: LORazepam 2 MG/ML VIAL IVPUSH (01:45)
[2023-09-21 01:48] LABS: Amphetamine Screen Urine Not Detected (Not Detect); Barbiturates, Urine Not Detected (Not Detect); Benzodiazepines Screen Urine Not Detected (Not Detect); Cannabinoid Screen Urine Not Detected (Not Detect); Cocaine Screen Urine POSITIVE (Not Detect); Fentanyl, urine POSITIVE (Not Detect); Opiate Screen Urine POSITIVE (Not Detect); Phencyclidine Screen Urine Not Detected (Not Detect)
--- NOTE | 2023-09-21 01:55 | PC.NURSE ---
pt requested ativan to be given at time of I&D as pt unable to tolerate procedure. Dr. Tejeda at bedside for I&D.
--- NOTE | 2023-09-21 02:39 | MHC.EDTECH ---
Patient change into hospital attire all belonging are in decon
--- NOTE | 2023-09-21 02:45 | PC.NURSE ---
previously denied pt belongings to decon by chargeback analyst Karen. upon chargeback analyst Karen approval pt belongings taken to decon by security at this time.
--- NOTE | 2023-09-21 03:15 | PC.NURSE ---
this RN awoke pt to provide discharge instructions. pt previously denied si/hi to this RN however stating you can't discharge a suicidal patient to this RN at this time. nerve specialist Karen and Dr. Curtis aware. Davian PCT at bedside at this time to record changer tester pt. pt made aware of plan to see care team in AM by special agent in charge. notified special agent in charge for need for sitter. pt to be moved rooms by Jovita SUMMERS.
[2023-09-21 03:19] VITALS: BP 136/68; PULSE 99; TEMP 36.6; O2SAT 99
--- NOTE | 2023-09-21 03:35 | PC.NURSE ---
this rn assumed care of pt @ 0335. pt placed in 22h pt reported to previous nurse that pt is suicidal. 1:[address] . pt noted to resting positioned on back at this time
--- NOTE | 2023-09-21 03:39 | MHC.EDTECH ---
THIS PCT JUST ASSUMED CARE OF PATIENT ,RN PAGE SAID PROVIDER SAID NO NEED TO GET 2ND SETS OF BLOOD CULTURE .
[2023-09-21 03:49] VITALS: RESP 16
[2023-09-21] MEDS: Lidocaine HCl 1 % 20 ML VIAL 30 ML INFILTRATI (04:40)
--- NOTE | 2023-09-21 06:19 | PC.NURSE ---
joana heart made this rn aware of oral temp of 100.9. this rn made dr mchugh aware of temp no new orders at this time
[2023-09-21 06:20] VITALS: BP 145/79; PULSE 94; RESP 16; TEMP 38.3; O2SAT 94
[2023-09-21 09:51] VITALS: BP 166/81; PULSE 93; RESP 16; TEMP 37.6; O2SAT 93
--- NOTE | 2023-09-21 10:15 | MHC.RECOVSUP ---
Addendum entered by Milind Amador 09/21/23 13:16: ATS bed search has been exhausted at this time. Original Note: Met with pt in ED22H who is here for pain in his arm. Pt is a poor historian and reports drinking 1 pint a day and using over 1 bundle of Fentanyl intravenously a day with a history of OD 7 times with the most recent in 2012. Pt is interested in ATS at this time and a bed search is in process.
[2023-09-21] MEDS: methADONE HCl 20 MG/2 ML ORAL.CONC 30 MG PO (11:23)
--- NOTE | 2023-09-21 11:25 | PC.NURSE ---
HAS SLEPT ALL MORNING, MEDICATED WITH METHADONE AND BACK TO SLEEP, DENIES SI, WANTS DETOX
--- NOTE | 2023-09-21 15:00 | PC.NURSE ---
pt stated that he was suicidal again after being told that there wasn't a detox bed, CARE team to bedside for re eval, states he's conditionally suicidal. states that if he's discharged he would kill himself
[2023-09-21] MEDS: Sulfamethox/Trimeth 800/160 TABLET 1 TAB PO (15:43)
--- NOTE | 2023-09-21 15:46 | PC.NURSE ---
Mark given bactrim PO
[2023-09-21 17:39] VITALS: RESP 18
--- NOTE | 2023-09-21 18:17 | PC.NURSE ---
Called [facility] and spoke with Praneeth. Last dose of Methadone was on 08/17/23 at 110mg's. Mark acknowledged afterwards that he has not been receiving Methadone since that time.
--- NOTE | 2023-09-21 18:36 | PHA.MEDREC ---
Pharmacy Consult ? Medication Reconciliation Pharmacy has reviewed the medication reconciliation completed by
--- NOTE | 2023-09-21 20:58 | PC.NURSE ---
I assumed care of the pt at 1900. Pt is asleep in bed at this time.
[2023-09-22 05:11] VITALS: BP 110/70; PULSE 82; RESP 20; TEMP 37.2; O2SAT 96
[2023-09-22 07:25] VITALS: RESP 15
--- NOTE | 2023-09-22 07:51 | PC.NURSE ---
PT IS SLEEPING RESP EVEN AND UNLABORED. BREAKFAST AT BEDSIDE.
[2023-09-22 10:00] VITALS: BP 122/69; PULSE 95; RESP 19; TEMP 36.6; O2SAT 98
[2023-09-22] MEDS: Sulfamethox/Trimeth 800/160 TABLET 1 TAB PO ×2 (10:01→19:29)
[2023-09-22] MEDS: methADONE HCl 20 MG/2 ML ORAL.CONC 45 MG PO (10:01)
--- NOTE | 2023-09-22 13:11 | PC.NURSE ---
prior dressing covering wick had slid down patients arm, t/w removed and changed to new dressing, used some saline to cleanse area lightly.
[2023-09-22] MEDS: Cyclobenzaprine HCl 10 MG TABLET PO (14:19)
[2023-09-22] MEDS: hydrOXYzine HCL 50 MG TABLET PO (14:19)
[2023-09-22 16:00] VITALS: PULSE 89
[2023-09-22 17:08] VITALS: BP 137/82; PULSE 89; RESP 16; TEMP 36.2; O2SAT 97; BMI 22.2
[2023-09-22] MEDS: LORazepam 1 MG TABLET PO (19:42)
[2023-09-22] MEDS: cloNIDine HCL 0.1 MG TABLET PO (19:42)
[2023-09-22] MEDS: hydrOXYzine HCL 25 MG TABLET PO (19:43)
--- NOTE | 2023-09-22 21:07 | PC.ADMIT ---
Pt is a 43 year old male admitted for safety and containment secondary to Pt verbalizing vague SI. Pt refused to d/c from the ED saying you can't discharge a suicidal patient. Pt is alert and oriented x3, VSS, Tox screen positive for cocaine, Fentanyl, ETOH and opioids. Pt appears disheveled, left right wrist abscess dressed. Skin check and policy change clerk completed, Pt appeared tired and sleepy during admission. He refused to sign for release, Pt has no established providers, he is homeless and needs help establishing providers. Pt refused to take flu shot. Pt insight, impulse and judgment are poor as evidenced by patients presentation. Pt denies all psych symptoms. Pt reports that he is hopeless, depression is 8/10, anxiety is 7/10. Pt lack adequate support system. Pt is currently lying in bed sleeping, respirations are even and unlabored. No sign of distress noted. Admission orders obtained.
[2023-09-23 08:00] VITALS: BP 113/55; PULSE 53; RESP 16; TEMP 36.5; O2SAT 100
[2023-09-23] MEDS: Thiamine HCL 100 MG TABLET PO (08:46)
[2023-09-23] MEDS: Sulfamethox/Trimeth 800/160 TABLET 1 TAB PO ×2 (08:46→19:54)
[2023-09-23] MEDS: Multivitamin TABLET 1 TAB PO (08:46)
[2023-09-23] MEDS: Folic Acid 1 MG TABLET PO (08:46)
[2023-09-23 08:47] LABS: Estimated Average Glucose 91 mg/dL; Hemoglobin A1c % 4.8 % (<6.0)
[2023-09-23 09:02] LABS: Cholesterol 154 mg/dL (<200); HDL Cholesterol 49 mg/dL (>40); LDL Cholesterol Calculated 93 mg/dL (<100); Magnesium 2.3 mg/dL (1.6-2.6); Triglycerides 64 mg/dL (<150)
[2023-09-23] MEDS: LORazepam 1 MG TABLET 2 MG PO ×3 (09:16→19:53)
[2023-09-23] MEDS: cloNIDine HCL 0.1 MG TABLET PO ×2 (09:16→19:52)
[2023-09-23] MEDS: hydrOXYzine HCL 25 MG TABLET PO ×2 (09:16→19:54)
[2023-09-23] MEDS: methADONE HCl 20 MG/2 ML ORAL.CONC 50 MG PO (09:18)
[2023-09-23 09:23] LABS: Free T4 (Free Thyroxine) 0.76 ng/dL (0.71-1.85); Thyroid Stimulating Hormone 0.62 uIU/mL (0.32-4.0)
[2023-09-23 09:27] LABS: Vitamin B12 350 pg/mL (200-900)
[2023-09-23] MEDS: Nicotine 21 MG PATCH.TD24 TRANSDERMA (12:02)
[2023-09-23 16:00] VITALS: PULSE 91
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
[2023-09-23 19:40] VITALS: BP 141/88; PULSE 91; TEMP 36.6
[2023-09-23] MEDS: Acetaminophen 325 MG TABLET 650 MG PO (19:55)
[2023-09-24 07:00] VITALS: BMI 21.8
[2023-09-24] MEDS: Folic Acid 1 MG TABLET PO (08:44)
[2023-09-24] MEDS: Nicotine 21 MG PATCH.TD24 TRANSDERMA (08:44)
[2023-09-24] MEDS: Sulfamethox/Trimeth 800/160 TABLET 1 TAB PO ×2 (08:44→20:03)
[2023-09-24] MEDS: Thiamine HCL 100 MG TABLET PO (08:44)
[2023-09-24] MEDS: methADONE HCl 20 MG/2 ML ORAL.CONC 50 MG PO (08:44)
[2023-09-24] MEDS: Multivitamin TABLET 1 TAB PO (08:44)
[2023-09-24] MEDS: LORazepam 1 MG TABLET 2 MG PO ×3 (08:44→17:17)
[2023-09-24 09:09] VITALS: BP 102/54; PULSE 93; RESP 16; TEMP 36.2; O2SAT 97
--- NOTE | 2023-09-24 14:30 | HO.WOUND ---
Wound Consult: Initial 43yr old male admitted to [facility] on? 09/22/23 - See progress notes and H&P for detailed history. Consult received for Left forearm wound s/p I&D in Emergency room. See chart review for history and details. Left Forearm Etiology: S/P I&D site / Presumed Abscess Measurements: 1cm x 0.2 x 0.4cm - pt refused probing to determine undermining Wound Bed: observed red moist woune bed Drainage / Odor: serosang drainage - no odor no purulence noted Edges: ?Nonadherent [place] wound: ? induration and mild warmth noted along with blanchable erythema no fluctance noted Pain: Pt reports tenderness and pain Goals of Treatment: ? Lightly pack with Durafiber AG for moisture mangagement and antimicrobial properties. Recommendations: 1. Left Forearm - Elevate Limb on pillows - Cleanse with NS, Pat dry. Apply skin prep to periwound. Cut strip of Durafiber AG lightly pack into wound bed - be sure to leave a wick for easy removal. Cover with foam dressing. Change everyother day or PRN (after a shower is dressing gets wet). Re-consult wound care Nurse for wound deterioration or wound changes.
--- NOTE | 2023-09-24 16:16 | P.PNPSI_ITS ---
Subjective Subjective Date of Service: 09/24/23 Reason For Visit: ptsd, major depression, polysubstance use disorder Subjective Notes: Conditional Voluntary Healthcare Proxy: No Guardianship: No Medical Problems Affecting Mental Status: No Interim History: I am convinced I am dying. I have pain all over- low to mid back, ribs, arms, legs, a headache, no energy. Very worried about how he is feeling physically. Review of ER testing- CAT/Ultra/Diagnostics. Will order for 09/26 as pt requests. Will add other tests to this base to address sx. When asked how we can help while here, I will need to get back to you on that when I find out if I am going to live. Medication Compliance: Yes Side effects from medications: No Attending Groups: No Review of Systems Acute medical concerns: No Medical Review of Systems: unchanged Mental Status Exam Mental Status Exam Patient Appearance: Fatigued Patient Orientation: Person, Place, Time and Situation Level of Consciousness: Drowsy and Sedated Patient Behavior: Sedated and Poor Eye Contact Mood Description: Flat Affect Description: Flat Patient Cognition Impaired: No Ability to Follow Directions: Fair Speech Pattern: Spontaneous Speech Memory Description: Episodic Impaired Hallucinations: None Delusions: Not Present Thought Process: Intact Thought Content: positive for Intact Judgement: Good Diagnostics Vital Signs (24Hr): Vital Signs - 24 hr 09/23/23 19:40 09/24/23 09:09 Temperature 97.9 F 97.2 F Pulse Rate 91 93 Respiratory Rate 16 Blood Pressure 141/88 H 102/54 L Pulse Oximetry 97 Oxygen Delivery Method Room Air BMI result Body Mass Index 21.8 Labs 09/20/23 19:27 09/20/23 19:27 Labs: Laboratory Results - last 48 hr 09/23/23 08:17 Estimat Average Glucose 91 Hemoglobin A1c % 4.8 Magnesium 2.3 Triglycerides 64 Cholesterol 154 LDL Cholesterol, Calc 93 HDL Cholesterol 49 Vitamin B12 350 Folate 14.0 TSH 0.62 Free T4 0.76 Imaging Radiology Impressions: ITS Impressions Head CT 09/20/23 20:25 IMPRESSION: No acute intracranial pathology. Abdomen/Pelvis CT 09/20/23 21:14 IMPRESSION: 1. No acute abnormality. 2. Right renal cyst. No follow-up necessary. 3. Degenerative changes of the spine and left hip unchanged.. Superior endplate of L5 unchanged. Fleischner guidelines were followed. Forearm CT 09/20/23 21:14 IMPRESSION: 1. Limited exam. 2. No bone joint or soft tissue abnormality detected. Forearm CT 09/21/23 01:36 IMPRESSION: Cutaneous thickening and subcutaneous infiltration likely cellulitis. No acute osseous abnormality. No collection identified. Medications Medications Current Medications Acetaminophen (Acetaminophen 325 Mg Tablet) 650 mg PO Q6H PRN PRN Reason: Headache/Pain Mild Scale (1-3) Last Admin: 09/23/23 19:55 Dose: 650 mg Al Hydroxide/Mg Hydroxide (Magnesium Hydrox/Alum Hydrox 30 Ml Oral.Susp) 30 ml PO Q6H PRN PRN Reason: Heartburn/Nausea Clonidine HCl (Clonidine Hcl 0.1 Mg Tablet) 0.1 mg PO TID PRN; Protocol PRN Reason: withdrawal symptoms Last Admin: 09/23/23 19:52 Dose: 0.1 mg Folic Acid (Folic Acid 1 Mg Tablet) 1 mg PO DAILY [facility] Last Admin: 09/24/23 08:44 Dose: 1 mg Hydroxyzine HCl (Hydroxyzine Hcl 25 Mg Tablet) 25 mg PO Q6H PRN PRN Reason: Anxiety Last Admin: 09/23/23 19:54 Dose: 25 mg Lorazepam (Lorazepam 1 Mg Tablet) 1 mg PO Q2H PRN PRN Reason: ciwa 6-10 Last Admin: 09/22/23 19:42 Dose: 1 mg Lorazepam (Lorazepam 1 Mg Tablet) 2 mg PO Q2H PRN PRN Reason: withdrawal Last Admin: 09/24/23 12:03 Dose: 2 mg Magnesium Hydroxide (Milk Of Magnesia 30 Ml Oral.Susp) 30 ml PO DAILY PRN PRN Reason: Constipation Multivitamins/Vitamin C (Multivitamin Tablet) 1 tab PO DAILY [facility] Last Admin: 09/24/23 08:44 Dose: 1 tab Nicotine (Nicotine 21 Mg Patch.Td24) 21 mg TRANSDERMA DAILY [facility] Last Admin: 09/24/23 08:44 Dose: 21 mg Nicotine Polacrilex (Nicotine Polacrilex Lozenge 4 Mg Lozenge) 4 mg BUCCAL Q2H PRN PRN Reason: Nicotine Cravings Thiamine HCl (Thiamine Hcl 100 Mg Tablet) 100 mg PO DAILY [facility] Last Admin: 09/24/23 08:44 Dose: 100 mg Trimethoprim/Sulfamethoxazole (Sulfamethox/Trimeth 800/160 Tablet) 1 tab PO BID [facility] Last Admin: 09/24/23 08:44 Dose: 1 tab Allergies Allergies Allergy/AdvReac Type Severity Reaction Status Date / Time fish derived [FISH] Allergy Unknown UNKNOWN - Verified 03/01/23 11:41 NOT ANAPHYLAXIS PER PATIENT trazodone AdvReac Severe priapr Verified 05/18/22 05:35 Assessment & Plan Assessment & Plan (1) Recurrent major depression-severe: Status: Acute Code(s): F33.2 - Major depressive disorder, recurrent severe without psychotic features (2) PTSD (post-traumatic stress disorder): Status: Acute Code(s): F43.10 - Post-traumatic stress disorder, unspecified (3) Polysubstance abuse: Status: Acute Code(s): F19.10 - Other psychoactive substance abuse, uncomplicated (4) Cellulitis and abscess of other specified site: Status: Acute Code(s): L03.818 - Cellulitis of other sites; L02.818 - Cutaneous abscess of other sites Plan 43 yo male, to ER s/p injecting fentanyl with resulting cellulitis. Pt had I&D in the ER then verbalized SI if we did not send him to detox. Plan: Monitor for withdrawal Aftercare planning Collateral contact ?CSS admission 09/24/23 Continues to have withdrawal. Inez Yepez RN from wound care met with pt and re-evaluated and treated his wound. Labs 09/26. Patient educated on: medication risk/benefits, therapeutic strategies and medical condition Informed Consent: understands Reason for continued inpatient stay Substantial Risk for: rapid decompensation Time Spent With Patient Time: Total time managing care of this patient today ____ minutes.
[2023-09-24 17:12] VITALS: BP 111/55; PULSE 91; TEMP 36.4; O2SAT 98
[2023-09-24] MEDS: cloNIDine HCL 0.1 MG TABLET PO (17:18)
[2023-09-25 07:55] VITALS: BP 118/72; PULSE 88; RESP 18; TEMP 37.1; O2SAT 100
[2023-09-25 08:00] VITALS: PULSE 88
[2023-09-25] MEDS: Nicotine 21 MG PATCH.TD24 TRANSDERMA (08:54)
[2023-09-25] MEDS: Sulfamethox/Trimeth 800/160 TABLET 1 TAB PO ×2 (08:55→20:18)
[2023-09-25] MEDS: Multivitamin TABLET 1 TAB PO (08:55)
[2023-09-25] MEDS: Folic Acid 1 MG TABLET PO (08:55)
[2023-09-25] MEDS: Thiamine HCL 100 MG TABLET PO (08:55)
[2023-09-25] MEDS: LORazepam 1 MG TABLET 2 MG PO ×2 (09:24→20:23)
[2023-09-25] MEDS: methADONE HCl 20 MG/2 ML ORAL.CONC 50 MG PO (09:25)
[2023-09-25] MEDS: Nicotine Polacrilex Lozenge 4 MG LOZENGE BUCCAL (11:04)
[2023-09-25] MEDS: LORazepam 1 MG TABLET PO (12:20)
[2023-09-25] MEDS: Dextroamphetamine/Amphetamine XR 10 MG CAP.ER.24H PO (12:20)
[2023-09-25] MEDS: Gabapentin 400 MG CAPSULE PO ×2 (14:26→20:18)
[2023-09-25] MEDS: Triamcinolone Acet 0.1 % Cream 15 GM TUBE 1 APPL TOPICAL (14:27)
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
[2023-09-25] MEDS: cloNIDine HCL 0.1 MG TABLET PO (17:06)
[2023-09-25] MEDS: Acetaminophen 325 MG TABLET 650 MG PO (17:11)
[2023-09-25 17:39] VITALS: BP 137/79; PULSE 111; TEMP 36.7; O2SAT 99
[2023-09-25] MEDS: hydrOXYzine HCL 50 MG TABLET PO (20:18)
[2023-09-25] MEDS: cloNIDine HCL 0.2 MG TABLET PO (20:18)
[2023-09-26 08:00] VITALS: PULSE 76
[2023-09-26 08:23] VITALS: BP 109/60; PULSE 76; RESP 16; TEMP 36.9; O2SAT 95
[2023-09-26] MEDS: methADONE HCl 20 MG/2 ML ORAL.CONC 50 MG PO (09:13)
[2023-09-26] MEDS: Dextroamphetamine/Amphetamine XR 10 MG CAP.ER.24H PO ×2 (09:14→12:51)
[2023-09-26] MEDS: cloNIDine HCL 0.1 MG TABLET PO ×2 (09:14→13:18)
[2023-09-26] MEDS: Sulfamethox/Trimeth 800/160 TABLET 1 TAB PO ×2 (09:14→19:29)
[2023-09-26] MEDS: buPROPion HCl XL 150 MG TAB.ER.24H PO (09:14)
[2023-09-26] MEDS: Folic Acid 1 MG TABLET PO (09:14)
[2023-09-26] MEDS: Multivitamin TABLET 1 TAB PO (09:14)
[2023-09-26] MEDS: Gabapentin 400 MG CAPSULE PO ×3 (09:14→19:29)
[2023-09-26] MEDS: Thiamine HCL 100 MG TABLET PO (09:14)
[2023-09-26] MEDS: Nicotine 21 MG PATCH.TD24 TRANSDERMA (09:14)
[2023-09-26] MEDS: LORazepam 1 MG TABLET PO ×2 (09:53→12:51)
--- NOTE | 2023-09-26 10:40 | HO.PSYCHPN ---
Subjective Subjective Date of Service: 09/26/23 Reason For Visit: ptsd, major depression, polysubstance use disorder Interim History: pt slept well; less irritable; compliant with meds; utilizing ativan for withdrawal. no side effects Medication Compliance: Yes Side effects from medications: No Attending Groups: Intermittent Review of Systems Acute medical concerns: No Medical Review of Systems: unchanged Review of Systems Review of Systems Constitutional : Denies fever chills ENT/Mouth : No Hearing loss, No Ear Pain, No Nasal Congestion, No Sinus Pain, No Hoarseness, No sore throat, No Rhinorrhea, No Swallowing Difficulty Eyes: No Eye Pain, No Swelling, No Redness, No Foreign Body, No Discharge, No Vision Changes Cardiovascular : No Chest Pain, No SOB, No Dyspnea on Exertion, No Orthopnea, No Edema, No Palpitations Respiratory : No Cough, No Sputum, No Wheezing, No Smoke Exposure, No Dyspnea Gastrointestinal : No Nausea, No Vomiting, No Diarrhea, No Constipation, No abdominal Pain, No Hematochezia, No Melena Genitourinary : no irregular bleeding, No Dysuria, No Urinary Frequency, No Hematuria, No Urinary Incontinence, No Urgency, No Flank Pain, No Urinary Flow Changes, No Hesitancy Musculoskeletal : No joint pain, No Myalgias, No Joint Swelling Skin : Complaining of an abscess to the left upper extremity, very tender to touch Neuro : No Weakness, No Numbness, No Paresthesias, No Loss of Consciousness, No Dizziness, No Headache Psych : No Anxiety/Panic, No Depression, No SI/HI/AH/VH, admits to drug use, patient states he has been hallucinating, patient did not describe Heme/Lymph: No Bruising, No Bleeding,No Lymphadenopathy Endocrine : No Polyuria, No Polydipsia, No Temperature Intolerance Yes Unobtainable due to mental status Mental Status Exam Mental Status Exam Patient Appearance: Fatigued Patient Orientation: Person, Place, Time and Situation Level of Consciousness: Drowsy and Sedated Patient Behavior: Sedated and Poor Eye Contact Mood Description: Flat Affect Description: Flat Patient Cognition Impaired: No Ability to Follow Directions: Fair Speech Pattern: Spontaneous Speech Memory Description: Episodic Impaired Diagnostics Vital Signs (24Hr): Vital Signs - 24 hr 09/25/23 17:39 Temperature 98.1 F Pulse Rate 111 H Blood Pressure 137/79 Pulse Oximetry 99 Oxygen Delivery Method Room Air BMI result Body Mass Index 21.8 Labs 09/20/23 19:27 09/20/23 19:27 Imaging Radiology Impressions: ITS Impressions Head CT 09/20/23 20:25 IMPRESSION: No acute intracranial pathology. Abdomen/Pelvis CT 09/20/23 21:14 IMPRESSION: 1. No acute abnormality. 2. Right renal cyst. No follow-up necessary. 3. Degenerative changes of the spine and left hip unchanged.. Superior endplate of L5 unchanged. Fleischner guidelines were followed. Forearm CT 09/20/23 21:14 IMPRESSION: 1. Limited exam. 2. No bone joint or soft tissue abnormality detected. Forearm CT 09/21/23 01:36 IMPRESSION: Cutaneous thickening and subcutaneous infiltration likely cellulitis. No acute osseous abnormality. No collection identified. Medications Medications Current Medications Acetaminophen (Acetaminophen 325 Mg Tablet) 650 mg PO Q6H PRN PRN Reason: Headache/Pain Mild Scale (1-3) Last Admin: 09/25/23 17:11 Dose: 650 mg Al Hydroxide/Mg Hydroxide (Magnesium Hydrox/Alum Hydrox 30 Ml Oral.Susp) 30 ml PO Q6H PRN PRN Reason: Heartburn/Nausea Amphetamine/Dextroamphetamine (Dextroamphetamine/Amphetamine Xr 10 Mg Cap.Er.24h) 10 mg PO 0900,1200 [facility] Last Admin: 09/26/23 09:14 Dose: 10 mg Bupropion HCl (Bupropion Hcl Xl 150 Mg Tab.Er.24h) 150 mg PO DAILY [facility] Last Admin: 09/26/23 09:14 Dose: 150 mg Clonidine HCl (Clonidine Hcl 0.1 Mg Tablet) 0.1 mg PO TID PRN; Protocol PRN Reason: withdrawal symptoms Last Admin: 09/25/23 17:06 Dose: 0.1 mg Clonidine HCl (Clonidine Hcl 0.1 Mg Tablet) 0.1 mg PO DAILY [facility]; Protocol Last Admin: 09/26/23 09:14 Dose: 0.1 mg Clonidine HCl (Clonidine Hcl 0.2 Mg Tablet) 0.2 mg PO BEDTIME [facility]; Protocol Last Admin: 09/25/23 20:18 Dose: 0.2 mg Folic Acid (Folic Acid 1 Mg Tablet) 1 mg PO DAILY [facility] Last Admin: 09/26/23 09:14 Dose: 1 mg Gabapentin (Gabapentin 400 Mg Capsule) 400 mg PO TID [facility] Last Admin: 09/26/23 09:14 Dose: 400 mg Hydroxyzine HCl (Hydroxyzine Hcl 50 Mg Tablet) 50 mg PO BID PRN PRN Reason: Anxiety Last Admin: 09/25/23 20:18 Dose: 50 mg Lorazepam (Lorazepam 1 Mg Tablet) 1 mg PO Q2H PRN PRN Reason: ciwa 6-10 Last Admin: 09/26/23 09:53 Dose: 1 mg Lorazepam (Lorazepam 1 Mg Tablet) 2 mg PO Q2H PRN PRN Reason: CIWA 11+ Last Admin: 09/25/23 20:23 Dose: 2 mg Magnesium Hydroxide (Milk Of Magnesia 30 Ml Oral.Susp) 30 ml PO DAILY PRN PRN Reason: Constipation Methadone HCl (Methadone Hcl 20 Mg/2 Ml Oral.Conc) 50 mg PO DAILY [facility] Last Admin: 09/26/23 09:13 Dose: 50 mg Multivitamins/Vitamin C (Multivitamin Tablet) 1 tab PO DAILY [facility] Last Admin: 09/26/23 09:14 Dose: 1 tab Nicotine (Nicotine 21 Mg Patch.Td24) 21 mg TRANSDERMA DAILY [facility] Last Admin: 09/26/23 09:14 Dose: 21 mg Nicotine Polacrilex (Nicotine Polacrilex Lozenge 4 Mg Lozenge) 4 mg BUCCAL Q2H PRN PRN Reason: Nicotine Cravings Last Admin: 09/25/23 11:04 Dose: 4 mg Thiamine HCl (Thiamine Hcl 100 Mg Tablet) 100 mg PO DAILY [facility] Last Admin: 09/26/23 09:14 Dose: 100 mg Triamcinolone Acetonide (Triamcinolone Acet 0.1 % Cream 15 Gm Tube) 1 appl TOPICAL BID [facility]; Protocol Last Admin: 09/25/23 23:19 Dose: Not Given Trimethoprim/Sulfamethoxazole (Sulfamethox/Trimeth 800/160 Tablet) 1 tab PO BID [facility] Last Admin: 09/26/23 09:14 Dose: 1 tab Allergies Allergies Allergy/AdvReac Type Severity Reaction Status Date / Time fish derived [FISH] Allergy Unknown UNKNOWN - Verified 03/01/23 11:41 NOT ANAPHYLAXIS PER PATIENT trazodone AdvReac Severe priapr Verified 05/18/22 05:35 Assessment & Plan Assessment & Plan (1) Recurrent major depression-severe: Status: Acute Code(s): F33.2 - Major depressive disorder, recurrent severe without psychotic features (2) PTSD (post-traumatic stress disorder): Status: Acute Code(s): F43.10 - Post-traumatic stress disorder, unspecified (3) Polysubstance abuse: Status: Acute Code(s): F19.10 - Other psychoactive substance abuse, uncomplicated (4) Cellulitis and abscess of other specified site: Status: Acute Code(s): L03.818 - Cellulitis of other sites; L02.818 - Cutaneous abscess of other sites Plan 43 yo male, to ER s/p injecting fentanyl with resulting cellulitis. Pt had I&D in the ER then verbalized SI if we did not send him to detox. Plan: Monitor for withdrawal Aftercare planning Collateral contact ?CSS admission 09/25/23 Re-establishing regime of meds Iron profile, Testosterone, ESR, HIV, Hepatitis panel Continue wound care 09/26/23 continue tx plan Reason for continued inpatient stay Substantial Risk for: harm to self, harm to others, inability to function and rapid decompensation Time Spent With Patient Time: Total time managing care of this patient today ____ minutes.
[2023-09-26] MEDS: Triamcinolone Acet 0.1 % Cream 15 GM TUBE 1 APPL TOPICAL (10:57)
--- NOTE | 2023-09-26 11:09 | PC.NURSE ---
dressing change performed per order
[2023-09-26] MEDS: Nicotine Polacrilex Lozenge 4 MG LOZENGE BUCCAL ×2 (13:15→16:51)
[2023-09-26] MEDS: hydrOXYzine HCL 50 MG TABLET PO (13:18)
[2023-09-26 16:45] VITALS: BP 139/88; PULSE 107; TEMP 36
[2023-09-26] MEDS: Acetaminophen 325 MG TABLET 650 MG PO (16:51)
[2023-09-26] MEDS: LORazepam 1 MG TABLET 2 MG PO (17:02)
[2023-09-26 19:25] VITALS: BP 128/73; PULSE 107; TEMP 36.4
[2023-09-26] MEDS: cloNIDine HCL 0.2 MG TABLET PO (19:29)
[2023-09-27 08:00] VITALS: PULSE 72
[2023-09-27 08:33] VITALS: BP 107/57; PULSE 70; RESP 16; TEMP 36.2; O2SAT 100
[2023-09-27] MEDS: Gabapentin 400 MG CAPSULE PO ×3 (08:51→19:39)
[2023-09-27] MEDS: Sulfamethox/Trimeth 800/160 TABLET 1 TAB PO ×2 (08:51→19:39)
[2023-09-27] MEDS: Folic Acid 1 MG TABLET PO (08:51)
[2023-09-27] MEDS: Dextroamphetamine/Amphetamine XR 10 MG CAP.ER.24H PO ×2 (08:51→12:27)
[2023-09-27] MEDS: cloNIDine HCL 0.1 MG TABLET PO ×2 (08:51→13:22)
[2023-09-27] MEDS: Nicotine 21 MG PATCH.TD24 TRANSDERMA (08:51)
[2023-09-27] MEDS: Thiamine HCL 100 MG TABLET PO (08:51)
[2023-09-27] MEDS: methADONE HCl 20 MG/2 ML ORAL.CONC 50 MG PO (08:51)
[2023-09-27] MEDS: buPROPion HCl XL 150 MG TAB.ER.24H PO (08:51)
[2023-09-27] MEDS: Multivitamin TABLET 1 TAB PO (08:51)
[2023-09-27] MEDS: LORazepam 1 MG TABLET PO ×2 (09:31→12:27)
[2023-09-27] MEDS: Nicotine Polacrilex Lozenge 4 MG LOZENGE BUCCAL ×2 (13:21→17:21)
[2023-09-27 15:51] VITALS: PULSE 68
[2023-09-27] MEDS: LORazepam 1 MG TABLET 2 MG PO (16:17)
[2023-09-27 18:00] VITALS: BP 131/77; PULSE 95; TEMP 36.5
--- NOTE | 2023-09-27 18:45 | P.PNPSI_ITS ---
Subjective Subjective Date of Service: 09/27/23 Reason For Visit: ptsd, major depression, polysubstance use disorder Subjective Notes: Conditional Voluntary Interim History: pt slept well;spending more time in [place]; mood improved; compliant with meds; utilizing ativan for withdrawal. no side effects Medication Compliance: Yes Side effects from medications: No Attending Groups: No Review of Systems Acute medical concerns: No Medical Review of Systems: unchanged Review of Systems Review of Systems Constitutional : Denies fever chills ENT/Mouth : No Hearing loss, No Ear Pain, No Nasal Congestion, No Sinus Pain, No Hoarseness, No sore throat, No Rhinorrhea, No Swallowing Difficulty Eyes: No Eye Pain, No Swelling, No Redness, No Foreign Body, No Discharge, No Vision Changes Cardiovascular : No Chest Pain, No SOB, No Dyspnea on Exertion, No Orthopnea, No Edema, No Palpitations Respiratory : No Cough, No Sputum, No Wheezing, No Smoke Exposure, No Dyspnea Gastrointestinal : No Nausea, No Vomiting, No Diarrhea, No Constipation, No abdominal Pain, No Hematochezia, No Melena Genitourinary : no irregular bleeding, No Dysuria, No Urinary Frequency, No Hematuria, No Urinary Incontinence, No Urgency, No Flank Pain, No Urinary Flow Changes, No Hesitancy Musculoskeletal : No joint pain, No Myalgias, No Joint Swelling Skin : Complaining of an abscess to the left upper extremity, very tender to touch Neuro : No Weakness, No Numbness, No Paresthesias, No Loss of Consciousness, No Dizziness, No Headache Psych : No Anxiety/Panic, No Depression, No SI/HI/AH/VH, admits to drug use, patient states he has been hallucinating, patient did not describe Heme/Lymph: No Bruising, No Bleeding,No Lymphadenopathy Endocrine : No Polyuria, No Polydipsia, No Temperature Intolerance Yes Unobtainable due to mental status Mental Status Exam Mental Status Exam Patient Appearance: Fatigued Patient Orientation: Person, Place, Time and Situation Level of Consciousness: Drowsy and Sedated Patient Behavior: Sedated and Poor Eye Contact Mood Description: Flat Affect Description: Flat Patient Cognition Impaired: No Ability to Follow Directions: Fair Speech Pattern: Spontaneous Speech Memory Description: Episodic Impaired Judgement: Fair Diagnostics Vital Signs (24Hr): Vital Signs - 24 hr 09/26/23 19:25 09/27/23 08:33 Temperature 97.5 F 97.1 F Pulse Rate 107 H 70 Respiratory Rate 16 Blood Pressure 128/73 107/57 L Pulse Oximetry 100 Oxygen Delivery Method Room Air BMI result Body Mass Index 21.8 Labs 09/20/23 19:27 09/20/23 19:27 Imaging Radiology Impressions: ITS Impressions Head CT 09/20/23 20:25 IMPRESSION: No acute intracranial pathology. Abdomen/Pelvis CT 09/20/23 21:14 IMPRESSION: 1. No acute abnormality. 2. Right renal cyst. No follow-up necessary. 3. Degenerative changes of the spine and left hip unchanged.. Superior endplate of L5 unchanged. Fleischner guidelines were followed. Forearm CT 09/20/23 21:14 IMPRESSION: 1. Limited exam. 2. No bone joint or soft tissue abnormality detected. Forearm CT 09/21/23 01:36 IMPRESSION: Cutaneous thickening and subcutaneous infiltration likely cellulitis. No acute osseous abnormality. No collection identified. Medications Medications Current Medications Acetaminophen (Acetaminophen 325 Mg Tablet) 650 mg PO Q6H PRN PRN Reason: Headache/Pain Mild Scale (1-3) Last Admin: 09/26/23 16:51 Dose: 650 mg Al Hydroxide/Mg Hydroxide (Magnesium Hydrox/Alum Hydrox 30 Ml Oral.Susp) 30 ml PO Q6H PRN PRN Reason: Heartburn/Nausea Amphetamine/Dextroamphetamine (Dextroamphetamine/Amphetamine Xr 10 Mg Cap.Er.24h) 10 mg PO 0900,1200 [facility] Last Admin: 09/27/23 12:27 Dose: 10 mg Bupropion HCl (Bupropion Hcl Xl 150 Mg Tab.Er.24h) 150 mg PO DAILY [facility] Last Admin: 09/27/23 08:51 Dose: 150 mg Clonidine HCl (Clonidine Hcl 0.1 Mg Tablet) 0.1 mg PO TID PRN; Protocol PRN Reason: withdrawal symptoms Last Admin: 09/27/23 13:22 Dose: 0.1 mg Clonidine HCl (Clonidine Hcl 0.1 Mg Tablet) 0.1 mg PO DAILY [facility]; Protocol Last Admin: 09/27/23 08:51 Dose: 0.1 mg Clonidine HCl (Clonidine Hcl 0.2 Mg Tablet) 0.2 mg PO BEDTIME [facility]; Protocol Last Admin: 09/26/23 19:29 Dose: 0.2 mg Folic Acid (Folic Acid 1 Mg Tablet) 1 mg PO DAILY [facility] Last Admin: 09/27/23 08:51 Dose: 1 mg Gabapentin (Gabapentin 400 Mg Capsule) 400 mg PO TID [facility] Last Admin: 09/27/23 16:13 Dose: 400 mg Hydroxyzine HCl (Hydroxyzine Hcl 50 Mg Tablet) 50 mg PO BID PRN PRN Reason: Anxiety Last Admin: 09/26/23 13:18 Dose: 50 mg Lorazepam (Lorazepam 1 Mg Tablet) 2 mg PO Q2H PRN PRN Reason: CIWA 11+ Last Admin: 09/27/23 16:17 Dose: 2 mg Magnesium Hydroxide (Milk Of Magnesia 30 Ml Oral.Susp) 30 ml PO DAILY PRN PRN Reason: Constipation Methadone HCl (Methadone Hcl 20 Mg/2 Ml Oral.Conc) 50 mg PO DAILY [facility] Last Admin: 09/27/23 08:51 Dose: 50 mg Multivitamins/Vitamin C (Multivitamin Tablet) 1 tab PO DAILY [facility] Last Admin: 09/27/23 08:51 Dose: 1 tab Nicotine (Nicotine 21 Mg Patch.Td24) 21 mg TRANSDERMA DAILY [facility] Last Admin: 09/27/23 08:51 Dose: 21 mg Nicotine Polacrilex (Nicotine Polacrilex Lozenge 4 Mg Lozenge) 4 mg BUCCAL Q2H PRN PRN Reason: Nicotine Cravings Last Admin: 09/27/23 17:21 Dose: 4 mg Thiamine HCl (Thiamine Hcl 100 Mg Tablet) 100 mg PO DAILY [facility] Last Admin: 09/27/23 08:51 Dose: 100 mg Triamcinolone Acetonide (Triamcinolone Acet 0.1 % Cream 15 Gm Tube) 1 appl TOPICAL BID [facility]; Protocol Last Admin: 09/27/23 11:13 Dose: Not Given Trimethoprim/Sulfamethoxazole (Sulfamethox/Trimeth 800/160 Tablet) 1 tab PO BID [facility] Last Admin: 09/27/23 08:51 Dose: 1 tab Allergies Allergies Allergy/AdvReac Type Severity Reaction Status Date / Time fish derived [FISH] Allergy Unknown UNKNOWN - Verified 03/01/23 11:41 NOT ANAPHYLAXIS PER PATIENT trazodone AdvReac Severe priapr Verified 05/18/22 05:35 Assessment & Plan Assessment & Plan (1) Recurrent major depression-severe: Status: Acute Code(s): F33.2 - Major depressive disorder, recurrent severe without psychotic features (2) PTSD (post-traumatic stress disorder): Status: Acute Code(s): F43.10 - Post-traumatic stress disorder, unspecified (3) Polysubstance abuse: Status: Acute Code(s): F19.10 - Other psychoactive substance abuse, uncomplicated (4) Cellulitis and abscess of other specified site: Status: Acute Code(s): L03.818 - Cellulitis of other sites; L02.818 - Cutaneous abscess of other sites Plan 43 yo male, to ER s/p injecting fentanyl with resulting cellulitis. Pt had I&D in the ER then verbalized SI if we did not send him to detox. Plan: Monitor for withdrawal Aftercare planning Collateral contact ?[facility] admission 09/25/23 Re-establishing regime of meds Iron profile, Testosterone, ESR, HIV, Hepatitis panel Continue wound care 09/26/23 continue tx plan 09/27/23 continue tx plan Reason for continued inpatient stay Substantial Risk for: harm to self, harm to others, inability to function and rapid decompensation Time Spent With Patient Time: Total time managing care of this patient today ____ minutes.
[2023-09-27] MEDS: hydrOXYzine HCL 50 MG TABLET PO (19:38)
[2023-09-27] MEDS: cloNIDine HCL 0.2 MG TABLET PO (19:39)
[2023-09-28 08:56] VITALS: BP 123/77; PULSE 93; RESP 16; TEMP 36.5; O2SAT 100
[2023-09-28] MEDS: Sulfamethox/Trimeth 800/160 TABLET 1 TAB PO ×2 (09:05→21:28)
[2023-09-28] MEDS: Folic Acid 1 MG TABLET PO (09:05)
[2023-09-28] MEDS: buPROPion HCl XL 150 MG TAB.ER.24H PO (09:05)
[2023-09-28] MEDS: cloNIDine HCL 0.1 MG TABLET PO ×2 (09:05→18:59)
[2023-09-28] MEDS: Thiamine HCL 100 MG TABLET PO (09:05)
[2023-09-28] MEDS: Dextroamphetamine/Amphetamine XR 10 MG CAP.ER.24H PO ×2 (09:05→11:57)
[2023-09-28] MEDS: Gabapentin 400 MG CAPSULE PO ×2 (09:05→14:47)
[2023-09-28] MEDS: Multivitamin TABLET 1 TAB PO (09:05)
[2023-09-28] MEDS: Nicotine 21 MG PATCH.TD24 TRANSDERMA (09:06)
[2023-09-28] MEDS: Triamcinolone Acet 0.1 % Cream 15 GM TUBE 1 APPL TOPICAL (09:13)
[2023-09-28] MEDS: methADONE HCl 20 MG/2 ML ORAL.CONC 50 MG PO (09:13)
[2023-09-28] MEDS: Nicotine Polacrilex Lozenge 4 MG LOZENGE BUCCAL (10:11)
[2023-09-28] MEDS: hydrOXYzine HCL 50 MG TABLET PO (10:13)
--- NOTE | 2023-09-28 14:22 | HO.PSYCHPN ---
Subjective Subjective Date of Service: 09/28/23 Reason For Visit: ptsd, major depression, polysubstance use disorder Subjective Notes: Conditional Voluntary Healthcare Proxy: No Guardianship: No Medical Problems Affecting Mental Status: No Interim History: Reports to team improved sleep. Some irritability at times throughout the weekend. Team is attempting to [facility]connect pt with [facility]. CIWA/COWS/Ativan discontinued. Prepared for further medication titration. Medication Compliance: Yes Side effects from medications: No Attending Groups: Intermittent Review of Systems Acute medical concerns: No Medical Review of Systems: unchanged Mental Status Exam Mental Status Exam Patient Appearance: Appropriate Patient Orientation: Person, Place, Time and Situation Level of Consciousness: Alert Patient Behavior: Appropriate, Talkative, Cooperative and Good Eye Contact Mood Description: Depressed and Apprehensive Affect Description: Flat Patient Cognition Impaired: No Ability to Follow Directions: Good Speech Pattern: Spontaneous Speech Memory Description: Intact Hallucinations: None Delusions: Not Present Thought Process: Distracted and Rumination Thought Content: positive for Perseveration Depressive Symptoms: Increased Irritability and Low Self Esteem Judgement: Good Diagnostics Vital Signs (24Hr): Vital Signs - 24 hr 09/27/23 18:00 09/28/23 08:56 Temperature 97.7 F 97.7 F Pulse Rate 95 93 Respiratory Rate 16 Blood Pressure 131/77 123/77 Pulse Oximetry 100 Oxygen Delivery Method Room Air BMI result Body Mass Index 21.8 Labs 09/20/23 19:27 09/20/23 19:27 Imaging Radiology Impressions: ITS Impressions Head CT 09/20/23 20:25 IMPRESSION: No acute intracranial pathology. Abdomen/Pelvis CT 09/20/23 21:14 IMPRESSION: 1. No acute abnormality. 2. Right renal cyst. No follow-up necessary. 3. Degenerative changes of the spine and left hip unchanged.. Superior endplate of L5 unchanged. Fleischner guidelines were followed. Forearm CT 09/20/23 21:14 IMPRESSION: 1. Limited exam. 2. No bone joint or soft tissue abnormality detected. Forearm CT 09/21/23 01:36 IMPRESSION: Cutaneous thickening and subcutaneous infiltration likely cellulitis. No acute osseous abnormality. No collection identified. Medications Medications Current Medications Acetaminophen (Acetaminophen 325 Mg Tablet) 650 mg PO Q6H PRN PRN Reason: Headache/Pain Mild Scale (1-3) Last Admin: 09/26/23 16:51 Dose: 650 mg Al Hydroxide/Mg Hydroxide (Magnesium Hydrox/Alum Hydrox 30 Ml Oral.Susp) 30 ml PO Q6H PRN PRN Reason: Heartburn/Nausea Amphetamine/Dextroamphetamine (Dextroamphetamine/Amphetamine Xr 10 Mg Cap.Er.24h) 10 mg PO 0900,1200 [facility] Last Admin: 09/28/23 11:57 Dose: 10 mg Bupropion HCl (Bupropion Hcl Xl 150 Mg Tab.Er.24h) 150 mg PO DAILY [facility] Last Admin: 09/28/23 09:05 Dose: 150 mg Clonidine HCl (Clonidine Hcl 0.1 Mg Tablet) 0.1 mg PO TID PRN; Protocol PRN Reason: withdrawal symptoms Last Admin: 09/27/23 13:22 Dose: 0.1 mg Clonidine HCl (Clonidine Hcl 0.1 Mg Tablet) 0.1 mg PO DAILY [facility]; Protocol Last Admin: 09/28/23 09:05 Dose: 0.1 mg Clonidine HCl (Clonidine Hcl 0.2 Mg Tablet) 0.2 mg PO BEDTIME [facility]; Protocol Last Admin: 09/27/23 19:39 Dose: 0.2 mg Folic Acid (Folic Acid 1 Mg Tablet) 1 mg PO DAILY [facility] Last Admin: 09/28/23 09:05 Dose: 1 mg Gabapentin (Gabapentin 400 Mg Capsule) 400 mg PO TID [facility] Last Admin: 09/28/23 09:05 Dose: 400 mg Hydroxyzine HCl (Hydroxyzine Hcl 50 Mg Tablet) 50 mg PO BID PRN PRN Reason: Anxiety Last Admin: 09/28/23 10:13 Dose: 50 mg Lorazepam (Lorazepam 1 Mg Tablet) 2 mg PO Q2H PRN PRN Reason: CIWA 11+ Last Admin: 09/27/23 16:17 Dose: 2 mg Magnesium Hydroxide (Milk Of Magnesia 30 Ml Oral.Susp) 30 ml PO DAILY PRN PRN Reason: Constipation Methadone HCl (Methadone Hcl 20 Mg/2 Ml Oral.Conc) 50 mg PO DAILY [facility] Last Admin: 09/28/23 09:13 Dose: 50 mg Multivitamins/Vitamin C (Multivitamin Tablet) 1 tab PO DAILY [facility] Last Admin: 09/28/23 09:05 Dose: 1 tab Nicotine (Nicotine 21 Mg Patch.Td24) 21 mg TRANSDERMA DAILY [facility] Last Admin: 09/28/23 09:06 Dose: 21 mg Nicotine Polacrilex (Nicotine Polacrilex Lozenge 4 Mg Lozenge) 4 mg BUCCAL Q2H PRN PRN Reason: Nicotine Cravings Last Admin: 09/28/23 10:11 Dose: 4 mg Thiamine HCl (Thiamine Hcl 100 Mg Tablet) 100 mg PO DAILY [facility] Last Admin: 09/28/23 09:05 Dose: 100 mg Triamcinolone Acetonide (Triamcinolone Acet 0.1 % Cream 15 Gm Tube) 1 appl TOPICAL BID [facility]; Protocol Last Admin: 09/28/23 09:13 Dose: 1 appl Trimethoprim/Sulfamethoxazole (Sulfamethox/Trimeth 800/160 Tablet) 1 tab PO BID [facility] Last Admin: 09/28/23 09:05 Dose: 1 tab Allergies Allergies Allergy/AdvReac Type Severity Reaction Status Date / Time fish derived [FISH] Allergy Unknown UNKNOWN - Verified 03/01/23 11:41 NOT ANAPHYLAXIS PER PATIENT trazodone AdvReac Severe priapr Verified 05/18/22 05:35 Assessment & Plan Assessment & Plan (1) Recurrent major depression-severe: Status: Acute Code(s): F33.2 - Major depressive disorder, recurrent severe without psychotic features (2) PTSD (post-traumatic stress disorder): Status: Acute Code(s): F43.10 - Post-traumatic stress disorder, unspecified (3) Polysubstance abuse: Status: Acute Code(s): F19.10 - Other psychoactive substance abuse, uncomplicated (4) Cellulitis and abscess of other specified site: Status: Acute Code(s): L03.818 - Cellulitis of other sites; L02.818 - Cutaneous abscess of other sites Plan 43 yo male, to ER s/p injecting fentanyl with resulting cellulitis. Pt had I&D in the ER then verbalized SI if we did not send him to detox. Plan: Monitor for withdrawal Aftercare planning Collateral contact ?[facility] admission 09/25/23 Re-establishing regime of meds Iron profile, Testosterone, ESR, HIV, Hepatitis panel Continue wound care 09/26/23 continue tx plan 09/27/23 continue tx plan 09/28/23 Continue medication titration-pt tolerating thus far. -Methadone 55 mg daily -Wellbutrin XL 300 mg daily -Adderall 10 mg tid -Gabapentin 600 mg tid -Ativan discontinued Patient educated on: medication risk/benefits Informed Consent: understands Reason for continued inpatient stay Substantial Risk for: rapid decompensation Time Spent With Patient Time: Total time managing care of this patient today ____ minutes.
[2023-09-28 18:55] VITALS: BP 117/73; PULSE 100
[2023-09-28 21:25] VITALS: BP 128/74; PULSE 90
[2023-09-28] MEDS: Gabapentin 300 MG CAPSULE 600 MG PO (21:28)
[2023-09-28] MEDS: cloNIDine HCL 0.2 MG TABLET PO (21:28)
[2023-09-29 08:20] VITALS: BP 136/64; PULSE 82; RESP 16; TEMP 36.3; O2SAT 100
[2023-09-29] MEDS: methADONE HCl 20 MG/2 ML ORAL.CONC 55 MG PO (09:08)
[2023-09-29] MEDS: Dextroamphetamine/Amphetamine XR 10 MG CAP.ER.24H PO ×3 (09:09→14:23)
[2023-09-29] MEDS: buPROPion HCl XL 300 MG TAB.ER.24H PO (09:09)
[2023-09-29] MEDS: Nicotine 21 MG PATCH.TD24 TRANSDERMA (09:09)
[2023-09-29] MEDS: Multivitamin TABLET 1 TAB PO (09:09)
[2023-09-29] MEDS: Sulfamethox/Trimeth 800/160 TABLET 1 TAB PO ×2 (09:09→19:57)
[2023-09-29] MEDS: Thiamine HCL 100 MG TABLET PO (09:09)
[2023-09-29] MEDS: cloNIDine HCL 0.1 MG TABLET PO (09:09)
[2023-09-29] MEDS: Folic Acid 1 MG TABLET PO (09:09)
[2023-09-29] MEDS: Triamcinolone Acet 0.1 % Cream 15 GM TUBE 1 APPL TOPICAL (09:24)
[2023-09-29] MEDS: Acetaminophen 325 MG TABLET 650 MG PO (09:24)
[2023-09-29] MEDS: Gabapentin 300 MG CAPSULE 600 MG PO ×3 (09:24→19:57)
[2023-09-29] MEDS: Nicotine Polacrilex Lozenge 4 MG LOZENGE BUCCAL ×3 (13:28→22:41)
--- NOTE | 2023-09-29 15:14 | P.PNPSI_ITS ---
Subjective Subjective Date of Service: 09/29/23 Reason For Visit: ptsd, major depression, polysubstance use disorder Subjective Notes: Conditional Voluntary Healthcare Proxy: No Guardianship: No Medical Problems Affecting Mental Status: No Interim History: Pt reports some progress and relief. Adjusting to dosing of medications and titration. Not feeling overmedicated or like he is being given too much. Denies sedation and other SE. Medication Compliance: Yes Side effects from medications: No Attending Groups: No Review of Systems Acute medical concerns: No Medical Review of Systems: unchanged Review of Systems Review of Systems Yes all other systems are reviewed and are negative Mental Status Exam Mental Status Exam Patient Appearance: Appropriate Patient Orientation: Person, Place, Time and Situation Level of Consciousness: Alert Patient Behavior: Appropriate, Talkative, Cooperative and Good Eye Contact Mood Description: Apprehensive Affect Description: Flat Patient Cognition Impaired: No Ability to Follow Directions: Good Speech Pattern: Spontaneous Speech Memory Description: Intact Hallucinations: None Delusions: Not Present Thought Process: Distracted and Rumination Thought Content: positive for Perseveration Depressive Symptoms: Increased Irritability and Low Self Esteem Judgement: Good Diagnostics Vital Signs (24Hr): Vital Signs - 24 hr 09/28/23 18:55 09/28/23 21:25 09/29/23 08:20 Temperature 97.4 F Pulse Rate 100 90 82 Respiratory Rate 16 Blood Pressure 117/73 128/74 136/64 Pulse Oximetry 100 Oxygen Delivery Method Room Air BMI result Body Mass Index 21.8 Labs 09/20/23 19:27 09/20/23 19:27 Imaging Radiology Impressions: ITS Impressions Head CT 09/20/23 20:25 IMPRESSION: No acute intracranial pathology. Abdomen/Pelvis CT 09/20/23 21:14 IMPRESSION: 1. No acute abnormality. 2. Right renal cyst. No follow-up necessary. 3. Degenerative changes of the spine and left hip unchanged.. Superior endplate of L5 unchanged. Fleischner guidelines were followed. Forearm CT 09/20/23 21:14 IMPRESSION: 1. Limited exam. 2. No bone joint or soft tissue abnormality detected. Forearm CT 09/21/23 01:36 IMPRESSION: Cutaneous thickening and subcutaneous infiltration likely cellulitis. No acute osseous abnormality. No collection identified. Medications Medications Current Medications Acetaminophen (Acetaminophen 325 Mg Tablet) 650 mg PO Q6H PRN PRN Reason: Headache/Pain Mild Scale (1-3) Last Admin: 09/29/23 09:24 Dose: 650 mg Al Hydroxide/Mg Hydroxide (Magnesium Hydrox/Alum Hydrox 30 Ml Oral.Susp) 30 ml PO Q6H PRN PRN Reason: Heartburn/Nausea Amphetamine/Dextroamphetamine (Dextroamphetamine/Amphetamine Xr 10 Mg Cap.Er.24h) 10 mg PO 0900,1200,1500 [facility] Last Admin: 09/29/23 14:23 Dose: 10 mg Bupropion HCl (Bupropion Hcl Xl 300 Mg Tab.Er.24h) 300 mg PO DAILY [facility] Last Admin: 09/29/23 09:09 Dose: 300 mg Clonidine HCl (Clonidine Hcl 0.1 Mg Tablet) 0.1 mg PO TID PRN; Protocol PRN Reason: withdrawal symptoms Last Admin: 09/28/23 18:59 Dose: 0.1 mg Clonidine HCl (Clonidine Hcl 0.1 Mg Tablet) 0.1 mg PO DAILY [facility]; Protocol Last Admin: 09/29/23 09:09 Dose: 0.1 mg Clonidine HCl (Clonidine Hcl 0.2 Mg Tablet) 0.2 mg PO BEDTIME [facility]; Protocol Last Admin: 09/28/23 21:28 Dose: 0.2 mg Folic Acid (Folic Acid 1 Mg Tablet) 1 mg PO DAILY [facility] Last Admin: 09/29/23 09:09 Dose: 1 mg Gabapentin (Gabapentin 300 Mg Capsule) 600 mg PO TID [facility] Last Admin: 09/29/23 14:23 Dose: 600 mg Hydroxyzine HCl (Hydroxyzine Hcl 50 Mg Tablet) 50 mg PO BID PRN PRN Reason: Anxiety Last Admin: 09/28/23 10:13 Dose: 50 mg Magnesium Hydroxide (Milk Of Magnesia 30 Ml Oral.Susp) 30 ml PO DAILY PRN PRN Reason: Constipation Methadone HCl (Methadone Hcl 20 Mg/2 Ml Oral.Conc) 55 mg PO DAILY [facility] Last Admin: 09/29/23 09:08 Dose: 55 mg Multivitamins/Vitamin C (Multivitamin Tablet) 1 tab PO DAILY [facility] Last Admin: 09/29/23 09:09 Dose: 1 tab Nicotine (Nicotine 21 Mg Patch.Td24) 21 mg TRANSDERMA DAILY [facility] Last Admin: 09/29/23 09:09 Dose: 21 mg Nicotine Polacrilex (Nicotine Polacrilex Lozenge 4 Mg Lozenge) 4 mg BUCCAL Q2H PRN PRN Reason: Nicotine Cravings Last Admin: 09/29/23 13:28 Dose: 4 mg Thiamine HCl (Thiamine Hcl 100 Mg Tablet) 100 mg PO DAILY [facility] Last Admin: 09/29/23 09:09 Dose: 100 mg Triamcinolone Acetonide (Triamcinolone Acet 0.1 % Cream 15 Gm Tube) 1 appl TOPICAL BID [facility]; Protocol Last Admin: 09/29/23 09:24 Dose: 1 appl Trimethoprim/Sulfamethoxazole (Sulfamethox/Trimeth 800/160 Tablet) 1 tab PO BID [facility] Last Admin: 09/29/23 09:09 Dose: 1 tab Allergies Allergies Allergy/AdvReac Type Severity Reaction Status Date / Time fish derived [FISH] Allergy Unknown UNKNOWN - Verified 03/01/23 11:41 NOT ANAPHYLAXIS PER PATIENT trazodone AdvReac Severe priapr Verified 05/18/22 05:35 Assessment & Plan Assessment & Plan (1) Recurrent major depression-severe: Status: Acute Code(s): F33.2 - Major depressive disorder, recurrent severe without psychotic features (2) PTSD (post-traumatic stress disorder): Status: Acute Code(s): F43.10 - Post-traumatic stress disorder, unspecified (3) Polysubstance abuse: Status: Acute Code(s): F19.10 - Other psychoactive substance abuse, uncomplicated (4) Cellulitis and abscess of other specified site: Status: Acute Code(s): L03.818 - Cellulitis of other sites; L02.818 - Cutaneous abscess of other sites Plan 43 yo male, to ER s/p injecting fentanyl with resulting cellulitis. Pt had I&D in the ER then verbalized SI if we did not send him to detox. Plan: Monitor for withdrawal Aftercare planning Collateral contact ?[facility] admission 09/25/23 Re-establishing regime of meds Iron profile, Testosterone, ESR, HIV, Hepatitis panel Continue wound care 09/26/23 continue tx plan 09/27/23 continue tx plan 09/28/23 Continue medication titration-pt tolerating thus far. -Methadone 55 mg daily -Wellbutrin XL 300 mg daily -Adderall 10 mg tid -Gabapentin 600 mg tid -Ativan discontinued 09/29/23 Continue current regime and plan of care Patient educated on: medication risk/benefits and therapeutic strategies Informed Consent: understands Reason for continued inpatient stay Substantial Risk for: rapid decompensation Time Spent With Patient Time: Total time managing care of this patient today ____ minutes.
--- NOTE | 2023-09-29 16:17 | PC.NURSE ---
Addendum entered by Aline Sawant RN 09/29/23 16:27: lATE ENTRY. lORAZEPAM NOTED BELOW WAS GIVEN ON SEPTEMBER 25, 2023. Original Note: Late entry Patient c/o withdrawal administered Lorazepam 1 mg po at 1702 and 1724, for a total of 2 mg.
[2023-09-29 17:55] VITALS: BP 134/75; PULSE 82; RESP 16; TEMP 36.6; O2SAT 98
[2023-09-29] MEDS: cloNIDine HCL 0.2 MG TABLET PO (19:57)
[2023-09-29 20:00] VITALS: BP 122/78; PULSE 88
[2023-09-30 08:00] VITALS: BP 130/72; PULSE 71; RESP 18; TEMP 36.7; O2SAT 98
[2023-09-30] MEDS: Nicotine 21 MG PATCH.TD24 TRANSDERMA (08:30)
[2023-09-30] MEDS: Gabapentin 300 MG CAPSULE 600 MG PO ×3 (08:31→20:05)
[2023-09-30] MEDS: buPROPion HCl XL 300 MG TAB.ER.24H PO (08:31)
[2023-09-30] MEDS: Sulfamethox/Trimeth 800/160 TABLET 1 TAB PO ×2 (08:31→20:05)
[2023-09-30] MEDS: Dextroamphetamine/Amphetamine XR 10 MG CAP.ER.24H PO ×3 (08:31→14:12)
[2023-09-30] MEDS: Thiamine HCL 100 MG TABLET PO (08:31)
[2023-09-30] MEDS: cloNIDine HCL 0.1 MG TABLET PO (08:32)
[2023-09-30] MEDS: Folic Acid 1 MG TABLET PO (08:32)
[2023-09-30] MEDS: methADONE HCl 20 MG/2 ML ORAL.CONC 55 MG PO (08:32)
[2023-09-30] MEDS: Multivitamin TABLET 1 TAB PO (08:32)
[2023-09-30] MEDS: Nicotine Polacrilex Lozenge 4 MG LOZENGE BUCCAL ×6 (08:33→23:22)
--- NOTE | 2023-09-30 14:40 | HO.PSYCHPN ---
Subjective Subjective Date of Service: 09/30/23 Reason For Visit: ptsd, major depression, polysubstance use disorder Subjective Notes: Conditional Voluntary Healthcare Proxy: No Guardianship: No Medical Problems Affecting Mental Status: No Interim History: When I am on the right meds, being off drugs is easier for me. Reports regime to be effective and without SE. Discussed probable discharge for Thursday-states he is prepared and if there are no [facility] beds available he will go to a friend's home. Discussed returning to [place] and his potential concerns. Medication Compliance: Yes Side effects from medications: No Attending Groups: Intermittent Review of Systems Acute medical concerns: No Medical Review of Systems: unchanged Review of Systems Review of Systems Yes all other systems are reviewed and are negative Mental Status Exam Mental Status Exam Patient Appearance: Appropriate Patient Orientation: Person, Place, Time and Situation Level of Consciousness: Alert Patient Behavior: Appropriate, Talkative, Cooperative and Good Eye Contact Mood Description: Apprehensive Affect Description: Flat Patient Cognition Impaired: No Ability to Follow Directions: Good Speech Pattern: Spontaneous Speech Memory Description: Intact Hallucinations: None Delusions: Not Present Thought Process: Distracted and Rumination Thought Content: positive for Perseveration Depressive Symptoms: Increased Irritability and Low Self Esteem Judgement: Good Diagnostics Vital Signs (24Hr): Vital Signs - 24 hr 09/29/23 17:55 09/29/23 20:00 09/30/23 08:00 Temperature 97.8 F 98.0 F Pulse Rate 82 88 71 Respiratory Rate 16 18 Blood Pressure 134/75 122/78 130/72 Pulse Oximetry 98 98 Oxygen Delivery Method Room Air Room Air BMI result Body Mass Index 21.8 Labs 09/20/23 19:27 09/20/23 19:27 Imaging Radiology Impressions: ITS Impressions Head CT 09/20/23 20:25 IMPRESSION: No acute intracranial pathology. Abdomen/Pelvis CT 09/20/23 21:14 IMPRESSION: 1. No acute abnormality. 2. Right renal cyst. No follow-up necessary. 3. Degenerative changes of the spine and left hip unchanged.. Superior endplate of L5 unchanged. Fleischner guidelines were followed. Forearm CT 09/20/23 21:14 IMPRESSION: 1. Limited exam. 2. No bone joint or soft tissue abnormality detected. Forearm CT 09/21/23 01:36 IMPRESSION: Cutaneous thickening and subcutaneous infiltration likely cellulitis. No acute osseous abnormality. No collection identified. Medications Medications Current Medications Acetaminophen (Acetaminophen 325 Mg Tablet) 650 mg PO Q6H PRN PRN Reason: Headache/Pain Mild Scale (1-3) Last Admin: 09/29/23 09:24 Dose: 650 mg Al Hydroxide/Mg Hydroxide (Magnesium Hydrox/Alum Hydrox 30 Ml Oral.Susp) 30 ml PO Q6H PRN PRN Reason: Heartburn/Nausea Amphetamine/Dextroamphetamine (Dextroamphetamine/Amphetamine Xr 10 Mg Cap.Er.24h) 10 mg PO 0900,1200,1500 [facility] Last Admin: 09/30/23 14:12 Dose: 10 mg Bupropion HCl (Bupropion Hcl Xl 300 Mg Tab.Er.24h) 300 mg PO DAILY [facility] Last Admin: 09/30/23 08:31 Dose: 300 mg Clonidine HCl (Clonidine Hcl 0.1 Mg Tablet) 0.1 mg PO TID PRN; Protocol PRN Reason: withdrawal symptoms Last Admin: 09/28/23 18:59 Dose: 0.1 mg Clonidine HCl (Clonidine Hcl 0.1 Mg Tablet) 0.1 mg PO DAILY [facility]; Protocol Last Admin: 09/30/23 08:32 Dose: 0.1 mg Clonidine HCl (Clonidine Hcl 0.2 Mg Tablet) 0.2 mg PO BEDTIME [facility]; Protocol Last Admin: 09/29/23 19:57 Dose: 0.2 mg Folic Acid (Folic Acid 1 Mg Tablet) 1 mg PO DAILY [facility] Last Admin: 09/30/23 08:32 Dose: 1 mg Gabapentin (Gabapentin 300 Mg Capsule) 600 mg PO TID [facility] Last Admin: 09/30/23 14:12 Dose: 600 mg Hydroxyzine HCl (Hydroxyzine Hcl 50 Mg Tablet) 50 mg PO BID PRN PRN Reason: Anxiety Last Admin: 09/28/23 10:13 Dose: 50 mg Magnesium Hydroxide (Milk Of Magnesia 30 Ml Oral.Susp) 30 ml PO DAILY PRN PRN Reason: Constipation Methadone HCl (Methadone Hcl 20 Mg/2 Ml Oral.Conc) 55 mg PO DAILY [facility] Last Admin: 09/30/23 08:32 Dose: 55 mg Multivitamins/Vitamin C (Multivitamin Tablet) 1 tab PO DAILY [facility] Last Admin: 09/30/23 08:32 Dose: 1 tab Nicotine (Nicotine 21 Mg Patch.Td24) 21 mg TRANSDERMA DAILY [facility] Last Admin: 09/30/23 08:30 Dose: 21 mg Nicotine Polacrilex (Nicotine Polacrilex Lozenge 4 Mg Lozenge) 4 mg BUCCAL Q2H PRN PRN Reason: Nicotine Cravings Last Admin: 09/30/23 13:43 Dose: 4 mg Thiamine HCl (Thiamine Hcl 100 Mg Tablet) 100 mg PO DAILY [facility] Last Admin: 09/30/23 08:31 Dose: 100 mg Triamcinolone Acetonide (Triamcinolone Acet 0.1 % Cream 15 Gm Tube) 1 appl TOPICAL BID [facility]; Protocol Last Admin: 09/30/23 09:35 Dose: Not Given Trimethoprim/Sulfamethoxazole (Sulfamethox/Trimeth 800/160 Tablet) 1 tab PO BID [facility] Last Admin: 09/30/23 08:31 Dose: 1 tab Allergies Allergies Allergy/AdvReac Type Severity Reaction Status Date / Time fish derived [FISH] Allergy Unknown UNKNOWN - Verified 03/01/23 11:41 NOT ANAPHYLAXIS PER PATIENT trazodone AdvReac Severe priapr Verified 05/18/22 05:35 Assessment & Plan Assessment & Plan (1) Recurrent major depression-severe: Status: Acute Code(s): F33.2 - Major depressive disorder, recurrent severe without psychotic features (2) PTSD (post-traumatic stress disorder): Status: Acute Code(s): F43.10 - Post-traumatic stress disorder, unspecified (3) Polysubstance abuse: Status: Acute Code(s): F19.10 - Other psychoactive substance abuse, uncomplicated (4) Cellulitis and abscess of other specified site: Status: Acute Code(s): L03.818 - Cellulitis of other sites; L02.818 - Cutaneous abscess of other sites Plan 43 yo male, to ER s/p injecting fentanyl with resulting cellulitis. Pt had I&D in the ER then verbalized SI if we did not send him to detox. Plan: Monitor for withdrawal Aftercare planning Collateral contact ?[facility] admission 09/25/23 Re-establishing regime of meds Iron profile, Testosterone, ESR, HIV, Hepatitis panel Continue wound care 09/26/23 continue tx plan 09/27/23 continue tx plan 09/28/23 Continue medication titration-pt tolerating thus far. -Methadone 55 mg daily -Wellbutrin XL 300 mg daily -Adderall 10 mg tid -Gabapentin 600 mg tid -Ativan discontinued 09/29/23 Continue current regime and plan of care 09/30/23 Discharge planning for 10/02. Pt feeling prepared. Patient educated on: therapeutic strategies Informed Consent: understands Reason for continued inpatient stay Substantial Risk for: rapid decompensation Time Spent With Patient Time: Total time managing care of this patient today ____ minutes.
[2023-09-30] MEDS: Acetaminophen 325 MG TABLET 650 MG PO ×2 (16:17→23:23)
--- NOTE | 2023-09-30 16:22 | PC.NURSE ---
Patient showed this bid writer broken incisor lower jaw. He said I was eating a piece of melon . No bleeding noted. Provider Denis Parnell notified.
[2023-09-30 18:00] VITALS: BP 136/76; TEMP 37; O2SAT 98
[2023-09-30] MEDS: cloNIDine HCL 0.2 MG TABLET PO (20:05)
[2023-09-30] MEDS: Doxycycline Monohydrate 100 MG CAPSULE PO (20:05)
[2023-10-01] MEDS: Doxycycline Monohydrate 100 MG CAPSULE PO ×2 (06:26→17:28)
[2023-10-01 08:05] VITALS: BP 146/102; PULSE 71; RESP 18; TEMP 36.3; O2SAT 98
[2023-10-01] MEDS: buPROPion HCl XL 300 MG TAB.ER.24H PO (08:29)
[2023-10-01] MEDS: Nicotine 21 MG PATCH.TD24 TRANSDERMA (08:29)
[2023-10-01] MEDS: Thiamine HCL 100 MG TABLET PO (08:29)
[2023-10-01] MEDS: Gabapentin 300 MG CAPSULE 600 MG PO ×3 (08:30→22:00)
[2023-10-01] MEDS: cloNIDine HCL 0.1 MG TABLET PO (08:30)
[2023-10-01] MEDS: Folic Acid 1 MG TABLET PO (08:30)
[2023-10-01] MEDS: Dextroamphetamine/Amphetamine XR 10 MG CAP.ER.24H PO ×3 (08:30→14:38)
[2023-10-01] MEDS: Sulfamethox/Trimeth 800/160 TABLET 1 TAB PO ×2 (08:30→21:59)
[2023-10-01] MEDS: Multivitamin TABLET 1 TAB PO (08:30)
[2023-10-01] MEDS: methADONE HCl 20 MG/2 ML ORAL.CONC 55 MG PO (08:31)
[2023-10-01] MEDS: Nicotine Polacrilex Lozenge 4 MG LOZENGE BUCCAL ×5 (08:43→22:03)
[2023-10-01] MEDS: hydrOXYzine HCL 50 MG TABLET PO (13:14)
[2023-10-01 13:58] VITALS: BMI 25.1
--- NOTE | 2023-10-01 14:36 | P.PNPSI_ITS ---
Subjective Subjective Date of Service: 10/01/23 Reason For Visit: ptsd, major depression, polysubstance use disorder Subjective Notes: Conditional Voluntary Healthcare Proxy: No Guardianship: No Medical Problems Affecting Mental Status: No Interim History: Review of medications and plans for discharge 10/02. Insurance will not cover generic Adderall, [facility] does not stock brand, so this prescription will be sent to [facility] . Pt is in need of an ID. Discussed resources where he can present for assistance in replacing this. Denies SI, HI, AH, VH, mood instability. Reports regime to be effective and tolerated and without adverse effects. Medication Compliance: Yes Side effects from medications: No Attending Groups: Intermittent Review of Systems Acute medical concerns: No Medical Review of Systems: unchanged Review of Systems Review of Systems Yes all other systems are reviewed and are negative Mental Status Exam Mental Status Exam Patient Appearance: Appropriate Patient Orientation: Person, Place, Time and Situation Level of Consciousness: Alert Patient Behavior: Appropriate, Talkative, Cooperative and Good Eye Contact Mood Description: Apprehensive Affect Description: Flat Patient Cognition Impaired: No Ability to Follow Directions: Good Speech Pattern: Spontaneous Speech Memory Description: Intact Hallucinations: None Delusions: Not Present Thought Process: Distracted and Rumination Thought Content: positive for Perseveration Depressive Symptoms: Increased Irritability and Low Self Esteem Judgement: Good Diagnostics Vital Signs (24Hr): Vital Signs - 24 hr 09/30/23 18:00 10/01/23 08:05 Temperature 98.6 F 97.3 F Pulse Rate 71 Respiratory Rate 18 Blood Pressure 136/76 146/102 H Pulse Oximetry 98 98 Oxygen Delivery Method Room Air Room Air BMI result Body Mass Index 25.1 Labs 09/20/23 19:27 09/20/23 19:27 Imaging Radiology Impressions: ITS Impressions Head CT 09/20/23 20:25 IMPRESSION: No acute intracranial pathology. Abdomen/Pelvis CT 09/20/23 21:14 IMPRESSION: 1. No acute abnormality. 2. Right renal cyst. No follow-up necessary. 3. Degenerative changes of the spine and left hip unchanged.. Superior endplate of L5 unchanged. Fleischner guidelines were followed. Forearm CT 09/20/23 21:14 IMPRESSION: 1. Limited exam. 2. No bone joint or soft tissue abnormality detected. Forearm CT 09/21/23 01:36 IMPRESSION: Cutaneous thickening and subcutaneous infiltration likely cellulitis. No acute osseous abnormality. No collection identified. Medications Medications Current Medications Acetaminophen (Acetaminophen 325 Mg Tablet) 650 mg PO Q6H PRN PRN Reason: Headache/Pain Mild Scale (1-3) Last Admin: 09/30/23 23:23 Dose: 650 mg Al Hydroxide/Mg Hydroxide (Magnesium Hydrox/Alum Hydrox 30 Ml Oral.Susp) 30 ml PO Q6H PRN PRN Reason: Heartburn/Nausea Amphetamine/Dextroamphetamine (Dextroamphetamine/Amphetamine Xr 10 Mg Cap.Er.24h) 10 mg PO 0900,1200,1500 [facility] Last Admin: 10/01/23 12:10 Dose: 10 mg Bupropion HCl (Bupropion Hcl Xl 300 Mg Tab.Er.24h) 300 mg PO DAILY [facility] Last Admin: 10/01/23 08:29 Dose: 300 mg Clonidine HCl (Clonidine Hcl 0.1 Mg Tablet) 0.1 mg PO TID PRN; Protocol PRN Reason: withdrawal symptoms Last Admin: 09/28/23 18:59 Dose: 0.1 mg Clonidine HCl (Clonidine Hcl 0.1 Mg Tablet) 0.1 mg PO DAILY [facility]; Protocol Last Admin: 10/01/23 08:30 Dose: 0.1 mg Clonidine HCl (Clonidine Hcl 0.2 Mg Tablet) 0.2 mg PO BEDTIME [facility]; Protocol Last Admin: 09/30/23 20:05 Dose: 0.2 mg Doxycycline Monohydrate (Doxycycline Monohydrate 100 Mg Capsule) 100 mg PO Q12H [facility] Stop: 10/08/23 09:00 Last Admin: 10/01/23 06:26 Dose: 100 mg Folic Acid (Folic Acid 1 Mg Tablet) 1 mg PO DAILY [facility] Last Admin: 10/01/23 08:30 Dose: 1 mg Gabapentin (Gabapentin 300 Mg Capsule) 600 mg PO TID [facility] Last Admin: 10/01/23 08:30 Dose: 600 mg Hydroxyzine HCl (Hydroxyzine Hcl 50 Mg Tablet) 50 mg PO BID PRN PRN Reason: Anxiety Last Admin: 10/01/23 13:14 Dose: 50 mg Magnesium Hydroxide (Milk Of Magnesia 30 Ml Oral.Susp) 30 ml PO DAILY PRN PRN Reason: Constipation Methadone HCl (Methadone Hcl 20 Mg/2 Ml Oral.Conc) 55 mg PO DAILY [facility] Last Admin: 10/01/23 08:31 Dose: 55 mg Multivitamins/Vitamin C (Multivitamin Tablet) 1 tab PO DAILY [facility] Last Admin: 10/01/23 08:30 Dose: 1 tab Nicotine (Nicotine 21 Mg Patch.Td24) 21 mg TRANSDERMA DAILY [facility] Last Admin: 10/01/23 08:29 Dose: 21 mg Nicotine Polacrilex (Nicotine Polacrilex Lozenge 4 Mg Lozenge) 4 mg BUCCAL Q2H PRN PRN Reason: Nicotine Cravings Last Admin: 10/01/23 12:12 Dose: 4 mg Thiamine HCl (Thiamine Hcl 100 Mg Tablet) 100 mg PO DAILY [facility] Last Admin: 10/01/23 08:29 Dose: 100 mg Triamcinolone Acetonide (Triamcinolone Acet 0.1 % Cream 15 Gm Tube) 1 appl TOPICAL BID [facility]; Protocol Last Admin: 10/01/23 09:07 Dose: Not Given Trimethoprim/Sulfamethoxazole (Sulfamethox/Trimeth 800/160 Tablet) 1 tab PO BID [facility] Last Admin: 10/01/23 08:30 Dose: 1 tab Allergies Allergies Allergy/AdvReac Type Severity Reaction Status Date / Time fish derived [FISH] Allergy Unknown UNKNOWN - Verified 03/01/23 11:41 NOT ANAPHYLAXIS PER PATIENT trazodone AdvReac Severe priapr Verified 05/18/22 05:35 Assessment & Plan Assessment & Plan (1) Recurrent major depression-severe: Status: Acute Code(s): F33.2 - Major depressive disorder, recurrent severe without psychotic features (2) PTSD (post-traumatic stress disorder): Status: Acute Code(s): F43.10 - Post-traumatic stress disorder, unspecified (3) Polysubstance abuse: Status: Acute Code(s): F19.10 - Other psychoactive substance abuse, uncomplicated (4) Cellulitis and abscess of other specified site: Status: Acute Code(s): L03.818 - Cellulitis of other sites; L02.818 - Cutaneous abscess of other sites Plan 43 yo male, to ER s/p injecting fentanyl with resulting cellulitis. Pt had I&D in the ER then verbalized SI if we did not send him to detox. Plan: Monitor for withdrawal Aftercare planning Collateral contact ?[facility] admission 09/25/23 Re-establishing regime of meds Iron profile, Testosterone, ESR, HIV, Hepatitis panel Continue wound care 09/26/23 continue tx plan 09/27/23 continue tx plan 09/28/23 Continue medication titration-pt tolerating thus far. -Methadone 55 mg daily -Wellbutrin XL 300 mg daily -Adderall 10 mg tid -Gabapentin 600 mg tid -Ativan discontinued 09/29/23 Continue current regime and plan of care 10/01/23 Discharge 10/02/23. Patient educated on: therapeutic strategies Informed Consent: understands Reason for continued inpatient stay Substantial Risk for: stable for discharge Time Spent With Patient Time: Total time managing care of this patient today ____ minutes.
[2023-10-01 18:35] VITALS: BP 125/80; PULSE 69; RESP 16; TEMP 36.7; O2SAT 100
[2023-10-01] MEDS: cloNIDine HCL 0.2 MG TABLET PO (21:59)
[2023-10-02 06:00] VITALS: BP 136/79; PULSE 72; RESP 16; TEMP 36.9; O2SAT 100
[2023-10-02] MEDS: Nicotine Polacrilex Lozenge 4 MG LOZENGE BUCCAL ×2 (06:47→09:24)
[2023-10-02] MEDS: Folic Acid 1 MG TABLET PO (08:07)
[2023-10-02] MEDS: buPROPion HCl XL 300 MG TAB.ER.24H PO (08:07)
[2023-10-02] MEDS: Dextroamphetamine/Amphetamine XR 10 MG CAP.ER.24H PO (08:07)
[2023-10-02] MEDS: cloNIDine HCL 0.1 MG TABLET PO (08:07)
[2023-10-02] MEDS: Gabapentin 300 MG CAPSULE 600 MG PO (08:07)
[2023-10-02] MEDS: Thiamine HCL 100 MG TABLET PO (08:07)
[2023-10-02] MEDS: Multivitamin TABLET 1 TAB PO (08:08)
[2023-10-02] MEDS: Nicotine 21 MG PATCH.TD24 TRANSDERMA (08:08)
[2023-10-02] MEDS: methADONE HCl 20 MG/2 ML ORAL.CONC 55 MG PO (08:11)
[2023-10-02] MEDS: Doxycycline Monohydrate 100 MG CAPSULE PO (08:56)
[2023-10-02] MEDS: Sulfamethox/Trimeth 800/160 TABLET 1 TAB PO (08:56)
--- NOTE | 2023-10-02 15:33 | P.DS_ITS ---
DS: Providers Provider Date of Service: 10/02/23 Date of admission: 09/22/23 14:38 Date of discharge: 10/02/23 Primary care physician: Unknown Physician Admitting clinician: Jazmine Retana Attending physician on admission: Lui Gao Consults: 09/24/23 10:11 Consult to Wound Care Routine Reason for consultation: s/p I&D,L forearm, site warm,tender, needs packing,drainage, ?infection Has provider been notified: Yes Attending physician on discharge: Lui Gao Discharging clinician: Jazmine Retana DS: Diagnosis Discharge Diagnosis (1) Recurrent major depression-severe: Status: Acute (2) PTSD (post-traumatic stress disorder): Status: Acute (3) Polysubstance abuse: Status: Acute (4) Cellulitis and abscess of other specified site: Status: Resolved DS: Medications Discharge Medications Home Medications: Previous Rx's Medication Instructions Recorded bupropion HCl 300 mg 24 hr tablet, 300 mg PO DAILY #7 tabs 10/01/23 extended release clonidine HCl 0.1 mg tablet 0.1 mg PO DAILY #7 tabs 10/01/23 clonidine HCl 0.2 mg tablet 0.2 mg PO BEDTIME #7 tabs 10/01/23 dextroamphetamine-amphetamine ER 10 mg PO TID #21 caps 10/01/23 10 mg 24hr capsule,extend release (Adderall XR) doxycycline monohydrate 100 mg 100 mg PO Q12H #14 caps 10/01/23 capsule folic acid 1 mg tablet 1 mg PO DAILY #30 tabs 10/01/23 gabapentin 300 mg capsule 600 mg (2 x 300 mg) PO TID #21 caps 10/01/23 methadone 10 mg/mL oral 55 mg (5.5 mL) PO DAILY #0 mL 10/01/23 concentrate (Methadose) multivitamin (Daily-Jesenia tablet) 1 tab PO DAILY #30 tabs 10/01/23 nicotine (polacrilex) 4 mg buccal 4 mg buccal Q2H PRN Nicotine 10/01/23 lozenge Cravings #100 ea nicotine 21 mg/24 hr daily 21 mg transdermal DAILY #30 ea 10/01/23 transdermal patch sulfamethoxazole 800 1 tab PO BID #14 tabs 10/01/23 mg-trimethoprim 160 mg tablet (Bactrim DS) thiamine mononitrate (vit B1) 100 100 mg PO DAILY #30 tabs 10/01/23 mg tablet triamcinolone acetonide 0.1 % 1 appl topical BID #14 applicators 10/01/23 topical cream Mental Status Exam Mental Status Exam Patient Appearance: Appropriate Patient Orientation: Person, Place, Time and Situation Level of Consciousness: Alert Patient Behavior: Appropriate, Talkative, Cooperative and Good Eye Contact Mood Description: Apprehensive Affect Description: Flat Patient Cognition Impaired: No Ability to Follow Directions: Good Speech Pattern: Spontaneous Speech Memory Description: Intact Hallucinations: None Delusions: Not Present Thought Process: Distracted and Rumination Thought Content: positive for Perseveration Depressive Symptoms: Increased Irritability and Low Self Esteem Judgement: Good Data Data Completed and Pending Completed studies during hospitalization [Text1]: 09/20/23 19:32 Blood - Venous Blood Culture - Final No growth after 5 days. 09/20/23 19:31 Blood - Venous Blood Culture - Final Imaging Diagnostic Imaging Impressions Head CT 09/20/23 20:25 IMPRESSION: No acute intracranial pathology. Abdomen/Pelvis CT 09/20/23 21:14 IMPRESSION: 1. No acute abnormality. 2. Right renal cyst. No follow-up necessary. 3. Degenerative changes of the spine and left hip unchanged.. Superior endplate of L5 unchanged. Fleischner guidelines were followed. Forearm CT 09/20/23 21:14 IMPRESSION: 1. Limited exam. 2. No bone joint or soft tissue abnormality detected. Forearm CT 09/21/23 01:36 IMPRESSION: Cutaneous thickening and subcutaneous infiltration likely cellulitis. No acute osseous abnormality. No collection identified. DS: Summary Hospital Course Hospital Course: Admission to adult psychiatry for exacerbation of PTSD, Recurrent Major Depression, Polysubstance use disorder, Opiate Use Disorder, on Methadone and ADHD. [employer] pt injected fentanyl and required I&D. He reported he would suicide if we could not find him a detox bed so he was admitted. Medications were evaluated, adjusted and initiated with Mark. As his stay progressed, he participated more in milieu and with the team. [facility], [facility] options and he reports he will follow up on these upon leaving the hospital. Time spent discussing smoking cessation with patient: 3 to 10 minutes Status at Discharge Functional status at discharge: independent ambulation Overall status at discharge: patient is progressing back to baseline Time Spent with Patient Time attestation: Total time managing care of this patient today ____ minutes. Time spent: Greater than 30 minutes Discharge Plan Discharge Anticipated Discharge Date/Time: 10/02/23 12:00 Patient Disposition: Xfer Other Discharge Diagnosis: PTSD Recurrent Major Depression, Severe Polysubstance Use Disorder Opiate Use Disorder, Methadone Maintenance ADHD Referrals: Dept. Of 's Affairs: Susie Thorpe [Other] - 10/21/23 10:00 am (Initial Intake to establish services at [facility] in [place], [place] (Therapy and Psychiatry) Appointment is in n person.) [facility] [Other] - Tomorrow (Patient referred to [facility] for substance use treatment program. Patient should continue to follow-up on referral after discharge.) [facility] [Other] (Walk in if needed) Discharge Medications: New clonidine HCl 0.1 mg Tablet 0.1 mg PO DAILY Qty: 7 4RF Protocol: Hold for SBP< HOLD for SBP < : 90 triamcinolone acetonide 0.1 % Cream 1 appl topical BID Qty: 14 4RF Protocol: Apply to: Apply to: affected areas clonidine HCl 0.2 mg Tablet 0.2 mg PO BEDTIME Qty: 7 4RF Protocol: Hold for SBP< HOLD for SBP < : 90 doxycycline monohydrate 100 mg Capsule 100 mg PO Q12H Qty: 14 0RF nicotine 21 mg/24 hr Patch 24 Hour 21 mg transdermal DAILY Qty: 30 0RF gabapentin 300 mg Capsule 600 mg PO TID Qty: 21 4RF methadone [Methadose] 10 mg/mL Concentrate 55 mg PO DAILY Qty: 0 0RF Rx Instructions: Partial Fill upon patient request. nicotine (polacrilex) 4 mg Lozenge 4 mg buccal Q2H PRN (Reason: Nicotine Cravings) Qty: 100 0RF bupropion HCl 300 mg Tablet Extended Release 24 Hr 300 mg PO DAILY Qty: 7 4RF multivitamin [Daily-Jesenia] Tablet 1 tab PO DAILY Qty: 30 0RF folic acid 1 mg Tablet 1 mg PO DAILY Qty: 30 0RF thiamine mononitrate (vit B1) 100 mg Tablet 100 mg PO DAILY Qty: 30 0RF sulfamethoxazole-trimethoprim [Bactrim DS] 800-160 mg tablet 1 tab PO BID Qty: 14 0RF dextroamphetamine-amphetamine [Adderall XR] 10 mg capsule,extended release 24hr 10 mg PO TID Qty: 21 0RF Rx Instructions: 0900, 1200, 1500 dextroamphetamine-amphetamine [Adderall XR] 10 mg capsule,extended release 24hr 10 mg PO TID Qty: 21 0RF Rx Instructions: Partial Fill upon patient request. dextroamphetamine-amphetamine [Adderall XR] 10 mg capsule,extended release 24hr 10 mg PO TID Qty: 21 0RF Rx Instructions: Partial Fill upon patient request. dextroamphetamine-amphetamine [Adderall XR] 10 mg capsule,extended release 24hr 10 mg PO TID Qty: 21 0RF Rx Instructions: Partial Fill upon patient request. Discontinued sulfamethoxazole-trimethoprim [Bactrim DS] 800-160 mg Tablet 1 tab PO BID Discharge Orders: Discharge Order (Routine); Ordered 10/02/23 Ordered By: Jazmine Retana Diet: Advance to usual diet Activity on Discharge: As tolerated Stand Alone Forms: Patient Portal Discharge page, Community Support Care Plan Goals: Mood and Behavioral Stabilization Work on sobriety Health Concerns: Mood and Behavioral Stabilization Work on Sobriety Plan of Treatment: Attend scheduled appointments Take medications as directed Assessment: Scheduled discharge Patient Instructions: Abscess (ED), Polysubstance Abuse (ED) Discharge Date/Time: 10/02/23 10:58
== END 2023-10-02 10:58 | disposition other institution (70) | DRG 751 ==
LOC: HO.ED 09-21 15:20 → HO.PM5 09-22 14:41
PROVIDERS: Admitting Provider Clinical Nurse Specialist Psychiatric/Mental Health, Adult; Emergency Provider Emergency Medicine; Visit Provider Clinical Nurse Specialist Psychiatric/Mental Health, Adult
DX: F33.2 Major depressive disorder, recurrent severe without psychotic features (principal); R45.851 Suicidal ideations; F19.10 Other psychoactive substance abuse, uncomplicated; L02.414 Cutaneous abscess of left upper limb; L03.114 Cellulitis of left upper limb; F10.229 Alcohol dependence with intoxication, unspecified; F11.20 Opioid dependence, uncomplicated; F43.10 Post-traumatic stress disorder, unspecified; Y90.2 Blood alcohol level of 40-59 mg/100 ml; Z20.822 Contact with and (suspected) exposure to COVID-19; Z91.410 Personal history of adult physical and sexual abuse; Z79.899 Other long term (current) drug therapy
CPT/HCPCS: 36415; 70450; 73201; 74177; 80048; 80061; 80076; 80307; 81003; 82607; 82746; 83036; 83605; 83735; 84439; 84443; 84484; 85025; 85610; 85652; 86140; 87040; 87635; 93005; 99285; J1200; J2060; J2543; J3370; Q9967; S9485

== ENCOUNTER → 2023-09-22 14:38 | Outpatient (BNV) | payer OTHER, SELFPAY | PROVIDERS: Admitting Provider Clinical Nurse Specialist Psychiatric/Mental Health, Adult; Emergency Provider Emergency Medicine; Visit Provider Clinical Nurse Specialist Psychiatric/Mental Health, Adult | DX: F33.2 Major depressive disorder, recurrent severe without psychotic features (principal); F19.10 Other psychoactive substance abuse, uncomplicated; F43.11 Post-traumatic stress disorder, acute; L03.818 Cellulitis of other sites; L02.818 Cutaneous abscess of other sites | CPT/HCPCS: 99231; 99232 ==

== ENCOUNTER 2024-01-20 21:01 | Emergency (ER) | payer MEDICAID, SELFPAY ==
--- NOTE | 2024-01-20 | ECG_ITS ---
Test Reason : CHEST PAIN Blood Pressure : / mmHG Vent. Rate : 078 BPM Atrial Rate : 078 BPM P-R Int : 148 ms QRS Dur : 098 ms QT Int : 412 ms P-R-T Axes : 062 054 028 degrees QTc Int : 469 ms Normal sinus rhythm Normal ECG When compared with ECG of 20-SEP-2023 19:06, No significant change was found Referred By: Dallas Philip Electronically Signed By:Elgin Kingsley
--- NOTE | ~2024-01-20 | CT_ITS ---
EXAMINATION: CT HEAD WITHOUT CONTRAST CLINICAL INFORMATION: Headache left side COMPARISON: CT head from 09/20/2023 TECHNIQUE: Contiguous axial imaging was performed from the skull base to vertex without intravenous administration of contrast. This CT examination was performed using dose optimization techniques as appropriate, variously including the following: *Automated exposure control *Adjustment of mA and/or kV according to patient size (this includes techniques or standardized protocols for targeted exams where dose is matched to indication/reason for exam; i.e. extremities or head) *Use of iterative reconstruction technique DLP: 757 mGy-cm FINDINGS: There is no evidence of acute intracranial hemorrhage or territorial infarction. No abnormal mass effect or midline shift is seen. [place] to white matter differentiation is well preserved. No extra-axial fluid collections are identified. The ventricles are normal in size. There is no abnormal attenuation within the brain parenchyma. Chronic appearing fracture deformity of the tip of the nasal bone. Questionable chronic fracture deformity of the right zygomatic arch. The osseous structures and soft tissues are normal. Slight mucoperiosteal thickening of the right sphenoid sinus. The mastoid air cells and visualized portions of the paranasal sinuses are well aerated. CT/CT head/brain wo IV con IMPRESSION: 1. No acute intracranial pathology. 2. Chronic appearing fracture deformity of the tip of the nasal bone. Questionable chronic fracture deformity of the right zygomatic arch. Correlation with trauma history.
[2024-01-20 21:05] VITALS: BP 130/88; PULSE 86; O2SAT 97
[2024-01-20 21:18] VITALS: BP 128/86; PULSE 84; RESP 16; TEMP 36.7; O2SAT 98; BMI 26.5
[2024-01-20 21:34] LABS: Glucose, Whole Blood 106 mg/dL (60-115)
--- NOTE | 2024-01-20 21:43 | MHC.EDTECH ---
5 bags and 1 jacket on the floor in the laundry closet in the pod. Belongings not inventoried.
--- NOTE | 2024-01-20 22:00 | PC.NURSE ---
Pt A&Ox3, reports 10/10 left side frontal headache radiating to left eye feeling like pressure and radiating back of neck with left arm weakness. 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 Pt ambulated to BR independently with steady gait. Pt changed over to hospital attire, security changed over and belonging brought into pod.
[2024-01-20 22:10] LABS: MANUAL DIFF FLAG NO
[2024-01-20 22:12] LABS: Basophils Percent Auto 0.5 % (0-2); Eosinophils Absolute Auto 0.1 X10*3/uL (0.0-0.4); Eosinophils Percent Auto 0.8 % (0-4); Hematocrit 32.5 % (42.0-52.0); Hemoglobin 10.6 g/dl (14.0-18.0); Imm Gran Abs Auto 0.02 X10*3/uL (0.00-0.03); Imm Gran Pct Auto 0.2 % (0.0-0.4); Lymphocytes Absolute Auto 2.6 X10*3/uL (1.2-4.9); Lymphocytes Percent Auto 30.3 % (20-40); Mean Corpuscular HGB Conc 32.6 g/dl (31.0-36.0); Mean Corpuscular Hemoglobin 19.7 pg (27.0-33.0); Mean Platelet Volume 10.5 fL (9.4-12.4); Monocytes Percent Auto 12.1 % (2-11); Neutrophils Absolute Auto 4.8 x10*3/uL (2.0-8.3); Neutrophils Percent Auto 56.1 % (45-73); Platelet Count 288 X10*3/uL (160-400); Red Blood Count 5.38 X10*6/uL (4.60-5.80); Red Cell Distribution Width 15.8 % (11.0-16.0); White Blood Count 8.5 X10*3/uL (4.8-10.8)
[2024-01-20 22:25] LABS: Alanine Aminotransferase 178 U/L (0-40); Albumin Level 4.4 g/dL (3.5-5.0); Alkaline Phosphatase 77 U/L (39-117); Anion Gap 15 (12-20); Aspartate Amino Transferase 251 U/L (5-37); Bilirubin Total 0.7 mg/dL (0.0-1.0); Blood Urea Nitrogen 15 mg/dL (9-16); Calcium 9.7 mg/dL (8.4-10.2); Carbon Dioxide 24 mmol/L (22-29); Chloride 102 mmol/L (96-108); Creatinine Clr Calc Pharmacy 123.2; Estimated Glomerular Filt Rate > 60; Glucose Random 90 mg/dL (60-115); Sodium 137 mmol/L (135-145); Total Protein 8.1 g/dL (6.5-8.0)
[2024-01-20 22:32] LABS: Mean Corpuscular Volume 60.4 fL (80.0-98.0)
[2024-01-20 22:38] LABS: Troponin-I High Sensitivity < 2.7 ng/L (<3.5-35.0)
--- NOTE | 2024-01-20 23:21 | ED_ITS ---
HPI - Neuro Symptoms/Deficit General Chief Complaint: Stroke Stated Complaint: L SIDE NUMBNESS,CHEST PAIN Time Seen by Provider: 01/20/24 21:01 Source: patient Mode of arrival: ambulatory Limitations: no limitations History of Present Illness HPI Narrative: Patient homeless comes here complaining of come multiple body complaint chest pain body aches left-sided numbness but no weakness uses cocaine and heroin patient ambulatory as such Related Data Previous Rx's Medication Instructions Recorded bupropion HCl 300 mg 24 hr tablet, 300 mg PO DAILY #7 tabs 10/01/23 extended release clonidine HCl 0.1 mg tablet 0.1 mg PO DAILY #7 tabs 10/01/23 clonidine HCl 0.2 mg tablet 0.2 mg PO BEDTIME #7 tabs 10/01/23 dextroamphetamine-amphetamine ER 10 mg PO TID #21 caps 10/01/23 10 mg 24hr capsule,extend release (Adderall XR) doxycycline monohydrate 100 mg 100 mg PO Q12H #14 caps 10/01/23 capsule folic acid 1 mg tablet 1 mg PO DAILY #30 tabs 10/01/23 gabapentin 300 mg capsule 600 mg (2 x 300 mg) PO TID #21 caps 10/01/23 methadone 10 mg/mL oral 55 mg (5.5 mL) PO DAILY #0 mL 10/01/23 concentrate (Methadose) multivitamin (Daily-Jesenia tablet) 1 tab PO DAILY #30 tabs 10/01/23 nicotine (polacrilex) 4 mg buccal 4 mg buccal Q2H PRN Nicotine 10/01/23 lozenge Cravings #100 ea nicotine 21 mg/24 hr daily 21 mg transdermal DAILY #30 ea 10/01/23 transdermal patch sulfamethoxazole 800 1 tab PO BID #14 tabs 10/01/23 mg-trimethoprim 160 mg tablet (Bactrim DS) thiamine mononitrate (vit B1) 100 100 mg PO DAILY #30 tabs 10/01/23 mg tablet triamcinolone acetonide 0.1 % 1 appl topical BID #14 applicators 10/01/23 topical cream dextroamphetamine-amphetamine ER 10 mg PO TID #21 caps 10/07/23 10 mg 24hr capsule,extend release (Adderall XR) dextroamphetamine-amphetamine ER 10 mg PO TID #21 caps 10/14/23 10 mg 24hr capsule,extend release (Adderall XR) dextroamphetamine-amphetamine ER 10 mg PO TID #21 caps 10/22/23 10 mg 24hr capsule,extend release (Adderall XR) Allergies Allergy/AdvReac Type Severity Reaction Status Date / Time fish derived [FISH] Allergy Unknown UNKNOWN - Verified 01/20/24 21:16 NOT ANAPHYLAXIS PER PATIENT trazodone AdvReac Severe priapr Verified 01/20/24 21:18 Review of Systems 2 Review of Systems: Yes all other systems are reviewed and are negative [facility] Past Medical History Medical History IVDU (intravenous drug user) Alcohol dependence Recurrent major depression-severe PTSD (post-traumatic stress disorder) PTSD (post-traumatic stress disorder) Hep C w/o coma, chronic Surgical History History of surgery on arm Social History Social History Household Members: None Housing: Homeless Do you presently have visiting nurse or other home services: No Alcohol intake: current Alcohol intake frequency: 3 or more drinks per day Alcohol type: hard liquor Comment: pt refused bed alarm Patient Tobacco Use Status: Current everyday Tobacco user Tobacco use type: Cigarette Cigarette Packs Per Day: 2 Cigarettes Per Day: 40.0 Years Smoked: unknown e-Cigarette/Vaping Use: Currently Using Second Hand Smoke Exposure: No Substance Use Type: Crack/Cocaine and Opiates Advance Directives: No Advance Directives Information Provided: No service: Yes ([employer] Sexual orientation: Straight/Heterosexual Physical Exam 2 Vital Signs: Vital Signs: Last Vital Signs Temp 98.0 F 01/20/24 21:18 Pulse 84 01/20/24 23:51 Resp 16 01/20/24 23:51 BP 115/75 01/20/24 23:51 Pulse Ox 96 01/20/24 23:51 O2 Del Method Room Air 01/20/24 23:51 BMI result Body Mass Index 26.5 Appearance: Alert. Oriented X3. No acute distress. Eyes: PERRLA, No Nystagmus ENT: Pharynx normal. Oral Mucosa moist Neck: Normal inspection. Neck supple. CVS: Normal heart rate and rhythm. Pulses normal. Respiratory: No respiratory distress. Equal air entry bilateral, no wheezing/rales/rhonchi Abdomen: Soft and nontender. Bowel sounds are present, no mass palpable, no CVA tenderness Skin: Skin warm and dry. Normal skin color. Normal skin turgor. Extremities: No lower extremity edema. No calf tenderness Neuro: Oriented X 3. No motor deficit. Subjective left-sided sensory deficits.No cerebellar signs , cranial nerves II-XII intact Medical Decision Making Medical Decision Making MDM Narrative: Patient with vague multiple symptoms has subjective left-sided numbness but able to have cold temperature and pain sensation no motor deficit ambulatory in the ER workup is negative for any acute CVA or coronary event discharge patient home Differential Diagnosis Differential Diagnoses: The differential diagnosis associated with the presentation includes Lab Data [facility] Lab Attestation statement: I reviewed the patient's lab results. 01/20/24 22:05 01/20/24 22:05 Labs: Lab Results 01/20/24 01/20/24 Range/Units 21:23 22:05 WBC 8.5 (4.8-10.8) X10*3/uL RBC 5.38 (4.60-5.80) X10*6/uL Hgb 10.6 L (14.0-18.0) g/dl Hct 32.5 L (42.0-52.0) % MCV 60.4 L (80.0-98.0) fL MCH 19.7 L (27.0-33.0) pg MCHC 32.6 (31.0-36.0) g/dl RDW 15.8 (11.0-16.0) % Plt Count 288 (160-400) X10*3/uL MPV 10.5 (9.4-12.4) fL Immature Gran % (Auto) 0.2 (0.0-0.4) % Neut % (Auto) 56.1 (45-73) % Lymph % (Auto) 30.3 (20-40) % Frio % (Auto) 12.1 H (2-11) % Eos % (Auto) 0.8 (0-4) % Baso % (Auto) 0.5 (0-2) % Lymph # (Auto) 2.6 (1.2-4.9) X10*3/uL Frio # (Auto) 1.0 (0.1-1.2) X10*3/uL Eos # (Auto) 0.1 (0.0-0.4) X10*3/uL Baso # (Auto) 0.0 (0.0-0.2) X10*3/uL Abs Immat Gran (auto) 0.02 (0.00-0.03) X10*3/uL Absolute Neuts (auto) 4.8 (2.0-8.3) x10*3/uL Absolute Nucleated RBC 0.000 (0.0-0.012) X10*3/uL Nucleated RBC % (auto) 0.0 (0.0-0.2) /100WBC Sodium 137 (135-145) mmol/L Potassium 4.0 (3.3-5.1) mmol/L Chloride 102 (96-108) mmol/L Carbon Dioxide 24 (22-29) mmol/L Anion Gap 15 (12-20) BUN 15 (9-16) mg/dL Creatinine 0.79 (0.5-1.4) mg/dL Estim Creat Clear Calc 123.2 Estimated GFR > 60 POC Glucose 106 (60-115) mg/dL Random Glucose 90 (60-115) mg/dL Calcium 9.7 D (8.4-10.2) mg/dL Total Bilirubin 0.7 (0.0-1.0) mg/dL AST 251 H (5-37) U/L ALT 178 H (0-40) U/L Alkaline Phosphatase 77 (39-117) U/L Troponin I High Sens < 2.7 (<3.5-35.0) ng/L Total Protein 8.1 H (6.5-8.0) g/dL Albumin 4.4 (3.5-5.0) g/dL Independent Interpretation I performed an independent interpretation of an: EKG and CT Scan Interpretation: Normal sinus rhythm heart rate 78 beats per minute normal interval normal axis no acute ST T wave changes no acute ischemia Radiology Impression Discussion of test interpretation with radiology: I have reviewed the radiologist's reading. Discharge Plan Discharge Clinical Impression: Polysubstance abuse Patient Disposition: Home, Self-Care Instructions: Polysubstance Abuse (ED) Additional Instructions: Take medication and follow with detox Prescriptions: No Action clonidine HCl 0.1 mg Tablet 0.1 mg PO DAILY Qty: 7 4RF Protocol: Hold for SBP< HOLD for SBP < : 90 triamcinolone acetonide 0.1 % Cream 1 appl topical BID Qty: 14 4RF Protocol: Apply to: Apply to: affected areas clonidine HCl 0.2 mg Tablet 0.2 mg PO BEDTIME Qty: 7 4RF Protocol: Hold for SBP< HOLD for SBP < : 90 doxycycline monohydrate 100 mg Capsule 100 mg PO Q12H Qty: 14 0RF nicotine 21 mg/24 hr Patch 24 Hour 21 mg transdermal DAILY Qty: 30 0RF gabapentin 300 mg Capsule 600 mg PO TID Qty: 21 4RF methadone [Methadose] 10 mg/mL Concentrate 55 mg PO DAILY Qty: 0 0RF Rx Instructions: Partial Fill upon patient request. nicotine (polacrilex) 4 mg Lozenge 4 mg buccal Q2H PRN (Reason: Nicotine Cravings) Qty: 100 0RF bupropion HCl 300 mg Tablet Extended Release 24 Hr 300 mg PO DAILY Qty: 7 4RF multivitamin [Daily-Jesenia] Tablet 1 tab PO DAILY Qty: 30 0RF folic acid 1 mg Tablet 1 mg PO DAILY Qty: 30 0RF thiamine mononitrate (vit B1) 100 mg Tablet 100 mg PO DAILY Qty: 30 0RF sulfamethoxazole-trimethoprim [Bactrim DS] 800-160 mg tablet 1 tab PO BID Qty: 14 0RF dextroamphetamine-amphetamine [Adderall XR] 10 mg capsule,extended release 24hr 10 mg PO TID Qty: 21 0RF Rx Instructions: 0900, 1200, 1500 dextroamphetamine-amphetamine [Adderall XR] 10 mg capsule,extended release 24hr 10 mg PO TID Qty: 21 0RF Rx Instructions: Partial Fill upon patient request. dextroamphetamine-amphetamine [Adderall XR] 10 mg capsule,extended release 24hr 10 mg PO TID Qty: 21 0RF Rx Instructions: Partial Fill upon patient request. dextroamphetamine-amphetamine [Adderall XR] 10 mg capsule,extended release 24hr 10 mg PO TID Qty: 21 0RF Rx Instructions: Partial Fill upon patient request. Interventions: ED Discharge Assessment Last Done: 01/21/24 00:12 Discharge Date/Time: 01/21/24 00:45
[2024-01-20 23:51] VITALS: BP 115/75; PULSE 84; RESP 16; O2SAT 96
== END 2024-01-21 00:45 | disposition home or self-care (01) ==
PROVIDERS: Emergency Provider Internal Medicine
DX: F14.10 Cocaine abuse, uncomplicated (principal); F11.10 Opioid abuse, uncomplicated; R51.9 Headache, unspecified
CPT/HCPCS: 36415; 70450; 80053; 82947; 84484; 85025; 93005; 99284

== ENCOUNTER → 2024-01-20 21:15 | Outpatient (BNV) | payer MEDICAID, SELFPAY | PROVIDERS: Emergency Provider Internal Medicine; Visit Provider Internal Medicine Cardiovascular Disease | DX: R07.9 Chest pain, unspecified (principal) | CPT/HCPCS: 93010 ==

== ENCOUNTER 2024-02-03 00:47 | Inpatient (IN) | payer OTHER, MEDICAID, SELFPAY ==
[2024-02-03] VITALS (9 sets, daily range): BP systolic 124–190; BP diastolic 75–98; PULSE 64–117; RESP 16–20; TEMP 36.2–37.4; O2SAT 92–98; BMI 25.7
--- NOTE | 2024-02-03 | ECG_ITS ---
Test Reason : CHECK QTC Blood Pressure : / mmHG Vent. Rate : 097 BPM Atrial Rate : 097 BPM P-R Int : 122 ms QRS Dur : 094 ms QT Int : 392 ms P-R-T Axes : 058 051 047 degrees QTc Int : 497 ms Normal sinus rhythm Possible Left atrial enlargement Prolonged QT Abnormal ECG When compared with ECG of 20-JAN-2024 21:15, No significant change was found Referred By: Andressa Schultz Electronically Signed By:BURAK TIMMONS
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
[2024-02-03 01:46] LABS: MANUAL DIFF FLAG NO
[2024-02-03 01:47] LABS: Basophils Percent Auto 0.4 % (0-2); Eosinophils Absolute Auto 0.1 X10*3/uL (0.0-0.4); Eosinophils Percent Auto 0.5 % (0-4); Hematocrit 27.3 % (42.0-52.0); Hemoglobin 8.8 g/dl (14.0-18.0); Imm Gran Abs Auto 0.03 X10*3/uL (0.00-0.03); Imm Gran Pct Auto 0.3 % (0.0-0.4); Lymphocytes Absolute Auto 1.6 X10*3/uL (1.2-4.9); Lymphocytes Percent Auto 17.2 % (20-40); Mean Corpuscular HGB Conc 32.2 g/dl (31.0-36.0); Mean Platelet Volume 9.1 fL (9.4-12.4); Monocytes Absolute Auto 1.2 X10*3/uL (0.1-1.2); Monocytes Percent Auto 12.6 % (2-11); Neutrophils Absolute Auto 6.4 x10*3/uL (2.0-8.3); Platelet Count 319 X10*3/uL (160-400); Red Cell Distribution Width 17.8 % (11.0-16.0); White Blood Count 9.3 X10*3/uL (4.8-10.8)
[2024-02-03 01:48] LABS: Appearance Urine Clear; Color Urine Yellow; Glucose Urine UA Negative (Negative); Leukocyte Esterase Urine Negative (Negative); Nitrite Urine Negative (Negative); Specific Gravity - Urine 1.015 (1.005-1.025); UMIC TRIGGER UACC YES; Urine Blood Trace (Negative); Urine Ketones Trace mg/dL (Negative); Urine Protein 30 (1+) mg/dL (Neg-Trace)
[2024-02-03 01:53] LABS: Bacteria Urine None Seen (None Seen); Squamous Epithelial Cell Urine 0-2 /HPF (0-2); WBC Urine 0-5 /HPF (0-5)
[2024-02-03 02:01] LABS: Amphetamine Screen Urine Not Detected (Not Detect); Barbiturates, Urine Not Detected (Not Detect); Benzodiazepines Screen Urine Not Detected (Not Detect); Cannabinoid Screen Urine Not Detected (Not Detect); Cocaine Screen Urine POSITIVE (Not Detect); Fentanyl, urine POSITIVE (Not Detect); Opiate Screen Urine POSITIVE (Not Detect); Phencyclidine Screen Urine Not Detected (Not Detect)
[2024-02-03 02:08] LABS: Alanine Aminotransferase 87 U/L (0-40); Alkaline Phosphatase 64 U/L (39-117); Anion Gap 19 (12-20); Aspartate Amino Transferase 104 U/L (5-37); Blood Urea Nitrogen 11 mg/dL (9-16); Calcium 8.9 mg/dL (8.4-10.2); Carbon Dioxide 21 mmol/L (22-29); Chloride 102 mmol/L (96-108); Creatinine Clr Calc Pharmacy 133.3; Estimated Glomerular Filt Rate > 60; Ethanol 103 mg/dL; Glucose Random 88 mg/dL (60-115); Potassium 3.7 mmol/L (3.3-5.1); Sodium 138 mmol/L (135-145); Total Protein 7.3 g/dL (6.5-8.0)
--- NOTE | 2024-02-03 02:19 | PC.NURSE ---
Pt arrived via ems found outside with PD. PT reports using fent, heroin and cocaine. States he has been trying to kill himself for the past week. PT changed over, belongings secured by security label and put in locker. Labs drawn, urine collected. VSS. Sitter at bedside. Plan of care ongoing
--- NOTE | 2024-02-03 03:22 | MHC.CARE ---
Pt is being held on a section 12 that is located in his hard chart in the main ED until a dual dx bed can be found for him.
--- NOTE | 2024-02-03 07:28 | PC.NURSE ---
Pt resting in bed, eyes closed breathing even and unlabored. PO ativan not given d/t not having anxious presentation and pt wanting to sleep.
[2024-02-03] MEDS: LORazepam 1 MG TABLET 2 MG PO (07:44)
--- NOTE | 2024-02-03 08:51 | PC.NURSE ---
Assumed care of patient at approximately 0835. This RN brought patient over from main ER, patient verbalizes SI with plan to shoot himself. Pt also requesting detox. Pt is calm and cooperative, alert and oriented x4, respirations even and unlabored, no apparent distress. Pt now laying in bed, no apparent distress noted
[2024-02-03 09:47] LABS: COVID-19 Test Negative (Negative); IDNOW Serial# 08D9AD1C
[2024-02-03] MEDS: chlordiazePOXIDE HCl 25 MG CAPSULE 50 MG PO ×2 (18:45→23:37)
--- NOTE | 2024-02-03 18:47 | PC.NURSE ---
patient exited his room moaning, requesting food and stating that he does not feel well. This RN completed CIWA which he scored [address] rashad molina, Librium ordered and administered per STEPHANE
--- NOTE | 2024-02-03 19:05 | PC.NURSE ---
patient appears to remain at rest at present respirations are even and unlabpred patient appears in no distress
--- NOTE | 2024-02-03 21:50 | PC.NURSE ---
t/w attmepte dto verify methadone dose for client t/w is surprised client has not metnionedto a prior staff to verify dose.
--- NOTE | 2024-02-03 23:20 | PC.NURSE ---
patient calling out in the air, patient reports he feels sx of etoh wd, in t/w's opinion, more symptoms poitn to opiate wd, obtaining vs and will report score to provider. t/w had requested muscle relaxer and hydroxyzine to address OWS, provider has not ordered.
--- NOTE | 2024-02-04 01:05 | PC.NURSE ---
patient continues to appears restless in bed
--- NOTE | 2024-02-04 01:06 | PC.NURSE ---
late entry, patient did mention to t/w he has been off daily methadone for a few weeks
[2024-02-04 08:01] VITALS: BP 142/92; PULSE 83; RESP 18; TEMP 37.2; O2SAT 98
[2024-02-04] MEDS: LORazepam 1 MG TABLET 2 MG PO ×2 (08:22→20:39)
--- NOTE | 2024-02-04 08:30 | PC.NURSE ---
patient medicated per the MAR w/ prn ativan.
--- NOTE | 2024-02-04 10:36 | PC.NURSE ---
patient appears to be sleeping at this time with even and unlabored respirations. no obvious signs/symptoms of distress noted.
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
[2024-02-04 15:42] VITALS: BP 126/68; PULSE 85; RESP 17; O2SAT 97
[2024-02-04] MEDS: cloNIDine HCL 0.1 MG TABLET PO ×2 (16:28→20:38)
[2024-02-04] MEDS: methADONE HCl 20 MG/2 ML ORAL.CONC 30 MG PO (16:29)
[2024-02-04 16:30] VITALS: BP 126/68
--- NOTE | 2024-02-04 17:01 | PC.ADMIT ---
Pt admitted onto the unit from [facility], via w/c on CV at 1352. When pt arrived on the unit, he was willing/able to have skin check, VS, and weight completed. At that point, pt went to bed and fell asleep, appearing to be sedated. Per crisis eval, pt was found in the streets using fentanyl by [place] [employer] and was brought to [facility] ED. He was also making suicidal statements about getting a gun to blow his head off . Pt appears stated age. Skin check revealed several small and superficial scabbed over scratches on UE and LENNOX. Pt was given an initial methadone dose of 30mg for today, and will start on 40mg tomorrow. Addictions consult placed.
[2024-02-04 20:30] VITALS: BP 156/65; PULSE 95; RESP 18; TEMP 36.9; O2SAT 99
[2024-02-04] MEDS: Acetaminophen 325 MG TABLET 650 MG PO (20:39)
[2024-02-05] MEDS: LORazepam 1 MG TABLET 2 MG PO ×2 (04:31→17:34)
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
[2024-02-05 10:00] VITALS: BP 114/65; PULSE 105; RESP 16; TEMP 37.5; O2SAT 97
[2024-02-05] MEDS: methADONE HCl 20 MG/2 ML ORAL.CONC 40 MG PO (10:07)
[2024-02-05] MEDS: Multivitamin TABLET 1 TAB PO (10:08)
[2024-02-05] MEDS: Thiamine HCL 100 MG TABLET PO (10:08)
[2024-02-05] MEDS: Folic Acid 1 MG TABLET PO (10:08)
[2024-02-05] MEDS: Nicotine 21 MG PATCH.TD24 TRANSDERMA (10:08)
[2024-02-05] MEDS: cloNIDine HCL 0.1 MG TABLET PO ×3 (10:09→20:42)
[2024-02-05] MEDS: Acetaminophen 325 MG TABLET 650 MG PO ×2 (10:21→17:33)
[2024-02-05] MEDS: LORazepam 1 MG TABLET PO ×3 (10:24→20:42)
--- NOTE | 2024-02-05 11:23 | MHC.RECOVRN ---
Met with pt to follow up after receiving 40 mg methadone this morning. Provider, Naheed, also present. Pt laying in bed, appears very uncomfortable, diaphoretic, restless, reporting nausea, vomiting, diarrhea, body aches. Spoke with Noemy at [facility], pt last dosed at [facility] on 01/19/24, 120 mg. Plan to continue methadone titration. Pt denies questions or concerns at this time. Discussed with provider, plan to administer additional 10 mg methadone now and 10 mg prn later this evening. Pt to receive 60 mg tomorrow.
[2024-02-05] MEDS: Ondansetron ODT 4 MG TAB.RAPDIS TRANSLINGU ×2 (11:46→17:34)
[2024-02-05] MEDS: Ibuprofen 600 MG TABLET PO ×2 (11:46→20:42)
[2024-02-05] MEDS: methADONE HCl 20 MG/2 ML ORAL.CONC 10 MG PO ×2 (11:46→17:36)
[2024-02-05 13:00] VITALS: BP 118/84; PULSE 100; RESP 16; TEMP 36.9; O2SAT 99
[2024-02-05] MEDS: hydrOXYzine HCL 25 MG TABLET PO (14:24)
[2024-02-05 20:38] VITALS: BP 115/53; PULSE 86; RESP 18; TEMP 37.2; O2SAT 96
--- NOTE | 2024-02-05 21:29 | PC.NURSE ---
Mark was given Ativan PO prn for withdrawal symtoms and CIWA score of 9. Patient was given Motrin PO prn for headache /10
[2024-02-06] MEDS: LORazepam 1 MG TABLET PO ×5 (00:13→20:09)
--- NOTE | 2024-02-06 00:15 | PC.NURSE ---
Mark scored a 7 on the CIWA scale, was medicated with Ativan 1 mg PO prn.
--- NOTE | 2024-02-06 07:26 | P.PNPSI_ITS ---
Subjective Subjective Date of Service: 02/06/24 Reason For Visit: crisis Subjective Notes: Conditional Voluntary Interim History: Reviewed with Dr. Gao. active on unit, social with peers. irritable. guarded. pt reports feeling crappy today; pt stated, I'm still withdrawing, I need higher doses of methadone . pt being followed by addiction medicine. pt denies SI/HI/VH/AH. Pt requesting to be restarted on Gabapentin for neuropathy. Start: Gabapentin 300mg PO TID Medication Compliance: Yes Side effects from medications: No Attending Groups: No Review of Systems Constitutional: Reports as per HPI Eyes: Reports as per HPI Reports as per HPI Cardiovascular: Reports as per HPI Respiratory: Reports as per HPI Gastrointestinal: Reports as per HPI Genitourinary: Reports as per HPI Musculoskeletal: Reports as per HPI Skin/Breast: Reports as per HPI Reports as per HPI Psychiatric: Reports as per HPI Endocrine: Reports as per HPI Hematologic/Lymphatic: Reports as per HPI Allergic/Immunologic: Reports as per HPI Mental Status Exam Mental Status Exam Narrative: Pt is alert and oriented; behavior is cooperative, irritable, guarded; dressed in hospital gown with unkempt hair, poor hygiene; mood is described as crappy ; eye contact appropriate; Speech is normal rate, volume and prosody and not pressured; thought process is organized and goal directed; Thought content is on tx; denies SI/HI/VH/AH. Diagnostics Vital Signs (24Hr): Vital Signs - 24 hr 02/05/24 10:00 02/05/24 13:00 02/05/24 20:38 Temperature 99.5 F 98.5 F 99.0 F Pulse Rate 105 H 100 86 Respiratory Rate 16 16 18 Blood Pressure 114/65 118/84 115/53 L Pulse Oximetry 97 99 96 Oxygen Delivery Method Room Air Room Air Room Air BMI result Body Mass Index 25.7 Labs 02/03/24 01:37 02/03/24 01:37 Medications Medications Current Medications Acetaminophen (Acetaminophen 325 Mg Tablet) 650 mg PO Q6H PRN PRN Reason: Headache/Pain Mild Scale (1-3) Last Admin: 02/05/24 17:33 Dose: 650 mg Al Hydroxide/Mg Hydroxide (Magnesium Hydrox/Alum Hydrox 30 Ml Oral.Susp) 30 ml PO Q6H PRN PRN Reason: Heartburn/Nausea Clonidine HCl (Clonidine Hcl 0.1 Mg Tablet) 0.1 mg PO TID [facility]; Protocol Last Admin: 02/05/24 20:42 Dose: 0.1 mg Folic Acid (Folic Acid 1 Mg Tablet) 1 mg PO DAILY [facility] Last Admin: 02/05/24 10:08 Dose: 1 mg Hydroxyzine HCl (Hydroxyzine Hcl 25 Mg Tablet) 25 mg PO Q6H PRN PRN Reason: Anxiety Last Admin: 02/05/24 14:24 Dose: 25 mg Ibuprofen (Ibuprofen 600 Mg Tablet) 600 mg PO Q6H PRN PRN Reason: Pain, Moderate(Pain Scale 4-6) Last Admin: 02/05/24 20:42 Dose: 600 mg Loperamide HCl (Loperamide Hcl 2 Mg Capsule) 4 mg PO Q4H PRN PRN Reason: Loose Stool Lorazepam (Lorazepam 1 Mg Tablet) 1 mg PO Q4H PRN PRN Reason: CIWA score 6-12 Last Admin: 02/06/24 00:13 Dose: 1 mg Lorazepam (Lorazepam 1 Mg Tablet) 2 mg PO Q4H PRN PRN Reason: CIWA 13 and above Last Admin: 02/05/24 17:34 Dose: 2 mg Magnesium Hydroxide (Milk Of Magnesia 30 Ml Oral.Susp) 30 ml PO DAILY PRN PRN Reason: Constipation Methadone HCl (Methadone Hcl 20 Mg/2 Ml Oral.Conc) 60 mg PO DAILY [facility] Methadone HCl (Methadone Hcl 20 Mg/2 Ml Oral.Conc) 10 mg PO ONCE PRN PRN Reason: Opiate Withdrawal Last Admin: 02/05/24 17:36 Dose: 10 mg Multivitamins/Vitamin C (Multivitamin Tablet) 1 tab PO DAILY [facility] Last Admin: 02/05/24 10:08 Dose: 1 tab Nicotine (Nicotine 21 Mg Patch.Td24) 21 mg TRANSDERMA DAILY [facility] Last Admin: 02/05/24 10:08 Dose: 21 mg Nicotine Polacrilex (Nicotine Polacrilex 2 Mg Gum) 4 mg BUCCAL Q2H PRN PRN Reason: Nicotine Cravings Ondansetron HCl (Ondansetron Odt 4 Mg Tab.Rapdis) 4 mg TRANSLINGU Q6H PRN PRN Reason: Nausea and Vomiting Last Admin: 02/05/24 17:34 Dose: 4 mg Thiamine HCl (Thiamine Hcl 100 Mg Tablet) 100 mg PO DAILY [facility] Last Admin: 02/05/24 10:08 Dose: 100 mg Allergies Allergies Allergy/AdvReac Type Severity Reaction Status Date / Time fish derived [FISH] Allergy Unknown UNKNOWN - Verified 02/03/24 13:02 NOT ANAPHYLAXIS PER PATIENT trazodone AdvReac Severe priapr Verified 02/03/24 13:02 Assessment & Plan Assessment & Plan (1) MDD (major depressive disorder), recurrent episode, severe: Status: Acute Code(s): F33.2 - Major depressive disorder, recurrent severe without psychotic features (2) PTSD (post-traumatic stress disorder): Status: Acute Code(s): F43.10 - Post-traumatic stress disorder, unspecified (3) Opioid use disorder: Status: Acute Code(s): F11.90 - Opioid use, unspecified, uncomplicated (4) Cocaine use disorder: Status: Acute Code(s): F14.10 - Cocaine abuse, uncomplicated (5) Alcohol use disorder, moderate, dependence: Status: Resolved Code(s): F10.20 - Alcohol dependence, uncomplicated Plan Patient is a 43 year old male with hx of MDD, PTSD, ETOH abuse, cocaine use d/o, and opioid use d/o who was seen in ER d/t suicidal ideation secondary to life stressors and substance abuse. Plan: CV 15 minute safety checks CIWA [facility] consult; started on methadone. referral to outpatient prescriber and therapist referral to substance abuse program discharge planning 02/05: active on unit, social with peers. irritable. guarded. pt reports feeling crappy today; pt stated, I'm still withdrawing, I need higher doses of methadone . pt being followed by addiction medicine. pt denies SI/HI/VH/AH. Pt requesting to be restarted on Gabapentin for neuropathy. Start: Gabapentin 300mg PO TID Patient educated on: diagnosis, medication risk/benefits and substance abuse Informed Consent: understands Reason for continued inpatient stay Substantial Risk for: med/psych decompensation Time Spent With Patient Time: Total time managing care of this patient today _20___ minutes.
[2024-02-06 07:45] VITALS: BP 104/63; PULSE 78; RESP 16; TEMP 36.7; O2SAT 98
[2024-02-06] MEDS: cloNIDine HCL 0.1 MG TABLET PO ×3 (08:45→20:09)
[2024-02-06] MEDS: Thiamine HCL 100 MG TABLET PO (08:45)
[2024-02-06] MEDS: Folic Acid 1 MG TABLET PO (08:46)
[2024-02-06] MEDS: Multivitamin TABLET 1 TAB PO (08:46)
[2024-02-06] MEDS: methADONE HCl 20 MG/2 ML ORAL.CONC 60 MG PO (08:48)
[2024-02-06] MEDS: Nicotine 21 MG PATCH.TD24 TRANSDERMA (08:48)
[2024-02-06] MEDS: Nicotine Polacrilex 2 MG GUM 4 MG BUCCAL (09:32)
[2024-02-06] MEDS: Ibuprofen 600 MG TABLET PO ×2 (09:32→20:09)
[2024-02-06] MEDS: Acetaminophen 325 MG TABLET 650 MG PO (11:20)
[2024-02-06 11:54] LABS: COVID-19 Test Negative (Negative); IDNOW Serial# 08D9AD1C
[2024-02-06 12:00] VITALS: BP 107/73; PULSE 92; RESP 16; TEMP 36.8; O2SAT 100
--- NOTE | 2024-02-06 14:49 | MHC.RECOVRN ---
Met with pt in 324-2 to follow up and provide support as well as check on methadone dosing. Pt sleeping and did not wake easily to voice. Pt reports that the current dose of 60mg is not holding me . He describes fingers and toes numb, H/A, hot and cold sweats, shakey. Pt' s methadone just increased to 60mg this AM. ? Educated pt on ETOH W/D and methadone action. Requested Nurse Madison to add COWS to pt's routine assessments. ACS nurse will F/U tomorrow. Report to nurse Madison and ACS team. T/w available as needed.
--- NOTE | 2024-02-06 15:55 | MHC.RECOVRN ---
Met with pt in 324-2 to follow up and provide support as well as check on methadone dosing. Pt sleeping and did not wake easily to voice. Pt reports that the current dose of 60mg is not holding me . He describes fingers and toes numb, H/A, hot and cold sweats, shakey. Pt' s methadone just increased to 60mg this AM. ? Discussed with staff ETOH W/D and methadone action and they will continue to educate and reinforce this with pt. Requested Nurse Madison to add COWS to pt's routine assessments. ACS nurse will F/U tomorrow. Report to nurse Madison and ACS team. T/w available as needed.
[2024-02-06 16:33] VITALS: BP 114/72; PULSE 96; TEMP 35.9
[2024-02-06] MEDS: Gabapentin 300 MG CAPSULE PO ×2 (17:10→20:09)
[2024-02-06 20:11] VITALS: BP 118/58; PULSE 83; RESP 16; TEMP 36.1; O2SAT 98
--- NOTE | 2024-02-06 20:13 | PC.NURSE ---
Patient given Ativan 1 mg for CIWA score of 7, Patient given Motrin Po prn for headache pain 5/10
[2024-02-07] MEDS: LORazepam 1 MG TABLET PO ×4 (00:09→21:08)
[2024-02-07 00:10] VITALS: PULSE 60; RESP 16; O2SAT 96
[2024-02-07 07:40] VITALS: BP 134/79; PULSE 66; RESP 16; TEMP 36.4; O2SAT 98
[2024-02-07 09:30] VITALS: PULSE 66
[2024-02-07] MEDS: Gabapentin 300 MG CAPSULE PO ×3 (09:43→21:08)
[2024-02-07] MEDS: Thiamine HCL 100 MG TABLET PO (09:44)
[2024-02-07] MEDS: cloNIDine HCL 0.1 MG TABLET PO ×3 (09:44→21:08)
[2024-02-07] MEDS: Multivitamin TABLET 1 TAB PO (09:44)
[2024-02-07] MEDS: Folic Acid 1 MG TABLET PO (09:44)
[2024-02-07] MEDS: methADONE HCl 20 MG/2 ML ORAL.CONC 60 MG PO (09:45)
[2024-02-07] MEDS: Nicotine Polacrilex 2 MG GUM 4 MG BUCCAL ×2 (09:45→14:42)
[2024-02-07] MEDS: Nicotine 21 MG PATCH.TD24 TRANSDERMA (09:47)
--- NOTE | 2024-02-07 11:56 | P.PNPSI_ITS ---
Subjective Subjective Date of Service: 02/07/24 Reason For Visit: crisis Subjective Notes: Conditional Voluntary Interim History: Reviewed with Dr. Gao. active on unit, social with peers. brighter affect. showered. Pt stated, I'm feeling better than yesterday. I sometimes hear my 's voice . Pt continues to report interest in substance abuse program. denies SI/HI/VH. Medication Compliance: Yes Side effects from medications: No Review of Systems Constitutional: Reports as per HPI Eyes: Reports as per HPI Reports as per HPI Cardiovascular: Reports as per HPI Respiratory: Reports as per HPI Gastrointestinal: Reports as per HPI Genitourinary: Reports as per HPI Musculoskeletal: Reports as per HPI Skin/Breast: Reports as per HPI Reports as per HPI Psychiatric: Reports as per HPI Endocrine: Reports as per HPI Hematologic/Lymphatic: Reports as per HPI Allergic/Immunologic: Reports as per HPI Mental Status Exam Mental Status Exam Narrative: Pt is alert and oriented; behavior is cooperative and calm; dressed in casual attire, showered; mood is described as better than yesterday ; eye contact appropriate; Speech is normal rate, volume and prosody and not pressured; thought process is organized and goal directed; Thought content is on tx; denies SI/HI/VH. Pt reports auditory hallucinations at times of his who . Diagnostics Vital Signs (24Hr): Vital Signs - 24 hr 02/06/24 12:00 02/06/24 16:33 02/06/24 20:11 Temperature 98.2 F 96.7 F L 97 F Pulse Rate 92 96 83 Respiratory Rate 16 16 Blood Pressure 107/73 114/72 118/58 L Pulse Oximetry 100 98 Oxygen Delivery Method Room Air Room Air 02/07/24 00:10 02/07/24 07:40 Temperature 97.5 F Pulse Rate 60 66 Respiratory Rate 16 16 Blood Pressure 134/79 Pulse Oximetry 96 98 Oxygen Delivery Method Room Air Room Air BMI result Body Mass Index 25.7 Labs 02/03/24 01:37 02/03/24 01:37 Labs: Laboratory Results - last 48 hr 02/06/24 11:32 COVID-19 ([facility]) Negative COVID-19 Clin Com See Note Medications Medications Current Medications Acetaminophen (Acetaminophen 325 Mg Tablet) 650 mg PO Q6H PRN PRN Reason: Headache/Pain Mild Scale (1-3) Last Admin: 02/06/24 11:20 Dose: 650 mg Al Hydroxide/Mg Hydroxide (Magnesium Hydrox/Alum Hydrox 30 Ml Oral.Susp) 30 ml PO Q6H PRN PRN Reason: Heartburn/Nausea Clonidine HCl (Clonidine Hcl 0.1 Mg Tablet) 0.1 mg PO TID [facility]; Protocol Last Admin: 02/07/24 09:44 Dose: 0.1 mg Folic Acid (Folic Acid 1 Mg Tablet) 1 mg PO DAILY [facility] Last Admin: 02/07/24 09:44 Dose: 1 mg Gabapentin (Gabapentin 300 Mg Capsule) 300 mg PO TID [facility] Last Admin: 02/07/24 09:43 Dose: 300 mg Hydroxyzine HCl (Hydroxyzine Hcl 25 Mg Tablet) 25 mg PO Q6H PRN PRN Reason: Anxiety Last Admin: 02/05/24 14:24 Dose: 25 mg Ibuprofen (Ibuprofen 600 Mg Tablet) 600 mg PO Q6H PRN PRN Reason: Pain, Moderate(Pain Scale 4-6) Last Admin: 02/06/24 20:09 Dose: 600 mg Loperamide HCl (Loperamide Hcl 2 Mg Capsule) 4 mg PO Q4H PRN PRN Reason: Loose Stool Lorazepam (Lorazepam 1 Mg Tablet) 1 mg PO Q4H PRN PRN Reason: CIWA score 6-12 Last Admin: 02/07/24 00:09 Dose: 1 mg Lorazepam (Lorazepam 1 Mg Tablet) 2 mg PO Q4H PRN PRN Reason: CIWA 13 and above Last Admin: 02/05/24 17:34 Dose: 2 mg Magnesium Hydroxide (Milk Of Magnesia 30 Ml Oral.Susp) 30 ml PO DAILY PRN PRN Reason: Constipation Methadone HCl (Methadone Hcl 20 Mg/2 Ml Oral.Conc) 60 mg PO DAILY [facility] Last Admin: 02/07/24 09:45 Dose: 60 mg Multivitamins/Vitamin C (Multivitamin Tablet) 1 tab PO DAILY [facility] Last Admin: 02/07/24 09:44 Dose: 1 tab Nicotine (Nicotine 21 Mg Patch.Td24) 21 mg TRANSDERMA DAILY [facility] Last Admin: 02/07/24 09:47 Dose: 21 mg Nicotine Polacrilex (Nicotine Polacrilex 2 Mg Gum) 4 mg BUCCAL Q2H PRN PRN Reason: Nicotine Cravings Last Admin: 02/07/24 09:45 Dose: 4 mg Ondansetron HCl (Ondansetron Odt 4 Mg Tab.Rapdis) 4 mg TRANSLINGU Q6H PRN PRN Reason: Nausea and Vomiting Last Admin: 02/05/24 17:34 Dose: 4 mg Thiamine HCl (Thiamine Hcl 100 Mg Tablet) 100 mg PO DAILY [facility] Last Admin: 02/07/24 09:44 Dose: 100 mg Allergies Allergies Allergy/AdvReac Type Severity Reaction Status Date / Time fish derived [FISH] Allergy Unknown UNKNOWN - Verified 02/03/24 13:02 NOT ANAPHYLAXIS PER PATIENT trazodone AdvReac Severe priapr Verified 02/03/24 13:02 Assessment & Plan Assessment & Plan (1) MDD (major depressive disorder), recurrent episode, severe: Status: Acute Code(s): F33.2 - Major depressive disorder, recurrent severe without psychotic features (2) PTSD (post-traumatic stress disorder): Status: Acute Code(s): F43.10 - Post-traumatic stress disorder, unspecified (3) Opioid use disorder: Status: Acute Code(s): F11.90 - Opioid use, unspecified, uncomplicated (4) Cocaine use disorder: Status: Acute Code(s): F14.10 - Cocaine abuse, uncomplicated (5) Alcohol use disorder, moderate, dependence: Status: Resolved Code(s): F10.20 - Alcohol dependence, uncomplicated Plan Patient is a 43 year old male with hx of MDD, PTSD, ETOH abuse, cocaine use d/o, and opioid use d/o who was seen in ER d/t suicidal ideation secondary to life stressors and substance abuse. Plan: CV 15 minute safety checks CIWA [facility] consult; started on methadone. referral to outpatient prescriber and therapist referral to substance abuse program discharge planning 02/05: active on unit, social with peers. irritable. guarded. pt reports feeling crappy today; pt stated, I'm still withdrawing, I need higher doses of methadone . pt being followed by addiction medicine. pt denies SI/HI/VH/AH. Pt requesting to be restarted on Gabapentin for neuropathy. Start: Gabapentin 300mg PO TID 02/06:active on unit, social with peers. brighter affect. showered. Pt stated, I'm feeling better than yesterday. I sometimes hear my 's voice . Pt continues to report interest in substance abuse program. denies SI/HI/VH. continue current tx plan. Patient educated on: diagnosis, medication risk/benefits, substance abuse and therapeutic strategies Informed Consent: understands Reason for continued inpatient stay Substantial Risk for: med/psych decompensation Time Spent With Patient Time: Total time managing care of this patient today _20___ minutes.
[2024-02-07 12:00] VITALS: BP 130/97; PULSE 94
[2024-02-07] MEDS: Ibuprofen 600 MG TABLET PO ×2 (12:37→21:08)
[2024-02-07] MEDS: Ondansetron ODT 4 MG TAB.RAPDIS TRANSLINGU (16:40)
[2024-02-07] MEDS: Acetaminophen 325 MG TABLET 650 MG PO (16:40)
[2024-02-07] MEDS: hydrOXYzine HCL 25 MG TABLET PO (16:41)
[2024-02-07] MEDS: Magnesium Hydrox/Alum Hydrox 30 ML ORAL.SUSP PO (16:41)
[2024-02-07] MEDS: Loperamide HCl 2 MG CAPSULE 4 MG PO (16:41)
[2024-02-07 18:00] VITALS: BP 148/62; PULSE 73; RESP 20; TEMP 36.8; O2SAT 98
--- NOTE | 2024-02-08 00:55 | PC.NURSE ---
Mark was observed sleeping soundly when this signwriter approached and woke him. The patient immediately began to moan and thrash around the bed. he repeatedly stated that he felt terrible, including body aches, headache and severe nausea. Mark stated that needed medication to manage withdrawal symptoms. When this signwriter returned with medications the patient was observed calmly sitting at his bedside eating snacks which included milk, crackers, chips, and 2 yogurts. patient was given 1 mg of Ativan and Tylenol with his HS medications.
[2024-02-08 07:50] VITALS: BP 112/59; PULSE 76; RESP 18; TEMP 33.8; O2SAT 100
[2024-02-08] MEDS: cloNIDine HCL 0.1 MG TABLET PO ×3 (08:39→21:28)
[2024-02-08] MEDS: Thiamine HCL 100 MG TABLET PO (08:40)
[2024-02-08] MEDS: Multivitamin TABLET 1 TAB PO (08:40)
[2024-02-08] MEDS: Folic Acid 1 MG TABLET PO (08:40)
[2024-02-08] MEDS: methADONE HCl 20 MG/2 ML ORAL.CONC 60 MG PO (08:40)
[2024-02-08] MEDS: Gabapentin 300 MG CAPSULE PO ×3 (08:40→21:29)
[2024-02-08] MEDS: Nicotine 21 MG PATCH.TD24 TRANSDERMA (08:42)
[2024-02-08 09:00] VITALS: BP 113/74; RESP 17; TEMP 2.7; TEMP 36.9; O2SAT 99
--- NOTE | 2024-02-08 09:06 | HO.PSYCHPN ---
Subjective Subjective Date of Service: 02/08/24 Reason For Visit: crisis Subjective Notes: Conditional Voluntary Interim History: Reviewed with Dr. Gao. Presents similar to yesterday. Pt reports feeling a little better ; pt stated, I'm sleeping and eating better. I still want an increase in my Methadone. I also wanna go to either the [facility] or [facility] on [facility] . 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 denies SI/HI/VH. continues to report AH on and off throughout the day of his who . Addiction medicine aware, pt would like to speak with them. Medication Compliance: Yes Side effects from medications: No Attending Groups: Intermittent Review of Systems Constitutional: Reports as per HPI Eyes: Reports as per HPI Reports as per HPI Cardiovascular: Reports as per HPI Respiratory: Reports as per HPI Gastrointestinal: Reports as per HPI Genitourinary: Reports as per HPI Musculoskeletal: Reports as per HPI Skin/Breast: Reports as per HPI Reports as per HPI Psychiatric: Reports as per HPI Endocrine: Reports as per HPI Hematologic/Lymphatic: Reports as per HPI Allergic/Immunologic: Reports as per HPI Mental Status Exam Mental Status Exam Narrative: Pt is alert and oriented; behavior is cooperative and calm; dressed in casual attire, showered; mood is described as better than yesterday ; eye contact appropriate; Speech is normal rate, volume and prosody and not pressured; thought process is organized and goal directed; Thought content is on tx; denies SI/HI/VH. Pt reports auditory hallucinations at times of his who . Diagnostics Vital Signs (24Hr): Vital Signs - 24 hr 02/07/24 12:00 02/07/24 18:00 02/08/24 07:50 Temperature 98.2 F 92.8 F L Pulse Rate 94 73 76 Respiratory Rate 20 18 Blood Pressure 130/97 H 148/62 H 112/59 L Pulse Oximetry 98 100 Oxygen Delivery Method Room Air Room Air BMI result Body Mass Index 25.7 Labs 02/03/24 01:37 02/03/24 01:37 Labs: Laboratory Results - last 48 hr 02/06/24 11:32 COVID-19 ([facility]) Negative COVID-19 Clin Com See Note Medications Medications Current Medications Acetaminophen (Acetaminophen 325 Mg Tablet) 650 mg PO Q6H PRN PRN Reason: Headache/Pain Mild Scale (1-3) Last Admin: 02/07/24 16:40 Dose: 650 mg Al Hydroxide/Mg Hydroxide (Magnesium Hydrox/Alum Hydrox 30 Ml Oral.Susp) 30 ml PO Q6H PRN PRN Reason: Heartburn/Nausea Last Admin: 02/07/24 16:41 Dose: 30 ml Clonidine HCl (Clonidine Hcl 0.1 Mg Tablet) 0.1 mg PO TID [facility]; Protocol Last Admin: 02/08/24 08:39 Dose: 0.1 mg Folic Acid (Folic Acid 1 Mg Tablet) 1 mg PO DAILY [facility] Last Admin: 02/08/24 08:40 Dose: 1 mg Gabapentin (Gabapentin 300 Mg Capsule) 300 mg PO TID [facility] Last Admin: 02/08/24 08:40 Dose: 300 mg Hydroxyzine HCl (Hydroxyzine Hcl 25 Mg Tablet) 25 mg PO Q6H PRN PRN Reason: Anxiety Last Admin: 02/07/24 16:41 Dose: 25 mg Ibuprofen (Ibuprofen 600 Mg Tablet) 600 mg PO Q6H PRN PRN Reason: Pain, Moderate(Pain Scale 4-6) Last Admin: 02/07/24 21:08 Dose: 600 mg Loperamide HCl (Loperamide Hcl 2 Mg Capsule) 4 mg PO Q4H PRN PRN Reason: Loose Stool Last Admin: 02/07/24 16:41 Dose: 4 mg Lorazepam (Lorazepam 1 Mg Tablet) 1 mg PO Q4H PRN PRN Reason: CIWA score 6-12 Last Admin: 02/07/24 21:08 Dose: 1 mg Lorazepam (Lorazepam 1 Mg Tablet) 2 mg PO Q4H PRN PRN Reason: CIWA 13 and above Last Admin: 02/05/24 17:34 Dose: 2 mg Magnesium Hydroxide (Milk Of Magnesia 30 Ml Oral.Susp) 30 ml PO DAILY PRN PRN Reason: Constipation Methadone HCl (Methadone Hcl 20 Mg/2 Ml Oral.Conc) 60 mg PO DAILY [facility] Last Admin: 02/08/24 08:40 Dose: 60 mg Multivitamins/Vitamin C (Multivitamin Tablet) 1 tab PO DAILY [facility] Last Admin: 02/08/24 08:40 Dose: 1 tab Nicotine (Nicotine 21 Mg Patch.Td24) 21 mg TRANSDERMA DAILY [facility] Last Admin: 02/08/24 08:42 Dose: 21 mg Nicotine Polacrilex (Nicotine Polacrilex 2 Mg Gum) 4 mg BUCCAL Q2H PRN PRN Reason: Nicotine Cravings Last Admin: 02/07/24 14:42 Dose: 4 mg Ondansetron HCl (Ondansetron Odt 4 Mg Tab.Rapdis) 4 mg TRANSLINGU Q6H PRN PRN Reason: Nausea and Vomiting Last Admin: 02/07/24 16:40 Dose: 4 mg Thiamine HCl (Thiamine Hcl 100 Mg Tablet) 100 mg PO DAILY [facility] Last Admin: 02/08/24 08:40 Dose: 100 mg Allergies Allergies Allergy/AdvReac Type Severity Reaction Status Date / Time fish derived [FISH] Allergy Unknown UNKNOWN - Verified 02/03/24 13:02 NOT ANAPHYLAXIS PER PATIENT trazodone AdvReac Severe priapr Verified 02/03/24 13:02 Assessment & Plan Assessment & Plan (1) MDD (major depressive disorder), recurrent episode, severe: Status: Acute Code(s): F33.2 - Major depressive disorder, recurrent severe without psychotic features (2) PTSD (post-traumatic stress disorder): Status: Acute Code(s): F43.10 - Post-traumatic stress disorder, unspecified (3) Opioid use disorder: Status: Acute Code(s): F11.90 - Opioid use, unspecified, uncomplicated (4) Cocaine use disorder: Status: Acute Code(s): F14.10 - Cocaine abuse, uncomplicated (5) Alcohol use disorder, moderate, dependence: Status: Resolved Code(s): F10.20 - Alcohol dependence, uncomplicated Plan Patient is a 43 year old male with hx of MDD, PTSD, ETOH abuse, cocaine use d/o, and opioid use d/o who was seen in ER d/t suicidal ideation secondary to life stressors and substance abuse. Plan: CV 15 minute safety checks CIWA [facility] consult; started on methadone. referral to outpatient prescriber and therapist referral to substance abuse program discharge planning 02/05: active on unit, social with peers. irritable. guarded. pt reports feeling crappy today; pt stated, I'm still withdrawing, I need higher doses of methadone . pt being followed by addiction medicine. pt denies SI/HI/VH/AH. Pt requesting to be restarted on Gabapentin for neuropathy. Start: Gabapentin 300mg PO TID 02/06:active on unit, social with peers. brighter affect. showered. Pt stated, I'm feeling better than yesterday. I sometimes hear my 's voice . Pt continues to report interest in substance abuse program. denies SI/HI/VH. continue current tx plan. 02/07: Presents similar to yesterday. Pt reports feeling a little better ; pt stated, I'm sleeping and eating better. I still want an increase in my Methadone. I also wanna go to either the [facility] or [facility] on [facility] . 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 denies SI/HI/VH. continues to report AH on and off throughout the day of his who . Addiction medicine aware, pt would like to speak with them. Patient educated on: diagnosis, medication risk/benefits and substance abuse Informed Consent: understands Reason for continued inpatient stay Substantial Risk for: med/psych decompensation Time Spent With Patient Time: Total time managing care of this patient today _20___ minutes.
[2024-02-08] MEDS: Nicotine Polacrilex 2 MG GUM 4 MG BUCCAL ×4 (09:18→16:01)
[2024-02-08] MEDS: Ibuprofen 600 MG TABLET PO ×2 (11:26→18:17)
[2024-02-08 12:05] VITALS: BP 121/67; PULSE 101; RESP 18; TEMP 2.6; TEMP 36.7; O2SAT 97
[2024-02-08] MEDS: Ondansetron ODT 4 MG TAB.RAPDIS TRANSLINGU (12:47)
[2024-02-08] MEDS: Loperamide HCl 2 MG CAPSULE 4 MG PO (12:47)
[2024-02-08] MEDS: LORazepam 1 MG TABLET PO ×2 (12:47→16:20)
--- NOTE | 2024-02-08 14:56 | MHC.RECOVRN ---
Met with pt to follow up regarding methadone titration. Pt in common area, awake, alert, easily engages in conversation. Pt appears much more comfortable than last week. Pt reports continuing to feel withdrawal symptoms during the evening, including restlessness and diaphoresis. Pt is hoping to return to previous dose of methadone. Pt denies other questions or concerns for t/w. Pt has received 60 mg daily x 3 days. Discussed with provider, plan to increase pt to 70 mg daily starting 02/08.
[2024-02-08] MEDS: Acetaminophen 325 MG TABLET 650 MG PO (16:20)
[2024-02-08] MEDS: hydrOXYzine HCL 25 MG TABLET PO (18:17)
[2024-02-08 21:25] VITALS: BP 131/70; PULSE 82; RESP 18; TEMP 36.8; O2SAT 98
[2024-02-09 08:00] VITALS: PULSE 78
[2024-02-09 08:20] VITALS: BP 129/73; PULSE 78; O2SAT 96
[2024-02-09] MEDS: Folic Acid 1 MG TABLET PO (08:33)
[2024-02-09] MEDS: Gabapentin 300 MG CAPSULE PO ×3 (08:33→20:58)
[2024-02-09] MEDS: cloNIDine HCL 0.1 MG TABLET PO ×3 (08:33→20:57)
[2024-02-09] MEDS: Nicotine Polacrilex 2 MG GUM 4 MG BUCCAL ×3 (08:34→21:04)
[2024-02-09] MEDS: Thiamine HCL 100 MG TABLET PO (08:34)
[2024-02-09] MEDS: Multivitamin TABLET 1 TAB PO (08:34)
[2024-02-09] MEDS: methADONE HCl 20 MG/2 ML ORAL.CONC 70 MG PO (08:35)
[2024-02-09] MEDS: Nicotine 21 MG PATCH.TD24 TRANSDERMA (08:36)
[2024-02-09] MEDS: Acetaminophen 325 MG TABLET 650 MG PO (09:08)
[2024-02-09] MEDS: Ondansetron ODT 4 MG TAB.RAPDIS TRANSLINGU (09:08)
--- NOTE | 2024-02-09 09:14 | P.PNPSI_ITS ---
Subjective Subjective Date of Service: 02/09/24 Reason For Visit: crisis Subjective Notes: Conditional Voluntary Interim History: Reviewed with Dr. Gao. Social with peers and staff, observed joking and laughing. Pt reports feeling okay; pt stated, I'm doing alright. I'm not having any voices today. I still wanna go up on my methadone to 80mg then I'll be fine . denies SI/HI/VH/AH. Methadone increased to 70mg PO daily with recommendation from recovery team. DC CIWA; pt denies symptoms. Plan to discharge pt this week to either program or to half-way while he remains on wait list. Medication Compliance: Yes Side effects from medications: No Attending Groups: Intermittent Review of Systems Constitutional: Reports as per HPI Eyes: Reports as per HPI Reports as per HPI Cardiovascular: Reports as per HPI Respiratory: Reports as per HPI Gastrointestinal: Reports as per HPI Genitourinary: Reports as per HPI Musculoskeletal: Reports as per HPI Skin/Breast: Reports as per HPI Reports as per HPI Psychiatric: Reports as per HPI Endocrine: Reports as per HPI Hematologic/Lymphatic: Reports as per HPI Allergic/Immunologic: Reports as per HPI Mental Status Exam Mental Status Exam Narrative: Pt is alert and oriented; behavior is cooperative and calm; dressed in casual attire, showered; mood is described as okay ; eye contact appropriate; Speech is normal rate, volume and prosody and not pressured; thought process is organized and goal directed; Thought content is on tx; denies SI/HI/VH/AH. Diagnostics Vital Signs (24Hr): Vital Signs - 24 hr 02/08/24 12:05 02/08/24 21:25 Temperature 36.7 F L 98.3 F Pulse Rate 101 H 82 Respiratory Rate 18 18 Blood Pressure 121/67 131/70 Pulse Oximetry 97 98 Oxygen Delivery Method Room Air Room Air BMI result Body Mass Index 25.7 Labs 02/03/24 01:37 02/03/24 01:37 Medications Medications Current Medications Acetaminophen (Acetaminophen 325 Mg Tablet) 650 mg PO Q6H PRN PRN Reason: Headache/Pain Mild Scale (1-3) Last Admin: 02/09/24 09:08 Dose: 650 mg Al Hydroxide/Mg Hydroxide (Magnesium Hydrox/Alum Hydrox 30 Ml Oral.Susp) 30 ml PO Q6H PRN PRN Reason: Heartburn/Nausea Last Admin: 02/07/24 16:41 Dose: 30 ml Clonidine HCl (Clonidine Hcl 0.1 Mg Tablet) 0.1 mg PO TID [facility]; Protocol Last Admin: 02/09/24 08:33 Dose: 0.1 mg Folic Acid (Folic Acid 1 Mg Tablet) 1 mg PO DAILY [facility] Last Admin: 02/09/24 08:33 Dose: 1 mg Gabapentin (Gabapentin 300 Mg Capsule) 300 mg PO TID [facility] Last Admin: 02/09/24 08:33 Dose: 300 mg Hydroxyzine HCl (Hydroxyzine Hcl 25 Mg Tablet) 25 mg PO Q6H PRN PRN Reason: Anxiety Last Admin: 02/08/24 18:17 Dose: 25 mg Ibuprofen (Ibuprofen 600 Mg Tablet) 600 mg PO Q6H PRN PRN Reason: Pain, Moderate(Pain Scale 4-6) Last Admin: 02/08/24 18:17 Dose: 600 mg Loperamide HCl (Loperamide Hcl 2 Mg Capsule) 4 mg PO Q4H PRN PRN Reason: Loose Stool Last Admin: 02/08/24 12:47 Dose: 4 mg Lorazepam (Lorazepam 1 Mg Tablet) 1 mg PO Q4H PRN PRN Reason: CIWA score 6-12 Last Admin: 02/08/24 16:20 Dose: 1 mg Lorazepam (Lorazepam 1 Mg Tablet) 2 mg PO Q4H PRN PRN Reason: CIWA 13 and above Last Admin: 02/05/24 17:34 Dose: 2 mg Magnesium Hydroxide (Milk Of Magnesia 30 Ml Oral.Susp) 30 ml PO DAILY PRN PRN Reason: Constipation Methadone HCl (Methadone Hcl 20 Mg/2 Ml Oral.Conc) 70 mg PO DAILY [facility] Last Admin: 02/09/24 08:35 Dose: 70 mg Multivitamins/Vitamin C (Multivitamin Tablet) 1 tab PO DAILY [facility] Last Admin: 02/09/24 08:34 Dose: 1 tab Nicotine (Nicotine 21 Mg Patch.Td24) 21 mg TRANSDERMA DAILY [facility] Last Admin: 02/09/24 08:36 Dose: 21 mg Nicotine Polacrilex (Nicotine Polacrilex 2 Mg Gum) 4 mg BUCCAL Q2H PRN PRN Reason: Nicotine Cravings Last Admin: 02/09/24 08:34 Dose: 4 mg Ondansetron HCl (Ondansetron Odt 4 Mg Tab.Rapdis) 4 mg TRANSLINGU Q6H PRN PRN Reason: Nausea and Vomiting Last Admin: 02/09/24 09:08 Dose: 4 mg Thiamine HCl (Thiamine Hcl 100 Mg Tablet) 100 mg PO DAILY [facility] Last Admin: 02/09/24 08:34 Dose: 100 mg Allergies Allergies Allergy/AdvReac Type Severity Reaction Status Date / Time fish derived [FISH] Allergy Unknown UNKNOWN - Verified 02/03/24 13:02 NOT ANAPHYLAXIS PER PATIENT trazodone AdvReac Severe priapr Verified 02/03/24 13:02 Assessment & Plan Assessment & Plan (1) MDD (major depressive disorder), recurrent episode, severe: Status: Acute Code(s): F33.2 - Major depressive disorder, recurrent severe without psychotic features (2) PTSD (post-traumatic stress disorder): Status: Acute Code(s): F43.10 - Post-traumatic stress disorder, unspecified (3) Opioid use disorder: Status: Acute Code(s): F11.90 - Opioid use, unspecified, uncomplicated (4) Cocaine use disorder: Status: Acute Code(s): F14.10 - Cocaine abuse, uncomplicated (5) Alcohol use disorder, moderate, dependence: Status: Resolved Code(s): F10.20 - Alcohol dependence, uncomplicated Plan Patient is a 43 year old male with hx of MDD, PTSD, ETOH abuse, cocaine use d/o, and opioid use d/o who was seen in ER d/t suicidal ideation secondary to life stressors and substance abuse. Plan: CV 15 minute safety checks CIWA [facility] consult; started on methadone. referral to outpatient prescriber and therapist referral to substance abuse program discharge planning 02/05: active on unit, social with peers. irritable. guarded. pt reports feeling crappy today; pt stated, I'm still withdrawing, I need higher doses of methadone . pt being followed by addiction medicine. pt denies SI/HI/VH/AH. Pt requesting to be restarted on Gabapentin for neuropathy. Start: Gabapentin 300mg PO TID 02/06:active on unit, social with peers. brighter affect. showered. Pt stated, I'm feeling better than yesterday. I sometimes hear my 's voice . Pt continues to report interest in substance abuse program. denies SI/HI/VH. continue current tx plan. 02/07: Presents similar to yesterday. Pt reports feeling a little better ; pt stated, I'm sleeping and eating better. I still want an increase in my Methadone. I also wanna go to either the [facility] or [facility] on [facility] . oncology social worker, Love, aware. denies SI/HI/VH. continues to report AH on and off throughout the day of his who . Addiction medicine aware, pt would like to speak with them. 02/08: Social with peers and staff, observed joking and laughing. Pt reports feeling okay; pt stated, I'm doing alright. I'm not having any voices today. I still wanna go up on my methadone to 80mg then I'll be fine . denies SI/HI/VH/AH. Methadone increased to 70mg PO daily with recommendation from recovery team. MICHELLE MCDONALD; pt denies symptoms. Plan to discharge pt this week to either program or to half-way while he remains on wait list. Patient educated on: diagnosis, medication risk/benefits and substance abuse Informed Consent: understands Reason for continued inpatient stay Substantial Risk for: med/psych decompensation Time Spent With Patient Time: Total time managing care of this patient today _20___ minutes.
[2024-02-09 13:00] VITALS: BP 129/62; PULSE 83; TEMP 36.8; O2SAT 98
[2024-02-09 16:00] VITALS: PULSE 78
[2024-02-09 21:00] VITALS: BP 112/59; PULSE 74; RESP 14; TEMP 36.6; O2SAT 98
[2024-02-09] MEDS: Ibuprofen 600 MG TABLET PO (21:04)
[2024-02-09] MEDS: hydrOXYzine HCL 25 MG TABLET PO (21:04)
--- NOTE | 2024-02-09 21:40 | PC.NURSE ---
Mark given Motrin PO prn for generalized body aches. Patient given Atarax PO prn for anxiety.
[2024-02-10] VITALS: PULSE 75
[2024-02-10 08:00] VITALS: PULSE 58
[2024-02-10 08:25] VITALS: BP 120/62; PULSE 58; RESP 16; TEMP 36.8; O2SAT 100
[2024-02-10] MEDS: methADONE HCl 20 MG/2 ML ORAL.CONC 70 MG PO (08:28)
[2024-02-10] MEDS: Multivitamin TABLET 1 TAB PO (08:30)
[2024-02-10] MEDS: Nicotine Polacrilex 2 MG GUM 4 MG BUCCAL ×5 (08:30→20:42)
[2024-02-10] MEDS: cloNIDine HCL 0.1 MG TABLET PO ×3 (08:30→20:42)
[2024-02-10] MEDS: Thiamine HCL 100 MG TABLET PO (08:30)
[2024-02-10] MEDS: Folic Acid 1 MG TABLET PO (08:30)
[2024-02-10] MEDS: Gabapentin 300 MG CAPSULE PO ×3 (08:30→20:42)
[2024-02-10] MEDS: Nicotine 21 MG PATCH.TD24 TRANSDERMA (08:30)
[2024-02-10] MEDS: Acetaminophen 325 MG TABLET 650 MG PO (08:41)
--- NOTE | 2024-02-10 12:22 | HO.PSYCHPN ---
Subjective Subjective Date of Service: 02/10/24 Reason For Visit: crisis Subjective Notes: Conditional Voluntary Interim History: Reviewed with Dr. Gao. Social with peers and staff. Pt reports feeling good today; pt stated, I'm not withdrawing anymore. I'm doing fine. The methadone is helping me . pt denies SI/HI/VH/AH. pt is requesting to be restarted on Adderall XR 10mg PO BID. Pt reports he has a visit from his [facility] worker who is working on getting me a place but I'm fine with going to the long-term . Medication Compliance: Yes Side effects from medications: No Attending Groups: Intermittent Review of Systems Constitutional: Reports as per HPI Eyes: Reports as per HPI Reports as per HPI Cardiovascular: Reports as per HPI Respiratory: Reports as per HPI Gastrointestinal: Reports as per HPI Genitourinary: Reports as per HPI Musculoskeletal: Reports as per HPI Skin/Breast: Reports as per HPI Reports as per HPI Psychiatric: Reports as per HPI Endocrine: Reports as per HPI Hematologic/Lymphatic: Reports as per HPI Allergic/Immunologic: Reports as per HPI Mental Status Exam Mental Status Exam Narrative: Pt is alert and oriented; behavior is cooperative and calm; dressed in casual attire, showered; mood is described as good ; eye contact appropriate; Speech is normal rate, volume and prosody and not pressured; thought process is organized and goal directed; Thought content is on tx; denies SI/HI/VH/AH. Diagnostics Vital Signs (24Hr): Vital Signs - 24 hr 02/09/24 13:00 02/09/24 21:00 02/10/24 08:25 Temperature 98.2 F 97.9 F 98.2 F Pulse Rate 83 74 58 Respiratory Rate 14 16 Blood Pressure 129/62 112/59 L 120/62 Pulse Oximetry 98 98 100 Oxygen Delivery Method Room Air Room Air Room Air BMI result Body Mass Index 25.7 Labs 02/03/24 01:37 02/03/24 01:37 Medications Medications Current Medications Acetaminophen (Acetaminophen 325 Mg Tablet) 650 mg PO Q6H PRN PRN Reason: Headache/Pain Mild Scale (1-3) Last Admin: 02/10/24 08:41 Dose: 650 mg Al Hydroxide/Mg Hydroxide (Magnesium Hydrox/Alum Hydrox 30 Ml Oral.Susp) 30 ml PO Q6H PRN PRN Reason: Heartburn/Nausea Last Admin: 02/07/24 16:41 Dose: 30 ml Amphetamine/Dextroamphetamine (Dextroamphetamine/Amphetamine Xr 10 Mg Cap.Er.24h) 10 mg PO DAILY@0800,1400 [facility] Clonidine HCl (Clonidine Hcl 0.1 Mg Tablet) 0.1 mg PO TID [facility]; Protocol Last Admin: 02/10/24 08:30 Dose: 0.1 mg Folic Acid (Folic Acid 1 Mg Tablet) 1 mg PO DAILY [facility] Last Admin: 02/10/24 08:30 Dose: 1 mg Gabapentin (Gabapentin 300 Mg Capsule) 300 mg PO TID [facility] Last Admin: 02/10/24 08:30 Dose: 300 mg Hydroxyzine HCl (Hydroxyzine Hcl 25 Mg Tablet) 25 mg PO Q6H PRN PRN Reason: Anxiety Last Admin: 02/09/24 21:04 Dose: 25 mg Ibuprofen (Ibuprofen 600 Mg Tablet) 600 mg PO Q6H PRN PRN Reason: Pain, Moderate(Pain Scale 4-6) Last Admin: 02/09/24 21:04 Dose: 600 mg Loperamide HCl (Loperamide Hcl 2 Mg Capsule) 4 mg PO Q4H PRN PRN Reason: Loose Stool Last Admin: 02/08/24 12:47 Dose: 4 mg Magnesium Hydroxide (Milk Of Magnesia 30 Ml Oral.Susp) 30 ml PO DAILY PRN PRN Reason: Constipation Methadone HCl (Methadone Hcl 20 Mg/2 Ml Oral.Conc) 70 mg PO DAILY [facility] Last Admin: 02/10/24 08:28 Dose: 70 mg Multivitamins/Vitamin C (Multivitamin Tablet) 1 tab PO DAILY [facility] Last Admin: 02/10/24 08:30 Dose: 1 tab Nicotine (Nicotine 21 Mg Patch.Td24) 21 mg TRANSDERMA DAILY [facility] Last Admin: 02/10/24 08:30 Dose: 21 mg Nicotine Polacrilex (Nicotine Polacrilex 2 Mg Gum) 4 mg BUCCAL Q2H PRN PRN Reason: Nicotine Cravings Last Admin: 02/10/24 08:30 Dose: 4 mg Ondansetron HCl (Ondansetron Odt 4 Mg Tab.Rapdis) 4 mg TRANSLINGU Q6H PRN PRN Reason: Nausea and Vomiting Last Admin: 02/09/24 09:08 Dose: 4 mg Thiamine HCl (Thiamine Hcl 100 Mg Tablet) 100 mg PO DAILY [facility] Last Admin: 02/10/24 08:30 Dose: 100 mg Allergies Allergies Allergy/AdvReac Type Severity Reaction Status Date / Time fish derived [FISH] Allergy Unknown UNKNOWN - Verified 02/03/24 13:02 NOT ANAPHYLAXIS PER PATIENT trazodone AdvReac Severe priapr Verified 02/03/24 13:02 Assessment & Plan Assessment & Plan (1) MDD (major depressive disorder), recurrent episode, severe: Status: Acute Code(s): F33.2 - Major depressive disorder, recurrent severe without psychotic features (2) PTSD (post-traumatic stress disorder): Status: Acute Code(s): F43.10 - Post-traumatic stress disorder, unspecified (3) Opioid use disorder: Status: Acute Code(s): F11.90 - Opioid use, unspecified, uncomplicated (4) Cocaine use disorder: Status: Acute Code(s): F14.10 - Cocaine abuse, uncomplicated (5) Alcohol use disorder, moderate, dependence: Status: Resolved Code(s): F10.20 - Alcohol dependence, uncomplicated Plan Patient is a 43 year old male with hx of MDD, PTSD, ETOH abuse, cocaine use d/o, and opioid use d/o who was seen in ER d/t suicidal ideation secondary to life stressors and substance abuse. Plan: CV 15 minute safety checks CIWA [facility] consult; started on methadone. referral to outpatient prescriber and therapist referral to substance abuse program discharge planning 02/05: active on unit, social with peers. irritable. guarded. pt reports feeling crappy today; pt stated, I'm still withdrawing, I need higher doses of methadone . pt being followed by addiction medicine. pt denies SI/HI/VH/AH. Pt requesting to be restarted on Gabapentin for neuropathy. Start: Gabapentin 300mg PO TID 02/06:active on unit, social with peers. brighter affect. showered. Pt stated, I'm feeling better than yesterday. I sometimes hear my 's voice . Pt continues to report interest in substance abuse program. denies SI/HI/VH. continue current tx plan. 02/07: Presents similar to yesterday. Pt reports feeling a little better ; pt stated, I'm sleeping and eating better. I still want an increase in my Methadone. I also [facility] on [address] . marriage and family social worker, Love aware. denies SI/HI/VH. continues to report AH on and off throughout the day of his who . Addiction medicine aware, pt would like to speak with them. 02/08: Social with peers and staff, observed joking and laughing. Pt reports feeling okay; pt stated, I'm doing alright. I'm not having any voices today. I still wanna go up on my methadone to 80mg then I'll be fine . denies SI/HI/VH/AH. Methadone increased to 70mg PO daily with recommendation from recovery team. MICHELLE MCDONALD; pt denies symptoms. Plan to discharge pt this week to either program or to long-term while he remains on wait list. 02/09: Social with peers and staff. Pt reports feeling good today; pt stated, I'm not withdrawing anymore. I'm doing fine. The methadone is helping me . pt denies SI/HI/VH/AH. pt is requesting to be restarted on Adderall XR 10mg PO BID. Pt reports he has a visit from his [facility] worker who is working on getting me a place but I'm fine with going to the long-term . MICHELLE FALK. Patient educated on: diagnosis, medication risk/benefits, substance abuse and therapeutic strategies Informed Consent: understands Reason for continued inpatient stay Substantial Risk for: med/psych decompensation Time Spent With Patient Time: Total time managing care of this patient today _20___ minutes.
[2024-02-10 13:42] VITALS: BP 123/56; PULSE 66; RESP 17; O2SAT 100
[2024-02-10] MEDS: Dextroamphetamine/Amphetamine XR 10 MG CAP.ER.24H PO (13:55)
[2024-02-10] MEDS: Ibuprofen 600 MG TABLET PO (16:27)
[2024-02-10 20:30] VITALS: BP 111/60; PULSE 60; RESP 16; TEMP 36.6; O2SAT 100
[2024-02-10] MEDS: hydrOXYzine HCL 25 MG TABLET PO (20:42)
[2024-02-11 08:00] VITALS: BP 137/69; PULSE 65; RESP 16; O2SAT 100
[2024-02-11] MEDS: methADONE HCl 20 MG/2 ML ORAL.CONC 70 MG PO (08:22)
[2024-02-11] MEDS: Multivitamin TABLET 1 TAB PO (08:23)
[2024-02-11] MEDS: Folic Acid 1 MG TABLET PO (08:23)
[2024-02-11] MEDS: Gabapentin 300 MG CAPSULE PO (08:23)
[2024-02-11] MEDS: cloNIDine HCL 0.1 MG TABLET PO (08:23)
[2024-02-11] MEDS: Nicotine 21 MG PATCH.TD24 TRANSDERMA (08:25)
[2024-02-11] MEDS: Acetaminophen 325 MG TABLET 650 MG PO (08:30)
[2024-02-11] MEDS: Dextroamphetamine/Amphetamine XR 10 MG CAP.ER.24H PO (08:31)
[2024-02-11] MEDS: Nicotine Polacrilex 2 MG GUM 4 MG BUCCAL (08:31)
[2024-02-11] MEDS: Thiamine HCL 100 MG TABLET PO (09:16)
--- NOTE | 2024-02-11 09:56 | P.DS_ITS ---
DS: Providers Provider Date of Service: 02/11/24 Date of admission: 02/04/24 11:42 Date of discharge: 02/11/24 Primary care physician: Unknown Physician Admitting clinician: Naheed Walker Attending physician on admission: Lui Gao Consults: 02/04/24 14:51 Addiction Medicine Routine Consulting Provider: Addiction Covering Reason for consultation: interested in methadone Has provider been notified: Yes Attending physician on discharge: Lui Gao Discharging clinician: Naheed Walker DS: Diagnosis Discharge Diagnosis (1) MDD (major depressive disorder), recurrent episode, severe: Status: Acute (2) PTSD (post-traumatic stress disorder): Status: Acute (3) Opioid use disorder: Status: Acute (4) Cocaine use disorder: Status: Acute (5) Alcohol use disorder, moderate, dependence: Status: Resolved DS: Medications Discharge Medications Home Medications: Previous Rx's Medication Instructions Recorded methadone 10 mg/mL oral 55 mg (5.5 mL) PO DAILY #0 mL 10/01/23 concentrate (Methadose) Mental Status Exam Mental Status Exam Narrative: Pt is alert and oriented; behavior is cooperative and calm; dressed in casual attire, showered; mood is described as good ; eye contact appropriate; Speech is normal rate, volume and prosody and not pressured; thought process is organized; Thought content is on discharge; denies SI/HI/VH/AH. Data Data Completed and Pending Completed studies during hospitalization [Text1]: 02/06/24 11:32 COVID-19 (ELOY) Negative COVID-19 Clin Com See Note DS: Summary Hospital Course Hospital Course: Patient is a 43 year old male with hx of MDD, PTSD, ETOH abuse, cocaine use d/o, and opioid use d/o who was seen in ER d/t suicidal ideation secondary to life stressors and substance abuse. Pt was seen using Fentanyl in the street and local PD had him sent to [facility] to an evaluation. Per crisis report, pt reported suicidal ideation with plan to get a gun and blow my head off . Pt stated, he was at a [facility] for three months and was kicked out because of a vape. He reported taking methadone 130mg and has not had a dose in a week. During admission assessment, pt was laying in bed with sheets covering his eyes. Pt presents, irritable and guarded during interview; pt kept interview brief. Pt stated, I'm getting tired of being tired. When you lose everything you love, you become a miserable fucking person like I am . Pt reports he does not have an outpatient therapist or psychiatrist but is interested in referrals. Pt reports he would like to go to a substance abuse program to help with his sobriety. Pt can not recall past medication trials. Pt reports suicidal ideation but who no plan. denies HI/VH/AH. He reports using few bundles of heroin, whatever amount of cocaine I could get and drinking before being admitted. Pt is currently experiencing withdrawals symptoms such as body aches, nausea and fatigue. Addiction consult placed. Pt was started on methadone 30mg PO daily yesterday. He was given methadone 40mg daily today, with an additional one time 10mg. Tomorrow he will be increased to methadone 60mg PO daily; addiction medicine to follow. During hospital course, CV 15 minute safety checks CIWA [facility] medicine consult; started on methadone. referral to outpatient prescriber and therapist referral to substance abuse program discharge planning active on unit, social with peers. irritable. guarded. pt reports feeling crappy today; pt stated, I'm still withdrawing, I need higher doses of methadone . pt being followed by addiction medicine. pt denies SI/HI/VH/AH. Pt requesting to be restarted on Gabapentin for neuropathy. Start: Gabapentin 300mg PO TID active on unit, social with peers. brighter affect. showered. Pt stated, I'm feeling better than yesterday. I sometimes hear my 's voice . Pt continues to report interest in substance abuse program. denies SI/HI/VH. continue current tx plan. Presents similar to yesterday. Pt reports feeling a little better ; pt stated, I'm sleeping and eating better. I still want an increase in my Methadone. I also wanna go to either the [facility] or [facility] on [address] . geriatric social work professor, Love, aware. denies SI/HI/VH. continues to report AH on and off throughout the day of his who . Addiction medicine aware, pt would like to speak with them. Social with peers and staff, observed joking and laughing. Pt reports feeling okay; pt stated, I'm doing alright. I'm not having any voices today. I still wanna go up on my methadone to 80mg then I'll be fine . denies SI/HI/VH/AH. Methadone increased to 70mg PO daily with recommendation from recovery team. MICHELLE CIWA; pt denies symptoms. Plan to discharge pt this week to either program or to custodial while he remains on wait list. Social with peers and staff. Pt reports feeling good today; pt stated, I'm not withdrawing anymore. I'm doing fine. The methadone is helping me . pt denies SI/HI/VH/AH. pt is requesting to be restarted on Adderall XR 10mg PO BID. Pt reports he has a visit from his [facility] worker who is working on getting me a place but I'm fine with going to the custodial . DC DILEEP. Pt declined doing to [facility]; he reports plan on following up with outpatient providers and staying with a friend for a few days. Pt denies SI/HI/VH/AH. T/W and pt discussed likelihood of relapse with hx of substance abuse and declining program, pt expressed understanding; he was discharged with Narcan. Time spent discussing smoking cessation with patient: 3 to 10 minutes Status at Discharge Cognitive/behavioral status at discharge: Patient was interviewed prior to discharge and found to be fully oriented and without any SI or HI. Patient has insight and demonstrates good judgment in terms of wanting to pursue treatment. Patient has a safety plan that includes presenting to the closest ER or calling 911 if feeling unsafe. Functional status at discharge: independent ambulation Overall status at discharge: patient is back to baseline Time Spent with Patient Time attestation: Total time managing care of this patient today _30___ minutes. Time spent: Less than 30 minutes Discharge Plan Discharge Anticipated Discharge Date/Time: 02/11/24 11:00 Patient Disposition: Home, Self-Care Discharge Diagnosis: MDD, PTSD, opioid use d/o, cocaine use d/o Referrals: Physician,Unknown J [Primary Care Provider] - 1 Week Discharge Medications: New gabapentin 300 mg Capsule 300 mg PO TID 14 Days Qty: 42 0RF clonidine HCl 0.1 mg Tablet 0.1 mg PO TID 14 Days Qty: 42 0RF Protocol: Hold for SBP< HOLD for SBP < : 90 methadone [Methadose] 10 mg/mL Concentrate 70 mg PO DAILY Qty: 0 0RF Rx Instructions: Partial Fill upon patient request. Discontinued methadone [Methadose] 10 mg/mL Concentrate 55 mg PO DAILY Qty: 0 0RF Rx Instructions: Partial Fill upon patient request. Discharge Orders: Discharge Order (Routine); Ordered 02/11/24 Ordered By: Naheed Walker Diet: Regular diet Activity on Discharge: As tolerated Stand Alone Forms: Patient Portal Discharge page, Community Support Care Plan Goals: Maintain mood and safe behaviors Take medications as prescribed Continue to pursue sobriety Practice coping skills Continue with outpatient providers and reach out to them as needed Health Concerns: Mood stability and behaviors Sobriety Plan of Treatment: Follow up with your PCP, psychiatric provider and other outpatient providers reg arding above concerns Take medications as prescribed Assessment: Patient was interviewed prior to discharge and found to be fully oriented and without any SI or HI. Patient has insight and demonstrates good judgment in terms of wanting to pursue treatment. Patient has a safety plan that includes presenting to the closest ER or calling 911 if feeling unsafe. Discharge Date/Time: 02/11/24 10:53
--- NOTE | 2024-02-11 11:34 | PC.NURSE ---
Patient easily engaged. Reports ready for discharge, planning to walk to [facility] then connect with friend. Reports mood is stable. Reports mood is no different than his norm. Denies SI/HI plan or intent at this time. Reports voice of ex continues although states it is always there and it never goes away. Discharge paperwork reviewed, reports understanding. Medications reviewed with patient reports understanding. States he gets all services at [facility]. Information provided for walk in clinic. Last dose letter given in sealed envelope. Crisis numbers provided. All belongings given to patient, personal items returned from [facility]. NARCAN provided to patient.
== END 2024-02-11 10:53 | disposition home or self-care (01) | DRG 751 ==
LOC: HO.ED 02-04 12:05 → HO.PADLT16 02-04 12:28
PROVIDERS: Admitting Provider Registered Nurse; Emergency Provider Emergency Medicine Emergency Medical Services; Responsible Provider Registered Nurse; Visit Provider Psychiatry & Neurology Psychiatry
DX: F33.2 Major depressive disorder, recurrent severe without psychotic features (principal); R45.851 Suicidal ideations; F11.20 Opioid dependence, uncomplicated; F14.10 Cocaine abuse, uncomplicated; F17.210 Nicotine dependence, cigarettes, uncomplicated; Z71.6 Tobacco abuse counseling; Z20.822 Contact with and (suspected) exposure to COVID-19; Y90.5 Blood alcohol level of 100-119 mg/100 ml; Z79.899 Other long term (current) drug therapy
CPT/HCPCS: 36415; 80053; 80307; 81001; 85025; 87635; 93005; 99285; S9485

== ENCOUNTER → 2024-02-03 09:50 | Outpatient (BNV) | payer MEDICAID, SELFPAY | PROVIDERS: Emergency Provider Emergency Medicine Emergency Medical Services; Visit Provider Internal Medicine | DX: I45.81 Long QT syndrome (principal) | CPT/HCPCS: 93010 ==

== ENCOUNTER → 2024-02-04 11:42 | Outpatient (BNV) | payer OTHER, SELFPAY | PROVIDERS: Admitting Provider Registered Nurse; Emergency Provider Emergency Medicine Emergency Medical Services; Responsible Provider Registered Nurse; Visit Provider Registered Nurse | DX: F33.2 Major depressive disorder, recurrent severe without psychotic features (principal); F14.10 Cocaine abuse, uncomplicated; F43.11 Post-traumatic stress disorder, acute; F11.90 Opioid use, unspecified, uncomplicated; F10.20 Alcohol dependence, uncomplicated | CPT/HCPCS: 99231; 99232; 99233 ==

== ENCOUNTER 2024-02-16 23:16 | Emergency (ER) | payer OTHER, MEDICAID, SELFPAY ==
[2024-02-16 23:20] VITALS: BP 162/98; PULSE 92; O2SAT 98; BMI 25.8
--- NOTE | 2024-02-16 23:35 | PC.NURSE ---
Belongings in closet in pod
[2024-02-16 23:42] VITALS: BP 133/80; PULSE 92; RESP 16; TEMP 36.9; O2SAT 96
--- NOTE | 2024-02-17 00:41 | ED_ITS ---
HPI - Alcohol General Chief Complaint: ETOH/Substance Use Stated Complaint: etoh/back pain Time Seen by Provider: 02/16/24 23:21 History of Present Illness HPI narrative: Patient is a 43-year-old [place] question generalized pain earlier. Patient currently sleeping unable to give detailed history. No complaints Related Data Previous Rx's Medication Instructions Recorded clonidine HCl 0.1 mg tablet 0.1 mg PO TID 14 days #42 tabs 02/11/24 gabapentin 300 mg capsule 300 mg PO TID 2 weeks #42 caps 02/11/24 methadone 10 mg/mL oral 70 mg (7 mL) PO DAILY #0 mL 02/11/24 concentrate (Methadose) Allergies Allergy/AdvReac Type Severity Reaction Status Date / Time fish derived [FISH] Allergy Unknown UNKNOWN - Verified 02/03/24 13:02 NOT ANAPHYLAXIS PER PATIENT trazodone AdvReac Severe priapr Verified 02/03/24 13:02 Review of Systems Review of Systems: Unable to obtain review of systems PMFSH Past Medical History Medical History IVDU (intravenous drug user) Alcohol dependence Recurrent major depression-severe PTSD (post-traumatic stress disorder) PTSD (post-traumatic stress disorder) Hep C w/o coma, chronic Surgical History History of surgery on arm Social History Social History Household Members: Unknown / Unable to assess Household Members Other:: unable to obtain information from patient d/t sedation. Housing: Homeless Do you presently have visiting nurse or other home services: No Alcohol intake: current Alcohol intake frequency: 0-2 drinks per day Alcohol type: hard liquor Comment: pt refused bed alarm Patient Tobacco Use Status: Refuse Tobacco use screen Tobacco use type: Cigarette Cigarette Packs Per Day: 2 Cigarettes Per Day: 40.0 Years Smoked: unknown Smoked in Last 30 Days: Yes e-Cigarette/Vaping Use: Currently Using Second Hand Smoke Exposure: No Use of substances other than those prescribed or required for medical reasons: Yes Substance Use Type: Crack/Cocaine and Opiates Substance Use Frequency: Chronic Longstanding Advance Directives: No Advance Directives Information Provided: No service: Yes ([employer]) Sexual orientation: Straight/Heterosexual Physical Exam ED Vital Signs: Vital Signs - 24 hr 02/16/24 23:42 Temperature 98.4 F Pulse Rate 92 Respiratory Rate 16 Blood Pressure 133/80 Pulse Oximetry 96 Oxygen Delivery Method Room Air BMI result Body Mass Index 25.8 Appearance: Sleeping no acute distress Eyes: Pupils equal, round and reactive to light. ENT: Pharynx normal. Neck: Normal inspection. Neck supple. No lymph nodes noted. No crepitus CVS: Normal heart rate and rhythm. Pulses normal. Normal S1 and S2 Respiratory: No respiratory distress. Breath sounds normal. No Wheezing. No rales Abdomen: Soft and nontender. No rigidity. No distention. good BS x4 Skin: Skin warm and dry. Normal skin color. Normal skin turgor. Extremities: No lower extremity edema. Neurovascular intact to all extremities. No Lacerations. No Rash Neuro: Sleeping no acute distress able to move all extremities Medical Decision Making Medical Decision Making MDM Narrative: Will check some baseline labs and monitor patient overnight. Currently in no distress. Patient appears grossly intoxicated. Has a history of IV drug use. History of PTSD. Differential Diagnosis Differential Diagnoses: The differential diagnosis associated with the presentation includes Alcohol intoxication, polysubstance abuse Social Determinants Patient?s care significantly limited by Social Determinants of Health including: Low income, Alcoholism and drug addiction in family and Problems related to primary support group Discharge Plan Discharge Clinical Impression: Alcoholic intoxication Patient Disposition: Still a Patient Prescriptions: No Action gabapentin 300 mg Capsule 300 mg PO TID 14 Days Qty: 42 0RF clonidine HCl 0.1 mg Tablet 0.1 mg PO TID 14 Days Qty: 42 0RF Protocol: Hold for SBP< HOLD for SBP < : 90 methadone [Methadose] 10 mg/mL Concentrate 70 mg PO DAILY Qty: 0 0RF Rx Instructions: Partial Fill upon patient request.
[2024-02-17 02:00] VITALS: BP 130/70; PULSE 90; RESP 16; TEMP 36.9; O2SAT 97
[2024-02-17 02:16] LABS: Basophils Absolute Auto 0.1 X10*3/uL (0.0-0.2); Basophils Percent Auto 0.6 % (0-2); Eosinophils Absolute Auto 0.1 X10*3/uL (0.0-0.4); Eosinophils Percent Auto 1.6 % (0-4); Hematocrit 29.1 % (42.0-52.0); Hemoglobin 9.2 g/dl (14.0-18.0); Imm Gran Abs Auto 0.03 X10*3/uL (0.00-0.03); Imm Gran Pct Auto 0.3 % (0.0-0.4); Lymphocytes Absolute Auto 2.3 X10*3/uL (1.2-4.9); Lymphocytes Percent Auto 26.4 % (20-40); MANUAL DIFF FLAG NO; Mean Corpuscular HGB Conc 31.6 g/dl (31.0-36.0); Mean Corpuscular Hemoglobin 20.8 pg (27.0-33.0); Mean Corpuscular Volume 65.8 fL (80.0-98.0); Mean Platelet Volume 9.9 fL (9.4-12.4); Monocytes Absolute Auto 0.8 X10*3/uL (0.1-1.2); Monocytes Percent Auto 9.1 % (2-11); Neutrophils Absolute Auto 5.4 x10*3/uL (2.0-8.3); Platelet Count 387 X10*3/uL (160-400); Red Blood Count 4.42 X10*6/uL (4.60-5.80); White Blood Count 8.7 X10*3/uL (4.8-10.8)
[2024-02-17 02:18] LABS: Appearance Urine Clear; Color Urine Yellow; Glucose Urine UA Negative (Negative); Leukocyte Esterase Urine Negative (Negative); Nitrite Urine Negative (Negative); Specific Gravity - Urine 1.015 (1.005-1.025); Urine Blood Negative (Negative); Urine Ketones Negative (Negative); Urine Protein Negative (Neg-Trace)
[2024-02-17 02:22] LABS: Bacteria Urine None Seen (None Seen); Hyaline Casts Urine 0-2 /LPF (0-2); RBC Urine 0-2 /HPF (0-2); Squamous Epithelial Cell Urine 0-2 /HPF (0-2); WBC Urine 0-5 /HPF (0-5)
[2024-02-17 02:24] LABS: Amphetamine Screen Urine Not Detected (Not Detect); Barbiturates, Urine Not Detected (Not Detect); Benzodiazepines Screen Urine POSITIVE (Not Detect); Cannabinoid Screen Urine Not Detected (Not Detect); Cocaine Screen Urine POSITIVE (Not Detect); Fentanyl, urine POSITIVE (Not Detect); Opiate Screen Urine POSITIVE (Not Detect); Phencyclidine Screen Urine Not Detected (Not Detect)
[2024-02-17 02:31] LABS: Alanine Aminotransferase 94 U/L (0-40); Albumin Level 3.8 g/dL (3.5-5.0); Alkaline Phosphatase 76 U/L (39-117); Anion Gap 13 (12-20); Aspartate Amino Transferase 84 U/L (5-37); Bilirubin Direct 0.4 mg/dL (0.0-0.5); Bilirubin Total 0.8 mg/dL (0.0-1.0); Blood Urea Nitrogen 7 mg/dL (9-16); Calcium 8.9 mg/dL (8.4-10.2); Carbon Dioxide 26 mmol/L (22-29); Chloride 103 mmol/L (96-108); Estimated Glomerular Filt Rate > 60; Ethanol 15 mg/dL; Glucose Random 106 mg/dL (60-115); Lipase 14 U/L (8-78); Potassium 3.8 mmol/L (3.3-5.1); Sodium 138 mmol/L (135-145); Total Protein 7.6 g/dL (6.5-8.0)
[2024-02-17 03:37] VITALS: BP 127/75; PULSE 88; RESP 20; O2SAT 96
[2024-02-17 06:48] VITALS: BP 164/76; PULSE 85; RESP 12; TEMP 36.8; O2SAT 97
--- NOTE | 2024-02-17 08:48 | PC.NURSE ---
WENT TO [facility] PT, STATES HE'S SI. MOVED TO POD, REPORT TO KRISTOPHER DUNAWAY
[2024-02-17 09:06] VITALS: BP 136/99; PULSE 84; RESP 20; TEMP 37.5; O2SAT 95
--- NOTE | 2024-02-17 09:57 | MHC.RECOVRN ---
Met with pt in pod to discuss methadone as pt reported to RN he had not followed up with [facility] after discharge from [facility]. Pt pacing pod, awake, alert, irritable, engages in conversation. Pt reports horrible withdrawal symptoms including restlessness, diaphoresis, upset stomach, body aches. Pt reports things should have gone differently upon discharge from [facility]. Pt reports he has been using heroin/fentanyl, 2 bundles daily, IV, as well as cocaine and alcohol, unable to quantify how much. Pt last received methadone on 02/11/24, 70 mg. Pt would like to restart methadone while here. Discussed with provider, pt to receive 40 mg methadone.
[2024-02-17] MEDS: methADONE HCl 20 MG/2 ML ORAL.CONC 40 MG PO (10:42)
--- NOTE | 2024-02-17 10:56 | PC.NURSE ---
pts left leg is warm to touch and red. Yarelis Leon aware and PO abx ordered.
[2024-02-17] MEDS: cefuroxime axetiL 500 MG TABLET PO (11:34)
[2024-02-17] MEDS: Doxycycline Monohydrate 100 MG CAPSULE PO (11:34)
--- NOTE | 2024-02-17 14:15 | PC.NURSE ---
pt reporting neck pain. pt resting calmly. reports anxiety when disturbed. ate lunch well.
[2024-02-17 14:22] VITALS: BP 147/82; PULSE 101; RESP 14; TEMP 37.2; O2SAT 97
[2024-02-17] MEDS: LORazepam 1 MG TABLET 2 MG PO (14:27)
[2024-02-17 14:55] VITALS: BP 147/82; PULSE 101; RESP 14; TEMP 37.2; O2SAT 97
--- NOTE | 2024-02-17 15:09 | MHC.CARE ---
Patient evaluated by the CARE Team and he does not need inpatient psychiatric treatment, stated he is safe and wants detox. 1400 Call to [facility] in [facility] said they have beds for walk-ins and encouraged patient to come soon. Medications were filled at [facility] and delivered to patient in the POD as he was discharging. Patient sent via [employer].
== END 2024-02-17 15:06 | disposition home or self-care (01) ==
PROVIDERS: Emergency Provider Emergency Medicine Emergency Medical Services
DX: F10.129 Alcohol abuse with intoxication, unspecified (principal); Y90.9 Presence of alcohol in blood, level not specified; M79.605 Pain in left leg; F33.9 Major depressive disorder, recurrent, unspecified; F43.10 Post-traumatic stress disorder, unspecified
CPT/HCPCS: 36415; 80048; 80076; 80307; 81001; 83690; 85025; 99284; S9485

== ENCOUNTER 2024-06-09 02:38 | Emergency (ER) | payer MEDICAID, SELFPAY ==
--- NOTE | ~2024-06-09 | XR_ITS ---
EXAMINATION: XR KNEE, RIGHT CLINICAL INFORMATION: Wound on knee cap COMPARISON: None available. TECHNIQUE: Two views of the right knee. FINDINGS: Osseous alignment is anatomic. Joint spaces appear relatively well-preserved. No acute fracture is seen. Mild anterior soft tissue swelling and suspected laceration. Trace joint effusion. XR/XR knee RT 2V IMPRESSION: Anterior soft tissue swelling and suspected laceration. Trace joint effusion. No acute osseous findings.
[2024-06-09 02:48] VITALS: BP 137/81; BP 168/98; PULSE 87; PULSE 98; RESP 21; TEMP 36.9; O2SAT 92; O2SAT 95; BMI 28.8
[2024-06-09 02:55] VITALS: BP 137/81; PULSE 90; RESP 21; TEMP 36.9; O2SAT 92
--- NOTE | 2024-06-09 04:11 | ED_ITS ---
HPI - Wound/Laceration General Chief Complaint: Wound/Laceration Stated Complaint: WOUND ON KNEE Time Seen by Provider: 06/09/24 04:09 Source: patient Mode of arrival: EMS Limitations: no limitations History of Present Illness ED Provider: maricel PAZ narrative: Patient with history of polysubstance abuse comes here with multiple wounds on the right leg especially on the right knee and the ankle for several weeks does not know what causing wound patient is homeless lives on the street Related Data Previous Rx's ?Medication ?Instructions ?Recorded clonidine HCl 0.1 mg tablet 0.1 mg PO TID 14 days #42 tabs 02/11/24 gabapentin 300 mg capsule 300 mg PO TID 2 weeks #42 caps 02/11/24 methadone 10 mg/mL oral 70 mg (7 mL) PO DAILY #0 mL 02/11/24 concentrate (Methadose) cefuroxime axetil 250 mg tablet 250 mg PO BID 7 days #14 tabs 02/17/24 cefuroxime axetil 250 mg tablet 500 mg (2 x 250 mg) PO BID 7 days 02/17/24 #28 tabs clonidine HCl 0.1 mg tablet 0.1 mg PO TID #42 tabs 02/17/24 doxycycline hyclate 100 mg tablet 100 mg PO BID 7 days #14 tabs 02/17/24 gabapentin 300 mg capsule 300 mg PO TID #30 caps 02/17/24 cephalexin 500 mg capsule 500 mg PO QID 10 days #40 caps 06/09/24 doxycycline hyclate 100 mg tablet 100 mg PO BID #20 tabs 06/09/24 Allergies Allergy/AdvReac Type Severity Reaction Status Date / Time fish derived [FISH] Allergy Unknown UNKNOWN - Verified 06/09/24 02:52 NOT ANAPHYLAXIS PER PATIENT trazodone AdvReac Severe priapr Verified 06/09/24 02:52 Review of Systems 2 Review of Systems: Yes all other systems are reviewed and are negative PMFSH Past Medical History Medical History Depression Polysubstance abuse IVDU (intravenous drug user) Alcohol dependence Recurrent major depression-severe PTSD (post-traumatic stress disorder) PTSD (post-traumatic stress disorder) Hep C w/o coma, chronic Surgical History History of surgery on arm Social History Social History Household Members: Unknown / Unable to assess Household Members Other:: unable to obtain information from patient d/t sedation. Housing: Homeless Do you presently have visiting nurse or other home services: No Alcohol intake: current Alcohol intake frequency: 3 or more drinks per day Alcohol type: beer and hard liquor Comment: pt refused bed alarm Patient Tobacco Use Status: Refuse Tobacco use screen Tobacco use type: Cigarette Cigarette Packs Per Day: 2 Cigarettes Per Day: 40.0 Years Smoked: unknown Smoked in Last 30 Days: Yes e-Cigarette/Vaping Use: Currently Using Second Hand Smoke Exposure: No Substance Use Type: IV Drugs Advance Directives: No Advance Directives Information Provided: No Do you have a plan to hurt others: No Plan service: Yes ([employer]) Sexual orientation: Straight/Heterosexual Physical Exam 2 Vital Signs: Vital Signs: Last Vital Signs Temp 98.5 F 06/09/24 02:55 Pulse 90 06/09/24 02:55 Resp 21 H 06/09/24 02:55 BP 137/81 06/09/24 02:55 Pulse Ox 92 06/09/24 02:55 O2 Del Method Room Air 06/09/24 02:55 BMI result Body Mass Index 28.8 Appearance: Alert. Sleepy but easily arousable. No acute distress. Eyes: PERRLA, No Nystagmus ENT: Pharynx normal. Oral Mucosa moist Neck: Normal inspection. Neck supple. CVS: Normal heart rate and rhythm. Pulses normal. Respiratory: No respiratory distress. Equal air entry bilateral, no wheezing/rales/rhonchi Abdomen: Soft and nontender. Bowel sounds are present, no mass palpable, no CVA tenderness Skin: Skin warm and dry. Normal skin color. Normal skin turgor. Extremities: No lower extremity edema. No calf tenderness right leg with the lesions as the picture Neuro: Oriented X 3. No motor deficit. No sensory deficit.No cerebellar signs , cranial nerves II-XII intact Medications Administered Discontinued Medications Generic Name Dose Route Start Last Admin Trade Name Freq PRN Reason Stop Dose Admin Cephalexin HCl 500 mg 06/09/24 04:26 06/09/24 04:39 Cephalexin 500 Mg Capsule PO 07/25/24 04:27 500 mg ONCE ONE Administration Doxycycline Monohydrate 100 mg 06/09/24 04:26 06/09/24 04:39 Doxycycline Monohydrate 100 Mg Capsule PO 06/09/24 04:27 100 mg ONCE ONE Administration Medical Decision Making Medical Decision Making [facility] Narrative: Patient likely with a MRSA infection will prescribe doxycycline and cephalexin no signs of deep infection knee x-rays negative for effusion Discharge Plan Discharge Clinical Impression: Chronic wound, Cellulitis Patient Disposition: Home, Self-Care Instructions: Cellulitis (ED), Chronic Wounds (ED) Additional Instructions: Local care as advised Take antibiotic as prescribed Report to ER if wounds gets worse Prescriptions: New cephalexin 500 mg capsule 500 mg PO QID 10 Days Qty: 40 0RF doxycycline hyclate 100 mg tablet 100 mg PO BID Qty: 20 0RF No Action gabapentin 300 mg Capsule 300 mg PO TID 14 Days Qty: 42 0RF clonidine HCl 0.1 mg Tablet 0.1 mg PO TID 14 Days Qty: 42 0RF Protocol: Hold for SBP< HOLD for SBP < : 90 methadone [Methadose] 10 mg/mL Concentrate 70 mg PO DAILY Qty: 0 0RF Rx Instructions: Partial Fill upon patient request. gabapentin 300 mg capsule 300 mg PO TID Qty: 30 0RF clonidine HCl 0.1 mg tablet 0.1 mg PO TID Qty: 42 0RF cefuroxime axetil 250 mg tablet 250 mg PO BID 7 Days Qty: 14 0RF doxycycline hyclate 100 mg tablet 100 mg PO BID 7 Days Qty: 14 0RF cefuroxime axetil 250 mg tablet 500 mg PO BID 7 Days Qty: 28 0RF Print Language: Kinyarwanda
[2024-06-09] MEDS: cephALEXin 500 MG CAPSULE PO (04:39)
[2024-06-09] MEDS: Doxycycline Monohydrate 100 MG CAPSULE PO (04:39)
[2024-06-09 06:03] VITALS: BP 139/100; PULSE 91; RESP 16; TEMP 37.2; O2SAT 98
--- NOTE | 2024-06-09 06:25 | PC.NURSE ---
patient refused discharge paperwork. verbal consent for discharge obtained. Alert and oriented, ambulatory with all patient belongings,.
[2024-06-09 06:26] VITALS: BP 139/100; PULSE 91; RESP 16; TEMP 37.2; O2SAT 98
== END 2024-06-09 06:28 | disposition home or self-care (01) ==
PROVIDERS: Emergency Provider Internal Medicine
DX: L03.115 Cellulitis of right lower limb (principal); M25.561 Pain in right knee; F17.210 Nicotine dependence, cigarettes, uncomplicated
CPT/HCPCS: 73560; 99283; 99284

== ENCOUNTER 2024-06-24 13:17 | Inpatient (IN) | payer MEDICAID, SELFPAY ==
[2024-06-24] VITALS (7 sets, daily range): BP systolic 114–170; BP diastolic 51–88; PULSE 78–112; RESP 18–20; TEMP 38.3–40.8; O2SAT 96–100; BMI 27.9
--- NOTE | ~2024-06-24 | XR_ITS ---
EXAMINATION: XR CHEST CLINICAL INFORMATION: Shortness of breath and chest pain COMPARISON: Baseline 07/29/2023 TECHNIQUE: Frontal view of the chest was obtained. FINDINGS: No significant abnormality is noted involving the heart, lungs, mediastinum, bony thorax or soft tissues. XR/XR chest 1V IMPRESSION: Unremarkable examination.
--- NOTE | ~2024-06-24 | MR_ITS ---
EXAMINATION: MR LUMBAR SPINE WITHOUT AND WITH CONTRAST CLINICAL INFORMATION: Back pain, fever COMPARISON: CT 06/24/2024 TECHNIQUE: MRI of the lumbar spine was obtained using routine sequences before and after intravenous administration of 9 mL Gadavist. FINDINGS: There is diffuse T1 hypointense marrow signal throughout the osseous structures. There is significant enhancing marrow edema associated with the left T11-T12 facet joint extending into the left T12 pedicle and posterior T12 vertebral body with significant periarticular inflammatory change in the left paraspinal soft tissues/musculature, suspicious for septic facet arthritis. Small peripherally enhancing fluid collection in the left paraspinal musculature at this level spanning approximately 1.0 cm (image 10, series 7 and image 3, series 10). Enhancing phlegmon asymmetrically effaces the left T11-T12 neural foraminal fat along the course of the exiting left T11 nerve root and extends along the left T11-T12 intercostal region. Enhancing epidural phlegmon is seen within the imaged dorsal thoracic spinal canal, most pronounced at T11-T12, where there is a 7 mm focus of nonenhancement suspicious for dorsal epidural abscess (image 8, series 11), excluded from the [id number] in the axial plane. This contributes to apparent mild to moderate spinal canal stenosis at T11-T12. There is asymmetric severe disc height loss on the right at L4-L5 with right-sided enhancing fluid signal abnormality of the disc space and right-sided cortical endplate irregularity/erosive change better depicted on CT. There is enhancing marrow signal abnormality of the opposing endplates as well as the right L4 and L5 pedicles and articular pillars at this level. There is no significant adjacent paraspinal phlegmon or abscess. Findings may reflect prominent type I Modic endplate changes related to discogenic disease and asymmetric facet arthropathy however developing discitis osteomyelitis and septic facet arthritis are not excluded. Slight levocurvature of the lower lumbar spine. Preserved sagittal alignment. Slight retrolisthesis at L5-S1. There is disc desiccation and moderate disc height loss at L5-S1 and mild disc height loss at L1-L2 and T12-L1 with a few scattered endplate Schmorl's nodes. Enhancing type I Modic endplate changes anteriorly along the L1 greater than T12 inferior endplates. Intraosseous hemangioma in the T11 vertebral body. Level by level detail as follows: L1-L2: No spinal canal or neural foraminal stenosis. L2-L3: No spinal canal or neural foraminal stenosis. L3-L4: No spinal canal or neural foraminal stenosis. L4-L5: Right eccentric disc osteophyte complex, annular disc bulge, and enhancing central annular fissure. Mild bilateral facet arthrosis. No spinal canal stenosis. Mild to moderate right neural foraminal stenosis with encroachment upon the exiting/extraforaminal right L4 nerve root. No significant left neural foraminal narrowing. L5-S1: Annular disc bulge/disc osteophyte complex and mild facet arthrosis. No spinal canal stenosis. Mild to moderate bilateral neural foraminal stenosis with slight impingement upon the exiting/extraforaminal L5 nerve roots. The conus medullaris terminates at the level of L2. The distal spinal cord and is normal. Query of possible nonthickened lipomatous infiltration of the filum terminale below the L5 level. Apparent faint enhancement along several cauda equina nerve roots may be artifactual given extent of motion. Borderline enlarged spleen better appreciated on prior CT. The abdominal aorta is of normal contour and caliber. MR/MR lumbar spine wo/w con IMPRESSION: 1. Findings suspicious for left T11-T12 septic facet arthritis with with periarticular phlegmon and microabscesses in the adjacent left paraspinal soft tissues/musculature. Enhancing phlegmon asymmetrically effaces the left T11-T12 neural foraminal fat along the course of the exiting left T11 nerve root and extends within the left T11-T12 intercostal region. Enhancing epidural phlegmon within the imaged dorsal thoracic spinal canal, most pronounced at T11-T12, where there is a 7 mm focus of nonenhancement suspicious for dorsal epidural abscess, excluded from the [id number] in the axial plane. This contributes to apparent mild to moderate spinal canal stenosis at T11-T12. 2. Asymmetric severe disc height loss on the right at L4-L5 with right-sided enhancing fluid signal abnormality of the disc space, cortical endplate irregularity/erosive change better depicted on CT, and enhancing marrow signal abnormality of the opposing endplates, which may reflect type I Modic endplate changes related to discogenic disease versus discitis-osteomyelitis. Enhancing marrow signal abnormality centered at the right L4-L5 facet joint may be degenerative/stress related and/or reflective of early septic facet arthritis. 3. Apparent faint enhancement along several cauda equina nerve roots may be artifactual given extent of motion. 4. Generalized signal abnormality within the bone marrow which suggests a marrow infiltration process. This is nonspecific and possible etiologies include stimulated red marrow (as can be seen with smoking, altitude, chronic anemia, etc.), chronic infection, and early phases of myelodysplastic/myeloproliferative disorders. Consider correlation with clinical history and, potentially, a CBC with blood smear. 5. Lumbar spondylosis as above without significant spinal canal stenosis at any level. Enhancing central annular fissure at L4-L5. Mild to moderate right L4-L5 and bilateral L5-S1 neural foraminal stenosis.
--- NOTE | ~2024-06-24 | CT_ITS ---
EXAMINATION: CT ABDOMEN AND PELVIS WITH CONTRAST CLINICAL INFORMATION: Fever COMPARISON: CT scan the abdomen and pelvis September 2023 TECHNIQUE: Multidetector volumetric images were obtained from the superior aspect of the liver through the pubic symphysis following administration 85 mL of Omnipaque 350 intravenous contrast. Sagittal and coronal reformatted images were obtained on the technologist's workstation. Oral contrast: No This CT examination was performed using dose optimization techniques as appropriate, variously including the following: *Automated exposure control *Adjustment of mA and/or kV according to patient size (this includes techniques or standardized protocols for targeted exams where dose is matched to indication/reason for exam; i.e. extremities or head) *Use of iterative reconstruction technique DLP: 662 mGy-cm FINDINGS: LUNG BASES: The visualized lung bases are unremarkable. LIVER, GALLBLADDER, AND BILIARY TREE: Decreased attenuation of the liver compatible with hepatic steatosis unchanged. No focal liver lesions. No intrahepatic or extrahepatic biliary dilatation. The gallbladder is unremarkable with no evidence of radiopaque gallstones, gallbladder wall thickening, or obvious pericholecystic inflammatory changes. PANCREAS: Unremarkable. SPLEEN: Borderline enlarged measuring up to 14.8 cm transverse unchanged. No focal abnormality. ADRENAL GLANDS: Unremarkable. KIDNEYS AND URETERS: The kidneys are normal in size, shape, and attenuation. No hydronephrosis, hydroureter, or calculi seen. No perinephric stranding. BLADDER: Unremarkable. GASTROINTESTINAL TRACT: The small and large bowel are unremarkable. The appendix is unremarkable. ABDOMINAL WALL: No significant hernia is appreciated. LYMPH NODES: Normal. VASCULAR: Mild arterial calcification unchanged. PELVIC VISCERA: Unremarkable. OSSEOUS STRUCTURES: There is a limbus vertebra of the superior endplate of L5 anteriorly unchanged. There are prominent degenerative disc changes at L4-L5 with subchondral irregularity and sclerosis somewhat to prior. Less prominent degenerative disc changes present at L5-S1 and L1-L2. Mild left curvature of the lumbar spine. Mild osteoarthritis of both hips. CT/CT abdomen pelvis w IV con IMPRESSION: 1. No acute abnormality. 2. Hepatic steatosis unchanged. 3. Borderline splenomegaly unchanged. 4. Mild calcific atherosclerotic disease. 5. Degenerative changes of the spine and hips. Fleischner guidelines were followed.
--- NOTE | ~2024-06-24 | CT_ITS ---
EXAMINATION: CT ANGIOGRAM OF THE CHEST WITH AND WITHOUT CONTRAST (CT PULMONARY ANGIOGRAM FOR PE) CLINICAL INFORMATION: Reason for Exam Fever, AMS COMPARISON: Chest x-ray performed earlier same day CT imaging of chest PE protocol July 2023 TECHNIQUE: Prior to contrast administration, noncontrast localization images were obtained. Subsequently, multidetector volumetric imaging was performed from the thoracic inlet to below the diaphragms following the administration of 85 mL Omnipaque 350 intravenous contrast. No contrast reaction reported Sagittal, coronal, and MIP oblique sagittal reformatted images were obtained on the CT workstation, uploaded to PACS, and reviewed. This CT examination was performed using dose optimization techniques as appropriate, variously including the following: *Automated exposure control *Adjustment of mA and/or kV according to patient size (this includes techniques or standardized protocols for targeted exams where dose is matched to indication/reason for exam; i.e. extremities or head) *Use of iterative reconstruction technique Total exam dose-length product 405 mGy-cm FINDINGS: Exam is limited because of image degrading motion artifact and suboptimal timing of the contrast QUALITY OF STUDY/CONTRAST BOLUS: Quality of the filling of the pulmonary vessels this not satisfactory resulting in a limited evaluation of the pulmonary vessels for emboli. Additionally the evaluation is limited by image degrading motion artifact. PULMONARY ARTERIES: No pulmonary emboli. However the exam is suboptimal for evaluation of pulmonary emboli as above and therefore cannot be excluded. THORACIC AORTA: No aneurysm. LUNG: No focal consolidation, nodules or masses. PLEURA: No pleural effusion or pneumothorax. MEDIASTINUM: Normal heart size. No pericardial effusion. No hilar or mediastinal lymphadenopathy. No evidence of septal bowing or right heart strain. CORONARY ARTERY CALCIFICATION: None visualized on this study. CHEST WALL/AXILLA: No axillary or internal mammary lymphadenopathy. OSSEOUS STRUCTURES: Mild multilevel spondylosis of the dorsal spine. UPPER ABDOMEN: Diffuse attenuation of the liver compatible with hepatic steatosis unchanged. No reflux of contrast into the hepatic veins to suggest elevated right heart pressures. CT/CT angio chest PE protocol IMPRESSION: 1. No evidence for pulmonary embolism. However the exam is suboptimal for evaluation of pulmonary emboli as above and therefore cannot be excluded. 2. Hepatic steatosis. 3. VTE: indeterminate. 4. No evidence for pneumonia
--- NOTE | ~2024-06-24 | CT_ITS ---
EXAMINATION: CT HEAD WITHOUT CONTRAST CLINICAL INFORMATION: Altered mental status. Fever COMPARISON: CT scan of the head January 2024 TECHNIQUE: Contiguous axial imaging was performed from the skull base to vertex without intravenous administration of contrast. This CT examination was performed using dose optimization techniques as appropriate, variously including the following: *Automated exposure control *Adjustment of mA and/or kV according to patient size (this includes techniques or standardized protocols for targeted exams where dose is matched to indication/reason for exam; i.e. extremities or head) *Use of iterative reconstruction technique DLP: 769 mGy-cm FINDINGS: There is no mass hemorrhage or cerebral edema. Ventricles and basal cisterns normal. Parenchymal normal. Soft tissues/scalp: Normal. Calvarium/bone Chronic appearing deformity of the tip of the nasal bones unchanged. Sinuses: Mild mucosal thickening of the ethmoid sinuses. No change. Mastoid air cells clear. CT/CT head/brain wo IV con IMPRESSION: No acute intracranial pathology.
--- NOTE | 2024-06-24 13:47 | ED.GENADULT ---
HPI - General Adult General Chief complaint: General Medical Stated complaint: CP BACK PAIN Time Seen by Provider: 06/24/24 13:21 History of Present Illness ED Provider: Dr. Johnson HPI narrative: 44 y/o M patient; H polysubstance abuse, alcohol use disorder; presents reporting diffuse body pain with inability to sit still. He states his thoughts are racing, he is feeling nausea, and very tremulous/unable to sit still. He notes he last used IV Fentanyl and alcohol yesterday evening. He does have a history of alcohol withdrawal including withdrawal seizures (most recently 2019). He denies: fever or chills, cough. He denies any recent trauma. Related Data Previous Rx's ?Medication ?Instructions ?Recorded clonidine HCl 0.1 mg tablet 0.1 mg PO TID 14 days #42 tabs 02/11/24 gabapentin 300 mg capsule 300 mg PO TID 2 weeks #42 caps 02/11/24 methadone 10 mg/mL oral 70 mg (7 mL) PO DAILY #0 mL 02/11/24 concentrate (Methadose) cefuroxime axetil 250 mg tablet 250 mg PO BID 7 days #14 tabs 02/17/24 cefuroxime axetil 250 mg tablet 500 mg (2 x 250 mg) PO BID 7 days 02/17/24 #28 tabs clonidine HCl 0.1 mg tablet 0.1 mg PO TID #42 tabs 02/17/24 doxycycline hyclate 100 mg tablet 100 mg PO BID 7 days #14 tabs 02/17/24 gabapentin 300 mg capsule 300 mg PO TID #30 caps 02/17/24 cephalexin 500 mg capsule 500 mg PO QID 10 days #40 caps 06/09/24 doxycycline hyclate 100 mg tablet 100 mg PO BID #20 tabs 06/09/24 Allergies Allergy/AdvReac Type Severity Reaction Status Date / Time fish derived [FISH] Allergy Unknown UNKNOWN - Verified 06/24/24 13:29 NOT ANAPHYLAXIS PER PATIENT trazodone AdvReac Severe priapr Verified 06/24/24 13:29 Review of Systems Review of Systems: Yes all other systems are reviewed and are negative Neurologic: Denies Sensory deficit (Neuro) PMFSH Past Medical History Attestation statement: The following information was validated with the patient. Source: old records reviewed Medical History Depression Polysubstance abuse IVDU (intravenous drug user) Alcohol dependence Recurrent major depression-severe PTSD (post-traumatic stress disorder) PTSD (post-traumatic stress disorder) Hep C w/o coma, chronic Surgical History History of surgery on arm Social History Social History Household Members: Unknown / Unable to assess Household Members Other:: unable to obtain information from patient d/t sedation. Housing: Homeless Do you presently have visiting nurse or other home services: No Alcohol intake: current Alcohol intake frequency: 3 or more drinks per day Alcohol type: beer and hard liquor Comment: pt refused bed alarm Patient Tobacco Use Status: Refuse Tobacco use screen Tobacco use type: Cigarette Cigarette Packs Per Day: 2 Cigarettes Per Day: 40.0 Years Smoked: unknown Smoked in Last 30 Days: Yes e-Cigarette/Vaping Use: Currently Using Second Hand Smoke Exposure: No Use of substances other than those prescribed or required for medical reasons: No Substance Use Type: IV Drugs Advance Directives: No Advance Directives Information Provided: No service: Yes ([place]) Sexual orientation: Straight/Heterosexual Physical Exam ED Vital Signs: Vital Signs - 24 hr 06/24/24 13:27 06/24/24 17:11 06/24/24 18:00 Temperature 105.4 F H 103.8 F H Pulse Rate 112 H 109 H Respiratory Rate 18 18 Blood Pressure 135/65 126/60 Pulse Oximetry 98 99 Oxygen Delivery Method Room Air Nasal Cannula Oxygen Flow Rate 3 06/24/24 18:29 06/24/24 20:00 Temperature 103.3 F H 102.7 F H Pulse Rate 105 H 105 H Respiratory Rate 18 20 Blood Pressure 114/51 L 128/72 Pulse Oximetry 98 96 Oxygen Delivery Method Nasal Cannula Room Air Oxygen Flow Rate 2 BMI result Body Mass Index 27.9 Patient is tachycardic, mildly hypertensive. Const Other: Anxious, pacing, unable to sit still. Orientation/consciousness: patient oriented x3 HENMT Head: Yes normal to inspection and Yes atraumatic Eyes General: appearance normal, both eyes and all related structures Pupils: Equal, round and reactive pupils present EOM: EOMs intact bilaterally Neck Neck: Yes normal visual inspection, Yes full ROM, No supple and No tender Chest Chest palpation & inspection: normal inspection of the chest and normal palpation of entire chest wall Resp Effort & Inspection: normal respiratory effort, able to speak in complete sentences, no cough and no respiratory distress Auscultation: clear to auscultation bilaterally Cardio Rate: tachycardic Rhythm: regular rhythm Peripheral pulses: Peripheral pulses 2+ throughout GI Inspection: Yes normal to inspection, No Abdominal wall edema and No distended Palpation (GI): Soft to palpation, not firm, nontender, no guarding and not rigid Auscultation: normal bowel sounds Back/Spine/Pelvis Back: No back tenderness Neuro General: patient oriented x3 and gait normal Cranial nerves: Yes Equal, round and reactive pupils present Motor exam (neuro): 5/5 motor strength present throughout Sensory Exam: No Sensory deficit (Neuro) Extrem Other: Chronic healing wounds to right lower extremity knee and ankle Course Course Course Narrative: Patient is afebrile, tachycardic, and mildly hypertensive. Will obtain EKG, laboratory studies. Patient unable to sit still for EKG. Due to agitation, psychomotor irritation, tachycardia, and history of complex alcohol withdrawal - will treat with phenobarbitol 15mg/kg ideal body weight. Provided droperidol for nausea. Re-evaluated after medication - improvement in agitation. Sleeping calmly. Labs reviewed. Mild leukocytosis 15.4. Baseline anemia 9.0. Mild hyponatremia 130. Baseline transaminitis. Utox positive for opiates, fentanyl, cocaine. Ethanol 48. COVID/Flu/RSV negative. Patient febrile to 105F rectally. Exam without rigidity or clonus. Providing Tylenol 1g IV. Ordered for blood cultures, LA, and CPK. Added orders for CT imaging. Patient became hypoxic after phenobarbitol requiring 3L NC for supplementation. CXR unremarkable. LA 1.0. CPK mildly elevated 496. ESR 36. CRP 6. CT Head unremarkable. Patient provided Toradol for continued fever. Receiving 2L IVF. Providing ice packs and cooling blanket for fever. CT Abdomen/Pelvis/Chest unremarkable for acute findings. Plan: Admit to hospitalist for acute encephalopathy, substance abuse, febrile illness Condition: Stable Medications Administered Generic Name Dose Route Start Last Admin Trade Name Freq PRN Reason Stop Dose Admin Sodium Chloride 1,000 mls @ 999 mls/hr 06/24/24 20:45 06/24/24 20:50 Ns IV 06/24/24 21:45 999 mls/hr .Q1H1M MELQUIADES Administration Phenobarbital Sodium 339 mg 06/24/24 19:00 06/24/24 19:32 Phenobarbital Sodium 130 Mg/Ml Vial Im Q3hx2 IM 06/24/24 22:01 Not Given Q3H MELQUIADES Discontinued Medications Generic Name Dose Route Start Last Admin Trade Name Freq PRN Reason Stop Dose Admin Droperidol 2.5 mg 06/24/24 15:08 06/24/24 15:14 Droperidol 5 Mg/2 Ml Vial IVPUSH 06/24/24 15:09 2.5 mg ONCE ONE Administration Sodium Chloride 1,000 mls @ 999 mls/hr 06/24/24 15:15 06/24/24 18:04 Ns IV 06/24/24 16:15 Infused .Q1H1M MELQUIADES Infusion Acetaminophen 1,000 mg in 100 mls @ 400 mls/hr 06/24/24 16:51 06/24/24 17:33 Ofirmev IV 06/24/24 17:05 Infused ONCE ONE Infusion Vancomycin HCl 2,000 mg/ 500 mls @ 250 mls/hr 06/24/24 16:52 06/24/24 20:09 Sodium Chloride IV 06/24/24 18:51 Infused ONCE ONE Infusion Cefepime HCl 2 gm/ Sodium 50 mls @ 100 mls/hr 06/24/24 16:52 06/24/24 18:04 Chloride IV 06/24/24 17:21 Infused ONCE ONE Infusion Iohexol 100 ml 06/24/24 19:02 06/24/24 19:03 Iohexol 350 Mg/Ml 100 Ml Infus..Btl IV 06/24/24 19:03 85 ml ONCE ONE Administration Ketorolac Tromethamine 15 mg 06/24/24 20:41 06/24/24 20:49 Ketorolac Tromethamine 15 Mg/Ml Vial IVPUSH 06/24/24 20:42 15 mg ONCE ONE Administration Phenobarbital Sodium 451 mg 06/24/24 15:30 06/24/24 15:49 Phenobarbital Sodium 130 Mg/Ml Im Once IM 06/24/24 15:31 451 mg ONCE ONE Administration Medical Decision Making Lab Data 06/24/24 14:42 08/09/24 14:42 Labs: Lab Results 06/24/24 06/24/24 06/24/24 Range/Units 14:42 17:00 17:03 WBC 15.4 H (4.8-10.8) X10*3/uL RBC 4.34 L (4.60-5.80) X10*6/uL Hgb 9.0 L (14.0-18.0) g/dl Hct 28.3 L (42.0-52.0) % MCV 65.2 L (80.0-98.0) fL MCH 20.7 L (27.0-33.0) pg MCHC 31.8 (31.0-36.0) g/dl RDW 19.4 H (11.0-16.0) % Plt Count 331 (160-400) X10*3/uL MPV 10.3 (9.4-12.4) fL Immature Gran % (Auto) 1.0 H (0.0-0.4) % Neut % (Auto) 78.1 H (45-73) % Lymph % (Auto) 9.7 L (20-40) % [place] % (Auto) 10.7 (2-11) % Eos % (Auto) 0.0 (0-4) % Baso % (Auto) 0.5 (0-2) % Lymph # (Auto) 1.5 (1.2-4.9) X10*3/uL [place] # (Auto) 1.7 H (0.1-1.2) X10*3/uL Eos # (Auto) 0.0 (0.0-0.4) X10*3/uL Baso # (Auto) 0.1 (0.0-0.2) X10*3/uL Abs Immat Gran (auto) 0.16 H (0.00-0.03) X10*3/uL Absolute Neuts (auto) 12.0 H (2.0-8.3) x10*3/uL Absolute Nucleated RBC 0.000 (0.0-0.012) X10*3/uL Nucleated RBC % (auto) 0.0 (0.0-0.2) /100WBC Smear Tech's Comments VERIFIED ESR 36 H (0-15) MM/HR Hold Purple Top SEE NOTE Hold Blue Top SEE NOTE VBG pH (7.32-7.43) VBG pCO2 mmHg VBG pO2 mmHg VBG HCO3 (22-26) mmol/L VBG O2 Saturation % VBG Base Excess mmol/L Sodium 130 L (135-145) mmol/L Potassium 4.1 (3.3-5.1) mmol/L Chloride 96 (96-108) mmol/L Carbon Dioxide 25 (22-29) mmol/L Anion Gap 13 (12-20) BUN 3 L (9-16) mg/dL Creatinine 0.69 (0.5-1.4) mg/dL Estim Creat Clear Calc 155.7 Estimated GFR > 60 Random Glucose 97 (60-115) mg/dL Lactic Acid 1.0 (0.5-2.0) mmol/L Calcium 8.9 (8.4-10.2) mg/dL Total Bilirubin 1.5 H (0.0-1.0) mg/dL Direct Bilirubin 0.7 H (0.0-0.5) mg/dL AST 95 H (5-37) U/L ALT 64 H (0-40) U/L Alkaline Phosphatase 74 (39-117) U/L Total Creatine Kinase 496 H (38-174) U/L Troponin I High Sens 4.3 D (<3.5-35.0) ng/L C-Reactive Protein 6.04 H (< or = 0.50) mg/dL Total Protein 8.1 H (6.5-8.0) g/dL Albumin 3.6 (3.5-5.0) g/dL Lipase 12 (8-78) U/L Urine Opiates Screen POSITIVE H (Not Detect) Ur Buprenorphine Scrn Not Detected (Not Detect) ng/mL Ur Oxycodone Screen Not Detected (Not Detect) ng/mL Urine Methadone Screen Not Detected (Not Detect) ng/mL Urine Fentanyl Screen POSITIVE H (Not Detect) Ur Barbiturates Screen Not Detected (Not Detect) Ur Phencyclidine Scrn Not Detected (Not Detect) Ur Amphetamines Screen Not Detected (Not Detect) U Benzodiazepines Scrn Not Detected (Not Detect) Urine Cocaine Screen POSITIVE H (Not Detect) U Marijuana (THC) Screen Not Detected (Not Detect) Ethyl Alcohol 48 mg/dL Influenza Type A (PCR) NEGATIVE (Negative) Influenza Type B (PCR) NEGATIVE (Negative) RSV RNA Qual (PCR) NEGATIVE (Negative) SARS-CoV-2 RNA (RT-PCR) NEGATIVE (Negative) 06/24/24 Range/Units 17:12 WBC (4.8-10.8) X10*3/uL RBC (4.60-5.80) X10*6/uL Hgb (14.0-18.0) g/dl Hct (42.0-52.0) % MCV (80.0-98.0) fL MCH (27.0-33.0) pg MCHC (31.0-36.0) g/dl RDW (11.0-16.0) % Plt Count (160-400) X10*3/uL MPV (9.4-12.4) fL Immature Gran % (Auto) (0.0-0.4) % Neut % (Auto) (45-73) % Lymph % (Auto) (20-40) % [place] % (Auto) (2-11) % Eos % (Auto) (0-4) % Baso % (Auto) (0-2) % Lymph # (Auto) (1.2-4.9) X10*3/uL [place] # (Auto) (0.1-1.2) X10*3/uL Eos # (Auto) (0.0-0.4) X10*3/uL Baso # (Auto) (0.0-0.2) X10*3/uL Abs Immat Gran (auto) (0.00-0.03) X10*3/uL Absolute Neuts (auto) (2.0-8.3) x10*3/uL Absolute Nucleated RBC (0.0-0.012) X10*3/uL Nucleated RBC % (auto) (0.0-0.2) /100WBC Smear Tech's Comments ESR (0-15) MM/HR Hold Purple Top Hold Blue Top VBG pH 7.45 H (7.32-7.43) VBG pCO2 41 mmHg VBG pO2 66 mmHg VBG HCO3 29 H (22-26) mmol/L VBG O2 Saturation 92.0 % VBG Base Excess 5.5 mmol/L Sodium (135-145) mmol/L Potassium (3.3-5.1) mmol/L Chloride (96-108) mmol/L Carbon Dioxide (22-29) mmol/L Anion Gap (12-20) BUN (9-16) mg/dL Creatinine (0.5-1.4) mg/dL Estim Creat Clear Calc Estimated GFR Random Glucose (60-115) mg/dL Lactic Acid (0.5-2.0) mmol/L Calcium (8.4-10.2) mg/dL Total Bilirubin (0.0-1.0) mg/dL Direct Bilirubin (0.0-0.5) mg/dL AST (5-37) U/L ALT (0-40) U/L Alkaline Phosphatase (39-117) U/L Total Creatine Kinase (38-174) U/L Troponin I High Sens (<3.5-35.0) ng/L C-Reactive Protein (< or = 0.50) mg/dL Total Protein (6.5-8.0) g/dL Albumin (3.5-5.0) g/dL Lipase (8-78) U/L Urine Opiates Screen (Not Detect) Ur Buprenorphine Scrn (Not Detect) ng/mL Ur Oxycodone Screen (Not Detect) ng/mL Urine Methadone Screen (Not Detect) ng/mL Urine Fentanyl Screen (Not Detect) Ur Barbiturates Screen (Not Detect) Ur Phencyclidine Scrn (Not Detect) Ur Amphetamines Screen (Not Detect) U Benzodiazepines Scrn (Not Detect) Urine Cocaine Screen (Not Detect) U Marijuana (THC) Screen (Not Detect) Ethyl Alcohol mg/dL Influenza Type A (PCR) (Negative) Influenza Type B (PCR) (Negative) RSV RNA Qual (PCR) (Negative) SARS-CoV-2 RNA (RT-PCR) (Negative) Radiology Impression Discussion of test interpretation with radiology: I have reviewed the radiologist's reading. Radiologist Impression: EXAMINATION: XR CHEST CLINICAL INFORMATION: Shortness of breath and chest pain COMPARISON: Baseline 07/29/2023 TECHNIQUE: Frontal view of the chest was obtained. FINDINGS: No significant abnormality is noted involving the heart, lungs, mediastinum, bony thorax or soft tissues. XR/XR chest 1V IMPRESSION: Unremarkable examination. EXAMINATION: CT ANGIOGRAM OF THE CHEST WITH AND WITHOUT CONTRAST (CT PULMONARY ANGIOGRAM FOR PE) CLINICAL INFORMATION: Reason for Exam Fever, AMS COMPARISON: Chest x-ray performed earlier same day CT imaging of chest PE protocol July 2023 TECHNIQUE: Prior to contrast administration, noncontrast localization images were obtained. Subsequently, multidetector volumetric imaging was performed from the thoracic inlet to below the diaphragms following the administration of 85 mL Omnipaque 350 intravenous contrast. No contrast reaction reported Sagittal, coronal, and MIP oblique sagittal reformatted images were obtained on the CT workstation, uploaded to PACS, and reviewed. This CT examination was performed using dose optimization techniques as appropriate, variously including the following: *Automated exposure control *Adjustment of mA and/or kV according to patient size (this includes techniques or standardized protocols for targeted exams where dose is matched to indication/reason for exam; i.e. extremities or head) *Use of iterative reconstruction technique Total exam dose-length product 405 mGy-cm FINDINGS: Exam is limited because of image degrading motion artifact and suboptimal timing of the contrast QUALITY OF STUDY/CONTRAST BOLUS: Quality of the filling of the pulmonary vessels this not satisfactory resulting in a limited evaluation of the pulmonary vessels for emboli. Additionally the evaluation is limited by image degrading motion artifact. PULMONARY ARTERIES: No pulmonary emboli. However the exam is suboptimal for evaluation of pulmonary emboli as above and therefore cannot be excluded. THORACIC AORTA: No aneurysm. LUNG: No focal consolidation, nodules or masses. PLEURA: No pleural effusion or pneumothorax. MEDIASTINUM: Normal heart size. No pericardial effusion. No hilar or mediastinal lymphadenopathy. No evidence of septal bowing or right heart strain. CORONARY ARTERY CALCIFICATION: None visualized on this study. CHEST WALL/AXILLA: No axillary or internal mammary lymphadenopathy. OSSEOUS STRUCTURES: Mild multilevel spondylosis of the dorsal spine. UPPER ABDOMEN: Diffuse attenuation of the liver compatible with hepatic steatosis unchanged. No reflux of contrast into the hepatic veins to suggest elevated right heart pressures. CT/CT angio chest PE protocol IMPRESSION: 1. No evidence for pulmonary embolism. However the exam is suboptimal for evaluation of pulmonary emboli as above and therefore cannot be excluded. 2. Hepatic steatosis. 3. VTE: indeterminate. 4. No evidence for pneumonia EXAMINATION: CT HEAD WITHOUT CONTRAST CLINICAL INFORMATION: Altered mental status. Fever COMPARISON: CT scan of the head January 2024 TECHNIQUE: Contiguous axial imaging was performed from the skull base to vertex without intravenous administration of contrast. This CT examination was performed using dose optimization techniques as appropriate, variously including the following: *Automated exposure control *Adjustment of mA and/or kV according to patient size (this includes techniques or standardized protocols for targeted exams where dose is matched to indication/reason for exam; i.e. extremities or head) *Use of iterative reconstruction technique DLP: 769 mGy-cm FINDINGS: There is no mass hemorrhage or cerebral edema. Ventricles and basal cisterns normal. Parenchymal normal. Soft tissues/scalp: Normal. Calvarium/bone Chronic appearing deformity of the tip of the nasal bones unchanged. Sinuses: Mild mucosal thickening of the ethmoid sinuses. No change. Mastoid air cells clear. CT/CT head/brain wo IV con IMPRESSION: No acute intracranial pathology. Critical Care Time Critical Care Time Critical Care Time: Yes Total Critical Care Time: 50 Attestation: Due to a high probability of clinically significant, life threatening deterioration, the patient required my highest level of preparedness to intervene emergently and I personally spent this critical care time directly and personally managing the patient. This critical care time included obtaining a history; examining the patient; pulse oximetry; ordering and review of studies; arranging urgent treatment with development of a management plan; evaluation of patient's response to treatment; frequent reassessment; and, discussions with other providers. This critical care time was performed to assess and manage the high probability of imminent, life-threatening deterioration that could result in multi-organ failure. It was exclusive of separately billable procedures and treating other patients and teaching time. Discharge Plan Discharge Clinical Impression: Active substance abuse, Fever, Acute encephalopathy, Leukocytosis Patient Disposition: Admitted As Inpatient Prescriptions: No Action gabapentin 300 mg Capsule 300 mg PO TID 14 Days Qty: 42 0RF clonidine HCl 0.1 mg Tablet 0.1 mg PO TID 14 Days Qty: 42 0RF Protocol: Hold for SBP< HOLD for SBP < : 90 methadone [Methadose] 10 mg/mL Concentrate 70 mg PO DAILY Qty: 0 0RF Rx Instructions: Partial Fill upon patient request. cephalexin 500 mg capsule 500 mg PO QID 10 Days Qty: 40 0RF doxycycline hyclate 100 mg tablet 100 mg PO BID Qty: 20 0RF gabapentin 300 mg capsule 300 mg PO TID Qty: 30 0RF clonidine HCl 0.1 mg tablet 0.1 mg PO TID Qty: 42 0RF cefuroxime axetil 250 mg tablet 250 mg PO BID 7 Days Qty: 14 0RF doxycycline hyclate 100 mg tablet 100 mg PO BID 7 Days Qty: 14 0RF cefuroxime axetil 250 mg tablet 500 mg PO BID 7 Days Qty: 28 0RF Print Language: Surinamese
--- NOTE | 2024-06-24 14:13 | ECG_ITS ---
Test Reason : CHEST PAIN Blood Pressure : / mmHG Vent. Rate : 107 BPM Atrial Rate : 107 BPM P-R Int : 122 ms QRS Dur : 096 ms QT Int : 338 ms P-R-T Axes : 059 046 016 degrees QTc Int : 451 ms Sinus tachycardia RSR' or QR pattern in V1 suggests right ventricular conduction delay Borderline ECG When compared with ECG of 03-FEB-2024 09:50, No significant change was found Referred By: Aracely Johnson Electronically Signed By:SANDRA LINK MD
[2024-06-24 15:00] LABS: Basophils Absolute Auto 0.1 X10*3/uL (0.0-0.2); Basophils Percent Auto 0.5 % (0-2); Hematocrit 28.3 % (42.0-52.0); Imm Gran Abs Auto 0.16 X10*3/uL (0.00-0.03); Lymphocytes Absolute Auto 1.5 X10*3/uL (1.2-4.9); Lymphocytes Percent Auto 9.7 % (20-40); MANUAL DIFF FLAG SCAN; Mean Corpuscular HGB Conc 31.8 g/dl (31.0-36.0); Mean Corpuscular Hemoglobin 20.7 pg (27.0-33.0); Mean Corpuscular Volume 65.2 fL (80.0-98.0); Mean Platelet Volume 10.3 fL (9.4-12.4); Monocytes Absolute Auto 1.7 X10*3/uL (0.1-1.2); Monocytes Percent Auto 10.7 % (2-11); Neutrophils Percent Auto 78.1 % (45-73); Platelet Count 331 X10*3/uL (160-400); Red Blood Count 4.34 X10*6/uL (4.60-5.80); Red Cell Distribution Width 19.4 % (11.0-16.0); SCAN SMEAR FLAG 1; White Blood Count 15.4 X10*3/uL (4.8-10.8)
[2024-06-24 15:09] LABS: Amphetamine Screen Urine Not Detected (Not Detect); Barbiturates, Urine Not Detected (Not Detect); Benzodiazepines Screen Urine Not Detected (Not Detect); Buprenorphine Scr Not Detected (Not Detect); Cannabinoid Screen Urine Not Detected (Not Detect); Cocaine Screen Urine POSITIVE (Not Detect); Fentanyl, urine POSITIVE (Not Detect); Methadone Screen, Urine Not Detected (Not Detect); Opiate Screen Urine POSITIVE (Not Detect); Oxycodone Screen Urine Not Detected (Not Detect); Phencyclidine Screen Urine Not Detected (Not Detect)
[2024-06-24] MEDS: droPERidol 5 MG/2 ML VIAL 2.5 MG IVPUSH (15:14)
[2024-06-24 15:16] LABS: Alanine Aminotransferase 64 U/L (0-40); Albumin Level 3.6 g/dL (3.5-5.0); Alkaline Phosphatase 74 U/L (39-117); Anion Gap 13 (12-20); Aspartate Amino Transferase 95 U/L (5-37); Bilirubin Direct 0.7 mg/dL (0.0-0.5); Bilirubin Total 1.5 mg/dL (0.0-1.0); Blood Urea Nitrogen 3 mg/dL (9-16); Calcium 8.9 mg/dL (8.4-10.2); Carbon Dioxide 25 mmol/L (22-29); Chloride 96 mmol/L (96-108); Creatinine Clr Calc Pharmacy 155.7; Estimated Glomerular Filt Rate > 60; Glucose Random 97 mg/dL (60-115); Lipase 12 U/L (8-78); Potassium 4.1 mmol/L (3.3-5.1); Sodium 130 mmol/L (135-145); Total Protein 8.1 g/dL (6.5-8.0)
[2024-06-24 15:40] LABS: Influenza A PCR NEGATIVE (Negative); Influenza B PCR NEGATIVE (Negative); Resp Syncy Virus RNA Qual PCR NEGATIVE (Negative); SARS COV2 PCR INHOUSE NEGATIVE (Negative)
[2024-06-24] MEDS: PHENobarbitaL sodium 130 MG/ML IM ONCE 451 MG IM (15:49)
[2024-06-24] MEDS: 0.9 % Sodium Chloride 1,000 ML 999 ML IV ×2 (15:50→20:50)
--- NOTE | 2024-06-24 16:02 | PC.NURSE ---
Patient brought in by EMS with reports of 10/10 back and chest pain that strted today. Patient restless removing hospital attire stating he has adhd and cant sit still. IV placed in left shoulder. Medicated per mar with good effect. Patient reports last IV drug use was heroin yesterday and last drink of ETOH yesterday. patient with withdrawl symptoms. medicated per mar with good effect.
[2024-06-24 16:03] LABS: Ethanol 48 mg/dL
[2024-06-24 16:15] LABS: Troponin-I High Sensitivity 4.3 ng/L (<3.5-35.0)
[2024-06-24 16:38] LABS: SLIDE REVIEW VERIFIED
[2024-06-24] MEDS: Acetaminophen 1,000 MG/100 ML PIGGYBACK 400 MG IV (17:11)
[2024-06-24 17:21] LABS: VBG Base Excess 5.5 mmol/L; VBG HCO3 29 mmol/L (22-26); VBG pCO2 41 mmHg; VBG pH 7.45 (7.32-7.43); VBG pO2 66 mmHg
[2024-06-24] MEDS: cefEPime HCl 2 GM in 0.9 % Sodium Chloride 50 ML IV (17:23)
--- NOTE | 2024-06-24 17:47 | PC.NURSE ---
Patient with increased temp and lethargy, provider at bedside to assess. 18g placed in right wrist, 20g placed in right AC. rectal probe placed. medicated per jan with improvement in temp. Ice packs placed. Patient responds to verbal stimuli but becomes agitated. Voided 200mls in urinal. placed on 4 liters NC sating 97%. Provider aware
[2024-06-24 17:49] LABS: C Reactive Protein 6.04 mg/dL (< or = 0.50)
[2024-06-24 18:01] LABS: Venous Blood Gas Refer to POC result
[2024-06-24] MEDS: iohexoL 350 MG/ML 100 ML INFUS..BTL IV (19:03)
[2024-06-24 19:18] LABS: Erythrocyte Sedimentation Rate 36 MM/HR (0-15)
--- NOTE | 2024-06-24 19:37 | PC.NURSE ---
1900 dose of phenobarb not administered per verbal from .
[2024-06-24] MEDS: Ketorolac Tromethamine 15 MG/ML VIAL IVPUSH (20:49)
--- NOTE | 2024-06-24 21:11 | PC.NURSE ---
T103.3 - IV toradol given, NS 1L bolus running, and pt placed on a cooling blanket. pt is responsive to name, however remains lethargic.
--- NOTE | 2024-06-24 21:14 | PM.IMHP ---
History of Present Illness Date of Service: 06/24/24 Chief Complaint: Fevers and chills This is a 44-year-old male with pertinent history of IV drug use disorder, alcohol use disorder, mood disorder who presents to the emergency department for evaluation of fevers and chills. Unable to obtain history from the patient as he is asleep and not willing to answer questions. History obtained with the help of ER provider and chart review. Upon initial presentation, patient was walking naked in the ER room back and forth and was agitated as per ER physician. Patient stated that he last used IV fentanyl 1 day prior to presentation. He last used alcohol 1 day prior to presentation. Does have a history of alcohol withdrawal including alcohol withdrawal seizures. Denies trauma. No chest pain. Unable to obtain review of systems. Review of Systems Review of Systems: Yes Unobtainable due to mental status PMFSH Medical History Depression Polysubstance abuse IVDU (intravenous drug user) Alcohol dependence Recurrent major depression-severe PTSD (post-traumatic stress disorder) PTSD (post-traumatic stress disorder) Hep C w/o coma, chronic Pertinent family history: Unable to obtain Surgical History History of surgery on arm Social History Household Members: Unknown / Unable to assess Household Members Other:: unable to obtain information from patient d/t sedation. Housing: Homeless Do you presently have visiting nurse or other home services: No Alcohol intake: current Alcohol intake frequency: 3 or more drinks per day Alcohol type: beer and hard liquor Comment: pt refused bed alarm Patient Tobacco Use Status: Refuse Tobacco use screen Tobacco use type: Cigarette Cigarette Packs Per Day: 2 Cigarettes Per Day: 40.0 Years Smoked: unknown Smoked in Last 30 Days: Yes e-Cigarette/Vaping Use: Currently Using Second Hand Smoke Exposure: No Use of substances other than those prescribed or required for medical reasons: No Substance Use Type: IV Drugs Advance Directives: No Advance Directives Information Provided: No Nutrition Risks: No Nutritional Risk service: Yes ([employer]) Sexual orientation: Straight/Heterosexual Meds Allergies Allergy/AdvReac Type Severity Reaction Status Date / Time fish derived [FISH] Allergy Unknown UNKNOWN - Verified 06/24/24 13:29 NOT ANAPHYLAXIS PER PATIENT trazodone AdvReac Severe priapr Verified 06/24/24 13:29 Active Medications: Current Medications Acetaminophen (Acetaminophen 325 Mg Tablet) 650 mg PO Q6H PRN PRN Reason: Pain, Mild (Pain Scale 1-3), fever or headache Calcium Carbonate (Calcium Carbonate 750 Mg Tab.Chew) 750 mg PO Q4H PRN PRN Reason: Heartburn Enoxaparin Sodium (Enoxaparin Sodium 40 Mg/0.4 Ml Syringe) 40 mg SUBCUT Q24H [facility] Sodium Chloride (Ns) 1,000 mls @ 999 mls/hr IV .Q1H1M [facility] Stop: 06/24/24 21:45 Last Admin: 06/24/24 20:50 Dose: 999 mls/hr Magnesium Hydroxide (Milk Of Magnesia 30 Ml Oral.Susp) 30 ml PO DAILY PRN PRN Reason: Constipation Melatonin (Melatonin 3 Mg Tablet) 6 mg PO BEDTIME PRN PRN Reason: Insomnia Ondansetron HCl (Ondansetron Hcl 4 Mg/2 Ml Vial) 4 mg IVPUSH Q8H PRN PRN Reason: Nausea and Vomiting Pharmacy Consult (Consult Rx Etoh Phenob Im/Po) 1 each MISCELLANE ONCE PRN; Protocol PRN Reason: Consult order Pharmacy Consult (Consult Rx Vancomycin Dosing) 1 each MISCELLANE DAILY PRN PRN Reason: Consult order Phenobarbital (Phenobarbital 30 Mg Tablet) 60 mg PO BID [facility] Stop: 06/26/24 21:01 Phenobarbital (Phenobarbital 30 Mg Tablet) 30 mg PO BID [facility] Stop: 06/28/24 21:01 Phenobarbital (Phenobarbital 15 Mg Tablet) 15 mg PO DAILY [facility] Stop: 06/30/24 09:01 Phenobarbital Sodium (Phenobarbital Sodium 130 Mg/Ml Vial Im Q3hx2) 339 mg IM Q3H [facility] Stop: 06/24/24 22:01 Last Admin: 06/24/24 19:32 Dose: Not Given Sodium Chloride (0.9 % Sodium Chloride Flush 3 Ml Syringe) 3 ml IVFLUSH QSHIFT [facility] Home Medications ?Medication ?Instructions ?Recorded ?Confirmed ?Last Taken ?Type gabapentin 800 mg tablet 800 mg PO TID 06/24/24 Unknown History Physical Exam Vital Signs and Narrative: Vital Signs: Last Vital Signs Temp 102.7 F H 06/24/24 20:00 Pulse 105 H 06/24/24 20:00 Resp 20 06/24/24 20:00 BP 128/72 06/24/24 20:00 Pulse Ox 96 06/24/24 20:00 O2 Del Method Room Air 06/24/24 20:00 O2 Flow Rate 2 06/24/24 18:29 BMI result Body Mass Index 27.9 Middle-aged male lying in bed in no distress Neck supple, no JVD Tachycardic with regular rhythm, S1-S2 heard Regular breath sounds bilaterally, no wheezing or crackles appreciated Abdomen soft nontender, no guarding, no rigidity Patient is drowsy and only responding in 1 word occasionally to verbal stimulus, not following commands Psych: Lethargic Track lee seen Results Labs 06/24/24 14:42 06/24/24 14:42 Labs: Laboratory Results - last 24 hr 06/24/24 06/24/24 06/24/24 14:42 17:00 17:03 MCV 65.2 L MCH 20.7 L MCHC 31.8 RDW 19.4 H Plt Count 331 MPV 10.3 Immature Gran % (Auto) 1.0 H Neut % (Auto) 78.1 H Lymph % (Auto) 9.7 L [place] % (Auto) 10.7 Eos % (Auto) 0.0 Baso % (Auto) 0.5 Lymph # (Auto) 1.5 [place] # (Auto) 1.7 H Eos # (Auto) 0.0 Baso # (Auto) 0.1 Abs Immat Gran (auto) 0.16 H Absolute Neuts (auto) 12.0 H Absolute Nucleated RBC 0.000 Nucleated RBC % (auto) 0.0 Smear Tech's Comments VERIFIED ESR 36 H Hold Purple Top SEE NOTE Hold Blue Top SEE NOTE VBG pH VBG pCO2 VBG pO2 VBG HCO3 VBG O2 Saturation VBG Base Excess Anion Gap 13 Estim Creat Clear Calc 155.7 Estimated GFR > 60 Random Glucose 97 Lactic Acid 1.0 Calcium 8.9 Total Bilirubin 1.5 H Direct Bilirubin 0.7 H AST 95 H ALT 64 H Alkaline Phosphatase 74 Total Creatine Kinase 496 H Troponin I High Sens 4.3 D C-Reactive Protein 6.04 H Total Protein 8.1 H Albumin 3.6 Lipase 12 Urine Opiates Screen POSITIVE H Ur Buprenorphine Scrn Not Detected Ur Oxycodone Screen Not Detected Urine Methadone Screen Not Detected Urine Fentanyl Screen POSITIVE H Ur Barbiturates Screen Not Detected Ur Phencyclidine Scrn Not Detected Ur Amphetamines Screen Not Detected U Benzodiazepines Scrn Not Detected Urine Cocaine Screen POSITIVE H U Marijuana (THC) Screen Not Detected Ethyl Alcohol 48 Influenza Type A (PCR) NEGATIVE Influenza Type B (PCR) NEGATIVE RSV RNA Qual (PCR) NEGATIVE SARS-CoV-2 RNA (RT-PCR) NEGATIVE 06/24/24 17:12 MCV MCH MCHC RDW Plt Count MPV Immature Gran % (Auto) Neut % (Auto) Lymph % (Auto) [place] % (Auto) Eos % (Auto) Baso % (Auto) Lymph # (Auto) [place] # (Auto) Eos # (Auto) Baso # (Auto) Abs Immat Gran (auto) Absolute Neuts (auto) Absolute Nucleated RBC Nucleated RBC % (auto) Smear Tech's Comments ESR Hold Purple Top Hold Blue Top VBG pH 7.45 H VBG pCO2 41 VBG pO2 66 VBG HCO3 29 H VBG O2 Saturation 92.0 VBG Base Excess 5.5 Anion Gap Estim Creat Clear Calc Estimated GFR Random Glucose Lactic Acid Calcium Total Bilirubin Direct Bilirubin AST ALT Alkaline Phosphatase Total Creatine Kinase Troponin I High Sens C-Reactive Protein Total Protein Albumin Lipase Urine Opiates Screen Ur Buprenorphine Scrn Ur Oxycodone Screen Urine Methadone Screen Urine Fentanyl Screen Ur Barbiturates Screen Ur Phencyclidine Scrn Ur Amphetamines Screen U Benzodiazepines Scrn Urine Cocaine Screen U Marijuana (THC) Screen Ethyl Alcohol Influenza Type A (PCR) Influenza Type B (PCR) RSV RNA Qual (PCR) SARS-CoV-2 RNA (RT-PCR) Imaging Radiologist's Impressions: Impressions Chest X-Ray 06/24/24 16:47 IMPRESSION: Unremarkable examination. Abdomen/Pelvis CT 06/24/24 19:07 IMPRESSION: 1. No acute abnormality. 2. Hepatic steatosis unchanged. 3. Borderline splenomegaly unchanged. 4. Mild calcific atherosclerotic disease. 5. Degenerative changes of the spine and hips. Fleischner guidelines were followed. Chest CTA 06/24/24 19:07 IMPRESSION: 1. No evidence for pulmonary embolism. However the exam is suboptimal for evaluation of pulmonary emboli as above and therefore cannot be excluded. 2. Hepatic steatosis. 3. VTE: indeterminate. 4. No evidence for pneumonia Head CT 06/24/24 19:07 IMPRESSION: No acute intracranial pathology. Assessment and Plan (1) Fever: Status: Acute (2) Acute encephalopathy: Status: Acute Plan This is a 44-year-old male with pertinent history of IV drug use disorder, alcohol use disorder, mood disorder who presents to the emergency department for evaluation of fevers and chills. #. SIRS+: Resuscitated with IV crystalloids. Initiating empiric IV antibiotics. CT abdomen/pelvis and chest negative for acute abnormality. UA pending. Concern for bacteremia in a patient with IV drug use. Monitor blood culture. Lactic acid obtained #. Acute encephalopathy: Metabolic in the setting of above + toxic due to drug use #. Polysubstance IV drug use disorder: UDS positive for opiates, fentanyl and cocaine. Monitor for withdrawal. Consulted Addiction Team #. Alcohol use disorder: Initiated phenobarb protocol in the ER. Initiating thiamine and folic acid. Addiction Team as above. Monitor CIWA #. Microcytic anemia: Obtaining iron panel #. Mood disorder: Continue home mood stabilizers Med rec pending DVT prophylaxis: Lovenox Full code Admit as inpatient and will require two night minimum hospital stay for IV antibiotics (as above), which is not possible in a lesser acute setting. Quality Stroke Does the patient have a stroke diagnosis?: No VTE Prior VTE?: No VTE Risk Level:: Medical - moderate - high VTE Device Contraindication: Treatment Not Indicated VTE Drug Contraindication: N/A - Med Ordered
[2024-06-24] MEDS: Enoxaparin Sodium 40 MG/0.4 ML SYRINGE SUBCUT (22:04)
[2024-06-24] MEDS: Thiamine HCL 100 MG in 0.9 % Sodium Chloride 100 ML 202 MG IV (22:05)
[2024-06-24] MEDS: PHENobarbitaL sodium 130 MG/ML VIAL IM Q3Hx2 339 MG IM (22:17)
--- NOTE | 2024-06-24 22:22 | PC.NURSE ---
T103. pt remains on cooling blanket
[2024-06-24 23:27] LABS: Appearance Urine Clear; Color Urine Dark Yellow; Glucose Urine UA Negative (Negative); Leukocyte Esterase Urine Negative (Negative); Nitrite Urine Negative (Negative); PH 8.5 (5.0-9.0); Specific Gravity - Urine 1.015 (1.005-1.025); UMIC TRIGGER UACC YES; Urine Blood Trace (Negative); Urine Ketones Negative (Negative); Urine Protein 30 (1+) mg/dL (Neg-Trace)
[2024-06-24 23:29] LABS: Bacteria Urine None Seen (None Seen); Hyaline Casts Urine 0-2 /LPF (0-2); Squamous Epithelial Cell Urine 0-2 /HPF (0-2); WBC Urine 0-5 /HPF (0-5)
[2024-06-25] VITALS (11 sets, daily range): BP systolic 140–147; BP diastolic 83; PULSE 98; RESP 18–20; TEMP 37.3–39.9; O2SAT 97
[2024-06-25] MEDS: Acetaminophen 1,000 MG/100 ML PIGGYBACK 400 MG IV (00:37)
--- NOTE | 2024-06-25 02:01 | PC.NURSE ---
Patient arrived from ED via stretcher, very drowsy/ lethargic. Resistant to touch/ reposition. Rectal temp 103, Dr Schultz aware. Placed on cooling blanket, IV Tylenol administered. Patient repositioned frequently but favoring right site and immediately changes position to right when lying on back or left site. Safety in place, camera added for extra security.
[2024-06-25] MEDS: vancomycin HCL 1,500 MG in 0.9 % Sodium Chloride 500 ML 333.33 MG IV (05:33)
--- NOTE | 2024-06-25 05:47 | PC.NURSE ---
patient refused AM blood draw. Dr Schultz notified.
[2024-06-25] MEDS: Acetaminophen 325 MG TABLET 650 MG PO ×3 (08:15→21:03)
[2024-06-25] MEDS: 0.9 % Sodium Chloride Flush 3 ML SYRINGE IVFLUSH ×2 (08:16→17:25)
--- NOTE | 2024-06-25 08:34 | HO.PM.IMPN ---
Subjective Subjective Date of Service: 06/25/24 Interval History: f/u on metabolic encephalopathy, fever fevers going down, c/o pain everywhere including back, gram positive cocci inblood Physical Exam Vital Signs: Vital Signs: Last Vital Signs Temp 102.0 F H 06/25/24 08:00 Pulse 98 06/25/24 08:00 Resp 20 06/25/24 08:00 BP 140/83 H 06/25/24 08:00 Pulse Ox 97 06/25/24 08:00 O2 Del Method Room Air 06/25/24 08:00 O2 Flow Rate 2 06/24/24 18:29 BMI result Body Mass Index 27.9 Const: Other: General: AO X 3, no acute distress Resp: CTA bilateral CVS: S1,S2,RRR GI: +BS, NT, no distention Skin: No rash MSK: no spinal tenderness Neuro: motor grossly intact, no focal deficit Psych: appropriate affect Objective Data Active Medications Acetaminophen (Acetaminophen 325 Mg Tablet) 650 mg PO Q6H PRN PRN Reason: Pain, Mild (Pain Scale 1-3), fever or headache Last Admin: 06/25/24 08:15 Dose: 650 mg Documented By: MARLIN Calcium Carbonate (Calcium Carbonate 750 Mg Tab.Chew) 750 mg PO Q4H PRN PRN Reason: Heartburn Enoxaparin Sodium (Enoxaparin Sodium 40 Mg/0.4 Ml Syringe) 40 mg SUBCUT Q24H [facility] Last Admin: 06/24/24 22:04 Dose: 40 mg Documented By: EFRAIN Folic Acid (Folic Acid 1 Mg Tablet) 1 mg PO DAILY [facility] Vancomycin HCl 1,500 mg/ (Sodium Chloride) 500 mls @ 333.333 mls/hr IV Q12H [facility] Last Infusion: 06/25/24 07:31 Dose: Infused Documented By: MARLIN Magnesium Hydroxide (Milk Of Magnesia 30 Ml Oral.Susp) 30 ml PO DAILY PRN PRN Reason: Constipation Melatonin (Melatonin 3 Mg Tablet) 6 mg PO BEDTIME PRN PRN Reason: Insomnia Ondansetron HCl (Ondansetron Hcl 4 Mg/2 Ml Vial) 4 mg IVPUSH Q8H PRN PRN Reason: Nausea and Vomiting Pharmacy Consult (Consult Rx Etoh Phenob Im/Po) 1 each MISCELLANE ONCE PRN; Protocol PRN Reason: Consult order Pharmacy Consult (Consult Rx Vancomycin Dosing) 1 each MISCELLANE DAILY PRN PRN Reason: Consult order Phenobarbital (Phenobarbital 30 Mg Tablet) 60 mg PO BID [facility] Stop: 06/26/24 21:01 Phenobarbital (Phenobarbital 30 Mg Tablet) 30 mg PO BID [facility] Stop: 06/28/24 21:01 Phenobarbital (Phenobarbital 15 Mg Tablet) 15 mg PO DAILY [facility] Stop: 06/30/24 09:01 Sodium Chloride (0.9 % Sodium Chloride Flush 3 Ml Syringe) 3 ml IVFLUSH QSHIFT [facility] Last Admin: 06/25/24 08:16 Dose: 3 ml Documented By: MARLIN Thiamine HCl (Thiamine Hcl 100 Mg Tablet) 100 mg PO DAILY [facility] Labs 06/24/24 14:42 06/24/24 14:42 Labs: Laboratory Results - last 24 hr 06/24/24 06/24/24 06/24/24 14:42 17:00 17:03 MCV 65.2 L MCH 20.7 L MCHC 31.8 RDW 19.4 H Plt Count 331 MPV 10.3 Immature Gran % (Auto) 1.0 H Neut % (Auto) 78.1 H Lymph % (Auto) 9.7 L Harris % (Auto) 10.7 Eos % (Auto) 0.0 Baso % (Auto) 0.5 Lymph # (Auto) 1.5 Harris # (Auto) 1.7 H Eos # (Auto) 0.0 Baso # (Auto) 0.1 Abs Immat Gran (auto) 0.16 H Absolute Neuts (auto) 12.0 H Absolute Nucleated RBC 0.000 Nucleated RBC % (auto) 0.0 Smear Tech's Comments VERIFIED ESR 36 H Hold Purple Top SEE NOTE Hold Blue Top SEE NOTE VBG pH VBG pCO2 VBG pO2 VBG HCO3 VBG O2 Saturation VBG Base Excess Anion Gap 13 Estim Creat Clear Calc 155.7 Estimated GFR > 60 Random Glucose 97 Lactic Acid 1.0 Calcium 8.9 Total Bilirubin 1.5 H Direct Bilirubin 0.7 H AST 95 H ALT 64 H Alkaline Phosphatase 74 Total Creatine Kinase 496 H Troponin I High Sens 4.3 D C-Reactive Protein 6.04 H Total Protein 8.1 H Albumin 3.6 Lipase 12 Urine Color Urine Appearance Urine pH Ur Specific [place] Urine Protein Urine Glucose (UA) Urine Ketones Urine Blood Urine Nitrite Ur Leukocyte Esterase Urine RBC Urine WBC Ur Squamous Epith Cells Urine Bacteria Hyaline Casts Urine Opiates Screen POSITIVE H Ur Buprenorphine Scrn Not Detected Ur Oxycodone Screen Not Detected Urine Methadone Screen Not Detected Urine Fentanyl Screen POSITIVE H Ur Barbiturates Screen Not Detected Ur Phencyclidine Scrn Not Detected Ur Amphetamines Screen Not Detected U Benzodiazepines Scrn Not Detected Urine Cocaine Screen POSITIVE H U Marijuana (THC) Screen Not Detected Ethyl Alcohol 48 Influenza Type A (PCR) NEGATIVE Influenza Type B (PCR) NEGATIVE RSV RNA Qual (PCR) NEGATIVE SARS-CoV-2 RNA (RT-PCR) NEGATIVE 06/24/24 06/24/24 17:12 23:22 MCV MCH MCHC RDW Plt Count MPV Immature Gran % (Auto) Neut % (Auto) Lymph % (Auto) Harris % (Auto) Eos % (Auto) Baso % (Auto) Lymph # (Auto) Harris # (Auto) Eos # (Auto) Baso # (Auto) Abs Immat Gran (auto) Absolute Neuts (auto) Absolute Nucleated RBC Nucleated RBC % (auto) Smear Tech's Comments ESR Hold Purple Top Hold Blue Top VBG pH 7.45 H VBG pCO2 41 VBG pO2 66 VBG HCO3 29 H VBG O2 Saturation 92.0 VBG Base Excess 5.5 Anion Gap Estim Creat Clear Calc Estimated GFR Random Glucose Lactic Acid Calcium Total Bilirubin Direct Bilirubin AST ALT Alkaline Phosphatase Total Creatine Kinase Troponin I High Sens C-Reactive Protein Total Protein Albumin Lipase Urine Color Dark Yellow Urine Appearance Clear Urine pH 8.5 Ur Specific [place] 1.015 Urine Protein 30 (1+) H Urine Glucose (UA) Negative Urine Ketones Negative Urine Blood Trace H Urine Nitrite Negative Ur Leukocyte Esterase Negative Urine RBC 3-5 H Urine WBC 0-5 Ur Squamous Epith Cells 0-2 Urine Bacteria None Seen Hyaline Casts 0-2 Urine Opiates Screen Ur Buprenorphine Scrn Ur Oxycodone Screen Urine Methadone Screen Urine Fentanyl Screen Ur Barbiturates Screen Ur Phencyclidine Scrn Ur Amphetamines Screen U Benzodiazepines Scrn Urine Cocaine Screen U Marijuana (THC) Screen Ethyl Alcohol Influenza Type A (PCR) Influenza Type B (PCR) RSV RNA Qual (PCR) SARS-CoV-2 RNA (RT-PCR) Assessment and Plan (1) Leukocytosis: Status: Acute (2) Acute encephalopathy: Status: Acute (3) Fever: Status: Acute (4) Active substance abuse: Status: Acute Plan 44-year-old male with pertinent history of IV drug use disorder, alcohol use disorder, mood disorder who presents to the emergency department for evaluation of fevers and chills. Sepsis, gram positive cocci bacteremia 2/2 in setting of IVDA -Vanc+Cefepime started 06/24 -echo -ID consult -follow cultures, repeat today -Back MR as c/o some back pain -APAP + Cooling blanket for high fever Acute encephalopathy, d/t above, improving Polysubstance IV drug use disorder : UDS positive for opiates, fentanyl and cocaine -Addiction med consult -Methadone once verified -clonidine, hydroxyzine for withdrawal symptms Alcohol use disorder/dependence, high risk for withdrawal -Phenobarbital, thiamine, folic acd. CIWA Microcytic anemia, chronic likely drom substance use Mood disorder: Continue home mood stabilizers Med rec pending DVT prophylaxis: Lovenox Full code need for inpt: Sepsis, metabolic encephalopathy need further work up He refused lab draws Quality Stroke Does the patient have a stroke diagnosis?: No VTE Prior VTE?: No VTE Risk Level:: Medical - moderate - high VTE Device Contraindication: Treatment Not Indicated VTE Drug Contraindication: N/A - Med Ordered
--- NOTE | 2024-06-25 10:17 | MHC.RECOVRN ---
T/W received referral for addiction consult for pt. Upon receiving report from his nurse Lisa Vences it was noted that pt. is still quite sick and does not wish to be disturbed. T/W will check in tomorrow. Lisa in agreement with the plan.
[2024-06-25] MEDS: Thiamine HCL 100 MG TABLET PO (10:25)
[2024-06-25] MEDS: PHENobarbitaL 30 MG TABLET 60 MG PO ×2 (10:25→21:04)
[2024-06-25] MEDS: Folic Acid 1 MG TABLET PO (10:25)
--- NOTE | 2024-06-25 10:39 | PHA.MEDREC ---
Pharmacy Consult ? Medication Reconciliation Pharmacy has completed the medication reconciliation. Pt not willing to engage in MR interview, but mentions they only take gabepentin and methadone. States methadone is 30 mg daily, but would not disclose which clinic they go to.
[2024-06-25] MEDS: Gabapentin 400 MG CAPSULE 800 MG PO ×2 (14:48→21:04)
--- NOTE | 2024-06-25 14:53 | MHC.CM.PN ---
Addendum entered by Ashanti Mcwilliams 06/26/24 16:02: CM HAS ATTEMPTED TO MEET WITH PATIENT MULTIPLE TIMES, HOWEVER HE DOES NOT WAKE UP WHEN ADDRESSED VICE PRESIDENT BIOSTATISTICS COMPLETED USING EMR PER EMR, PT IS HOMELESS, HE HAS NO PCP AND NO HCP ON FILE DCP TBD PENDING TREATMENT NEEDS Original Note: CM ATTEMPTED TO MEET WITH PT, HOWEVER HE WAS SLEEPING SOUNDLY CM WILL REVISIT
--- NOTE | 2024-06-25 17:27 | PC.NURSE ---
Pt refusing all care, lab draws. Taking medications with some coaxing and asking for water but refusing to eat. Continues with fevers. Rectal temp via cooling blanket probe. 102.3 highest temp, down to 101.6 after tylenol. Continuous cooling blanket. Unwilling to answer questions. States, just leave me alone. Dr. March aware.
[2024-06-25 18:27] LABS: Vancomycin Random 4.7 mcg/mL (15-20)
[2024-06-26] VITALS (7 sets, daily range): BP systolic 140–158; BP diastolic 70–82; PULSE 67–88; RESP 16–20; TEMP 36.9–38.1; O2SAT 96–99
--- NOTE | 2024-06-26 00:47 | P.CNID_ITS ---
History of Present Illness Data of Consult Service Date: 06/25/24 Requesting physician: Shilo Acevedo Primary Care Provider: Unknown Physician HPI Reason for consult: gram positive bacteremia Apparently he comes in with racing thoughts and fatigue for several days. He is drinking alcohol. He is not talking to me and wants me to go away. He uses IV Fentanyl according to chart. Review of Systems 2 Review of Systems: Yes all other systems are reviewed and are negative [facility] Past Medical History Medical History (Updated 06/26/24 @ 00:50 by Dana Salinas MD) Bacteremia Depression Polysubstance abuse IVDU (intravenous drug user) Alcohol dependence Recurrent major depression-severe PTSD (post-traumatic stress disorder) PTSD (post-traumatic stress disorder) Hep C w/o coma, chronic Family History Family history: reviewed and not pertinent Surgical History Surgical History History of surgery on arm Social History Social History Household Members: None Household Members Other:: unable to obtain information from patient d/t sedation. Housing: Homeless Do you presently have visiting nurse or other home services: No Alcohol intake: current Alcohol intake frequency: 3 or more drinks per day Alcohol type: beer and hard liquor Comment: pt refused bed alarm Patient Tobacco Use Status: Tobacco use Unknown Tobacco use type: Cigarette Cigarette Packs Per Day: 2 Cigarettes Per Day: 40.0 Years Smoked: unknown e-Cigarette/Vaping Use: Currently Using Second Hand Smoke Exposure: No Substance Use Type: Crack/Cocaine and Heroin service: Yes ([employer]) Sexual orientation: Straight/Heterosexual Meds Allergies Allergy/AdvReac Type Severity Reaction Status Date / Time fish derived [FISH] Allergy Unknown UNKNOWN - Verified 06/24/24 13:29 NOT ANAPHYLAXIS PER PATIENT trazodone AdvReac Severe priapr Verified 06/24/24 13:29 Active Medications: Current Medications Acetaminophen (Acetaminophen 325 Mg Tablet) 650 mg PO Q6H PRN PRN Reason: Pain, Mild (Pain Scale 1-3), fever or headache Last Admin: 06/25/24 21:03 Dose: 650 mg Calcium Carbonate (Calcium Carbonate 750 Mg Tab.Chew) 750 mg PO Q4H PRN PRN Reason: Heartburn Clonidine HCl (Clonidine Hcl 0.1 Mg Tablet) 0.1 mg PO TID PRN; Protocol PRN Reason: Opiate Withdrawal Enoxaparin Sodium (Enoxaparin Sodium 40 Mg/0.4 Ml Syringe) 40 mg SUBCUT Q24H [facility] Last Admin: 06/25/24 21:08 Dose: Not Given Folic Acid (Folic Acid 1 Mg Tablet) 1 mg PO DAILY [facility] Last Admin: 06/25/24 10:25 Dose: 1 mg Gabapentin (Gabapentin 400 Mg Capsule) 800 mg PO TID [facility] Last Admin: 06/25/24 21:04 Dose: 800 mg Hydroxyzine HCl (Hydroxyzine Hcl 25 Mg Tablet) 25 mg PO Q6H PRN PRN Reason: anxiety/restlessness Daptomycin 720 mg/ Sodium (Chloride) 64.4 mls @ 100 mls/hr IV Q24H [facility] Last Infusion: 06/25/24 20:41 Dose: Infused Magnesium Hydroxide (Milk Of Magnesia 30 Ml Oral.Susp) 30 ml PO DAILY PRN PRN Reason: Constipation Melatonin (Melatonin 3 Mg Tablet) 6 mg PO BEDTIME PRN PRN Reason: Insomnia Ondansetron HCl (Ondansetron Hcl 4 Mg/2 Ml Vial) 4 mg IVPUSH Q8H PRN PRN Reason: Nausea and Vomiting Pharmacy Consult (Consult Rx Etoh Phenob Im/Po) 1 each MISCELLANE ONCE PRN; Protocol PRN Reason: Consult order Phenobarbital (Phenobarbital 30 Mg Tablet) 60 mg PO BID [facility] Stop: 06/26/24 21:01 Last Admin: 06/25/24 21:04 Dose: 60 mg Phenobarbital (Phenobarbital 30 Mg Tablet) 30 mg PO BID [facility] Stop: 06/28/24 21:01 Phenobarbital (Phenobarbital 15 Mg Tablet) 15 mg PO DAILY [facility] Stop: 06/30/24 09:01 Sodium Chloride (0.9 % Sodium Chloride Flush 3 Ml Syringe) 3 ml IVFLUSH QSHIFT [facility] Last Admin: 06/26/24 00:04 Dose: Not Given Thiamine HCl (Thiamine Hcl 100 Mg Tablet) 100 mg PO DAILY [facility] Last Admin: 06/25/24 10:25 Dose: 100 mg Home Medications ?Medication ?Instructions ?Recorded ?Confirmed ?Last Taken ?Type gabapentin 800 mg tablet 800 mg PO TID 06/24/24 06/25/24 Unknown History methadone 10 mg/mL oral 30 mg PO DAILY 06/25/24 Unknown History concentrate (Methadose) Physical Exam 2 Vital Signs: Vital Signs: Last Vital Signs Temp 100.5 F H 06/26/24 00:00 Pulse 98 06/25/24 16:53 Resp 18 06/25/24 16:53 BP 147/83 H 06/25/24 16:53 Pulse Ox 97 06/25/24 16:53 O2 Del Method Room Air 06/25/24 16:53 O2 Flow Rate 2 06/24/24 18:29 BMI result Body Mass Index 27.9 Const: Other: not cooperative General: poor hygiene HEENT: Head: Yes normal to inspection Face and sinus: Yes normal facial exam Mouth: Normal oral and palatal mucosa present Teeth and gingiva: d entition normal Eyes: General: appearance normal, both eyes and all related structures P upils: Equal, round and reactive pupils present Resp: Effort & Inspection: normal respiratory effort Cardio: Other: 1/2 ADRIANA Rate: regular rate Rhythm: regular rhythm GI: Palpation (GI): Soft to palpation and nontender : General: Yes no CVA tenderness Back/Spine/Pelvis: Back: no CVA tenderness Skin: Other: small right ankle scab Neuro: General: moves all extremities Cranial nerves: Yes Equal, round and reactive pupils present Extrem: General: Yes normal to inspection Psych: Appearance: grossly normal Results Labs 06/24/24 14:42 06/24/24 14:42 Microbiology Microbiology Results: Microbiology 06/24/24 17:17 Blood - Venous Blood Culture - Preliminary Prelim: GPC Gram Stain only 06/24/24 17:03 Blood - Venous Blood Culture - Preliminary Prelim: GPC Gram Stain only Assessment and Plan (1) Leukocytosis: Status: Acute (2) Fever: Status: Acute (3) Bacteremia: Status: Acute Plan He refuses Vancomycin blood draws so Daptomycin appropriate. No source,possible skin source. Would continue Daptomycin. Await final cultures. Check echo if not done. Await HIV test.
[2024-06-26 01:01] LABS: Anion Gap 21 (12-20); Blood Urea Nitrogen 7 mg/dL (9-16); Calcium 8.7 mg/dL (8.4-10.2); Carbon Dioxide 16 mmol/L (22-29); Chloride 100 mmol/L (96-108); Creatinine Clr Calc Pharmacy 179.1; Estimated Glomerular Filt Rate > 60; Glucose Random 88 mg/dL (60-115); Iron 33 mcg/dL (45-160); Percent Iron Saturation 18 % (15-50); Potassium 4.8 mmol/L (3.3-5.1); Sodium 132 mmol/L (135-145); Total Iron Binding Capacity 183 mcg/dL (228-428); Unsaturated Iron Binding 150 ug/dL
[2024-06-26] MEDS: Acetaminophen 1,000 MG/100 ML PIGGYBACK 400 MG IV (01:47)
[2024-06-26 04:09] LABS: HIV Num 1 5.23 S/CO (0.00-0.99)
[2024-06-26 05:05] LABS: HIV AB/AG Nonreactive (Nonreactive); HIV Num 2 0.06 S/CO; HIV Num 3 0.06 S/CO
[2024-06-26] MEDS: Acetaminophen 325 MG TABLET 650 MG PO (09:13)
[2024-06-26] MEDS: PHENobarbitaL 30 MG TABLET 60 MG PO ×2 (09:13→21:07)
[2024-06-26] MEDS: cloNIDine HCL 0.1 MG TABLET PO (09:13)
[2024-06-26] MEDS: Folic Acid 1 MG TABLET PO (09:14)
[2024-06-26] MEDS: Gabapentin 400 MG CAPSULE 800 MG PO ×3 (09:14→21:07)
[2024-06-26] MEDS: Thiamine HCL 100 MG TABLET PO (09:14)
[2024-06-26] MEDS: 0.9 % Sodium Chloride Flush 3 ML SYRINGE IVFLUSH ×2 (09:41→14:31)
--- NOTE | 2024-06-26 11:53 | MHC.RECOVRN ---
Attempted visit with pt. following eval received for alcohol and IVDU. Pt to lethargic to answer questions. Report with floor nurse Lisa Olvera and she will continue to medicate with comfort meds and we will attempt re assess once pt more alert.
--- NOTE | 2024-06-26 12:50 | HO.PM.IMPN ---
Subjective Subjective Date of Service: 06/26/24 Interval History: c/o malaise + low back pain; febrile to 100.5 overnight Review of Systems Review of Systems: Yes all other systems are reviewed and are negative Physical Exam Vital Signs: Vital Signs: Last Vital Signs Temp 98.6 F 06/26/24 07:35 Pulse 88 06/26/24 07:35 Resp 18 06/26/24 07:35 BP 150/79 H 06/26/24 07:35 Pulse Ox 98 06/26/24 07:35 O2 Del Method Room Air 06/26/24 07:35 O2 Flow Rate 2 06/24/24 18:29 BMI result Body Mass Index 27.9 Gen: disheveled HEENT: sclera anicteric, moist mucus membranes Neck: supple Lungs: clear to auscultation bilaterally Heart: regular rate and rhythm, no murmurs Abd: soft, non-tender, non-distended Back: midline lumbar tenderness Ext: no edema Skin: warm/well-perfused Neuro: alert and oriented x3, no focal findings Psych: restricted affect Objective Data Active Medications Acetaminophen (Acetaminophen 325 Mg Tablet) 650 mg PO Q6H PRN PRN Reason: Pain, Mild (Pain Scale 1-3), fever or headache Last Admin: 06/26/24 09:13 Dose: 650 mg Documented By: MARLIN Calcium Carbonate (Calcium Carbonate 750 Mg Tab.Chew) 750 mg PO Q4H PRN PRN Reason: Heartburn Clonidine HCl (Clonidine Hcl 0.1 Mg Tablet) 0.1 mg PO TID PRN; Protocol PRN Reason: Opiate Withdrawal Last Admin: 06/26/24 09:13 Dose: 0.1 mg Documented By: MARLIN Enoxaparin Sodium (Enoxaparin Sodium 40 Mg/0.4 Ml Syringe) 40 mg SUBCUT Q24H [facility] Last Admin: 06/25/24 21:08 Dose: Not Given Documented By: JERMAINE Non-Admin Reason: Patient Refused Folic Acid (Folic Acid 1 Mg Tablet) 1 mg PO DAILY [facility] Last Admin: 06/26/24 09:14 Dose: 1 mg Documented By: MARLIN Gabapentin (Gabapentin 400 Mg Capsule) 800 mg PO TID [facility] Last Admin: 06/26/24 09:14 Dose: 800 mg Documented By: MARLIN Hydroxyzine HCl (Hydroxyzine Hcl 25 Mg Tablet) 25 mg PO Q6H PRN PRN Reason: anxiety/restlessness Daptomycin 720 mg/ Sodium (Chloride) 64.4 mls @ 100 mls/hr IV Q24H [facility] Last Infusion: 06/25/24 20:41 Dose: Infused Documented By: JERMAINE Magnesium Hydroxide (Milk Of Magnesia 30 Ml Oral.Susp) 30 ml PO DAILY PRN PRN Reason: Constipation Melatonin (Melatonin 3 Mg Tablet) 6 mg PO BEDTIME PRN PRN Reason: Insomnia Ondansetron HCl (Ondansetron Hcl 4 Mg/2 Ml Vial) 4 mg IVPUSH Q8H PRN PRN Reason: Nausea and Vomiting Pharmacy Consult (Consult Rx Etoh Phenob Im/Po) 1 each MISCELLANE ONCE PRN; Protocol PRN Reason: Consult order Phenobarbital (Phenobarbital 30 Mg Tablet) 60 mg PO BID [facility] Stop: 06/26/24 21:01 Last Admin: 06/26/24 09:13 Dose: 60 mg Documented By: MARLIN Phenobarbital (Phenobarbital 30 Mg Tablet) 30 mg PO BID [facility] Stop: 06/28/24 21:01 Phenobarbital (Phenobarbital 15 Mg Tablet) 15 mg PO DAILY [facility] Stop: 06/30/24 09:01 Sodium Chloride (0.9 % Sodium Chloride Flush 3 Ml Syringe) 3 ml IVFLUSH QSHIFT [facility] Last Admin: 06/26/24 09:41 Dose: 3 ml Documented By: MARLIN Thiamine HCl (Thiamine Hcl 100 Mg Tablet) 100 mg PO DAILY [facility] Last Admin: 06/26/24 09:14 Dose: 100 mg Documented By: MARLIN Labs 06/24/24 14:42 06/25/24 17:50 Labs: Laboratory Results - last 24 hr 06/24/24 06/25/24 19:40 17:50 Anion Gap 21 H Estim Creat Clear Calc 179.1 Estimated GFR > 60 Random Glucose 88 Calcium 8.7 Iron 33 L TIBC 183 L % Saturation 18 Unsat Iron Binding 150 Random Vancomycin 4.7 L HIV 1&2 Ab/P24 Ag 4thGn Nonreactive Microbiology Microbiology Results: Microbiology 06/24/24 17:03 Blood Culture - Preliminary Blood - Venous Staphylococcus aureus 06/24/24 17:17 Blood Culture - Preliminary Blood - Venous Staphylococcus aureus Assessment and Plan (1) Leukocytosis: Status: Acute (2) Acute encephalopathy: Status: Acute (3) Fever: Status: Acute (4) Active substance abuse: Status: Acute Plan d3 44yo M with IDU, AUD, mood disorder presenting with fever + chills and found to have staphylococcal bacteremia sepsis due to Staph aureus bacteremia - vanc + cefepime 06/24-06/25, then dapto 06/25- - TTE pending, repeat BCx 06/27 - ID consulted + following - MRI L-spine pending polysubstance abuse [fentanyl, cocaine] - Addiction Medicine consult, clonidine, hydroxyzine, screen HBV/HCV [HIV negative] AUD - phenobarbital taper, thiamine, folic acid KRISTINA - replete Fe once infection under control VTE ppx - enoxaparin dispo - will likely need STR for long-term IV ABX In my clinical judgment, the patient requires continued inpatient hospitalization for the following reasons: IV ABX Total time managing care of this patient today: 35 minutes. Quality Stroke Does the patient have a stroke diagnosis?: No VTE Prior VTE?: No VTE Risk Level:: Medical - moderate - high VTE Device Contraindication: Treatment Not Indicated VTE Drug Contraindication: N/A - Med Ordered
[2024-06-26] MEDS: hydrOXYzine HCL 25 MG TABLET PO (15:36)
[2024-06-26] MEDS: methADONE HCl 20 MG/2 ML ORAL.CONC PO (16:33)
[2024-06-26] MEDS: Enoxaparin Sodium 40 MG/0.4 ML SYRINGE SUBCUT (21:07)
[2024-06-27] MEDS: cloNIDine HCL 0.1 MG TABLET PO ×2 (02:49→12:14)
[2024-06-27] MEDS: hydrOXYzine HCL 25 MG TABLET PO ×2 (02:49→12:14)
[2024-06-27 02:53] VITALS: BP 158/68
[2024-06-27 03:00] VITALS: BP 158/70; PULSE 60; RESP 17; TEMP 36.9; O2SAT 100
--- NOTE | 2024-06-27 07:00 | CA_ITS ---
Transthoracic Echocardiogram Patient (Last, First, Middle): Mark Mays, Gender: Male Date of : 1980 Age: 44 Procedure Date: 06/27/2024 Procedure Type: Transthoracic Echocardiogram Location: S3E Height: 180.34 cm Weight: 90.72 kg BSA: 2.11 m2 Heart Rate: 58 bpm BP: 158 / 70 mmHg [place] Cleaner: XU Referring MD: Shilo March MD Symptoms: bacteremia Study Quality: Adequate ECG Rhythm: Bradycardia Conclusions: - The left ventricular systolic function is low normal. The visually estimated ejection fraction is between 50-55%. - The mid inferior and mid inferolateral segments are hypokinetic. The basal inferior segment is akinetic. - No obvious valvular pathology seen on this study. Findings Left Ventricle Normal left ventricular cavity size. There is normal left ventricular wall thickness. The left ventricular systolic function is low normal. The visually estimated ejection fraction is between 50-55%. There is evidence of regional wall motion abnormalities. Diastolic function is normal for age. Wall Motion Rest Echo Findings The mid inferior and mid inferolateral segments are hypokinetic. The basal inferior segment is akinetic. Right Ventricle Mildly increased right ventricular cavity size. There is normal right ventricular systolic function. Atria Both atria are normal in size. Aortic Valve There is a normal trileaflet aortic valve. There is no aortic valve stenosis. There is trace (trivial) aortic valve regurgitation. Mitral Valve The mitral valve appears normal. There is trace mitral valve regurgitation. There is no mitral valve stenosis. Pulmonic Valve The pulmonic valve is likely normal. Tricuspid Valve Normal tricuspid valve structure. There is trace tricuspid valve regurgitation. Tricuspid regurgitation envelope is inadequate for calculation of right ventricular systolic pressure. Great Vessels The asc aorta is normal in size. Venous The inferior vena cava was not well visualized. Pericardium/Pleural There is no evidence of pericardial effusion. Prior Study Comparison No prior study available for comparison. (patient un-co operative during study) Recommendations, Care & Conclusions No obvious valvular pathology seen on this study. Measurements 2D Linear Measurements IVSd: 0.67 0.6-0.9/0.6-1.0 cm LVIDd: 5.59 3.9-5.3/4.2-5.9 cm LVIDd Index: 2.65 2.4-3.2/2.2-3.1 cm/m2 LVIDs: 4.15 2.0-3.6 cm LVPWd: 0.80 0.7-1.1 cm LA Diam: 3.20 2.7-3.8/3.0-4.0 cm LAIDs Index: 1.52 1.5-2.3 cm/m2 LV Mass: 184.93 67-162/88-224 g LV Mass Index: 87.64 43-95/49-115 g/m2 LVOT Diam: 2.20 3.0+(-)1.3 cm 2D Systolic Function EF 4C: 53.60 >55% Mitral Valve MV Pk E: 0.89 MV PK A: 0.51 MV Decel Time: 222.00 E/A: 1.70 E'Lateral: 9.90 E'Medial: 6.85 E/E' Med: 13.00 E/E' Lat: 9.00 PHT: 65.00 MVA PHT: 3.38 Decel [place]: 3.99 Aortic Valve AoV Pk Hernandez: 1.61 AoV Pk Grad: 10.00 DIANE: 3.44 LVOT LVOT Pk Hernandez: 1.51 LVOT Mn Hernandez: 0.92 LVOT VTI: 0.25 LVOT Pk Grad: 9.00 LVOT Mn Grad: 4.00 LVOT Diam: 2.20 LVOT Area: 3.80 Diastolic Function MV Pk E: 0.89 MV Pk A: 0.51 E/A: 1.70 E'Medial: 6.85 E/E' Med: 13.00 E' Laterial: 9.90 E/E' Lat: 9.00 Right Ventricle TAPSE (mm): 30.00 TVS' Hernandez: 21.00 Tricuspid Valve TR Pk Hernandez: 2.42 TR Pk Grad: 23.00 Great Vessels Aorta Sinus of Valsalva: 2.90 2.0-3.5 cm Ao Asc: 3.30 2.1-3.4 cm Pulmonary Veins Pulm Vein S/D 0.90 Pulmonary Valve PV Pk Hernandez: 1.14 Peak PV Grad: 5.00 Updated in Other Vendor System with Status of Final Michael Hernandez MD electronically signed on 06/27/2024 10:33:37 AM with status of Final
[2024-06-27 07:39] LABS: Hematocrit 32.2 % (42.0-52.0); Hemoglobin 10.2 g/dl (14.0-18.0); Mean Corpuscular HGB Conc 31.7 g/dl (31.0-36.0); Mean Corpuscular Hemoglobin 20.4 pg (27.0-33.0); Platelet Count 366 X10*3/uL (160-400); Red Cell Distribution Width 19.1 % (11.0-16.0); White Blood Count 10.2 X10*3/uL (4.8-10.8)
[2024-06-27 07:44] LABS: Mean Corpuscular Volume 64.4 fL (80.0-98.0)
[2024-06-27 08:00] VITALS: BP 135/73; PULSE 75; RESP 18; TEMP 36.2; O2SAT 97
[2024-06-27 08:17] LABS: Alanine Aminotransferase 37 U/L (0-40); Albumin Level 3.2 g/dL (3.5-5.0); Alkaline Phosphatase 65 U/L (39-117); Aspartate Amino Transferase 51 U/L (5-37); Bilirubin Total 0.8 mg/dL (0.0-1.0); Blood Urea Nitrogen 7 mg/dL (9-16); Calcium 8.3 mg/dL (8.4-10.2); Creatinine Clr Calc Pharmacy 185.3; Estimated Glomerular Filt Rate > 60; Glucose Random 96 mg/dL (60-115); Magnesium 2.3 mg/dL (1.6-2.6); Total Protein 7.8 g/dL (6.5-8.0)
[2024-06-27 08:30] LABS: HBS Num1 63.09 mIU/mL (0-7.99); HBc Num1 4.85 S/CO (0.00-0.79); HBsAGNum1 0.24 S/CO (0.00-0.99); Hepatitis B Surface Antigen Negative (Negative); ~HepC Num1 16.49 S/CO (0.00-0.79); ~Hepatitis B Surface Antibody REACTIVE (Nonreactive); ~Hepatitis C Antibody Reactive (Nonreactive)
[2024-06-27 08:36] LABS: Anion Gap 17 (12-20); Carbon Dioxide 20 mmol/L (22-29); Chloride 99 mmol/L (96-108); Potassium 3.4 mmol/L (3.3-5.1); Sodium 133 mmol/L (135-145)
[2024-06-27] MEDS: Gabapentin 400 MG CAPSULE 800 MG PO ×3 (08:52→20:48)
[2024-06-27] MEDS: Thiamine HCL 100 MG TABLET PO (08:52)
[2024-06-27] MEDS: Folic Acid 1 MG TABLET PO (08:53)
[2024-06-27] MEDS: PHENobarbitaL 30 MG TABLET PO ×2 (08:53→20:48)
[2024-06-27] MEDS: 0.9 % Sodium Chloride Flush 3 ML SYRINGE IVFLUSH ×3 (08:56→19:16)
[2024-06-27 09:17] LABS: HBc Num2 3.99 S/CO; Hepatitis B Core Antibody Reactive (Nonreactive)
[2024-06-27] MEDS: methADONE HCl 20 MG/2 ML ORAL.CONC 30 MG PO (09:18)
--- NOTE | 2024-06-27 09:54 | P.PNIM_ITS ---
Subjective Subjective Date of Service: 06/27/24 Interval History: afebrile since midnight 06/26 c/o back pain c/o shakiness, opioid withdrawal; got 20 mg methadone in evening yesterday Review of Systems Review of Systems: Yes all other systems are reviewed and are negative Physical Exam 2 Vital Signs: Vital Signs: Last Vital Signs Temp 97.2 F 06/27/24 08:00 Pulse 75 06/27/24 08:00 Resp 18 06/27/24 08:00 BP 135/73 06/27/24 08:00 Pulse Ox 97 06/27/24 08:00 O2 Del Method Room Air 06/27/24 08:00 O2 Flow Rate 2 06/24/24 18:29 BMI result Body Mass Index 27.9 Gen: disheveled HEENT: sclera anicteric, moist mucus membranes Neck: supple Lungs: clear to auscultation bilaterally Heart: regular rate and rhythm, no murmurs Abd: soft, non-tender, non-distended Back: midline lumbar tenderness Ext: no edema Skin: warm/well-perfused Neuro: alert and oriented x3, no focal findings Psych: restricted affect Objective Data Active Medications Acetaminophen (Acetaminophen 325 Mg Tablet) 650 mg PO Q6H PRN PRN Reason: Pain, Mild (Pain Scale 1-3), fever or headache Last Admin: 06/26/24 09:13 Dose: 650 mg Documented By: MARLIN Calcium Carbonate (Calcium Carbonate 750 Mg Tab.Chew) 750 mg PO Q4H PRN PRN Reason: Heartburn Clonidine HCl (Clonidine Hcl 0.1 Mg Tablet) 0.1 mg PO TID PRN; Protocol PRN Reason: Opiate Withdrawal Last Admin: 06/27/24 02:49 Dose: 0.1 mg Documented By: JERMAINE Enoxaparin Sodium (Enoxaparin Sodium 40 Mg/0.4 Ml Syringe) 40 mg SUBCUT Q24H [facility] Last Admin: 06/26/24 21:07 Dose: 40 mg Documented By: JERMAINE Folic Acid (Folic Acid 1 Mg Tablet) 1 mg PO DAILY [facility] Last Admin: 06/27/24 08:53 Dose: 1 mg Documented By: SD Gabapentin (Gabapentin 400 Mg Capsule) 800 mg PO TID [facility] Last Admin: 06/27/24 08:52 Dose: 800 mg Documented By: SD Hydroxyzine HCl (Hydroxyzine Hcl 25 Mg Tablet) 25 mg PO Q6H PRN PRN Reason: anxiety/restlessness Last Admin: 06/27/24 02:49 Dose: 25 mg Documented By: JERMAINE Daptomycin 720 mg/ Sodium (Chloride) 64.4 mls @ 100 mls/hr IV Q24H [facility] [place] Last Infusion: 06/26/24 19:31 Dose: Infused Documented By: JERMAINE Magnesium Hydroxide (Milk Of Magnesia 30 Ml Oral.Susp) 30 ml PO DAILY PRN PRN Reason: Constipation Melatonin (Melatonin 3 Mg Tablet) 6 mg PO BEDTIME PRN PRN Reason: Insomnia Ondansetron HCl (Ondansetron Hcl 4 Mg/2 Ml Vial) 4 mg IVPUSH Q8H PRN PRN Reason: Nausea and Vomiting Pharmacy Consult (Consult Rx Etoh Phenob Im/Po) 1 each MISCELLANE ONCE PRN; Protocol PRN Reason: Consult order Phenobarbital (Phenobarbital 30 Mg Tablet) 30 mg PO BID [facility] Stop: 06/28/24 21:01 Last Admin: 06/27/24 08:53 Dose: 30 mg Documented By: SD Phenobarbital (Phenobarbital 15 Mg Tablet) 15 mg PO DAILY [facility] Stop: 06/30/24 09:01 Sodium Chloride (0.9 % Sodium Chloride Flush 3 Ml Syringe) 3 ml IVFLUSH QSHIFT [facility] Last Admin: 06/27/24 08:56 Dose: 3 ml Documented By: SD Thiamine HCl (Thiamine Hcl 100 Mg Tablet) 100 mg PO DAILY [facility] Last Admin: 06/27/24 08:52 Dose: 100 mg Documented By: SD Labs 06/27/24 05:26 06/27/24 05:26 Labs: Laboratory Results - last 24 hr 06/27/24 05:26 MCV 64.4 L MCH 20.4 L MCHC 31.7 RDW 19.1 H Plt Count 366 MPV 11.0 Absolute Nucleated RBC 0.000 Nucleated RBC % (auto) 0.0 Anion Gap 17 Estim Creat Clear Calc 185.3 Estimated GFR > 60 Random Glucose 96 Calcium 8.3 L Magnesium 2.3 Total Bilirubin 0.8 AST 51 H ALT 37 Alkaline Phosphatase 65 Total Protein 7.8 Albumin 3.2 L Hep Bs Antigen Negative Hep Bs Antibody REACTIVE Hep B Core Total Ab Reactive Hep B Core IgM Ab Cancelled Hepatitis C Ab (EIA) Reactive H Microbiology Microbiology Results: Microbiology 06/24/24 17:03 Blood Culture - Preliminary Blood - Venous Staphylococcus aureus 06/24/24 17:17 Blood Culture - Preliminary Blood - Venous Staphylococcus aureus Assessment and Plan (1) Leukocytosis: Status: Acute (2) Acute encephalopathy: Status: Acute (3) Fever: Status: Acute (4) Active substance abuse: Status: Acute Plan d4 44yo M with IDU, AUD, mood disorder presenting with fever + chills and found to have staphylococcal bacteremia sepsis due to Staph aureus bacteremia - vanc + cefepime 06/24-06/25, then dapto 06/25- [as pt had refused vanco trough monitoring] - TTE pending, repeat BCx 06/27 to ensure clearance, PICC once clear [06/29 at earliest] - ID consulted + following - MRI L-spine pending polysubstance abuse [fentanyl, cocaine] - will give 30 mg methadone once today pending Addiction Medicine consult - prn clonidine, hydroxyzine - HBV immune from prior infection - HCV Ab+, viral load pending - HIV negative AUD - continue phenobarbital taper, thiamine, folic acid KRISTINA - replete Fe once infection under control VTE ppx - enoxaparin dispo - will need STR for long-term IV ABX In my clinical judgment, the patient requires continued inpatient hospitalization for the following reasons: IV ABX Total time managing care of this patient today: 35 minutes. Quality Stroke Does the patient have a stroke diagnosis?: No VTE Prior VTE?: No VTE Risk Level:: Medical - moderate - high VTE Device Contraindication: Treatment Not Indicated VTE Drug Contraindication: N/A - Med Ordered
--- NOTE | 2024-06-27 11:31 | HO.ADDICT_ITS ---
History of Present Illness Date of Service: 06/27/2024 Chief Complaint: Fever and chills Reason for Consult: OUD-withdrawal HPI Narrative: Patient medically admitted with bacteremia/sepsis reproting opiate withdrawal was administered methadone earlier in the morning --some effect Seen in room 358. Awake, but reporting discomfort and withdrawal sx. Stating his stomach is cramping and having restlessness. reports he was recently in treatment for OUD and was engaged with [facility]. Would like to resume methadone treatment and continue at time of discharge. employment adjudicator called [facility] and verified that [facility] methadone dosing 75mg from 03/29-04/11 [facility] dose increased to 80mg on 04/12. Last dose 05/29 80mg. Past Psychiatric History: Multiple IPLOC, other substance use treatment interventions. Review of Systems Constitutional: Reports as per HPI Diagnostics Vital Signs (24Hr): Vital Signs - 24 hr 06/26/24 15:24 06/26/24 19:50 06/26/24 23:53 Temperature 98.4 F 98.4 F 98.8 F Pulse Rate 68 75 67 Respiratory Rate 18 18 16 Blood Pressure 147/70 H 158/76 H 157/82 H Pulse Oximetry 96 99 97 Oxygen Delivery Method Room Air Room Air Room Air 06/27/24 02:53 06/27/24 03:00 06/27/24 08:00 Temperature 98.5 F 97.2 F Pulse Rate 60 75 Respiratory Rate 17 18 Blood Pressure 158/68 H 158/70 H 135/73 Pulse Oximetry 100 97 Oxygen Delivery Method Room Air Room Air BMI result Body Mass Index 27.9 Labs 06/27/24 05:26 06/27/24 05:26 Labs: Laboratory Results - last 48 hr 06/24/24 06/25/24 06/27/24 19:40 17:50 05:26 WBC 10.2 RBC 5.00 Hgb 10.2 L Hct 32.2 L MCV 64.4 L MCH 20.4 L MCHC 31.7 RDW 19.1 H Plt Count 366 MPV 11.0 Absolute Nucleated RBC 0.000 Nucleated RBC % (auto) 0.0 Sodium 132 L 133 L Potassium 4.8 3.4 D Chloride 100 99 Carbon Dioxide 16 L 20 L Anion Gap 21 H 17 BUN 7 L 7 L Creatinine 0.60 0.58 Estim Creat Clear Calc 179.1 185.3 Estimated GFR > 60 > 60 Random Glucose 88 96 Calcium 8.7 8.3 L Magnesium 2.3 Iron 33 L TIBC 183 L % Saturation 18 Unsat Iron Binding 150 Total Bilirubin 0.8 AST 51 H ALT 37 Alkaline Phosphatase 65 Total Protein 7.8 Albumin 3.2 L Random Vancomycin 4.7 L Hep Bs Antigen Negative Hep Bs Antibody REACTIVE Hep B Core Total Ab Reactive Hep B Core IgM Ab Cancelled Hepatitis C Ab (EIA) Reactive H HIV 1&2 Ab/P24 Ag 4thGn Nonreactive Imaging Radiology Impressions: ITS Impressions Chest X-Ray 06/24/24 16:47 IMPRESSION: Unremarkable examination. Abdomen/Pelvis CT 06/24/24 19:07 IMPRESSION: 1. No acute abnormality. 2. Hepatic steatosis unchanged. 3. Borderline splenomegaly unchanged. 4. Mild calcific atherosclerotic disease. 5. Degenerative changes of the spine and hips. Fleischner guidelines were followed. Chest CTA 06/24/24 19:07 IMPRESSION: 1. No evidence for pulmonary embolism. However the exam is suboptimal for evaluation of pulmonary emboli as above and therefore cannot be excluded. 2. Hepatic steatosis. 3. VTE: indeterminate. 4. No evidence for pneumonia Head CT 06/24/24 19:07 IMPRESSION: No acute intracranial pathology. Mental Status Exam Mental Status Exam Patient Appearance: Unkempt Level of Consciousness: Awake and Appropriate Patient Behavior: Appropriate Mood Description: Anxious Medications Medications Current Medications Acetaminophen (Acetaminophen 325 Mg Tablet) 650 mg PO Q6H PRN PRN Reason: Pain, Mild (Pain Scale 1-3), fever or headache Last Admin: 06/26/24 09:13 Dose: 650 mg Calcium Carbonate (Calcium Carbonate 750 Mg Tab.Chew) 750 mg PO Q4H PRN PRN Reason: Heartburn Clonidine HCl (Clonidine Hcl 0.1 Mg Tablet) 0.1 mg PO TID PRN; Protocol PRN Reason: Opiate Withdrawal Last Admin: 06/27/24 02:49 Dose: 0.1 mg Enoxaparin Sodium (Enoxaparin Sodium 40 Mg/0.4 Ml Syringe) 40 mg SUBCUT Q24H [facility] Last Admin: 06/26/24 21:07 Dose: 40 mg Folic Acid (Folic Acid 1 Mg Tablet) 1 mg PO DAILY [facility] Last Admin: 06/27/24 08:53 Dose: 1 mg Gabapentin (Gabapentin 400 Mg Capsule) 800 mg PO TID [facility] Last Admin: 06/27/24 08:52 Dose: 800 mg Hydroxyzine HCl (Hydroxyzine Hcl 25 Mg Tablet) 25 mg PO Q6H PRN PRN Reason: anxiety/restlessness Last Admin: 06/27/24 02:49 Dose: 25 mg Daptomycin 720 mg/ Sodium (Chloride) 64.4 mls @ 100 mls/hr IV Q24H [facility] Last Infusion: 06/26/24 19:31 Dose: Infused Magnesium Hydroxide (Milk Of Magnesia 30 Ml Oral.Susp) 30 ml PO DAILY PRN PRN Reason: Constipation Melatonin (Melatonin 3 Mg Tablet) 6 mg PO BEDTIME PRN PRN Reason: Insomnia Nicotine Polacrilex (Nicotine Polacrilex 2 Mg Gum) 2 mg BUCCAL Q1H PRN PRN Reason: Nicotine Cravings Ondansetron HCl (Ondansetron Hcl 4 Mg/2 Ml Vial) 4 mg IVPUSH Q8H PRN PRN Reason: Nausea and Vomiting Pharmacy Consult (Consult Rx Etoh Phenob Im/Po) 1 each MISCELLANE ONCE PRN; Protocol PRN Reason: Consult order Phenobarbital (Phenobarbital 30 Mg Tablet) 30 mg PO BID [facility] Stop: 06/28/24 21:01 Last Admin: 06/27/24 08:53 Dose: 30 mg Phenobarbital (Phenobarbital 15 Mg Tablet) 15 mg PO DAILY [facility] Stop: 06/30/24 09:01 Sodium Chloride (0.9 % Sodium Chloride Flush 3 Ml Syringe) 3 ml IVFLUSH QSHIFT [facility] Last Admin: 06/27/24 08:56 Dose: 3 ml Thiamine HCl (Thiamine Hcl 100 Mg Tablet) 100 mg PO DAILY [facility] Last Admin: 06/27/24 08:52 Dose: 100 mg Allergies Allergies Allergy/AdvReac Type Severity Reaction Status Date / Time fish derived [FISH] Allergy Unknown UNKNOWN - Verified 06/24/24 13:29 NOT ANAPHYLAXIS PER PATIENT trazodone AdvReac Severe priapr Verified 06/24/24 13:29 Assessment & Plan Assessment & Plan (1) Opioid use disorder: Status: Acute Code(s): F11.90 - Opioid use, unspecified, uncomplicated Assessment and Plan: * add 10mg methadone today total of 40mg in AM * tomorrow morning 50mg Total time managing care of this patient today ___20_ minutes. [facility] Past Medical History Medical History (Updated 06/26/24 @ 00:50 by Dana Salinas MD) Bacteremia Depression Polysubstance abuse IVDU (intravenous drug user) Alcohol dependence Recurrent major depression-severe PTSD (post-traumatic stress disorder) PTSD (post-traumatic stress disorder) Hep C w/o coma, chronic Family History Family history: reviewed and not pertinent Surgical History Surgical History History of surgery on arm Social History Social History Household Members: None Household Members Other:: unable to obtain information from patient d/t sedation. Housing: Homeless Do you presently have visiting nurse or other home services: No Alcohol intake: current Alcohol intake frequency: 3 or more drinks per day Alcohol type: beer and hard liquor Comment: pt refused bed alarm Patient Tobacco Use Status: Tobacco use Unknown Tobacco use type: Cigarette Cigarette Packs Per Day: 2 Cigarettes Per Day: 40.0 Years Smoked: unknown e-Cigarette/Vaping Use: Currently Using Second Hand Smoke Exposure: No Substance Use Type: Crack/Cocaine and Heroin service: No Sexual orientation: Straight/Heterosexual
[2024-06-27] MEDS: methADONE HCl 20 MG/2 ML ORAL.CONC 10 MG PO (11:41)
[2024-06-27] MEDS: Nicotine Polacrilex 2 MG GUM BUCCAL (11:41)
[2024-06-27 12:00] VITALS: BP 129/79; PULSE 70; RESP 18; TEMP 36.2; O2SAT 100
[2024-06-27] MEDS: Acetaminophen 325 MG TABLET 650 MG PO (12:14)
--- NOTE | 2024-06-27 14:27 | HO.WOUND ---
Wound Consult: Initial 44yr old? male admitted to [facility] on 06/24/24 - See progress notes and H&P for detailed history.? Wound consult placed for Right knee and Right Heel wounds.? Patient agreeable to assessment and photo documentation.? Patient reports knee injury from a fall and the heel he is unsure but reports he has ill fitting shoes and noted blisters in the past to the area. The patient reports he is homeless and has limited resources. Patient educated regarding [facility] - he reports understanding of the community programs but is unsure he would use them at this time. Patient will benefit from wound follow up at an outpatient wound clinic or [facility] mobile wound van. He reports understand standing. Right Medial Heel Etiology: ?Abrasion suspect related to friction Wound Bed: dried adherent scab dried drainage noted - needs moisture Drainage / Odor: sanguineous dried to wound and edges - the patient reports new bleeding and cracking when walking Edges: ? irregular [place] wound: intact no erythema noted - ? No Induration, Fluctuance or Warmth noted Pain: reports tenderness when cleansed Goals of Treatment: ? Moist wound healing and cover Right Knee area Etiology: ??Traumatic Injury / abrasion Measurements: 5cm x 3cm x 0.2cm Wound Bed: dried adherent scab no drainage noted - resurfacing - there is a small open central area that is open dry wound bed - needs moisture Drainage / Odor: None Edges: ? irregular [place] wound: intact no erythema noted - ? No Induration, Fluctuance or Warmth noted Pain: reports tenderness when cleansed Goals of Treatment: ? Moist wound healing and cover - patient reports he is often scratching at the area Recommendations: 1. Turn and Reposition every 2 hours and as needed for patient comfort.? Use pillows or wedges to support off loading positions. 2. Off Load all bony prominences with use of pillows and heel boots if needed.? Apply Preventative foams where needed. ? 3. Monitor for incontinence and moisture control, use barrier creams when needed for prevention and treatment. 4. Provide adequate and supplemental nutrition.? 5. Order or Continue low air loss mattress. 6. When applicable maintain blood glucose levels per Providers order. 7. Right Heel and Knee - Cleanse with NS moist gauze. Apply skin prep to the periwound. Apply wound gel to the wound bed cover with foam dressing and change every 3 days. Re-consult wound care Nurse for wound deterioration or wound changes.
[2024-06-27 15:04] VITALS: BP 126/71; PULSE 63; RESP 18; TEMP 37; O2SAT 97
--- NOTE | 2024-06-27 16:00 | MHC.CM.PN ---
per rounds pt needs a picc and will require [facility]entiary antibiotics referral; to [facility]
[2024-06-27] MEDS: PHENobarbitaL sodium 130 MG/ML VIAL IM (18:11)
[2024-06-27 19:19] VITALS: BP 137/76; PULSE 80; RESP 18; TEMP 37.4; O2SAT 100
[2024-06-27] MEDS: Enoxaparin Sodium 40 MG/0.4 ML SYRINGE SUBCUT (20:48)
[2024-06-27] MEDS: methADONE HCl 20 MG/2 ML ORAL.CONC 5 MG PO (20:51)
[2024-06-28] VITALS (7 sets, daily range): BP systolic 119–154; BP diastolic 64–94; PULSE 59–73; RESP 18; TEMP 36.3–36.9; O2SAT 92–100
[2024-06-28] MEDS: Gabapentin 400 MG CAPSULE 800 MG PO ×3 (08:16→20:28)
[2024-06-28] MEDS: Folic Acid 1 MG TABLET PO (08:16)
[2024-06-28] MEDS: PHENobarbitaL 30 MG TABLET PO ×2 (08:16→20:28)
[2024-06-28] MEDS: cloNIDine HCL 0.1 MG TABLET PO ×3 (08:17→22:27)
[2024-06-28] MEDS: hydrOXYzine HCL 25 MG TABLET PO ×3 (08:17→22:28)
[2024-06-28] MEDS: methADONE HCl 20 MG/2 ML ORAL.CONC 50 MG PO (08:17)
[2024-06-28] MEDS: Thiamine HCL 100 MG TABLET PO (08:17)
[2024-06-28] MEDS: 0.9 % Sodium Chloride Flush 3 ML SYRINGE IVFLUSH (08:28)
--- NOTE | 2024-06-28 09:33 | HO.PM.IMPN ---
Subjective Subjective Date of Service: 06/28/24 Interval History: f/u on bacteremia, sepsis repeat culture 06/27 positive has some back pain Physical Exam Vital Signs: Vital Signs: Last Vital Signs Temp 98.3 F 06/28/24 07:45 Pulse 73 06/28/24 07:45 Resp 18 06/28/24 07:45 BP 141/64 H 06/28/24 07:45 Pulse Ox 99 06/28/24 07:45 O2 Del Method Room Air 06/28/24 07:45 O2 Flow Rate 2 06/24/24 18:29 BMI result Body Mass Index 27.9 Const: Other: General: AO X 3, no acute distress Resp: CTA bilateral CVS: S1,S2,RRR GI: +BS, NT, no distention Skin: No rash MSK: no back tenderness Neuro: motor grossly intact Psych: appropriate affect Objective Data Active Medications Acetaminophen (Acetaminophen 325 Mg Tablet) 650 mg PO Q6H PRN PRN Reason: Pain, Mild (Pain Scale 1-3), fever or headache Last Admin: 06/27/24 12:14 Dose: 650 mg Documented By: SD Calcium Carbonate (Calcium Carbonate 750 Mg Tab.Chew) 750 mg PO Q4H PRN PRN Reason: Heartburn Clonidine HCl (Clonidine Hcl 0.1 Mg Tablet) 0.1 mg PO TID PRN; Protocol PRN Reason: Opiate Withdrawal Last Admin: 06/28/24 08:17 Dose: 0.1 mg Documented By: SD Enoxaparin Sodium (Enoxaparin Sodium 40 Mg/0.4 Ml Syringe) 40 mg SUBCUT Q24H [facility] Last Admin: 06/27/24 20:48 Dose: 40 mg Documented By: RUSS Folic Acid (Folic Acid 1 Mg Tablet) 1 mg PO DAILY [facility] Last Admin: 06/28/24 08:16 Dose: 1 mg Documented By: SD Gabapentin (Gabapentin 400 Mg Capsule) 800 mg PO TID [facility] Last Admin: 06/28/24 08:16 Dose: 800 mg Documented By: SD Hydroxyzine HCl (Hydroxyzine Hcl 25 Mg Tablet) 25 mg PO Q6H PRN PRN Reason: anxiety/restlessness Last Admin: 06/28/24 08:17 Dose: 25 mg Documented By: SD Daptomycin 720 mg/ Sodium (Chloride) 64.4 mls @ 100 mls/hr IV Q24H [facility] Last Infusion: 06/27/24 19:58 Dose: Infused Documented By: VESNARISGabrielle Magnesium Hydroxide (Milk Of Magnesia 30 Ml Oral.Susp) 30 ml PO DAILY PRN PRN Reason: Constipation Melatonin (Melatonin 3 Mg Tablet) 6 mg PO BEDTIME PRN PRN Reason: Insomnia Methadone HCl (Methadone Hcl 20 Mg/2 Ml Oral.Conc) 50 mg PO DAILY [facility] Last Admin: 06/28/24 08:17 Dose: 50 mg Documented By: SD Co-signed By: SWAPNIL Nicotine (Nicotine 14 Mg Patch.Td24) 14 mg TRANSDERMA DAILY [facility] Nicotine Polacrilex (Nicotine Polacrilex 2 Mg Gum) 2 mg BUCCAL Q1H PRN PRN Reason: Nicotine Cravings Last Admin: 06/27/24 11:41 Dose: 2 mg Documented By: SD Ondansetron HCl (Ondansetron Hcl 4 Mg/2 Ml Vial) 4 mg IVPUSH Q8H PRN PRN Reason: Nausea and Vomiting Pharmacy Consult (Consult Rx Etoh Phenob Im/Po) 1 each MISCELLANE ONCE PRN; Protocol PRN Reason: Consult order Phenobarbital (Phenobarbital 30 Mg Tablet) 30 mg PO BID [facility] Stop: 06/28/24 21:01 Last Admin: 06/28/24 08:16 Dose: 30 mg Documented By: SD Phenobarbital (Phenobarbital 15 Mg Tablet) 15 mg PO DAILY [facility] Stop: 06/30/24 09:01 Sodium Chloride (0.9 % Sodium Chloride Flush 3 Ml Syringe) 3 ml IVFLUSH QSHIFT [facility] Last Admin: 06/28/24 08:28 Dose: 3 ml Documented By: SD Thiamine HCl (Thiamine Hcl 100 Mg Tablet) 100 mg PO DAILY [facility] Last Admin: 06/28/24 08:17 Dose: 100 mg Documented By: SD Labs 06/27/24 05:26 06/27/24 05:26 Microbiology Microbiology Results: Microbiology 06/27/24 09:49 Blood Culture - Preliminary Blood - Venous Prelim: GPC Gram Stain only 06/24/24 17:17 Blood Culture - Final Blood - Venous Staphylococcus aureus 06/24/24 17:03 Blood Culture - Final Blood - Venous Staphylococcus aureus Assessment and Plan (1) Leukocytosis: Status: Acute (2) Acute encephalopathy: Status: Acute (3) Fever: Status: Acute (4) Active substance abuse: Status: Acute Plan D5 44yo M with IDU, AUD, mood disorder presenting with fever + chills and found to have staphylococcal bacteremia sepsis due to Staph aureus bacteremia - vanc + cefepime 06/24-06/25, then dapto 06/25- [as pt had refused vanco trough monitoring] - TTE 06/27 no vegetation, repeat BCx 06/27 +, PICC once clear - ID consulted + following - MRI L-spine pending polysubstance abuse [fentanyl, cocaine] - methadone per addiction med - prn clonidine, hydroxyzine - HBV immune from prior infection - HCV Ab+, viral load pending - HIV negative Alcohol use disorder - continue phenobarbital taper, thiamine, folic acid KRISTINA - replete Fe once infection under control VTE ppx - enoxaparin dispo - will need STR for long-term IV ABX Need for inpt: IV Abx for active bacteremia. Total time managing care of this patient today: 35 minutes. Quality Stroke Does the patient have a stroke diagnosis?: No VTE Prior VTE?: No VTE Risk Level:: Medical - moderate - high VTE Device Contraindication: Treatment Not Indicated VTE Drug Contraindication: N/A - Med Ordered
[2024-06-28] MEDS: Nicotine 14 MG PATCH.TD24 TRANSDERMA (10:39)
--- NOTE | 2024-06-28 13:17 | MHC.RECOVRN ---
Met with pt in 358 to follow up and provide support. Pt laying in bed, eyes closed, wakes to voice. Pt reports
--- NOTE | 2024-06-28 13:19 | MHC.RECOVRN ---
Met with pt in 358 to follow up and provide support. Pt laying in bed, eyes closed, wakes to voice. Pt received 50 mg methadone this morning. Pt reports continued opioid withdrawal symptoms including body aches and inability to sleep. Pt would like to continue methadone titration. Denies other questions or concerns at this time. Discussed with Floresita Barry APRN.
[2024-06-28] MEDS: methADONE HCl 20 MG/2 ML ORAL.CONC 5 MG PO (15:36)
--- NOTE | 2024-06-28 16:40 | P.EN_ITS ---
Event Note Date of Service: 06/28/24 Event Note: Addiction note Seen by vice president residential [employer] this morning reporting challenging night and ongoing withdrawal sx chart reviewed Plan: -increase methadone 60mg QD in AM Time Spent With Patient Time: Total time managing care of this patient today ____ minutes.
--- NOTE | 2024-06-28 22:16 | PC.NURSE ---
spoke with pt is not able to have MRI because no iv access nursing supervisor crack off did try to obtain access and other people. new orders received from .
--- NOTE | 2024-06-28 22:20 | PC.NURSE ---
ot not able to get daptomycin iv d/t no iv access aware
[2024-06-28] MEDS: HYDROmorphone HCl 2 MG TABLET 1 MG PO (22:28)
[2024-06-28] MEDS: Melatonin 3 MG TABLET 6 MG PO (22:28)
[2024-06-28] MEDS: Enoxaparin Sodium 40 MG/0.4 ML SYRINGE SUBCUT (22:29)
[2024-06-29] VITALS (8 sets, daily range): BP systolic 120–148; BP diastolic 67–86; PULSE 63–76; RESP 18–20; TEMP 36.3–37.1; O2SAT 94–100
[2024-06-29 07:22] LABS: HCV Log PCR 6.94 Log IU/mL (NOT DETECTED)
[2024-06-29] MEDS: methADONE HCl 20 MG/2 ML ORAL.CONC 60 MG PO (08:28)
[2024-06-29] MEDS: Thiamine HCL 100 MG TABLET PO (08:28)
[2024-06-29] MEDS: Folic Acid 1 MG TABLET PO (08:28)
[2024-06-29] MEDS: Gabapentin 400 MG CAPSULE 800 MG PO ×3 (08:28→20:45)
[2024-06-29] MEDS: PHENobarbitaL 15 MG TABLET PO (08:28)
[2024-06-29] MEDS: Nicotine 14 MG PATCH.TD24 TRANSDERMA (08:31)
--- NOTE | 2024-06-29 08:49 | HO.PM.IMPN ---
Subjective Subjective Date of Service: 06/29/24 Interval History: f/u on bacteremia, sepsis repeat culture 06/27 positive 1/2 Was sleeping on the floor because it helps back pain lost iv access Physical Exam Vital Signs: Vital Signs: Last Vital Signs Temp 98.7 F 06/29/24 08:00 Pulse 76 06/29/24 08:00 Resp 18 06/29/24 08:00 BP 130/81 06/29/24 08:00 Pulse Ox 100 06/29/24 08:00 O2 Del Method Room Air 06/29/24 08:00 O2 Flow Rate 2 06/24/24 18:29 BMI result Body Mass Index 27.9 Const: Other: General: AO X 3, no acute distress Resp: CTA bilateral CVS: S1,S2,RRR GI: +BS, NT, no distention Skin: No rash MSK: no back tenderness or fluctuance Neuro: motor grossly intact Psych: appropriate affect Objective Data Active Medications Acetaminophen (Acetaminophen 325 Mg Tablet) 650 mg PO Q6H PRN PRN Reason: Pain, Mild (Pain Scale 1-3), fever or headache Last Admin: 06/27/24 12:14 Dose: 650 mg Documented By: SD Calcium Carbonate (Calcium Carbonate 750 Mg Tab.Chew) 750 mg PO Q4H PRN PRN Reason: Heartburn Clonidine HCl (Clonidine Hcl 0.1 Mg Tablet) 0.1 mg PO TID PRN; Protocol PRN Reason: Opiate Withdrawal Last Admin: 06/28/24 22:27 Dose: 0.1 mg Documented By: SACHIN Enoxaparin Sodium (Enoxaparin Sodium 40 Mg/0.4 Ml Syringe) 40 mg SUBCUT Q24H [facility] Last Admin: 06/28/24 22:29 Dose: 40 mg Documented By: SACHIN Folic Acid (Folic Acid 1 Mg Tablet) 1 mg PO DAILY [facility] Last Admin: 06/29/24 08:28 Dose: 1 mg Documented By: GRETCHEN Gabapentin (Gabapentin 400 Mg Capsule) 800 mg PO TID [facility] Last Admin: 06/29/24 08:28 Dose: 800 mg Documented By: GRETCHEN Hydroxyzine HCl (Hydroxyzine Hcl 25 Mg Tablet) 25 mg PO Q6H PRN PRN Reason: anxiety/restlessness Last Admin: 06/28/24 22:28 Dose: 25 mg Documented By: SACHIN Daptomycin 720 mg/ Sodium (Chloride) 64.4 mls @ 100 mls/hr IV Q24H [facility] Last Admin: 06/28/24 22:21 Dose: Not Given Documented By: SACHIN Non-Admin Reason: no iv access MD molina Magnesium Hydroxide (Milk Of Magnesia 30 Ml Oral.Susp) 30 ml PO DAILY PRN PRN Reason: Constipation Melatonin (Melatonin 3 Mg Tablet) 6 mg PO BEDTIME PRN PRN Reason: Insomnia Last Admin: 06/28/24 22:28 Dose: 6 mg Documented By: SACHIN Methadone HCl (Methadone Hcl 20 Mg/2 Ml Oral.Conc) 60 mg PO DAILY [facility] Last Admin: 06/29/24 08:28 Dose: 60 mg Documented By: GRETCHEN Co-signed By: THERON Nicotine (Nicotine 14 Mg Patch.Td24) 14 mg TRANSDERMA DAILY [facility] Last Admin: 06/29/24 08:31 Dose: 14 mg Documented By: GRETCHEN Nicotine Polacrilex (Nicotine Polacrilex 2 Mg Gum) 2 mg BUCCAL Q1H PRN PRN Reason: Nicotine Cravings Last Admin: 06/27/24 11:41 Dose: 2 mg Documented By: SD Ondansetron HCl (Ondansetron Hcl 4 Mg/2 Ml Vial) 4 mg IVPUSH Q8H PRN PRN Reason: Nausea and Vomiting Pharmacy Consult (Consult Rx Etoh Phenob Im/Po) 1 each MISCELLANE ONCE PRN; Protocol PRN Reason: Consult order Phenobarbital (Phenobarbital 15 Mg Tablet) 15 mg PO DAILY [facility] Stop: 06/30/24 09:01 Last Admin: 06/29/24 08:28 Dose: 15 mg Documented By: GRETCHEN Sodium Chloride (0.9 % Sodium Chloride Flush 3 Ml Syringe) 3 ml IVFLUSH QSHIFT [facility] Last Admin: 06/29/24 08:33 Dose: Not Given Documented By: GRETCHEN Non-Admin Reason: No Access Thiamine HCl (Thiamine Hcl 100 Mg Tablet) 100 mg PO DAILY [facility] Last Admin: 06/29/24 08:28 Dose: 100 mg Documented By: GRETCHEN Labs 06/27/24 05:26 06/27/24 05:26 Labs: Laboratory Results - last 24 hr 06/27/24 05:26 Hep C Viral Load [id number] H Hep C Viral Load Log 6.94 H Microbiology Microbiology Results: Microbiology 06/27/24 09:49 Blood Culture - Preliminary Blood - Venous No growth after 24 hours. 06/27/24 09:49 Blood Culture - Preliminary Blood - Venous Prelim: GPC Gram Stain only Assessment and Plan (1) Leukocytosis: Status: Acute (2) Acute encephalopathy: Status: Acute (3) Fever: Status: Acute (4) Active substance abuse: Status: Acute Plan 44yo M with IDU, AUD, mood disorder presenting with fever + chills and found to have staphylococcal bacteremia sepsis due to Staph aureus bacteremia - vanc + cefepime 06/24-06/25, then dapto 06/25- [as pt had refused vanco trough monitoring] - TTE 06/27 no vegetation, repeat BCx 06/27 1 +, BCx 06/28 pending, PICC once clear - ID consulted + following - MRI L-spine pending -mid line for iv abx polysubstance abuse [fentanyl, cocaine] - methadone per addiction med - prn clonidine, hydroxyzine - HBV immune from prior infection - HCV Ab+, viral load pending - HIV negative Alcohol use disorder - continue phenobarbital taper, thiamine, folic acid KRISTINA - replete Fe once infection under control VTE ppx - enoxaparin dispo - will need STR for long-term IV ABX Need for inpt: IV Abx for active bacteremia. Total time managing care of this patient today: 35 minutes. Quality Stroke Does the patient have a stroke diagnosis?: No VTE Prior VTE?: No VTE Risk Level:: Medical - moderate - high VTE Device Contraindication: Treatment Not Indicated VTE Drug Contraindication: N/A - Med Ordered
--- NOTE | 2024-06-29 09:37 | HO.PICC ---
PICC Line Insertion NPICC Diagnosis: Osteomyelitis Indication: 6wks Pertinent Labs: reviewed Technique: Following informed consent including risks, benefits and alternatives and using sterile technique including cap and mask, sterile gown, glove and drape, the right arm was prepped and draped in the usual sterile fashion of full barrier technique with G. Following completion of [place] Protocol the skin and soft tissues were anesthetized with 1% Lidocaine plain. Using ultrasound guidance, right brachial vein access was obtained. Over an 0.018 wire through peel-away sheath, a 4 fr single lumen PASV PICC line was positioned. Catheter length is 41cm internal length, 0cm external length, for a total trimmed length of 41cm. The procedure was performed in rm 272. Tip verification was performed by Pradeep Baum with [place] 3CG. Tip located in SVC. Ultrasound was used to document vein patency and for needle entry. A formal ultrasound picture and cardiac rhythm strip was recorded. Vascular Lab Nurse has released the line for use and it is currently dressed with a StatLock, Tegaderm, and CHG disc. Verification has been performed for blood return and line patency. Arm Circumference: 32cm Equipment: SMITH (formerly [employer]) PowerPICC SOLO catheter with [id number] Catheter Type: 4FR single lumen PASV catheter Lot #: [id number]
[2024-06-29] MEDS: Morphine Sulfate 2 MG/ML CARTRIDGE IVPUSH ×2 (12:11→18:11)
[2024-06-29] MEDS: gadobutroL 10 ML VIAL IVPUSH (13:18)
--- NOTE | 2024-06-29 14:17 | MHC.RECOVRN ---
Met with pt to follow up after receiving 60 mg methadone this morning. Pt laying on the ground, reports it feels better on his back as he is experiencing significant back pain. Reports he received Dilaudid last night which helped. Pt reports feeling better with methadone dose, however, would like to continue titration. Pt states I would like to get to 80 or 100 mg. Pt not reporting withdrawal symptoms, only back pain and headache. Pt denies other questions or concerns for t/w. Discussed with Floresita Barry APRN.
[2024-06-29] MEDS: 0.9 % Sodium Chloride Flush 3 ML SYRINGE IVFLUSH ×2 (14:42→20:54)
--- NOTE | 2024-06-29 16:19 | MHC.CM.PN ---
Pt. accepted at [facility] when is ready for DC, and he is in agreement. Pt said he is active with [facility] for his Methadone.
--- NOTE | 2024-06-29 17:09 | PC.NURSE ---
Pharmacy called to request a bag of Daptomycin early per MD order,pharmacy stated it takes a while to get it ready but they will bring it as soon as possible, MD updated.
--- NOTE | 2024-06-29 19:46 | PM.EVENT ---
Event Note Date of Service: 06/29/24 Event Note: MRI spine shows T11-12 septic arthritis with periarticular phlegmon and microabscesses in the adjacent left paraspinal soft tissues/musculature and L4-L5 discitis/osteomyelitis. Appreciate ID Time Spent With Patient Time: Total time managing care of this patient today ____ minutes.
[2024-06-29] MEDS: HYDROmorphone HCl 2 MG/ML VIAL IVPUSH (20:44)
[2024-06-29] MEDS: cloNIDine HCL 0.1 MG TABLET PO (20:47)
[2024-06-29] MEDS: hydrOXYzine HCL 25 MG TABLET PO (20:48)
[2024-06-29] MEDS: Melatonin 3 MG TABLET 6 MG PO (20:48)
[2024-06-29] MEDS: Enoxaparin Sodium 40 MG/0.4 ML SYRINGE SUBCUT (21:26)
[2024-06-30] VITALS (7 sets, daily range): BP systolic 105–132; BP diastolic 69–83; PULSE 76–86; RESP 16–20; TEMP 36–36.9; O2SAT 97–100
[2024-06-30] MEDS: 0.9 % Sodium Chloride Flush 3 ML SYRINGE IVFLUSH ×2 (07:57→14:54)
[2024-06-30] MEDS: HYDROmorphone HCl 2 MG/ML VIAL IVPUSH ×4 (07:58→20:28)
[2024-06-30] MEDS: methADONE HCl 20 MG/2 ML ORAL.CONC 65 MG PO (08:14)
[2024-06-30] MEDS: Folic Acid 1 MG TABLET PO (08:17)
[2024-06-30] MEDS: PHENobarbitaL 15 MG TABLET PO (08:17)
[2024-06-30] MEDS: Thiamine HCL 100 MG TABLET PO (08:17)
[2024-06-30] MEDS: Gabapentin 400 MG CAPSULE 800 MG PO ×3 (08:17→20:28)
[2024-06-30] MEDS: Nicotine 14 MG PATCH.TD24 TRANSDERMA (08:17)
--- NOTE | 2024-06-30 09:06 | MHC.RECOVRN ---
Pts referral sent to [facility] in [place]. Pt had reported to CM that he was active with the [facility], however, pt was discharged in May due to no shows.
[2024-06-30] MEDS: ceFAZolin Sodium/Dextrose,Iso 2 GM/50 ML PIGGYBACK IV ×2 (09:10→16:28)
--- NOTE | 2024-06-30 10:12 | P.PNIM_ITS ---
Subjective Subjective Date of Service: 06/30/24 Interval History: f/u on bacteremia, sepsis repeat culture 06/28 negative x 48 hrs Physical Exam 2 Vital Signs: Vital Signs: Last Vital Signs Temp 97.8 F 06/30/24 07:34 Pulse 86 06/30/24 07:34 Resp 18 06/30/24 07:34 BP 105/69 06/30/24 07:34 Pulse Ox 100 06/30/24 07:34 O2 Del Method Room Air 06/30/24 07:34 O2 Flow Rate 2 06/24/24 18:29 BMI result Body Mass Index 27.9 Const: Other: General: AO X 3, no acute distress Resp: CTA bilateral CVS: S1,S2,RRR GI: +BS, NT, no distention Skin: No rash MSK: no back tenderness or fluctuance Neuro: motor grossly intact Psych: appropriate affect Objective Data Active Medications Acetaminophen (Acetaminophen 325 Mg Tablet) 650 mg PO Q6H PRN PRN Reason: Pain, Mild (Pain Scale 1-3), fever or headache Last Admin: 06/27/24 12:14 Dose: 650 mg Documented By: SD Calcium Carbonate (Calcium Carbonate 750 Mg Tab.Chew) 750 mg PO Q4H PRN PRN Reason: Heartburn Clonidine HCl (Clonidine Hcl 0.1 Mg Tablet) 0.1 mg PO TID PRN; Protocol PRN Reason: Opiate Withdrawal Last Admin: 06/29/24 20:47 Dose: 0.1 mg Documented By: SACHIN Enoxaparin Sodium (Enoxaparin Sodium 40 Mg/0.4 Ml Syringe) 40 mg SUBCUT Q24H [facility] Last Admin: 06/29/24 21:26 Dose: 40 mg Documented By: SACHIN Folic Acid (Folic Acid 1 Mg Tablet) 1 mg PO DAILY [facility] Last Admin: 06/30/24 08:17 Dose: 1 mg Documented By: GIOVANNA Gabapentin (Gabapentin 400 Mg Capsule) 800 mg PO TID [facility] Last Admin: 06/30/24 08:17 Dose: 800 mg Documented By: GIOVANNA Hydromorphone HCl (Hydromorphone Hcl 2 Mg/Ml Vial) 2 mg IVPUSH Q4H PRN; Protocol PRN Reason: Pain, Severe (Pain Scale 7-10) Last Admin: 06/30/24 07:58 Dose: 2 mg Documented By: GIOVANNA Hydroxyzine HCl (Hydroxyzine Hcl 25 Mg Tablet) 25 mg PO Q6H PRN PRN Reason: anxiety/restlessness Last Admin: 06/29/24 20:48 Dose: 25 mg Documented By: SACHIN Cefazolin Sodium/Dextrose (Ancef) 2 gm in 50 mls @ 100 mls/hr IV Q8H [facility] Last Infusion: 06/30/24 09:43 Dose: Infused Documented By: GIOVANNA Magnesium Hydroxide (Milk Of Magnesia 30 Ml Oral.Susp) 30 ml PO DAILY PRN PRN Reason: Constipation Melatonin (Melatonin 3 Mg Tablet) 6 mg PO BEDTIME PRN PRN Reason: Insomnia Last Admin: 06/29/24 20:48 Dose: 6 mg Documented By: SACHIN Methadone HCl (Methadone Hcl 20 Mg/2 Ml Oral.Conc) 65 mg PO DAILY [facility] Last Admin: 06/30/24 08:14 Dose: 65 mg Documented By: GIOVANNA Co-signed By: THERON Nicotine (Nicotine 14 Mg Patch.Td24) 14 mg TRANSDERMA DAILY [facility] Last Admin: 06/30/24 08:17 Dose: 14 mg Documented By: GIOVANNA Nicotine Polacrilex (Nicotine Polacrilex 2 Mg Gum) 2 mg BUCCAL Q1H PRN PRN Reason: Nicotine Cravings Last Admin: 06/27/24 11:41 Dose: 2 mg Documented By: SD Ondansetron HCl (Ondansetron Hcl 4 Mg/2 Ml Vial) 4 mg IVPUSH Q8H PRN PRN Reason: Nausea and Vomiting Pharmacy Consult (Consult Rx Etoh Phenob Im/Po) 1 each MISCELLANE ONCE PRN; Protocol PRN Reason: Consult order Sodium Chloride (0.9 % Sodium Chloride Flush 3 Ml Syringe) 3 ml IVFLUSH QSHIFT [facility] Last Admin: 06/30/24 07:57 Dose: 3 ml Documented By: GIOVANNA Thiamine HCl (Thiamine Hcl 100 Mg Tablet) 100 mg PO DAILY [facility] Last Admin: 06/30/24 08:17 Dose: 100 mg Documented By: GIOVANNA Labs 06/27/24 05:26 06/27/24 05:26 Microbiology Microbiology Results: Microbiology 06/28/24 10:06 Blood Culture - Preliminary Blood - Venous No growth after 24 hours. 06/28/24 10:06 Blood Culture - Preliminary Blood - Venous No growth after 24 hours. 06/27/24 09:49 Blood Culture - Preliminary Blood - Venous No growth after 48 hours. 06/27/24 09:49 Blood Culture - Final Blood - Venous Staphylococcus aureus Assessment and Plan (1) Leukocytosis: Status: Acute (2) Acute encephalopathy: Status: Acute (3) Fever: Status: Acute (4) Active substance abuse: Status: Acute Plan 44yo M with IDU, AUD, mood disorder presenting with fever + chills and found to have staphylococcal bacteremia sepsis due to Staph aureus bacteremia, MSSA - vanc + cefepime 06/24-06/25, then dapto 06/25 to 06/30 -Kefzol 2 gm 8, starting 06/30 - TTE 06/27 no vegetation, repeat BCx 06/27 1 +, BCx 06/28 negative x 48 - ID following - MRI L-spine result pending -PICC line for nursing home IV Abx polysubstance abuse [fentanyl, cocaine] - methadone per addiction med - prn clonidine, hydroxyzine - HBV immune from prior infection - HCV Ab+, viral load pending - HIV negative Alcohol use disorder - continue phenobarbital taper, thiamine, folic acid KRISTINA - replete Fe once infection under control VTE ppx - enoxaparin dispo - will need STR for long-term IV ABX Need for inpt: IV Abx for active bacteremia. Total time managing care of this patient today: 35 minutes. Quality Stroke Does the patient have a stroke diagnosis?: No VTE Prior VTE?: No VTE Risk Level:: Medical - moderate - high VTE Device Contraindication: Treatment Not Indicated VTE Drug Contraindication: N/A - Med Ordered
[2024-06-30] MEDS: hydrOXYzine HCL 25 MG TABLET PO ×2 (14:53→20:29)
[2024-06-30] MEDS: Enoxaparin Sodium 40 MG/0.4 ML SYRINGE SUBCUT (20:28)
[2024-06-30] MEDS: Melatonin 3 MG TABLET 6 MG PO (20:28)
[2024-06-30] MEDS: cloNIDine HCL 0.1 MG TABLET PO (20:29)
--- NOTE | 2024-06-30 21:09 | P.PNADD_ITS ---
Subjective Subjective Date of Service: 06/30/24 Reason For Visit: Fever and chills Interim History: Patient seen in follow up Awake, alert Reporting withdrawal sx well managed at current dose, and would like to continue titrating Back pain better managed with dilaudid which was added last evening Review of Systems Constitutional: Reports as per [facility] Mental Status Exam Mental Status Exam Patient Appearance: Appropriate Level of Consciousness: Awake, Appropriate and Alert Diagnostics Vital Signs (24Hr): Vital Signs - 24 hr 06/30/24 00:00 06/30/24 04:00 06/30/24 07:34 Temperature 97.4 F 97.8 F Pulse Rate 76 86 Respiratory Rate 18 18 18 Blood Pressure 121/78 105/69 Pulse Oximetry 98 100 Oxygen Delivery Method Room Air Room Air 06/30/24 12:00 06/30/24 15:45 06/30/24 20:00 Temperature 96.8 F 97.2 F 97.6 F Pulse Rate 86 79 86 Respiratory Rate 18 20 20 Blood Pressure 132/83 132/77 120/79 Pulse Oximetry 97 98 99 Oxygen Delivery Method Room Air Room Air Room Air BMI result Body Mass Index 27.9 Labs 06/27/24 05:26 06/27/24 05:26 Labs: Laboratory Results - last 48 hr 06/27/24 05:26 Hep C Viral Load [id number] H Hep C Viral Load Log 6.94 H Imaging Radiology Impressions: ITS Impressions Chest X-Ray 06/24/24 16:47 IMPRESSION: Unremarkable examination. Abdomen/Pelvis CT 06/24/24 19:07 IMPRESSION: 1. No acute abnormality. 2. Hepatic steatosis unchanged. 3. Borderline splenomegaly unchanged. 4. Mild calcific atherosclerotic disease. 5. Degenerative changes of the spine and hips. Fleischner guidelines were followed. Chest CTA 06/24/24 19:07 IMPRESSION: 1. No evidence for pulmonary embolism. However the exam is suboptimal for evaluation of pulmonary emboli as above and therefore cannot be excluded. 2. Hepatic steatosis. 3. VTE: indeterminate. 4. No evidence for pneumonia Head CT 06/24/24 19:07 IMPRESSION: No acute intracranial pathology. Lumbar Spine MRI 06/29/24 12:59 IMPRESSION: 1. Findings suspicious for left T11-T12 septic facet arthritis with with periarticular phlegmon and microabscesses in the adjacent left paraspinal soft tissues/musculature. Enhancing phlegmon asymmetrically effaces the left T11-T12 neural foraminal fat along the course of the exiting left T11 nerve root and extends within the left T11-T12 intercostal region. Enhancing epidural phlegmon within the imaged dorsal thoracic spinal canal, most pronounced at T11-T12, where there is a 7 mm focus of nonenhancement suspicious for dorsal epidural abscess, excluded from the [id number] in the axial plane. This contributes to apparent mild to moderate spinal canal stenosis at T11-T12. 2. Asymmetric severe disc height loss on the right at L4-L5 with right-sided enhancing fluid signal abnormality of the disc space, cortical endplate irregularity/erosive change better depicted on CT, and enhancing marrow signal abnormality of the opposing endplates, which may reflect type I Modic endplate changes related to discogenic disease versus discitis-osteomyelitis. Enhancing marrow signal abnormality centered at the right L4-L5 facet joint may be degenerative/stress related and/or reflective of early septic facet arthritis. 3. Apparent faint enhancement along several cauda equina nerve roots may be artifactual given extent of motion. 4. Generalized signal abnormality within the bone marrow which suggests a marrow infiltration process. This is nonspecific and possible etiologies include stimulated red marrow (as can be seen with smoking, altitude, chronic anemia, etc.), chronic infection, and early phases of myelodysplastic/myeloproliferative disorders. Consider correlation with clinical history and, potentially, a CBC with blood smear. 5. Lumbar spondylosis as above without significant spinal canal stenosis at any level. Enhancing central annular fissure at L4-L5. Mild to moderate right L4-L5 and bilateral L5-S1 neural foraminal stenosis. Medications Medications Current Medications Acetaminophen (Acetaminophen 325 Mg Tablet) 650 mg PO Q6H PRN PRN Reason: Pain, Mild (Pain Scale 1-3), fever or headache Last Admin: 06/27/24 12:14 Dose: 650 mg Calcium Carbonate (Calcium Carbonate 750 Mg Tab.Chew) 750 mg PO Q4H PRN PRN Reason: Heartburn Clonidine HCl (Clonidine Hcl 0.1 Mg Tablet) 0.1 mg PO TID PRN; Protocol PRN Reason: Opiate Withdrawal Last Admin: 06/30/24 20:29 Dose: 0.1 mg Enoxaparin Sodium (Enoxaparin Sodium 40 Mg/0.4 Ml Syringe) 40 mg SUBCUT Q24H [facility] Last Admin: 06/30/24 20:28 Dose: 40 mg Folic Acid (Folic Acid 1 Mg Tablet) 1 mg PO DAILY [facility] Last Admin: 06/30/24 08:17 Dose: 1 mg Gabapentin (Gabapentin 400 Mg Capsule) 800 mg PO TID [facility] Last Admin: 06/30/24 20:28 Dose: 800 mg Hydromorphone HCl (Hydromorphone Hcl 2 Mg/Ml Vial) 2 mg IVPUSH Q4H PRN; Protocol PRN Reason: Pain, Severe (Pain Scale 7-10) Last Admin: 06/30/24 20:28 Dose: 2 mg Hydroxyzine HCl (Hydroxyzine Hcl 25 Mg Tablet) 25 mg PO Q6H PRN PRN Reason: anxiety/restlessness Last Admin: 06/30/24 20:29 Dose: 25 mg Cefazolin Sodium/Dextrose (Ancef) 2 gm in 50 mls @ 100 mls/hr IV Q8H [facility] Last Infusion: 06/30/24 17:09 Dose: Infused Magnesium Hydroxide (Milk Of Magnesia 30 Ml Oral.Susp) 30 ml PO DAILY PRN PRN Reason: Constipation Melatonin (Melatonin 3 Mg Tablet) 6 mg PO BEDTIME PRN PRN Reason: Insomnia Last Admin: 06/30/24 20:28 Dose: 6 mg Methadone HCl (Methadone Hcl 20 Mg/2 Ml Oral.Conc) 65 mg PO DAILY [facility] Last Admin: 06/30/24 08:14 Dose: 65 mg Nicotine (Nicotine 14 Mg Patch.Td24) 14 mg TRANSDERMA DAILY [facility] Last Admin: 06/30/24 08:17 Dose: 14 mg Nicotine Polacrilex (Nicotine Polacrilex 2 Mg Gum) 2 mg BUCCAL Q1H PRN PRN Reason: Nicotine Cravings Last Admin: 06/27/24 11:41 Dose: 2 mg Ondansetron HCl (Ondansetron Hcl 4 Mg/2 Ml Vial) 4 mg IVPUSH Q8H PRN PRN Reason: Nausea and Vomiting Pharmacy Consult (Consult Rx Etoh Phenob Im/Po) 1 each MISCELLANE ONCE PRN; Protocol PRN Reason: Consult order Sodium Chloride (0.9 % Sodium Chloride Flush 3 Ml Syringe) 3 ml IVFLUSH QSHIFT [facility] Last Admin: 06/30/24 14:54 Dose: 3 ml Thiamine HCl (Thiamine Hcl 100 Mg Tablet) 100 mg PO DAILY [facility] Last Admin: 06/30/24 08:17 Dose: 100 mg Allergies Allergies Allergy/AdvReac Type Severity Reaction Status Date / Time fish derived [FISH] Allergy Unknown UNKNOWN - Verified 06/24/24 13:29 NOT ANAPHYLAXIS PER PATIENT trazodone AdvReac Severe priapr Verified 06/24/24 13:29 Assessment & Plan Assessment & Plan (1) Opioid use disorder: Status: Acute Code(s): F11.90 - Opioid use, unspecified, uncomplicated Assessment and Plan: * methadone increase to 70mg Total time managing care of this patient today ____ minutes.
[2024-07-01] VITALS (7 sets, daily range): BP systolic 123–138; BP diastolic 61–82; PULSE 62–83; RESP 16–20; TEMP 36.2–36.4; O2SAT 94–100
[2024-07-01] MEDS: 0.9 % Sodium Chloride Flush 3 ML SYRINGE IVFLUSH ×3 (01:06→14:55)
[2024-07-01] MEDS: ceFAZolin Sodium/Dextrose,Iso 2 GM/50 ML PIGGYBACK IV ×3 (01:13→16:32)
[2024-07-01] MEDS: HYDROmorphone HCl 2 MG/ML VIAL IVPUSH ×5 (01:13→20:27)
--- NOTE | 2024-07-01 01:35 | PC.NURSE ---
Addendum entered by Cindy Allen RN 07/01/24 02:25: Patient requesting vitals to be done now (instead of 04:00 as scheduled) after finishing his snack and IV abx; pt states to take his vitals now as he does not want to be woken again. Vitals obtained at 02:02 per pt request. Original Note: Assumed care of patient at 23:00. Pt observed laying on blanket on the floor on assuming care; pt stated it helps his back pain. Pt is A&Ox4, resistive to care. Pt refused majority of physical assessment except for allowing filing writer to replace U/S IV dressing to RUE as it was positional/sluggish on assuming care; resolved and flushes easily after dressing change. Pt demanding pain meds and cereal and milk, warm blankets, provided. Abx infusing as ordered. Call [facility] within reach.
[2024-07-01] MEDS: methADONE HCl 20 MG/2 ML ORAL.CONC 70 MG PO (07:59)
[2024-07-01] MEDS: Gabapentin 400 MG CAPSULE 800 MG PO ×3 (08:04→20:26)
[2024-07-01] MEDS: Folic Acid 1 MG TABLET PO (08:04)
[2024-07-01] MEDS: Nicotine 14 MG PATCH.TD24 TRANSDERMA (08:04)
[2024-07-01] MEDS: Thiamine HCL 100 MG TABLET PO (08:04)
--- NOTE | 2024-07-01 08:47 | P.PNIM_ITS ---
Subjective Subjective Date of Service: 07/01/24 Interval History: f/u on bacteremia, sepsis no fever, last BCx negative at 48 hrs still with back pain, MRI report still not available. Physical Exam 2 Vital Signs: Vital Signs: Last Vital Signs Temp 97.2 F 07/01/24 07:50 Pulse 62 07/01/24 07:50 Resp 18 07/01/24 07:50 BP 124/70 07/01/24 07:50 Pulse Ox 99 07/01/24 07:50 O2 Del Method Room Air 07/01/24 07:50 O2 Flow Rate 2 06/24/24 18:29 BMI result Body Mass Index 27.9 Const: Other: General: AO X 3, no acute distress Resp: CTA bilateral CVS: S1,S2,RRR GI: +BS, NT, no distention Skin: No rash MSK: no back tenderness or fluctuance Neuro: motor grossly intact Psych: appropriate affect Objective Data Active Medications Acetaminophen (Acetaminophen 325 Mg Tablet) 650 mg PO Q6H PRN PRN Reason: Pain, Mild (Pain Scale 1-3), fever or headache Last Admin: 06/27/24 12:14 Dose: 650 mg Documented By: SD Calcium Carbonate (Calcium Carbonate 750 Mg Tab.Chew) 750 mg PO Q4H PRN PRN Reason: Heartburn Clonidine HCl (Clonidine Hcl 0.1 Mg Tablet) 0.1 mg PO TID PRN; Protocol PRN Reason: Opiate Withdrawal Last Admin: 06/30/24 20:29 Dose: 0.1 mg Documented By: MARIO Enoxaparin Sodium (Enoxaparin Sodium 40 Mg/0.4 Ml Syringe) 40 mg SUBCUT Q24H [facility] Last Admin: 06/30/24 20:28 Dose: 40 mg Documented By: MARIO Folic Acid (Folic Acid 1 Mg Tablet) 1 mg PO DAILY [facility] Last Admin: 07/01/24 08:04 Dose: 1 mg Documented By: GIOVANNA Gabapentin (Gabapentin 400 Mg Capsule) 800 mg PO TID [facility] Last Admin: 07/01/24 08:04 Dose: 800 mg Documented By: GIOVANNA Hydromorphone HCl (Hydromorphone Hcl 2 Mg/Ml Vial) 2 mg IVPUSH Q4H PRN; Protocol PRN Reason: Pain, Severe (Pain Scale 7-10) Last Admin: 07/01/24 07:55 Dose: 2 mg Documented By: GIOVANNA Hydroxyzine HCl (Hydroxyzine Hcl 25 Mg Tablet) 25 mg PO Q6H PRN PRN Reason: anxiety/restlessness Last Admin: 06/30/24 20:29 Dose: 25 mg Documented By: MARIO Cefazolin Sodium/Dextrose (Ancef) 2 gm in 50 mls @ 100 mls/hr IV Q8H [facility] Last Infusion: 07/01/24 08:43 Dose: Infused Documented By: GIOVANNA Magnesium Hydroxide (Milk Of Magnesia 30 Ml Oral.Susp) 30 ml PO DAILY PRN PRN Reason: Constipation Melatonin (Melatonin 3 Mg Tablet) 6 mg PO BEDTIME PRN PRN Reason: Insomnia Last Admin: 06/30/24 20:28 Dose: 6 mg Documented By: MARIO Methadone HCl (Methadone Hcl 20 Mg/2 Ml Oral.Conc) 70 mg PO DAILY [facility] Last Admin: 07/01/24 07:59 Dose: 70 mg Documented By: GIOVANNA Co-signed By: LION Nicotine (Nicotine 14 Mg Patch.Td24) 14 mg TRANSDERMA DAILY [facility] Last Admin: 07/01/24 08:04 Dose: 14 mg Documented By: GIOVANNA Nicotine Polacrilex (Nicotine Polacrilex 2 Mg Gum) 2 mg BUCCAL Q1H PRN PRN Reason: Nicotine Cravings Last Admin: 06/27/24 11:41 Dose: 2 mg Documented By: SD Ondansetron HCl (Ondansetron Hcl 4 Mg/2 Ml Vial) 4 mg IVPUSH Q8H PRN PRN Reason: Nausea and Vomiting Pharmacy Consult (Consult Rx Etoh Phenob Im/Po) 1 each MISCELLANE ONCE PRN; Protocol PRN Reason: Consult order Sodium Chloride (0.9 % Sodium Chloride Flush 3 Ml Syringe) 3 ml IVFLUSH QSHIFT [facility] Last Admin: 07/01/24 07:55 Dose: 3 ml Documented By: GIOVANNA Thiamine HCl (Thiamine Hcl 100 Mg Tablet) 100 mg PO DAILY [facility] Last Admin: 07/01/24 08:04 Dose: 100 mg Documented By: GIOVANNA Labs 06/27/24 05:26 06/27/24 05:26 Microbiology Microbiology Results: Microbiology 06/28/24 10:06 Blood Culture - Preliminary Blood - Venous No growth after 48 hours. 06/28/24 10:06 Blood Culture - Preliminary Blood - Venous No growth after 48 hours. Assessment and Plan (1) Leukocytosis: Status: Acute (2) Acute encephalopathy: Status: Acute (3) Fever: Status: Acute (4) Active substance abuse: Status: Acute Plan 44yo M with IDU, AUD, mood disorder presenting with fever + chills and found to have staphylococcal bacteremia sepsis due to Staph aureus bacteremia, MSSA - vanc + cefepime 06/24-06/25, then dapto 06/25 to 06/30 -Kefzol 2 gm 8, starting 06/30 - TTE 06/27 no vegetation, repeat BCx 06/27 1 +, BCx 06/28 negative x 48 - ID following - MRI L-spine result pending -PICC line for alf IV Abx -check cbc, bmp polysubstance abuse [fentanyl, cocaine] - methadone per addiction med - prn clonidine, hydroxyzine - HBV immune from prior infection - HCV Ab+, viral load pending - HIV negative Alcohol use disorder - continue phenobarbital taper, thiamine, folic acid KRISTINA - Iron once infection under control VTE ppx - enoxaparin dispo - will need STR for long-term IV ABX Need for inpt: IV Abx for active bacteremia. Total time managing care of this patient today: 35 minutes. Quality Stroke Does the patient have a stroke diagnosis?: No VTE Prior VTE?: No VTE Risk Level:: Medical - moderate - high VTE Device Contraindication: Treatment Not Indicated VTE Drug Contraindication: N/A - Med Ordered
--- NOTE | 2024-07-01 10:36 | HO.PICC ---
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 Following completion of [place] Protocol the skin and soft tissues were anesthetized with 1% Lidocaine plain. Using ultrasound guidance, left Basilic vein access was obtained on first attempt. Over an 0.018 wire through peel-away sheath, a 4FR single lumen PASV PICC line was positioned. Catheter length is 42 CM internal length, at the 0 CM external length, for a total trimmed length of 42 CM. The procedure was performed in S272. Tip verification was performed by Pradeep Baum with Rasta 3CG. Tip located in SVC. Ultrasound was used to document vein patency and for needle entry. A formal ultrasound picture and cardiac rhythm strip was recorded. [facility] has released the line for use and it is currently dressed with a StatLock, Tegaderm, and CHG disc. Verification has been performed for blood return and line patency. Arm Circumference: 31 CM Equipment: Next Performance PowerPICC SOLO Catheter Type: 4FR single lumen PASV PICC Lot #: [id number]
--- NOTE | 2024-07-01 11:31 | PC.NURSE ---
Ok to draw labs off picc line per Dr. March
[2024-07-01 11:55] LABS: Hematocrit 31.3 % (42.0-52.0); Mean Corpuscular HGB Conc 31.9 g/dl (31.0-36.0); Mean Corpuscular Volume 65.6 fL (80.0-98.0); Mean Platelet Volume 9.6 fL (9.4-12.4); Platelet Count 556 X10*3/uL (160-400); Red Blood Count 4.77 X10*6/uL (4.60-5.80); Red Cell Distribution Width 18.8 % (11.0-16.0); White Blood Count 8.7 X10*3/uL (4.8-10.8)
[2024-07-01 12:09] LABS: Anion Gap 12 (12-20); Blood Urea Nitrogen 12 mg/dL (9-16); Calcium 9.1 mg/dL (8.4-10.2); Carbon Dioxide 27 mmol/L (22-29); Chloride 102 mmol/L (96-108); Creatinine Clr Calc Pharmacy 139.5; Estimated Glomerular Filt Rate > 60; Glucose Random 124 mg/dL (60-115); Potassium 4.3 mmol/L (3.3-5.1); Sodium 137 mmol/L (135-145)
--- NOTE | 2024-07-01 12:49 | MHC.CM.PN ---
Patient has received the PICC line. The documentation has been sent to [facility].
[2024-07-01] MEDS: Nicotine Polacrilex 2 MG GUM BUCCAL ×2 (13:37→17:49)
[2024-07-01] MEDS: hydrOXYzine HCL 25 MG TABLET PO (13:37)
--- NOTE | 2024-07-01 15:57 | MHC.RECOVRN ---
[facility] has received patient's referral and expects patient to begin dosing with them on 07/05 (dc from [facility] 07/04).
[2024-07-01] MEDS: Milk of Magnesia 30 ML ORAL.SUSP PO (17:40)
[2024-07-01] MEDS: Enoxaparin Sodium 40 MG/0.4 ML SYRINGE SUBCUT (20:26)
[2024-07-01] MEDS: Melatonin 3 MG TABLET 6 MG PO (20:27)
[2024-07-02] MEDS: HYDROmorphone HCl 2 MG/ML VIAL IVPUSH ×5 (00:38→20:11)
[2024-07-02] MEDS: ceFAZolin Sodium/Dextrose,Iso 2 GM/50 ML PIGGYBACK IV ×3 (00:38→17:10)
[2024-07-02 04:00] VITALS: BP 132/70; PULSE 78; RESP 20; TEMP 36.3; O2SAT 97
[2024-07-02] MEDS: 0.9 % Sodium Chloride Flush 3 ML SYRINGE IVFLUSH ×2 (07:30→15:35)
[2024-07-02 07:36] VITALS: BP 125/83; PULSE 73; RESP 18; TEMP 37.1; O2SAT 98
[2024-07-02] MEDS: methADONE HCl 20 MG/2 ML ORAL.CONC 70 MG PO (08:00)
[2024-07-02] MEDS: Folic Acid 1 MG TABLET PO (08:20)
[2024-07-02] MEDS: Gabapentin 400 MG CAPSULE 800 MG PO ×3 (08:20→20:10)
[2024-07-02] MEDS: Thiamine HCL 100 MG TABLET PO (08:20)
[2024-07-02] MEDS: Nicotine 14 MG PATCH.TD24 TRANSDERMA (08:21)
--- NOTE | 2024-07-02 10:06 | P.PNIM_ITS ---
Subjective Subjective Date of Service: 07/02/24 Interval History: f/u on bacteremia, sepsis MRI disckitis and phlegmon findings discussed with [facility] Physical Exam 2 Vital Signs: Vital Signs: Last Vital Signs Temp 98.7 F 07/02/24 07:36 Pulse 73 07/02/24 07:36 Resp 18 07/02/24 07:36 BP 125/83 07/02/24 07:36 Pulse Ox 98 07/02/24 07:36 O2 Del Method Room Air 07/02/24 07:36 O2 Flow Rate 2 06/24/24 18:29 BMI result Body Mass Index 27.9 Const: Other: General: AO X 3, no acute distress Resp: CTA bilateral CVS: S1,S2,RRR GI: +BS, NT, no distention Skin: No rash MSK: no back tenderness or fluctuance Neuro: motor grossly intact, no weakness in the legs, 5/5 strenght, no loss of rectal tone, no urinar incontience, no foot drop Psych: appropriate affect Objective Data Active Medications Acetaminophen (Acetaminophen 325 Mg Tablet) 650 mg PO Q6H PRN PRN Reason: Pain, Mild (Pain Scale 1-3), fever or headache Last Admin: 06/27/24 12:14 Dose: 650 mg Documented By: SD Calcium Carbonate (Calcium Carbonate 750 Mg Tab.Chew) 750 mg PO Q4H PRN PRN Reason: Heartburn Clonidine HCl (Clonidine Hcl 0.1 Mg Tablet) 0.1 mg PO TID PRN; Protocol PRN Reason: Opiate Withdrawal Last Admin: 06/30/24 20:29 Dose: 0.1 mg Documented By: MARIO Enoxaparin Sodium (Enoxaparin Sodium 40 Mg/0.4 Ml Syringe) 40 mg SUBCUT Q24H [facility] Last Admin: 07/01/24 20:26 Dose: 40 mg Documented By: HIEU Folic Acid (Folic Acid 1 Mg Tablet) 1 mg PO DAILY [facility] Last Admin: 07/02/24 08:20 Dose: 1 mg Documented By: RADHA Gabapentin (Gabapentin 400 Mg Capsule) 800 mg PO TID [facility] Last Admin: 07/02/24 08:20 Dose: 800 mg Documented By: RADHA Hydromorphone HCl (Hydromorphone Hcl 2 Mg/Ml Vial) 2 mg IVPUSH Q4H PRN; Protocol PRN Reason: Pain, Severe (Pain Scale 7-10) Last Admin: 07/02/24 07:23 Dose: 2 mg Documented By: RADHA Hydroxyzine HCl (Hydroxyzine Hcl 25 Mg Tablet) 25 mg PO Q6H PRN PRN Reason: anxiety/restlessness Last Admin: 07/01/24 13:37 Dose: 25 mg Documented By: GIOVANNA Comments: patient requested for feeling anxious Cefazolin Sodium/Dextrose (Ancef) 2 gm in 50 mls @ 100 mls/hr IV Q8H [facility] Last Infusion: 07/02/24 09:44 Dose: Infused Documented By: RADHA Magnesium Hydroxide (Milk Of Magnesia 30 Ml Oral.Susp) 30 ml PO DAILY PRN PRN Reason: Constipation Last Admin: 07/01/24 17:40 Dose: 30 ml Documented By: GIOVANNA Comments: patient requested c/o feeling constipated Melatonin (Melatonin 3 Mg Tablet) 6 mg PO BEDTIME PRN PRN Reason: Insomnia Last Admin: 07/01/24 20:27 Dose: 6 mg Documented By: HIEU Methadone HCl (Methadone Hcl 20 Mg/2 Ml Oral.Conc) 70 mg PO DAILY [facility] Last Admin: 07/02/24 08:00 Dose: 70 mg Documented By: RADHA Co-signed By: CONNIE Nicotine (Nicotine 14 Mg Patch.Td24) 14 mg TRANSDERMA DAILY [facility] Last Admin: 07/02/24 08:21 Dose: 14 mg Documented By: RADHA Nicotine Polacrilex (Nicotine Polacrilex 2 Mg Gum) 2 mg BUCCAL Q1H PRN PRN Reason: Nicotine Cravings Last Admin: 07/01/24 17:49 Dose: 2 mg Documented By: GIOVANNA Ondansetron HCl (Ondansetron Hcl 4 Mg/2 Ml Vial) 4 mg IVPUSH Q8H PRN PRN Reason: Nausea and Vomiting Pharmacy Consult (Consult Rx Etoh Phenob Im/Po) 1 each MISCELLANE ONCE PRN; Protocol PRN Reason: Consult order Sodium Chloride (0.9 % Sodium Chloride Flush 3 Ml Syringe) 3 ml IVFLUSH QSHIFT [facility] Last Admin: 07/02/24 07:30 Dose: 3 ml Documented By: RADHA Thiamine HCl (Thiamine Hcl 100 Mg Tablet) 100 mg PO DAILY [facility] Last Admin: 07/02/24 08:20 Dose: 100 mg Documented By: RADHA Labs 07/01/24 11:45 07/01/24 11:45 Labs: Laboratory Results - last 24 hr 07/01/24 11:45 MCV 65.6 L MCH 21.0 L MCHC 31.9 RDW 18.8 H Plt Count 556 H D MPV 9.6 Absolute Nucleated RBC 0.000 Nucleated RBC % (auto) 0.0 Anion Gap 12 Estim Creat Clear Calc 139.5 Estimated GFR > 60 Random Glucose 124 H Calcium 9.1 D Assessment and Plan (1) Bacteremia: Status: Acute (2) Diskitis: Status: Acute Plan 44yo M with IDU, AUD, mood disorder presenting with fever + chills and found to have staphylococcal bacteremia sepsis due to Staph aureus bacteremia, MSSA---clinically improving - vanc + cefepime 06/24-06/25, then dapto 06/25 to 06/30 -Kefzol 2 gm 8, starting 06/30 - TTE 06/27 no vegetation, repeat BCx 06/27 1/2 +, BCx 06/28 negative x 48 - ID following - MRI: 1. Findings suspicious for left T11-T12 septic facet arthritis with with periarticular phlegmon and microabscesses in the adjacent left paraspinal soft tissues/musculature. Enhancing phlegmon asymmetrically effaces the left T11-T12 neural foraminal fat along the course of the exiting left T11 nerve root and extends within the left T11-T12 intercostal region. Enhancing epidural phlegmon within the imaged dorsal thoracic spinal canal, most pronounced at T11-T12, where there is a 7 mm focus of nonenhancement suspicious for dorsal epidural abscess, excluded from the [id number] in the axial plane. This contributes to apparent mild to moderate spinal canal stenosis at T11-T12. Findings discussed with [facility] (Fay Beauchamp) on 07/02/24) they advise no intervention, IV abx and monitoring for neuro deficity. Presently doesn't have weakness or numbness in the limb, he feels much better today, stil has left paraspinal pain and tenderness No urinary or stool incontinence -PICC line for detention IV Abx, ID to make final recommendation - polysubstance abuse [fentanyl, cocaine] - methadone per addiction med - prn clonidine, hydroxyzine - HBV immune from prior infection - HCV Ab+, viral load pending - HIV negative Alcohol use disorder - continue phenobarbital taper, thiamine, folic acid KRISTINA - Iron once infection under control VTE ppx - enoxaparin dispo - will need STR for long-term IV ABX Need for inpt: IV Abx for active bacteremia. Quality Stroke Does the patient have a stroke diagnosis?: No VTE Prior VTE?: No VTE Risk Level:: Medical - moderate - high VTE Device Contraindication: Treatment Not Indicated VTE Drug Contraindication: N/A - Med Ordered
[2024-07-02] MEDS: Ibuprofen 600 MG TABLET PO (12:16)
--- NOTE | 2024-07-02 13:19 | MHC.CM.PN ---
Addendum entered by Ashanti Mcwilliams 07/04/24 07:14: CM MET WITH PT ON THE AFTERNOON OF 07/03/24, HE REPORTS HE DOES NOT KNOW IF HIS WALLET, CARDS, AND MONEY ARE WITH SECURITY. HE REPORTS EVERY TIME HE COMES IN HIS STUFF GOES MISSING. CM EXPLAINED THIS WAS SOMETHING THAT MAY BE ABLE TO BE ADDRESSED ON THURSDAY WHEN SUPERVISORS ARE AVAILABLE. HE SAYS HE HAS ASKED PEOPLE EVERYDAY THIS WEEK, AND THEY ALWAYS SAY THEY WILL LOOK INTO IT, BUT NEVER DO. CM EXPLAINED THE MESSAGE WOULD BE PASSED TO THE THURSDAY CM WHO WOULD FOLLOW UP. Original Note: [facility] CAN ACCEPT PT ON THURSDAY PENDING APPROVAL FROM [facility] AND [facility] LEVEL ONE COMPLETED AND SUBMITTED TODAY PT WILL NEED BLS TRANSPORT
[2024-07-02] MEDS: Nicotine Polacrilex 2 MG GUM BUCCAL (15:42)
[2024-07-02 15:55] VITALS: BP 137/74; PULSE 66; RESP 18; TEMP 36.7; O2SAT 99
[2024-07-02] MEDS: LORazepam 1 MG TABLET PO (17:34)
[2024-07-02 19:36] VITALS: BP 113/57; PULSE 80; RESP 20; TEMP 36.2; O2SAT 93
[2024-07-02] MEDS: Enoxaparin Sodium 40 MG/0.4 ML SYRINGE SUBCUT (20:10)
[2024-07-02] MEDS: Melatonin 3 MG TABLET 6 MG PO (20:11)
[2024-07-03] MEDS: HYDROmorphone HCl 2 MG/ML VIAL IVPUSH ×5 (00:17→19:51)
[2024-07-03] MEDS: LORazepam 1 MG TABLET PO ×4 (00:25→19:52)
[2024-07-03] MEDS: ceFAZolin Sodium/Dextrose,Iso 2 GM/50 ML PIGGYBACK IV ×3 (00:29→16:15)
--- NOTE | 2024-07-03 07:10 | HO.PM.IMPN ---
Subjective Subjective Date of Service: 07/03/24 Interval History: f/u on bacteremia, sepsis MRI disckitis and phlegmon No neurological deficit no urinary or stool bladder incontinence afebrile, some pain in the back overall better Physical Exam Vital Signs: Vital Signs: Last Vital Signs Temp 97.2 F 07/02/24 19:36 Pulse 80 07/02/24 19:36 Resp 20 07/02/24 19:36 BP 113/57 L 07/02/24 19:36 Pulse Ox 93 07/02/24 19:36 O2 Del Method Room Air 07/02/24 19:36 O2 Flow Rate 2 06/24/24 18:29 BMI result Body Mass Index 27.9 Const: Other: General: AO X 3, no acute distress Resp: CTA bilateral CVS: S1,S2,RRR GI: +BS, NT, no distention Skin: No rash MSK: no back tenderness or fluctuance Neuro: motor grossly intact, no weakness in the legs, 5/5 strenght, no loss of rectal tone, no urinar incontience, no foot drop Psych: appropriate affect Objective Data Active Medications Acetaminophen (Acetaminophen 325 Mg Tablet) 650 mg PO Q6H PRN PRN Reason: Pain, Mild (Pain Scale 1-3), fever or headache Last Admin: 06/27/24 12:14 Dose: 650 mg Documented By: SD Calcium Carbonate (Calcium Carbonate 750 Mg Tab.Chew) 750 mg PO Q4H PRN PRN Reason: Heartburn Clonidine HCl (Clonidine Hcl 0.1 Mg Tablet) 0.1 mg PO TID PRN; Protocol PRN Reason: Opiate Withdrawal Last Admin: 06/30/24 20:29 Dose: 0.1 mg Documented By: MARIO Enoxaparin Sodium (Enoxaparin Sodium 40 Mg/0.4 Ml Syringe) 40 mg SUBCUT Q24H [facility] Last Admin: 07/02/24 20:10 Dose: 40 mg Documented By: BEATRIZ Folic Acid (Folic Acid 1 Mg Tablet) 1 mg PO DAILY [facility] Last Admin: 07/02/24 08:20 Dose: 1 mg Documented By: RADHA Gabapentin (Gabapentin 400 Mg Capsule) 800 mg PO TID [facility] Last Admin: 07/02/24 20:10 Dose: 800 mg Documented By: BEATRIZ Hydromorphone HCl (Hydromorphone Hcl 2 Mg/Ml Vial) 2 mg IVPUSH Q4H PRN; Protocol PRN Reason: Pain, Severe (Pain Scale 7-10) Last Admin: 07/03/24 00:17 Dose: 2 mg Documented By: BEATRIZ Hydroxyzine HCl (Hydroxyzine Hcl 25 Mg Tablet) 25 mg PO Q6H PRN PRN Reason: anxiety/restlessness Last Admin: 07/01/24 13:37 Dose: 25 mg Documented By: GIOVANNA Comments: patient requested for feeling anxious Cefazolin Sodium/Dextrose (Ancef) 2 gm in 50 mls @ 100 mls/hr IV Q8H [facility] Last Infusion: 07/03/24 01:01 Dose: Infused Documented By: BEATRIZ Ibuprofen (Ibuprofen 600 Mg Tablet) 600 mg PO Q6H PRN PRN Reason: Pain, Moderate(Pain Scale 4-6) Last Admin: 07/02/24 12:16 Dose: 600 mg Documented By: RADHA Lorazepam (Lorazepam 1 Mg Tablet) 1 mg PO Q6H PRN PRN Reason: anxiety/restlessness Last Admin: 07/03/24 00:25 Dose: 1 mg Documented By: BEATRIZ Magnesium Hydroxide (Milk Of Magnesia 30 Ml Oral.Susp) 30 ml PO DAILY PRN PRN Reason: Constipation Last Admin: 07/01/24 17:40 Dose: 30 ml Documented By: GIOVANNA Comments: patient requested c/o feeling constipated Melatonin (Melatonin 3 Mg Tablet) 6 mg PO BEDTIME PRN PRN Reason: Insomnia Last Admin: 07/02/24 20:11 Dose: 6 mg Documented By: BEATRIZ Methadone HCl (Methadone Hcl 20 Mg/2 Ml Oral.Conc) 70 mg PO DAILY [facility] Last Admin: 07/02/24 08:00 Dose: 70 mg Documented By: RADHA Co-signed By: CONNIE Nicotine (Nicotine 14 Mg Patch.Td24) 14 mg TRANSDERMA DAILY [facility] Last Admin: 07/02/24 08:21 Dose: 14 mg Documented By: RADHA Nicotine Polacrilex (Nicotine Polacrilex 2 Mg Gum) 2 mg BUCCAL Q1H PRN PRN Reason: Nicotine Cravings Last Admin: 08/17/24 15:42 Dose: 2 mg Documented By: RADHA Ondansetron HCl (Ondansetron Hcl 4 Mg/2 Ml Vial) 4 mg IVPUSH Q8H PRN PRN Reason: Nausea and Vomiting Pharmacy Consult (Consult Rx Etoh Phenob Im/Po) 1 each MISCELLANE ONCE PRN; Protocol PRN Reason: Consult order Sodium Chloride (0.9 % Sodium Chloride Flush 3 Ml Syringe) 3 ml IVFLUSH QSHIFT [facility] Last Admin: 07/03/24 00:05 Dose: Not Given Documented By: BEATRIZ Non-Admin Reason: PICC Thiamine HCl (Thiamine Hcl 100 Mg Tablet) 100 mg PO DAILY [facility] Last Admin: 07/02/24 08:20 Dose: 100 mg Documented By: RADHA Labs 07/01/24 11:45 07/01/24 11:45 Microbiology Microbiology Results: Microbiology 06/27/24 09:49 Blood Culture - Final Blood - Venous No growth after 5 days. Assessment and Plan (1) Bacteremia: Status: Acute (2) Diskitis: Status: Acute Plan 44yo M with IDU, AUD, mood disorder presenting with fever + chills and found to have staphylococcal bacteremia sepsis due to Staph aureus bacteremia, MSSA---clinically improving - vanc + cefepime 06/24-06/25, then dapto 06/25 to 06/30 -Kefzol 2 gm 8, starting 06/30 - TTE 06/27 no vegetation, repeat BCx 06/27 1/2 +, BCx 06/28 negative x 48 - ID following - MRI: 1. Findings suspicious for left T11-T12 septic facet arthritis with with periarticular phlegmon and microabscesses in the adjacent left paraspinal soft tissues/musculature. Enhancing phlegmon asymmetrically effaces the left T11-T12 neural foraminal fat along the course of the exiting left T11 nerve root and extends within the left T11-T12 intercostal region. Enhancing epidural phlegmon within the imaged dorsal thoracic spinal canal, most pronounced at T11-T12, where there is a 7 mm focus of nonenhancement suspicious for dorsal epidural abscess, excluded from the [id number] in the axial plane. This contributes to apparent mild to moderate spinal canal stenosis at T11-T12. Findings discussed with [facility] (Fay Beauchamp) on 07/02/24) they advise no intervention, IV abx and monitoring for neuro deficity. Presently doesn't have weakness or numbness in the limb, he feels much better today, stil has left paraspinal pain and tenderness No urinary or stool incontinence -PICC line for correction IV Abx, ID to make final recommendation - polysubstance abuse [fentanyl, cocaine] - methadone per addiction med - prn clonidine, hydroxyzine - HBV immune from prior infection - HCV Ab+, viral load pending - HIV negative Alcohol use disorder - continue phenobarbital taper, thiamine, folic acid KRISTINA - Iron once infection under control VTE ppx - enoxaparin dispo - will need STR for long-term IV ABX Need for inpt: IV Abx for active bacteremia. Quality Stroke Does the patient have a stroke diagnosis?: No VTE Prior VTE?: No VTE Risk Level:: Medical - moderate - high VTE Device Contraindication: Treatment Not Indicated VTE Drug Contraindication: N/A - Med Ordered
[2024-07-03 07:19] VITALS: BP 127/69; PULSE 87; RESP 17; TEMP 36.9; O2SAT 100
[2024-07-03] MEDS: 0.9 % Sodium Chloride Flush 3 ML SYRINGE IVFLUSH ×3 (07:28→19:52)
[2024-07-03] MEDS: methADONE HCl 20 MG/2 ML ORAL.CONC 70 MG PO (08:01)
[2024-07-03] MEDS: Nicotine 14 MG PATCH.TD24 TRANSDERMA (08:06)
[2024-07-03] MEDS: Thiamine HCL 100 MG TABLET PO (08:07)
[2024-07-03] MEDS: Gabapentin 400 MG CAPSULE 800 MG PO ×3 (08:07→19:51)
[2024-07-03] MEDS: Folic Acid 1 MG TABLET PO (08:07)
[2024-07-03] MEDS: Nicotine Polacrilex 2 MG GUM BUCCAL ×2 (08:42→14:30)
[2024-07-03] MEDS: Ibuprofen 600 MG TABLET PO ×2 (08:42→16:15)
[2024-07-03 16:00] VITALS: BP 131/73; PULSE 74; RESP 16; TEMP 36.1; O2SAT 98
[2024-07-03 19:25] VITALS: BP 146/75; PULSE 80; RESP 18; TEMP 36.6; O2SAT 100
[2024-07-03] MEDS: Enoxaparin Sodium 40 MG/0.4 ML SYRINGE SUBCUT (19:51)
[2024-07-04] MEDS: ceFAZolin Sodium/Dextrose,Iso 2 GM/50 ML PIGGYBACK IV ×2 (00:06→07:55)
[2024-07-04] MEDS: HYDROmorphone HCl 2 MG/ML VIAL IVPUSH ×3 (00:09→11:48)
[2024-07-04 04:00] VITALS: BP 134/58; PULSE 86; RESP 18; TEMP 36.4; O2SAT 98
[2024-07-04 07:48] VITALS: BP 137/63; PULSE 74; RESP 18; TEMP 36.4; O2SAT 99
[2024-07-04] MEDS: LORazepam 1 MG TABLET PO ×2 (07:54→14:11)
[2024-07-04] MEDS: Gabapentin 400 MG CAPSULE 800 MG PO ×2 (07:54→14:11)
[2024-07-04] MEDS: Nicotine 14 MG PATCH.TD24 TRANSDERMA (07:54)
[2024-07-04] MEDS: Thiamine HCL 100 MG TABLET PO (07:54)
[2024-07-04] MEDS: Folic Acid 1 MG TABLET PO (07:54)
[2024-07-04] MEDS: methADONE HCl 20 MG/2 ML ORAL.CONC 80 MG PO (07:55)
[2024-07-04] MEDS: 0.9 % Sodium Chloride Flush 3 ML SYRINGE IVFLUSH (07:55)
[2024-07-04] MEDS: Nicotine Polacrilex 2 MG GUM BUCCAL (08:44)
--- NOTE | 2024-07-04 09:04 | HO.PM.IMPN ---
Subjective Subjective Date of Service: 07/04/24 Interval History: f/u on bacteremia, sepsis MRI disckitis and phlegmon No neurological deficit no urinary or stool bladder incontinence afebrile, residual back pain Physical Exam Vital Signs: Vital Signs: Last Vital Signs Temp 97.5 F 07/04/24 07:48 Pulse 74 07/04/24 07:48 Resp 18 07/04/24 07:48 BP 137/63 07/04/24 07:48 Pulse Ox 99 07/04/24 07:48 O2 Del Method Room Air 07/04/24 07:48 O2 Flow Rate 2 06/24/24 18:29 BMI result Body Mass Index 27.9 Const: Other: General: AO X 3, no acute distress Resp: CTA bilateral CVS: S1,S2,RRR GI: +BS, NT, no distention Skin: No rash MSK: no back tenderness or fluctuance Neuro: motor grossly intact, no weakness in the legs, 5/5 strenght, no loss of rectal tone, no urinar incontience, no foot drop Psych: appropriate affect Objective Data Active Medications Acetaminophen (Acetaminophen 325 Mg Tablet) 650 mg PO Q6H PRN PRN Reason: Pain, Mild (Pain Scale 1-3), fever or headache Last Admin: 06/27/24 12:14 Dose: 650 mg Documented By: SD Calcium Carbonate (Calcium Carbonate 750 Mg Tab.Chew) 750 mg PO Q4H PRN PRN Reason: Heartburn Clonidine HCl (Clonidine Hcl 0.1 Mg Tablet) 0.1 mg PO TID PRN; Protocol PRN Reason: Opiate Withdrawal Last Admin: 06/30/24 20:29 Dose: 0.1 mg Documented By: MARIO Enoxaparin Sodium (Enoxaparin Sodium 40 Mg/0.4 Ml Syringe) 40 mg SUBCUT Q24H [facility] Last Admin: 07/03/24 19:51 Dose: 40 mg Documented By: BLAS Folic Acid (Folic Acid 1 Mg Tablet) 1 mg PO DAILY [facility] Last Admin: 07/04/24 07:54 Dose: 1 mg Documented By: MARLIN Gabapentin (Gabapentin 400 Mg Capsule) 800 mg PO TID [facility] Last Admin: 07/04/24 07:54 Dose: 800 mg Documented By: MARLIN Hydromorphone HCl (Hydromorphone Hcl 2 Mg/Ml Vial) 2 mg IVPUSH Q4H PRN; Protocol PRN Reason: Pain, Severe (Pain Scale 7-10) Last Admin: 07/04/24 07:52 Dose: 2 mg Documented By: MARLIN Hydroxyzine HCl (Hydroxyzine Hcl 25 Mg Tablet) 25 mg PO Q6H PRN PRN Reason: anxiety/restlessness Last Admin: 07/01/24 13:37 Dose: 25 mg Documented By: GIOVANNA Comments: patient requested for feeling anxious Cefazolin Sodium/Dextrose (Ancef) 2 gm in 50 mls @ 100 mls/hr IV Q8H [facility] Stop: 08/11/24 11:00 Last Infusion: 07/04/24 08:41 Dose: Infused Documented By: MARLIN Ibuprofen (Ibuprofen 600 Mg Tablet) 600 mg PO Q6H PRN PRN Reason: Pain, Moderate(Pain Scale 4-6) Last Admin: 07/03/24 16:15 Dose: 600 mg Documented By: RADHA Lorazepam (Lorazepam 1 Mg Tablet) 1 mg PO Q6H PRN PRN Reason: anxiety/restlessness Last Admin: 07/04/24 07:54 Dose: 1 mg Documented By: MARLIN Magnesium Hydroxide (Milk Of Magnesia 30 Ml Oral.Susp) 30 ml PO DAILY PRN PRN Reason: Constipation Last Admin: 07/01/24 17:40 Dose: 30 ml Documented By: GIOVANNA Comments: patient requested c/o feeling constipated Melatonin (Melatonin 3 Mg Tablet) 6 mg PO BEDTIME PRN PRN Reason: Insomnia Last Admin: 07/02/24 20:11 Dose: 6 mg Documented By: BEATRIZ Methadone HCl (Methadone Hcl 20 Mg/2 Ml Oral.Conc) 80 mg PO DAILY [facility] Last Admin: 07/04/24 07:55 Dose: 80 mg Documented By: MARLIN Co-signed By: GIOVANNA Nicotine (Nicotine 14 Mg Patch.Td24) 14 mg TRANSDERMA DAILY [facility] Last Admin: 07/04/24 07:54 Dose: 14 mg Documented By: MARLIN Nicotine Polacrilex (Nicotine Polacrilex 2 Mg Gum) 2 mg BUCCAL Q1H PRN PRN Reason: Nicotine Cravings Last Admin: 07/04/24 08:44 Dose: 2 mg Documented By: MARLIN Ondansetron HCl (Ondansetron Hcl 4 Mg/2 Ml Vial) 4 mg IVPUSH Q8H PRN PRN Reason: Nausea and Vomiting Pharmacy Consult (Consult Rx Etoh Phenob Im/Po) 1 each MISCELLANE ONCE PRN; Protocol PRN Reason: Consult order Sodium Chloride (0.9 % Sodium Chloride Flush 3 Ml Syringe) 3 ml IVFLUSH QSHIFT [facility] Last Admin: 07/04/24 07:55 Dose: 3 ml Documented By: MARLIN Thiamine HCl (Thiamine Hcl 100 Mg Tablet) 100 mg PO DAILY [facility] Last Admin: 07/04/24 07:54 Dose: 100 mg Documented By: MARLIN Labs 07/01/24 11:45 07/01/24 11:45 Microbiology Microbiology Results: Microbiology 06/28/24 10:06 Blood Culture - Final Blood - Venous No growth after 5 days. 06/28/24 10:06 Blood Culture - Final Blood - Venous No growth after 5 days. Assessment and Plan (1) Bacteremia: Status: Acute (2) Diskitis: Status: Acute Plan 44yo M with IDU, AUD, mood disorder presenting with fever + chills and found to have staphylococcal bacteremia sepsis due to Staph aureus bacteremia, MSSA---clinically improving - vanc + cefepime 06/24-06/25, then dapto 06/25 to 06/30 -Kefzol 2 gm 8, starting 06/30, ID recommend 6 weeks, ending august 11 - TTE 06/27 no vegetation, repeat BCx 06/27 1/2 +, BCx 06/28 negative > 48 hrs - MRI: 1. Findings suspicious for left T11-T12 septic facet arthritis with with periarticular phlegmon and microabscesses in the adjacent left paraspinal soft tissues/musculature. Enhancing phlegmon asymmetrically effaces the left T11-T12 neural foraminal fat along the course of the exiting left T11 nerve root and extends within the left T11-T12 intercostal region. Enhancing epidural phlegmon within the imaged dorsal thoracic spinal canal, most pronounced at T11-T12, where there is a 7 mm focus of nonenhancement suspicious for dorsal epidural abscess, excluded from the [id number] in the axial plane. This contributes to apparent mild to moderate spinal canal stenosis at T11-T12. Findings discussed with [facility] NeuroSurger (Fay Beauchamp) on 07/02/24) they advise no intervention, IV abx and monitoring for neuro deficity. Presently doesn't have weakness or numbness in the limb, he feels much better today, stil has left paraspinal pain and tenderness No urinary or stool incontinence -PICC line for mcc IV Abx, ID to make final recommendation -check routine labs polysubstance abuse [fentanyl, cocaine] - methadone per addiction med - prn clonidine, hydroxyzine - HBV immune from prior infection - HCV Ab+, viral load pending - HIV negative Alcohol use disorder - continue phenobarbital taper, thiamine, folic acid KRISTINA - Iron once infection under control VTE ppx - enoxaparin dispo - will need STR for long-term IV ABX Need for inpt: IV Abx for active bacteremia. Quality Stroke Does the patient have a stroke diagnosis?: No VTE Prior VTE?: No VTE Risk Level:: Medical - moderate - high VTE Device Contraindication: Treatment Not Indicated VTE Drug Contraindication: N/A - Med Ordered
[2024-07-04 09:27] LABS: Hematocrit 32.4 % (42.0-52.0); Hemoglobin 10.3 g/dl (14.0-18.0); Mean Corpuscular HGB Conc 31.8 g/dl (31.0-36.0); Mean Corpuscular Hemoglobin 21.2 pg (27.0-33.0); Mean Corpuscular Volume 66.8 fL (80.0-98.0); Mean Platelet Volume 9.6 fL (9.4-12.4); Platelet Count 657 X10*3/uL (160-400); Red Blood Count 4.85 X10*6/uL (4.60-5.80); Red Cell Distribution Width 18.4 % (11.0-16.0); White Blood Count 8.3 X10*3/uL (4.8-10.8)
[2024-07-04 09:50] LABS: Anion Gap 14 (12-20); Blood Urea Nitrogen 13 mg/dL (9-16); Calcium 9.4 mg/dL (8.4-10.2); Carbon Dioxide 27 mmol/L (22-29); Chloride 98 mmol/L (96-108); Creatinine Clr Calc Pharmacy 141.4; Estimated Glomerular Filt Rate > 60; Glucose Random 168 mg/dL (60-115); Potassium 4.4 mmol/L (3.3-5.1); Sodium 135 mmol/L (135-145)
[2024-07-04] MEDS: Ibuprofen 600 MG TABLET PO (10:56)
--- NOTE | 2024-07-04 11:36 | MHC.CM.PN ---
[facility] last dose letter sent via [employer]
--- NOTE | 2024-07-04 11:56 | P.DS_ITS ---
DS: Providers Provider Date of Service: 07/04/24 Date of admission: 06/24/24 21:13 Primary care physician: Unknown Physician Consults: 06/24/24 21:14 Addiction Medicine Routine Consulting Provider: Addiction Covering Reason for consultation: alcohol and IV drug use disorder 06/25/24 01:47 Consult to Wound Care Routine Reason for consultation: abrasion/skin tear to right heel, large scab to right knee. 06/25/24 09:13 Consult to Infectious Diseases Routine Consulting Provider: [facility] Reason for consultation: gram positive bacteremia, IVDA 06/25/24 17:50 Consult to Infectious Diseases Routine Consulting Provider: [facility] Reason for consultation: DAPTOMYCIN DS: Diagnosis Discharge Diagnosis (1) Bacteremia: Status: Acute (2) Diskitis: Status: Acute DS: Summary Hospital Course Hospital Course: HE WAS ALL SET TO GO SNF FOR USP ANTIBIOTICS FOR BACTEREMIA AND DISKITIS BUT LAST MINUTES HE DECIDED THAT HE HAS TO GO SOMEWHERE TO GET HIS BELONGINGS THAT HE'S HOMELESS AND HAD TO GO GET HIS THINGS. HE UNDERSTANDS THE RISKS OF LEAVING AMA TO BE SUBSTANTIAL AND RISKS HIS WITH THE ACTIVE INFECTION, I COULD NOT CONVINCE HIM OTHERWISE, HE UNDERSTOOD THE RISKS AND WAS ABLE TO REPEAT IN HIS OWN WORDS. AND PROCEEDED TO SING AMA, CLAIMING HE WILL COME BACK TO THE ED. UNFORTUNATELY THE PICC LINE WHICH WAS RECENTLY INSERTED HAD TO BE REMOVED GIVEN HISTORY OF IVDA. ORAL ANTIBIOTICS ARE NOT EFFECTIVE OR STANDARD OF TREATMENT PER ID, AND PATIENT WAS ALSO TOLD THIS, HE UNDERSTAND HE NEEDS THE IV ANTIBIOTICS FOR 6 WEEKS AND VOW TO RETURN TO THE ED OR ANOTHER HOSPITAL TO GET THE NECESSARY CAR admission hpi Chief Complaint: Fevers and chills This is a 44-year-old male with pertinent history of IV drug use disorder, alcohol use disorder, mood disorder who presents to the emergency department for evaluation of fevers and chills. Unable to obtain history from the patient as he is asleep and not willing to answer questions. History obtained with the help of ER provider and chart review. Upon initial presentation, patient was walking naked in the ER room back and forth and was agitated as per ER physician. Patient stated that he last used IV fentanyl 1 day prior to presentation. He last used alcohol 1 day prior to presentation. Does have a history of alcohol withdrawal including alcohol withdrawal seizures. Denies trauma. No chest pain. Unable to obtain review of systems. Hospital course: 44yo M with IDU, AUD, mood disorder presenting with fever + chills and found to have staphylococcal bacteremia sepsis due to Staph aureus bacteremia, MSSA---clinically improving - vanc + cefepime 06/24-06/25, then dapto 06/25 to 06/30 -Kefzol 2 gm 8, starting 06/30, ID recommend 6 weeks, ending august 11 - TTE 06/27 no vegetation, repeat BCx 06/27 1/2 +, BCx 06/28 negative > 48 hrs - MRI: 1. Findings suspicious for left T11-T12 septic facet arthritis with with periarticular phlegmon and microabscesses in the adjacent left paraspinal soft tissues/musculature. Enhancing phlegmon asymmetrically effaces the left T11-T12 neural foraminal fat along the course of the exiting left T11 nerve root and extends within the left T11-T12 intercostal region. Enhancing epidural phlegmon within the imaged dorsal thoracic spinal canal, most pronounced at T11-T12, where there is a 7 mm focus of nonenhancement suspicious for dorsal epidural abscess, excluded from the [id number] in the axial plane. This contributes to apparent mild to moderate spinal canal stenosis at T11-T12. Findings discussed with [facility] NeuroSurger (Fay Beauchamp) on 07/02/24) they advise no intervention, IV abx and monitoring for neuro deficity. Presently doesn't have weakness or numbness in the limb, he feels much better today, stil has left paraspinal pain and tenderness No urinary or stool incontinence -PICC line for shelter IV Abx, ID to make final recommendation -check routine labs polysubstance abuse [fentanyl, cocaine] - methadone per addiction med - prn clonidine, hydroxyzine - HBV immune from prior infection - HCV Ab+, viral load pending - HIV negative Alcohol use disorder - continue phenobarbital taper, thiamine, folic acid KRISTINA - Iron once infection under control VTE ppx - enoxaparin dispo - will need STR for long-term IV ABX Time Attestation Discharge Coordination Time (in mins): 45 Quality: Safe Use of Opioids Does Pt have an Active Cancer Diagnosis on the Problem List?: No Quality: Stroke Does the patient have a stroke diagnosis?: No Physical Exam Vital Signs: Vital Signs: Last Vital Signs Temp 97.5 F 07/04/24 07:48 Pulse 74 07/04/24 07:48 Resp 18 07/04/24 07:48 BP 137/63 07/04/24 07:48 Pulse Ox 99 07/04/24 07:48 O2 Del Method Room Air 07/04/24 07:48 O2 Flow Rate 2 06/24/24 18:29 BMI result Body Mass Index 27.9 DS: Data Data Completed and Pending Completed studies during hospitalization [Text1]: Procedures Detoxification Services for Substance Abuse Treatment (08/17/23) Drainage of Left Upper Extremity, Open Approach (09/22/23) Labs on day of discharge: Laboratory Results - last 24 hr 07/04/24 09:13 WBC 8.3 RBC 4.85 Hgb 10.3 L Hct 32.4 L MCV 66.8 L MCH 21.2 L MCHC 31.8 RDW 18.4 H Plt Count 657 H MPV 9.6 Absolute Nucleated RBC 0.000 Nucleated RBC % (auto) 0.0 Sodium 135 Potassium 4.4 Chloride 98 Carbon Dioxide 27 Anion Gap 14 BUN 13 Creatinine 0.76 Estim Creat Clear Calc 141.4 Estimated GFR > 60 Random Glucose 168 H Calcium 9.4 Discharge Plan Discharge Anticipated Discharge Date/Time: 07/04/24 11:57 Patient Disposition: Left Against Medical Advice Discharge Diagnosis: Disckitis, Bacteremia Referrals: [facility] [Other] - 1 Week Physician,Unknown J [Primary Care Provider] - 1 Week Discharge Medications: New methadone [Methadose] 10 mg/mL Concentrate 80 mg PO DAILY Qty: 1000 0RF Rx Instructions: Partial Fill upon patient request. acetaminophen 325 mg Tablet 650 mg PO Q6H PRN (Reason: Pain, Mild (Pain Scale 1-3), fever or headache) Qty: 30 0RF nicotine 14 mg/24 hr Patch 24 Hour 14 mg transdermal DAILY Qty: 30 0RF ibuprofen 600 mg Tablet 600 mg PO Q6H PRN (Reason: Pain, Moderate(Pain Scale 4-6)) Qty: 30 0RF melatonin 3 mg Tablet 6 mg PO BEDTIME PRN (Reason: Insomnia) Qty: 30 0RF Continued gabapentin 800 mg tablet 800 mg PO TID Discontinued methadone [Methadose] 10 mg/mL concentrate 30 mg PO DAILY Rx Instructions: Pt states they use it, but will not disclose which clinic they go to. Discharge Orders: Discharge Order (Routine); Ordered 07/04/24 Ordered By: Shilo March Diet: Advance to usual diet Activity on Discharge: As tolerated Print Language: Yoruba Care Plan Goals: recovery from back abscess Health Concerns: Diskitis back, bacteremia, sepsis Plan of Treatment: IV antibiotics as recommended Assessment: see above Discharge Date/Time: 07/04/24 15:47
--- NOTE | 2024-07-04 12:57 | MHC.CM.PN ---
pt to get midline to be dcd later today back to [facility] at 6:30
--- NOTE | 2024-07-04 13:04 | MHC.RECOVRN ---
AUDIT-C Brief Intervention Pt had positive screen for unhealthy alcohol use on admission, subsequently met with t/w to discuss alcohol use and recovery supports/options. Pt voices concern regarding alcohol use and is aware that drinking at unhealthy levels is known to increase risk of alcohol related health problems. Pt reports more than 3 drinks daily for an unknown amount of time. Pt expresses how alcohol use has impacted health, including negative impact on overall physical wellbeing. Discussed risk reduction strategies including drinking below the recommended limit. Provided pt with written resources including information on inpatient and outpatient treatment, MAY, harm reduction, and recovery coaching. Pt plans to complete IV antibiotics and hopes to go into sober living. Pt provided with t/w contact information if questions or concerns arise. Denies other questions or concerns at this time.
--- NOTE | 2024-07-04 14:54 | MHC.CM.PN ---
pt has decided to leave ama
--- NOTE | 2024-07-04 15:15 | PC.NURSE ---
Picc line remove by Devon Steven from surgical day stay . Tip was intact measured at 42 cm .
--- NOTE | 2024-07-04 15:25 | PC.NURSE ---
Pt made aware of discharge to [facility] for STR. States he cannot go there today. He has irreplacable belongings stashed somewhere and needs to get them before he goes to [facility]. Notified pt that he is unable to leave and come back and that if he leaves its AMA and will lose his STR bed. Pt insists on leaving. Dr. March notified and in to assessment counselor patient. Order for PICC line removal. Pt becoming more impatient, anxious and belligerent waiting for PICC removal. cord splicer contacted Mckenna Harris who was able to get assistance with removal of PICC. Pt counseled on risks of leaving AMA and when to return to ED.
--- NOTE | 2024-07-07 09:08 | P.CDIM_ITS ---
PROVIDER RESPONSE TEXT: To clarify, the appropriate diagnosis supported by the clinical indicators: Acute osteomyelitis QUERY TEXT: PHYSICIAN'S DOCUMENTATION REQUEST Date of Query: 07/01/2024 12:32 PM EDT Patient Name: Mark Mays Admit Date: 06/25/2024 Dear Shilo March MD, A review of the medical record indicates additional documentation may be needed. Please review below and update the documentation according Clinical Indicators: Event note dated 06/29 - MRI spine shows T11-T12 septic arthritis with periarticular phlegmon and micr o-abscesses in the adjacent left paraspinal soft tissues/musculature and L4-L5 discitis/osteomyelitis. Based on the above, please clarify in the Progress Notes further specificity regarding the acuity of Osteomyelitis noted in the Event note 06/29 for clarity of documentation: Acute osteomyelitis Subacute osteomyelitis Chronic osteomyelitis Chronic multifocal osteomyelitis Other (explain) Clinically unable to determine (explain) Thank you, Genny Vazquez, CCS, CDIS Use of terms such as suspected, likely, concern for, or probable (associated with a specific diagnosi s that is being evaluated, monitored, or treated as if it exists) are acceptable and can be coded in the inpatient se tting, when documented at the time of discharge. Please use your independent medical judgment in providing your response. THIS QUERY IS PART OF THE PERMANENT MEDICAL RECORD
== END 2024-07-04 15:47 | disposition left against medical advice (07) | DRG 720 ==
LOC: HO.ED 21:23 → HO.EDOVER 21:27 → HO.S3 22:28
PROVIDERS: Family Medicine; Admitting Provider Student in an Organized Health Care Education/Training Program; Emergency Provider Emergency Medicine; Visit Provider Internal Medicine
DX: A41.01 Sepsis due to Methicillin susceptible Staphylococcus aureus (principal); G93.41 Metabolic encephalopathy; G92.8 Other toxic encephalopathy; F17.210 Nicotine dependence, cigarettes, uncomplicated; F10.239 Alcohol dependence with withdrawal, unspecified; D50.9 Iron deficiency anemia, unspecified; M46.26 Osteomyelitis of vertebra, lumbar region; M46.46 Discitis, unspecified, lumbar region; F11.23 Opioid dependence with withdrawal; M46.54 Other infective spondylopathies, thoracic region; F19.90 Other psychoactive substance use, unspecified, uncomplicated; F43.10 Post-traumatic stress disorder, unspecified; Z20.822 Contact with and (suspected) exposure to COVID-19; Z71.6 Tobacco abuse counseling; Y90.2 Blood alcohol level of 40-59 mg/100 ml; Z59.02 Unsheltered homelessness; Z79.899 Other long term (current) drug therapy
CPT/HCPCS: 0241U; 36415; 36573; 70450; 71045; 71275; 72158; 74177; 80048; 80053; 80076; 80202; 80307; 81001; 82550; 82803; 83540; 83605; 83690; 83735; 84484; 85025; 85027; 85652; 86140; 86704; 86706; 86803; 87040; 87077; 87147; 87186; 87205; 87340; 87389; 87522; 92950; 93005; 93306; 99285; A9585; C1751; J0131; J0690; J0692; J0878; J1170; J1650; J1790; J1885; J2270; J2560; J3370; J3371; J3411; Q9967

== ENCOUNTER → 2024-06-24 14:13 | Outpatient (BNV) | payer MEDICAID, SELFPAY | PROVIDERS: Admitting Provider Student in an Organized Health Care Education/Training Program; Emergency Provider Emergency Medicine; Visit Provider Internal Medicine Cardiovascular Disease | DX: R07.9 Chest pain, unspecified (principal) | CPT/HCPCS: 93010 ==

== ENCOUNTER 2024-06-24 21:13 | Outpatient (BNV) | payer MEDICAID, SELFPAY | END 2024-06-27 07:00 | PROVIDERS: Admitting Provider Student in an Organized Health Care Education/Training Program; Emergency Provider Emergency Medicine; Visit Provider Internal Medicine | DX: I51.89 Other ill-defined heart diseases (principal) | CPT/HCPCS: 93306 ==

== ENCOUNTER → 2024-06-24 21:13 | Outpatient (BNV) | payer MEDICAID, SELFPAY | PROVIDERS: Admitting Provider Student in an Organized Health Care Education/Training Program; Emergency Provider Emergency Medicine; Visit Provider Nurse Practitioner Psychiatric/Mental Health | DX: F11.90 Opioid use, unspecified, uncomplicated (principal) | CPT/HCPCS: 99221; 99231; 99499 ==

== ENCOUNTER → 2024-06-24 21:13 | Outpatient (BNV) | payer MEDICAID, SELFPAY | PROVIDERS: Admitting Provider Student in an Organized Health Care Education/Training Program; Emergency Provider Emergency Medicine; Visit Provider Student in an Organized Health Care Education/Training Program | DX: R78.81 Bacteremia (principal); M46.40 Discitis, unspecified, site unspecified | CPT/HCPCS: 99223; 99232; 99233; 99239 ==

== ENCOUNTER → 2024-06-24 21:13 | Outpatient (BNV) | payer MEDICAID, SELFPAY | PROVIDERS: Admitting Provider Student in an Organized Health Care Education/Training Program; Emergency Provider Emergency Medicine; Visit Provider Internal Medicine | DX: D72.829 Elevated white blood cell count, unspecified (principal); R50.9 Fever, unspecified; R78.81 Bacteremia | CPT/HCPCS: 99222 ==

== ENCOUNTER 2024-07-05 01:28 | Inpatient (IN) | payer MEDICAID, SELFPAY ==
[2024-07-05] VITALS (8 sets, daily range): BP systolic 113–142; BP diastolic 61–80; PULSE 76–98; RESP 14–18; TEMP 36.7–37; O2SAT 96–99; BMI 27.3
--- NOTE | 2024-07-05 05:44 | ED_ITS ---
HPI - General Adult General Chief complaint: Extremity Problem Stated complaint: BACK PAIN Time Seen by Provider: 07/05/24 05:40 Source: patient Mode of arrival: ambulatory Limitations: no limitations History of Present Illness ED Provider: RADHA PAZ narrative: 44 yo male with PMH of IVDA just seen and treated here with IV daptomycin and IV anceft for MSSA bacteremia and diskitis. He chose to leave AMA yesterday to take care of some things. He also used drugs when he left. He swears he did not inject. He returns to the ED with c/o back pain and wants to be treated now. At this time will start back on his methadone, start ancef, repeat cultures and admit to hospitalist. MD complaint: bacteremia, diskitis Onset (ago): week(s) (10) Location: back Radiation: non-radiation Severity: moderate Quality: aching Pain Consistency: constant Exacerbating factors: movement Associated symptoms: denies other symptoms Treatments prior to arrival: none Related Data Home Medications ?Medication ?Instructions ?Recorded ?Confirmed gabapentin 800 mg tablet 800 mg PO TID 06/24/24 06/25/24 methadone 10 mg/mL oral 30 mg PO DAILY 06/25/24 concentrate (Methadose) Previous Rx's ?Medication ?Instructions ?Recorded methadone 10 mg/mL oral 80 mg (8 mL) PO DAILY #1,000 mL 07/04/24 concentrate (Methadose) Allergies Allergy/AdvReac Type Severity Reaction Status Date / Time fish derived [FISH] Allergy Unknown UNKNOWN - Verified 07/05/24 01:40 NOT ANAPHYLAXIS PER PATIENT trazodone AdvReac Severe priapr Verified 07/05/24 01:40 Review of Systems 2 Review of Systems: Constitutional : No Weight loss, No Fever, No Chills, ENT/Mouth : No Hearing loss, No Ear Pain, No Nasal Congestion, No Sinus Pain, No Hoarseness, No sore throat, No Rhinorrhea, No Swallowing Difficulty Cardiovascular : No Chest Pain, No SOB Respiratory : No Cough, No Dyspnea Gastrointestinal : No Nausea, No Vomiting, No Diarrhea, No abdominal Pain, No Hematochezia, No Melena Genitourinary : No Dysuria, No Urinary Frequency, No Hematuria, No Urinary Incontinence, Musculoskeletal : positive back pain Skin : No Skin Lesions, No rash Neuro : No Weakness, No Numbness, No Paresthesias, no loss of bowel or bladder incontinence, no saddle anesthesia all other systems reviewed and are negative [facility] Past Medical History Attestation statement: The following information was validated with the patient. Source: old records reviewed Medical History Bacteremia Depression Polysubstance abuse IVDU (intravenous drug user) Alcohol dependence Recurrent major depression-severe PTSD (post-traumatic stress disorder) PTSD (post-traumatic stress disorder) Hep C w/o coma, chronic Surgical History History of surgery on arm Social History Social History Household Members: None Household Members Other:: unable to obtain information from patient d/t sedation. Housing: Homeless Do you presently have visiting nurse or other home services: No Alcohol intake: current Alcohol intake frequency: 3 or more drinks per day Alcohol type: beer and hard liquor Comment: pt refused bed alarm Patient Tobacco Use Status: Tobacco use Unknown Tobacco use type: Cigarette Cigarette Packs Per Day: 2 Cigarettes Per Day: 40.0 Years Smoked: unknown e-Cigarette/Vaping Use: Currently Using Second Hand Smoke Exposure: No Substance Use Type: Crack/Cocaine and Heroin Advance Directives: No Advance Directives Information Provided: Yes Do you have a plan to hurt others: No Plan service: No Sexual orientation: Straight/Heterosexual Physical Exam ED Vital Signs: Vital Signs - 24 hr 07/05/24 01:39 07/05/24 05:41 Temperature 98.6 F 98.1 F Pulse Rate 96 97 Respiratory Rate 18 16 Blood Pressure 125/74 127/79 Pulse Oximetry 99 97 Oxygen Delivery Method Room Air Room Air BMI result Body Mass Index 27.3 Appearance: Alert. Oriented X3. No acute distress. Eyes: Pupils equal, round and reactive to light. ENT: Pharynx normal. Neck: Normal inspection. Neck supple. CVS: Normal heart rate and rhythm. Pulses normal. Respiratory: No respiratory distress. Breath sounds normal. Abdomen: Soft and nontender. Back: ttp along upper back area seems to be moving easily came in with backpack Skin: Skin warm and dry. Normal skin color. Normal skin turgor. Extremities: No lower extremity edema. No calf ttp Neuro: Oriented X 3. No motor deficit. No sensory deficit. Medications Administered Discontinued Medications Generic Name Dose Route Start Last Admin Trade Name Palmira PRN Reason Stop Dose Admin Cefazolin Sodium/Dextrose 2 gm in 50 mls @ 100 mls/hr 07/05/24 05:41 07/05/24 06:05 Ancef IV 07/05/24 06:10 100 mls/hr ONCE ONE Administration Medical Decision Making Medical Decision Making [facility] Narrative: 44 yo male with PMH of IVDA just seen and treated here with IV daptomycin and IV anceft for MSSA bacteremia and diskitis here with c/o wanting treatment at this time will obtain labs, start on ancef and admit to hospital given his hx will need PICC placement and repeat placement search. Hospitalist aware agrees to admit. Differential Diagnosis Differential Diagnoses: The differential diagnosis associated with the presentation includes bacteremia, diskitis Admission/Observation Consideration of admission/observation: Escalation of care including admission/observation considered admit for IV antibiotics Consult Healthcare Provider Management of the patient was discussed with: Hospitalist (will admit) Lab Data [facility] Lab Attestation statement: I reviewed the patient's lab results. 07/05/24 05:57 07/05/24 05:57 Labs: Lab Results 07/05/24 07/05/24 Range/Units 05:57 06:09 WBC 12.0 H (4.8-10.8) X10*3/uL RBC 4.36 L (4.60-5.80) X10*6/uL Hgb 9.1 L (14.0-18.0) g/dl Hct 28.5 L (42.0-52.0) % MCV 65.4 L (80.0-98.0) fL MCH 20.9 L (27.0-33.0) pg MCHC 31.9 (31.0-36.0) g/dl RDW 17.7 H (11.0-16.0) % Plt Count 551 H (160-400) X10*3/uL MPV 9.3 L (9.4-12.4) fL Sodium 134 L (135-145) mmol/L Potassium 4.2 (3.3-5.1) mmol/L Chloride 98 (96-108) mmol/L Carbon Dioxide 26 (22-29) mmol/L Anion Gap 14 (12-20) BUN 11 (9-16) mg/dL Creatinine 0.67 (0.5-1.4) mg/dL Estim Creat Clear Calc 143.7 Estimated GFR > 60 Random Glucose 103 (60-115) mg/dL Lactic Acid 0.9 (0.5-2.0) mmol/L Calcium 9.5 (8.4-10.2) mg/dL Magnesium 2.1 (1.6-2.6) mg/dL Total Bilirubin 1.1 H (0.0-1.0) mg/dL Direct Bilirubin 0.7 H (0.0-0.5) mg/dL AST 64 H (5-37) U/L ALT 51 H (0-40) U/L Alkaline Phosphatase 77 (39-117) U/L Total Protein 8.0 (6.5-8.0) g/dL Albumin 3.6 (3.5-5.0) g/dL Urine Opiates Screen POSITIVE H (Not Detect) Ur Buprenorphine Scrn Not Detected (Not Detect) ng/mL Ur Oxycodone Screen Not Detected (Not Detect) ng/mL Urine Methadone Screen Positive H (Not Detect) ng/mL Urine Fentanyl Screen POSITIVE H (Not Detect) Ur Barbiturates Screen POSITIVE H (Not Detect) Ur Phencyclidine Scrn Not Detected (Not Detect) Ur Amphetamines Screen Not Detected (Not Detect) U Benzodiazepines Scrn Not Detected (Not Detect) Urine Cocaine Screen POSITIVE H (Not Detect) U Marijuana (THC) Screen Not Detected (Not Detect) Ethyl Alcohol < 10 mg/dL External Record Review External record reviewed: Inpatient record Discharge Plan Discharge Clinical Impression: Bacteremia, Diskitis Patient Disposition: Admitted As Inpatient Prescriptions: No Action gabapentin 800 mg tablet 800 mg PO TID methadone [Methadose] 10 mg/mL concentrate 30 mg PO DAILY Rx Instructions: Pt states they use it, but will not disclose which clinic they go to. methadone [Methadose] 10 mg/mL Concentrate 80 mg PO DAILY Qty: 1000 0RF Rx Instructions: Partial Fill upon patient request. Print Language: [place]
[2024-07-05 06:04] LABS: Basophils Absolute Auto 0.1 X10*3/uL (0.0-0.2); Basophils Percent Auto 0.9 % (0-2); Eosinophils Absolute Auto 0.1 X10*3/uL (0.0-0.4); Eosinophils Percent Auto 0.9 % (0-4); Hematocrit 28.5 % (42.0-52.0); Hemoglobin 9.1 g/dl (14.0-18.0); Imm Gran Abs Auto 0.07 X10*3/uL (0.00-0.03); Imm Gran Pct Auto 0.6 % (0.0-0.4); Lymphocytes Absolute Auto 3.2 X10*3/uL (1.2-4.9); Lymphocytes Percent Auto 26.4 % (20-40); Mean Corpuscular HGB Conc 31.9 g/dl (31.0-36.0); Mean Corpuscular Hemoglobin 20.9 pg (27.0-33.0); Mean Corpuscular Volume 65.4 fL (80.0-98.0); Mean Platelet Volume 9.3 fL (9.4-12.4); Monocytes Absolute Auto 1.7 X10*3/uL (0.1-1.2); Monocytes Percent Auto 14.1 % (2-11); Neutrophils Absolute Auto 6.9 x10*3/uL (2.0-8.3); Neutrophils Percent Auto 57.1 % (45-73); Platelet Count 551 X10*3/uL (160-400); Red Blood Count 4.36 X10*6/uL (4.60-5.80); Red Cell Distribution Width 17.7 % (11.0-16.0); SCAN SMEAR FLAG 1
[2024-07-05] MEDS: ceFAZolin Sodium/Dextrose,Iso 2 GM/50 ML PIGGYBACK IV ×3 (06:05→23:28)
[2024-07-05 06:06] LABS: MANUAL DIFF FLAG SCAN
--- NOTE | 2024-07-05 06:11 | PC.NURSE ---
20gIV placed in the left wrist as well as in the right forearm - both access' patent/intact. wrapped w/ curex gauze for safety precautions. labs obtained/sent to lab. drug screen urine obtained/sent to lab. abx administered per provider order. plan of care ongoing.
[2024-07-05 06:17] LABS: Lactic Acid 0.9 mmol/L (0.5-2.0)
--- NOTE | 2024-07-05 06:26 | PM.IMHP ---
History of Present Illness Date of Service: 07/05/24 Chief Complaint: Infection This is a 44-year-old male with pertinent history of IV drug use disorder, alcohol use disorder, mood disorder presents to the emergency department for back pain and need for antibiotics. Patient was admitted on 06/24 and found to have MSSA bacteremia with thoracic septic arthritis with phlegmon and lumbar discitis/osteomyelitis. Plan was for 6 weeks of IV cefazolin as per Infectious Disease. Patient left AMA on 07/04. Patient does admit that he snorted a bag of fentanyl while he was gone. He returned as he states that he was told that he needs IV antibiotics and for back pain. Apart from back pain, denies any new symptoms. No fever, chills, chest discomfort, palpitations, shortness of breath, abdominal pain, changes in urinary or bowel habits. States he did not drink alcohol. In the emergency department, blood cultures obtained and patient was given IV Ancef Review of Systems Constitutional: Constitutional: Reports no additional constitutional complaints Cardiovascular: Cardiovascular: Reports no additional cardiovascular complaints Respiratory: Respiratory: Reports no additional respiratory complaints Gastrointestinal: Gastrointestinal: Reports no additional gastrointestinal complaints Genitourinary: Genitourinary: Reports no additional male genitourinary complaints [facility] Medical History Bacteremia Depression Polysubstance abuse IVDU (intravenous drug user) Alcohol dependence Recurrent major depression-severe PTSD (post-traumatic stress disorder) PTSD (post-traumatic stress disorder) Hep C w/o coma, chronic Pertinent family history: No family history of early CAD Surgical History History of surgery on arm Social History Household Members: None Household Members Other:: unable to obtain information from patient d/t sedation. Housing: Homeless Do you presently have visiting nurse or other home services: No Alcohol intake: current Alcohol intake frequency: 3 or more drinks per day Alcohol type: beer and hard liquor Comment: pt refused bed alarm Patient Tobacco Use Status: Tobacco use Unknown Tobacco use type: Cigarette Cigarette Packs Per Day: 2 Cigarettes Per Day: 40.0 Years Smoked: unknown e-Cigarette/Vaping Use: Currently Using Second Hand Smoke Exposure: No Substance Use Type: Crack/Cocaine and Heroin Advance Directives: No Advance Directives Information Provided: Yes Do you have a plan to hurt others: No Plan service: No Sexual orientation: Straight/Heterosexual Meds Allergies Allergy/AdvReac Type Severity Reaction Status Date / Time fish derived [FISH] Allergy Unknown UNKNOWN - Verified 07/05/24 01:40 NOT ANAPHYLAXIS PER PATIENT trazodone AdvReac Severe priapr Verified 07/05/24 01:40 Active Medications: Current Medications Methadone HCl (Methadone Hcl 20 Mg/2 Ml Oral.Conc) 80 mg PO ONCE ONE Stop: 07/05/24 06:07 Home Medications ?Medication ?Instructions ?Recorded ?Confirmed ?Last Taken ?Type gabapentin 800 mg tablet 800 mg PO TID 06/24/24 06/25/24 Unknown History methadone 10 mg/mL oral 30 mg PO DAILY 06/25/24 Unknown History concentrate (Methadose) Physical Exam Vital Signs and Narrative: Vital Signs: Last Vital Signs Temp 98.1 F 07/05/24 05:41 Pulse 97 07/05/24 05:41 Resp 16 07/05/24 05:41 BP 127/79 07/05/24 05:41 Pulse Ox 97 07/05/24 05:41 O2 Del Method Room Air 07/05/24 05:41 BMI result Body Mass Index 27.3 Middle-aged male lying in bed in no distress Neck supple, no JVD Regular rate and rhythm, S1-S2 heard Regular breath sounds bilaterally, no wheezing or crackles appreciated Abdomen soft nontender, no guarding, no rigidity Patient is awake, alert and oriented to self, place, time and person ; no focal motor deficit Psych: Normal mood Extremities with track lee Results Labs 07/05/24 05:57 07/05/24 05:57 Labs: Laboratory Results - last 24 hr 07/05/24 05:57 MCV 65.4 L MCH 20.9 L MCHC 31.9 RDW 17.7 H Plt Count 551 H MPV 9.3 L Lactic Acid 0.9 Assessment and Plan (1) Bacteremia: Status: Acute (2) Diskitis: Status: Acute Plan This is a 44-year-old male with pertinent history of IV drug use disorder, alcohol use disorder, mood disorder presents to the emergency department for back pain and need for antibiotics. #. Sepsis due to MSSA bacteremia with thoracic septic arthritis, phlegmon, microabscesses and lumbar discitis/osteomyelitis: Infectious disease was consulted and plan was for 6 weeks of IV cefazolin. Patient left AMA on 07/04. [facility] neurosurgery was consulted and no plans for neurosurgical intervention unless patient develops neuro deficits. Repeat cultures pending. Continue cefazolin 2 g q.8 #. Polysubstance use disorder: Monitor for withdrawal. Consulted Addiction Team #. Hepatitis-C: Antibody reactive and high viral load. Outpatient follow-up for treatment #. Alcohol use disorder: Order thiamine and folic acid #. Iron-deficiency anemia: Initiate supplementation once sepsis/bacteremia resolves Med rec pending DVT prophylaxis: Lovenox Full code Admit as inpatient and will require two night minimum hospital stay for IV antibiotics (as above), which is not possible in a lesser acute setting. Quality Stroke Does the patient have a stroke diagnosis?: No VTE Prior VTE?: No VTE Risk Level:: Medical - moderate - high VTE Device Contraindication: Treatment Not Indicated VTE Drug Contraindication: N/A - Med Ordered
[2024-07-05 06:28] LABS: Alanine Aminotransferase 51 U/L (0-40); Albumin Level 3.6 g/dL (3.5-5.0); Alkaline Phosphatase 77 U/L (39-117); Anion Gap 14 (12-20); Aspartate Amino Transferase 64 U/L (5-37); Bilirubin Direct 0.7 mg/dL (0.0-0.5); Bilirubin Total 1.1 mg/dL (0.0-1.0); Blood Urea Nitrogen 11 mg/dL (9-16); Calcium 9.5 mg/dL (8.4-10.2); Carbon Dioxide 26 mmol/L (22-29); Chloride 98 mmol/L (96-108); Creatinine Clr Calc Pharmacy 143.7; Estimated Glomerular Filt Rate > 60; Ethanol < 10 mg/dL; Glucose Random 103 mg/dL (60-115); Magnesium 2.1 mg/dL (1.6-2.6); Potassium 4.2 mmol/L (3.3-5.1); Sodium 134 mmol/L (135-145)
[2024-07-05 06:29] LABS: Amphetamine Screen Urine Not Detected (Not Detect); Barbiturates, Urine POSITIVE (Not Detect); Benzodiazepines Screen Urine Not Detected (Not Detect); Buprenorphine Scr Not Detected (Not Detect); Cannabinoid Screen Urine Not Detected (Not Detect); Cocaine Screen Urine POSITIVE (Not Detect); Fentanyl, urine POSITIVE (Not Detect); Methadone Screen, Urine Positive (Not Detect); Opiate Screen Urine POSITIVE (Not Detect); Oxycodone Screen Urine Not Detected (Not Detect); Phencyclidine Screen Urine Not Detected (Not Detect)
[2024-07-05 06:33] LABS: SLIDE REVIEW VERIFIED
--- NOTE | 2024-07-05 06:45 | PC.NURSE ---
pt changed over by security - belongings placed in C7.
--- NOTE | 2024-07-05 06:49 | HE.PHANOTE ---
METHADONE Pt was here on 07/04/24, received dose of 80mg around 0700 put in by Floresita Barry.
[2024-07-05] MEDS: methADONE HCl 20 MG/2 ML ORAL.CONC 80 MG PO (07:19)
[2024-07-05] MEDS: Gabapentin 400 MG CAPSULE 800 MG PO ×3 (07:20→21:17)
[2024-07-05] MEDS: Enoxaparin Sodium 40 MG/0.4 ML SYRINGE SUBCUT (07:20)
[2024-07-05] MEDS: 0.9 % Sodium Chloride 1,000 ML 999 ML IV (07:21)
--- NOTE | 2024-07-05 07:26 | PC.NURSE ---
IVF/medication administered per provider order. effectiveness pending. pt pending admission at this time. resting comfortably in stretcher/in no apparent distress. no sob/wob noted. respirations even/unlabored. plan of care ongoing.
--- NOTE | 2024-07-05 08:33 | PHA.MEDREC ---
Pharmacy Consult ? Medication Reconciliation Pharmacy has completed the medication reconciliation. Spoke to patient and he confirmed he only takes gabapentin and methadone, no other medications.
[2024-07-05] MEDS: Thiamine HCL 100 MG TABLET PO (09:58)
[2024-07-05] MEDS: Folic Acid 1 MG TABLET PO (09:58)
--- NOTE | 2024-07-05 12:08 | PC.NURSE ---
pt c/o increase in back pain at this time. the only prn medication that can be utilized for pain at this time is tylenol. pt states he does not want tylenol at this time because it will not help. admitting provider notified/aware of pt's request. plan of care ongoing.
--- NOTE | 2024-07-05 12:14 | HO.ADDICTPRO ---
Subjective Subjective Date of Service: 07/05/24 Reason For Visit: infection Interim History: Patient presents for readmission following self directed discharge less than 24 hours ago Patient was scheduled to discharge to [facility] yesterday afternoon to complete IV abx treatment, however suddenly decided to leave. Seen by bench hand machine this morning no changes to clinical picture -- did report substance use prior to returning to ED Review of Systems Constitutional: Reports as per HPI and Reports no additional constitutional complaints Mental Status Exam Mental Status Exam Level of Consciousness: Awake and Appropriate Diagnostics Vital Signs (24Hr): Vital Signs - 24 hr 07/05/24 01:39 07/05/24 05:41 07/05/24 07:18 Temperature 98.6 F 98.1 F Pulse Rate 96 97 82 Respiratory Rate 18 16 14 Blood Pressure 125/74 127/79 125/61 Pulse Oximetry 99 97 99 Oxygen Delivery Method Room Air Room Air Room Air 07/05/24 11:57 Temperature Pulse Rate 85 Respiratory Rate 14 Blood Pressure 124/78 Pulse Oximetry 99 Oxygen Delivery Method Room Air BMI result Body Mass Index 27.3 Labs 07/05/24 05:57 07/05/24 05:57 Labs: Laboratory Results - last 48 hr 07/05/24 07/05/24 05:57 06:09 WBC 12.0 H RBC 4.36 L Hgb 9.1 L Hct 28.5 L MCV 65.4 L MCH 20.9 L MCHC 31.9 RDW 17.7 H Plt Count 551 H MPV 9.3 L Immature Gran % (Auto) 0.6 H Neut % (Auto) 57.1 Lymph % (Auto) 26.4 [place] % (Auto) 14.1 H Eos % (Auto) 0.9 Baso % (Auto) 0.9 Lymph # (Auto) 3.2 [place] # (Auto) 1.7 H Eos # (Auto) 0.1 Baso # (Auto) 0.1 Abs Immat Gran (auto) 0.07 H Absolute Neuts (auto) 6.9 Absolute Nucleated RBC 0.000 Nucleated RBC % (auto) 0.0 Smear Tech's Comments VERIFIED Sodium 134 L Potassium 4.2 Chloride 98 Carbon Dioxide 26 Anion Gap 14 BUN 11 Creatinine 0.67 Estim Creat Clear Calc 143.7 Estimated GFR > 60 Random Glucose 103 Lactic Acid 0.9 Calcium 9.5 Magnesium 2.1 Total Bilirubin 1.1 H Direct Bilirubin 0.7 H AST 64 H ALT 51 H Alkaline Phosphatase 77 Total Protein 8.0 Albumin 3.6 Urine Opiates Screen POSITIVE H Ur Buprenorphine Scrn Not Detected Ur Oxycodone Screen Not Detected Urine Methadone Screen Positive H Urine Fentanyl Screen POSITIVE H Ur Barbiturates Screen POSITIVE H Ur Phencyclidine Scrn Not Detected Ur Amphetamines Screen Not Detected U Benzodiazepines Scrn Not Detected Urine Cocaine Screen POSITIVE H U Marijuana (THC) Screen Not Detected Ethyl Alcohol < 10 Medications Medications Current Medications Acetaminophen (Acetaminophen 325 Mg Tablet) 650 mg PO Q6H PRN PRN Reason: Pain, Mild (Pain Scale 1-3), fever or headache Calcium Carbonate (Calcium Carbonate 750 Mg Tab.Chew) 750 mg PO Q4H PRN PRN Reason: Heartburn Enoxaparin Sodium (Enoxaparin Sodium 40 Mg/0.4 Ml Syringe) 40 mg SUBCUT Q24H [facility] Last Admin: 07/05/24 07:20 Dose: 40 mg Folic Acid (Folic Acid 1 Mg Tablet) 1 mg PO DAILY [facility] Last Admin: 07/05/24 09:58 Dose: 1 mg Cefazolin Sodium/Dextrose (Ancef) 2 gm in 50 mls @ 100 mls/hr IV Q8H [facility] Last Admin: 07/05/24 06:42 Dose: Not Given Magnesium Hydroxide (Milk Of Magnesia 30 Ml Oral.Susp) 30 ml PO DAILY PRN PRN Reason: Constipation Melatonin (Melatonin 3 Mg Tablet) 6 mg PO BEDTIME PRN PRN Reason: Insomnia Ondansetron HCl (Ondansetron Hcl 4 Mg/2 Ml Vial) 4 mg IVPUSH Q8H PRN PRN Reason: Nausea and Vomiting Sodium Chloride (0.9 % Sodium Chloride Flush 3 Ml Syringe) 3 ml IVFLUSH QSHIFT [facility] Last Admin: 07/05/24 07:25 Dose: Not Given Thiamine HCl (Thiamine Hcl 100 Mg Tablet) 100 mg PO DAILY [facility] Last Admin: 07/05/24 09:58 Dose: 100 mg Allergies Allergies Allergy/AdvReac Type Severity Reaction Status Date / Time fish derived [FISH] Allergy Unknown UNKNOWN - Verified 07/05/24 01:40 NOT ANAPHYLAXIS PER PATIENT trazodone AdvReac Severe priapr Verified 07/05/24 01:40 Assessment & Plan Assessment & Plan (1) Opioid use disorder: Status: Acute Code(s): F11.90 - Opioid use, unspecified, uncomplicated Assessment and Plan: methadone dose 80mg QD which is what his dose was prior to discharge yesterday has already completed alcohol withdrawal protocol Total time managing care of this patient today 15____ minutes.
[2024-07-05] MEDS: HYDROmorphone HCl 1 MG/ML SYRINGE IVPUSH ×3 (13:13→21:17)
[2024-07-05] MEDS: polyethylene glycoL 3350 17 GM POWD.PACK PO (13:14)
[2024-07-05] MEDS: Docusate Sodium 100 MG CAPSULE PO ×2 (13:14→21:17)
--- NOTE | 2024-07-05 13:17 | PC.NURSE ---
pt medicated per provider order. effectiveness pending.
[2024-07-05] MEDS: Nicotine 21 MG PATCH.TD24 TRANSDERMA (14:06)
[2024-07-05] MEDS: Nicotine Polacrilex 2 MG GUM BUCCAL (14:06)
--- NOTE | 2024-07-05 14:07 | PC.NURSE ---
pt requesting nicotine gum/patch. provider notified/aware. medication administered per provider order. patch applied to pt's right shoulder.
--- NOTE | 2024-07-05 15:08 | MHC.CM.PN ---
met with who wants to go to [facility], [place]
[2024-07-05] MEDS: 0.9 % Sodium Chloride Flush 3 ML SYRINGE IVFLUSH (17:12)
--- NOTE | 2024-07-05 17:34 | P.EN_ITS ---
Event Note Date of Service: 07/05/24 Event Note: This patient is seen and examined by hospitalist service in this morning, seen and examined again. back pain and need for antibiotics ,signed ama on 07/04 ,came back. Physical exam: unchanged and assessment and plan coordinated in h&P note., Agree with the plan in addition: admitted for Sepsis due to MSSA bacteremia with thoracic septic arthritis, phlegmon, microabscesses and lumbar discitis/osteomyelitis: Infectious disease was consulted and plan was for 6 weeks of IV cefazolin. Patient left AMA on 07/04. [facility] neurosurgery was consulted and no plans for neurosurgical intervention unless patient develops neuro deficits. Repeat cultures pending. Continue cefazolin 2 g q.8 Time Spent With Patient Time: Total time managing care of this patient today ____ minutes.
--- NOTE | 2024-07-06 00:30 | PC.NURSE ---
Took report from off-going RN at 2300 hours. Pt is a 44 y/o male being admitted for sepsis due to bacteremia with septic arthritis and lumbar osteomylitis. Pt left AMA on 07/04 and then returned to continue treatment. Has bilateral IV access. Is arousable with verbal stimuli. Independent with ADLs and verbalizes needs appropriately. Call light within reach and bed is at lowest position.
--- NOTE | 2024-07-06 01:21 | PC.NURSE ---
Pt is sleeping, appears comfortable.
[2024-07-06] MEDS: 0.9 % Sodium Chloride Flush 3 ML SYRINGE IVFLUSH ×4 (01:22→23:42)
[2024-07-06 02:15] VITALS: RESP 18
[2024-07-06] MEDS: HYDROmorphone HCl 1 MG/ML SYRINGE IVPUSH ×6 (02:15→23:40)
--- NOTE | 2024-07-06 04:17 | PC.NURSE ---
Pt is sleeping in bed, appears comfortable. Easily arousable with verbal stimuli. Reports some relief of pain with medication administration. Pt is calm and cooperative, appropriate with staff. Uses the call light as needed and verbalizes needs appropriately. Changes positions independently as desired. Callight within reach and bed at lowest position. Will continue to monitor for changes. Admission is pending.
[2024-07-06 06:00] VITALS: BP 122/68; PULSE 75; RESP 18; TEMP 36.8; O2SAT 96
[2024-07-06] MEDS: Enoxaparin Sodium 40 MG/0.4 ML SYRINGE SUBCUT (06:59)
[2024-07-06] MEDS: ceFAZolin Sodium/Dextrose,Iso 2 GM/50 ML PIGGYBACK IV ×3 (06:59→22:15)
[2024-07-06 07:04] LABS: MANUAL DIFF FLAG NO
[2024-07-06 07:08] LABS: Basophils Absolute Auto 0.1 X10*3/uL (0.0-0.2); Eosinophils Absolute Auto 0.2 X10*3/uL (0.0-0.4); Eosinophils Percent Auto 2.3 % (0-4); Hemoglobin 9.8 g/dl (14.0-18.0); Imm Gran Abs Auto 0.05 X10*3/uL (0.00-0.03); Imm Gran Pct Auto 0.6 % (0.0-0.4); Lymphocytes Absolute Auto 2.6 X10*3/uL (1.2-4.9); Lymphocytes Percent Auto 34.3 % (20-40); Mean Corpuscular HGB Conc 31.6 g/dl (31.0-36.0); Mean Corpuscular Hemoglobin 20.8 pg (27.0-33.0); Mean Corpuscular Volume 65.8 fL (80.0-98.0); Mean Platelet Volume 9.6 fL (9.4-12.4); Monocytes Absolute Auto 1.2 X10*3/uL (0.1-1.2); Monocytes Percent Auto 15.8 % (2-11); Neutrophils Absolute Auto 3.5 x10*3/uL (2.0-8.3); Platelet Count 601 X10*3/uL (160-400); Red Blood Count 4.71 X10*6/uL (4.60-5.80); Red Cell Distribution Width 18.1 % (11.0-16.0); White Blood Count 7.7 X10*3/uL (4.8-10.8)
--- NOTE | 2024-07-06 07:14 | PC.NURSE ---
this RN resumed care of pt at 0645. a&ox4. vss and up to date. pt remains afebrile. medication administered per provider order. pt requesting prn pain medication as he states that his lower back pain is in increasing. prn medication utilized. pt continue to wait for bed. resting w/ the lights dimmed in no apparent distress. no sob/wob noted. respirations even/unlabored. plan of care ongoing. call [place] placed within reach.
[2024-07-06 07:25] LABS: Anion Gap 13 (12-20); Blood Urea Nitrogen 9 mg/dL (9-16); Calcium 9.6 mg/dL (8.4-10.2); Carbon Dioxide 28 mmol/L (22-29); Chloride 97 mmol/L (96-108); Creatinine Clr Calc Pharmacy 145.9; Estimated Glomerular Filt Rate > 60; Glucose Random 110 mg/dL (60-115); Potassium 4.4 mmol/L (3.3-5.1); Sodium 134 mmol/L (135-145)
[2024-07-06] MEDS: Thiamine HCL 100 MG TABLET PO (08:39)
[2024-07-06] MEDS: Docusate Sodium 100 MG CAPSULE PO (08:40)
[2024-07-06] MEDS: polyethylene glycoL 3350 17 GM POWD.PACK PO (08:40)
[2024-07-06] MEDS: Gabapentin 400 MG CAPSULE 800 MG PO ×3 (08:40→21:39)
[2024-07-06] MEDS: methADONE HCl 20 MG/2 ML ORAL.CONC 80 MG PO (08:40)
[2024-07-06] MEDS: Folic Acid 1 MG TABLET PO (08:40)
[2024-07-06] MEDS: Nicotine 21 MG PATCH.TD24 TRANSDERMA (08:43)
[2024-07-06] MEDS: Nicotine Polacrilex 2 MG GUM BUCCAL ×3 (08:47→22:16)
[2024-07-06 11:06] VITALS: RESP 18
[2024-07-06] MEDS: Acetaminophen 325 MG TABLET 650 MG PO (14:12)
--- NOTE | 2024-07-06 14:17 | P.PNIM_ITS ---
Subjective Subjective Date of Service: 07/06/24 Interval History: sepsis sec to lumbar discitis/osteomyelitis. Review of Systems patient denies new c/o fevers sitting and eating lunch Physical Exam 2 Vital Signs: Vital Signs: Last Vital Signs Temp 98.2 F 07/06/24 06:00 Pulse 75 07/06/24 06:00 Resp 18 07/06/24 11:06 BP 122/68 07/06/24 06:00 Pulse Ox 96 07/06/24 06:00 O2 Del Method Room Air 07/06/24 06:00 BMI result Body Mass Index 27.3 aox3 ,not in distress Regular rate and rhythm, S1-S2 heard Regular breath sounds bilaterally, no wheezing or crackles appreciated Abdomen soft nontender, no guarding, no rigidity neuro:aox3,non focal MSK: no back tenderness or fluctuance. Psych: Normal mood Extremities with track lee Objective Data Active Medications Acetaminophen (Acetaminophen 325 Mg Tablet) 650 mg PO Q6H PRN PRN Reason: Pain, Mild (Pain Scale 1-3), fever or headache Last Admin: 07/06/24 14:12 Dose: 650 mg Documented By: MENDEZ Calcium Carbonate (Calcium Carbonate 750 Mg Tab.Chew) 750 mg PO Q4H PRN PRN Reason: Heartburn Docusate Sodium (Docusate Sodium 100 Mg Capsule) 100 mg PO BID [facility] Last Admin: 07/06/24 08:40 Dose: 100 mg Documented By: ONEAL Enoxaparin Sodium (Enoxaparin Sodium 40 Mg/0.4 Ml Syringe) 40 mg SUBCUT Q24H [facility] Last Admin: 07/06/24 06:59 Dose: 40 mg Documented By: ONEAL Folic Acid (Folic Acid 1 Mg Tablet) 1 mg PO DAILY [facility] Last Admin: 07/06/24 08:40 Dose: 1 mg Documented By: ONEAL Gabapentin (Gabapentin 400 Mg Capsule) 800 mg PO TID [facility] Last Admin: 07/06/24 14:11 Dose: 800 mg Documented By: MENDEZ Hydromorphone HCl (Hydromorphone Hcl 1 Mg/Ml Syringe) 1 mg IVPUSH Q4H PRN; Protocol PRN Reason: Pain, Moderate(Pain Scale 4-6) Last Admin: 07/06/24 11:06 Dose: 1 mg Documented By: SANAZ Cefazolin Sodium/Dextrose (Ancef) 2 gm in 50 mls @ 100 mls/hr IV Q8H [facility] Last Admin: 07/06/24 14:17 Dose: 100 mls/hr Documented By: MENDEZ Magnesium Hydroxide (Milk Of Magnesia 30 Ml Oral.Susp) 30 ml PO DAILY PRN PRN Reason: Constipation Melatonin (Melatonin 3 Mg Tablet) 6 mg PO BEDTIME PRN PRN Reason: Insomnia Methadone HCl (Methadone Hcl 20 Mg/2 Ml Oral.Conc) 80 mg PO DAILY [facility] Last Admin: 07/06/24 08:40 Dose: 80 mg Documented By: ONELA Co-signed By: SANAZ Nicotine (Nicotine 21 Mg Patch.Td24) 21 mg TRANSDERMA DAILY [facility] Last Admin: 07/06/24 08:43 Dose: 21 mg Documented By: ONEAL Nicotine Polacrilex (Nicotine Polacrilex 2 Mg Gum) 2 mg BUCCAL Q2H PRN PRN Reason: Nicotine Cravings Last Admin: 07/06/24 08:47 Dose: 2 mg Documented By: ONEAL Ondansetron HCl (Ondansetron Hcl 4 Mg/2 Ml Vial) 4 mg IVPUSH Q8H PRN PRN Reason: Nausea and Vomiting Polyethylene Glycol (Polyethylene Glycol 3350 17 Gm Powd.Pack) 17 gm PO DAILY [facility] Last Admin: 07/06/24 08:40 Dose: 17 gm Documented By: ONEAL Sodium Chloride (0.9 % Sodium Chloride Flush 3 Ml Syringe) 3 ml IVFLUSH QSHIFT [facility] Last Admin: 07/06/24 07:00 Dose: 3 ml Documented By: ONEAL Thiamine HCl (Thiamine Hcl 100 Mg Tablet) 100 mg PO DAILY [facility] Last Admin: 07/06/24 08:39 Dose: 100 mg Documented By: ONEAL Labs 07/06/24 06:44 07/06/24 06:44 Labs: Laboratory Results - last 24 hr 07/06/24 06:44 MCV 65.8 L MCH 20.8 L MCHC 31.6 RDW 18.1 H Plt Count 601 H MPV 9.6 Immature Gran % (Auto) 0.6 H Neut % (Auto) 46.0 Lymph % (Auto) 34.3 [place] % (Auto) 15.8 H Eos % (Auto) 2.3 Baso % (Auto) 1.0 Lymph # (Auto) 2.6 [place] # (Auto) 1.2 Eos # (Auto) 0.2 Baso # (Auto) 0.1 Abs Immat Gran (auto) 0.05 H Absolute Neuts (auto) 3.5 Absolute Nucleated RBC 0.000 Nucleated RBC % (auto) 0.0 Anion Gap 13 Estim Creat Clear Calc 145.9 Estimated GFR > 60 Random Glucose 110 Calcium 9.6 Microbiology Microbiology Results: Microbiology 07/05/24 06:01 Blood Culture - Preliminary Blood - Venous No growth after 24 hours. 07/05/24 05:57 Blood Culture - Preliminary Blood - Venous No growth after 24 hours. Assessment and Plan (1) Diskitis: Status: Acute Assessment and Plan: 44-year-old male with pertinent history of IV drug use disorder, alcohol use disorder, mood disorder presents to the emergency department for back pain and need for antibiotics. Sepsis due to MSSA bacteremia with thoracic septic arthritis, phlegmon, microabscesses and lumbar discitis/osteomyelitis: Infectious disease was consulted and plan was for 6 weeks of IV cefazolin. Patient left A on 07/04. [facility] neurosurgery was consulted and no plans for neurosurgical intervention unless patient develops neuro deficits. Repeat cultures pending. Continue cefazolin 2 g q.8 Polysubstance use disorder: Monitor for withdrawal. Consulted Addiction Team Hepatitis-C: Antibody reactive and high viral load. Outpatient follow-up for treatment Alcohol use disorder: Order thiamine and folic acid Iron-deficiency anemia: continue supplementation. DVT prophylaxis: Lovenox Full code ongoing inpatient and will require two night minimum hospital stay for IV antibiotics (as above), which is not possible in a lesser acute setting. Quality Stroke Does the patient have a stroke diagnosis?: No VTE Prior VTE?: No VTE Risk Level:: Medical - moderate - high VTE Device Contraindication: Treatment Not Indicated VTE Drug Contraindication: N/A - Med Ordered
[2024-07-06 14:30] VITALS: BP 134/80; PULSE 81; RESP 18; TEMP 37; O2SAT 97
[2024-07-06] MEDS: oxyCODONE HCl Immed Release 5 MG TABLET 10 MG PO (17:17)
[2024-07-06] MEDS: Milk of Magnesia 30 ML ORAL.SUSP PO (17:30)
[2024-07-06 19:37] VITALS: BP 123/79; PULSE 82; RESP 18; TEMP 36.9; O2SAT 98
[2024-07-06] MEDS: Melatonin 3 MG TABLET 6 MG PO (22:15)
[2024-07-07] MEDS: oxyCODONE HCl Immed Release 5 MG TABLET 10 MG PO ×4 (00:59→19:15)
[2024-07-07 02:48] VITALS: BP 117/73; PULSE 82; RESP 18; TEMP 36.6; O2SAT 98
[2024-07-07] MEDS: HYDROmorphone HCl 1 MG/ML SYRINGE IVPUSH ×5 (03:56→20:32)
[2024-07-07] MEDS: ceFAZolin Sodium/Dextrose,Iso 2 GM/50 ML PIGGYBACK IV ×3 (05:38→21:25)
[2024-07-07] MEDS: Enoxaparin Sodium 40 MG/0.4 ML SYRINGE SUBCUT (05:38)
[2024-07-07] MEDS: 0.9 % Sodium Chloride Flush 3 ML SYRINGE IVFLUSH ×3 (07:16→21:59)
[2024-07-07 07:19] VITALS: BP 98/52; PULSE 62; RESP 16; TEMP 36.6; O2SAT 98
[2024-07-07] MEDS: Nicotine 21 MG PATCH.TD24 TRANSDERMA (08:19)
[2024-07-07] MEDS: Folic Acid 1 MG TABLET PO (08:20)
[2024-07-07] MEDS: Gabapentin 400 MG CAPSULE 800 MG PO ×3 (08:20→19:15)
[2024-07-07] MEDS: methADONE HCl 20 MG/2 ML ORAL.CONC 80 MG PO (08:20)
[2024-07-07] MEDS: Thiamine HCL 100 MG TABLET PO (08:21)
[2024-07-07] MEDS: Acetaminophen 325 MG TABLET 650 MG PO ×2 (09:00→15:52)
[2024-07-07] MEDS: Nicotine Polacrilex 2 MG GUM BUCCAL ×3 (09:00→15:52)
--- NOTE | 2024-07-07 13:37 | HO.PM.IMPN ---
Subjective Subjective Date of Service: 07/07/24 Interval History: sepsis sec to lumbar discitis/osteomyelitis. Review of Systems denies new c/o ambulating as per staff Physical Exam Vital Signs: Vital Signs: Last Vital Signs Temp 98 F 07/07/24 07:19 Pulse 62 07/07/24 07:19 Resp 16 07/07/24 07:19 BP 98/52 L 07/07/24 07:19 Pulse Ox 98 07/07/24 07:19 O2 Del Method Room Air 07/07/24 07:19 BMI result Body Mass Index 27.3 aox3 ,not in distress cvs:Regular rate and rhythm, S1-S2 heard pulm:Regular breath sounds bilaterally, no wheezing or crackles . Abdomen soft nontender, no guarding, no rigidity neuro:aox3,non focal MSK: no back tenderness or fluctuance. Psych: Normal mood Extremities with track lee Objective Data Active Medications Acetaminophen (Acetaminophen 325 Mg Tablet) 650 mg PO Q6H PRN PRN Reason: Pain, Mild (Pain Scale 1-3), fever or headache Last Admin: 07/07/24 09:00 Dose: 650 mg Documented By: MENDEZ Calcium Carbonate (Calcium Carbonate 750 Mg Tab.Chew) 750 mg PO Q4H PRN PRN Reason: Heartburn Docusate Sodium (Docusate Sodium 100 Mg Capsule) 100 mg PO BID [facility] Last Admin: 07/07/24 08:25 Dose: Not Given Documented By: MENDEZ Non-Admin Reason: Patient Refused Enoxaparin Sodium (Enoxaparin Sodium 40 Mg/0.4 Ml Syringe) 40 mg SUBCUT Q24H [facility] Last Admin: 07/07/24 05:38 Dose: 40 mg Documented By: JOSELYN Folic Acid (Folic Acid 1 Mg Tablet) 1 mg PO DAILY [facility] Last Admin: 07/07/24 08:20 Dose: 1 mg Documented By: MENDEZ Gabapentin (Gabapentin 400 Mg Capsule) 800 mg PO TID [facility] Last Admin: 07/07/24 08:20 Dose: 800 mg Documented By: MENDEZ Hydromorphone HCl (Hydromorphone Hcl 1 Mg/Ml Syringe) 1 mg IVPUSH Q4H PRN; Protocol PRN Reason: Pain, Moderate(Pain Scale 4-6) Last Admin: 07/07/24 12:21 Dose: 1 mg Documented By: MENDEZ Cefazolin Sodium/Dextrose (Ancef) 2 gm in 50 mls @ 100 mls/hr IV Q8H [facility] Last Infusion: 07/07/24 06:22 Dose: Infused Documented By: JOSELYN Magnesium Hydroxide (Milk Of Magnesia 30 Ml Oral.Susp) 30 ml PO DAILY PRN PRN Reason: Constipation Last Admin: 07/06/24 17:30 Dose: 30 ml Documented By: MENDEZ Melatonin (Melatonin 3 Mg Tablet) 6 mg PO BEDTIME PRN PRN Reason: Insomnia Last Admin: 07/06/24 22:15 Dose: 6 mg Documented By: JOSELYN Methadone HCl (Methadone Hcl 20 Mg/2 Ml Oral.Conc) 80 mg PO DAILY [facility] Last Admin: 07/07/24 08:20 Dose: 80 mg Documented By: MENDEZ Co-signed By: SWAPNIL Nicotine (Nicotine 21 Mg Patch.Td24) 21 mg TRANSDERMA DAILY [facility] Last Admin: 07/07/24 08:19 Dose: 21 mg Documented By: MENDEZ Nicotine Polacrilex (Nicotine Polacrilex 2 Mg Gum) 2 mg BUCCAL Q2H PRN PRN Reason: Nicotine Cravings Last Admin: 07/07/24 09:00 Dose: 2 mg Documented By: MENDEZ Ondansetron HCl (Ondansetron Hcl 4 Mg/2 Ml Vial) 4 mg IVPUSH Q8H PRN PRN Reason: Nausea and Vomiting Oxycodone HCl (Oxycodone Hcl Immed Release 5 Mg Tablet) 10 mg PO Q6H PRN PRN Reason: Pain, Mild (Pain Scale 1-3) Last Admin: 07/07/24 07:16 Dose: 10 mg Documented By: MENDEZ Polyethylene Glycol (Polyethylene Glycol 3350 17 Gm Powd.Pack) 17 gm PO DAILY [facility] Last Admin: 07/07/24 08:25 Dose: Not Given Documented By: MENDEZ Non-Admin Reason: Patient Refused Sodium Chloride (0.9 % Sodium Chloride Flush 3 Ml Syringe) 3 ml IVFLUSH QSHIFT [facility] Last Admin: 07/07/24 07:16 Dose: 3 ml Documented By: MENDEZ Thiamine HCl (Thiamine Hcl 100 Mg Tablet) 100 mg PO DAILY [facility] Last Admin: 07/07/24 08:21 Dose: 100 mg Documented By: MENDEZ Labs 07/06/24 06:44 07/06/24 06:44 Microbiology Microbiology Results: Microbiology 07/05/24 06:01 Blood Culture - Preliminary Blood - Venous No growth after 48 hours. 07/05/24 05:57 Blood Culture - Preliminary Blood - Venous No growth after 48 hours. Assessment and Plan (1) Diskitis: Status: Acute Assessment and Plan: 44-year-old male with pertinent history of IV drug use disorder, alcohol use disorder, mood disorder presents to the emergency department for back pain and need for antibiotics. Sepsis due to MSSA bacteremia with thoracic septic arthritis, phlegmon, microabscesses and lumbar discitis/osteomyelitis: Infectious disease was consulted and plan was for 6 weeks of IV cefazolin. Patient left AMA on 07/04. [facility] neurosurgery was consulted and no plans for neurosurgical intervention unless patient develops neuro deficits. Repeat cultures pending. Continue cefazolin 2 g q.8 Polysubstance use disorder: Monitor for withdrawal. Consulted Addiction Team Hepatitis-C: Antibody reactive and high viral load. Outpatient follow-up for treatment Alcohol use disorder: Order thiamine and folic acid Iron-deficiency anemia: continue supplementation. DVT prophylaxis: Lovenox Full code ongoing inpatient need -awaiting placement. Quality Stroke Does the patient have a stroke diagnosis?: No VTE Prior VTE?: No VTE Risk Level:: Medical - moderate - high VTE Device Contraindication: Treatment Not Indicated VTE Drug Contraindication: N/A - Med Ordered
[2024-07-07 15:12] VITALS: BP 129/81; PULSE 76; RESP 20; TEMP 36.4; O2SAT 97
--- NOTE | 2024-07-07 16:16 | MHC.CM.PN ---
BED OFFER RECEIVED FROM [facility] THIS AFTERNOON, THEY WILL NEED MDS APPROVAL, GUEST DOSING SET UP, AND LESS THAN 30 DAY. PICC LINE PENDING. MDS COMPLETED AND FAXED TO [employer] [facility] WORKING WITH [employer] TO CONFIRM GUEST DOSING.
[2024-07-07 19:32] VITALS: BP 118/66; PULSE 70; RESP 17; TEMP 36; O2SAT 99
[2024-07-08] MEDS: HYDROmorphone HCl 1 MG/ML SYRINGE IVPUSH ×4 (00:34→14:36)
[2024-07-08] MEDS: oxyCODONE HCl Immed Release 5 MG TABLET 10 MG PO ×3 (02:14→16:10)
[2024-07-08 02:57] VITALS: BP 118/70; PULSE 73; RESP 18; TEMP 37.1; O2SAT 99
[2024-07-08] MEDS: ceFAZolin Sodium/Dextrose,Iso 2 GM/50 ML PIGGYBACK IV ×2 (05:28→13:36)
[2024-07-08 07:58] VITALS: BP 125/72; PULSE 74; RESP 18; TEMP 36.9; O2SAT 99
[2024-07-08] MEDS: Thiamine HCL 100 MG TABLET PO (08:33)
[2024-07-08] MEDS: Gabapentin 400 MG CAPSULE 800 MG PO ×2 (08:35→14:36)
[2024-07-08] MEDS: 0.9 % Sodium Chloride Flush 3 ML SYRINGE IVFLUSH ×2 (08:35→14:39)
[2024-07-08] MEDS: Folic Acid 1 MG TABLET PO (08:35)
[2024-07-08] MEDS: polyethylene glycoL 3350 17 GM POWD.PACK PO (08:36)
[2024-07-08] MEDS: methADONE HCl 20 MG/2 ML ORAL.CONC 80 MG PO (08:36)
[2024-07-08] MEDS: Nicotine 21 MG PATCH.TD24 TRANSDERMA (08:59)
[2024-07-08] MEDS: 0.9 % Sodium Chloride Flush 10 ML SYRINGE 5 ML IVFLUSH ×2 (10:20→13:36)
--- NOTE | 2024-07-08 11:43 | HO.PICC ---
PICC Line Insertion NPICC Diagnosis: Osteomyelitis Indication: Discitis and bacteremia Pertinent Labs: Reviewed Technique: Following informed consent including risks, benefits and alternatives and using sterile technique including cap and mask, sterile gown, glove and drape, the left arm was prepped and draped in the usual sterile fashion of full barrier technique with CHG. Following completion of [place] Protocol the skin and soft tissues were anesthetized with 1% Lidocaine plain. Using ultrasound guidance, the left brachial vein access was obtained in a single attempt by this RN. Over an 0.018 wire through peel-away sheath, a single lumen Single 4 spanish lumen PASV PICC line was positioned. Catheter length is 44 cm internal length, the external length is at the 0 cm external alli, for a total trimmed length of 44 cm. The procedure was performed in S272. Tip verification was performed by Pradeep Baum with Sherlock 3CG. Tip located in SVC. Ultrasound was used to document vein patency and for needle entry. A formal ultrasound picture and cardiac rhythm strip was recorded. Vascular Supervisor [employer] has released the line for use and it is currently dressed with a StatLock, Tegaderm, and CHG disc. Verification has been performed for blood return and line patency. Arm Circumference: 30 cm Equipment: gDine PowerPICC Solo Catheter with 3 CG Tip Catheter Type: 4 spanish single lumen PASV PICC Lot #: [id number]
--- NOTE | 2024-07-08 12:59 | P.DS_ITS ---
DS: Providers Provider Date of Service: 07/08/24 Date of admission: 07/05/24 06:25 Date of discharge: 07/08/24 Primary care physician: Unknown Physician Admitting clinician: Diego Schultz Attending physician on admission: Diego Schultz Consults: 07/05/24 06:33 Addiction Medicine Routine Consulting Provider: Addiction Covering Reason for consultation: opioid use disorder 07/06/24 14:04 Addiction Medicine Routine Consulting Provider: Addiction Covering Reason for consultation: methadone 07/08/24 12:29 Consult to Infectious Diseases Routine Consulting Provider: [facility] Reason for consultation: decitis Has provider been notified: No Attending physician on discharge: Ruthy Tavera Discharging clinician: Ruthy Tavera DS: Diagnosis Discharge Diagnosis (1) Diskitis: Status: Acute DS: Summary Hospital Course Hospital Course: 44-year-old male with pertinent history of IV drug use disorder, alcohol use disorder, mood disorder presents to the emergency department for back pain and need for antibiotics. Patient was admitted on 06/24 and found to have MSSA bacteremia with thoracic septic arthritis with phlegmon and lumbar discitis/osteomyelitis. Plan was for 6 weeks of IV cefazolin as per Infectious Disease. Patient left AMA on 07/04. Patient does admit that he snorted a bag of fentanyl while he was gone. He returned as he states that he was told that he needs IV antibiotics and for back pain. Apart from back pain, denies any new symptoms. No fever, chills, chest discomfort, palpitations, shortness of breath, abdominal pain, changes in urinary or bowel habits. States he did not drink alcohol. In the emergency department, blood cultures obtained and patient was given IV Ancef. hospital course: Sepsis due to MSSA bacteremia with thoracic septic arthritis, phlegmon, microabscesses and lumbar discitis/osteomyelitis-started on iv antibiotics ,pain meds ,blood cultures sent which was mssa last admission ,repeat blood cultures negative that time ,then patient left [facility] on (07/04) and came back next day on( 07/05)to ed-started back on antibiotics and : patient seems improving with above supprotive care ,has some paraspinal muscle pain . blood cultures negative 48 hrs ,ambulatory with no limitations, no neurologic deciets ,[facility] neurosurgery was consulted and no plans for neurosurgical intervention unless patient develops neuro deficits. Currently patient ambulating fine, has some paraspinal muscle pain. No no urinary or bowel incontinence or any numbness or weakness. Leukocytosis resolved, no fever. d/w Id -plan is 6 week of antibiotics moniter cbc ,cmp q weekly while on antibiotics , in addition added po oxycodone . seen by addiction team also , continue methadone. plan: Continue cefazolin 2 g IV Q 8 hour end date will be August 19. moniter cbc ,cmp q weekly while on antibiotics , in addition added po oxycodone . Assist assessment and plan coordination time spent 40 minute. Patient will benefit from less than 30 days rehab stay. Time Attestation Total time managing care of this patient today: 40 mintues. Discharge Coordination Time (in mins): 40 min Quality: Safe Use of Opioids Does Pt have an Active Cancer Diagnosis on the Problem List?: Yes Opioid Measure Date for [facility] Report: 06/08/24 Opioid Measure Time for [facility] Report: 18:59 Quality: Stroke Does the patient have a stroke diagnosis?: No Physical Exam Vital Signs: Vital Signs: Last Vital Signs Temp 98.5 F 07/08/24 07:58 Pulse 74 07/08/24 07:58 Resp 18 07/08/24 07:58 BP 125/72 07/08/24 07:58 Pulse Ox 99 07/08/24 07:58 O2 Del Method Room Air 07/08/24 07:58 BMI result Body Mass Index 27.3 aox3 ,not in distress cvs:Regular rate and rhythm, S1-S2 heard pulm:Regular breath sounds bilaterally, no wheezing or crackles . Abdomen soft nontender, no guarding, no rigidity neuro:aox3,non focal MSK: no fluctuance or spine tenderness ,mild paraspinal muscle sorness. Psych: Normal mood Extremities with track lee DS: Data Data Completed and Pending Completed studies during hospitalization [Text1]: Procedures Detoxification Services for Substance Abuse Treatment (08/17/23) Drainage of Left Upper Extremity, Open Approach (09/22/23) Labs on day of discharge: Preliminary micro results at discharge 07/05/24 06:01 Blood Culture - Preliminary Blood - Venous No growth after 48 hours. 07/05/24 05:57 Blood Culture - Preliminary Blood - Venous No growth after 48 hours. Discharge Plan Discharge Anticipated Discharge Date/Time: 07/08/24 12:31 Patient Disposition: Xfer SNF Discharge Diagnosis: sepsis ,mssa bactermia Referrals: [facility] [Outside] - 1 Week Physician,Unknown J [Primary Care Provider] - 1 Week Discharge Medications: New polyethylene glycol 3350 17 gram Powder In Packet 17 g PO DAILY Qty: 1 0RF nicotine 21 mg/24 hr Patch 24 Hour 21 mg transdermal DAILY Qty: 1 0RF docusate sodium 100 mg Capsule 100 mg PO BID Qty: 1 0RF oxycodone 5 mg Tablet 10 mg PO Q6H PRN (Reason: Pain, Mild (Pain Scale 1-3)) Qty: 20 0RF Rx Instructions: Partial Fill upon patient request. cefazolin in dextrose (iso-os) 2 gram/50 mL Piggyback 1 ml IV Q8H Qty: 1 0RF Rx Instructions: end date antibiotics 08/19/24 Continued gabapentin 800 mg tablet 800 mg PO TID methadone [Methadose] 10 mg/mL Concentrate 80 mg PO DAILY Qty: 1000 0RF Rx Instructions: Partial Fill upon patient request. Discharge Orders: Discharge Order (Routine); Ordered 07/08/24 Ordered By: Ruthy Tavera Diet: Advance to usual diet Activity on Discharge: As tolerated Stand Alone Forms: Patient Portal Discharge page Print Language: Czech Care Plan Goals: Sepsis due to MSSA bacteremia with thoracic septic arthritis, phlegmon, microabscesses and lumbar discitis/osteomyelitis-started on iv antibiotics ,pain meds ,blood cultures sent which was mssa last admission ,repeat blood cultures negative that time ,then patient left [facility] on (07/04) and came back next day on( 07/05)to ed-started back on antibiotics and : patient seems improving with above supprotive care ,has some paraspinal muscle pain . blood cultures negative 48 hrs ,ambulatory with no limitations, no neurologic deciets ,[facility] neurosurgery was consulted and no plans for neurosurgical intervention unless patient develops neuro deficits. d/w Id -plan is 6 week of antibiotics moniter cbc ,cmp q weekly while on antibiotics , in addition added po oxycodone . seen by addiction team also , continue methadone. Health Concerns: as above Plan of Treatment: as above. Assessment: as above Discharge Date/Time: 07/08/24 18:35
[2024-07-08 15:21] VITALS: BP 130/61; PULSE 68; RESP 20; TEMP 36.3; O2SAT 99
[2024-07-08] MEDS: ondansetron HCL 4 MG/2 ML VIAL IVPUSH (16:14)
--- NOTE | 2024-07-08 16:23 | MHC.CM.PN ---
Pt is medically cleared for discharge to [facility] today via BLS/[facility]. Tamar from [facility] has approved of pts transfer today.
[2024-07-08] MEDS: Nicotine Polacrilex 2 MG GUM BUCCAL (16:25)
--- NOTE | 2024-07-09 12:58 | P.CNID_ITS ---
History of Present Illness Data of Consult Service Date: 07/07/24 Requesting physician: Ruthy Tavera Primary Care Provider: Unknown Physician HPI Reason for consult: MSSA bacteremia 06/27 He presents with 8/10 low to mid back pain. He had left hospital AMA after starting treatment for MSSA bactermia. He also has T11-12 back pain but no urine or bowel incontinence. He denies fever. Review of Systems 2 Review of Systems: Yes all other systems are reviewed and are negative PMFSH Past Medical History Medical History Bacteremia Depression Polysubstance abuse IVDU (intravenous drug user) Alcohol dependence Recurrent major depression-severe PTSD (post-traumatic stress disorder) PTSD (post-traumatic stress disorder) Hep C w/o coma, chronic Family History Family history: reviewed and not pertinent Surgical History Surgical History History of surgery on arm Social History Social History Household Members: None Household Members Other:: unable to obtain information from patient d/t sedation. Housing: Homeless Do you presently have visiting nurse or other home services: No Alcohol intake: current Alcohol intake frequency: 3 or more drinks per day Alcohol type: beer and hard liquor Comment: pt refused bed alarm Patient Tobacco Use Status: Current everyday Tobacco user Tobacco use type: Smokeless Tobacco Cigarette Packs Per Day: 2 Cigarettes Per Day: 40.0 Years Smoked: unknown e-Cigarette/Vaping Use: Currently Using Second Hand Smoke Exposure: No Substance Use Type: Heroin and IV Drugs service: No Sexual orientation: Straight/Heterosexual Meds Allergies Allergy/AdvReac Type Severity Reaction Status Date / Time fish derived [FISH] Allergy Unknown UNKNOWN - Verified 07/05/24 01:40 NOT ANAPHYLAXIS PER PATIENT trazodone AdvReac Severe priapr Verified 07/05/24 01:40 Home Medications ?Medication ?Instructions ?Recorded ?Confirmed ?Last Taken ?Type gabapentin 800 mg tablet 800 mg PO TID 06/24/24 07/05/24 Unknown History Physical Exam 2 Vital Signs: Vital Signs: Last Vital Signs Temp 97.4 F 07/08/24 15:21 Pulse 68 07/08/24 15:21 Resp 20 07/08/24 15:21 BP 130/61 07/08/24 15:21 Pulse Ox 99 07/08/24 15:21 O2 Del Method Room Air 07/08/24 15:21 BMI result Body Mass Index 27.3 Const: General: cooperative HEENT: Head: Yes normal to inspection Face and sinus: Yes normal facial exam Mouth: Normal oral and palatal mucosa present Teeth and gingiva: d entition normal Eyes: General: appearance normal, both eyes and all related structures P upils: Equal, round and reactive pupils present Resp: Effort & Inspection: normal respiratory effort Cardio: Rate: regular rate Rhythm: regular rhythm GI: Palpation (GI): Soft to palpation and nontender : General: Yes no CVA tenderness Back/Spine/Pelvis: Back: no CVA tenderness Skin: General skin exam: no rashes or lesions noted Neuro: Other: no weakness LE,moves and walks freely Cranial nerves: Yes Equal, round and reactive pupils present Extrem: General: Yes normal to inspection Psych: Appearance: grossly normal Results Labs 07/06/24 06:44 07/06/24 06:44 Microbiology Microbiology Results: Microbiology 07/05/24 06:01 Blood - Venous Blood Culture - Preliminary No growth after 48 hours. 07/05/24 05:57 Blood - Venous Blood Culture - Preliminary No growth after 48 hours. Assessment and Plan (1) Diskitis: Qualifiers: Spinal region: thoracic Qualified Code(s): M46.44 - Discitis, unspecified, thoracic region Status: Acute Plan He has had bacteremia,06/27,MSSA Still diskiitis Minimal 6-8 weeks Daptomycin contiguous Should followup another MRI and with Neurosurgery and me. Weekly CBC ,CK and creatinine.
== END 2024-07-08 18:35 | disposition skilled nursing facility (03) | DRG 720 ==
LOC: HO.ED 05:40 → HO.EDOVER 06:29 → HO.S3 07-06 11:39
PROVIDERS: Admitting Provider Student in an Organized Health Care Education/Training Program; Emergency Provider Emergency Medicine; Visit Provider Internal Medicine
DX: A41.01 Sepsis due to Methicillin susceptible Staphylococcus aureus (principal); M46.26 Osteomyelitis of vertebra, lumbar region; B19.20 Unspecified viral hepatitis C without hepatic coma; D50.9 Iron deficiency anemia, unspecified; F10.20 Alcohol dependence, uncomplicated; F11.20 Opioid dependence, uncomplicated; M46.54 Other infective spondylopathies, thoracic region; M46.46 Discitis, unspecified, lumbar region; F17.210 Nicotine dependence, cigarettes, uncomplicated; F19.90 Other psychoactive substance use, unspecified, uncomplicated; Z71.6 Tobacco abuse counseling; Z79.899 Other long term (current) drug therapy
CPT/HCPCS: 36415; 36573; 80048; 80076; 80307; 83605; 83735; 85025; 87040; 99285; C1751; C1894; J0690; J1170; J1650; J2405

== ENCOUNTER → 2024-07-05 06:25 | Outpatient (BNV) | payer MEDICAID, SELFPAY | PROVIDERS: Admitting Provider Student in an Organized Health Care Education/Training Program; Emergency Provider Emergency Medicine; Visit Provider Internal Medicine | DX: M46.44 Discitis, unspecified, thoracic region (principal) | CPT/HCPCS: 99222 ==

== ENCOUNTER → 2024-07-05 06:25 | Outpatient (BNV) | payer MEDICAID, SELFPAY | PROVIDERS: Admitting Provider Student in an Organized Health Care Education/Training Program; Emergency Provider Emergency Medicine; Visit Provider Nurse Practitioner Psychiatric/Mental Health | DX: F11.90 Opioid use, unspecified, uncomplicated (principal) | CPT/HCPCS: 99231 ==

== ENCOUNTER → 2024-07-05 06:25 | Outpatient (BNV) | payer MEDICAID, SELFPAY | PROVIDERS: Admitting Provider Student in an Organized Health Care Education/Training Program; Emergency Provider Emergency Medicine; Visit Provider Student in an Organized Health Care Education/Training Program | DX: A41.01 Sepsis due to Methicillin susceptible Staphylococcus aureus (principal); M46.49 Discitis, unspecified, multiple sites in spine | CPT/HCPCS: 99231; 99233; 99239; 99499 ==

== ENCOUNTER 2024-07-25 12:29 | Emergency (ER) | payer MEDICAID, SELFPAY ==
--- NOTE | ~2024-07-25 | IR_ITS ---
CLINICAL HISTORY: IV antibiotics PROCEDURES: 1. Real-time ultrasound-guided access into the right basilic vein after documentation of selected vessel patency, and permanent imaging storing in the patient record. 2. Placement of a 4 fr 39 cm, single lumen power PICC CLINICIANS: Waldemar Felix PA-C MEDICATIONS: -Lidocaine 1% 10 mL SQ. -Antibiotics: None. Complications: None. Estimated blood loss: <5 ml Specimens: None. Contrast: None. Fluoroscopy time: 0.3 min Procedure note: The procedure, risks, benefits, and alternatives were carefully explained to the patient and written informed consent was obtained. The patient was placed supine on the fluoroscopy table. A timeout was performed. The right arm was prepped and draped in usual sterile fashion. Using ultrasound and fluoroscopic guidance, venous access was achieved into the basilic vein with a micropuncture set. A peel-away sheath was advanced over the wire. The 0.018 inch wire was advanced into the right atrium. A 4 fr, 39 cm, single-lumen power PICC was advanced over the wire, with its tip in the the cavoatrial junction. The wire was removed. The catheter was tested and secured with a 3-0 nylon suture. A permanent ultrasound image and chest fluoroscopic image was saved to PACS. The patient was stable after the procedure and was transferred to the floor. FINDINGS: 1. Patent right basilic vein 2. Placement of a 4 fr 39 cm, single-lumen power PICC IR/IR cvc insert peripheral IMPRESSION: Placement of a 4 fr 39 cm, single-lumen power PICC PLAN: -The catheter may be used immediately. This procedure was performed by Waldemar Felix PA-C, and directly supervised by Dr. Santos Electronically signed by: Scot Santos MD 07/27/2024 12:05 PM EDT
[2024-07-25 12:46] VITALS: BP 146/87; PULSE 90; RESP 16; TEMP 37.2; O2SAT 98; BMI 26.6
--- NOTE | 2024-07-25 12:53 | ED.GENADULT ---
HPI - General Adult General Chief complaint: General Medical Stated complaint: staph infection on back Time Seen by Provider: 07/25/24 21:27 Source: patient Mode of arrival: ambulatory Limitations: no limitations History of Present Illness ED Provider: maricel PAZ narrative: 44-year-old male with pertinent history of IV drug use disorder, alcohol use disorder, mood disorder presents to the emergency department for back pain and need for antibiotics. Patient was admitted on 06/24 till 07/04 and found to have MSSA bacteremia with thoracic septic arthritis with phlegmon and lumbar discitis/osteomyelitis readmitted on 07/05 AMA from long-term facility on 07/19 without finishing the course patient is still using IV drugs complaining of low back pain and low-grade fever patient ambulatory no bladder or bowel involvement Related Data Home Medications ?Medication ?Instructions ?Recorded ?Confirmed gabapentin 800 mg tablet 800 mg PO TID 06/24/24 07/26/24 clonidine HCl 0.1 mg tablet 0.1 mg PO BEDTIME 07/26/24 07/26/24 hydroxyzine HCl 50 mg tablet 50 mg PO BEDTIME 07/26/24 07/26/24 Previous Rx's ?Medication ?Instructions ?Recorded methadone 10 mg/mL oral 80 mg (8 mL) PO DAILY #1,000 mL 07/04/24 concentrate (Methadose) Allergies Allergy/AdvReac Type Severity Reaction Status Date / Time fish derived [FISH] Allergy Unknown UNKNOWN - Verified 07/25/24 12:54 NOT ANAPHYLAXIS PER PATIENT trazodone AdvReac Severe priapr Verified 07/25/24 12:54 tomato AdvReac Stomach Verified 07/27/24 12:05 Upset Review of Systems Review of Systems: Yes all other systems are reviewed and are negative PMFSH Past Medical History Medical History Bacteremia Depression Polysubstance abuse IVDU (intravenous drug user) Alcohol dependence Recurrent major depression-severe PTSD (post-traumatic stress disorder) PTSD (post-traumatic stress disorder) Hep C w/o coma, chronic Surgical History History of surgery on arm Social History Social History Household Members: None Household Members Other:: unable to obtain information from patient d/t sedation. Housing: Homeless Do you presently have visiting nurse or other home services: No Alcohol intake: current Alcohol intake frequency: 3 or more drinks per day Alcohol type: beer and hard liquor Comment: pt refused bed alarm Patient Tobacco Use Status: Current everyday Tobacco user Tobacco use type: Smokeless Tobacco Cigarette Packs Per Day: 2 Cigarettes Per Day: 40.0 Years Smoked: unknown e-Cigarette/Vaping Use: Currently Using Second Hand Smoke Exposure: No Use of substances other than those prescribed or required for medical reasons: Yes Substance Use Type: Heroin and IV Drugs Last Used Substance: Days (ago) Advance Directives: No Advance Directives Information Provided: No Do you have a plan to hurt others: No Plan service: No Sexual orientation: Straight/Heterosexual Physical Exam ED Vital Signs: Vital Signs - 24 hr 07/27/24 11:26 07/27/24 20:00 07/28/24 05:08 Temperature 97.5 F 98.6 F 98.7 F Pulse Rate 97 82 52 Respiratory Rate 20 12 14 Blood Pressure 144/64 H 129/76 137/84 Pulse Oximetry 98 99 99 Oxygen Delivery Method Room Air Room Air Room Air BMI result Body Mass Index 26.6 Appearance: Alert. Oriented X3. No acute distress. Eyes: No pallor or icterus ENT: Pharynx normal. Oral Mucosa moist Neck: Normal inspection. Neck supple. CVS: Normal heart rate and rhythm. Pulses normal. Respiratory: No respiratory distress. Equal air entry bilateral, no wheezing/rales/rhonchi Abdomen: Soft and nontender. Bowel sounds are present, no mass palpable, no CVA tenderness Skin: Skin warm and dry. Normal skin color. Normal skin turgor. Extremities: No lower extremity edema. No calf tenderness back: Diffuse lumbar tenderness L2-L3 no skin discoloration or swelling Neuro: Oriented X 3. No motor deficit. No sensory deficit.No cerebellar signs , cranial nerves II-XII intact Course Course Course Narrative: This is an RME: Additional HPI, ROS, PE not included below will be deferred to primary provider. RME assessment and note performed by: Ladi Lira PA-C This is a 44-year-old male with pertinent history of IV drug use disorder, alcohol use disorder, mood disorder presents to the emergency department for back pain and need for antibiotics. Patient was admitted on 06/24 and found to have MSSA bacteremia with thoracic septic arthritis with phlegmon and lumbar discitis/osteomyelitis. Plan was for 6 weeks of IV cefazolin as per Infectious Disease. Patient left AMA on 07/04. He returned on 07/05 and was admitted until 07/08. [facility]. He states worsening back pain and need for antibiotics. Plan: Labs, further ER eval needed. Reevaluation(s) Reevaluation #1: Physician observation continued, no overnight events reported by nursing. Vital signs stable. CM following for disposition. Time: 09:17 Reevaluation #2: Vital signs stable. No acute overnight events per nursing notes. Physician observation continued pending case management and disposition. Will continue to monitor. Time: 06:42 Medications Administered Generic Name Dose Route Start Last Admin Trade Name Freq PRN Reason Stop Dose Admin Cefazolin Sodium/Dextrose 2 gm in 50 mls @ 100 mls/hr 07/28/24 09:00 07/28/24 10:55 Ancef IV Infused Q8H MELQUIADES Infusion Lorazepam 2 mg 07/25/24 23:36 07/28/24 02:02 Lorazepam 1 Mg Tablet PO 2 mg RQ4H WHILE AWAKE PRN Administration Alcohol Withdrawal Methadone HCl 55 mg 07/28/24 09:00 07/28/24 10:27 Methadone Hcl 20 Mg/2 Ml Oral.Conc PO 55 mg DAILY MELQUIADES Administration Oxycodone HCl 10 mg 07/27/24 20:01 07/28/24 10:29 Oxycodone Hcl Immed Release 5 Mg Tablet PO 10 mg Q8H PRN Administration Pain, Severe (Pain Scale 7-10) Discontinued Medications Generic Name Dose Route Start Last Admin Trade Name Freq PRN Reason Stop Dose Admin Acetaminophen 650 mg 07/25/24 22:15 07/25/24 22:50 Acetaminophen 325 Mg Tablet PO 07/25/24 22:16 650 mg ONCE ONE Administration Cefazolin Sodium/Dextrose 2 gm in 50 mls @ 100 mls/hr 07/25/24 21:39 07/25/24 23:24 Ancef IV 07/25/24 22:08 Infused ONCE ONE Infusion Sodium Chloride 1,000 mls @ 999 mls/hr 07/25/24 22:15 07/26/24 00:45 Ns IV 07/25/24 23:15 Infused .Q1H1M ONE Infusion Cefazolin Sodium/Dextrose 2 gm in 50 mls @ 100 mls/hr 07/26/24 14:55 07/26/24 19:13 Ancef IV 07/26/24 15:24 Infused ONCE ONE Infusion Ibuprofen 600 mg 07/25/24 22:15 07/25/24 22:50 Ibuprofen 600 Mg Tablet PO 07/25/24 22:16 600 mg ONCE ONE Administration Ibuprofen 600 mg 07/27/24 17:20 07/27/24 17:50 Ibuprofen 600 Mg Tablet PO 07/27/24 17:21 600 mg ONCE ONE Administration Methadone HCl 20 mg 07/26/24 12:44 07/26/24 13:14 Methadone Hcl 20 Mg/2 Ml Oral.Conc PO 07/26/24 12:45 20 mg ONCE ONE Administration Methadone HCl 10 mg 07/26/24 15:17 07/26/24 23:33 Methadone Hcl 20 Mg/2 Ml Oral.Conc PO 10 mg DAILY PRN Administration Opiate Withdrawal Methadone HCl 40 mg 07/27/24 09:00 07/27/24 09:30 Methadone Hcl 20 Mg/2 Ml Oral.Conc PO 40 mg DAILY MELQUIADES Administration Oxycodone HCl 10 mg 07/26/24 18:43 07/26/24 18:57 Oxycodone Hcl Immed Release 5 Mg Tablet PO 07/26/24 18:44 10 mg ONCE ONE Administration Oxycodone HCl 10 mg 07/26/24 23:39 07/27/24 00:37 Oxycodone Hcl Immed Release 5 Mg Tablet PO 07/26/24 23:40 10 mg ONCE ONE Administration Oxycodone HCl 10 mg 07/27/24 13:43 07/27/24 13:51 Oxycodone Hcl Immed Release 5 Mg Tablet PO 07/27/24 13:44 10 mg ONCE ONE Administration Medical Decision Making Medical Decision Making MDM Narrative: Patient with MSSA bacteremia with IV drug use with lumbar diskitis still using IV drugs noncompliant to inpatient IV treatment comes back again for back pain will get case management to place him in usp for IV antibiotic treatment will place PICC line Differential Diagnosis Differential Diagnoses: The differential diagnosis associated with the presentation includes Admission/Observation Consideration of admission/observation: Escalation of care including admission/observation considered Consult Healthcare Provider Management of the patient was discussed with: Hospitalist Lab Data MDM Lab Attestation statement: I reviewed the patient's lab results. 07/25/24 13:40 07/25/24 13:40 Labs: Lab Results 07/25/24 Range/Units 13:40 WBC 6.6 (4.8-10.8) X10*3/uL RBC 4.75 (4.60-5.80) X10*6/uL Hgb 9.9 L (14.0-18.0) g/dl Hct 31.6 L (42.0-52.0) % MCV 66.5 L (80.0-98.0) fL MCH 20.8 L (27.0-33.0) pg MCHC 31.3 (31.0-36.0) g/dl RDW 16.1 H (11.0-16.0) % Plt Count 264 D (160-400) X10*3/uL MPV 10.9 (9.4-12.4) fL Immature Gran % (Auto) 0.5 H (0.0-0.4) % Neut % (Auto) 52.9 (45-73) % Lymph % (Auto) 28.7 (20-40) % [place] % (Auto) 14.0 H (2-11) % Eos % (Auto) 3.1 (0-4) % Baso % (Auto) 0.8 (0-2) % Lymph # (Auto) 1.9 (1.2-4.9) X10*3/uL [place] # (Auto) 0.9 (0.1-1.2) X10*3/uL Eos # (Auto) 0.2 (0.0-0.4) X10*3/uL Baso # (Auto) 0.1 (0.0-0.2) X10*3/uL Abs Immat Gran (auto) 0.03 (0.00-0.03) X10*3/uL Absolute Neuts (auto) 3.5 (2.0-8.3) x10*3/uL Absolute Nucleated RBC 0.000 (0.0-0.012) X10*3/uL Nucleated RBC % (auto) 0.0 (0.0-0.2) /100WBC Sodium 137 (135-145) mmol/L Potassium 3.4 D (3.3-5.1) mmol/L Chloride 101 (96-108) mmol/L Carbon Dioxide 25 (22-29) mmol/L Anion Gap 14 (12-20) BUN 3 L (9-16) mg/dL Creatinine 0.55 (0.5-1.4) mg/dL Estim Creat Clear Calc 180.6 Estimated GFR > 60 Random Glucose 101 (60-115) mg/dL Lactic Acid 1.2 (0.5-2.0) mmol/L Calcium 8.9 D (8.4-10.2) mg/dL Total Bilirubin 0.9 (0.0-1.0) mg/dL Direct Bilirubin 0.4 (0.0-0.5) mg/dL AST 40 H (5-37) U/L ALT 35 (0-40) U/L Alkaline Phosphatase 56 (39-117) U/L Total Protein 7.6 (6.5-8.0) g/dL Albumin 3.7 (3.5-5.0) g/dL Discharge Plan Discharge Clinical Impression: Opioid use disorder, Bacteremia due to methicillin susceptible Staphylococcus aureus (MSSA) Diskitis Qualifiers: Spinal region: thoracic Qualified Code(s): M46.44 - Discitis, unspecified, thoracic region Patient Disposition: Still a Patient Prescriptions: No Action gabapentin 800 mg tablet 800 mg PO TID methadone [Methadose] 10 mg/mL Concentrate 80 mg PO DAILY Qty: 1000 0RF Rx Instructions: Partial Fill upon patient request. clonidine HCl 0.1 mg tablet 0.1 mg PO BEDTIME hydroxyzine HCl 50 mg tablet 50 mg PO BEDTIME Referrals: [facility] [Outside] Print Language: Wolof
[2024-07-25 13:48] LABS: MANUAL DIFF FLAG NO
[2024-07-25 14:01] LABS: Lactic Acid 1.2 mmol/L (0.5-2.0)
[2024-07-25 14:13] LABS: Alanine Aminotransferase 35 U/L (0-40); Albumin Level 3.7 g/dL (3.5-5.0); Alkaline Phosphatase 56 U/L (39-117); Anion Gap 14 (12-20); Aspartate Amino Transferase 40 U/L (5-37); Bilirubin Direct 0.4 mg/dL (0.0-0.5); Bilirubin Total 0.9 mg/dL (0.0-1.0); Blood Urea Nitrogen 3 mg/dL (9-16); Calcium 8.9 mg/dL (8.4-10.2); Carbon Dioxide 25 mmol/L (22-29); Chloride 101 mmol/L (96-108); Creatinine Clr Calc Pharmacy 180.6; Estimated Glomerular Filt Rate > 60; Glucose Random 101 mg/dL (60-115); Potassium 3.4 mmol/L (3.3-5.1); Sodium 137 mmol/L (135-145); Total Protein 7.6 g/dL (6.5-8.0)
[2024-07-25 14:59] LABS: Basophils Absolute Auto 0.1 X10*3/uL (0.0-0.2); Basophils Percent Auto 0.8 % (0-2); Eosinophils Absolute Auto 0.2 X10*3/uL (0.0-0.4); Eosinophils Percent Auto 3.1 % (0-4); Hematocrit 31.6 % (42.0-52.0); Hemoglobin 9.9 g/dl (14.0-18.0); Imm Gran Abs Auto 0.03 X10*3/uL (0.00-0.03); Imm Gran Pct Auto 0.5 % (0.0-0.4); Lymphocytes Absolute Auto 1.9 X10*3/uL (1.2-4.9); Lymphocytes Percent Auto 28.7 % (20-40); Mean Corpuscular HGB Conc 31.3 g/dl (31.0-36.0); Mean Corpuscular Hemoglobin 20.8 pg (27.0-33.0); Mean Corpuscular Volume 66.5 fL (80.0-98.0); Mean Platelet Volume 10.9 fL (9.4-12.4); Monocytes Absolute Auto 0.9 X10*3/uL (0.1-1.2); Neutrophils Absolute Auto 3.5 x10*3/uL (2.0-8.3); Neutrophils Percent Auto 52.9 % (45-73); Platelet Count 264 X10*3/uL (160-400); Red Blood Count 4.75 X10*6/uL (4.60-5.80); Red Cell Distribution Width 16.1 % (11.0-16.0); White Blood Count 6.6 X10*3/uL (4.8-10.8)
--- NOTE | 2024-07-25 22:00 | PC.NURSE ---
Pt A&Ox3, reports 10/10 constant, mid back pain radiating to left side of ribs. Pt reports he was Admitted for IV ABX and left AMA x 2 most recently 1 week ago. Pt reports he is a daily vodka drinker, and IVDU. Last use yesterday. Reports going through withdrawals and having seizures.
--- NOTE | 2024-07-25 22:00 | PC.NURSE ---
Pt difficult stick. Pt peprts having a PICC line for ABX.
--- NOTE | 2024-07-25 22:17 | MHC.CM.ED ---
CM met with patient at the request of Dr. Philip. Pt resting with eyes closed, but responds to name and was active in CM interview. Pt was admitted to [facility] 06/24-07/04. MSSA Bacteremia and thoracic spetic arthritis. Had a PICC line for 6 weeks of IV antibiotics and had a bed at [facility]. Pt left [facility] AMA, PICC line removed and No rehab. Pt returned on 07/05-07/08. PICC line re-inserted and pt D/C to [facility] for 6 weeks IV antibiotics. [facility]. PICC line removed. Pt returned to [facility] tonight with fever, increasing back pain and requests to return to [facility] for IV antibiotic therapy. Pt is homeless. Has NO PCP or HCP. Was using a walker at [facility], but does not have one now. Has no services. Last used IV drugs and ETOH yesterday per patient. Pt does have a hx of ETOH withdrawl. Encouraged patient to meet with addiction medicine. Pt is aware that he needs rehab for his substance abuse, as well as IV antibiotics. Will place referrals at [facility] and [facility]. Pt aware that PICC line will be placed once a bed has been obtained for his IV therapy. Will also need guest dosing arranged once a facility is obtained.
[2024-07-25] MEDS: Acetaminophen 325 MG TABLET 650 MG PO (22:50)
[2024-07-25] MEDS: Ibuprofen 600 MG TABLET PO (22:50)
[2024-07-25] MEDS: ceFAZolin Sodium/Dextrose,Iso 2 GM/50 ML PIGGYBACK IV (22:51)
--- NOTE | 2024-07-25 22:51 | PC.NURSE ---
IV obtained at this time.
[2024-07-25 23:01] VITALS: BP 109/64; PULSE 92; RESP 18; TEMP 38.2; O2SAT 96
[2024-07-25] MEDS: 0.9 % Sodium Chloride 1,000 ML 999 ML IV (23:25)
[2024-07-25 23:50] VITALS: TEMP 37.7
[2024-07-26] VITALS (8 sets, daily range): BP systolic 108–173; BP diastolic 55–81; PULSE 59–109; RESP 16–20; TEMP 36.6–36.9; O2SAT 97–98
--- NOTE | 2024-07-26 05:14 | PC.NURSE ---
Pt appears to be sleeping at this time, equal, non labored respirations, no apparent distress noted. Plan of care ongoing.
--- NOTE | 2024-07-26 07:40 | PC.NURSE ---
kitchen called for breakfast tray
--- NOTE | 2024-07-26 08:37 | PC.NURSE ---
pateint resting on stretcher with blankets over face, asked patient how he was feeling pt states 'fine' asked patient if he wanted his breakfast tray at this time, patient responds not now, put it on my bed' patient proceeded to place meal tray on floor and go back to bed. plan of care ongoing
--- NOTE | 2024-07-26 10:14 | MHC.CM.ED ---
Addendum entered by Carla Ca 07/26/24 14:34: Gaurav Canas WELL DRILLER HELPER of Recovery team, patient was started on Methadone 20mg because he has not received Methadone in over a week. Original Note: Patient remains in ER. [facility] is willing to offer a bed. Order has already been placed for PICC insertion. Addiction services consult is pending. Will need methadone guest dosing arranged at [facility] in [place]. Will need DM PASRR Level 2 and MDS completed and faxed to [facility]. Continue to monitor for d/c needs.
[2024-07-26] MEDS: LORazepam 1 MG TABLET 2 MG PO ×3 (10:25→22:26)
--- NOTE | 2024-07-26 10:42 | PC.NURSE ---
IR called, patient to be going down at around 1 per RN
--- NOTE | 2024-07-26 11:17 | PC.NURSE ---
addiction medicine at bedside for patient, patient providing vague answers, unable to complete full assessment on patient at this time. addiction RN states she will check back in with patient later
--- NOTE | 2024-07-26 12:19 | MHC.RECOVRN ---
Met with patient in ED [place] [facility]. Patient alert and oriented, not making eye contact, kept towel over eyes until asked to please remove, he pulled it down stated good now? and pulled right back up. COWS of a 9 for me upon initial assessment, Patient was not forthcoming with information when asked, stated I'm cold, why so many questions! . Patient acknowledged receiving methadone and having good effect from this in previous weeks, states he has not received any since leaving previous facility. States I'm feeling the withdrawals from it now . At time of my assessment pt pulse of 60 skin on face was moist no restlessness noted Pupils were pinned Denies (does not answer) join pain No runny nose noted Acknowledges GI upset but refuses to elaborate Tremor can be felt but not observed no yawning Pt irritable with my questions Piloerrection of skin and hairs standing up on arms
[2024-07-26] MEDS: methADONE HCl 20 MG/2 ML ORAL.CONC PO (13:14)
--- NOTE | 2024-07-26 13:30 | PC.NURSE ---
patient medicated per JAN with 20mg of methadone, provided with lunch tray, had a few bites and then stated he did not want to keep it anymore. awaiting IR for PICC line placement
--- NOTE | 2024-07-26 14:45 | PC.NURSE ---
Patient escorted via stretcher to interventional radiology for PICC line insertion. Belongings on his stretcher with pt labels on pt belongings bags. Changed into hospital attire just prior to going to IR.
--- NOTE | 2024-07-26 15:06 | PC.NURSE ---
patient to IR at this time for PICC line placement. IV abx order noticed to be incorrect dated for august. verbal order given to place new order for dose today
--- NOTE | 2024-07-26 16:11 | PC.NURSE ---
patient remains at IR, IV abx to be administered upon return then patient to be transferred to overflow unit per credit charge authorizer
[2024-07-26] MEDS: ceFAZolin Sodium/Dextrose,Iso 2 GM/50 ML PIGGYBACK IV (18:11)
[2024-07-26] MEDS: oxyCODONE HCl Immed Release 5 MG TABLET 10 MG PO (18:57)
--- NOTE | 2024-07-26 19:52 | PC.NURSE ---
pt accidentally ripped out iv. new iv established to L. forearm. pt is frustrated about being in [place]. career services manager aware. verbal reassurance and attempt to get pt comfortable. pt resting at this time.
--- NOTE | 2024-07-26 20:57 | P.EN_ITS ---
Event Note Date of Service: 07/26/24 Event Note: Addiction note Patient awaiting transfer to [facility] Recently admitted to [facility] and initiated on methadone at that time Dose at time of discharge to SNF was 80mg (07/08 ) Left SNF on 07/19 prior to completing abx treatment Did not continue with methadone since then Seen by utility tractor operator --note reviewed Plan: -methadone 20mg x1 -methadone 10mg PRN -methadone 40mg in AM Time Spent With Patient Time: Total time managing care of this patient today ____ minutes.
--- NOTE | 2024-07-26 21:13 | PC.NURSE ---
report given to overflow rn darren awaiting transport.
--- NOTE | 2024-07-26 22:11 | PC.NURSE ---
Patient is requesting Methadone 10mg PRN dose & Ativan 2mg PRN dose. Awaiting second RN to come to Overflow to witness waste of Methadone at [facility]. Patient had urinary accident and small bowel accident. Alert & oriented, but slightly agitated. Cooperative with this RN. Linens changed, given hospital pants to change into. Warm blankets provided for comfort for feeling 'chills'. emergency medical technician/driver (Leatha Aggarwal) contacted to get second RN to come to overflow [facility] for Methadone.
--- NOTE | 2024-07-26 22:30 | PHA.MEDREC ---
Pharmacy Consult ? Medication Reconciliation Pharmacy has completed the medication reconciliation. Spoke to patient and confirmed medication list. Patient was alert enough to name the medication, dose and direction. He said he last took his medications about a week ago.
[2024-07-26] MEDS: methADONE HCl 20 MG/2 ML ORAL.CONC 10 MG PO (23:33)
[2024-07-27 00:30] VITALS: BP 120/80; PULSE 79; RESP 18; TEMP 36.7; O2SAT 94
[2024-07-27] MEDS: oxyCODONE HCl Immed Release 5 MG TABLET 10 MG PO ×3 (00:37→20:10)
--- NOTE | 2024-07-27 01:30 | PC.NURSE ---
Took report from off-going RN at 2300 hrs. Pt is a 44 y/o homeless male who presents for evaluation of back pain, needing antibiotics. Pt was admitted at long-term care facility for IV abx for staph infection in back, but left AMA and did not complete treatment. Off antibiotics for approximately one week. Pt is calm, cooperative, and appropriate with staff. Verbalizes needs. Skin is W/P/D and no acute distress is observed. Observation for symptoms of withdrawal is ongoing. Plan is for placement in long-term care facility in [place]. Will continue to monitor for any changes.
--- NOTE | 2024-07-27 01:38 | PC.NURSE ---
Pt denies any compaints at this time following medication administration. Denies headache, tremors, hallucinations, nausea, pain, and chills. Current score on CIWA scale is 0. Will continue to monitor for any changes.
--- NOTE | 2024-07-27 02:27 | PC.NURSE ---
Pt is sleeping, semi-fowers in bed, appears comfortable. Arousable with verbal stimuli. Verbalizes needs appropriately. No acute distress observed
[2024-07-27] MEDS: LORazepam 1 MG TABLET 2 MG PO (03:36)
[2024-07-27 03:52] VITALS: BP 124/68; PULSE 70; RESP 16; TEMP 37; O2SAT 97
--- NOTE | 2024-07-27 06:05 | PC.NURSE ---
Pt refused vital signs at 0600 hrs, verbalized wanting to be left alone.
--- NOTE | 2024-07-27 09:14 | MHC.CM.ED ---
Addendum entered by Carla Ca 07/27/24 13:41: [facility] PASRR Level 2 obtained. Original Note: Patient remains in ER overflow. Waiting for [facility] PASRR Level 2. Spoke with Moses in [place] intake. Clinicals faxed to [phone] intake. MDS already submitted to [facility]. Continue to monitor for d/c needs.
[2024-07-27] MEDS: methADONE HCl 20 MG/2 ML ORAL.CONC 40 MG PO (09:30)
--- NOTE | 2024-07-27 10:41 | MHC.EDTECH ---
Cleaned patients room and changed linen.
[2024-07-27 11:26] VITALS: BP 144/64; PULSE 97; RESP 20; TEMP 36.4; O2SAT 98
--- NOTE | 2024-07-27 11:30 | PC.NURSE ---
patient returned from picc line placement, alert and oriented x4, ambulatory to the bathroom, given fresh cup of coffee. patient VSS, respirations equal and unlabored. patient picc line in place, dressing clean, dry and intact. no sign of blood or drainage, curos cap on catheter port
--- NOTE | 2024-07-27 11:41 | PM.PROC ---
Brief Operative Note Date of procedure: 07/27/24 Pre-op diagnosis: Needs access for IV antibiotics Post-op diagnosis: same Procedure: Right arm, single lumen, 39 cm PICC placed using US and Fluoro. Tip at cavoatrial junction. Ok for use. Condition: stable
--- NOTE | 2024-07-27 12:22 | PC.NURSE ---
patient resting quietly in room, sitting and eating lunch. respirations equal and unlabored skin dry and intact
--- NOTE | 2024-07-27 13:53 | PC.NURSE ---
patient medicated per JAN for back pain described 08/25
--- NOTE | 2024-07-27 15:01 | MHC.EDTECH ---
Patient refused vitals.
--- NOTE | 2024-07-27 17:17 | MHC.EDTECH ---
Patient refused vital signs.
[2024-07-27] MEDS: Ibuprofen 600 MG TABLET PO (17:50)
--- NOTE | 2024-07-27 17:51 | PC.NURSE ---
patient requested motrin for teeth pain described at 10/10 pain. patient medicated per MAR
--- NOTE | 2024-07-27 19:28 | PC.NURSE ---
this rn assumed care of pt, pt resting in stretcher, no acute distress noted. pt refusing vitals at this time.
[2024-07-27 20:00] VITALS: BP 129/76; PULSE 82; RESP 12; TEMP 37; O2SAT 99
--- NOTE | 2024-07-27 20:13 | PC.NURSE ---
pt reporting 10/10 generalized body pain at this time, Kayode SHIN aware, medication order placed. pt medicated per jan, tolerated well with water.
[2024-07-28] MEDS: LORazepam 1 MG TABLET 2 MG PO ×3 (02:02→16:46)
[2024-07-28 05:08] VITALS: BP 137/84; PULSE 52; RESP 14; TEMP 37.1; O2SAT 99
--- NOTE | 2024-07-28 07:29 | MHC.EDTECH ---
this tech assumed care of pt at 0645, pt is asleep on stretcher at this time and is in no apparent distress
--- NOTE | 2024-07-28 08:50 | PC.NURSE ---
Pt continues to sleep this morning, breathing even and unlabored. Breakfast at bedside, pt reports he will eat later. Plan of care ongoing, waiting to placement at short term rehab for ABX.
[2024-07-28] MEDS: ceFAZolin Sodium/Dextrose,Iso 2 GM/50 ML PIGGYBACK IV ×2 (10:14→16:47)
[2024-07-28] MEDS: methADONE HCl 20 MG/2 ML ORAL.CONC 55 MG PO (10:27)
[2024-07-28] MEDS: oxyCODONE HCl Immed Release 5 MG TABLET 10 MG PO ×2 (10:29→18:38)
--- NOTE | 2024-07-28 10:34 | PC.NURSE ---
Per reports, pts PICC line able to be used. Provider alerted and asked what plan is for ABX. ABX started per JAN. Pt medicated for pain.
--- NOTE | 2024-07-28 12:44 | PC.NURSE ---
Medicated per MAR with ativan for withdrawal symptoms.
[2024-07-28 14:00] VITALS: BP 138/82; PULSE 74; RESP 18; TEMP 36.7; O2SAT 97
--- NOTE | 2024-07-28 15:42 | MHC.RECOVRN ---
Attempted to meet with pt to discuss methadone titration and effectiveness. Opened pts door, pt states I'm sleeping. When t/w explained the nature of the visit pt continued to state I'm sleeping. When t/w asked how pt is feeling with the methadone, pt stated sleeping. Unable to gather other information. Floresita Barry APRN, aware.
--- NOTE | 2024-07-28 16:13 | MHC.CM.ED ---
At this time, patient booked to transport to [facility] tomorrow 06/28 at 10am. Received notification from Elder at [facility] that they did not receive [facility] leveling. T/W attempted to contact [facility] via telephone. Unable to get through. Just kept receiving a busy signal. Sent an email to Debby Edwards at [facility] requesting leveling be faxed. Patient will not be able to transfer to facility if [facility] does not receive leveling. Continue to monitor for d/c needs.
--- NOTE | 2024-07-28 17:07 | MHC.EDTECH ---
this tech was able to obtain vital signs and they were charted. dinner tray was given and eaten. pt remains sleeping at this time.
[2024-07-29] MEDS: ceFAZolin Sodium/Dextrose,Iso 2 GM/50 ML PIGGYBACK IV (00:12)
[2024-07-29 05:37] VITALS: BP 136/86; PULSE 86; RESP 14; TEMP 37.1; O2SAT 96
[2024-07-29] MEDS: methADONE HCl 20 MG/2 ML ORAL.CONC 55 MG PO (08:53)
--- NOTE | 2024-07-29 09:26 | MHC.CM.ED ---
Call placed to Tamar Carlson at [facility]. She has the auth for pt to transfer to [facility] and will upload it to the [facility] as well as call admissions and inform them of the approval as to not delay the d/c. Pt will transport via [employer] at 10am. Last dose letter will accompany pt's transfer paperwork. Pt aware and in agreement w/d/c plan.
[2024-07-29 09:43] VITALS: BP 136/86; PULSE 86; RESP 14; TEMP 37.1; O2SAT 96
== END 2024-07-29 09:44 ==
PROVIDERS: Physician Assistant Medical; Emergency Provider Internal Medicine
DX: M54.50 Low back pain, unspecified (principal); B95.61 Methicillin susceptible Staphylococcus aureus infection as the cause of diseases classified elsewhere; F11.10 Opioid abuse, uncomplicated; R50.9 Fever, unspecified; F17.210 Nicotine dependence, cigarettes, uncomplicated; Z79.899 Other long term (current) drug therapy
CPT/HCPCS: 36415; 36573; 80048; 80076; 83605; 85025; 87040; 96361; 96365; 96366; 99285; J0690

== ENCOUNTER → 2024-07-26 06:54 | Outpatient (BNV) | payer MEDICAID, SELFPAY | PROVIDERS: Emergency Provider Internal Medicine; Visit Provider Radiology Diagnostic Radiology | DX: M46.40 Discitis, unspecified, site unspecified (principal); Z79.2 Long term (current) use of antibiotics | CPT/HCPCS: 36573 ==

== ENCOUNTER 2025-06-30 07:50 | Emergency (ER) | payer MEDICAID, SELFPAY ==
--- NOTE | ~2025-06-30 | XR_ITS ---
EXAMINATION: XR WRIST 3 OR MORE VIEWS RIGHT, XR HAND 3 OR MORE VIEWS RIGHT HISTORY: rt wrist pain COMPARISON: Comparison is made with the prior examination dated 05/27/2020. FINDINGS: Six views of the right hand and wrist are submitted. Osseous mineralization is normal. There is no fracture or dislocation. The joint spaces are preserved. There is diffuse soft tissue swelling. XR/XR wrist RT min 3V IMPRESSION: Diffuse soft tissue swelling. No osseous abnormality is identified. Electronically signed by: Javier Aguirre MD 06/30/2025 10:05 AM EDT
--- NOTE | ~2025-06-30 | US_ITS ---
EXAMINATION: US DOPPLER RIGHT UPPER EXTREMITY LIMITED CLINICAL INFORMATION: Swelling/edema, right upper extremity. COMPARISON: None available. TECHNIQUE: Ultrasound along with color Doppler imaging and spectral analysis was performed of the right upper extremity. FINDINGS: Right subclavian artery: Normal patency. Peak systolic velocities range 121-158 cm/s. Monophasic waveform. Right axillary artery: Normal patency. Peak systolic velocity: 153 cm/s. Monophasic waveform. Right brachial artery: Normal patency.Peak systolic velocity: Range 163-208 cm/s Right radial artery: Normal patency.Peak systolic velocity: 147 cm/s. Monophasic waveform. Right ulnar artery: Normal patency.Peak systolic velocity: 95 cm/s. Monophasic waveform. US/US arterial duplex UE RT IMPRESSION: Normal patency throughout the interrogated arteries with the monophasic waveforms. Electronically signed by: Dayne Abrams MD 06/30/2025 12:22 PM EDT
--- NOTE | ~2025-06-30 | XR_ITS ---
EXAMINATION: XR WRIST 3 OR MORE VIEWS RIGHT, XR HAND 3 OR MORE VIEWS RIGHT HISTORY: rt wrist pain COMPARISON: Comparison is made with the prior examination dated 05/27/2020. FINDINGS: Six views of the right hand and wrist are submitted. Osseous mineralization is normal. There is no fracture or dislocation. The joint spaces are preserved. There is diffuse soft tissue swelling. XR/XR hand RT min 3V IMPRESSION: Diffuse soft tissue swelling. No osseous abnormality is identified. Electronically signed by: Javier Aguirre MD 06/30/2025 10:05 AM EDT
[2025-06-30 07:56] VITALS: BP 118/60; BP 136/72; PULSE 83; PULSE 86; RESP 18; TEMP 37.2; O2SAT 100; O2SAT 99; BMI 25.8
--- OUTSIDE RECORDS SUMMARY | 2025-06-30 08:29 | XMS_ITS | Clinical Summary ---
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 HEPATITIS B SURFACE AB QNT Routine 05/18/2024 10:03 AM EDT Routine health maintenance from Last 3 Months or Most Recently Relevant to Health Maintenance Results * Gabapentin, MS, Ur RFX (05/11/2025 12:00 AM EDT) Only the most recent of2 resultswithin the time period is included. Anticonvulsant s, Urine +POSITIVE+ [facility] Gabapentin, Urine PRESENT [facility] 05/11/2025 05/11/2025 Comment:Urine, Random Releas e Narrative [facility] - 05/14/2025 6:05 PM EDT Performed at: [facility] [address] [place] [id number] Food Demonstrator: Lilia Scott, Phone: [phone] Dara Manuel NP HISTORICAL/NON ORDERABLE LABS Final Result Performing Organization Address [facility] de Phone Number [facility] * Amphetamines, MS, Ur RFX (05/11/2025 12:00 AM EDT) Only the most recent of2 resultswithin the time period is included. Amphetamines Confirmation, Urine +POSITIVE+ [facility] Methamphetamine, Urine Not Detected ng/mg creat [facility] 1 Amphetamine, Urine 5,537 ng/mg creat [facility] 1 MDMA (Ecstasy), Urine Not Detected ng/mg creat [facility] 1 MDA (Ecstasy metabolite), Urine Not Detected ng/mg creat [facility] 1 05/11/2025 05/11/2025 Comment:Urine, Random Releas e Narrative [facility] - 05/14/2025 6:05 PM EDT Performed at: [facility] [address] [place] [id number] Food Demonstrator: Lilia Scott, Phone: [phone] us Dara Manuel NP HISTORICAL/NON ORDERABLE LABS Final Result Performing Organization Address [facility] de Phone Number [facility] * Utox for Gabapentin (05/11/2025 12:00 AM EDT) Only the most recent of2 resultswithin the time period is included. Gabapentin, Urine CUTOFF:1.0 ug/mL [facility] Comment:Further testing carl cated Urine (Urine, Random) 05/11/2025 05/11/2025 Comment:Urine, Random Releas e Narrative [facility] 1 - 05/14/2025 6:05 PM EDT Test(s) [id number] IA was developed and its performance characteristics determined by [facility]. It has not been cleared or approved by the Food and Drug Administration. Performed at: 01 - [facility] [address] [id number] Food Demonstrator: Lilia España [facility], Phone: [phone] Dara Manuel NP LAB URINE ORDERABLES Final Res ult [facility] * Utox for OBAT and Pain (05/11/2025 12:00 AM EDT) Only the most recent of2 resultswithin the time period is included. Summary Report FINAL [facility] Comment: Amphetamines, MS, Ur RFX Gabapentin, MS, Ur RFX [employer] Flex 14, Urine Gabapentin, Scr w/Conf, Ur Test Result Flag Units Drug Present Amphetamine 5537 ng/mg creat Amphetamine is available as a schedule II prescription drug. Buprenorphine 419 ng/mg creat Norbuprenorphine >847 ng/mg creat Source of buprenorphine is a scheduled prescription medication. Norbuprenorphine is an expected metabolite of buprenorphine. Gabapentin PRESENT Test Result Flag Units Ref Range Creatinine 118 mg/dL >=20 Declared Medications: Medication list was not provided. For clinical consultation, please call . Creatinine, Urine 118 >=20 mg/dL [facility] Amphetamines IA, Urine CUTOFF:3 00 ng/mL [facility] Comment:Further testing carl cated Benzodiazepines, Urine Negative [facility] 1 Diazepam, Urine Not Detected ng/mg creat [facility] 1 Desmethyldiazepam, Urine Not Detected ng/mg creat [facility] 1 Oxazepam, Urine Not Detected ng/mg creat [facility] 1 Temazepam, Urine Not Detected ng/mg creat [facility] 1 Comment: Expected metabolism of benzodiazepine class drugs: Parent Drug Detected Metabolites Diazepam: Desmethyldiazepam, Temazepam, Oxazepam Chlordiazepoxide: Desmethyldiazepam, Oxazepam Clorazepate: Desmethyldiazepam, Oxazepam Halazepam: Desmethyldiazepam, Oxazepam Temazepam: Oxazepam Oxazepam: None Alprazolam, Urine Not Detected ng/mg creat [facility] 1 Alpha-hydroxyalprazo jaramillo, Urine Not Detected ng/mg creat [facility] 1 Desalkylflurazepam, Urine Not Detected ng/mg creat [facility] 1 Lorazepam, Urine Not Detected ng/mg creat [facility] 1 Alpha-hydroxytriazol am, Urine Not Detected ng/mg creat [facility] 1 Clonazepam, Urine Not Detected ng/mg creat [facility] 1 7-aminoclonazepam, Urine Not Detected ng/mg creat [facility] 1 Midazolam, Urine Not Detected ng/mg creat [facility] 1 Alpha-hydroxymidazol am, Urine Not Detected ng/mg creat [facility] 1 Flunitrazepam, Urine Not Detected ng/mg creat [facility] 1 Desmethylflunitrazep am, Urine Not Detected ng/mg creat [facility] 1 Cocaine Metabolite IA, Urine Negative CUTOFF:1 50 ng/mL [facility] 1 ETHYL ALCOHOL Enzymatic, Urine Negative CUTOFF:0 .020 g/dL [facility] 1 6-Acetylmorphine IA, Urine Negative CUTOFF:1 0 ng/mL [facility] 1 OPIATE CLASS IA, Urine Negative CUTOFF:1 00 ng/mL [facility] 1 OXYCODONE CLASS IA, Urine Negative CUTOFF:1 00 ng/mL [facility] 1 METHADONE MTB IA, Urine Negative CUTOFF:1 00 ng/mL [facility] 1 Methadone IA, Urine Negative CUTOFF:1 00 ng/mL [facility] 1 BUPRENORPHINE, Urine +POSITIVE+ [facility] 1 Buprenorphine, Urine 419 ng/mg creat [facility] 1 Norbuprenorphine, Urine >847 ng/mg creat [facility] 1 FENTANYL & ANALOGUES, Urine Negative [facility] 1 Fentanyl, Urine Not Detected ng/mg creat [facility] 1 Norfentanyl, Urine Not Detected ng/mg creat [facility] 1 TAPENTADOL IA, Urine Negative CUTOFF:2 00 ng/mL [facility] 1 Tramadol IA, Urine Negative CUTOFF:2 00 ng/mL [facility] 1 Barbiturates IA, Urine Negative CUTOFF:2 00 ng/mL [facility] 1 Phencyclidine (PCP) IA, urine Negative CUTOFF:2 5 ng/mL [facility] 1 Urine (Urine, Random) 05/11/2025 05/11/2025 Comment:Urine, Random Releas e Narrative [facility] - 05/14/2025 6:05 PM EDT Test(s) [id number] IA was developed and its performance characteristics determined by [facility]. It has not been cleared or approved by the Food and Drug Administration. Performed at: - [facility] [address] [place] [id number] Food Demonstrator: Lilia España [facility], Phone: [phone] Dara Manuel [employer] LAB URINE ORDERABLES Final Res ult [facility] * HIV p24 Antigen/Antibody With Reflex to Confirmation (12/12/2024 9:27 AM EST) HIV Ab/p24 Ag Screen Non Reactive Non Reactive [facility] 1 Comment: HIV-1/HIV-2 antibodies and HIV-1 p24 antigen were NOT detected. There is no laboratory evidence of HIV infection. HIV Negative Blood Venous blood specimen / Unknown 12/12/2024 9:27 AM EST 12/12/2024 Narrative [facility] 1 - 12/14/2024 6:06 AM EST Performed at: - [address] [id number] Food Demonstrator: Mague Jung MD, Phone: [phone] us Yenny JENNINGS LAB BLOOD ORDERABLES Fi nal Result [facility] * (ABNORMAL) Hemoglobin A1c (12/12/2024 9:27 AM EST) Hemoglobin A1c 6.9(H) 4.0 - 5.6 % [facility] 1 Comment: Prediabetes: 5.7 - 6.4 Diabetes: >6.4 Glycemic control for adults with diabetes: <7.0 Blood Venous blood specimen / Unknown 12/12/2024 9:27 AM EST 12/12/2024 Narrative [facility] 1 - 12/12/2024 4:05 PM EST Performed at: [address] [place] [id number] Food Demonstrator: Wesley Meng MD, Phone: [phone] Yenny Floresita Sapna FREIRE LAB BLOOD ORDERABLES Fi nal Result Performing Organization Address [facility] de Phone Number [facility] * (ABNORMAL) Lipid Panel, Standard (12/12/2024 9:27 AM EST) Pathologist [facility] Cholesterol, Total 144 0 - 199 mg/dL [facility] 1 Triglycerides 95(L) 150 - 199 mg/dL [facility] 1 Comment: Triglyceride Level: Risk Classification <150 Normal 150 - 199 Borderline High 200 - 499 High ->=500 HDL Cholesterol 56 40 - 59 mg/dL [facility] 1 VLDL Cholesterol Solomon 18 5 - 40 mg/dL [facility] 1 LDL Chol Calc (NIH) 70 0 - 99 mg/dL [facility] 1 Blood Venous blood specimen / Unknown 12/12/2024 9:27 AM EST 12/12/2024 Narrative [facility] 1 - 12/12/2024 2:05 PM EST Performed at: [address] [id number] Food Demonstrator: Wesley Meng MD, Phone: [phone] [facility] LAB BLOOD ORDERABLES Fi nal Result Performing Organization Address [facility] de Phone Number [facility] * Hepatitis B Surface Antibody, Quantitative (05/18/2024 10:03 AM EDT) Pathologist [facility] Hepatitis B Surf Ab Quant 72.2 Immunity>10 mIU/mL [facility] Comment: Status of Immunity Anti-HBs Level Inconsistent with Immunity 0.0 - 10.0 Consistent with Immunity >10.0 Blood Venous blood specimen / Unknown 05/18/2024 10:03 AM EDT 05/18/2024 Narrative [facility] 1 - 05/20/2024 12:05 PM EDT Performed at: 01 - [facility] [address] [id number] Food Demonstrator: Mague Jung MD, Phone: [phone] us Yenny JENNINGS LAB BLOOD ORDERABLES Fi nal Result [facility] 1 from Last 3 Months or Most Recently Relevant to Health Maintenance Insurance C3 Member Subscriber Plan / Payer (Ef fective 2025-Present) Name:Mark Mays Relation to Subscriber:Self Name:Mark Mays Payer ID:Not on file Group ID:Not on file Type:Medicaid Address: [address] Care Teams Capacity Planning Analyst Relationship Specialty Start Date End Date Yenny Alejo AGNP PCP - General Internal Medicine 05/13/24 Jamilah Hilario, RN Registered Nurse Substance Use Disorder Treatment 01/03/25 Leonor Mace MA Substance Use Disorder Treatment 01/03/[address] [address] 06/23/[address] Shutdown Coordinator 12/17/24
[2025-06-30 08:31] LABS: Cannabinoid Screen Urine POSITIVE (Not Detect)
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
[2025-06-30] MEDS: 0.9 % Sodium Chloride 2,449.41 ML 2449.41 ML IV (08:36)
[2025-06-30 08:44] LABS: Hematocrit 24.4 % (42.0-52.0); Hemoglobin 8.1 g/dl (14.0-18.0); Imm Gran Abs Auto 0.34 X10*3/uL (0.00-0.03); Imm Gran Pct Auto 1.4 % (0.0-0.4); Lymphocytes Absolute Auto 3.2 X10*3/uL (1.2-4.9); MANUAL DIFF FLAG SCAN; Mean Corpuscular HGB Conc 33.2 g/dl (31.0-36.0); Mean Corpuscular Hemoglobin 20.7 pg (27.0-33.0); NRBC Abs Auto 0.000 X10*3/uL (0.0-0.012); NRBC Pct Auto 0.0 /100WBC (0.0-0.2); Platelet Count 385 X10*3/uL (160-400); Red Blood Count 3.91 X10*6/uL (4.60-5.80); SCAN SMEAR FLAG 1; White Blood Count 23.5 X10*3/uL (4.8-10.8)
[2025-06-30 08:46] LABS: Mean Corpuscular Volume 62.4 fL (80.0-98.0)
[2025-06-30 08:55] LABS: Anion Gap 12 (12-20); Blood Urea Nitrogen 11 mg/dL (9-16); Calcium 8.0 mg/dL (8.4-10.2); Carbon Dioxide 24 mmol/L (22-29); Chloride 94 mmol/L (96-108); Creatinine Clr Calc Pharmacy 144.4; Estimated Glomerular Filt Rate > 60; Potassium 3.4 mmol/L (3.3-5.1); Sodium 127 mmol/L (135-145)
[2025-06-30] MEDS: vancomycin/NS 2,000 MG/500 ML PLAST..BAG 250 MG IV (10:02)
[2025-06-30 10:35] VITALS: BP 108/85; PULSE 91; RESP 17; TEMP 37; O2SAT 99
[2025-06-30 12:07] VITALS: BP 142/97; PULSE 86; RESP 20; O2SAT 95
[2025-06-30 12:10] VITALS: BP 115/64; PULSE 80; RESP 18; O2SAT 96
--- NOTE | 2025-06-30 12:16 | PM.CNGS ---
History of Present Illness Consult details Consult date: 06/30/25 Requesting physician: Leilani Jarvis Narrative: Patient is a 45-year-old male IV drug use abuse or using drugs comes in with acute pain and swelling in his right hand right forearm and a little bit going into his right upper arm. Patient says this has been going on for the last several days but worsening now. We are being consulted as patient is high risk for right forearm infection as well as compartment syndrome but this degree of swelling. Orthopedic surgery has seen this patient and would like the patient to be transferred to [facility] for further evaluation and care there. Vascular has ordered arterial ultrasounds as the patient in the past had punched a glass window in a car and developed a severe laceration to his brachial area which he said involve the radial artery and needed to have repair for this. This was many years ago. At this point it is difficult for him to move the hand and the arm and he says that he has diminished sensation there but he also has diminished sensation on the left side. He is having a lot of pain and has been treated with some pain meds he says without much improvement. [facility] Past Medical History Medical History Bacteremia Depression Polysubstance abuse IVDU (intravenous drug user) Alcohol dependence Recurrent major depression-severe PTSD (post-traumatic stress disorder) PTSD (post-traumatic stress disorder) Hep C w/o coma, chronic Surgical History Surgical History History of surgery on arm Social History Social History Household Members: None Household Members Other:: unable to obtain information from patient d/t sedation. Housing: Homeless Do you presently have visiting nurse or other home services: No Alcohol intake: current Alcohol intake frequency: a few times a week Alcohol type: beer and hard liquor Comment: pt refused bed alarm Patient Tobacco Use Status: Current everyday Tobacco user Tobacco use type: Smokeless Tobacco Cigarette Packs Per Day: 2 Cigarettes Per Day: 40.0 Years Smoked: unknown Smoked in Last 30 Days: Yes e-Cigarette/Vaping Use: Currently Using Second Hand Smoke Exposure: No Use of substances other than those prescribed or required for medical reasons: Yes Substance Use Type: Heroin Advance Directives: No Advance Directives Information Provided: Yes service: No Sexual orientation: Straight/Heterosexual Meds Allergies Allergy/AdvReac Type Severity Reaction Status Date / Time fish derived (FISH) Allergy Unknown UNKNOWN - Verified 07/05/25 18:16 NOT ANAPHYLAXIS PER PATIENT trazodone AdvReac Severe priapr Verified 07/05/25 18:16 tomato AdvReac Stomach Verified 07/05/25 18:16 Upset Home Medications ?Medication ?Instructions ?Recorded ?Confirmed ?Last Taken ?Type gabapentin 800 mg tablet 800 mg PO TID 06/24/24 07/26/24 07/19/24 History clonidine HCl 0.1 mg tablet 0.1 mg PO BEDTIME 07/26/24 07/26/24 07/19/24 History hydroxyzine HCl 50 mg tablet 50 mg PO BEDTIME 07/26/24 07/26/24 07/19/24 History Physical Exam Vital Signs: Vital Signs: Last Vital Signs Temp 98.6 F 06/30/25 10:35 Pulse 80 06/30/25 12:10 Resp 18 06/30/25 12:10 BP 115/64 06/30/25 12:10 Pulse Ox 96 06/30/25 12:10 O2 Del Method Room Air 06/30/25 12:10 BMI result Body Mass Index 25.8 Const: General: cooperative and acute distress severe Extrem: Other: Left hand and left forearm are relatively within normal limits. Patient has decreased sensation to the left hand fingertips The right and is very swollen with the thenar eminence being more swollen than the rest of the hand both the dorsal and ventral surface. Patient has decreased sensation to touch on the fingertips.Patient's right forearm is Severely swollenThere is a little laxity to the skin and soft tissue. The brachial area going to the right upper arm has less edema and swelling there is scarring from previous injury of the brachial aspect of the forearm. On examination there is no area draining purulent material but there is a certain amount of blanching white areas on the ventral forearm with some areas that erythema and mottling Passive and active motion of the hand and forearm is extremely painful. Palpable radial artery and ulnar artery pulses are difficult to discern Results Labs 06/30/25 08:32 06/30/25 08:32 Labs: Abnormal lab results 06/30/25 06/30/25 Range/Units 08:15 08:32 WBC 23.5 H (4.8-10.8) X10*3/uL RBC 3.91 L (4.60-5.80) X10*6/uL Hgb 8.1 L (14.0-18.0) g/dl Hct 24.4 L D (42.0-52.0) % MCV 62.4 L (80.0-98.0) fL MCH 20.7 L (27.0-33.0) pg Immature Gran % (Auto) 1.4 H (0.0-0.4) % Neut % (Auto) 73.5 H (45-73) % Lymph % (Auto) 13.6 L (20-40) % Stafford # (Auto) 2.5 H (0.1-1.2) X10*3/uL Abs Immat Gran (auto) 0.34 H (0.00-0.03) X10*3/uL Absolute Neuts (auto) 17.2 H (2.0-8.3) x10*3/uL ESR 71 H (0-15) MM/HR Sodium 127 L (135-145) mmol/L Chloride 94 L (96-108) mmol/L Calcium 8.0 L D (8.4-10.2) mg/dL C-Reactive Protein 14.01 H (< or = 0.50) mg/dL Urine Opiates Screen POSITIVE H (Not Detect) Ur Buprenorphine Scrn Positive H (Not Detect) ng/mL Urine Fentanyl Screen POSITIVE H (Not Detect) U Benzodiazepines Scrn POSITIVE H (Not Detect) Urine Cocaine Screen POSITIVE H (Not Detect) U Marijuana (THC) Screen POSITIVE H (Not Detect) Short CBC 06/30/25 Range/Units 08:32 WBC 23.5 H (4.8-10.8) X10*3/uL Hgb 8.1 L (14.0-18.0) g/dl Hct 24.4 L D (42.0-52.0) % Plt Count 385 D (160-400) X10*3/uL BMP 06/30/25 08:32 Sodium 127 L Potassium 3.4 Chloride 94 L Carbon Dioxide 24 BUN 11 Creatinine 0.66 Calcium 8.0 L D All other labs normal. Imaging Additional studies: [facility] ? Diagnostics DATE TYPE STATUS REF RANGE/AUTHOR Hx 07/05/25 19:14 ÓscarJose 06/30/25 11:35 Dayne Cain 06/30/25 09:50 TimothyJavier 06/30/25 08:40 TimothyJavier 07/26/24 10:00 Waldemar Felix 07/08/24 11:43 Susi GrafHaley 07/01/24 10:36 Emely Hernandeza 06/29/24 12:59 EdisonNoreen 06/29/24 09:37 Carmenza Cueto 06/24/24 19:07 Glucksman,Ilya 06/24/24 19:07 Glucksman,Ilya 06/24/24 19:07 Glucksman,Ilya 06/24/24 16:47 Aayush Pineda 06/09/24 04:40 Lamont Upton 06/09/24 04:25 01/20/24 21:21 Fadyvan,Rony 09/21/23 01:36 Jerry Lund 09/20/23 21:14 Glucksman,Ilya 09/20/23 21:14 Glucksman,Ilya 09/20/23 20:25 GlucksmanIlya 08/17/23 12:28 Gluckstwin,Ilya 07/29/23 10:27 Judy,Rd 07/29/23 10:27 GumaroueDavian estevez 07/29/23 08:50 Davian Becker 04/20/22 11:00 Judy,Rd 04/04/22 10:28 Aftab Simon 01/04/22 15:39 Chang Velez 12/20/21 12:25 Judy,Rd Mark Mays Acute 45, M0 1980 MRN#? [id number] DEP ER,?Emergency Dept [address]??? 5ft 10in 180lb BSA: 2.01m? BMI: 25.8kg/m? Skin/Abscess/Foreign Body UNKNOWN - NOT ANAPHYLAXIS PER PATIENT priapr Stomach Upset ? ONSET 06/30/25 12:18 Total Unconfirmed No Data to Display Diagnostics Reports Mark Mays??45??M??1980 ? Allergy/Adv: fish derived, trazodone, tomato [address] [address] Ultrasound Report Signed Patient: Mark Mays MR#: [id number] : 1980 Acct:[id number] Age/Sex: 45 / M ADM Date: 06/30/25 Loc: HO.ED Attending Dr: Ordering Physician: Leilani Jarvis Date of Service: 06/30/25 Procedure(s): US arterial duplex UE RT Accession Number(s): [id number] cc: Leilani Jarvis; Physician,Unknown ~ EXAMINATION: US DOPPLER RIGHT UPPER EXTREMITY LIMITED CLINICAL INFORMATION: Swelling/edema, right upper extremity. COMPARISON: None available. TECHNIQUE: Ultrasound along with color Doppler imaging and spectral analysis was performed of the right upper extremity. FINDINGS: Right subclavian artery: Normal patency. Peak systolic velocities range 121-158 cm/s. Monophasic waveform. Right axillary artery: Normal patency. Peak systolic velocity: 153 cm/s. Monophasic waveform. Right brachial artery: Normal patency.Peak systolic velocity: Range 163-208 cm/s Right radial artery: Normal patency.Peak systolic velocity: 147 cm/s. Monophasic waveform. Right ulnar artery: Normal patency.Peak systolic velocity: 95 cm/s. Monophasic waveform. US/US arterial duplex UE RT IMPRESSION: Normal patency throughout the interrogated arteries with the monophasic waveforms. 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 Elevated white count arterial ultrasound does not show any arterial compromise however clinically the patient has very concerning signs and symptoms. Patient would benefit from being transferred to a tertiary center where they can be evaluated by fourth toe vascular and undergo debridement of soft tissue infection as well as fasciotomies as needed. This was discussed with the emergency room team Plan 45 year old male with active if drug abuse usage now with infected swollen right forearm and hand in the setting of early compartment syndrome - Procedures Date of Service Date of Service: 07/10/25
[2025-06-30 12:18] VITALS: BP 115/64; PULSE 80; RESP 18; TEMP 36.6; O2SAT 96
== END 2025-06-30 12:22 | disposition short-term general hospital (02) ==
PROVIDERS: Physician Assistant; Emergency Provider Emergency Medicine
DX: L03.113 Cellulitis of right upper limb (principal); R60.0 Localized edema; F11.10 Opioid abuse, uncomplicated; Z79.899 Other long term (current) drug therapy; F17.210 Nicotine dependence, cigarettes, uncomplicated; M25.531 Pain in right wrist; T79.A11A Traumatic compartment syndrome of right upper extremity, initial encounter; X58.XXXA Exposure to other specified factors, initial encounter; Y93.9 Activity, unspecified; Y92.9 Unspecified place or not applicable; Y99.8 Other external cause status; R11.0 Nausea; Z51.81 Encounter for therapeutic drug level monitoring
CPT/HCPCS: 36415; 73110; 73130; 80048; 80307; 83605; 85025; 85652; 86140; 87040; 93931; 96361; 96374; 96375; 99285; 99291; J0736; J2270; J2543; J3373

== ENCOUNTER → 2025-06-30 08:18 | Outpatient (BNV) | payer MEDICAID, SELFPAY | PROVIDERS: Emergency Provider Emergency Medicine; Visit Provider Surgery | DX: T79.A19A Traumatic compartment syndrome of unspecified upper extremity, initial encounter (principal); T79.A11A Traumatic compartment syndrome of right upper extremity, initial encounter | CPT/HCPCS: 99284 ==

== ENCOUNTER → 2025-06-30 09:42 | Outpatient (BNV) | payer MEDICAID, SELFPAY | PROVIDERS: Emergency Provider Emergency Medicine; Visit Provider Radiology Diagnostic Radiology | DX: M25.531 Pain in right wrist (principal); M79.641 Pain in right hand; R22.31 Localized swelling, mass and lump, right upper limb | CPT/HCPCS: 73110; 73130; 93931 ==

== ENCOUNTER 2025-07-05 18:04 | Emergency (ER) | payer MEDICAID, SELFPAY ==
--- NOTE | ~2025-07-05 | XR_ITS ---
CLINICAL HISTORY: infection osteo 3 view right hand Comparison: X-rays of the right hand from 06/30/2025 Findings: No significant change in old/chronic deformities of 4th and 5th metacarpals. Mild osteoarthritis is multifocal. No acute displaced fracture. No dislocation. No aggressive erosions or bony destructive changes or reported osteomyelitis by radiographs. Soft tissue swelling and prominence remain nonspecific. IMPRESSION: 1. Mild osteoarthritis without radiographic findings of osteomyelitis. 2. Chronic deformities including of the 5th metacarpal This document has been electronically signed by: Jose Cantrell MD on 07/05/2025 19:14:26
[2025-07-05 18:09] VITALS: BP 128/80; PULSE 88; O2SAT 99
[2025-07-05 18:16] VITALS: RESP 18; BMI 27.0
[2025-07-05 18:22] VITALS: BP 112/72; PULSE 82; RESP 18; TEMP 36.6; O2SAT 98
[2025-07-05 18:36] LABS: MANUAL DIFF FLAG NO
[2025-07-05 18:51] LABS: Hematocrit 29.9 % (42.0-52.0); Hemoglobin 9.4 g/dl (14.0-18.0); Imm Gran Abs Auto 0.28 X10*3/uL (0.00-0.03); Imm Gran Pct Auto 1.7 % (0.0-0.4); Lymphocytes Absolute Auto 2.7 X10*3/uL (1.2-4.9); Mean Corpuscular HGB Conc 31.4 g/dl (31.0-36.0); Mean Corpuscular Hemoglobin 20.1 pg (27.0-33.0); NRBC Abs Auto 0.000 X10*3/uL (0.0-0.012); NRBC Pct Auto 0.0 /100WBC (0.0-0.2); Platelet Count 579 X10*3/uL (160-400); Red Blood Count 4.67 X10*6/uL (4.60-5.80); White Blood Count 16.9 X10*3/uL (4.8-10.8)
[2025-07-05 18:51] LABS: Alanine Aminotransferase 43 U/L (0-40); Albumin Level 3.5 g/dL (3.5-5.0); Alkaline Phosphatase 78 U/L (39-117); Anion Gap 13 (12-20); Aspartate Amino Transferase 64 U/L (5-37); Blood Urea Nitrogen 6 mg/dL (9-16); Calcium 8.7 mg/dL (8.4-10.2); Carbon Dioxide 23 mmol/L (22-29); Chloride 104 mmol/L (96-108); Creatinine Clr Calc Pharmacy 160.4; Estimated Glomerular Filt Rate > 60; Magnesium 2.6 mg/dL (1.6-2.6); Potassium 3.8 mmol/L (3.3-5.1); Sodium 136 mmol/L (135-145); Total Protein 8.2 g/dL (6.5-8.0)
[2025-07-05 18:52] LABS: Mean Corpuscular Volume 64.0 fL (80.0-98.0)
[2025-07-05 19:00] LABS: Cannabinoid Screen Urine Not Detected (Not Detect)
--- NOTE | 2025-07-05 19:01 | ED.GENADULT ---
HPI - General Adult General Chief complaint: General Medical Stated complaint: R arm swelling, possibly from ivdu w/ dirty needle Time Seen by Provider: 07/05/25 18:10 Source: patient Limitations: no limitations History of Present Illness ED Provider: Clemencia Murguia PA-C HPI narrative: 45-year-old male with a history of polysubstance abuse, IV drug abuse, PTSD, depression who presents with right hand and wrist infection. Patient states he was just discharged from inpatient hospitalization at [facility] for right hand and wrist infection. Patient complains of ongoing pain. Denies fever. Denies inability to flex and extend from the right wrist. Related Data Home Medications ?Medication ?Instructions ?Recorded ?Confirmed gabapentin 800 mg tablet 800 mg PO TID 06/24/24 07/26/24 clonidine HCl 0.1 mg tablet 0.1 mg PO BEDTIME 07/26/24 07/26/24 hydroxyzine HCl 50 mg tablet 50 mg PO BEDTIME 07/26/24 07/26/24 Previous Rx's ?Medication ?Instructions ?Recorded methadone 10 mg/mL oral 80 mg (8 mL) PO DAILY #1,000 mL 07/04/24 concentrate (Methadose) Allergies Allergy/AdvReac Type Severity Reaction Status Date / Time fish derived (FISH) Allergy Unknown UNKNOWN - Verified 07/05/25 18:16 NOT ANAPHYLAXIS PER PATIENT trazodone AdvReac Severe priapr Verified 07/05/25 18:16 tomato AdvReac Stomach Verified 07/05/25 18:16 Upset Review of Systems Review of Systems: Yes all other systems are reviewed and are negative Constitutional: Constitutional: Denies fatigue and Denies fever(s) Musculoskeletal: Musculoskeletal: Reports arthralgias and Reports joint swelling Integumentary/Breasts: Skin/Breast: Reports erythema, Reports sores and Reports wounds Endocrine: Endocrine: Denies fatigue PMFSH Past Medical History Attestation statement: The following information was validated with the patient. Medical History Bacteremia Depression Polysubstance abuse IVDU (intravenous drug user) Alcohol dependence Recurrent major depression-severe PTSD (post-traumatic stress disorder) PTSD (post-traumatic stress disorder) Hep C w/o coma, chronic Surgical History History of surgery on arm Social History Social History Household Members: None Household Members Other:: unable to obtain information from patient d/t sedation. Housing: Homeless Do you presently have visiting nurse or other home services: No Alcohol intake: current Alcohol intake frequency: a few times a week Alcohol type: beer and hard liquor Comment: pt refused bed alarm Patient Tobacco Use Status: Current everyday Tobacco user Tobacco use type: Smokeless Tobacco Cigarette Packs Per Day: 2 Cigarettes Per Day: 40.0 Years Smoked: unknown Smoked in Last 30 Days: Yes e-Cigarette/Vaping Use: Currently Using Second Hand Smoke Exposure: No Use of substances other than those prescribed or required for medical reasons: Yes Substance Use Type: Heroin Advance Directives: No Advance Directives Information Provided: Yes service: No Sexual orientation: Straight/Heterosexual Physical Exam ED Vital Signs: Vital Signs - 24 hr 07/05/25 18:16 07/05/25 18:22 Temperature 97.8 F Pulse Rate 82 Respiratory Rate 18 18 Blood Pressure 112/72 Pulse Oximetry 98 Oxygen Delivery Method Room Air BMI result Body Mass Index 27.0 Const Other: Alert, appears older than stated age, disheveled, smells of urine Orientation/consciousness: patient oriented x3 Resp Effort & Inspection: normal respiratory effort Cardio Other: Normal peripheral perfusion Skin Other: Warm dry no rash Neuro General: patient oriented x3, gait normal, no focal motor deficits and CN's II-XI intact bilaterally Extrem Other: Patient able to flex and extend from the right wrist, there was swelling and overlying erythema that spans from mid forearm across the dorsum of the hand, there are healed sores, some with scab formation, some of the skin has sloughed, no active purulence from any of the wounds Psych Other: Cooperative Course Reevaluation(s) Reevaluation #1: At 7:01 p.m. on July 06, a sepsis focused exam was performed,.lactic 2.2......... The patient will not receive the benefit of IV fluids, antibiotic therapy, he is choosing to leave AMA Time: 19:01 Medications Administered Discontinued Medications Generic Name Dose Route Start Last Admin Trade Name Freq PRN Reason Stop Dose Admin Ketorolac Tromethamine 15 mg 07/05/25 18:33 07/05/25 18:40 Ketorolac Tromethamine 15 Mg/Ml Vial IVPUSH 07/05/25 18:34 15 mg ONCE ONE Administration Morphine Sulfate 4 mg 07/05/25 18:33 07/05/25 18:39 Morphine Sulfate 4 Mg/Ml Cartridge IVPUSH 07/05/25 18:34 4 mg ONCE ONE Administration Protocol Procedures Procedure Narrative Procedure Narrative: Ultrasound-guided IV. 20 gauge 1-3/4 inch IV placed in left upper extremity. Adequate blood return, flushes well secured with Tegaderm Medical Decision Making Medical Decision Making MDM Narrative: 45-year-old male with a history of polysubstance abuse, IV drug abuse, PTSD, depression who presents with right hand and wrist infection. Patient states he was just discharged from inpatient hospitalization at [facility] for right hand and wrist infection. Patient complains of ongoing pain. Denies fever. Denies inability to flex and extend from the right wrist. Problem: Polysubstance abuse, psychiatric illness History: Per patient I have considered the following differential diagnoses: Cellulitis, purulent cellulitis, abscess, osteomyelitis, septic joint Plan: I am concerned for osteomyelitis versus potential abscess formation. We will begin with screening x-rays. We will be obtaining blood cultures and a lactic in addition to screening labs, I do foresee him requiring IV antibiotics. I will treat his pain, ordering morphine and Toradol. I have independently reviewed the following tests: Labs: Leukocytosis of 16.9, stable anemia, thrombocytosis noted that is chronic, lactic 2.2, C-reactive protein 0.98, slight elevation in LFTs, ESR 73 X-ray hand and wrist: Lab Data 07/05/25 18:29 07/05/25 18:30 Labs: Lab Results 07/05/25 07/05/25 07/05/25 Range/Units 18:29 18:30 18:45 WBC 16.9 H (4.8-10.8) X10*3/uL RBC 4.67 (4.60-5.80) X10*6/uL Hgb 9.4 L (14.0-18.0) g/dl Hct 29.9 L D (42.0-52.0) % MCV 64.0 L (80.0-98.0) fL MCH 20.1 L (27.0-33.0) pg MCHC 31.4 (31.0-36.0) g/dl RDW 17.2 H (11.0-16.0) % Plt Count 579 H D (160-400) X10*3/uL MPV 9.2 L (9.4-12.4) fL Immature Gran % (Auto) 1.7 H (0.0-0.4) % Neut % (Auto) 71.6 (45-73) % Lymph % (Auto) 16.2 L (20-40) % Colbert % (Auto) 6.2 (2-11) % Eos % (Auto) 4.1 H (0-4) % Baso % (Auto) 0.2 (0-2) % Lymph # (Auto) 2.7 (1.2-4.9) X10*3/uL Colbert # (Auto) 1.1 (0.1-1.2) X10*3/uL Eos # (Auto) 0.7 H (0.0-0.4) X10*3/uL Baso # (Auto) 0.0 (0.0-0.2) X10*3/uL Abs Immat Gran (auto) 0.28 H (0.00-0.03) X10*3/uL Absolute Neuts (auto) 12.1 H (2.0-8.3) x10*3/uL Absolute Nucleated RBC 0.000 (0.0-0.012) X10*3/uL Nucleated RBC % (auto) 0.0 (0.0-0.2) /100WBC ESR 73 H (0-15) MM/HR Sodium 136 (135-145) mmol/L Potassium 3.8 (3.3-5.1) mmol/L Chloride 104 (96-108) mmol/L Carbon Dioxide 23 (22-29) mmol/L Anion Gap 13 (12-20) BUN 6 L (9-16) mg/dL Creatinine 0.65 (0.5-1.4) mg/dL Estim Creat Clear Calc 160.4 Estimated GFR > 60 Random Glucose 119 H (60-115) mg/dL Lactic Acid 2.2 H* (0.5-2.0) mmol/L Calcium 8.7 D (8.4-10.2) mg/dL Magnesium 2.6 (1.6-2.6) mg/dL Total Bilirubin 0.6 (0.0-1.0) mg/dL AST 64 H (5-37) U/L ALT 43 H (0-40) U/L Alkaline Phosphatase 78 (39-117) U/L C-Reactive Protein 0.98 H (< or = 0.50) mg/dL Total Protein 8.2 H (6.5-8.0) g/dL Albumin 3.5 (3.5-5.0) g/dL Urine Opiates Screen Not Detected (Not Detect) Ur Buprenorphine Scrn Not Detected (Not Detect) ng/mL Ur Oxycodone Screen Positive H (Not Detect) ng/mL Urine Methadone Screen Not Detected (Not Detect) ng/mL Urine Fentanyl Screen POSITIVE H (Not Detect) Ur Barbiturates Screen Not Detected (Not Detect) Ur Phencyclidine Scrn Not Detected (Not Detect) Ur Amphetamines Screen Not Detected (Not Detect) U Benzodiazepines Scrn Not Detected (Not Detect) Urine Cocaine Screen Not Detected (Not Detect) U Marijuana (THC) Screen Not Detected (Not Detect) Ethyl Alcohol 255 mg/dL Discharge Plan Discharge Clinical Impression: Cellulitis of hand, right, Active substance abuse Patient Disposition: Left Against Medical Advice Instructions: Dementia (ED), Polysubstance Use Disorder (ED) Prescriptions: No Action gabapentin 800 mg tablet 800 mg PO TID methadone [Methadose] 10 mg/mL Concentrate 80 mg PO DAILY Qty: 1000 0RF Rx Instructions: Partial Fill upon patient request. clonidine HCl 0.1 mg tablet 0.1 mg PO BEDTIME hydroxyzine HCl 50 mg tablet 50 mg PO BEDTIME Stand Alone Forms: Against Medical Advice Interventions: ED Discharge Assessment Last Done: 07/05/25 19:05 Discharge Date/Time: 07/05/25 19:18 Print Language: Honduran
--- NOTE | 2025-07-05 19:03 | PC.NURSE ---
patient stating he is leaving now, his uncle is outside to pick him up. PA aware at bedside reviewed risks of him leaking. patient stating he understands and he still wants to leave and will take oral abt
[2025-07-05 19:05] VITALS: BP 112/72; PULSE 82; RESP 18; TEMP 36.6; O2SAT 98
[2025-07-05 20:36] LABS: Reflex Lactate? Lactic Acid Added
== END 2025-07-05 19:18 | disposition left against medical advice (07) ==
LOC: HO.ED 19:04
PROVIDERS: Physician Assistant Medical; Emergency Provider Emergency Medicine
DX: L03.113 Cellulitis of right upper limb (principal); F19.10 Other psychoactive substance abuse, uncomplicated; F43.10 Post-traumatic stress disorder, unspecified; Z53.29 Procedure and treatment not carried out because of patient's decision for other reasons
CPT/HCPCS: 36415; 73130; 80053; 80307; 83605; 83735; 85025; 85652; 86140; 87040; 96374; 96375; 99284; J1885; J2270

== ENCOUNTER → 2025-07-05 18:17 | Outpatient (BNV) | payer MEDICAID, SELFPAY | PROVIDERS: Emergency Provider Emergency Medicine; Visit Provider Radiology Neuroradiology | DX: R22.31 Localized swelling, mass and lump, right upper limb (principal) | CPT/HCPCS: 73130 ==

== ENCOUNTER 2025-08-03 15:06 | Emergency (ER) | payer MEDICAID, SELFPAY ==
[2025-08-03 15:15] VITALS: BP 118/60; PULSE 90; O2SAT 96; BMI 25.8
--- NOTE | 2025-08-03 15:50 | ED_ITS ---
HPI - Psych General Stated Complaint: ETOH Time Seen by Provider: 08/03/25 15:07 Source: patient, EMS and old records reviewed Mode of arrival: EMS Limitations: no limitations History of Present Illness ED Provider: RADHA PAZ Narrative: 45 yo male with PMH of PTSD depression IVDA prior R hand wounds causing compartment syndrome he is here from housing in [place] after wanting to go to a program in [place] called [place]. He denies new injury no SI. He states he has been using IVDA and ETOH. MD complaint: substance abuse and alcohol abuse Onset (ago): week(s) Duration: intermittent History of same: Yes Relieving factors: none Exacerbating factors: alcohol and drug use Context: recent alcohol abuse and recent drug abuse Associated psychiatric symptoms: none Associated symptoms: denies other symptoms Treatments prior to arrival: none Related Data Home Medications ?Medication ?Instructions ?Recorded ?Confirmed gabapentin 800 mg tablet 800 mg PO TID 06/24/2407/26 clonidine HCl 0.1 mg tablet 0.1 mg PO BEDTIME 07/26/24 07/26/24 hydroxyzine HCl 50 mg tablet 50 mg PO BEDTIME 07/26/24 07/26/24 Previous Rx's ?Medication ?Instructions ?Recorded methadone 10 mg/mL oral 80 mg (8 mL) PO DAILY #1,000 mL 07/04/24 concentrate (Methadose) Allergies Allergy/AdvReac Type Severity Reaction Status Date / Time fish derived (FISH) Allergy Unknown UNKNOWN - Verified 08/03/25 15:54 NOT ANAPHYLAXIS PER PATIENT trazodone AdvReac Severe priapr Verified 08/03/25 15:54 tomato AdvReac Stomach Verified 08/03/25 15:54 Upset Review of Systems Review of Systems: Constitutional : No Fever, No Chills, No Fatigue ENT/Mouth : No sore throat, No Rhinorrhea Eyes: No Eye Pain, No Swelling, No Redness Cardiovascular : No Chest Pain, No SOB, No Dyspnea on Exertion Respiratory : No Cough, No Sputum Gastrointestinal : No Nausea, No Vomiting, No Diarrhea, No abdominal Pain Genitourinary : No Dysuria, No Urinary Frequency, No Hematuria, Musculoskeletal : No joint pain, No Myalgias, No Joint Swelling Skin : No Skin Lesions, pos rash Neuro : No Weakness, No Numbness, No Dizziness, no Headache Psych : No Anxiety/Panic, No Depression All other systems reviewed and are negative [facility] Past Medical History Attestation statement: The following information was validated with the patient. Source: old records reviewed Medical History Bacteremia Depression Polysubstance abuse IVDU (intravenous drug user) Alcohol dependence Recurrent major depression-severe PTSD (post-traumatic stress disorder) PTSD (post-traumatic stress disorder) Hep C w/o coma, chronic Surgical History History of surgery on arm Social History Social History Household Members: None Household Members Other:: unable to obtain information from patient d/t sedation. Housing: Homeless Do you presently have visiting nurse or other home services: No Alcohol intake: current Alcohol intake frequency: a few times a week Alcohol type: beer and hard liquor Comment: pt refused bed alarm Patient Tobacco Use Status: Current everyday Tobacco user Tobacco use type: Smokeless Tobacco Cigarette Packs Per Day: 2 Cigarettes Per Day: 40.0 Years Smoked: unknown e-Cigarette/Vaping Use: Currently Using Second Hand Smoke Exposure: No Substance Use Type: Heroin service: No Sexual orientation: Straight/Heterosexual Physical Exam Vital Signs: Appearance: Alert. Oriented X3. No acute distress. Eyes: Pupils equal, round and reactive to light. ENT: Pharynx normal. Neck: Normal inspection. Neck supple. CVS: Normal heart rate and rhythm. Pulses normal. Respiratory: No respiratory distress. Breath sounds normal. Abdomen: Soft and nontender. Skin: Skin warm and dry. Normal skin color. Normal skin turgor. Extremities: No lower extremity edema. old R arm wounds and xylazine wounds but no signs of cellulitis Neuro: Oriented X 3. No motor deficit. No sensory deficit. Medical Decision Making Medical Decision Making MDM Narrative: 45 yo male with PMH Of PTSD depression IVDA prior R hand wounds here requesting med clearance for detox, he denies SI/HI. He denies any new medical complaints. He will need EKG, urine, labs, PRN ativan and will involve recovery team Differential Diagnosis Differential Diagnoses: The differential diagnosis associated with the presentation includes substance abuse disorder Admission/Observation Consideration of admission/observation: Escalation of care including admission/observation considered would have kept him on observation until clearance and transfer to outpatient program but he eloped out of the department Independent Historian Clinical information obtained from an independent historian. History obtained from or confirmed by: EMS External Record Review External record reviewed: Inpatient record and Outpatient record Discharge Plan Discharge Clinical Impression: Opioid use disorder, Cocaine use disorder Patient Disposition: Elopement Prescriptions: No Action gabapentin 800 mg tablet 800 mg PO TID methadone [Methadose] 10 mg/mL Concentrate 80 mg PO DAILY Qty: 1000 0RF Rx Instructions: Partial Fill upon patient request. clonidine HCl 0.1 mg tablet 0.1 mg PO BEDTIME hydroxyzine HCl 50 mg tablet 50 mg PO BEDTIME Print Language: Greenlandic
--- NOTE | 2025-08-03 15:55 | PC.NURSE ---
Pt arrives via EMS today for reported ETOH use. Per EMS, Pt in need of placement at [facility]. The program is working on finding Pt a bed at this time but felt Pt needed to be evaluated in ED at this time. EMS reports Pt is calm and cooperative at this time and is without SI/HI. Pt placed in 22H on arrival. This RN unable to locate Pt in 22H when attempting to triage. It was reported that while this RN was tending to an urgent matter in another Pts room, Pt walked out of ED via ambulance bay. retail marketing executive Lilia aware and discussed with security. This RN searched bathrooms, waiting room and immediate area outside hospital entrance for Pt with no success.
--- OUTSIDE RECORDS SUMMARY | 2025-08-03 17:24 | XMS_ITS ---
Author Organization [employer] Address [address] [place] [id number] Care Team Providers Care Regional Airline Pilot Name Role Phone Yenny Alejo Primary Care Provider Jamilah Hilario RN Unavailable Unavailable Leonor Mace MA Unavailable Unavaila Jane Capps CHW Unavailable Unavail able CHW Complex Status:Outreach In Progress (Enrolling) Start date:07/03/2025 Enrollment reason:ADT Feed Case Team Name Relationship Phone Jane Patel CHW(Responsible Staff) Continued Care and Services Coordination
--- OUTSIDE RECORDS SUMMARY | 2025-08-03 17:24 | XMS_ITS | Encounter Summary ---
Author Organization [employer] Address [address] [facility] [address] [place] [address] Care Team Providers Care Cooling Tower Technician Name Role Phone Yenny Alejo Primary Care Provider Jamilah Hilario RN Unavailable Unavailable Leonor Mace MA Unavailable Unavaila tessa KittenTrevor mandujanomigillian CHW Unavailable Unavail able Encounter Details Date Type Department Care Team ([facility] Contact Info) Description 05/05/2025 Telephone [facility] Medical [address] [place] [address] Yenny Alejo AGNP [address] [place] [address] Social History Tobacco Use Types Packs/Day Years Used Date Smoking Tobacco: Former Cigarettes Passive Smoke Exposure: Never Smokeless Tobacco: Never Alcohol Use Standard Drinks/Week Comments Not Currently [...] Orientation Straight 04/15/2024 12 :57 PM EDT documented as of this encounter Plan of Treatment Not on file documented as of this encounter Visit Diagnoses Not on filedocumented in this encounter Additional Health Concerns Assessment Noted Time PHQ-9 Depression Total Score: 18 025 10:33 AM EST documented as of this encounter Care Teams Cooling Tower Technician Relationship Specialty Start Date End Date Yenny Alejo AGNP PCP - General Internal Medicine 05/13/24 Jamilah Hilario, RN Registered Nurse Substance Use Disorder Treatment 01/03/25 Leonor Mace MA Substance Use Disorder Treatment 01/03/25 Jane Patel CHW 07/02/[address] [address] 06/23/[address] Supervisor Fishing 12/17/24 documented as of this encounter
--- OUTSIDE RECORDS SUMMARY | 2025-08-03 17:24 | XMS_ITS | Encounter Summary ---
Author Organization [employer] Address [address] [address] Care Team Providers Care Glove Finisher Name Role Phone Yenny Alejo Primary Care Provider Jamilah Hilario RN Unavailable Unavailable Leonor Mace MA Unavailable Unavaila ble Kittenplan, Brumilda CHW Unavailable Unavail able Reason for Visit * Reason Onset Date Comments Med Refill 03/23/2025 Encounter Details Date Type Department Care Team (Late st Contact Info) Description 03/23/2025 Refill [facility] Medical [address] [place] [address] Yenny Alejo AGNP [address] [place] [address] Opioid use disorder Social History Tobacco Use Types Packs/Day Years [...] PM EDT documented as of this encounter Miscellaneous Notes * Telephone Encounter - Palma Castle RN - 03/24/2025 12:25 PM EDT Suboxone Already sent 03/23/25 documented in this encounter Plan of Treatment Not on file documented as of this encounter Visit Diagnoses Diagnosis Opioid use disorder documented in this encounter Additional Health Concerns Assessment Noted Time PHQ-9 Depression Total Score: 18 025 10:33 AM EST documented as of this encounter Care Teams Glove Finisher Relationship Specialty Start Date End Date Yenny Alejo AGNP PCP - General Internal Medicine 05/13/24 Jamilah Hilario, KRISTOPHER Registered Nurse Substance Use Disorder Treatment 01/03/25 Leonor Mace MA Substance Use Disorder Treatment 01/03/25 Jane Patel CHW 07/02/[address] [address] 06/23/[address] Accident Examiner 12/17/24 documented as of this encounter
--- OUTSIDE RECORDS SUMMARY | 2025-08-03 17:24 | XMS_ITS | Encounter Summary ---
Author Organization [employer] Address [address] [facility] [address] [place] [address] Care Team Providers Care Speech Language Pathologist Name Role Phone Sapna Yennymiguel JENNINGS Primary Care Provider Jamilah Hilario RN Unavailable Unavailable Leonor Mace MA Unavailable Unavaila tessa Kittenplan Brumilda CHW Unavailable Unavail able Encounter Details Date Type Department Care Team ([facility] Contact Info) Description 08/01/2025 Telephone [facility] Head Tennis Professional [address] [place] [address] Jamilah Hilario, RN Social History Tobacco Use Types Packs/Day Years [...] encounter Miscellaneous Notes * Telephone Encounter - Jamilah Hilario RN - 08/01/2025 8:48 AM EDT Patient last [facility] appt 03/23/2025. Patient moved to [facility] in May 2025. Outreach calls with call back number numerous times. Patient to be discharged from [facility]. Jamilah Hilario RN [facility] documented in this encounter Plan of Treatment Not on file documented as of this encounter Visit Diagnoses Not on filedocumented in this encounter Additional Health Concerns Assessment Noted Time PHQ-9 Depression Total Score: 18 025 10:33 AM EST documented as of this encounter Care Teams Speech Language Pathologist Relationship Specialty Start Date End Date Yenny Alejo AGNP PCP - General Internal Medicine 05/13/24 Jamilha Hilario RN Registered Nurse Substance Use Disorder Treatment 01/03/25 Leonor Mace MA Substance Use Disorder Treatment 01/03/25 Jane Patel CHW 07/02/[address] [address] 06/23/[address] Tax Representative 12/17/24 documented as of this encounter
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
== END 2025-08-03 20:58 | disposition left against medical advice (07) ==
LOC: HO.ED 16:32
PROVIDERS: Emergency Provider Emergency Medicine
DX: F11.10 Opioid abuse, uncomplicated (principal); F14.10 Cocaine abuse, uncomplicated; F33.1 Major depressive disorder, recurrent, moderate; Z71.51 Drug abuse counseling and surveillance of drug abuser; Z79.899 Other long term (current) drug therapy
CPT/HCPCS: 99281; 99282

== ENCOUNTER 2025-08-11 07:14 | Inpatient (IN) | payer MEDICAID, SELFPAY ==
[2025-08-11] VITALS (11 sets, daily range): BP systolic 94–138; BP diastolic 51–75; PULSE 59–103; RESP 13–26; TEMP 36.4–39; O2SAT 90–99; BMI 29.8; BMI 27.6
--- NOTE | ~2025-08-11 | XR_ITS ---
EXAMINATION: XR CHEST 1 VIEW HISTORY: AMS, hx of ETOH R/O aspiration PNA COMPARISON: Comparison is made with the prior examination dated 06/24/2024. FINDINGS: Two AP portable views of the chest performed at 11:20 AM are submitted. The lungs are expanded and clear. There is no pleural effusion, pneumothorax, or pulmonary vascular congestion. The heart is normal in size. There is mild degenerative disc disease of the spine. XR/XR chest 1V IMPRESSION: No acute cardiopulmonary abnormality. Electronically signed by: Javier Aguirre MD 08/11/2025 11:32 AM EDT
--- NOTE | ~2025-08-11 | CT_ITS ---
EXAMINATION: CT HEAD WITHOUT CONTRAST CLINICAL INFORMATION: LEE, found down COMPARISON: June 24, 2024 TECHNIQUE: Contiguous axial imaging was performed from the skull base to vertex without intravenous administration of contrast. This CT examination was performed using dose optimization techniques as appropriate, variously including the following: *Automated exposure control *Adjustment of mA and/or kV according to patient size (this includes techniques or standardized protocols for targeted exams where dose is matched to indication/reason for exam; i.e. extremities or head) *Use of iterative reconstruction technique DLP: 714 mGy-cm FINDINGS: No acute intracranial hemorrhage, mass effect, midline shift, hydrocephalus or herniation. [place]-white matter differentiation is normal. Posterior cranial fossa contents demonstrated no gross hemorrhage or mass effect. Normal position of the cerebellar tonsils. Sellar/suprasellar region demonstrated no gross masses. Old traumatic deformities in the nasal bones and right zygomatic arc. No air-fluid levels in the paranasal sinuses. Small retention cyst, sphenoid sinus. Tympanic cavities and mastoid cells are aerated. 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 CT/CT head/brain wo IV con IMPRESSION: No acute intracranial hemorrhage or acute brain abnormality by CT. Electronically signed by: Dayne Abrams MD 08/11/2025 09:22 AM EDT
--- NOTE | ~2025-08-11 | CT_ITS ---
EXAMINATION: CT ABDOMEN AND PELVIS WITH CONTRAST CLINICAL INFORMATION: Abdominal pain, increased bilirubin, history of lumbar discitis, evaluate lumbar spine. COMPARISON: 06/24/2024, 09/20/2023. TECHNIQUE: Multidetector volumetric images were obtained from the superior aspect of the liver through the pubic symphysis following administration 85 mL of Omnipaque 350 intravenous contrast. Sagittal and coronal reformatted images were obtained on the technologist's workstation. Oral contrast: No This CT examination was performed using dose optimization techniques as appropriate, variously including the following: *Automated exposure control *Adjustment of mA and/or kV according to patient size (this includes techniques or standardized protocols for targeted exams where dose is matched to indication/reason for exam; i.e. extremities or head) *Use of iterative reconstruction technique FINDINGS: LUNG BASES: Mild dependent atelectatic changes are present. There were no effusions. Heart size is borderline enlarged. Small type I hiatus hernia suspected. LIVER, GALLBLADDER, AND BILIARY TREE: The liver is mildly enlarged, demonstrates early cirrhotic morphology. There is diffuse mild fatty infiltration. There is periportal edema present. There is no suspicious focal hepatic lesion. There is small volume perihepatic ascites present. The gallbladder is unremarkable with no evidence of radiopaque gallstones, gallbladder wall thickening, or obvious pericholecystic inflammatory changes. PANCREAS: Unremarkable. SPLEEN: There is splenomegaly. There is no splenic lesion. There is trace perisplenic ascites. ADRENAL GLANDS: Unremarkable. KIDNEYS AND URETERS: The kidneys are normal in size, shape, and attenuation. No hydronephrosis, hydroureter, or calculi seen. No perinephric stranding. BLADDER: Unremarkable. GASTROINTESTINAL TRACT: A small, and large bowel demonstrate no acute abnormalities. No bowel obstruction or inflammation. No CT evidence of acute appendicitis. ABDOMINAL WALL: No significant hernia is appreciated. LYMPH NODES: There is abnormal lymphadenopathy in both inguinal regions, with lymph nodes measuring up to 1.5 cm short axis. These are presumably reactive. Etiology is not clear on this exam. No intra-abdominal or pelvic abnormal lymphadenopathy present. VASCULAR: Mild atheromatous calcification of the iliac arteries. No aortic aneurysm. PELVIC VISCERA: The prostate and seminal vesicles are unremarkable. OSSEOUS STRUCTURES: L5 limbus vertebra. Mild irregular endplate changes present at L4-5 oriented to the right. There is disc vacuum phenomenon within the disc space. There are no gross erosive or permeative changes identified. There is no suspicious lytic or blastic bone lesion. Overall the appearance of the lumbar spine is not significantly changed from 06/24/2024. There are mild to moderate degenerative changes of both hip joints. CT/CT abdomen pelvis w IV con IMPRESSION: 1. Prominent lymphadenopathy in the bilateral inguinal regions, of uncertain etiology. This had a similar appearance on the prior CT exam. 2. Hepatosplenomegaly. Diffuse fatty infiltration of the liver with early cirrhotic morphology. Periportal edema is present, nonspecific. 3. Small volume ascites surrounding the liver and spleen. Etiology is not clear however may be on the basis of portal hypertension. 4. Stable appearance of the lumbar spine without new permeative or erosive change. Electronically signed by: Scot Santos MD 08/11/2025 12:19 PM EDT
--- NOTE | 2025-08-11 07:38 | ED.GENADULT ---
HPI - General Adult General Chief complaint: Altered Mental Status Stated complaint: COLD Time Seen by Provider: 08/11/25 07:22 Source: EMS, RN notes reviewed and old records reviewed Mode of arrival: EMS Limitations: altered mental status History of Present Illness ED Provider: COSTA Escudero HPI narrative: 45-year-old male with medical history of PTSD, depression, IVDU, prior R hand wounds causing compartment syndrome presents to ED by EMS due to being found down outside by PD. Patient is currently altered but will open eyes with verbal stimulation. He is unable to tell me what happend or what is ailing him. MD complaint: AMS Related Data Home Medications ?Medication ?Instructions ?Recorded ?Confirmed gabapentin 800 mg tablet 800 mg PO TID 06/24/24 07/26/24 clonidine HCl 0.1 mg tablet 0.1 mg PO BEDTIME 07/26/24 07/26/24 hydroxyzine HCl 50 mg tablet 50 mg PO BEDTIME 07/26/24 07/26/24 Previous Rx's ?Medication ?Instructions ?Recorded methadone 10 mg/mL oral 80 mg (8 mL) PO DAILY #1,000 mL 07/04/24 concentrate (Methadose) Allergies Allergy/AdvReac Type Severity Reaction Status Date / Time fish derived (FISH) Allergy Unknown UNKNOWN - Verified 08/11/25 07:25 NOT ANAPHYLAXIS PER PATIENT trazodone AdvReac Severe priapr Verified 08/11/25 07:25 tomato AdvReac Stomach Verified 08/11/25 07:25 Upset Review of Systems Review of Systems: Unable to perform ROS due to patient's altered mental status PMFSH Past Medical History Attestation statement: The following information was validated with the patient. Source: old records reviewed and nursing notes reviewed Medical History Bacteremia Depression Polysubstance abuse IVDU (intravenous drug user) Alcohol dependence Recurrent major depression-severe PTSD (post-traumatic stress disorder) PTSD (post-traumatic stress disorder) Hep C w/o coma, chronic Surgical History History of surgery on arm Social History Social History (Updated 08/11/25 @ 13:08 by ALEIDA Michel) Household Members: None Household Members Other:: unable to obtain information from patient d/t sedation. Housing: Homeless Do you presently have visiting nurse or other home services: Yes ([facility]) Alcohol intake: current Alcohol intake frequency: a few times a week Alcohol type: beer and hard liquor Patient Tobacco Use Status: Current everyday Tobacco user Tobacco use type: Smokeless Tobacco Cigarette Packs Per Day: 2 Cigarettes Per Day: 40.0 Years Smoked: unknown e-Cigarette/Vaping Use: Currently Using Second Hand Smoke Exposure: No Substance Use Type: Crack/Cocaine and Heroin service: No Sexual orientation: Straight/Heterosexual Physical Exam ED Vital Signs: Vital Signs - 24 hr 08/11/25 07:22 08/11/25 08:00 08/11/25 08:42 Temperature 102.2 F H 98.4 F Pulse Rate 103 H 59 101 H Respiratory Rate 20 16 26 H Blood Pressure 113/52 L 138/64 123/63 Pulse Oximetry 90 L 99 96 Oxygen Delivery Method Room Air Nasal Cannula Nasal Cannula Oxygen Flow Rate 2 2 BMI result Body Mass Index 29.8 GENERAL APPEARANCE: Altered mental status, somnolent but arousable to vocal stimuli, GCS of 12, patient looks unwell with multiple scab wounds all over his entire body including top of head HEENT: ?NC, multiple scabs over R external ear, clear conjunctiva, no miosis present, pupils with consensual light reflex, oropharynx clear NECK: ?Supple without lymphadenopathy HEART:? tachycardic rate and regular rhythm, normal S1/S2, no m/r/g LUNGS:? CTAB, moving air well. No crackles or wheezes are heard. ABDOMEN: Soft, non distended, without rigidity, diffuse tenderness as patient winces as I palpate the abdomen, negative Penn's sign, no rebound tenderness BACK: No CVAT, no obvious deformity. EXTREMITIES: Upper extremities with multiple scabs, right hand with abrasion, warmth, erythema, edema, radial pulses 2+ bilaterally. Bilateral lower extremities with multiple scabs, bilateral feet wet and macerated with open wound of the right heel NEUROLOGICAL: Skin: ?Warm and dry without any rash. Medications Administered Generic Name Dose Route Start Last Admin Trade Name Freq PRN Reason Stop Dose Admin Folic Acid 1 mg 08/12/25 09:00 08/12/25 08:34 Folic Acid 1 Mg Tablet PO 1 mg DAILY MELQUIADES Administration Heparin Sodium (Porcine) 5,000 unit 08/11/25 13:00 08/12/25 13:03 Heparin Sodium,Porcine 5,000 Unit/Ml Vial SUBCUT 5,000 unit Q12H MELQUIADES Administration Lactated Ringer's 1,000 mls @ 100 mls/hr 08/11/25 12:45 08/12/25 08:48 Lr IVCONT 100 mls/hr .Q10H MELQUIADES Administration Piperacillin Sod/Tazobactam 100 mls @ 200 mls/hr 08/11/25 14:00 08/12/25 13:30 Sod 4.5 gm/ Sodium Chloride IV Infused Q6H MELQUIADES Infusion Vancomycin HCl 1,250 mg/ 250 mls @ 166.667 mls/hr 08/11/25 20:00 08/12/25 10:21 Sodium Chloride IV Infused Q12H MELQUIADES Infusion Lactated Ringer's 1,000 mls @ 100 mls/hr 08/12/25 01:30 08/12/25 12:45 Lr IVCONT 100 mls/hr .Q10H MELQUIADES Administration Phenobarbital 45 mg 08/12/25 09:00 08/12/25 08:34 Phenobarbital 15 Mg Tablet PO 08/13/25 21:01 45 mg BID MELQUIADES Administration Protocol Sodium Chloride 3 ml 08/11/25 16:00 08/12/25 08:45 0.9 % Sodium Chloride Flush 3 Ml Syringe IVFLUSH 3 ml QSHIFT MELQUIADES Administration Thiamine HCl 100 mg 08/12/25 09:00 08/12/25 08:34 Thiamine Hcl 100 Mg Tablet PO 100 mg DAILY MELQUIADES Administration Discontinued Medications Generic Name Dose Route Start Last Admin Trade Name Palmira PRN Reason Stop Dose Admin Hydromorphone HCl 1 mg 08/12/25 13:10 08/12/25 13:17 Hydromorphone Hcl 1 Mg/Ml Syringe IVPUSH 08/12/25 13:11 1 mg ONCE ONE Administration Protocol Acetaminophen 1,000 mg in 100 mls @ 400 mls/hr 08/11/25 07:44 08/11/25 08:08 Ofirmev IV 08/11/25 07:58 Infused ONCE ONE Infusion Piperacillin Sod/Tazobactam 50 mls @ 100 mls/hr 08/11/25 07:58 08/11/25 08:57 Sod 3.375 gm/ Sodium Chloride IV 08/11/25 08:27 Infused ONCE ONE Infusion Vancomycin HCl 2,000 mg in 500 mls @ 250 mls/hr 08/11/25 07:58 08/11/25 10:50 Vancomycin/Ns IV 08/11/25 09:57 Infused ONCE ONE Infusion Lactated Ringer's 2,667.12 mls @ 2,667.12 mls/hr 08/11/25 08:03 08/11/25 09:09 Lr 30 ml/kg infuse over 1 hr (2667.12 ml) 08/11/25 09:02 Infused IV Infusion .Q1H ONE Magnesium Sulfate 2 gm in 50 mls @ 150 mls/hr 08/11/25 09:03 08/11/25 10:53 Magnesium Sulfate/H2o IV 08/11/25 09:22 Infused ONCE ONE Infusion Potassium Chloride 10 meq in 100 mls @ 100 mls/hr 08/11/25 09:15 08/11/25 13:15 Potassium Chloride/H20 IV 08/11/25 11:14 Infused Q1H MELQUIADES Infusion Lactated Ringer's 500 mls @ 999 mls/hr 08/12/25 01:30 08/12/25 02:13 Lr IV 08/12/25 02:00 Infused .Q31M MELQUIADES Infusion Iohexol 100 ml 08/11/25 11:51 08/11/25 11:52 Iohexol 350 Mg/Ml 100 Ml Infus..Btl IV 08/11/25 11:52 85 ml ONCE ONE Administration Phenobarbital Sodium 330 mg 08/11/25 14:00 08/11/25 13:32 Phenobarbital Sodium 130 Mg/Ml Im Once IM 08/11/25 14:01 330 mg ONCE ONE Administration Protocol Phenobarbital Sodium 250 mg 08/11/25 17:00 08/11/25 20:34 Phenobarbital Sodium 130 Mg/Ml Vial Im Q3hx2 IM 08/11/25 20:01 250 mg Q3H MELQUIADES Administration Protocol Medical Decision Making Medical Decision Making MDM Narrative: 45-year-old male with medical history of PTSD, depression, IVDU, prior R hand wounds causing compartment syndrome presents to ED by EMS due to being found down outside by PD. Patient was initially somnolent with a GCS of 12, but arousable by verbal stimuli, he became more alert while in the department, and is now stating he is experiencing some lower abdominal pain, and right-sided lumbar back pain. Patient also states he drinks approximately 1 L of vodka per day with last drink being the night prior, and uses 2 bundles of heroin with cocaine per day. Patient reports he has history of alcohol withdrawal and has been admitted in the past. Labs reveal leukopenia of 4.7, with a bandemia of 23, with a microcytic anemia with hemoglobin of 9.2, and hematocrit of 28.2, elevated lactic acid 3.4, hypokalemia at 3.1, hypomagnesemia of 1.5, with tachycardic rate of 103 EKG reveals normal sinus rhythm, with nonspecific ST abnormality, no significant ST-elevation/depression, when comparing this to a prior no significant change found At 7:58 I suspected infection and patient met Sepsis criteria, patient medicated with IV vancomycin and IV zosyn and fluid bolus ordered. Patient being repleted with 2g IV mag and 72tdrp1 IV potassium. CT head/brain negative for acute intracranial findings CXR negative for acute cardiopulmonary findings CT abdomen and pelvis reveals hepatosplenomegaly, with diffuse fatty infiltration of the liver with early cirrhotic morphology. Small volume ascites surrounding the liver and spleen, stable appearance of lumbar spine without new permeative or erosive changes. I reached out to Hospitalist COSTA Olmedo who will admit to medicine for sepsis and electrolyte derangement. Nursing was concerned for alcohol withdrawal due to patient being diaphoretic. I spoke with him at the bedside and he stated he felt he was going into alcohol withdrawal. Phenobarbital protocol of 12mg/kg was initiated. Patient being admitted to medicine service for further management. Differential Diagnosis Differential Diagnoses: The differential diagnosis associated with the presentation includes ICH Aspiration pneumonia Dysrhythmia Electrolyte imbalance Hypoglycemia Admission/Observation Consideration of admission/observation: Escalation of care including admission/observation considered Consult Healthcare Provider Management of the patient was discussed with: Hospitalist (COSTA Olmedo) Lab Data MDM Lab Attestation statement: I reviewed the patient's lab results. 08/12/25 07:12 08/12/25 07:12 Labs: Lab Results 08/11/25 08/11/25 08/11/25 Range/Units 07:48 07:49 07:52 WBC 4.7 L (4.8-10.8) X10*3/uL RBC 4.39 L (4.60-5.80) X10*6/uL Hgb 9.2 L (14.0-18.0) g/dl Hct 28.2 L (42.0-52.0) % MCV 64.2 L (80.0-98.0) fL MCH 21.0 L (27.0-33.0) pg MCHC 32.6 (31.0-36.0) g/dl RDW 16.9 H (11.0-16.0) % Plt Count 271 D (160-400) X10*3/uL MPV 9.9 (9.4-12.4) fL Immature Gran % (Auto) Cancelled Neut % (Auto) Cancelled Lymph % (Auto) Cancelled [place] % (Auto) Cancelled Eos % (Auto) Cancelled Baso % (Auto) Cancelled Lymph # (Auto) Cancelled [place] # (Auto) Cancelled Eos # (Auto) Cancelled Baso # (Auto) Cancelled Abs Immat Gran (auto) Cancelled Absolute Neuts (auto) Cancelled Absolute Nucleated RBC 0.020 H (0.0-0.012) X10*3/uL Nucleated RBC % (auto) 0.4 H (0.0-0.2) /100WBC Neutrophils % (Manual) 72 (45-73) % Band Neutrophils % 23 H (3-5) % Lymphocytes % (Manual) 3 L (20-40) % Monocytes % (Manual) 1 L (2-11) % Basophils % (Manual) 1 (0-2) % Abs Neuts (Manual) 4.5 (2.0-8.3) X10*3/uL Lymphocytes # (Manual) 0.1 L (1.2-4.9) X10*3/uL Toxic Vacuolation PRESENT Platelet Estimate NORMAL (NORMAL) Plt Morphology Comment NORMAL RBC Morphology NOTED Polychromasia 2+ (3-5) /OIF Basophilic Stippling 1+ (0-2) /OIF Microcytosis 1+ (5-14) /OIF Sodium 136 (135-145) mmol/L Potassium 3.1 L (3.3-5.1) mmol/L Chloride 102 (96-108) mmol/L Carbon Dioxide 22 (22-29) mmol/L Anion Gap 15 (12-20) BUN 12 (9-16) mg/dL Creatinine 0.90 (0.5-1.4) mg/dL Estim Creat Clear Calc 111.1 Estimated GFR > 60 POC Glucose (60-115) mg/dL Random Glucose 67 (60-115) mg/dL Lactic Acid 3.4 H* (0.5-2.0) mmol/L Lactic Acid F/U @ 2Hr (0.5-2.0) mmol/L Lactic Acid F/U @ 4Hr (0.5-2.0) mmol/L Calcium 8.5 (8.4-10.2) mg/dL Magnesium 1.5 L (1.6-2.6) mg/dL Total Bilirubin 2.4 H (0.0-1.0) mg/dL AST 161 H (5-37) U/L ALT 61 H (0-40) U/L Alkaline Phosphatase 282 H (39-117) U/L Total Creatine Kinase 637 H (38-174) U/L Troponin I High Sens 7.2 D (<3.5-35.0) ng/L Total Protein 7.2 (6.5-8.0) g/dL Albumin 3.6 (3.5-5.0) g/dL Urine Color Urine Appearance Urine pH (5.0-9.0) Ur Specific Kel[place] (1.005-1.025) Urine Protein (Neg-Trace) mg/dL Urine Glucose (UA) (Negative) mg/dL Urine Ketones (Negative) mg/dL Urine Blood (Negative) Urine Nitrite (Negative) Ur Leukocyte Esterase (Negative) Urine Opiates Screen (Not Detect) Ur Buprenorphine Scrn (Not Detect) ng/mL Ur Oxycodone Screen (Not Detect) ng/mL Urine Methadone Screen (Not Detect) ng/mL Urine Fentanyl Screen (Not Detect) Ur Barbiturates Screen (Not Detect) Ur Phencyclidine Scrn (Not Detect) Ur Amphetamines Screen (Not Detect) U Benzodiazepines Scrn (Not Detect) Urine Cocaine Screen (Not Detect) U Marijuana (THC) Screen (Not Detect) Ethyl Alcohol < 10 mg/dL 08/11/25 08/11/25 08/11/25 Range/Units 10:31 12:01 12:37 WBC (4.8-10.8) X10*3/uL RBC (4.60-5.80) X10*6/uL Hgb (14.0-18.0) g/dl Hct (42.0-52.0) % MCV (80.0-98.0) fL MCH (27.0-33.0) pg MCHC (31.0-36.0) g/dl RDW (11.0-16.0) % Plt Count (160-400) X10*3/uL MPV (9.4-12.4) fL Immature Gran % (Auto) Neut % (Auto) Lymph % (Auto) [place] % (Auto) Eos % (Auto) Baso % (Auto) Lymph # (Auto) [place] # (Auto) Eos # (Auto) Baso # (Auto) Abs Immat Gran (auto) Absolute Neuts (auto) Absolute Nucleated RBC (0.0-0.012) X10*3/uL Nucleated RBC % (auto) (0.0-0.2) /100WBC Neutrophils % (Manual) (45-73) % Band Neutrophils % (3-5) % Lymphocytes % (Manual) (20-40) % Monocytes % (Manual) (2-11) % Basophils % (Manual) (0-2) % Abs Neuts (Manual) (2.0-8.3) X10*3/uL Lymphocytes # (Manual) (1.2-4.9) X10*3/uL Toxic Vacuolation Platelet Estimate (NORMAL) Plt Morphology Comment RBC Morphology Polychromasia /OIF Basophilic Stippling /OIF Microcytosis /OIF Sodium (135-145) mmol/L Potassium (3.3-5.1) mmol/L Chloride (96-108) mmol/L Carbon Dioxide (22-29) mmol/L Anion Gap (12-20) BUN (9-16) mg/dL Creatinine (0.5-1.4) mg/dL Estim Creat Clear Calc Estimated GFR POC Glucose 148 H (60-115) mg/dL Random Glucose (60-115) mg/dL Lactic Acid (0.5-2.0) mmol/L Lactic Acid F/U @ 2Hr 2.1 H* (0.5-2.0) mmol/L Lactic Acid F/U @ 4Hr (0.5-2.0) mmol/L Calcium (8.4-10.2) mg/dL Magnesium (1.6-2.6) mg/dL Total Bilirubin (0.0-1.0) mg/dL AST (5-37) U/L ALT (0-40) U/L Alkaline Phosphatase (39-117) U/L Total Creatine Kinase (38-174) U/L Troponin I High Sens (<3.5-35.0) ng/L Total Protein (6.5-8.0) g/dL Albumin (3.5-5.0) g/dL Urine Color Yellow Urine Appearance Clear Urine pH 6.5 (5.0-9.0) Ur Specific [place] 1.015 (1.005-1.025) Urine Protein Trace (Neg-Trace) mg/dL Urine Glucose (UA) Negative (Negative) mg/dL Urine Ketones Trace (Negative) mg/dL Urine Blood Negative (Negative) Urine Nitrite Negative (Negative) Ur Leukocyte Esterase Negative (Negative) Urine Opiates Screen POSITIVE H (Not Detect) Ur Buprenorphine Scrn Not Detected (Not Detect) ng/mL Ur Oxycodone Screen Not Detected (Not Detect) ng/mL Urine Methadone Screen Not Detected (Not Detect) ng/mL Urine Fentanyl Screen POSITIVE H (Not Detect) Ur Barbiturates Screen Not Detected (Not Detect) Ur Phencyclidine Scrn Not Detected (Not Detect) Ur Amphetamines Screen Not Detected (Not Detect) U Benzodiazepines Scrn Not Detected (Not Detect) Urine Cocaine Screen POSITIVE H (Not Detect) U Marijuana (THC) Screen Not Detected (Not Detect) Ethyl Alcohol mg/dL 08/11/25 Range/Units 12:55 WBC (4.8-10.8) X10*3/uL RBC (4.60-5.80) X10*6/uL Hgb (14.0-18.0) g/dl Hct (42.0-52.0) % MCV (80.0-98.0) fL MCH (27.0-33.0) pg MCHC (31.0-36.0) g/dl RDW (11.0-16.0) % Plt Count (160-400) X10*3/uL MPV (9.4-12.4) fL Immature Gran % (Auto) Neut % (Auto) Lymph % (Auto) [place] % (Auto) Eos % (Auto) Baso % (Auto) Lymph # (Auto) [place] # (Auto) Eos # (Auto) Baso # (Auto) Abs Immat Gran (auto) Absolute Neuts (auto) Absolute Nucleated RBC (0.0-0.012) X10*3/uL Nucleated RBC % (auto) (0.0-0.2) /100WBC Neutrophils % (Manual) (45-73) % Band Neutrophils % (3-5) % Lymphocytes % (Manual) (20-40) % Monocytes % (Manual) (2-11) % Basophils % (Manual) (0-2) % Abs Neuts (Manual) (2.0-8.3) X10*3/uL Lymphocytes # (Manual) (1.2-4.9) X10*3/uL Toxic Vacuolation Platelet Estimate (NORMAL) Plt Morphology Comment RBC Morphology Polychromasia /OIF Basophilic Stippling /OIF Microcytosis /OIF Sodium (135-145) mmol/L Potassium (3.3-5.1) mmol/L Chloride (96-108) mmol/L Carbon Dioxide (22-29) mmol/L Anion Gap (12-20) BUN (9-16) mg/dL Creatinine (0.5-1.4) mg/dL Estim Creat Clear Calc Estimated GFR POC Glucose (60-115) mg/dL Random Glucose (60-115) mg/dL Lactic Acid (0.5-2.0) mmol/L Lactic Acid F/U @ 2Hr (0.5-2.0) mmol/L Lactic Acid F/U @ 4Hr 2.2 H* (0.5-2.0) mmol/L Calcium (8.4-10.2) mg/dL Magnesium (1.6-2.6) mg/dL Total Bilirubin (0.0-1.0) mg/dL AST (5-37) U/L ALT (0-40) U/L Alkaline Phosphatase (39-117) U/L Total Creatine Kinase 454 H (38-174) U/L Troponin I High Sens (<3.5-35.0) ng/L Total Protein (6.5-8.0) g/dL Albumin (3.5-5.0) g/dL Urine Color Urine Appearance Urine pH (5.0-9.0) Ur Specific [place] (1.005-1.025) Urine Protein (Neg-Trace) mg/dL Urine Glucose (UA) (Negative) mg/dL Urine Ketones (Negative) mg/dL Urine Blood (Negative) Urine Nitrite (Negative) Ur Leukocyte Esterase (Negative) Urine Opiates Screen (Not Detect) Ur Buprenorphine Scrn (Not Detect) ng/mL Ur Oxycodone Screen (Not Detect) ng/mL Urine Methadone Screen (Not Detect) ng/mL Urine Fentanyl Screen (Not Detect) Ur Barbiturates Screen (Not Detect) Ur Phencyclidine Scrn (Not Detect) Ur Amphetamines Screen (Not Detect) U Benzodiazepines Scrn (Not Detect) Urine Cocaine Screen (Not Detect) U Marijuana (THC) Screen (Not Detect) Ethyl Alcohol mg/dL Independent Interpretation I performed an independent interpretation of an: EKG and CT Scan Interpretation: I personally interpreted the EKG which reveals normal sinus rhythm with nonspecific ST abnormality, no significant ST elevation/depression, dysrhythmia, prolonged QT Vent. Rate : 99 BPM Atrial Rate : 99 BPM P-R Int : 132 ms QRS Dur : 92 ms QT Int : 360 ms P-R-T Axes : 60 29 41 degrees QTcB Int : 462 ms Normal sinus rhythm Possible Left atrial enlargement Nonspecific ST abnormality Abnormal ECG When compared with ECG of 24-Jun-2024 14:32, No significant change was found I personally interpreted the CT head/brain which was negative for ICH, acute intracranial abnormality, I agree with the radiologist's interpretation I personally interpreted the chest x-ray which was negative for consolidations, home infiltrates, pneumothorax, pleural effusion, pulmonary edema, I agree with the radiologist's interpretation Radiology Impression Discussion of test interpretation with radiology: I have reviewed the radiologist's reading. Radiologist Impression: CT head/brain FINDINGS: No acute intracranial hemorrhage, mass effect, midline shift, hydrocephalus or herniation. Ventura-white matter differentiation is normal. Posterior cranial fossa contents demonstrated no gross hemorrhage or mass effect. Normal position of the cerebellar tonsils. Sellar/suprasellar region demonstrated no gross masses. Old traumatic deformities in the nasal bones and right zygomatic arc. No air-fluid levels in the paranasal sinuses. Small retention cyst, sphenoid sinus. Tympanic cavities and mastoid cells are aerated. 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 CT/CT head/brain wo IV con IMPRESSION: No acute intracranial hemorrhage or acute brain abnormality by CT. Electronically signed by: Dayne Abrams MD 08/11/2025 09:22 AM EDT Dictated By: Dayne Cain MD Signed By: <Electronically signed by Dayne Bridges MD in OV> 08/11/[address] abdomen and pelvis FINDINGS: LUNG BASES: Mild dependent atelectatic changes are present. There were no effusions. Heart size is borderline enlarged. Small type I hiatus hernia suspected. LIVER, GALLBLADDER, AND BILIARY TREE: The liver is mildly enlarged, demonstrates early cirrhotic morphology. There is diffuse mild fatty infiltration. There is periportal edema present. There is no suspicious focal hepatic lesion. There is small volume perihepatic ascites present. The gallbladder is unremarkable with no evidence of radiopaque gallstones, gallbladder wall thickening, or obvious pericholecystic inflammatory changes. PANCREAS: Unremarkable. SPLEEN: There is splenomegaly. There is no splenic lesion. There is trace perisplenic ascites. ADRENAL GLANDS: Unremarkable. KIDNEYS AND URETERS: The kidneys are normal in size, shape, and attenuation. No hydronephrosis, hydroureter, or calculi seen. No perinephric stranding. BLADDER: Unremarkable. GASTROINTESTINAL TRACT: A small, and large bowel demonstrate no acute abnormalities. No bowel obstruction or inflammation. No CT evidence of acute appendicitis. ABDOMINAL WALL: No significant hernia is appreciated. LYMPH NODES: There is abnormal lymphadenopathy in both inguinal regions, with lymph nodes measuring up to 1.5 cm short axis. These are presumably reactive. Etiology is not clear on this exam. No intra-abdominal or pelvic abnormal lymphadenopathy present. VASCULAR: Mild atheromatous calcification of the iliac arteries. No aortic aneurysm. PELVIC VISCERA: The prostate and seminal vesicles are unremarkable. OSSEOUS STRUCTURES: L5 limbus vertebra. Mild irregular endplate changes present at L4-5 oriented to the right. There is disc vacuum phenomenon within the disc space. There are no gross erosive or permeative changes identified. There is no suspicious lytic or blastic bone lesion. Overall the appearance of the lumbar spine is not significantly changed from 06/24/2024. There are mild to moderate degenerative changes of both hip joints. CT/CT abdomen pelvis w IV con IMPRESSION: 1. Prominent lymphadenopathy in the bilateral inguinal regions, of uncertain etiology. This had a similar appearance on the prior CT exam. 2. Hepatosplenomegaly. Diffuse fatty infiltration of the liver with early cirrhotic morphology. Periportal edema is present, nonspecific. 3. Small volume ascites surrounding the liver and spleen. Etiology is not clear however may be on the basis of portal hypertension. 4. Stable appearance of the lumbar spine without new permeative or erosive change. Electronically signed by: Scot Satnos MD 08/11/2025 12:19 PM EDT RP Dictated By: Scot Santos MD Signed By: <Electronically signed by Scot Santos MD in [place]> 08/11/25 1219 CXR FINDINGS: Two AP portable views of the chest performed at 11:20 AM are submitted. The lungs are expanded and clear. There is no pleural effusion, pneumothorax, or pulmonary vascular congestion. The heart is normal in size. There is mild degenerative disc disease of the spine. XR/XR chest 1V IMPRESSION: No acute cardiopulmonary abnormality. Electronically signed by: Javier Aguirre MD 08/11/2025 11:32 AM EDT RP Dictated By: Javier Aguirre MD Signed By: <Electronically signed by Javier Augirre MD in [place]> 08/11/25 1132 Independent Historian Clinical information obtained from an independent historian. History obtained from or confirmed by: EMS External Record Review External record reviewed: Inpatient record, Office record and Outpatient record Chronic Conditions Patient?s care impacted by: Other (PTSD, depression, IVDU, alcohol use disorder) Social Determinants Patient?s care significantly limited by Social Determinants of Health including: Other Social Determinant of Health Critical Care Time Critical Care Time Total Critical Care Time: 68 Attestation: I personally provided 68 minutes of critical care time she is due to altered mental status, electrolyte abnormality including hypokalemia, hypomagnesemia, alcohol withdrawal patient met sepsis protocol and received IV antibiotics and fluid bolus. Patient required less likely significant reassessment due to alcohol withdrawal. Phenobarbital protocol initiated. This patient requires frequent monitoring of vital signs and mental status, with collaboration of nursing staff and medical staff for admission to medicine. Discharge Plan Discharge Clinical Impression: Active substance abuse, Wound check, abscess Patient Disposition: Admitted As Inpatient Interventions: Admission Worksheet (ED) Last Done: 08/11/25 16:45 Discharge Date/Time: 08/11/25 17:42
--- NOTE | 2025-08-11 07:55 | ECG_ITS ---
Test Reason : altered mental status Blood Pressure : */* mmHG Vent. Rate : 99 BPM Atrial Rate : 99 BPM P-R Int : 132 ms QRS Dur : 92 ms QT Int : 360 ms P-R-T Axes : 60 29 41 degrees QTcB Int : 462 ms Normal sinus rhythm Possible Left atrial enlargement Nonspecific ST abnormality Abnormal ECG When compared with ECG of 24-Jun-2024 14:32, No significant change was found Referred By: Jennifer Escudero Electronically Signed By: Elgin Kingsley
[2025-08-11] MEDS: LACTATED RINGERS 2667.12 ML IV (08:09)
[2025-08-11] MEDS: vancomycin/NS 2,000 MG/500 ML PLAST..BAG 250 MG IV (08:09)
[2025-08-11 08:12] LABS: Hematocrit 28.2 % (42.0-52.0); Hemoglobin 9.2 g/dl (14.0-18.0); Mean Corpuscular HGB Conc 32.6 g/dl (31.0-36.0); Mean Corpuscular Hemoglobin 21.0 pg (27.0-33.0); Mean Corpuscular Volume 64.2 fL (80.0-98.0); NRBC Abs Auto 0.020 X10*3/uL (0.0-0.012); NRBC Pct Auto 0.4 /100WBC (0.0-0.2); Platelet Count 271 X10*3/uL (160-400); Red Blood Count 4.39 X10*6/uL (4.60-5.80); White Blood Count 4.7 X10*3/uL (4.8-10.8)
[2025-08-11 08:13] LABS: Alanine Aminotransferase 61 U/L (0-40); Albumin Level 3.6 g/dL (3.5-5.0); Alkaline Phosphatase 282 U/L (39-117); Anion Gap 15 (12-20); Aspartate Amino Transferase 161 U/L (5-37); Blood Urea Nitrogen 12 mg/dL (9-16); Calcium 8.5 mg/dL (8.4-10.2); Carbon Dioxide 22 mmol/L (22-29); Chloride 102 mmol/L (96-108); Creatinine Clr Calc Pharmacy 111.1; Estimated Glomerular Filt Rate > 60; Magnesium 1.5 mg/dL (1.6-2.6); Potassium 3.1 mmol/L (3.3-5.1); Sodium 136 mmol/L (135-145); Total Protein 7.2 g/dL (6.5-8.0)
[2025-08-11 08:19] LABS: Troponin-I High Sensitivity 7.2 ng/L (<3.5-35.0)
[2025-08-11 08:40] LABS: Neutrophils Percent Manual 72 % (45-73)
[2025-08-11 08:42] LABS: Band Neutrophils Percent 23 % (3-5); Basophils Percent Manual 1 % (0-2); Lymphocytes Absolute Manual 0.1 X10*3/uL (1.2-4.9); Lymphocytes Percent Manual 3 % (20-40); Microcytosis 1+ (5-14) /OIF; Monocytes Percent Manual 1 % (2-11); Neutrophils Absolute Manual 4.5 X10*3/uL (2.0-8.3); RBC Morphology NOTED
[2025-08-11 08:43] LABS: Basophilic Stippling 1+ (0-2) /OIF
--- NOTE | 2025-08-11 08:43 | PC.NURSE ---
Pt brought in by EMS from [facility]. Found down by PD. Unsure downtime. Pt incoherent speech. GREGORIO equally. DNFC. Rectal temp 102.7. Slightly tachycardic. SpO2 90% on RA. Placed on 2LNC. Clear BBS. [place] feet very wet/boggy. Open sores to same. Wounds to BLE and BUE. Swelling/erythema to RFA/RH. Hx of IVDU. US 20LUA placed. Bld cxs obtained, abx started per JAN. IVF.
[2025-08-11 08:44] LABS: Polychromasia 2+ (3-5) /OIF
[2025-08-11 08:45] LABS: Toxic Vacuolation PRESENT
--- OUTSIDE RECORDS SUMMARY | 2025-08-11 08:48 | XMS_ITS ---
Author Organization [employer] Address [address] [place] [id number] Care Team Providers Care Intermediate Frame Tender Name Role Phone Yenny Alejo Primary Care Provider Jamilah Hilario RN Unavailable Unavailable Leonor Mace MA Unavailable Unavaila Jane Capps CHW Unavailable Unavail able CHW Complex Status:Outreach In Progress (Enrolling) Start date:07/03/2025 Enrollment reason:ADT Feed Case Team Name Relationship Phone Jane Patel CHW(Responsible Staff) Continued Care and Services Coordination
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
--- OUTSIDE RECORDS SUMMARY | 2025-08-11 08:48 | XMS_ITS | Encounter Summary ---
Author Organization [employer] Address [address] [facility] [address] [place] [address] Care Team Providers Care Multicut Line Operator Name Role Phone Yenny Alejo Primary Care Provider Jamilah Hilario RN Unavailable Unavailable Leonor Mace MA Unavailable Unavaila tessa KittenTrevor mandujanomigillian CHW Unavailable Unavail able Encounter Details Date Type Department Care Team ([facility] Contact Info) Description 05/05/2025 Telephone [facility] for the [facility] Medical [address] [place] [address] Yenny Alejo AGNP [address] [place] [address] Social History Tobacco Use Types [...] documented as of this encounter Care Teams Multicut Line Operator Relationship Specialty Start Date End Date Yenny Alejo AGNP PCP - General Internal Medicine 05/13/24 Jamilah Hilario, RN Registered Nurse Substance Use Disorder Treatment 01/03/25 Leonor Mace MA Substance Use Disorder Treatment 01/03/25 Jane Patel CHW 07/02/[address] [address] 06/23/[address] [place] 12/17/24 documented as of this encounter
--- OUTSIDE RECORDS SUMMARY | 2025-08-11 08:49 | XMS_ITS | Encounter Summary ---
Author Organization [employer] Address [address] [address] Care Team Providers Care Associate Professor Computer Science Name Role Phone Yenny Alejo Primary Care Provider Jamilah Hilario RN Unavailable Unavailable Leonor Mace MA Unavailable Unavaila ble Kittenplan, Brumilda CHW Unavailable Unavail able Reason for Visit * Reason Onset Date Comments Med Refill 03/23/2025 Encounter Details Date Type Department Care Team (Late st Contact Info) Description 03/23/2025 Refill [facility] Medical [address] [place] [address] Yenny Alejo AGNP [address] [place] [address] Opioid use disorder Social History [...] documented as of this encounter Care Teams Associate Professor Computer Science Relationship Specialty Start Date End Date Yenny Alejo AGNP PCP - General Internal Medicine 05/13/24 Jamilah Hilario, KRISTOPHER Registered Nurse Substance Use Disorder Treatment 01/03/25 Leonor Mace MA Substance Use Disorder Treatment 01/03/25 Jane Patel CHW 07/02/[address] [address] 06/23/[address] [place] 12/17/24 documented as of this encounter
[2025-08-11 09:55] LABS: Reflex Lactate? Lactic Acid Added
[2025-08-11] MEDS: Magnesium Sulfate/H2O 2 GM/50 ML PIGGYBACK IV (10:33)
[2025-08-11] MEDS: Potassium Chloride/H20 10 MEQ/100 ML PIGGYBACK 100 MEQ IV ×2 (10:55→12:15)
[2025-08-11 10:57] LABS: ~Lactic Acid-LAB USE ONLY 2.1 mmol/L (0.5-2.0)
--- NOTE | 2025-08-11 10:58 | PC.NURSE ---
Hospitalist (Earlene Olmdeo) at bedside speaking with patient. Plan to admit the patient.
--- NOTE | 2025-08-11 11:23 | PC.NURSE ---
Xray at bedside at this time.
[2025-08-11] MEDS: iohexoL 350 MG/ML 100 ML INFUS..BTL IV (11:52)
[2025-08-11 12:10] LABS: Appearance Urine Clear; Glucose Urine UA Negative (Negative); PH 6.5 (5.0-9.0); Specific Gravity - Urine 1.015 (1.005-1.025)
[2025-08-11 12:19] LABS: Cannabinoid Screen Urine Not Detected (Not Detect)
--- NOTE | 2025-08-11 12:31 | MHC.EDTECH ---
pt independently transferred to hospital bed. call [facility] within reach
[2025-08-11 12:33] LABS: Reflex Lactate? 2 Y
--- NOTE | 2025-08-11 12:40 | MHC.EDTECH ---
pt found to be diaphoretic, poc checked 148, vitals wnl BP slightly soft 106/53. RN made aware
[2025-08-11 12:44] LABS: Glucose, Whole Blood 148 mg/dL (60-115)
--- NOTE | 2025-08-11 13:00 | P.HPHOSP_ITS ---
History of Present Illness Date of Service: 08/11/25 Attending physician on admission: Memo Lozano Chief Complaint: found outside This is a 45-year-old male with history of IVDU, alcohol use disorder was brought into the hospital after being found outside by the police. He was noted to have a fever of 102.2, and was noted to be tachycardic, tachypneic. Initially he was somnolent but throughout the course of his time in the emergency department he became more alert. Workup in the emergency department was significant for lactic acidosis with an initial lactic acid of 3.4 which improved to 2.1 after fluids. Potassium was low at 3.1, magnesium was low at 1.5. LFTs were elevated. Tox screen was positive for opiates, fentanyl, cocaine. Brain CT was unremarkable. Right hand was noted to be red with multiple wounds, bilateral feet were noted to be macerated. Chest x-ray, urinalysis and CT of the abdomen and pelvis did not show any infectious process. Patient reports drinking 1 L of vodka daily, using cocaine and heroin intravenously. He does admit to injecting in his right hand. In the emergency department he received 30 cc/kg bolus of IV fluid, empiric antibiotics with IV Zosyn and IV vancomycin. Review of Systems 2 Review of Systems: Yes all other systems are reviewed and are negative Constitutional: Constitutional: Denies chills and Reports fever(s) Cardiovascular: Cardiovascular: Denies chest pain PMFSH Medical History Bacteremia Depression Polysubstance abuse IVDU (intravenous drug user) Alcohol dependence Recurrent major depression-severe PTSD (post-traumatic stress disorder) PTSD (post-traumatic stress disorder) Hep C w/o coma, chronic Surgical History History of surgery on arm Social History (Updated 08/11/25 @ 13:08 by ALEIDA Michel) Household Members: None Household Members Other:: unable to obtain information from patient d/t sedation. Housing: Homeless Do you presently have visiting nurse or other home services: No Unable to assess alcohol history related to: Unable to respond Alcohol intake: current Alcohol intake frequency: a few times a week Alcohol type: beer and hard liquor Patient Tobacco Use Status: Current everyday Tobacco user Tobacco use type: Smokeless Tobacco Cigarette Packs Per Day: 2 Cigarettes Per Day: 40.0 Years Smoked: unknown e-Cigarette/Vaping Use: Currently Using Second Hand Smoke Exposure: No Use of substances other than those prescribed or required for medical reasons: Unable to respond Substance Use Type: Crack/Cocaine and Heroin Advance Directives: No Advance Directives Information Provided: No Do you have a plan to hurt others: No Plan service: No Sexual orientation: Straight/Heterosexual Meds Allergies Allergy/AdvReac Type Severity Reaction Status Date / Time fish derived (FISH) Allergy Unknown UNKNOWN - Verified 08/11/25 07:25 NOT ANAPHYLAXIS PER PATIENT trazodone AdvReac Severe priapr Verified 08/11/25 07:25 tomato AdvReac Stomach Verified 08/11/25 07:25 Upset Active Medications: Current Medications Acetaminophen (Acetaminophen 325 Mg Tablet) 650 mg PO Q6H PRN PRN Reason: Pain, Mild 1-3,fever,headache Calcium Carbonate (Calcium Carbonate 750 Mg Tab.Chew) 750 mg PO Q4H PRN PRN Reason: Heartburn Heparin Sodium (Porcine) (Heparin Sodium,Porcine 5,000 Unit/Ml Vial) 5,000 unit SUBCUT Q12H MELQUIADES Lactated Ringer's (Lr) 1,000 mls @ 100 mls/hr IVCONT .Q10H MELQUIADES Piperacillin Sod/Tazobactam (Sod 4.5 gm/ Sodium Chloride) 100 mls @ 200 mls/hr IV Q6H M[place]QU[place]ADES Magnesium Hydroxide (Milk Of Magnesia 30 Ml Oral.Susp) 30 ml PO DAILY PRN PRN Reason: Constipation Melatonin (Melatonin 3 Mg Tablet) 6 mg PO BEDTIME PRN PRN Reason: Insomnia Pharmacy Consult (Consult Rx Vancomycin Dosing) 1 each MISCELLANE DAILY PRN PRN Reason: Consult order Sodium Chloride (0.9 % Sodium Chloride Flush 3 Ml Syringe) 3 ml IVFLUSH QSHIFT [facility] Home Medications ?Medication ?Instructions ?Recorded ?Confirmed ?Last Taken ?Type gabapentin 800 mg tablet 800 mg PO TID 06/24/2407/2607/19/24 History clonidine HCl 0.1 mg tablet 0.1 mg PO BEDTIME 07/26/24 07/26/24 07/19/24 History hydroxyzine HCl 50 mg tablet 50 mg PO BEDTIME 07/26/24 07/26/24 07/19/24 History Physical Exam 2 Vital Signs and Narrative: Vital Signs: Last Vital Signs Temp 99.0 F 08/11/25 12:39 Pulse 80 08/11/25 12:39 Resp 13 08/11/25 12:39 BP 106/53 L 08/11/25 12:39 Pulse Ox 93 08/11/25 12:39 O2 Del Method Room Air 08/11/25 12:39 O2 Flow Rate 2 08/11/25 08:42 BMI result Body Mass Index 29.8 Const: Other: sleepy but easily arousable to verbal stimuli; unkempt General: no acute distress and poor hygiene Resp: Effort & Inspection: normal respiratory effort, able to speak in complete sentences, no respiratory distress and no use of accessory muscles A uscultation: clear to auscultation bilaterally Cardio: Rate: regular rate GI: Inspection: No distended Palpation (GI): Soft to palpation Neuro: Other: b/l feet with severe maceration of plantar surface; right hand with erythema, swelling and multiple open wounds General: moves all extremities and CN's II-XI intact bilaterally Extrem: Other: good peripheral pulses, able to extend fingers of right hand; making a fist limited by edema Results Labs 08/11/25 07:48 08/11/25 07:49 Labs: Laboratory Results - last 24 hr 08/11/25 08/11/25 08/11/25 07:48 07:49 07:52 MCV 64.2 L MCH 21.0 L MCHC 32.6 RDW 16.9 H Plt Count 271 D MPV 9.9 Immature Gran % (Auto) Cancelled Neut % (Auto) Cancelled Lymph % (Auto) Cancelled [place] % (Auto) Cancelled Eos % (Auto) Cancelled Baso % (Auto) Cancelled Lymph # (Auto) Cancelled [place] # (Auto) Cancelled Eos # (Auto) Cancelled Baso # (Auto) Cancelled Abs Immat Gran (auto) Cancelled Absolute Neuts (auto) Cancelled Absolute Nucleated RBC 0.020 H Nucleated RBC % (auto) 0.4 H Neutrophils % (Manual) 72 Band Neutrophils % 23 H Lymphocytes % (Manual) 3 L Monocytes % (Manual) 1 L Basophils % (Manual) 1 Abs Neuts (Manual) 4.5 Lymphocytes # (Manual) 0.1 L Toxic Vacuolation PRESENT Platelet Estimate NORMAL Plt Morphology Comment NORMAL RBC Morphology NOTED Polychromasia 2+ (3-5) Basophilic Stippling 1+ (0-2) Microcytosis 1+ (5-14) Anion Gap 15 Estim Creat Clear Calc 111.1 Estimated GFR > 60 POC Glucose Random Glucose 67 Lactic Acid 3.4 H* Lactic Acid F/U @ 2Hr Calcium 8.5 Magnesium 1.5 L Total Bilirubin 2.4 H AST 161 H ALT 61 H Alkaline Phosphatase 282 H Troponin I High Sens 7.2 D Total Protein 7.2 Albumin 3.6 Urine Color Urine Appearance Urine pH Ur Specific [place] Urine Protein Urine Glucose (UA) Urine Ketones Urine Blood Urine Nitrite Ur Leukocyte Esterase Urine Opiates Screen Ur Buprenorphine Scrn Ur Oxycodone Screen Urine Methadone Screen Urine Fentanyl Screen Ur Barbiturates Screen Ur Phencyclidine Scrn Ur Amphetamines Screen U Benzodiazepines Scrn Urine Cocaine Screen U Marijuana (THC) Screen 08/11/25 08/11/25 08/11/25 10:31 12:01 12:37 MCV MCH MCHC RDW Plt Count MPV Immature Gran % (Auto) Neut % (Auto) Lymph % (Auto) [place] % (Auto) Eos % (Auto) Baso % (Auto) Lymph # (Auto) [place] # (Auto) Eos # (Auto) Baso # (Auto) Abs Immat Gran (auto) Absolute Neuts (auto) Absolute Nucleated RBC Nucleated RBC % (auto) Neutrophils % (Manual) Band Neutrophils % Lymphocytes % (Manual) Monocytes % (Manual) Basophils % (Manual) Abs Neuts (Manual) Lymphocytes # (Manual) Toxic Vacuolation Platelet Estimate Plt Morphology Comment RBC Morphology Polychromasia Basophilic Stippling Microcytosis Anion Gap Estim Creat Clear Calc Estimated GFR POC Glucose 148 H Random Glucose Lactic Acid Lactic Acid F/U @ 2Hr 2.1 H* Calcium Magnesium Total Bilirubin AST ALT Alkaline Phosphatase Troponin I High Sens Total Protein Albumin Urine Color Yellow Urine Appearance Clear Urine pH 6.5 Ur Specific [place] 1.015 Urine Protein Trace Urine Glucose (UA) Negative Urine Ketones Trace Urine Blood Negative Urine Nitrite Negative Ur Leukocyte Esterase Negative Urine Opiates Screen POSITIVE H Ur Buprenorphine Scrn Not Detected Ur Oxycodone Screen Not Detected Urine Methadone Screen Not Detected Urine Fentanyl Screen POSITIVE H Ur Barbiturates Screen Not Detected Ur Phencyclidine Scrn Not Detected Ur Amphetamines Screen Not Detected U Benzodiazepines Scrn Not Detected Urine Cocaine Screen POSITIVE H U Marijuana (THC) Screen Not Detected Imaging Radiologist's Impressions: Impressions Head CT 08/11/25 08:57 IMPRESSION: No acute intracranial hemorrhage or acute brain abnormality by CT. Electronically signed by: Dayne Abrams MD 08/11/2025 09:22 AM EDT RP Chest X-Ray 08/11/25 11:19 IMPRESSION: No acute cardiopulmonary abnormality. Electronically signed by: Javier Aguirre MD 08/11/2025 11:32 AM EDT RP Abdomen/Pelvis CT 08/11/25 11:42 IMPRESSION: 1. Prominent lymphadenopathy in the bilateral inguinal regions, of uncertain etiology. This had a similar appearance on the prior CT exam. 2. Hepatosplenomegaly. Diffuse fatty infiltration of the liver with early cirrhotic morphology. Periportal edema is present, nonspecific. 3. Small volume ascites surrounding the liver and spleen. Etiology is not clear however may be on the basis of portal hypertension. 4. Stable appearance of the lumbar spine without new permeative or erosive change. Electronically signed by: Scot Santos MD 08/11/2025 12:19 PM EDT RP Assessment and Plan (1) Active substance abuse: Status: Acute Plan This is a 45 year old male with history of IVDU, etoh use disorder, HCV, PTSD, mood disorder, h/o MSSA bacteremia, h/o T11-T12 discitis who was brought into the ED by PD after he was found outside and alerted found to have fever and right hand cellulitis Sepsis with severe features due to right hand cellulitis in a pt with active IVDU rule out bacteremia s/p 30 cc/kg bolus, lactic acid trending down IV vancomycin and zosyn follow blood cultures would care IVDU follow COWS Tox screen positive for opiates, fentanyl, cocaine addiction medicine consult Alcohol use disorder with acute alcohol withdrawal Scoring over 8 on CIWA Started on phenobarbital protocol in the emergency department supplementation with thiamine and folic acid Elevated LFTs likely due to underlying HCV, imaging with diffuse fatty infiltration and early cirrhotic morphology trend LFTs, if remain elevated consider abdominal US will need outpatient follow up mild rhabdomyolysis likely due to drug use no evidence of compartment syndrome of right arm trending down with IVF skin maceration of b/l feet due to moist environment wound care Hypokalemia/Hypomagnesemia Replace and follow b/l inguinal lymphadenopathy seen on previous imaging ideally would have outpatient follow up dvt ppx - heparin Patient will likely require 2 midnight stay in the hospital for management of acute alcohol withdrawal, severe sepsis necessitating IV antibiotics, IV fluid resuscitation and close monitoring of mental status, with high risk for decompensation Quality Stroke Does the patient have a stroke diagnosis?: No VTE Prior VTE?: No VTE Risk Level:: Medical - moderate - high VTE Device Contraindication: N/A - Device Ordered VTE Drug Contraindication: N/A - Med Ordered
--- NOTE | 2025-08-11 13:18 | PHA.PROG ---
Admission Date/Time: Indication: Weight in k.904 kg Adjusted body weight in Kg: [facility] body weight in Kg: Obesity Dosing Indication % IBW: Serum Creatinine - Last 168 Hours 08/11/25 07:49 Creatinine 0.90 Estimated CrCl and GFR - Last 168 Hours 08/11/25 07:49 Estim Creat Clear Calc 111.1 Estimated GFR > 60 Vancomycin Loading Dose: 1999 Current Vancomycin Dosing Regimen: 1250 q12h Vancomycin Monitoring using AUC goal of 400 - 600 range with trough as surrogate marker: 520 Date and Time for next Vancomycin Level to be drawn 08/12 Pharmacist Comments on Vancomycin Plan: Vancomycin dosing will take advantage of [employer] as a clinical decision support tool that uses Bayesian modeling to calculate individual patient's pharmacokinetic parameters and forecast the patient's drug concentration time course with the target goal AUC 24 range of 400 - 600 mg/L/hr.
--- NOTE | 2025-08-11 13:21 | HO.WOUND ---
Wound Consult: Initial 45yr old male admitted to [facility] on 08/11/25- See progress notes and H&P for detailed history. Wound consult placed for right hand and right foot wounds. Patient agreeable to assessment and photo documentation, patient sleepy, arousable, RN at bedside. Per notes, patient found down in the community, wears plastic bags for socks and arrived with wet macerated feet. patient with history of wounding from IVDU requiring I&D and surgery. patient unable to answer questions at this time. Right medial heel Etiology: Likely skin tear due to moisture as seen in provider admission documentation- patient with previous wounding to this area as well Measurements: 2cm x 2cm x 0.1cm Wound Bed: moist red Drainage / Odor: scant serous Edges: ? attahec [place] wound: ? No Induration, Fluctuance or Warmth noted - mild macerating improving Pain: none reported Goals of Treatment: ? moist wound healing and offloading Etiology: IVDU cluster of several wounds Wound Bed: parial and full thickness wounding, moist red bases, surrounding skin is thickened and dry Drainage / Odor: none Edges: ? irregular, rolled [place] wound: ? No Induration, Fluctuance, right hand and wrist with redness, swelling and Warmth noted Pain: none reported Goals of Treatment: ? moist wound healing with xeroform Right lateral heel Etiology: deep tissue pressure injury Present on Admission Measurements: 1cm x 1cm x 0cm Wound Bed: dark brown/maroon intact, feels like superficial blister Drainage / Odor: none Edges: ? [place] wound: ? No Induration, Fluctuance or Warmth noted Pain: none Goals of Treatment: ? offloading Deep tissue pressure injury: Intact or non intact skin with localized are of non-blanchable deep red, maroon, purple discoloration OR epidermal separation revealing a dark wound bed OR blood filled blister. Pain and temperature changes often precede color changes, can show 48-72 hours later. May resolve without causing ulceration or full thickness skin loss, or it may evolve to reveal actual extent of tissue injury. Prolonged down time: pressure injuries sustained from periods of prolonged down time can evolve over several days. continue to monitor resolution/evolution of skin injuries. Left leg Right leg BIlateral legs with multiple scabs and scratches, patient with history of IVDU, homeless, per notes found down in the community prior to ED. all areas are dry and scabbed recommend leaving open to air. if areas open/drain, may apply xeroform. Right foot Left foot bilateral feet with moist macerated skin upon arrival to ED, skin is improved on assessment now compared to provider pictures previous. skin is intact and largely flesh toned with the exception of bilateral toes remaining with white water-logged skin. feet are warm with palpable pulses. Recommendations: 1. Turn and Reposition every 2 hours and as needed for patient comfort. Use pillows or wedges to support off loading positions. 2. Off Load all bony prominences with use of pillows and heel boots if needed. Apply Preventative foams where needed. 3. Monitor for incontinence and moisture control, use barrier creams when needed for prevention and treatment. 4. Provide adequate and supplemental nutrition. 5. Order or Continue low air loss mattress. 6. When applicable maintain blood glucose levels per Providers order. Right hand: cleanse with saline, apply xeroform, cover with rolled gauze, change daily and PRN Right medial heel: cleanse with normal saline, apply durafiber, cover with foam, change every other day and PRN. Right Lateral heel: apply skin prep, cover with foam, change every 3 days and PRN Bilateral leg scabs: routine cleansing, may leave open to air, if open and draining may apply xeroform and foam/rolled gauze change daily and PRN. Re-consult wound care Nurse for wound deterioration or wound changes.
--- NOTE | 2025-08-11 13:29 | MHC.EDTECH ---
seizure pads placed d/t withdrawal symptoms
[2025-08-11 13:32] LABS: ~Lactic Acid-LAB USE ONLY 2.2 mmol/L (0.5-2.0)
[2025-08-11] MEDS: Lactated Ringers 1,000 ML 100 ML IVCONT ×2 (13:32→23:20)
[2025-08-11] MEDS: PHENobarbitaL sodium 130 MG/ML IM ONCE 330 MG IM (13:32)
--- NOTE | 2025-08-11 13:33 | PC.NURSE ---
Critical lactic of 2.2 taken from lab, primary Rn Mary made aware.
[2025-08-11 14:04] LABS: Ammonia 34 umol/L (13-55)
--- NOTE | 2025-08-11 14:41 | MHC.RECOVRN ---
TW attempted to meet with pt in ED-18 following consult placed to Addiction Medicine. Pt is resting with eyes closed, slightly diaphortic, in no apparent distress. Pt did not respond to name being called, respirations even and unlabored, vitals stable ACS team to attempt to meet pt later today or tomorrow, once pt presentation improves, for assessment/evaluation TW available for questions or concerns as needed
--- NOTE | 2025-08-11 15:33 | PM.EVENT ---
Event Note Date of Service: 08/11/25 Event Note: as per addiction med provider can use methadone 10 mg q3h prn opiate withdrawal max 4 doses if needed. currently patient lethargic and has received phenobarbitol IM dose. will hold off for now, but can be started when pt becomes more alert Time Spent With Patient Time: Total time managing care of this patient today ____ minutes.
[2025-08-11] MEDS: PHENobarbitaL sodium 130 MG/ML VIAL IM Q3Hx2 250 MG IM ×2 (16:55→20:34)
[2025-08-11] MEDS: 0.9 % Sodium Chloride Flush 3 ML SYRINGE IVFLUSH ×2 (16:56→19:29)
[2025-08-11 18:03] LABS: Glucose, Whole Blood 134 mg/dL (60-115)
--- NOTE | 2025-08-11 18:20 | MHC.RECOVRN ---
TW met with pt in 471 to offer support and resources after consult placed to Addiction Medicine for IVDU/AUD. On approach pt is sitting in bed & eating pudding with eyes closed. He is agreeable to meeting with TW. He presents as guarded with irritable edge and is difficult to follow with mumbled speech and frequently fell asleep during interview. When asked how he ended up at the hospital he rolls his eyes and states, a relapse, what do you think? Pt states he is consuming 3-4 bundles of heroin daily as well as 1 Ltr of Vodka. He also reports attending [facility] clinic and receiving 105mg/daily. He could not recall the last time he was dosed. Pt was unable to stay awake and fully participate in assessment. TW called [facility] to verify dosing and they report not having a record for this pt. Case was previously discussed w/ Floresita Barry NP. Recommendation was to initiate pt on 10mg methadone Q3 PRN for a max of 4 doses. Or, if awake and appropriate, initiate on 40mg methadone then titrate 10mg daily, up to 70mg. ACS team to reevaluate pt in the morning and is available for further support as needed.
[2025-08-12] VITALS (8 sets, daily range): BP systolic 82–123; BP diastolic 51–70; PULSE 64–80; RESP 16–18; TEMP 36.6–37.4; O2SAT 96–98
[2025-08-12] MEDS: Lactated Ringers 500 ML 999 ML IV (01:30)
[2025-08-12] MEDS: Lactated Ringers 1,000 ML 100 ML IVCONT ×5 (02:13→22:29)
[2025-08-12 02:34] LABS: Reflex Lactate? Lactic Acid Added
[2025-08-12 03:25] LABS: ~Lactic Acid-LAB USE ONLY 2.0 mmol/L (0.5-2.0)
[2025-08-12 07:33] LABS: Hematocrit 25.0 % (42.0-52.0); Hemoglobin 7.9 g/dl (14.0-18.0); Mean Corpuscular HGB Conc 31.6 g/dl (31.0-36.0); Mean Corpuscular Hemoglobin 20.6 pg (27.0-33.0); Mean Corpuscular Volume 65.1 fL (80.0-98.0); NRBC Abs Auto 0.000 X10*3/uL (0.0-0.012); NRBC Pct Auto 0.0 /100WBC (0.0-0.2); Platelet Count 270 X10*3/uL (160-400); Red Blood Count 3.84 X10*6/uL (4.60-5.80)
[2025-08-12 07:49] LABS: White Blood Count 29.3 X10*3/uL (4.8-10.8)
[2025-08-12 07:55] LABS: Alanine Aminotransferase 51 U/L (0-40); Albumin Level 2.9 g/dL (3.5-5.0); Alkaline Phosphatase 141 U/L (39-117); Anion Gap 9 (12-20); Aspartate Amino Transferase 110 U/L (5-37); Blood Urea Nitrogen 23 mg/dL (9-16); Calcium 8.0 mg/dL (8.4-10.2); Carbon Dioxide 26 mmol/L (22-29); Chloride 106 mmol/L (96-108); Creatinine Clr Calc Pharmacy 109.7; Estimated Glomerular Filt Rate > 60; Magnesium 2.2 mg/dL (1.6-2.6); Potassium 3.5 mmol/L (3.3-5.1); Sodium 137 mmol/L (135-145); Total Protein 6.4 g/dL (6.5-8.0)
[2025-08-12 08:30] LABS: Band Neutrophils Percent 20 % (3-5); Lymphocytes Absolute Manual 2.6 X10*3/uL (1.2-4.9); Lymphocytes Percent Manual 9 % (20-40); Metamyelocytes Absolute 0.3 X10*3/uL; Metamyelocytes Percent 1 %; Monocytes Absolute Manual 0.6 X10*3/uL (0.1-1.2); Monocytes Percent Manual 2 % (2-11); Neutrophils Absolute Manual 25.8 X10*3/uL (2.0-8.3); Neutrophils Percent Manual 68 % (45-73)
[2025-08-12 08:31] LABS: Microcytosis 1+ (5-14) /OIF; RBC Morphology NOTED
[2025-08-12 08:32] LABS: Dohle Bodies PRESENT; Polychromasia 1+ (0-2) /OIF; Schistocytes 1+ (0-2) /OIF; Spherocytes 1+ (0-2) /OIF; Stomatocytes 1+ (5-14) /OIF; Toxic Vacuolation PRESENT
[2025-08-12] MEDS: 0.9 % Sodium Chloride Flush 3 ML SYRINGE IVFLUSH ×2 (08:45→19:28)
--- NOTE | 2025-08-12 09:39 | P.PNIM_ITS ---
Subjective Subjective Date of Service: 08/12/25 Interval History: feeling ill Physical Exam 2 Exam: Exam: lethargic, ill appearing, maserated feet, systolic murmur Vital Signs: Vital Signs: Last Vital Signs Temp 97.8 F 08/12/25 07:14 Pulse 64 08/12/25 07:14 Resp 18 08/12/25 07:14 BP 109/64 08/12/25 07:14 Pulse Ox 97 08/12/25 07:14 O2 Del Method Room Air 08/12/25 07:14 O2 Flow Rate 2 08/11/25 08:42 BMI result Body Mass Index 27.6 Objective Data Active Medications Acetaminophen (Acetaminophen 325 Mg Tablet) 650 mg PO Q6H PRN PRN Reason: Pain, Mild 1-3,fever,headache Calcium Carbonate (Calcium Carbonate 750 Mg Tab.Chew) 750 mg PO Q4H PRN PRN Reason: Heartburn Folic Acid (Folic Acid 1 Mg Tablet) 1 mg PO DAILY [facility] Last Admin: 08/12/25 08:34 Dose: 1 mg Documented By: ALEX Heparin Sodium (Porcine) (Heparin Sodium,Porcine 5,000 Unit/Ml Vial) 5,000 unit SUBCUT Q12H [facility] Last Admin: 08/12/25 01:28 Dose: 5,000 unit Documented By: LAURA Lactated Ringer's (Lr) 1,000 mls @ 100 mls/hr IVCONT .Q10H [facility] Last Admin: 08/12/25 08:48 Dose: 100 mls/hr Documented By: ALEX Piperacillin Sod/Tazobactam (Sod 4.5 gm/ Sodium Chloride) 100 mls @ 200 mls/hr IV Q6H [facility] Last Infusion: 08/12/25 09:10 Dose: Infused Documented By: ALEX Vancomycin HCl 1,250 mg/ (Sodium Chloride) 250 mls @ 166.667 mls/hr IV Q12H [facility] Last Admin: 08/12/25 08:38 Dose: 166.67 mls/hr Documented By: ALEX Lactated Ringer's (Lr) 1,000 mls @ 100 mls/hr IVCONT .Q10H [facility] Last Admin: 08/12/25 02:13 Dose: 100 mls/hr Documented By: HO.FOXAS Magnesium Hydroxide (Milk Of Magnesia 30 Ml Oral.Susp) 30 ml PO DAILY PRN PRN Reason: Constipation Melatonin (Melatonin 3 Mg Tablet) 6 mg PO BEDTIME PRN PRN Reason: Insomnia Pharmacy Consult (Consult Rx Vancomycin Dosing) 1 each MISCELLANE DAILY PRN PRN Reason: Consult order Pharmacy Consult (Consult Rx Etoh Phenob Im/Po) 1 each MISCELLANE ONCE PRN; Protocol PRN Reason: Consult order Phenobarbital (Phenobarbital 15 Mg Tablet) 45 mg PO BID [facility]; Protocol Stop: 08/13/25 21:01 Last Admin: 08/12/25 08:34 Dose: 45 mg Documented By: ALEX Phenobarbital (Phenobarbital 30 Mg Tablet) 30 mg PO BID [facility]; Protocol Stop: 08/15/25 21:01 Phenobarbital (Phenobarbital 30 Mg Tablet) 30 mg PO DAILY [facility]; Protocol Stop: 08/17/25 09:01 Sodium Chloride (0.9 % Sodium Chloride Flush 3 Ml Syringe) 3 ml IVFLUSH QSHIFT [facility] Last Admin: 08/12/25 08:45 Dose: 3 ml Documented By: ALEX Thiamine HCl (Thiamine Hcl 100 Mg Tablet) 100 mg PO DAILY [facility] Last Admin: 08/12/25 08:34 Dose: 100 mg Documented By: ALEX Labs 08/12/25 07:12 08/12/25 07:12 Labs: Laboratory Results - last 24 hr 08/11/25 08/11/25 08/11/25 07:49 10:31 12:01 MCV MCH MCHC RDW Plt Count MPV Immature Gran % (Auto) Neut % (Auto) Lymph % (Auto) [place] % (Auto) Eos % (Auto) Baso % (Auto) Lymph # (Auto) [place] # (Auto) Eos # (Auto) Baso # (Auto) Abs Immat Gran (auto) Absolute Neuts (auto) Absolute Nucleated RBC Nucleated RBC % (auto) Neutrophils % (Manual) Band Neutrophils % Lymphocytes % (Manual) Monocytes % (Manual) Metamyelocytes % Abs Neuts (Manual) Lymphocytes # (Manual) Monocytes # (Manual) Metamyelocytes # Toxic Vacuolation Dohle Bodies Platelet Estimate Plt Morphology Comment RBC Morphology Polychromasia Microcytosis Spherocytes Stomatocytes Schistocytes Smear Tech's Comments Anion Gap Estim Creat Clear Calc Estimated GFR POC Glucose Random Glucose Lactic Acid Lactic Acid F/U @ 2Hr 2.1 H* Lactic Acid F/U @ 4Hr Calcium Magnesium Total Bilirubin Direct Bilirubin AST ALT Alkaline Phosphatase Ammonia Total Creatine Kinase 637 H Total Protein Albumin Urine Color Yellow Urine Appearance Clear Urine pH 6.5 Ur Specific [place] 1.015 Urine Protein Trace Urine Glucose (UA) Negative Urine Ketones Trace Urine Blood Negative Urine Nitrite Negative Ur Leukocyte Esterase Negative Urine Opiates Screen POSITIVE H Ur Buprenorphine Scrn Not Detected Ur Oxycodone Screen Not Detected Urine Methadone Screen Not Detected Urine Fentanyl Screen POSITIVE H Ur Barbiturates Screen Not Detected Ur Phencyclidine Scrn Not Detected Ur Amphetamines Screen Not Detected U Benzodiazepines Scrn Not Detected Urine Cocaine Screen POSITIVE H U Marijuana (THC) Screen Not Detected Ethyl Alcohol < 10 08/11/25 08/11/25 08/11/25 12:37 12:55 13:49 MCV MCH MCHC RDW Plt Count MPV Immature Gran % (Auto) Neut % (Auto) Lymph % (Auto) [place] % (Auto) Eos % (Auto) Baso % (Auto) Lymph # (Auto) [place] # (Auto) Eos # (Auto) Baso # (Auto) Abs Immat Gran (auto) Absolute Neuts (auto) Absolute Nucleated RBC Nucleated RBC % (auto) Neutrophils % (Manual) Band Neutrophils % Lymphocytes % (Manual) Monocytes % (Manual) Metamyelocytes % Abs Neuts (Manual) Lymphocytes # (Manual) Monocytes # (Manual) Metamyelocytes # Toxic Vacuolation Dohle Bodies Platelet Estimate Plt Morphology Comment RBC Morphology Polychromasia Microcytosis Spherocytes Stomatocytes Schistocytes Smear Tech's Comments Anion Gap Estim Creat Clear Calc Estimated GFR POC Glucose 148 H Random Glucose Lactic Acid Lactic Acid F/U @ 2Hr Lactic Acid F/U @ 4Hr 2.2 H* Calcium Magnesium Total Bilirubin Direct Bilirubin AST ALT Alkaline Phosphatase Ammonia 34 Total Creatine Kinase 454 H Total Protein Albumin Urine Color Urine Appearance Urine pH Ur Specific [place] Urine Protein Urine Glucose (UA) Urine Ketones Urine Blood Urine Nitrite Ur Leukocyte Esterase Urine Opiates Screen Ur Buprenorphine Scrn Ur Oxycodone Screen Urine Methadone Screen Urine Fentanyl Screen Ur Barbiturates Screen Ur Phencyclidine Scrn Ur Amphetamines Screen U Benzodiazepines Scrn Urine Cocaine Screen U Marijuana (THC) Screen Ethyl Alcohol 08/11/25 08/12/25 08/12/25 17:59 00:30 03:02 MCV MCH MCHC RDW Plt Count MPV Immature Gran % (Auto) Neut % (Auto) Lymph % (Auto) [place] % (Auto) Eos % (Auto) Baso % (Auto) Lymph # (Auto) [place] # (Auto) Eos # (Auto) Baso # (Auto) Abs Immat Gran (auto) Absolute Neuts (auto) Absolute Nucleated RBC Nucleated RBC % (auto) Neutrophils % (Manual) Band Neutrophils % Lymphocytes % (Manual) Monocytes % (Manual) Metamyelocytes % Abs Neuts (Manual) Lymphocytes # (Manual) Monocytes # (Manual) Metamyelocytes # Toxic Vacuolation Dohle Bodies Platelet Estimate Plt Morphology Comment RBC Morphology Polychromasia Microcytosis Spherocytes Stomatocytes Schistocytes Smear Tech's Comments Anion Gap Estim Creat Clear Calc Estimated GFR POC Glucose 134 H Random Glucose Lactic Acid 2.7 H* Lactic Acid F/U @ 2Hr 2.0 Lactic Acid F/U @ 4Hr Calcium Magnesium Total Bilirubin Direct Bilirubin AST ALT Alkaline Phosphatase Ammonia Total Creatine Kinase Total Protein Albumin Urine Color Urine Appearance Urine pH Ur Specific [place] Urine Protein Urine Glucose (UA) Urine Ketones Urine Blood Urine Nitrite Ur Leukocyte Esterase Urine Opiates Screen Ur Buprenorphine Scrn Ur Oxycodone Screen Urine Methadone Screen Urine Fentanyl Screen Ur Barbiturates Screen Ur Phencyclidine Scrn Ur Amphetamines Screen U Benzodiazepines Scrn Urine Cocaine Screen U Marijuana (THC) Screen Ethyl Alcohol 08/12/25 07:12 MCV 65.1 L MCH 20.6 L MCHC 31.6 RDW 16.9 H Plt Count 270 MPV 10.9 Immature Gran % (Auto) Cancelled Neut % (Auto) Cancelled Lymph % (Auto) Cancelled [place] % (Auto) Cancelled Eos % (Auto) Cancelled Baso % (Auto) Cancelled Lymph # (Auto) Cancelled [place] # (Auto) Cancelled Eos # (Auto) Cancelled Baso # (Auto) Cancelled Abs Immat Gran (auto) Cancelled Absolute Neuts (auto) Cancelled Absolute Nucleated RBC 0.000 Nucleated RBC % (auto) 0.0 Neutrophils % (Manual) 68 Band Neutrophils % 20 H Lymphocytes % (Manual) 9 L Monocytes % (Manual) 2 Metamyelocytes % 1 Abs Neuts (Manual) 25.8 H Lymphocytes # (Manual) 2.6 Monocytes # (Manual) 0.6 Metamyelocytes # 0.3 Toxic Vacuolation PRESENT Dohle Bodies PRESENT Platelet Estimate NORMAL Plt Morphology Comment NORMAL RBC Morphology NOTED Polychromasia 1+ (0-2) Microcytosis 1+ (5-14) Spherocytes 1+ (0-2) Stomatocytes 1+ (5-14) Schistocytes 1+ (0-2) Smear Tech's Comments MANUAL DIFF Anion Gap 9 L Estim Creat Clear Calc 109.7 Estimated GFR > 60 POC Glucose Random Glucose 117 H Lactic Acid Lactic Acid F/U @ 2Hr Lactic Acid F/U @ 4Hr Calcium 8.0 L Magnesium 2.2 Total Bilirubin 1.2 H Direct Bilirubin 0.7 H AST 110 H ALT 51 H Alkaline Phosphatase 141 H Ammonia Total Creatine Kinase Total Protein 6.4 L Albumin 2.9 L Urine Color Urine Appearance Urine pH Ur Specific [place] Urine Protein Urine Glucose (UA) Urine Ketones Urine Blood Urine Nitrite Ur Leukocyte Esterase Urine Opiates Screen Ur Buprenorphine Scrn Ur Oxycodone Screen Urine Methadone Screen Urine Fentanyl Screen Ur Barbiturates Screen Ur Phencyclidine Scrn Ur Amphetamines Screen U Benzodiazepines Scrn Urine Cocaine Screen U Marijuana (THC) Screen Ethyl Alcohol Assessment and Plan (1) Cocaine use disorder: Status: Acute Plan 45M PMH IVDA, alcohol dependence, HCV, PTSD, mood disorder, history of MSSA bacteremia and T11-T12 diskitis, history of right hand compartment syndrome, homelessness presented with fever Sepsis due to right hand cellulitis with risk factors for bacteremia due to IV drug use Continue vancomycin Zosyn follow up blood cultures Polysubstance dependence with withdrawal Addiction following, continue methadone Alcohol dependence with withdrawal Phenobarb, CIWA HCV with early cirrhosis Outpatient follow up Mild rhabdomyolysis Resolved Bilateral lower extremity skin maceration Wound care Acute hypokalemia and hypomagnesemia Replaced DVT prophylaxis with heparin subQ reason for continued hospitalization: Awaiting defervescence, blood cultures Quality Stroke Does the patient have a stroke diagnosis?: No VTE Prior VTE?: No VTE Risk Level:: Medical - moderate - high VTE Device Contraindication: N/A - Device Ordered VTE Drug Contraindication: N/A - Med Ordered
--- NOTE | 2025-08-12 11:35 | MHC.RECOVRN ---
Attempted to meet with pt after receiving addiction consult for recovery support. Pt declined to meet with this nurse at this time - said I had just started to fall asleep, I can't do this right now, come back later . This RN to approach pt later on today.
--- NOTE | 2025-08-12 14:54 | MHC.CM.PN ---
THIS CM ATTEMPTED TO MEET WITH PT, PT STATED I'M TIRED, I WANT TO SLEEP, LEAVE. THIS CM EXITED PTS ROOM PER HIS REQUEST. PER EMR REVIEW, PT IS HOMELESS, NO HCP ON FILE, NO PCP NOTED. DCP: LIKELY RETURN TO [place] VS HOMELESS LONGTERM, WILL LIKELY NEED ASSISTANCE W/ TRANSPORT AT [place].
--- NOTE | 2025-08-12 15:07 | MHC.RECOVRN ---
Second attempt made to discuss with pt recovery supports & options for addiction. Pt continues to state I can't do this right now. Come back later. and I'm sorry. You just keep coming at the wrong time. Will approach pt again at a later time.
--- NOTE | 2025-08-12 20:24 | HE.PHANOTE ---
RE [facility] Patients level came back this evening at 17. Patients indication is sepsis. Will continue with current dose of 1250 mg Q12H however will get another level tomorrow 08/13 @1800 to ensure level does not show supratherapeutic. predicted AUC 584
[2025-08-13] VITALS (7 sets, daily range): BP systolic 105–146; BP diastolic 61–78; PULSE 50–78; RESP 15–18; TEMP 36.1–37.1; O2SAT 96–100
[2025-08-13] MEDS: Lactated Ringers 1,000 ML 100 ML IVCONT ×3 (04:24→17:58)
[2025-08-13] MEDS: 0.9 % Sodium Chloride Flush 3 ML SYRINGE IVFLUSH ×3 (09:01→20:29)
--- NOTE | 2025-08-13 09:54 | P.PNIM_ITS ---
Subjective Subjective Date of Service: 08/13/25 Interval History: feeling ill Physical Exam 2 Exam: Exam: lethargic, ill appearing, maserated feet, systolic murmur Vital Signs: Vital Signs: Last Vital Signs Temp 97.5 F 08/13/25 07:24 Pulse 78 08/13/25 07:24 Resp 17 08/13/25 07:24 BP 111/73 08/13/25 07:24 Pulse Ox 97 08/13/25 07:24 O2 Del Method Room Air 08/13/25 07:24 O2 Flow Rate 2 08/11/25 08:42 BMI result Body Mass Index 27.6 Objective Data Active Medications Acetaminophen (Acetaminophen 325 Mg Tablet) 650 mg PO Q6H PRN PRN Reason: Pain, Mild 1-3,fever,headache Calcium Carbonate (Calcium Carbonate 750 Mg Tab.Chew) 750 mg PO Q4H PRN PRN Reason: Heartburn Folic Acid (Folic Acid 1 Mg Tablet) 1 mg PO DAILY [facility] Last Admin: 08/13/25 08:54 Dose: 1 mg Documented By: ALEX Heparin Sodium (Porcine) (Heparin Sodium,Porcine 5,000 Unit/Ml Vial) 5,000 unit SUBCUT Q12H [facility] Last Admin: 08/13/25 01:31 Dose: 5,000 unit Documented By: LAURA Lactated Ringer's (Lr) 1,000 mls @ 100 mls/hr IVCONT .Q10H [facility] Last Admin: 08/13/25 04:24 Dose: 100 mls/hr Documented By: LAURA Piperacillin Sod/Tazobactam (Sod 4.5 gm/ Sodium Chloride) 100 mls @ 200 mls/hr IV Q6H [facility] Last Infusion: 08/13/25 09:48 Dose: Infused Documented By: ALEX Vancomycin HCl 1,250 mg/ (Sodium Chloride) 250 mls @ 166.667 mls/hr IV Q12H [facility] Last Admin: 08/13/25 08:58 Dose: 166.67 mls/hr Documented By: ALEX Lactated Ringer's (Lr) 1,000 mls @ 100 mls/hr IVCONT .Q10H [facility] Last Admin: 08/13/25 09:03 Dose: 100 mls/hr Documented By: HO.SZOTPAT Magnesium Hydroxide (Milk Of Magnesia 30 Ml Oral.Susp) 30 ml PO DAILY PRN PRN Reason: Constipation Melatonin (Melatonin 3 Mg Tablet) 6 mg PO BEDTIME PRN PRN Reason: Insomnia Pharmacy Consult (Consult Rx Vancomycin Dosing) 1 each MISCELLANE DAILY PRN PRN Reason: Consult order Pharmacy Consult (Consult Rx Etoh Phenob Im/Po) 1 each MISCELLANE ONCE PRN; Protocol PRN Reason: Consult order Phenobarbital (Phenobarbital 15 Mg Tablet) 45 mg PO BID [facility]; Protocol Stop: 08/13/25 21:01 Last Admin: 08/13/25 08:54 Dose: 45 mg Documented By: ALEX Phenobarbital (Phenobarbital 30 Mg Tablet) 30 mg PO BID [facility]; Protocol Stop: 08/15/25 21:01 Phenobarbital (Phenobarbital 30 Mg Tablet) 30 mg PO DAILY [facility]; Protocol Stop: 08/17/25 09:01 Sodium Chloride (0.9 % Sodium Chloride Flush 3 Ml Syringe) [facility] Admin: 08/13/25 09:01 Dose: 3 ml Documented By: ALEX Thiamine HCl (Thiamine Hcl 100 Mg Tablet) 100 mg PO DAILY [facility] Last Admin: 08/13/25 08:54 Dose: 100 mg Documented By: ALEX Labs 08/12/25 07:12 08/12/25 07:12 Labs: Laboratory Results - last 24 hr 08/12/25 19:40 Random Vancomycin 17.0 Microbiology Microbiology Results: Microbiology 08/11/25 07:49 Blood Culture - Preliminary Blood - Venous No growth after 24 hours. 08/11/25 07:49 Blood Culture - Preliminary Blood - Venous No growth after 24 hours. Assessment and Plan (1) Cocaine use disorder: Status: Acute Plan 45M PMH IVDA, alcohol dependence, HCV, PTSD, mood disorder, history of MSSA bacteremia and T11-T12 diskitis, history of right hand compartment syndrome, homelessness presented with fever Sepsis due to right hand cellulitis with risk factors for bacteremia due to IV drug use Continue vancomycin Zosyn blood cultures negative so far, ID eval Polysubstance dependence with withdrawal Addiction following, continue methadone Alcohol dependence with withdrawal Phenobarb, CIWA HCV with early cirrhosis Outpatient follow up Mild rhabdomyolysis Resolved Bilateral lower extremity skin maceration Wound care Acute hypokalemia and hypomagnesemia Replaced DVT prophylaxis with heparin subQ reason for continued hospitalization: Awaiting defervescence, ID eval Quality Stroke Does the patient have a stroke diagnosis?: No VTE Prior VTE?: No VTE Risk Level:: Medical - moderate - high VTE Device Contraindication: N/A - Device Ordered VTE Drug Contraindication: N/A - Med Ordered
[2025-08-13] MEDS: methADONE HCl 20 MG/2 ML ORAL.CONC 10 MG PO ×2 (11:32→16:09)
[2025-08-13 18:13] LABS: Hematocrit 25.9 % (42.0-52.0); Hemoglobin 8.1 g/dl (14.0-18.0); Mean Corpuscular HGB Conc 31.3 g/dl (31.0-36.0); Mean Corpuscular Hemoglobin 20.2 pg (27.0-33.0); NRBC Abs Auto 0.000 X10*3/uL (0.0-0.012); NRBC Pct Auto 0.0 /100WBC (0.0-0.2); Platelet Count 279 X10*3/uL (160-400); Red Blood Count 4.01 X10*6/uL (4.60-5.80); White Blood Count 16.1 X10*3/uL (4.8-10.8)
[2025-08-13 18:20] LABS: Mean Corpuscular Volume 64.6 fL (80.0-98.0)
--- NOTE | 2025-08-13 18:25 | PC.NURSE ---
Pt difficult to redirect, demanding food and refusing seizure precautions, tele monitoring, and high fall risk precautions. Pt educated on importance of precautions. Reassurance provided. aware. Medicated per MAR. Call [facility] within reach.
[2025-08-13 18:27] LABS: Anion Gap 10 (12-20); Blood Urea Nitrogen 14 mg/dL (9-16); Calcium 7.9 mg/dL (8.4-10.2); Carbon Dioxide 23 mmol/L (22-29); Chloride 105 mmol/L (96-108); Creatinine Clr Calc Pharmacy 127.1; Estimated Glomerular Filt Rate > 60; Potassium 3.3 mmol/L (3.3-5.1); Sodium 135 mmol/L (135-145)
[2025-08-13 18:28] LABS: Creatinine Clr Calc Pharmacy 125.4; Estimated Glomerular Filt Rate > 60
--- NOTE | 2025-08-13 18:35 | HE.PHANOTE ---
Re: Vanco Renal function improved. Trough returned at 16.5, pt is therapeutic. Continue current regimen of 1250mg q12h with predicted AUC 504, predicted trough 15. Next trough 08/14 @ 1800.
--- NOTE | 2025-08-13 23:54 | PC.NURSE ---
Delayed entry: 21:34: Pt frequently repositioning self from bed to recliner, reporting he is always uncomfortable. Pt requesting to sleep on the floor, stating that is where I feel more comfortable . Pt provided multiple blankets and pillows, now resting on floor with decreased outbursts. wreath machine tender Brenna, nursing rug cleaning supervisor Mindy, and MD Perez aware. 22:28: This RN was notified by a SALES NEGOTIATOR that pt was pulling on IV lines and pulled over IV pole, which struck him in the leg. Upon entering the room, pt was still resting on the floor and IV pole was placed right side up. Pt refusing to tell this RN which leg was struck/refusing assessment of legs. Pt refusing offered tylenol, stating I'm fine, turn the lights off and leave me alone . Pt educated on importance of not pulling on IV lines. While in the room, this RN noted a vape on pt bedside table. Vape placed in pt belongings bag, labeled, and locked in [facility] locker. wreath machine tender Brenna aware. Pt now resting in bed.
[2025-08-14 03:29] VITALS: PULSE 50; RESP 20; TEMP 36.5
[2025-08-14] MEDS: 0.9 % Sodium Chloride Flush 3 ML SYRINGE IVFLUSH ×3 (08:31→20:32)
[2025-08-14] MEDS: methADONE HCl 20 MG/2 ML ORAL.CONC 30 MG PO (09:17)
--- NOTE | 2025-08-14 09:28 | MHC.CM.PN ---
ELECTRICAL LINE WORKER MET WITH PATIENT TO DISCUSS POSSIBLE NEED FOR LT IV ABX. PATIENT AGREEABLE TO REFERRAL TO [facility] TO FOLLOW. REFRERAL PLACED.
--- NOTE | 2025-08-14 09:42 | P.PNIM_ITS ---
Subjective Subjective Date of Service: 08/14/25 Interval History: feeling ill Physical Exam 2 Exam: Exam: lethargic, ill appearing, maserated feet, systolic murmur Vital Signs: Vital Signs: Last Vital Signs Temp 97.7 F 08/14/25 03:29 Pulse 50 08/14/25 03:29 Resp 20 08/14/25 03:29 BP 146/78 H 08/13/25 23:41 Pulse Ox 100 08/13/25 23:41 O2 Del Method Room Air 08/13/25 23:41 O2 Flow Rate 2 08/11/25 08:42 BMI result Body Mass Index 27.6 Objective Data Active Medications Acetaminophen (Acetaminophen 325 Mg Tablet) 650 mg PO Q6H PRN PRN Reason: Pain, Mild 1-3,fever,headache Calcium Carbonate (Calcium Carbonate 750 Mg Tab.Chew) 750 mg PO Q4H PRN PRN Reason: Heartburn Folic Acid (Folic Acid 1 Mg Tablet) 1 mg PO DAILY [facility] Last Admin: 08/13/25 08:54 Dose: 1 mg Documented By: ALEX Heparin Sodium (Porcine) (Heparin Sodium,Porcine 5,000 Unit/Ml Vial) 5,000 unit SUBCUT Q12H [facility] Last Admin: 08/14/25 02:13 Dose: 5,000 unit Documented By: BRIAN Hydromorphone HCl (Hydromorphone Hcl 1 Mg/Ml Syringe) 1 mg IVPUSH Q3H PRN; Protocol PRN Reason: Pain, Severe (Pain Scale 7-10) Last Admin: 08/14/25 08:29 Dose: 1 mg Documented By: LINDSEY Piperacillin Sod/Tazobactam (Sod 4.5 gm/ Sodium Chloride) 100 mls @ 200 mls/hr IV Q6H [facility] Last Admin: 08/14/25 08:30 Dose: 200 mls/hr Documented By: LINDSEY Vancomycin HCl 1,250 mg/ (Sodium Chloride) 250 mls @ 166.667 mls/hr IV Q12H [facility] Last Admin: 08/14/25 09:22 Dose: 166.67 mls/hr Documented By: LINDSEY Magnesium Hydroxide (Milk Of Magnesia 30 Ml Oral.Susp) 30 ml PO DAILY PRN PRN Reason: Constipation Melatonin (Melatonin 3 Mg Tablet) 6 mg PO BEDTIME PRN PRN Reason: Insomnia Pharmacy Consult (Consult Rx Vancomycin Dosing) 1 each MISCELLANE DAILY PRN PRN Reason: Consult order Pharmacy Consult (Consult Rx Etoh Phenob Im/Po) 1 each MISCELLANE ONCE PRN; Protocol PRN Reason: Consult order Phenobarbital (Phenobarbital 30 Mg Tablet) 30 mg PO BID [facility]; Protocol Stop: 08/15/25 21:01 Phenobarbital (Phenobarbital 30 Mg Tablet) 30 mg PO DAILY [facility]; Protocol Stop: 08/17/25 09:01 Sodium Chloride (0.9 % Sodium Chloride Flush 3 Ml Syringe) 3 ml IVFLUSH QSHIFT [facility] Last Admin: 08/14/25 08:31 Dose: 3 ml Documented By: LINDSEY Thiamine HCl (Thiamine Hcl 100 Mg Tablet) 100 mg PO DAILY [facility] Last Admin: 08/13/25 08:54 Dose: 100 mg Documented By: ALEX Labs 08/13/25 17:58 08/13/25 17:59 Labs: Laboratory Results - last 24 hr 08/13/25 08/13/25 17:58 17:59 MCV 64.6 L MCH 20.2 L MCHC 31.3 RDW 16.6 H Plt Count 279 MPV 10.4 Absolute Nucleated RBC 0.000 Nucleated RBC % (auto) 0.0 Smear Path Review Cancelled Anion Gap 10 L Estim Creat Clear Calc 127.1 125.4 Estimated GFR > 60 > 60 Random Glucose 135 H Calcium 7.9 L Random Vancomycin 16.5 Microbiology Microbiology Results: Microbiology 08/11/25 07:49 Blood Culture - Preliminary Blood - Venous No growth after 48 hours. 08/11/25 07:49 Blood Culture - Preliminary Blood - Venous No growth after 48 hours. Assessment and Plan (1) Cocaine use disorder: Status: Acute Plan 45M PMH IVDA, alcohol dependence, HCV, PTSD, mood disorder, history of MSSA bacteremia and T11-T12 diskitis, history of right hand compartment syndrome, homelessness presented with fever Sepsis due to right hand cellulitis with risk factors for systemic infection due to IV drug use Continue vancomycin Zosyn blood cultures negative so far, ID eval Polysubstance dependence with withdrawal Addiction following, continue methadone Alcohol dependence with withdrawal Phenobarb, CIWA HCV with early cirrhosis Outpatient follow up Mild rhabdomyolysis Resolved Bilateral lower extremity skin maceration Wound care Acute hypokalemia and hypomagnesemia Replaced DVT prophylaxis with heparin subQ reason for continued hospitalization: Active withdrawal, ID eval Quality Stroke Does the patient have a stroke diagnosis?: No VTE Prior VTE?: No VTE Risk Level:: Medical - moderate - high VTE Device Contraindication: N/A - Device Ordered VTE Drug Contraindication: N/A - Med Ordered
[2025-08-14 10:54] VITALS: BMI 27.6
--- NOTE | 2025-08-14 10:57 | MHC.CLN ---
PT WITH INCREASED NUTRITION RISK R/T PRESSURE INJURY PO INTAKE 100% X4 MEALS REGULAR DIET RECOMMEND ADDING ENSURE TID TO PROMOTE WOUND HEALING SUPP TO PROVIDE 1050KCALS, 60G PROTEIN MONITOR PO INTAKE AND ENCOURAGE SUPPLEMENTS SEE FULL ASSESSMENT
[2025-08-14 13:17] LABS: Creatinine Clr Calc Pharmacy 142.0; Estimated Glomerular Filt Rate > 60
--- NOTE | 2025-08-14 15:33 | W.PM.IDCN ---
History of Present Illness Data of Consult Service Date: 08/14/25 Requesting physician: Miguelito Uribe Primary Care Provider: Unknown Physician HPI Reason for consult: right hand cellulitis He presents with right hand pain. He injects IV drugs. He has no fever or chills. Pain present for three days. Review of Systems Review of Systems: Yes all other systems are reviewed and are negative PMFSH Past Medical History Medical History Bacteremia Depression Polysubstance abuse IVDU (intravenous drug user) Alcohol dependence Recurrent major depression-severe PTSD (post-traumatic stress disorder) PTSD (post-traumatic stress disorder) Hep C w/o coma, chronic Family History Family history: reviewed and not pertinent Surgical History Surgical History History of surgery on arm Social History Social History Household Members: None Household Members Other:: unable to obtain information from patient d/t sedation. Housing: Homeless Do you presently have visiting nurse or other home services: Yes ([employer]) Alcohol intake: current Alcohol intake frequency: a few times a week Alcohol type: beer and hard liquor Patient Tobacco Use Status: Current everyday Tobacco user Tobacco use type: Smokeless Tobacco Cigarette Packs Per Day: 2 Cigarettes Per Day: 40.0 Years Smoked: unknown e-Cigarette/Vaping Use: Currently Using Second Hand Smoke Exposure: No Substance Use Type: Crack/Cocaine and Heroin service: No Sexual orientation: Straight/Heterosexual Meds Allergies Allergy/AdvReac Type Severity Reaction Status Date / Time fish derived (FISH) Allergy Unknown UNKNOWN - Verified 08/11/25 07:25 NOT ANAPHYLAXIS PER PATIENT trazodone AdvReac Severe priapr Verified 08/11/25 07:25 tomato AdvReac Stomach Verified 08/11/25 07:25 Upset Active Medications: Current Medications Acetaminophen (Acetaminophen 325 Mg Tablet) 650 mg PO Q6H PRN PRN Reason: Pain, Mild 1-3,fever,headache Calcium Carbonate (Calcium Carbonate 750 Mg Tab.Chew) 750 mg PO Q4H PRN PRN Reason: Heartburn Folic Acid (Folic Acid 1 Mg Tablet) 1 mg PO DAILY [facility] Last Admin: 09/29/25 10:20 Dose: 1 mg Heparin Sodium (Porcine) (Heparin Sodium,Porcine 5,000 Unit/Ml Vial) 5,000 unit SUBCUT Q12H [facility] Last Admin: 08/14/25 13:29 Dose: 5,000 unit Hydromorphone HCl (Hydromorphone Hcl 1 Mg/Ml Syringe) 1 mg IVPUSH Q3H PRN; Protocol PRN Reason: Pain, Severe (Pain Scale 7-10) Last Admin: 08/14/25 13:29 Dose: 1 mg Piperacillin Sod/Tazobactam (Sod 4.5 gm/ Sodium Chloride) 100 mls @ 200 mls/hr IV Q6H [facility] Last Infusion: 08/14/25 14:00 Dose: Infused Vancomycin HCl 1,250 mg/ (Sodium Chloride) 250 mls @ 166.667 mls/hr IV Q12H [facility] Last Infusion: 08/14/25 10:52 Dose: Infused Magnesium Hydroxide (Milk Of Magnesia 30 Ml Oral.Susp) 30 ml PO DAILY PRN PRN Reason: Constipation Melatonin (Melatonin 3 Mg Tablet) 6 mg PO BEDTIME PRN PRN Reason: Insomnia Pharmacy Consult (Consult Rx Vancomycin Dosing) 1 each MISCELLANE DAILY PRN PRN Reason: Consult order Pharmacy Consult (Consult Rx Etoh Phenob Im/Po) 1 each MISCELLANE ONCE PRN; Protocol PRN Reason: Consult order Phenobarbital (Phenobarbital 30 Mg Tablet) 30 mg PO BID [facility]; Protocol Stop: 08/15/25 21:01 Last Admin: 08/14/25 10:21 Dose: 30 mg Phenobarbital (Phenobarbital 30 Mg Tablet) 30 mg PO DAILY [facility]; Protocol Stop: 08/17/25 09:01 Sodium Chloride (0.9 % Sodium Chloride Flush 3 Ml Syringe) 3 ml IVFLUSH QSHIFT [facility] Last Admin: 08/14/25 08:31 Dose: 3 ml Thiamine HCl (Thiamine Hcl 100 Mg Tablet) 100 mg PO DAILY [facility] Last Admin: 08/14/25 10:20 Dose: 100 mg Home Medications ?Medication ?Instructions ?Recorded ?Confirmed ?Last Taken ?Type gabapentin 800 mg tablet 800 mg PO TID 06/24/24 07/26/24 07/19/24 History clonidine HCl 0.1 mg tablet 0.1 mg PO BEDTIME 07/26/24 07/26/24 07/19/24 History hydroxyzine HCl 50 mg tablet 50 mg PO BEDTIME 07/26/24 07/26/24 07/19/24 History Physical Exam Vital Signs: Vital Signs: Last Vital Signs Temp 97.7 F 08/14/25 03:29 Pulse 50 08/14/25 03:29 Resp 20 08/14/25 03:29 BP 146/78 H 08/13/25 23:41 Pulse Ox 100 08/13/25 23:41 O2 Del Method Room Air 08/13/25 23:41 O2 Flow Rate 2 08/11/25 08:42 BMI result Body Mass Index 27.6 Const: General: cooperative HEENT: Head: Yes normal to inspection Face and sinus: Yes normal facial exam Mouth: Normal oral and palatal mucosa present Teeth and gingiva: dentition normal Eyes: General: appearance normal, both eyes and all related structures Pupils: Equal, round and reactive pupils present Resp: Effort & Inspection: normal respiratory effort Cardio: Rate: regular rate Rhythm: regular rhythm GI: Palpation (GI): Soft to palpation and nontender : General: Yes no CVA tenderness Back/Spine/Pelvis: Back: no CVA tenderness Skin: General skin exam: no rashes or lesions noted Neuro: General: moves all extremities Cranial nerves: Yes Equal, round and reactive pupils present Extrem: Other: right hand swelling improved,no open areas of concern Psych: Appearance: grossly normal Results Labs 08/13/25 17:58 08/14/25 12:45 Labs: Short CBC 08/13/25 Range/Units 17:58 WBC 16.1 H (4.8-10.8) X10*3/uL Hgb 8.1 L (14.0-18.0) g/dl Hct 25.9 L (42.0-52.0) % Plt Count 279 (160-400) X10*3/uL BMP 08/13/25 08/13/25 08/14/25 17:58 17:59 12:45 Sodium 135 Potassium 3.3 Chloride 105 Carbon Dioxide 23 BUN 14 Creatinine 0.76 0.77 0.68 Calcium 7.9 L Microbiology Microbiology Results: Microbiology 08/11/25 07:49 Blood - Venous Blood Culture - Preliminary No growth after 48 hours. 08/11/25 07:49 Blood - Venous Blood Culture - Preliminary No growth after 48 hours. Assessment and Plan (1) Opioid use disorder: Status: Acute (2) Wound check, abscess: Status: Acute Plan Po Doxycycline for 10 days, 100 mg po bid as patient can move fingers and hand fully.
[2025-08-14 15:55] VITALS: BP 123/74; PULSE 54; RESP 18; TEMP 36.7; O2SAT 98
--- NOTE | 2025-08-14 19:01 | HE.PHANOTE ---
RE: VANCO Trough returned @ 19.2. Decreasing dose to 1000 mg Q12H and will re-evaluate the trough tomorrow 08/15 @1800 to ensure safety. Predicted AUC 414 and trough 12.5.
[2025-08-14 20:00] VITALS: BP 97/54; PULSE 53; RESP 16; TEMP 36.6; O2SAT 100
[2025-08-15] VITALS (7 sets, daily range): BP systolic 106–149; BP diastolic 51–84; PULSE 42–53; RESP 14–18; TEMP 36.5–37.2; O2SAT 97–100
[2025-08-15 06:30] LABS: Hematocrit 29.1 % (42.0-52.0); Hemoglobin 9.2 g/dl (14.0-18.0); Mean Corpuscular HGB Conc 31.6 g/dl (31.0-36.0); Mean Corpuscular Hemoglobin 19.7 pg (27.0-33.0); NRBC Abs Auto 0.000 X10*3/uL (0.0-0.012); NRBC Pct Auto 0.0 /100WBC (0.0-0.2); Platelet Count 310 X10*3/uL (160-400); Red Blood Count 4.66 X10*6/uL (4.60-5.80); White Blood Count 10.0 X10*3/uL (4.8-10.8)
[2025-08-15 06:31] LABS: Mean Corpuscular Volume 62.4 fL (80.0-98.0)
[2025-08-15 06:37] LABS: Anion Gap 11 (12-20); Blood Urea Nitrogen 9 mg/dL (9-16); Calcium 7.7 mg/dL (8.4-10.2); Carbon Dioxide 23 mmol/L (22-29); Chloride 107 mmol/L (96-108); Creatinine Clr Calc Pharmacy 150.9; Estimated Glomerular Filt Rate > 60; Magnesium 1.7 mg/dL (1.6-2.6); Potassium 3.5 mmol/L (3.3-5.1); Sodium 137 mmol/L (135-145)
[2025-08-15] MEDS: methADONE HCl 20 MG/2 ML ORAL.CONC 40 MG PO (09:20)
[2025-08-15] MEDS: 0.9 % Sodium Chloride Flush 3 ML SYRINGE IVFLUSH ×3 (09:28→20:20)
--- NOTE | 2025-08-15 10:35 | HO.PM.IMPN ---
Subjective Subjective Date of Service: 08/15/25 Interval History: ongoing withdrawla Physical Exam Vital Signs: Vital Signs: Last Vital Signs Temp 98.6 F 08/15/25 07:12 Pulse 50 08/15/25 07:12 Resp 18 08/15/25 07:12 BP 133/67 08/15/25 07:12 Pulse Ox 97 08/15/25 07:12 O2 Del Method Room Air 08/15/25 07:12 O2 Flow Rate 2 08/11/25 08:42 BMI result Body Mass Index 27.6 lethargic, oriented times 3, ill appearing Const: General: cooperative HEENT: Head: Yes normal to inspection Face and sinus: Yes normal facial exam Mouth: Normal oral and palatal mucosa present Teeth and gingiva: dentition normal Eyes: General: appearance normal, both eyes and all related structures Pupils: Equal, round and reactive pupils present Resp: Effort & Inspection: normal respiratory effort Cardio: Rate: regular rate Rhythm: regular rhythm GI: Palpation (GI): Soft to palpation and nontender : General: Yes no CVA tenderness Back/Spine/Pelvis: Back: no CVA tenderness Skin: General skin exam: no rashes or lesions noted Neuro: General: moves all extremities Cranial nerves: Yes Equal, round and reactive pupils present Extrem: Other: right hand swelling improved,no open areas of concern Psych: Appearance: grossly normal Objective Data Active Medications Acetaminophen (Acetaminophen 325 Mg Tablet) 650 mg PO Q6H PRN PRN Reason: Pain, Mild 1-3,fever,headache Calcium Carbonate (Calcium Carbonate 750 Mg Tab.Chew) 750 mg PO Q4H PRN PRN Reason: Heartburn Folic Acid (Folic Acid 1 Mg Tablet) 1 mg PO DAILY [facility] Last Admin: 08/15/25 09:20 Dose: 1 mg Documented By: DIANE Heparin Sodium (Porcine) (Heparin Sodium,Porcine 5,000 Unit/Ml Vial) 5,000 unit SUBCUT Q12H [facility] Last Admin: 08/15/25 02:00 Dose: 5,000 unit Documented By: BRIAN Hydromorphone HCl (Hydromorphone Hcl 1 Mg/Ml Syringe) 1 mg IVPUSH Q3H PRN; Protocol PRN Reason: Pain, Severe (Pain Scale 7-10) Last Admin: 08/15/25 10:30 Dose: 1 mg Documented By: KATELYNN Piperacillin Sod/Tazobactam (Sod 4.5 gm/ Sodium Chloride) 100 mls @ 200 mls/hr IV Q6H [facility] Last Admin: 08/15/25 09:28 Dose: 200 mls/hr Documented By: DIANE Vancomycin HCl 1,000 mg/ (Sodium Chloride) 270 mls @ 270 mls/hr IV Q12H [facility] Last Admin: 08/15/25 09:33 Dose: 270 mls/hr Documented By: DIANE Magnesium Hydroxide (Milk Of Magnesia 30 Ml Oral.Susp) 30 ml PO DAILY PRN PRN Reason: Constipation Melatonin (Melatonin 3 Mg Tablet) 6 mg PO BEDTIME PRN PRN Reason: Insomnia Methadone HCl (Methadone Hcl 20 Mg/2 Ml Oral.Conc) 10 mg PO ONCE ONE Stop: 08/15/25 10:33 Pharmacy Consult (Consult Rx Vancomycin Dosing) 1 each MISCELLANE DAILY PRN PRN Reason: Consult order Pharmacy Consult (Consult Rx Etoh Phenob Im/Po) 1 each MISCELLANE ONCE PRN; Protocol PRN Reason: Consult order Phenobarbital (Phenobarbital 30 Mg Tablet) 30 mg PO BID [facility]; Protocol Stop: 08/15/25 21:01 Last Admin: 08/15/25 09:19 Dose: 30 mg Documented By: DIANE Phenobarbital (Phenobarbital 30 Mg Tablet) 30 mg PO DAILY [facility]; Protocol Stop: 08/17/25 09:01 Sodium Chloride (0.9 % Sodium Chloride Flush 3 Ml Syringe) [facility] Last Admin: 08/15/25 09:28 Dose: 3 ml Documented By: DIANE Thiamine HCl (Thiamine Hcl 100 Mg Tablet) 100 mg PO DAILY [facility] Last Admin: 08/15/25 09:20 Dose: 100 mg Documented By: DIANE Labs 08/15/25 05:54 08/15/25 05:54 Labs: Laboratory Results - last 24 hr 08/14/25 08/14/25 08/15/25 12:45 18:12 05:54 MCV 62.4 L MCH 19.7 L MCHC 31.6 RDW 16.0 Plt Count 310 MPV 10.5 Absolute Nucleated RBC 0.000 Nucleated RBC % (auto) 0.0 ESR 23 H Anion Gap 11 L Estim Creat Clear Calc 142.0 150.9 Estimated GFR > 60 > 60 Random Glucose 100 Calcium 7.7 L Magnesium 1.7 C-Reactive Protein 1.94 H Random Vancomycin 19.2 Assessment and Plan (1) Cocaine use disorder: Status: Acute Plan 45M PMH IVDA, alcohol dependence, HCV, PTSD, mood disorder, history of MSSA bacteremia and T11-T12 diskitis, history of right hand compartment syndrome, homelessness presented with fever Sepsis due to right hand cellulitis with risk factors for systemic infection due to IV drug use Continue vancomycin Zosyn blood cultures negative so far, ID appreciated - 10 days doxy po on discharge Polysubstance dependence with withdrawal Addiction following, continue methadone still with significant withdrawal symptoms Alcohol dependence with withdrawal Phenobarb, CIWA HCV with early cirrhosis Outpatient follow up Mild rhabdomyolysis Resolved Bilateral lower extremity skin maceration see wound care recs Acute hypokalemia and hypomagnesemia Replaced DVT prophylaxis with heparin subQ reason for continued hospitalization: Active withdrawal Quality Stroke Does the patient have a stroke diagnosis?: No VTE Prior VTE?: No VTE Risk Level:: Medical - moderate - high VTE Device Contraindication: N/A - Device Ordered VTE Drug Contraindication: N/A - Med Ordered
--- NOTE | 2025-08-15 10:55 | HO.ADDICTCON ---
History of Present Illness Date of Service: 08/15/2025 Chief Complaint: sepsis, right hand cellulitis Reason for Consult: OUD Sources of Information: patient interviewed and chart reviewed HPI Narrative: Patient is a 45 year old male with history of AUD, OUD and MDD. Medically admitted with cellulitis. Consult requested to assess and treat ongoing substance use. Patient seen in room 471. He is sleeping upon approach, wakes easily to voice. Minimal engagement in interview. Reports feeling terrible . When asked to elaborate on what he meant he stated, I feel awful, everything Reports he has been using a lot . States he was previously engaged in treatment with [facility], methadone, about 3 years ago. States his dose was 110mg. Labs reviewed, last HIV screen 2023 Hepatitis C + with VL (2023) Past Psychiatric History: Multiple IPLOC, other substance use treatment interventions. Medical Evaluation Reviewed: Yes Review of Systems Constitutional: Reports as per HPI Diagnostics Vital Signs (24Hr): Vital Signs - 24 hr 08/14/25 15:55 08/14/25 20:00 08/15/25 00:00 Temperature 98.1 F 97.8 F 98.1 F Pulse Rate 54 53 53 Respiratory Rate 18 16 18 Blood Pressure 123/74 97/54 L 106/51 L Pulse Oximetry 98 100 97 Oxygen Delivery Method Room Air Room Air Room Air 08/15/25 03:11 08/15/25 07:12 Temperature 97.7 F 98.6 F Pulse Rate 42 L 50 Respiratory Rate 18 18 Blood Pressure 119/67 133/67 Pulse Oximetry 99 97 Oxygen Delivery Method Room Air Room Air BMI result Body Mass Index 27.6 Labs 08/15/25 05:54 08/15/25 05:54 Labs: Laboratory Results - last 48 hr 08/13/25 08/13/25 08/14/25 17:58 17:59 12:45 WBC 16.1 H RBC 4.01 L Hgb 8.1 L Hct 25.9 L MCV 64.6 L MCH 20.2 L MCHC 31.3 RDW 16.6 H Plt Count 279 MPV 10.4 Absolute Nucleated RBC 0.000 Nucleated RBC % (auto) 0.0 Smear Path Review Cancelled ESR Sodium 135 Potassium 3.3 Chloride 105 Carbon Dioxide 23 Anion Gap 10 L BUN 14 Creatinine 0.76 0.77 0.68 Estim Creat Clear Calc 127.1 125.4 142.0 Estimated GFR > 60 > 60 > 60 Random Glucose 135 H Calcium 7.9 L Magnesium C-Reactive Protein Random Vancomycin 16.5 08/14/25 08/15/25 18:12 05:54 WBC 10.0 RBC 4.66 Hgb 9.2 L Hct 29.1 L MCV 62.4 L MCH 19.7 L MCHC 31.6 RDW 16.0 Plt Count 310 MPV 10.5 Absolute Nucleated RBC 0.000 Nucleated RBC % (auto) 0.0 Smear Path Review ESR 23 H Sodium 137 Potassium 3.5 Chloride 107 Carbon Dioxide 23 Anion Gap 11 L BUN 9 Creatinine 0.64 Estim Creat Clear Calc 150.9 Estimated GFR > 60 Random Glucose 100 Calcium 7.7 L Magnesium 1.7 C-Reactive Protein 1.94 H Random Vancomycin 19.2 Imaging Radiology Impressions: ITS Impressions Head CT 08/11/25 08:57 IMPRESSION: No acute intracranial hemorrhage or acute brain abnormality by CT. Electronically signed by: Dayne Abrams MD 08/11/2025 09:22 AM EDT RP Chest X-Ray 08/11/25 11:19 IMPRESSION: No acute cardiopulmonary abnormality. Electronically signed by: Javier Aguirre MD 08/11/2025 11:32 AM EDT RP Abdomen/Pelvis CT 08/11/25 11:42 IMPRESSION: 1. Prominent lymphadenopathy in the bilateral inguinal regions, of uncertain etiology. This had a similar appearance on the prior CT exam. 2. Hepatosplenomegaly. Diffuse fatty infiltration of the liver with early cirrhotic morphology. Periportal edema is present, nonspecific. 3. Small volume ascites surrounding the liver and spleen. Etiology is not clear however may be on the basis of portal hypertension. 4. Stable appearance of the lumbar spine without new permeative or erosive change. Electronically signed by: Scot Santos MD 08/11/2025 12:19 PM EDT RP Mental Status Exam Mental Status Exam Level of Consciousness: Awake Patient Behavior: Guarded Affect Description: Blunted Speech Pattern: Clear Thought Process: Intact Thought Content: positive for Intact and positive for [place] Judgement: Fair Medications Medications Current Medications Acetaminophen (Acetaminophen 325 Mg Tablet) 650 mg PO Q6H PRN PRN Reason: Pain, Mild 1-3,fever,headache Calcium Carbonate (Calcium Carbonate 750 Mg Tab.Chew) 750 mg PO Q4H PRN PRN Reason: Heartburn Folic Acid (Folic Acid 1 Mg Tablet) 1 mg PO DAILY [facility] Last Admin: 08/15/25 09:20 Dose: 1 mg Heparin Sodium (Porcine) (Heparin Sodium,Porcine 5,000 Unit/Ml Vial) 5,000 unit SUBCUT Q12H [facility] Last Admin: 08/15/25 02:00 Dose: 5,000 unit Hydromorphone HCl (Hydromorphone Hcl 1 Mg/Ml Syringe) 1 mg IVPUSH Q3H PRN; Protocol PRN Reason: Pain, Severe (Pain Scale 7-10) Last Admin: 08/15/25 10:30 Dose: 1 mg Piperacillin Sod/Tazobactam (Sod 4.5 gm/ Sodium Chloride) 100 mls @ 200 mls/hr IV Q6H [facility] Last Admin: 08/15/25 09:28 Dose: 200 mls/hr Vancomycin HCl 1,000 mg/ (Sodium Chloride) 270 mls @ 270 mls/hr IV Q12H [facility] Last Admin: 08/15/25 09:33 Dose: 270 mls/hr Magnesium Hydroxide (Milk Of Magnesia 30 Ml Oral.Susp) 30 ml PO DAILY PRN PRN Reason: Constipation Melatonin (Melatonin 3 Mg Tablet) 6 mg PO BEDTIME PRN PRN Reason: Insomnia Pharmacy Consult (Consult Rx Vancomycin Dosing) 1 each MISCELLANE DAILY PRN PRN Reason: Consult order Pharmacy Consult (Consult Rx Etoh Phenob Im/Po) 1 each MISCELLANE ONCE PRN; Protocol PRN Reason: Consult order Phenobarbital (Phenobarbital 30 Mg Tablet) 30 mg PO BID [facility]; Protocol Stop: 08/15/25 21:01 Last Admin: 08/15/25 09:19 Dose: 30 mg Phenobarbital (Phenobarbital 30 Mg Tablet) 30 mg PO DAILY [facility]; Protocol Stop: 08/17/25 09:01 Sodium Chloride (0.9 % Sodium Chloride Flush 3 Ml Syringe) 3 ml IVFLUSH QSHIFT [facility] Last Admin: 08/15/25 09:28 Dose: 3 ml Thiamine HCl (Thiamine Hcl 100 Mg Tablet) 100 mg PO DAILY [facility] Last Admin: 08/15/25 09:20 Dose: 100 mg Allergies Allergies Allergy/AdvReac Type Severity Reaction Status Date / Time fish derived (FISH) Allergy Unknown UNKNOWN - Verified 08/11/25 07:25 NOT ANAPHYLAXIS PER PATIENT trazodone AdvReac Severe priapr Verified 08/11/25 07:25 tomato AdvReac Stomach Verified 08/11/25 07:25 Upset Assessment & Plan Assessment & Plan (1) Opioid use disorder: Status: Acute Code(s): F11.90 - Opioid use, unspecified, uncomplicated Assessment and Plan: methadone 50mg today will add 10mg PRN for evening --monitor HR as he has been high 40's low 50's methadone 65mg in AM --rapid titration appropriate given previous methadone doses and current fentanyl use and withdrawal sx global project manager coordinating OTP referral , overdose prevention discussion take home narcan Total time managing care of this patient today __20__ minutes. PMFSH Past Medical History Medical History Bacteremia Depression Polysubstance abuse IVDU (intravenous drug user) Alcohol dependence Recurrent major depression-severe PTSD (post-traumatic stress disorder) PTSD (post-traumatic stress disorder) Hep C w/o coma, chronic Family History Family history: reviewed and not pertinent Surgical History Surgical History History of surgery on arm Social History Social History Household Members: None Household Members Other:: unable to obtain information from patient d/t sedation. Housing: Homeless Do you presently have visiting nurse or other home services: Yes ([facility]) Alcohol intake: current Alcohol intake frequency: a few times a week Alcohol type: beer and hard liquor Patient Tobacco Use Status: Current everyday Tobacco user Tobacco use type: Smokeless Tobacco Cigarette Packs Per Day: 2 Cigarettes Per Day: 40.0 Years Smoked: unknown e-Cigarette/Vaping Use: Currently Using Second Hand Smoke Exposure: No Substance Use Type: Crack/Cocaine and Heroin service: No Sexual orientation: Straight/Heterosexual
[2025-08-15] MEDS: methADONE HCl 20 MG/2 ML ORAL.CONC 10 MG PO (11:25)
--- NOTE | 2025-08-15 18:05 | MHC.RECOVRN ---
TW met with pt in 471 to offer continued support related to substance use. On approach pt was sitting in bed watching TV. He was pleasant and engaged w/ TW during interview and began eating his meal tray shorty after TW entered the room. When asked how he's feeling pt reports continued withdrawal symptoms. When asked about specific symptoms he's experiencing he states, I feel weak and I have cravings to use but I just don't want to Pt reports the desire to attend a CSS upon discharge If I don't get placement somewhere, I'm going to out there . Pt voiced desire to attend [facility] I did like a year there and did great, then my dad and I relapsed . Pt gave verbal permission, as he was unable to sign JASON, to give TW permission to call José Luis Singletary at [facility], he's my housing counselor and can get me into [place] . TW spoke to José Luis at the [facility] after verbal permission given to José Luis from the pt. José Luis reports the patient did very well at [place], maintained abstinence for almost 1 year and secured an appt with José Luis's help and currently has a form of Section 8, however he states that José Luis relinquished his apartment instead of being evicted and is currently unhoused. Pt still has access to Sec 8 voucher. José Luis reports he will follow up with [facility] at 7am to inquire about bed availability. José Luis also reports the pt currently has a check for $3000 waiting for him at the [facility] and feels if the pt is discharged without placement he will utilize the money to obtained drugs and will probably be gone in a short period of time Tw contacted [facility], [facility], [facility], [place] and [facility] for CSS placement and was instructed that all facilities currently have no availability or wait lists from 2 weeks to 1 month. Tw to follow up with José Luis at the [facility] in the morning to inquire about the possibility of placement at [place].
[2025-08-16] VITALS: BP 123/68; PULSE 52; RESP 16; TEMP 37.1; O2SAT 96
[2025-08-16 03:09] VITALS: BP 129/77; PULSE 50; RESP 17; TEMP 36.7; O2SAT 98
[2025-08-16 07:29] LABS: Hematocrit 30.3 % (42.0-52.0); Hemoglobin 9.5 g/dl (14.0-18.0); Mean Corpuscular HGB Conc 31.4 g/dl (31.0-36.0); Mean Corpuscular Hemoglobin 20.0 pg (27.0-33.0); NRBC Abs Auto 0.000 X10*3/uL (0.0-0.012); NRBC Pct Auto 0.0 /100WBC (0.0-0.2); Platelet Count 326 X10*3/uL (160-400); Red Blood Count 4.76 X10*6/uL (4.60-5.80); White Blood Count 10.4 X10*3/uL (4.8-10.8)
[2025-08-16 07:35] LABS: Mean Corpuscular Volume 63.7 fL (80.0-98.0)
[2025-08-16 07:38] LABS: Anion Gap 10 (12-20); Blood Urea Nitrogen 5 mg/dL (9-16); Calcium 7.7 mg/dL (8.4-10.2); Carbon Dioxide 24 mmol/L (22-29); Chloride 108 mmol/L (96-108); Creatinine Clr Calc Pharmacy 148.6; Estimated Glomerular Filt Rate > 60; Potassium 3.6 mmol/L (3.3-5.1); Sodium 138 mmol/L (135-145)
[2025-08-16] MEDS: methADONE HCl 20 MG/2 ML ORAL.CONC 65 MG PO (08:11)
[2025-08-16] MEDS: 0.9 % Sodium Chloride Flush 3 ML SYRINGE IVFLUSH ×2 (08:11→20:35)
--- NOTE | 2025-08-16 09:24 | MHC.RECOVRN ---
TW spoke to [facility] in [place] who states they have 1 male bed available for CSS placement Referral has been sent over for review and potential placement.
[2025-08-16 11:32] VITALS: BP 128/65; PULSE 67; RESP 18; TEMP 36.3; O2SAT 96
--- NOTE | 2025-08-16 12:22 | MHC.CLN ---
F/U PO INTAKE 50% X2 MEALS REGULAR DIET RECEIVING ENSURE TID TO PROMOTE WOUND HEALING SUPP PROVIDES 1050KCALS, 60G PROTEIN MONITOR PO INTAKE AND ENCOURAGE SUPPLEMENTS
--- NOTE | 2025-08-16 13:15 | MHC.CM.PN ---
EMR REVIEWED AND PER MD ROUNDS, PT IS MEDICALLY CLEARED FOR DISCHARGE. RECOVERY NURSE HAS SENT A REFERRAL TO [facility], AWAITING REFERRAL ACCEPTANCE.
[2025-08-16 15:38] VITALS: BP 126/87; PULSE 57; RESP 20; TEMP 36.2; O2SAT 98
--- NOTE | 2025-08-16 15:45 | MHC.RECOVRN ---
paperwork has been sent to [facility] for methadone dosing in the community upon discharge
--- NOTE | 2025-08-16 16:07 | P.PNIM_ITS ---
Subjective Subjective Date of Service: 08/16/25 Interval History: No acute issues overnight. No overt withdrawal symptoms Review of Systems Denies chest pain Denies shortness of breath Denies nausea vomiting diarrhea Denies fever chills Physical Exam 2 Vital Signs: Vital Signs: Last Vital Signs Temp 97.1 F 08/16/25 15:38 Pulse 57 08/16/25 15:38 Resp 20 08/16/25 15:38 BP 126/87 08/16/25 15:38 Pulse Ox 98 08/16/25 15:38 O2 Del Method Room Air 08/16/25 15:38 O2 Flow Rate 2 08/11/25 08:42 BMI result Body Mass Index 27.6 Const: Other: Awake alert no acute distress Resp: Other: Clear to auscultation bilaterally no rales rhonchi or wheeze Cardio: Other: No S4; positive S1-S2; no S3 murmurs rubs or gallops GI: Other: Soft nontender nondistended normoactive bowel sounds Extrem: Other: No edema bilaterally. CMS good to right hand/fingers Objective Data Active Medications Acetaminophen (Acetaminophen 325 Mg Tablet) 650 mg PO Q6H PRN PRN Reason: Pain, Mild 1-3,fever,headache Calcium Carbonate (Calcium Carbonate 750 Mg Tab.Chew) 750 mg PO Q4H PRN PRN Reason: Heartburn Folic Acid (Folic Acid 1 Mg Tablet) 1 mg PO DAILY [facility] Last Admin: 08/16/25 08:12 Dose: 1 mg Documented By: ROBBY Heparin Sodium (Porcine) (Heparin Sodium,Porcine 5,000 Unit/Ml Vial) 5,000 unit SUBCUT Q12H [facility] Last Admin: 08/16/25 14:05 Dose: 5,000 unit Documented By: ROBBY Hydromorphone HCl (Hydromorphone Hcl 1 Mg/Ml Syringe) 1 mg IVPUSH Q3H PRN; Protocol PRN Reason: Pain, Severe (Pain Scale 7-10) Last Admin: 08/16/25 14:05 Dose: 1 mg Documented By: ROBBY Piperacillin Sod/Tazobactam (Sod 4.5 gm/ Sodium Chloride) 100 mls @ 200 mls/hr IV Q6H [facility] Last Infusion: 08/16/25 14:39 Dose: Infused Documented By: ROBBY Vancomycin HCl 1,000 mg/ (Sodium Chloride) 270 mls @ 270 mls/hr IV Q12H [facility] Last Infusion: 08/16/25 09:15 Dose: Infused Documented By: ROBBY Magnesium Hydroxide (Milk Of Magnesia 30 Ml Oral.Susp) 30 ml PO DAILY PRN PRN Reason: Constipation Melatonin (Melatonin 3 Mg Tablet) 6 mg PO BEDTIME PRN PRN Reason: Insomnia Methadone HCl (Methadone Hcl 20 Mg/2 Ml Oral.Conc) 10 mg PO DAILY PRN PRN Reason: Opiate Withdrawal Methadone HCl (Methadone Hcl 20 Mg/2 Ml Oral.Conc) 65 mg PO DAILY@0800 [facility] Last Admin: 08/16/25 08:11 Dose: 65 mg Documented By: ROBBY Co-signed By: ALEX Pharmacy Consult (Consult Rx Vancomycin Dosing) 1 each MISCELLANE DAILY PRN PRN Reason: Consult order Pharmacy Consult (Consult Rx Etoh Phenob Im/Po) 1 each MISCELLANE ONCE PRN; Protocol PRN Reason: Consult order Phenobarbital (Phenobarbital 30 Mg Tablet) 30 mg PO DAILY [facility]; Protocol Stop: 08/17/25 09:01 Last Admin: 08/16/25 08:12 Dose: 30 mg Documented By: ROBBY Sodium Chloride (0.9 % Sodium Chloride Flush 3 Ml Syringe) 3 ml IVFLUSH QSHIFT [facility] Last Admin: 08/16/25 14:39 Dose: Not Given Documented By: ROBBY Non-Admin Reason: Previously Administered Thiamine HCl (Thiamine Hcl 100 Mg Tablet) 100 mg PO DAILY [facility] Last Admin: 08/16/25 08:12 Dose: 100 mg Documented By: ROBBY Labs 08/16/25 07:05 08/16/25 07:05 Labs: Laboratory Results - last 24 hr 08/15/25 08/16/25 18:09 07:05 MCV 63.7 L MCH 20.0 L MCHC 31.4 RDW 15.9 Plt Count 326 MPV 11.0 Absolute Nucleated RBC 0.000 Nucleated RBC % (auto) 0.0 Anion Gap 10 L Estim Creat Clear Calc 148.6 Estimated GFR > 60 Random Glucose 98 Calcium 7.7 L Random Vancomycin 16.3 Microbiology Microbiology Results: Microbiology 08/11/25 07:49 Blood Culture - Final Blood - Venous No growth after 5 days. 08/11/25 07:49 Blood Culture - Final Blood - Venous No growth after 5 days. Assessment and Plan (1) Alcohol withdrawal syndrome: Status: Inactive Plan 45M PMH IVDA, alcohol dependence, HCV, PTSD, mood disorder, history of MSSA bacteremia and T11-T12 diskitis, history of right hand compartment syndrome, homelessness presented with fever 1. Sepsis secondary to right hand cellulitis (resolved) -vancomycin /zosyn (6) -blood cultures negative - ID appreciated - 10 days doxy po on discharge 2.Polysubstance dependence with withdrawal -Addiction following, continue methadone -no significant withdrawal symptoms 3.Alcohol dependence -Phenobarb, CIWA Heparin Full code Quality Stroke Does the patient have a stroke diagnosis?: No VTE Prior VTE?: No VTE Risk Level:: Medical - moderate - high VTE Device Contraindication: N/A - Device Ordered VTE Drug Contraindication: N/A - Med Ordered
--- NOTE | 2025-08-16 19:17 | HE.PHANOTE ---
RE: VANCO Trough returned @ 10.4. Renal function is stable, increasing dose to 1250 mg Q12H to ensure efficacy and safety. Predicted AUC 497 and trough 14.4. Next trough due 08/17 @1800. Will continue to monitor.
[2025-08-16 19:37] VITALS: BP 123/72; PULSE 61; RESP 16; TEMP 36.7; O2SAT 99
[2025-08-16 22:56] VITALS: BP 132/78; PULSE 57; RESP 18; TEMP 36.6; O2SAT 98
[2025-08-17 06:31] LABS: Creatinine Clr Calc Pharmacy 142.0; Estimated Glomerular Filt Rate > 60
[2025-08-17 07:45] VITALS: BP 144/78; PULSE 56; RESP 16; TEMP 36.6; O2SAT 100
[2025-08-17] MEDS: methADONE HCl 20 MG/2 ML ORAL.CONC 65 MG PO (08:52)
--- NOTE | 2025-08-17 11:12 | MHC.RECOVRN ---
TW spoke to Gigi at [facility] who states pt is cleared clinically , however, still needs medical review. Gigi states there are no male bed currently available but state the pt can call once discharged and if a bed is available he can potential be admitted pending a clean drug screen and negative breathalyzer. Information relayed to pt and he verbalized understanding. Pt was provided resouces inclusing contact information for [employer]. Pt also provided clothing as he states his is sitting in bag soiled
[2025-08-17 11:20] VITALS: BP 124/68; PULSE 58; RESP 16; TEMP 36.6; O2SAT 97
--- NOTE | 2025-08-17 14:00 | PM.DS ---
DS: Providers Provider Date of Service: 08/17/25 Date of admission: 08/11/25 13:21 Date of discharge: 08/17/25 Primary care physician: Unknown Physician Consults: 08/11/25 12:05 Addiction Medicine Provider Routine Consulting Provider: Addiction Covering Reason for consultation: IVDU, etoh use disorder Has provider been notified: No Consult to Wound Care Routine Reason for consultation: right hand; right foot wounds 08/11/25 17:55 Addiction Medicine Provider Routine Consulting Provider: Addiction Covering Reason for consultation: Requesting Detox and Desires for Lifestyle Change 08/13/25 09:53 Consult to Infectious Diseases Routine Consulting Provider: [facility] [place] [facility] Reason for consultation: ivda sepsis, no bacteremia, ?source DS: Diagnosis Discharge Diagnosis (1) Alcohol withdrawal syndrome: Status: Inactive (2) Cellulitis of hand, right: Status: Inactive DS: Summary Hospital Course Hospital Course: 45-year-old male with history of IVDU, alcohol use disorder was brought into the hospital after being found outside by the police. He was noted to have a fever of 102.2, and was noted to be tachycardic, tachypneic. Initially he was somnolent but throughout the course of his time in the emergency department he became more alert. Workup in the emergency department was significant for lactic acidosis with an initial lactic acid of 3.4 which improved to 2.1 after fluids. Potassium was low at 3.1, magnesium was low at 1.5. LFTs were elevated. Tox screen was positive for opiates, fentanyl, cocaine. Brain CT was unremarkable. Right hand was noted to be red with multiple wounds, bilateral feet were noted to be macerated. Chest x-ray, urinalysis and CT of the abdomen and pelvis did not show any infectious process. Patient reports drinking 1 L of vodka daily, using cocaine and heroin intravenously. He does admit to injecting in his right hand. In the emergency department he received 30 cc/kg bolus of IV fluid, empiric antibiotics with IV Zosyn and IV vancomycin. Hospital Course Admitted to telemetry where monitor failed to demonstrate any acute dysrhythmias. Patient started on Zosyn and vancomycin. Patient continued to improve over the next several days. Seen by addiction Medicine and methadone continued. Seen by Infectious Disease; at this point acceptable to switch to p.o. doxy to complete course. He will be discharged on same and follow up with his PCP Time Attestation Discharge Coordination Time (in mins): 35 Quality: Safe Use of Opioids Does Pt have an Active Cancer Diagnosis on the Problem List?: No Quality: Stroke Does the patient have a stroke diagnosis?: No Physical Exam Vital Signs: Vital Signs: Last Vital Signs Temp 97.8 F 08/17/25 11:20 Pulse 58 08/17/25 11:20 Resp 16 08/17/25 11:20 BP 124/68 08/17/25 11:20 Pulse Ox 97 08/17/25 11:20 O2 Del Method Room Air 08/17/25 11:20 O2 Flow Rate 2 08/11/25 08:42 BMI result Body Mass Index 27.6 Const: Other: Awake alert no acute distress Resp: Other: Clear to auscultation bilaterally no rales rhonchi or wheeze Cardio: Other: No S4; positive S1-S2; no S3 murmurs rubs or gallops GI: Other: Soft nontender nondistended normoactive bowel sounds Extrem: Other: No edema bilaterally. CMS good to right hand/fingers DS: Data Data Completed and Pending Completed studies during hospitalization [Text1]: Procedures Detoxification Services for Substance Abuse Treatment (06/24/24) Drainage of Left Upper Extremity, Open Approach (09/22/23) Insertion of Infusion Device into Superior Vena Cava, Percutaneous Approach (07/05/24) Ultrasonography of Superior Vena Cava, Guidance (07/05/24) Labs on day of discharge: Laboratory Results - last 24 hr 08/16/25 08/17/25 18:20 05:47 Creatinine 0.68 Estim Creat Clear Calc 142.0 Estimated GFR > 60 Random Vancomycin 10.4 L Discharge Plan Discharge Anticipated Discharge Date/Time: 08/17/25 09:17 Patient Disposition: Home, Self-Care Discharge Diagnosis: Right hand cellulitis Referrals: Physician,Unknown J [Primary Care Provider, Medical] - 1 Week Discharge Medications: New doxycycline hyclate 100 mg tablet 100 mg PO BID Qty: 20 0RF oxycodone 10 mg tablet 10 mg PO Q6H PRN (Reason: pain) Qty: 15 0RF Rx Instructions: Partial Fill upon patient request. Continued gabapentin 800 mg tablet 800 mg PO TID methadone [Methadose] 10 mg/mL Concentrate 80 mg PO DAILY Qty: 1000 0RF Rx Instructions: Partial Fill upon patient request. clonidine HCl 0.1 mg tablet 0.1 mg PO BEDTIME hydroxyzine HCl 50 mg tablet 50 mg PO BEDTIME Discharge Orders: Discharge Order (Routine); Ordered 08/17/25 Ordered By: Gerald Dimas Diet: Advance to usual diet Activity on Discharge: As tolerated Stand Alone Forms: Patient Portal Discharge page Print Language: [place]i Care Plan Goals: Continue meds as taken prior to hospitalization including methadone Health Concerns: Complete a course of doxycycline 100 mg twice daily to complete treatment for your cellulitis. Oxycodone as needed for pain Plan of Treatment: Follow up with PCP next available Assessment: See discharge summary
== END 2025-08-17 17:22 | disposition home or self-care (01) | DRG 720 ==
LOC: HO.ED 08:30 → HO.EDOVER 13:22 → HO.IMC 16:13
PROVIDERS: Hospitalist; Internal Medicine; Admitting Provider Physician Assistant Medical; Emergency Provider Emergency Medicine Emergency Medical Services; Visit Provider Hospitalist
DX: A41.9 Sepsis, unspecified organism (principal); M62.82 Rhabdomyolysis; K74.60 Unspecified cirrhosis of liver; B19.20 Unspecified viral hepatitis C without hepatic coma; F14.10 Cocaine abuse, uncomplicated; E83.42 Hypomagnesemia; D50.9 Iron deficiency anemia, unspecified; T69.022A Immersion foot, left foot, initial encounter; T69.021A Immersion foot, right foot, initial encounter; F10.239 Alcohol dependence with withdrawal, unspecified; R65.20 Severe sepsis without septic shock; E87.6 Hypokalemia; L03.113 Cellulitis of right upper limb; F11.23 Opioid dependence with withdrawal; F19.239 Other psychoactive substance dependence with withdrawal, unspecified; F17.210 Nicotine dependence, cigarettes, uncomplicated; Z71.6 Tobacco abuse counseling; Z59.02 Unsheltered homelessness; Z79.899 Other long term (current) drug therapy
CPT/HCPCS: 36415; 70450; 71045; 74177; 80048; 80053; 80076; 80202; 80307; 81003; 82140; 82550; 82565; 82947; 83605; 83735; 84484; 85007; 85025; 85027; 85652; 86140; 87040; 93005; 99285; J0131; J1171; J1644; J2543; J2560; J3373; J3374; J3475; J3480; J7120; Q9967; S9485

== ENCOUNTER → 2025-08-11 07:55 | Outpatient (BNV) | payer MEDICAID, SELFPAY | PROVIDERS: Emergency Provider Emergency Medicine Emergency Medical Services; Visit Provider Radiology Diagnostic Radiology | DX: R59.0 Localized enlarged lymph nodes (principal); R16.2 Hepatomegaly with splenomegaly, not elsewhere classified; R18.8 Other ascites; R41.82 Altered mental status, unspecified | CPT/HCPCS: 70450; 71045; 74177 ==

== ENCOUNTER → 2025-08-11 07:55 | Outpatient (BNV) | payer MEDICAID, SELFPAY | PROVIDERS: Admitting Provider Physician Assistant Medical; Emergency Provider Emergency Medicine Emergency Medical Services; Visit Provider Internal Medicine Cardiovascular Disease | DX: R94.31 Abnormal electrocardiogram [ECG] [EKG] (principal); R41.82 Altered mental status, unspecified | CPT/HCPCS: 93010 ==

== ENCOUNTER → 2025-08-11 13:21 | Outpatient (BNV) | payer OTHER, SELFPAY | PROVIDERS: Admitting Provider Physician Assistant Medical; Emergency Provider Emergency Medicine Emergency Medical Services; Visit Provider Nurse Practitioner Psychiatric/Mental Health | DX: F11.90 Opioid use, unspecified, uncomplicated (principal) | CPT/HCPCS: 99232 ==

== ENCOUNTER → 2025-08-11 13:21 | Outpatient (BNV) | payer MEDICAID, SELFPAY | PROVIDERS: Admitting Provider Physician Assistant Medical; Emergency Provider Emergency Medicine Emergency Medical Services; Visit Provider Physician Assistant Medical | DX: F14.10 Cocaine abuse, uncomplicated (principal) | CPT/HCPCS: 99223; 99233; 99499 ==

== ENCOUNTER → 2025-08-11 13:21 | Outpatient (BNV) | payer MEDICAID, SELFPAY | PROVIDERS: Admitting Provider Physician Assistant Medical; Emergency Provider Emergency Medicine Emergency Medical Services; Visit Provider Internal Medicine | DX: F11.90 Opioid use, unspecified, uncomplicated (principal); Z51.89 Encounter for other specified aftercare | CPT/HCPCS: 99222 ==